=== PATIENT | female | born 1970 | race African-American/Black ===

== ENCOUNTER 2020-08-01 13:16 | Outpatient (REF) | payer MEDICAID, SELFPAY ==
[2020-08-06 03:11] LABS: HPV mRNA E6/E7 rflx Not Detected (Not Detected)
== END 2020-08-01 13:17 | disposition home or self-care (01) ==
LOC: HO.LAB 13:16
PROVIDERS: PCP Family Medicine; Referring Provider Family Medicine; Visit Provider Obstetrics & Gynecology
DX: Z01.419 Encounter for gynecological examination (general) (routine) without abnormal findings (principal)
CPT/HCPCS: 87624; 87625; 88142

== ENCOUNTER 2020-08-19 14:08 | Outpatient (REF) | payer MEDICAID, SELFPAY ==
--- NOTE | 2020-08-19 14:15 | XR_ITS ---
EXAMINATION: XR HAND, RIGHT CLINICAL INFORMATION: Pain in right hand. COMPARISON: 06/12/2019 TECHNIQUE: PA, lateral, and oblique views of the right hand. FINDINGS: Bones have normal alignment throughout the hand and wrist. No fracture or subluxation. No acute findings compared to 06/12/2019. Chronic nonuniform narrowing of joint space, subarticular sclerosis, subarticular cystic change and osteophyte formation of the moderately degenerated first carpometacarpal joint. Mild osteoarthritic change at the thumb interphalangeal joint. No erosion or periostitis. XR/XR hand RT min 3V IMPRESSION: * No acute findings in the right hand or wrist compared to 06/12/2019. * Chronic, moderate osteoarthritis of the first carpometacarpal joint, and mild osteoarthritis of the thumb interphalangeal joint.
== END 2020-08-19 14:09 | disposition home or self-care (01) ==
LOC: HO.XRAY 14:08
PROVIDERS: PCP Family Medicine; Visit Provider Nurse Practitioner Family
DX: M79.641 Pain in right hand (principal)
CPT/HCPCS: 73130

== ENCOUNTER 2020-08-29 10:58 | Outpatient (REF) | payer MEDICAID, SELFPAY ==
--- NOTE | 2020-08-29 11:02 | MM_ITS ---
EXAMINATION: MM SCREENING DIGITAL MAMMOGRAPHY, BILATERAL CLINICAL INFORMATION: Screening. Asymptomatic. The lifetime risk of breast cancer based on the Tyrer-Cuzick Model is 15%. COMPARISON: Mammography: 03/21/2018, 02/06/2017 TECHNIQUE: Digital mammography is performed in craniocaudal and mediolateral oblique views along with computer-aided detection (CAD). FINDINGS: There are scattered areas of fibroglandular density (ACR BI-RADS breast composition Category b). There are no significant masses, abnormal calcifications, or other abnormalities. Parenchymal pattern is similar to prior exam. No developing density. No significant changes. MM/MM screening mammo BI IMPRESSION: No mammographic evidence of malignancy. ASSESSMENT: BI-RADS 1: Negative RECOMMENDATION: Routine annual mammography screening. This patient's information was entered into a reminder system with a target due date for their next mammogram.
== END 2020-08-29 10:59 | disposition home or self-care (01) ==
LOC: HO.MAMMO 10:58
PROVIDERS: Visit Provider Obstetrics & Gynecology
DX: Z01.419 Encounter for gynecological examination (general) (routine) without abnormal findings (principal); Z12.31 Encounter for screening mammogram for malignant neoplasm of breast
CPT/HCPCS: 77067

== ENCOUNTER → 2020-09-21 10:41 | Outpatient (BNVA) | payer MEDICAID, SELFPAY | PROVIDERS: PCP Family Medicine; Visit Provider Internal Medicine Gastroenterology | DX: Z76.89 Persons encountering health services in other specified circumstances (principal) ==

== ENCOUNTER 2020-10-19 08:58 | Outpatient (REF) | payer MEDICAID, SELFPAY ==
--- NOTE | ~2020-10-19 | XR_ITS ---
EXAMINATION: XR HAND, RIGHT CLINICAL INFORMATION: Pain COMPARISON: Previous x-ray August 2020 TECHNIQUE: PA, lateral, and oblique views of the right hand. FINDINGS: The bones are osteopenic. No fracture or dislocation is seen. There is arthritis at the first FCI joint with joint space narrowing and osteophyte formation. There are small osteophytes at the IP joint of the thumb as well. Joint spaces are otherwise normal. Soft tissues are normal. XR/XR hand RT min 3V IMPRESSION: Arthritis of the thumb at the first FCI joint and IP joints. Osteopenia.
== END 2020-10-19 08:59 | disposition home or self-care (01) ==
LOC: HO.HOSX 08:58
PROVIDERS: Visit Provider Orthopaedic Surgery
DX: M18.11 Unilateral primary osteoarthritis of first carpometacarpal joint, right hand (principal); R20.0 Anesthesia of skin; R20.2 Paresthesia of skin
CPT/HCPCS: 20605; 73130; 99202

== ENCOUNTER → 2020-11-30 09:53 | Outpatient (BNVA) | payer MEDICAID, SELFPAY | PROVIDERS: PCP Family Medicine; Visit Provider Internal Medicine Gastroenterology ==

== ENCOUNTER 2021-01-12 09:06 | Outpatient (REF) | payer MEDICAID, SELFPAY ==
--- NOTE | 2021-01-12 09:09 | EMG_ITS ---
Right median and ulnar motor and sensory studies were performed. Right radial sensory study was performed and paraspinal muscles were tested. IMPRESSION: Mild right ulnar neuropathy across the cubital tunnel. MD JORGE L Black/LEV / [id number]
== END 2021-01-12 09:07 | disposition home or self-care (01) ==
LOC: HO.NEURO 09:06
PROVIDERS: Visit Provider Orthopaedic Surgery
DX: R20.0 Anesthesia of skin (principal); R20.2 Paresthesia of skin
CPT/HCPCS: 95886; 95909

== ENCOUNTER 2021-02-26 11:41 | Emergency (ER) | payer MEDICAID, SELFPAY ==
--- NOTE | ~2021-02-26 | XR_ITS ---
EXAMINATION: LEFT FOOT LEFT ANKLE AND RIGHT WRIST X-RAYS CLINICAL INFORMATION: Pain and swelling. Trauma. COMPARISON: None TECHNIQUE: 3 views of the left foot, 3 views of the left ankle and 4 views of the right wrist FINDINGS: Left foot: Bone alignment is normal. No fracture or dislocation is seen. Joint spaces are normal. Soft tissues are normal. Left ankle: Bone alignment is normal. No fracture or dislocation is seen. Ankle mortise is normal. Soft tissues are normal. Right wrist: Bone alignment is normal. No fracture or dislocation is seen. There is arthritis at the first LONGTERM joint. Joint spaces are otherwise normal. Soft tissues are normal. XR/XR wrist RT min 3V IMPRESSION: Normal left foot and ankle x-rays. Arthritis at the first LONGTERM joint. Otherwise normal right wrist.
--- NOTE | ~2021-02-26 | XR_ITS ---
EXAMINATION: LEFT FOOT LEFT ANKLE AND RIGHT WRIST X-RAYS CLINICAL INFORMATION: Pain and swelling. Trauma. COMPARISON: None TECHNIQUE: 3 views of the left foot, 3 views of the left ankle and 4 views of the right wrist FINDINGS: Left foot: Bone alignment is normal. No fracture or dislocation is seen. Joint spaces are normal. Soft tissues are normal. Left ankle: Bone alignment is normal. No fracture or dislocation is seen. Ankle mortise is normal. Soft tissues are normal. Right wrist: Bone alignment is normal. No fracture or dislocation is seen. There is arthritis at the first CARE HOME joint. Joint spaces are otherwise normal. Soft tissues are normal. XR/XR ankle LT min 3V IMPRESSION: Normal left foot and ankle x-rays. Arthritis at the first CARE HOME joint. Otherwise normal right wrist.
--- NOTE | ~2021-02-26 | XR_ITS ---
EXAMINATION: LEFT FOOT LEFT ANKLE AND RIGHT WRIST X-RAYS CLINICAL INFORMATION: Pain and swelling. Trauma. COMPARISON: None TECHNIQUE: 3 views of the left foot, 3 views of the left ankle and 4 views of the right wrist FINDINGS: Left foot: Bone alignment is normal. No fracture or dislocation is seen. Joint spaces are normal. Soft tissues are normal. Left ankle: Bone alignment is normal. No fracture or dislocation is seen. Ankle mortise is normal. Soft tissues are normal. Right wrist: Bone alignment is normal. No fracture or dislocation is seen. There is arthritis at the first SEN[facility] LIVING joint. Joint spaces are otherwise normal. Soft tissues are normal. XR/XR foot LT min 3V IMPRESSION: Normal left foot and ankle x-rays. Arthritis at the first SENIOR LIVING joint. Otherwise normal right wrist.
[2021-02-26 12:06] VITALS: BP 124/76; PULSE 64; RESP 16; TEMP 36.9; O2SAT 96; BMI 32.2
--- NOTE | 2021-02-26 12:46 | ED_ITS ---
HPI - General Adult General Chief complaint: General Medical Stated complaint: lt ft & and rt hand pain - fall Time Seen by Provider: 02/26/21 12:45 History of Present Illness HPI narrative: Patient complains of right hand and wrist pain as well as left ankle and knee pain after trip and fall 2 days ago, this happened at home and she is able to walk on it but it hurts No head injury no neck injury no back injury Related Data Home Medications Medication Instructions Recorded Confirmed amitriptyline 150 mg tablet 150 mg PO BEDTIME 09/21/20 12/31/20 baclofen 10 mg tablet 10 mg PO TID 09/21/20 12/31/20 gabapentin 400 mg capsule 400 mg PO TID 09/21/20 12/31/20 loratadine 10 mg tablet 10 mg PO DAILY 09/21/20 12/31/20 ondansetron HCl 4 mg tablet 4 mg PO Q8H 09/21/20 12/31/20 oxycodone 5 mg tablet 5 mg PO BID PRN 09/21/20 12/31/20 pantoprazole 40 mg tablet,delayed 40 mg PO DAILY 09/21/20 12/31/20 release propranolol 120 mg capsule,24 120 mg PO DAILY 09/21/20 12/31/20 hr,extended release simethicone 80 mg chewable tablet 80 mg PO BID-QID PRN 09/21/20 12/31/20 simvastatin 10 mg tablet 10 mg PO BEDTIME 09/21/20 12/31/20 Previous Rx's Medication Instructions Recorded sucralfate 100 mg/mL oral 10 ml PO DAILY 30 Days #300 ml 09/21/20 suspension docusate sodium 100 mg capsule 100 mg PO DAILY #30 cap 11/17/20 methylcellulose (laxative) 500 mg 500 mg PO BID 30 Days #60 tab 11/30/20 tablet ondansetron HCl 4 mg tablet 4 mg PO Q8H PRN #90 cap 01/05/21 sennosides 8.6 mg tablet 17.2 mg PO BID #120 tab 02/20/21 ibuprofen 600 mg PO Q6H PRN #20 tab 02/26/21 Allergies Allergy/AdvReac Type Severity Reaction Status Date / Time Penicillins [PENICILLINS] Allergy Severe RASH Verified 11/30/20 09:57 penicillin V Allergy Unknown unknown Verified 11/30/20 09:57 Review of Systems Review of Systems: Positive for right wrist left ankle and left knee pain Negatives are no dizziness no weakness no fainting no feeling faint no headache no vision change no neck pain no numbness weakness or tingling no back pain no chest pain no abdominal pain Yes all other systems are reviewed and are negative FOR[facility], LAT[facility] Past Medical History Source: nursing notes reviewed Medical History (Updated 02/26/21 @ 13:10 by GLORIA Muniz) Adrenal nodule Depression Diabetes mellitus Gastric varices GERD (gastroesophageal reflux disease) HTN (hypertension) Hyperlipemia IBS (irritable bowel syndrome) Migraine headache Surgical History (Updated 11/30/20 @ 10:02 by HARPREET Lira) History of esophagogastroduodenoscopy (EGD) Hx of colonoscopy Hx of discectomy Hx of tubal ligation Family History Family History Father Hx of type 1 diabetes mellitus History of epilepsy Mother Family history of high blood pressure Hx of cancer of uterus Social History Social History (Updated 11/30/20 @ 10:04 by HARPREET Lira) Household Members: Children Alcohol intake: never Advance Directives: Yes Advance Directives Information Provided: Yes Advance Directives on File: No Current occupational status: employed 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 Sexual orientation: Straight/Heterosexual Gender identity: female Physical Exam Vital Signs: Vital Signs: Last Vital Signs Temp 98.4 F 02/26/21 12:06 Pulse 64 02/26/21 12:06 Resp 16 02/26/21 12:06 BP 124/76 02/26/21 12:06 Pulse Ox 96 02/26/21 12:06 Body Mass Index 32.2 General appearance no acute distress Head is normocephalic atraumatic Eyes pupils equal round reactive to light and extraocular motions are intact The neck is supple and nontender Respiratory no distress The back is full range of motion Extremities the right wrist has mild dorsal tenderness no snuffbox tenderness no swelling, positive full range of motion without discomfort and the hand has normal appearance distal and is neurovascular intact distal The left knee has an abrasion over the anterior knee, there is full range of motion in the knee no swelling no deformity no effusion no ligamentous laxity The left ankle has lateral malleolus mild swelling, has full range of motion, skin is intact and neurovascular is intact The patient's gait she is walking with a mild limp but ambulates easily Course Course Course Narrative: Well-appearing patient using wrist fully and ambulating easily without crutches is discharged with a work note and will follow with Orthopedics if needed for any ongoing problems Discharge Plan Discharge Clinical Impression: Left ankle sprain, Right wrist sprain, Abrasion of left knee Patient Disposition: Home, Self-Care Additional Instructions: No bone injury seen on x-ray Follow with her doctor or orthopedist if needed if not better in a few days Return any time any concerns Prescriptions: New ibuprofen 600 mg tablet 600 mg PO Q6H PRN (Reason: pain) Qty: 20 RF: 0 No Action docusate sodium [DOK] 100 mg capsule 100 mg PO DAILY Qty: 30 RF: 2 ondansetron HCl 4 mg tablet 4 mg PO Q8H PRN (Reason: for nausea/vomiting) Qty: 90 RF: 0 sennosides [senna] 8.6 mg tablet 17.2 mg PO BID Qty: 120 RF: 2 Citrucel 500 mg tablet 500 mg PO BID 30 Days Qty: 60 RF: 2 pantoprazole 40 mg tablet,delayed release (DR/EC) 40 mg PO DAILY RF: 0 simethicone [Gas Relief (simethicone)] 80 mg tablet,chewable 80 mg PO BID-QID PRNRF: 0 gabapentin 400 mg capsule 400 mg PO TID RF: 0 amitriptyline 150 mg tablet 150 mg PO BEDTIME RF: 0 propranolol 120 mg capsule,extended release 24 hr 120 mg PO DAILY RF: 0 baclofen 10 mg tablet 10 mg PO TID RF: 0 oxycodone 5 mg tablet 5 mg PO BID PRNRF: 0 simvastatin 10 mg tablet 10 mg PO BEDTIME RF: 0 loratadine 10 mg tablet 10 mg PO DAILY RF: 0 ondansetron HCl 4 mg tablet 4 mg PO Q8H RF: 0 sucralfate [Carafate] 100 mg/mL suspension 10 ml PO DAILY 30 Days Qty: 300 RF: 2 Referrals: Seferino Troy MD [Physician] - 2 days (Right wrist and left ankle injuries) Stand Alone Forms: Work/School Release
[2021-02-26] MEDS: Diphth,Pertus(ACell),Tet Adult 0.5 ML SYRINGE IM (13:35)
== END 2021-02-26 13:39 | disposition home or self-care (01) ==
PROVIDERS: Emergency Provider Emergency Medicine; PCP Family Medicine
DX: S63.501A Unspecified sprain of right wrist, initial encounter (principal); S93.402A Sprain of unspecified ligament of left ankle, initial encounter; S80.212A Abrasion, left knee, initial encounter; E11.9 Type 2 diabetes mellitus without complications; I10 Essential (primary) hypertension; W01.0XXA Fall on same level from slipping, tripping and stumbling without subsequent striking against object, initial encounter; Y93.9 Activity, unspecified; Y92.9 Unspecified place or not applicable; Y99.9 Unspecified external cause status; Z79.899 Other long term (current) drug therapy
CPT/HCPCS: 73110; 73610; 73630; 90471; 90715; 99283; 99284

== ENCOUNTER → 2021-03-01 09:59 | Outpatient (BNVA) | payer MEDICAID, SELFPAY | PROVIDERS: PCP Family Medicine; Visit Provider Nurse Practitioner Family ==

== ENCOUNTER 2021-03-06 07:37 | Outpatient (REF) | payer MEDICAID, SELFPAY ==
--- NOTE | ~2021-03-06 | XR_ITS ---
EXAMINATION: XR HAND, RIGHT XR WRIST, RIGHT CLINICAL INFORMATION: Wrist pain. COMPARISON: 02/26/2021 TECHNIQUE: 4 views right wrist. 3 of the views containing right hand. FINDINGS: There is no evidence of acute fracture or dislocation of the right hand or wrist. There is degenerative marginal spurring seen involving the 1st interphalangeal joint. There is degenerative change with narrowing of the joint space with marginal spurring and sclerosis about the 1st carpometacarpal joint. There is narrowing of the triscaphe joint. XR/XR hand wrist RT IMPRESSION: Degenerative change of the right hand and wrist involving the 1st interphalangeal joint and the 1st carpometacarpal joint predominately.
== END 2021-03-06 07:38 | disposition home or self-care (01) ==
LOC: HO.XRAY 07:37
PROVIDERS: PCP Family Medicine; Visit Provider Family Medicine
DX: M25.531 Pain in right wrist (principal); Z91.81 History of falling; M25.431 Effusion, right wrist
CPT/HCPCS: 73110; 73130

== ENCOUNTER 2021-03-24 09:34 | Day surgery (SDC) | payer MEDICAID, SELFPAY ==
--- NOTE | 2021-03-23 10:49 | P.CONAN_ITS ---
Documented by User: Roro Banks 03/23/21 10:50 HPI - Anesthesia Eval Consult details Narrative: 50yo F for Upper Endoscopy PMFSH Active Problems Active Problems: All Active Problems (Updated 02/27/21 @ 00:01 by Mehran Harris) Arthritis of carpometacarpal (CMC) joint of right thumb (Acute) Numbness and tingling in right hand (Acute) IBS (irritable bowel syndrome) (Acute) GERD (gastroesophageal reflux disease) (Acute) Well woman exam (Acute) Past Medical History Medical History Adrenal nodule Depression Diabetes mellitus Gastric varices GERD (gastroesophageal reflux disease) HTN (hypertension) Hyperlipemia IBS (irritable bowel syndrome) Migraine headache Family History Family History Father Hx of type 1 diabetes mellitus History of epilepsy Mother Family history of high blood pressure Hx of cancer of uterus Surgical History Surgical History History of esophagogastroduodenoscopy (EGD) Hx of colonoscopy Hx of discectomy Hx of tubal ligation Social History Social History Household Members: Children Alcohol intake: never Patient Tobacco Use Status: Never used Tobacco Use of substances other than those prescribed or required for medical reasons: No Are you DNR?: No Advance Directives: No Advance Directives Information Provided: Yes Current occupational status: employed 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 Sexual orientation: Straight/Heterosexual Gender identity: female Meds Allergies Allergy/AdvReac Type Severity Reaction Status Date / Time Penicillins [PENICILLINS] Allergy Severe RASH Verified 03/01/21 10:00 penicillin V Allergy Unknown unknown Verified 03/01/21 10:00 Home Medications Medication Instructions Recorded Confirmed Last Taken Type amitriptyline 150 mg tablet 150 mg PO BEDTIME 09/21/20 12/31/20 Unknown History baclofen 10 mg tablet 10 mg PO TID 09/21/20 12/31/20 Unknown History gabapentin 400 mg capsule 400 mg PO TID 09/21/20 12/31/20 Unknown History loratadine 10 mg tablet 10 mg PO DAILY 09/21/20 12/31/20 Unknown History ondansetron HCl 4 mg tablet 4 mg PO Q8H 09/21/20 12/31/20 Unknown History simethicone 80 mg chewable tablet 80 mg PO BID-QID PRN 09/21/20 12/31/20 Unknown History atorvastatin 10 mg tablet 10 mg PO BEDTIME 03/01/21 Unknown History metformin 500 mg tablet 500 mg PO BID 03/01/21 Unknown History propranolol 120 mg capsule,24 120 mg PO DAILY 03/01/21 Unknown History hr,extended release Exam Exam Date and Time: March 23, 2021 104 Assessment and Plan Assessment Anesthesia Assessment: Chart Reviewed Documented by User: Lety Willams 03/24/21 10:45 PMFSH Past Medical History Medical History Adrenal nodule Depression Diabetes mellitus Gastric varices GERD (gastroesophageal reflux disease) HTN (hypertension) Hyperlipemia IBS (irritable bowel syndrome) Migraine headache Family History Family History Father Hx of type 1 diabetes mellitus History of epilepsy Mother Family history of high blood pressure Hx of cancer of uterus Surgical History Surgical History History of esophagogastroduodenoscopy (EGD) Hx of colonoscopy Hx of discectomy Hx of tubal ligation Social History Social History Household Members: Children Alcohol intake: never Patient Tobacco Use Status: Never used Tobacco Use of substances other than those prescribed or required for medical reasons: No Are you DNR?: No Advance Directives: No Advance Directives Information Provided: Yes Current occupational status: employed 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 occupation: [employer]- right handed Sexual orientation: Straight/Heterosexual Gender identity: female Meds Allergies Allergy/AdvReac Type Severity Reaction Status Date / Time Penicillins [PENICILLINS] Allergy Severe RASH Verified 03/01/21 10:00 penicillin V Allergy Unknown unknown Verified 03/01/21 10:00 Home Medications Medication Instructions Recorded Confirmed Last Taken Type amitriptyline 150 mg tablet 150 mg PO BEDTIME 09/21/20 12/31/20 Unknown History baclofen 10 mg tablet 10 mg PO TID 09/21/20 12/31/20 Unknown History gabapentin 400 mg capsule 400 mg PO TID 09/21/20 12/31/20 Unknown History loratadine 10 mg tablet 10 mg PO DAILY 09/21/20 12/31/20 Unknown History ondansetron HCl 4 mg tablet 4 mg PO Q8H 09/21/20 12/31/20 Unknown History simethicone 80 mg chewable tablet 80 mg PO BID-QID PRN 09/21/20 12/31/20 Unknown History atorvastatin 10 mg tablet 10 mg PO BEDTIME 03/01/21 Unknown History metformin 500 mg tablet 500 mg PO BID 03/01/21 Unknown History propranolol 120 mg capsule,24 120 mg PO DAILY 03/01/21 Unknown History hr,extended release Exam Airway Mallampati Class: II TM Dist: >3cm Neck ROM: Full Loose/Missing/Broken Teeth: No Heart: RRR Lungs: CTA Assessment and Plan Assessment Anesthesia Assessment: Anesthesia Plan Discussed and Chart Reviewed Final Anesthetic Review NPO: Yes ASA Class: II Final Preanesthetic Review: Meds/Allgs Chart Reviewed, Consent Obtained/Reviewed and Anes Risks/Benef Reviewed Patient Risk: Low Procedure Risk: Intermediate Anesthetic Plan Anesthetic Plan: MAC: Disposition: Standard PACU
[2021-03-24 10:00] LABS: Glucose, Whole Blood 112 mg/dL (60-115)
[2021-03-24 10:10] VITALS: BP 151/91; PULSE 96; RESP 18; TEMP 36.1; O2SAT 97; BMI 31.2
[2021-03-24] MEDS: Lactated Ringers 1,000 ML 100 ML IVCONT (10:15)
--- NOTE | 2021-03-24 10:20 | MHC.SHP ---
Pre-Procedural Eval Section A Date of Service: 03/24/21 The patient is an INPATIENT: No Changes since office visit: Yes Patient answered all questions; No Cold of Flu in the past 2 weeks, No New Medical Problems and No Changes in Medication The History & Physical has been completed within 30 days and I have reviewed it.: Yes Section B Chief Complaint: Epigastric Pain Allergies: Allergies Allergy/AdvReac Type Severity Reaction Status Date / Time Penicillins [PENICILLINS] Allergy Severe RASH Verified 03/01/21 10:00 penicillin V Allergy Unknown unknown Verified 03/01/21 10:00 Plan I have reviewed the history and physical and performed a pertinent physical examination on my patient. No changes have occurred unless specified.
[2021-03-24 11:32] VITALS: BP 117/70; PULSE 100; RESP 18; TEMP 36.2; O2SAT 99
[2021-03-24 11:47] VITALS: BP 138/86; PULSE 95; RESP 18; O2SAT 96
--- NOTE | 2021-03-24 17:33 | P.OP_ITS ---
Operative Note Operative Note Date of Service: 03/24/21 Narrative: Pre-op diagnosis: GERD, dysphagia, Post-op diagnosis: other (GERD, dysphagia, gastric polyps, gastritis) Procedure: FLEXIBLE TRANSORAL UPPER GASTROINTESTINAL ENDOSCOPY WITH BIOPSIES AND ESOPHAGEAL BALLOON DILATION Consent: Indications for the procedure and potential complications of bleeding, perforation, reaction to medications and missed diagnosis were discussed with the patient and informed consent was obtained. Instrument: Olympus GIF H 190 mid size upper endoscope Monitoring: Vital signs and clinical assessment, continuous EKG monitoring, Pulse oximetry, Carbon Dioxide monitoring and blood pressure monitoring were done throughout the procedure. Procedure: The patient was placed in the left lateral decubitis position and pre-procedure medications were administered and a bite block was placed. The endoscope was inserted into the mouth and advanced under direct vision to the third part of duodenum. A careful inspection was made as the upper endoscope was withdrawn including a retroflexed examination of the proximal stomach; Findings and interventions are described below. Findings: Larynx: Edema of the arytenoid cartilages Esophagus: Tortuous esophagus with increased tertiary contractions without stricture or ring - biopsies were obtained from proximal esophagus to check for EOE. GE junction at 38 cms. No esophagitis or Urias's. Esophageal balloon dilation was performed with a 20 mm (60 F) CRE balloon times 60 seconds Stomach: A few 2-4 mm benign-appearing polyps in the gastric body - biopsied. Mild gastric erythema. Biopsies were obtained. Grade 2 flap valve on retroflexed examination of the cardia. Duodenum: Normal bulb and descending duodenum. Biopsies were obtained from 3rd part of the duodenum to check for celiac sprue Intervention: Biopsies and esophageal balloon dilation as noted above Impression and Post Procedure Diagnosis: Endoscopy Findings: LARYNX: Changes suggestive of LPRD ESOPHAGUS: Tortuous esophagus with increased tertiary contractions without stricture or ring - biopsies were obtained from proximal esophagus to check for EOE. GE junction at 38 cms. No esophagitis or Urias's. Esophageal balloon dilation was performed with a 20 mm (60 F) CRE balloon times 60 seconds STOMACH: Gastritis and gastric polyps DUODENUM: Normal - biopsied to check for celiac sprue Plan: Await pathology results Patient has an appointment on 04/07/21 in the GI Clinic with Inga Donovan NP -. Consider further evaluation with a barium swallow to rule out Achalasia. Above findings were reviewed with the patient and GERD and Gastric polyps handouts were given in the discharge area Surgeon: Loi Barbosa MD Anesthesia: MAC (Dr Willams) Was an Instructional Technology Coach used for this Procedure?: No Instructional Technology Coach: Gabriele Mosley Estimated blood loss (mL): 0 Pathology: other (A- SMALL BOWEL BXS R/O CELIAC B- GASTRIC ANTRUM BXS R/O H. PYLORI C- GASTRIC POLYP D- PROXIMAL ESOPHAGUS BXS R/O EOE) Condition: stable Disposition: PACU
== END 2021-03-24 13:07 | disposition home or self-care (01) ==
PROVIDERS: PCP Family Medicine; Visit Provider Internal Medicine Gastroenterology
PROC: 0DJ08ZZ Inspection of Upper Intestinal Tract, Via Natural or Artificial Opening Endoscopic (ICD-10-PCS; CPT 43235; principal; 2021-03-24 10:50)
DX: K21.9 Gastro-esophageal reflux disease without esophagitis (principal); K29.50 Unspecified chronic gastritis without bleeding; K31.7 Polyp of stomach and duodenum; K22.8 Other specified diseases of esophagus; K58.1 Irritable bowel syndrome with constipation; R13.10 Dysphagia, unspecified; I86.4 Gastric varices; I10 Essential (primary) hypertension; E11.9 Type 2 diabetes mellitus without complications; Z88.0 Allergy status to penicillin; Z79.84 Long term (current) use of oral hypoglycemic drugs; Z79.899 Other long term (current) drug therapy
CPT/HCPCS: 43249; 43239; 82947; 88305; 88342; C1726

== ENCOUNTER → 2021-04-05 09:42 | Outpatient (BNVA) | payer MEDICAID, SELFPAY | PROVIDERS: PCP Family Medicine; Visit Provider Orthopaedic Surgery | DX: M18.11 Unilateral primary osteoarthritis of first carpometacarpal joint, right hand (principal); G56.21 Lesion of ulnar nerve, right upper limb | CPT/HCPCS: 99212 ==

== ENCOUNTER → 2021-04-06 07:59 | Outpatient (BNVA) | payer MEDICAID, SELFPAY | PROVIDERS: PCP Family Medicine; Visit Provider Physician Assistant | DX: S93.402A Sprain of unspecified ligament of left ankle, initial encounter (principal) | CPT/HCPCS: 99202 ==

== ENCOUNTER → 2021-04-07 08:06 | Outpatient (BNVA) | payer MEDICAID, SELFPAY | PROVIDERS: PCP Family Medicine; Visit Provider Nurse Practitioner Family | DX: K21.9 Gastro-esophageal reflux disease without esophagitis (principal); K58.9 Irritable bowel syndrome, unspecified | CPT/HCPCS: 99212 ==

== ENCOUNTER → 2021-05-09 07:58 | Outpatient (BNVA) | payer MEDICAID, SELFPAY | PROVIDERS: PCP Family Medicine; Visit Provider Nurse Practitioner Family ==

== ENCOUNTER 2021-05-18 09:26 | Outpatient (REF) | payer MEDICAID, SELFPAY ==
--- NOTE | ~2021-05-18 | FL_ITS ---
EXAMINATION: FL BARIUM SWALLOW CLINICAL INFORMATION: Gastroesophageal reflux disease COMPARISON: Barium swallow March 2020 TECHNIQUE: Barium swallow examination is performed using fluoroscopic evaluation in addition to multiple fluoroscopic spot views. The patient is imaged both upright and prone and using both thick and thin sulfate along with effervescent granules. Barium tablet was also administered. Fluoroscopy time: 1.2 minutes DAP: 11 Gycm2 Images: 42 FINDINGS: The swallowing mechanism is normal. No aspiration or penetration is seen. There is severe gastroesophageal reflux. Esophageal motility appeared normal with the patient upright. There is abnormal esophageal motility with patient in the prone/DAMON position. There is a tiny sliding-type hiatal hernia. No mass or stricture is seen. FL/FL barium swallow IMPRESSION: Severe gastroesophageal reflux. There is abnormal esophageal motility seen with the patient in the prone/DMAON position.
== END 2021-05-18 09:27 | disposition home or self-care (01) ==
LOC: HO.XRAY 09:26
PROVIDERS: PCP Family Medicine; Visit Provider Nurse Practitioner Family
DX: K21.9 Gastro-esophageal reflux disease without esophagitis (principal)
CPT/HCPCS: 74220

== ENCOUNTER → 2021-06-06 08:01 | Outpatient (BNVA) | payer MEDICAID, SELFPAY | PROVIDERS: PCP Family Medicine; Referring Provider Family Medicine; Visit Provider Nurse Practitioner Family ==

== ENCOUNTER 2021-08-02 08:52 | Outpatient (REF) | payer MEDICAID, SELFPAY ==
[2021-08-02 11:41] LABS: Syphilis Screen Nonreactive (Nonreactive)
[2021-08-02 11:42] LABS: ~Hepatitis C Antibody Nonreactive (Nonreactive)
[2021-08-02 11:50] LABS: HBsAGNum1 0.22 S/CO (0.00-0.99); HIV AB/AG Nonreactive (Nonreactive); HIV Num 1 0.05 S/CO (0.00-0.99); Hepatitis B Surface Antigen Negative (Negative)
[2021-08-02 13:10] LABS: BV Int Neg Control Negative (Negative); BV Int Pos Control Positive (Positive)
[2021-08-02 14:03] LABS: CT PCR NOT DETECTED (Not Detect.); NG PCR NOT DETECTED (Not Detect.)
== END 2021-08-02 08:53 | disposition home or self-care (01) ==
LOC: HO.LAB 08:52
PROVIDERS: PCP Family Medicine; Visit Provider Obstetrics & Gynecology
DX: Z01.411 Encounter for gynecological examination (general) (routine) with abnormal findings (principal); Z11.4 Encounter for screening for human immunodeficiency virus [HIV]; B96.89 Other specified bacterial agents as the cause of diseases classified elsewhere; N76.0 Acute vaginitis; R32 Unspecified urinary incontinence
CPT/HCPCS: 36415; 86780; 86803; 87340; 87389; 87480; 87491; 87510; 87591; 87660

== ENCOUNTER → 2021-08-09 08:43 | Outpatient (BNVA) | payer MEDICAID, SELFPAY | PROVIDERS: Referring Provider Family Medicine; Visit Provider Nurse Practitioner Family | DX: K58.1 Irritable bowel syndrome with constipation (principal); K21.9 Gastro-esophageal reflux disease without esophagitis | CPT/HCPCS: 99212 ==

== ENCOUNTER 2021-08-15 15:46 | Outpatient (REF) | payer MEDICAID, SELFPAY | END 2021-08-15 15:47 | disposition home or self-care (01) | LOC: HO.LNP 15:46 | PROVIDERS: Visit Provider Nurse Practitioner Family | DX: K21.9 Gastro-esophageal reflux disease without esophagitis (principal) | CPT/HCPCS: 87338 ==

== ENCOUNTER 2021-09-05 14:53 | Outpatient (REF) | payer MEDICAID, SELFPAY ==
--- NOTE | ~2021-09-05 | MM_ITS ---
EXAMINATION: MM SCREENING DIGITAL BREAST TOMOSYNTHESIS, BILATERAL CLINICAL INFORMATION: Screening. Asymptomatic. The lifetime risk of breast cancer based on the Tyrer-Cuzick Model is 11%. COMPARISON: Mammography: 08/29/2020, 03/21/2018, 02/06/2017 TECHNIQUE: Digital breast tomosynthesis is performed in both the craniocaudal and mediolateral oblique views along with computer-aided detection (CAD). Synthesized 2D images are generated from the tomosynthesis. Additional bilateral MLO views are provided. FINDINGS: There are scattered areas of fibroglandular density (ACR BI-RADS breast composition Category b). There are no significant masses, abnormal calcifications, or other abnormalities. MM/MM tomosynthesis screening BI IMPRESSION: No mammographic evidence of malignancy. ASSESSMENT: BI-RADS 1: Negative RECOMMENDATION: Routine annual mammography screening. This patient's information was entered into a reminder system with a target due date for their next mammogram.
== END 2021-09-05 14:54 | disposition home or self-care (01) ==
LOC: HO.MAMMO 14:53
PROVIDERS: PCP Family Medicine; Visit Provider Family Medicine
DX: Z12.31 Encounter for screening mammogram for malignant neoplasm of breast (principal)
CPT/HCPCS: 77063; 77067

== ENCOUNTER → 2021-10-02 12:56 | Outpatient (BNVA) | payer MEDICAID, SELFPAY | PROVIDERS: PCP Family Medicine | DX: N20.0 Calculus of kidney (principal); R32 Unspecified urinary incontinence | CPT/HCPCS: 51798; 99202 ==

== ENCOUNTER 2021-10-10 09:19 | Outpatient (REF) | payer MEDICAID, SELFPAY ==
[2021-10-10 12:07] LABS: Hematocrit 39.2 % (37.0-47.0); Hemoglobin 12.1 g/dl (12.0-16.0); Mean Corpuscular HGB Conc 30.9 g/dl (31.0-35.0); Mean Corpuscular Hemoglobin 27.3 pg (27.0-33.0); Mean Corpuscular Volume 88.3 fL (80.0-98.0); Mean Platelet Volume 8.6 fL (9.4-12.3); Platelet Count 317 X10*3/uL (160-400); Red Blood Count 4.44 X10*6/uL (4.20-5.50); Red Cell Distribution Width 13.2 % (11.0-16.0); White Blood Count 7.1 X10*3/uL (4.8-10.8)
[2021-10-10 12:28] LABS: Alanine Aminotransferase 31 U/L (0-31); Albumin Level 4.2 g/dL (3.5-5.0); Alkaline Phosphatase 130 U/L (39-117); Anion Gap 10 (12-20); Aspartate Amino Transferase 25 U/L (5-31); Bilirubin Total 0.2 mg/dL (0.0-1.0); Blood Urea Nitrogen 16 mg/dL (9-16); Calcium 9.6 mg/dL (8.4-10.2); Carbon Dioxide 29 mmol/L (22-29); Chloride 107 mmol/L (96-108); Estimated Glomerular Filt Rate > 60; Glucose Random 102 mg/dL (60-115); Potassium 4.6 mmol/L (3.3-5.1); Sodium 141 mmol/L (135-145); Total Protein 7.1 g/dL (6.5-8.0)
== END 2021-10-10 09:20 | disposition home or self-care (01) ==
LOC: HO.LAB 09:19
PROVIDERS: PCP Family Medicine; Referring Provider Family Medicine; Visit Provider Nurse Practitioner Family
DX: K58.1 Irritable bowel syndrome with constipation (principal); K21.9 Gastro-esophageal reflux disease without esophagitis; K59.04 Chronic idiopathic constipation
CPT/HCPCS: 36415; 80053; 85027; 99212

== ENCOUNTER 2021-11-08 16:08 | Outpatient (REF) | payer MEDICAID, SELFPAY ==
--- NOTE | ~2021-11-08 | US_ITS ---
EXAMINATION: US RETROPERITONEAL LIMITED (RENAL ONLY) CLINICAL INFORMATION: Right flank pain x6 days, rule out stones. COMPARISON: CT abdomen and pelvis with contrast 05/18/2020. US retroperitoneal limited (renal only) 08/07/2016 and 04/03/2016. TECHNIQUE: Real-time imaging of the kidneys. FINDINGS: RIGHT KIDNEY: 10.4 x 3.9 x 6.2 cm (SAG x AP x TRV). The kidney is normal in size, contour, and echogenicity. Renal cortical thickness is normal. No focal parenchymal lesions or hydronephrosis. Within the upper pole there is a 5 mm echogenic focus but without twinkle artifact. This may represent an angiomyolipoma versus calculus or vessel interface. Within the midpole there is a 4 mm echogenic focus with twinkle artifact likely representing a calculus or vascular interface. LEFT KIDNEY: 10.1 x 5.2 x 5.5 cm (SAG x AP x TRV). The kidney is normal in size, contour, and echogenicity. Renal cortical thickness is normal. No focal parenchymal lesions or hydronephrosis. Within the midpole region there are 2 echogenic foci one measuring 8 mm in length and the other 7 mm in length, both of which do not demonstrate twinkle artifact. These may possibly represent angiomyolipomas or possible nonobstructing calculi. US/US renal BI IMPRESSION: No evidence of obstructive uropathy. Bilateral echogenic foci, some without twinkle artifact, which may represent nonobstructing calculi, angiomyolipomas, or vessel interface.
== END 2021-11-08 16:09 | disposition home or self-care (01) ==
LOC: HO.US 16:08
PROVIDERS: Visit Provider Family Medicine
DX: R10.9 Unspecified abdominal pain (principal)
CPT/HCPCS: 76775

== ENCOUNTER 2021-11-14 09:17 | Outpatient (REF) | payer MEDICAID, SELFPAY ==
[2021-11-14 11:01] LABS: Hematocrit 39.5 % (37.0-47.0); Hemoglobin 12.3 g/dl (12.0-16.0); Mean Corpuscular HGB Conc 31.1 g/dl (31.0-35.0); Mean Corpuscular Hemoglobin 27.3 pg (27.0-33.0); Mean Corpuscular Volume 87.6 fL (80.0-98.0); Mean Platelet Volume 8.5 fL (9.4-12.3); Platelet Count 329 X10*3/uL (160-400); Red Blood Count 4.51 X10*6/uL (4.20-5.50); Red Cell Distribution Width 13.8 % (11.0-16.0); White Blood Count 7.7 X10*3/uL (4.8-10.8)
== END 2021-11-14 09:18 | disposition home or self-care (01) ==
LOC: HO.LAB 09:17
PROVIDERS: PCP Family Medicine; Referring Provider Family Medicine; Visit Provider Nurse Practitioner Family
DX: Z01.818 Encounter for other preprocedural examination (principal); K58.1 Irritable bowel syndrome with constipation; K21.9 Gastro-esophageal reflux disease without esophagitis; K59.04 Chronic idiopathic constipation; K64.9 Unspecified hemorrhoids
CPT/HCPCS: 36415; 85027; 99212

== ENCOUNTER → 2021-11-21 09:05 | Outpatient (BNVA) | payer MEDICAID, SELFPAY | PROVIDERS: PCP Family Medicine | DX: N20.0 Calculus of kidney (principal) | CPT/HCPCS: 99212 ==

== ENCOUNTER → 2022-01-15 08:36 | Outpatient (BNVA) | payer MEDICAID, SELFPAY | PROVIDERS: PCP Family Medicine; Referring Provider Family Medicine; Visit Provider Nurse Practitioner Family | DX: K21.9 Gastro-esophageal reflux disease without esophagitis (principal); K58.1 Irritable bowel syndrome with constipation | CPT/HCPCS: 99212 ==

== ENCOUNTER 2022-03-09 08:27 | Emergency (ER) | payer MEDICAID, SELFPAY ==
--- NOTE | ~2022-03-09 | XR_ITS ---
EXAMINATION: XR CHEST CLINICAL INFORMATION: Chest pressure/discomfort. COMPARISON: None TECHNIQUE: 2 views of the chest were obtained. FINDINGS: No significant abnormality is noted involving the heart, lungs, mediastinum, or soft tissues. Lower cervical/upper thoracic anterior fixation plate and screws. No obvious evidence of hardware fracture. Status post cholecystectomy. XR/XR chest 2V IMPRESSION: Essentially unremarkable examination.
[2022-03-09 08:33] VITALS: BP 147/88; PULSE 66; RESP 20; TEMP 36.1; O2SAT 99; BMI 33.7
--- NOTE | 2022-03-09 08:36 | ECG_ITS ---
Test Reason : chest pain Blood Pressure : / mmHG Vent. Rate : 062 BPM Atrial Rate : 062 BPM P-R Int : 160 ms QRS Dur : 086 ms QT Int : 432 ms P-R-T Axes : 053 010 001 degrees QTc Int : 438 ms Normal sinus rhythm Normal ECG When compared with ECG of 02-DEC-2017 11:11, No significant change was found Referred By: Generic ED Physician Electronically Signed By:RY ARANDA
[2022-03-09 09:00] LABS: MANUAL DIFF FLAG NO
[2022-03-09 09:04] LABS: Basophils Percent Auto 0.4 % (0-2); Eosinophils Absolute Auto 0.3 X10*3/uL (0.0-0.4); Eosinophils Percent Auto 3.1 % (0-4); Hematocrit 36.9 % (37.0-47.0); Hemoglobin 11.7 g/dl (12.0-16.0); Imm Gran Abs Auto 0.03 X10*3/uL (0.00-0.03); Imm Gran Pct Auto 0.3 % (0.0-0.4); Lymphocytes Absolute Auto 3.4 X10*3/uL (1.2-4.9); Lymphocytes Percent Auto 38.1 % (20-40); Mean Corpuscular HGB Conc 31.7 g/dl (31.0-35.0); Mean Corpuscular Hemoglobin 27.3 pg (27.0-33.0); Mean Corpuscular Volume 86.2 fL (80.0-98.0); Mean Platelet Volume 8.4 fL (9.4-12.3); Monocytes Absolute Auto 0.8 X10*3/uL (0.1-1.2); Monocytes Percent Auto 9.2 % (2-11); Neutrophils Absolute Auto 4.4 x10*3/uL (2.0-8.3); Neutrophils Percent Auto 48.9 % (45-73); Platelet Count 308 X10*3/uL (160-400); Red Blood Count 4.28 X10*6/uL (4.20-5.50); Red Cell Distribution Width 13.6 % (11.0-16.0); White Blood Count 8.9 X10*3/uL (4.8-10.8)
[2022-03-09 09:17] LABS: Anion Gap 12 (12-20); Blood Urea Nitrogen 14 mg/dL (9-16); Calcium 8.9 mg/dL (8.4-10.2); Carbon Dioxide 27 mmol/L (22-29); Chloride 107 mmol/L (96-108); Creatinine Clr Calc Pharmacy 59.5; Estimated Glomerular Filt Rate > 60; Glucose Random 173 mg/dL (60-115); Potassium 4.8 mmol/L (3.3-5.1); Sodium 141 mmol/L (135-145)
[2022-03-09 09:23] LABS: Troponin-I High Sensitivity < 3.5 ng/L (<3.5-17.0)
[2022-03-09 09:42] LABS: Influenza A PCR NEGATIVE (Negative); Influenza B PCR NEGATIVE (Negative); Resp Syncy Virus RNA Qual PCR NEGATIVE (Negative); SARS COV2 PCR INHOUSE NEGATIVE (Negative)
[2022-03-09 10:00] VITALS: BP 126/68; PULSE 65; RESP 18; TEMP 36.7; O2SAT 98
--- NOTE | 2022-03-09 10:16 | ED.GENADULT ---
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 Patient states that over the last week, she has had this persistent cough and feeling generally unwell. Patient denies any current dizziness, lightheadedness, abdominal pain, nausea, vomiting, fever, chills, blurry vision, double vision, loss of vision, chest pain, difficulty breathing, shortness of breath, back pain, night sweats, pain with urination, increased urinary frequency, increased urinary urgency, blood in her urine or stool, syncope or a near syncopal episode, recent trauma or falls, bowel incontinence, bladder incontinence, bowel retention, bladder retention, or any other complaints at this time. Onset (ago): week(s) (1) Severity: mild Severity scale (1-10): 3 Relieving factors: none Exacerbating factors: none Associated symptoms: cough Treatments prior to arrival: none Related Data Home Medications Medication Instructions Recorded Confirmed amitriptyline 150 mg tablet 150 mg PO BEDTIME 09/21/20 12/31/20 baclofen 10 mg tablet 10 mg PO TID 09/21/20 12/31/20 gabapentin 400 mg capsule 400 mg PO TID 09/21/20 12/31/20 simethicone 80 mg chewable tablet 80 mg PO BID-QID PRN 09/21/20 12/31/20 (Gas Relief (simethicone)) atorvastatin 10 mg tablet 10 mg PO BEDTIME 03/01/21 metformin 500 mg tablet 500 mg PO BID 03/01/21 propranolol 120 mg capsule,24 120 mg PO DAILY 03/01/21 hr,extended release metformin 500 mg tablet,extended 500 mg PO QPM 08/09/21 release 24 hr baclofen 20 mg tablet 20 mg PO TID PRN muscle spasm 10/02/21 clobetasol 0.05 % topical ointment g topical BID 10/02/21 diclofenac sodium 50 mg 50 mg PO BID PRN pain 10/02/21 tablet,delayed release diphenhydramine HCl 2 % topical topical TID PRN 10/02/21 gel (Benadryl) ergocalciferol (vitamin D2) 1,250 1,250 mcg PO QWEEK 10/02/21 mcg (50,000 unit) capsule (Vitamin D2) fluconazole 150 mg tablet 150 mg PO ONCE 10/02/21 terconazole 0.4 % vaginal cream g vaginal 10/02/21 acetaminophen 650 mg 650 mg PO Q8H PRN fever 11/21/21 tablet,extended release (Mapap Arthritis Pain) loratadine 10 mg tablet 10 mg PO DAILY 11/21/21 pyridoxine (vitamin B6) 50 mg 50 mg PO DAILY 11/21/21 tablet Previous Rx's Medication Instructions Recorded docusate sodium 100 mg capsule 100 mg PO DAILY #30 caps 07/19/21 pyridoxine (vitamin B6) 50 mg 50 mg PO DAILY 90 days #90 caps 10/02/21 capsule cetirizine 10 mg tablet 10 mg PO DAILY #30 tabs 10/10/21 omeprazole 40 mg capsule,delayed 40 mg PO BID #180 caps 01/15/22 release sennosides 8.6 mg tablet (senna) 17.2 mg PO BEDTIME #180 tabs 01/15/22 sucralfate 100 mg/mL oral 10 ml PO DAILY 30 days #300 mL 01/15/22 suspension (Carafate) ondansetron HCl 4 mg tablet 4 mg PO Q8H PRN for 02/20/22 nausea/vomiting 30 days #90 tabs albuterol sulfate 90 mcg/actuation 2 inh inhalation QID PRN shortness 03/09/22 aerosol inhaler of breath or wheezing #6.7 grams doxycycline hyclate 100 mg tablet 100 mg PO BID 7 days #14 tabs 03/09/22 prednisone 20 mg tablet 20 mg PO DAILY 12 days #26 tabs 03/09/22 Allergies Allergy/AdvReac Type Severity Reaction Status Date / Time Penicillins [PENICILLINS] Allergy Severe RASH Verified 03/09/22 08:35 penicillin V Allergy Unknown unknown Verified 03/09/22 08:35 Review of Systems Constitutional: Constitutional: Reports no additional constitutional complaints, Denies chills, Denies fever(s) and Denies night sweats Eyes: Eyes: Reports no additional eye complaints, Denies blurry vision, Denies change in vision, Denies diplopia, Denies eye discharge, Denies loss of vision and Denies eye pain ENT: Denies dizziness Cardiovascular: Cardiovascular: Reports no additional cardiovascular complaints, Denies chest pain, Denies lightheadedness, Denies Loss of Consciousness and Denies dyspnea Respiratory: Respiratory: Reports no additional respiratory complaints, Reports cough and Denies dyspnea Gastrointestinal: Gastrointestinal: Reports no additional gastrointestinal complaints, Denies abdominal pain, Denies melena, Denies hematochezia, Denies change in bowel habits and Denies change in stool character Genitourinary: Genitourinary: Denies hematuria, Denies urinary frequency, Denies dysuria, Denies urinary incontinence, Denies urinary hesitancy and Denies urinary urgency Musculoskeletal: Musculoskeletal: Reports no additional musculoskeletal complaints, Denies numbness and Denies tingling Neurologic: Denies dizziness, Denies loss of vision, Denies numbness and Denies tingling Psychiatric: Psychiatric: Reports no additional psychiatric complaints Endocrine: Endocrine: Reports no additional endocrine complaints Hematologic/Lymphatic: Hematologic/Lymphatic: Reports no additional hematologic/lymphatic complaints Allergic/Immunologic: Allergic/Immunologic: Reports no additional allergic/immunologic complaints [facility] Past Medical History Attestation statement: The following information was validated with the patient. Source: old records reviewed Medical History Adrenal nodule Depression Diabetes mellitus Gastric varices GERD (gastroesophageal reflux disease) HTN (hypertension) Hyperlipemia IBS (irritable bowel syndrome) Migraine headache Renal calculi Surgical History History of esophagogastroduodenoscopy (EGD) History of surgery Hx of colonoscopy Hx of discectomy Hx of tubal ligation Family History Family History Father Hx of type 1 diabetes mellitus History of epilepsy Mother Family history of high blood pressure Hx of cancer of uterus Social History Social History Household Members: Children Alcohol intake: never Patient Tobacco Use Status: Never used Tobacco Advance Directives: Yes Advance Directives Information Provided: Yes Advance Directives on File: No Current occupational status: employed Current occupation: [employer]- right handed Sexual orientation: Straight/Heterosexual Gender identity: Female Physical Exam ED Vital Signs: Vital Signs - 24 hr 03/09/22 08:33 03/09/22 10:00 Temperature 97 F 98.1 F Pulse Rate 66 65 Respiratory Rate 20 18 Blood Pressure 147/88 H 126/68 Pulse Oximetry 99 98 Oxygen Delivery Method Room Air Room Air BMI result Body Mass Index 33.7 Const General: cooperative, no acute distress, alert and awake Nutritional Appearance: well nourished Orientation/consciousness: patient oriented x3 Limitations: no limitations HENMT Head: Yes normal to inspection and Yes atraumatic Ears: hearing grossly normal bilaterally and external ears normal General nose exam: Normal external nose present, no nasal discharge noted and no epistaxis Face and sinus: Yes normal facial exam, No abrasion and No laceration Mouth: Normal oral and palatal mucosa present, no drooling and no muffled voice Eyes General: appearance normal, both eyes and all related structures Periorbital: periorbital findings normal Eyelids: Yes eyelids normal Conjunctivae: conjunctivae normal Pupils: Equal, round and reactive pupils present EOM: EOMs intact bilaterally Neck Neck: Yes normal visual inspection, Yes full ROM and Yes no lymphadenopathy Chest Chest palpation & inspection: normal inspection of the chest Resp Effort & Inspection: normal respiratory effort and able to speak in complete sentences Auscultation: clear to auscultation bilaterally Cardio Rate: regular rate Rhythm: regular rhythm GI Inspection: Yes normal to inspection Neuro General: patient oriented x3 and moves all extremities Cranial nerves: Yes Equal, round and reactive pupils present Cognition (Neuro): normal cognition Motor exam (neuro): 5/5 motor strength present throughout Sensory Exam: Normal double simultaneous stimulation for sensation Coordination: [id number] test normal Extrem General: Yes normal to inspection, Yes full ROM and Yes capillary refill normal Psych Appearance: grossly normal Mental Status: mental status grossly normal Affect: normal affect Attitude: cooperative Thought process: Normal thought process present Thought content: Normal thought content present Insight: Good insight present (Psych) Medical Decision Making MDM Narrative Medical decision making narrative: Patient is a 51 year old female presenting to the emergency department today with a cough. Patient's physical exam was unremarkable. Patient's blood work was unremarkable. Patient's EKG was unremarkable. Patient's chest x-ray showed no acute process. I explained my physical exam findings as well as all test results to the patient. I answered all questions asked by the patient. I stressed the importance of the patient taking her medication as prescribed. I stressed the importance of the patient following up with her primary care provider. I stressed the importance of the patient returning to the emergency department immediately if her symptoms were to worsen or if she were to develop any dizziness, shortness of breath, difficulty breathing, chest pain, blurry vision, loss of vision, nausea, vomiting, abdominal pain, fever, chills, back pain, or any other complaints. Patient verbalized agreement and understanding with this treatment plan and discharge. Differential Diagnosis Differential Diagnosis: viral illness, URI Medical Records Medical records reviewed: Yes I reviewed the patient's medical records. Lab Data Lab results reviewed: Yes I reviewed the patient's lab results. Result diagrams: 03/09/22 08:49 03/09/22 08:49 Labs: Lab Results 03/09/22 03/09/22 03/09/22 Range/Units 08:48 08:49 08:49 WBC 8.9 (4.8-10.8) X10*3/uL RBC 4.28 (4.20-5.50) X10*6/uL Hgb 11.7 L (12.0-16.0) g/dl Hct 36.9 L (37.0-47.0) % MCV 86.2 (80.0-98.0) fL MCH 27.3 (27.0-33.0) pg MCHC 31.7 (31.0-35.0) g/dl RDW 13.6 (11.0-16.0) % Plt Count 308 (160-400) X10*3/uL MPV 8.4 L (9.4-12.3) fL Immature Gran % (Auto) 0.3 (0.0-0.4) % Neut % (Auto) 48.9 (45-73) % Lymph % (Auto) 38.1 (20-40) % Spalding % (Auto) 9.2 (2-11) % Eos % (Auto) 3.1 (0-4) % Baso % (Auto) 0.4 (0-2) % Lymph # (Auto) 3.4 (1.2-4.9) X10*3/uL [place] # (Auto) 0.8 (0.1-1.2) X10*3/uL Eos # (Auto) 0.3 (0.0-0.4) X10*3/uL Baso # (Auto) 0.0 (0.0-0.2) X10*3/uL Abs Immat Gran (auto) 0.03 (0.00-0.03) X10*3/uL Absolute Neuts (auto) 4.4 (2.0-8.3) x10*3/uL Absolute Nucleated RBC 0.000 (0.0-0.012) X10*3/uL Nucleated RBC % (auto) 0.0 (0.0-0.2) /100WBC Sodium 141 (135-145) mmol/L Potassium 4.8 (3.3-5.1) mmol/L Chloride 107 (96-108) mmol/L Carbon Dioxide 27 (22-29) mmol/L Anion Gap 12 (12-20) BUN 14 (9-16) mg/dL Creatinine 0.97 (0.5-1.4) mg/dL Estim Creat Clear Calc 59.5 Estimated GFR > 60 Random Glucose 173 H (60-115) mg/dL Calcium 8.9 D (8.4-10.2) mg/dL Troponin I High Sens (<3.5-17.0) ng/L Influenza Type A (PCR) NEGATIVE (Negative) Influenza Type B (PCR) NEGATIVE (Negative) RSV RNA Qual (PCR) NEGATIVE (Negative) SARS-CoV-2 RNA (RT-PCR) NEGATIVE (Negative) 03/09/22 Range/Units 08:49 WBC (4.8-10.8) X10*3/uL RBC (4.20-5.50) X10*6/uL Hgb (12.0-16.0) g/dl Hct (37.0-47.0) % MCV (80.0-98.0) fL MCH (27.0-33.0) pg MCHC (31.0-35.0) g/dl RDW (11.0-16.0) % Plt Count (160-400) X10*3/uL MPV (9.4-12.3) fL Immature Gran % (Auto) (0.0-0.4) % Neut % (Auto) (45-73) % Lymph % (Auto) (20-40) % Spalding % (Auto) (2-11) % Eos % (Auto) (0-4) % Baso % (Auto) (0-2) % Lymph # (Auto) (1.2-4.9) X10*3/uL Spalding # (Auto) (0.1-1.2) X10*3/uL Eos # (Auto) (0.0-0.4) X10*3/uL Baso # (Auto) (0.0-0.2) X10*3/uL Abs Immat Gran (auto) (0.00-0.03) X10*3/uL Absolute Neuts (auto) (2.0-8.3) x10*3/uL Absolute Nucleated RBC (0.0-0.012) X10*3/uL Nucleated RBC % (auto) (0.0-0.2) /100WBC Sodium (135-145) mmol/L Potassium (3.3-5.1) mmol/L Chloride (96-108) mmol/L Carbon Dioxide (22-29) mmol/L Anion Gap (12-20) BUN (9-16) mg/dL Creatinine (0.5-1.4) mg/dL Estim Creat Clear Calc Estimated GFR Random Glucose (60-115) mg/dL Calcium (8.4-10.2) mg/dL Troponin I High Sens < 3.5 (<3.5-17.0) ng/L Influenza Type A (PCR) (Negative) Influenza Type B (PCR) (Negative) RSV RNA Qual (PCR) (Negative) SARS-CoV-2 RNA (RT-PCR) (Negative) Imaging Data Chest x-ray: Attestation: I personally reviewed and interpreted this imaging study as follows: My impression: No acute process. Radiologist's impression: EXAMINATION: XR CHEST CLINICAL INFORMATION: Chest pressure/discomfort. COMPARISON: None TECHNIQUE: 2 views of the chest were obtained. FINDINGS: No significant abnormality is noted involving the heart, lungs, mediastinum, or soft tissues. Lower cervical/upper thoracic anterior fixation plate and screws. No obvious evidence of hardware fracture. Status post cholecystectomy. XR/XR chest 2V IMPRESSION: Essentially unremarkable examination. Dictated By: Felix Montana Signed By: Electronically signed by Felix Montana 03/09/22 8539 ECG Data Attestation: I personally reviewed and interpreted this ECG as follows: Prior ECG tracings: available for review Interpretation: Vent. Rate: 062 BPM ? ? Atrial Rate: 062 BPM P-R Int: 160 ms? QRS Dur: 086 ms QT Int: 432 ms ? ? ? P-R-T Axes: 053 010 001 degrees QTc Int: 438 ms ? Normal sinus rhythm Normal ECG When compared with ECG of 02-DEC-2017 11:11, No significant change was found DD/ 0840 Discharge Plan Discharge Clinical Impression: Upper respiratory infection Patient Disposition: Home, Self-Care Instructions: Upper Respiratory Infection (ED) Additional Instructions: Follow up with your primary care provider. Return to the emergency department immediately if your symptoms worsen or if you develop any dizziness, shortness of breath, difficulty breathing, chest pain, blurry vision, loss of vision, nausea, vomiting, abdominal pain, fever, chills, back pain, or any other complaints. Prescriptions: New albuterol sulfate 90 mcg/actuation HFA aerosol inhaler 2 inh inhalation QID PRN (Reason: shortness of breath or wheezing) Qty: 6.7 0RF prednisone 20 mg tablet 20 mg PO DAILY 12 Days Qty: 26 0RF Rx Instructions: Take 3 tablets for 5 days THEN; Take 2 tablets for 4 days THEN; Take 1 tablet for 3 days doxycycline hyclate 100 mg tablet 100 mg PO BID 7 Days Qty: 14 0RF No Action docusate sodium 100 mg capsule 100 mg PO DAILY Qty: 30 2RF ondansetron HCl 4 mg tablet 4 mg PO Q8H PRN (Reason: for nausea/vomiting) 30 Days Qty: 90 0RF simethicone [Gas Relief (simethicone)] 80 mg tablet,chewable 80 mg PO BID-QID PRN gabapentin 400 mg capsule 400 mg PO TID amitriptyline 150 mg tablet 150 mg PO BEDTIME baclofen 10 mg tablet 10 mg PO TID propranolol 120 mg capsule,extended release 24 hr 120 mg PO DAILY atorvastatin 10 mg tablet 10 mg PO BEDTIME metformin 500 mg tablet 500 mg PO BID metformin 500 mg tablet extended release 24 hr 500 mg PO QPM cetirizine 10 mg tablet 10 mg PO DAILY Qty: 30 2RF baclofen 20 mg tablet 20 mg PO TID PRN (Reason: muscle spasm) fluconazole 150 mg tablet 150 mg PO ONCE terconazole 0.4 % cream vaginal ergocalciferol (vitamin D2) [Vitamin D2] 1,250 mcg (50,000 unit) capsule 1,250 mcg PO QWEEK clobetasol 0.05 % ointment topical BID diclofenac sodium 50 mg tablet,delayed release (DR/EC) 50 mg PO BID PRN (Reason: pain) Benadryl 2 % gel topical TID PRN pyridoxine (vitamin B6) 50 mg capsule 50 mg PO DAILY 90 Days Qty: 90 3RF loratadine 10 mg tablet 10 mg PO DAILY acetaminophen [Mapap Arthritis Pain] 650 mg tablet extended release 650 mg PO Q8H PRN (Reason: fever) pyridoxine (vitamin B6) 50 mg tablet 50 mg PO DAILY omeprazole 40 mg capsule,delayed release(DR/EC) 40 mg PO BID Qty: 180 2RF sucralfate [Carafate] 100 mg/mL suspension 10 ml PO DAILY 30 Days Qty: 300 2RF Rx Instructions: take one dose @ hs sennosides [senna] 8.6 mg tablet 17.2 mg PO BEDTIME Qty: 180 2RF Referrals: Farhana Horn DO [Primary Care Provider] - (Follow up with your primary care provider.) Stand Alone Forms: Work/School Release Interventions: ED Discharge Assessment Last Done: 03/09/22 10:51 Discharge Date/Time: 03/09/22 10:56 Print Language: Irish
== END 2022-03-09 10:56 | disposition home or self-care (01) ==
PROVIDERS: Emergency Provider Emergency Medicine Emergency Medical Services; PCP Family Medicine
DX: J06.9 Acute upper respiratory infection, unspecified (principal); R07.89 Other chest pain; R42 Dizziness and giddiness; R05.9 Cough, unspecified; Z20.822 Contact with and (suspected) exposure to COVID-19; Z79.899 Other long term (current) drug therapy
CPT/HCPCS: 0241U; 36415; 71046; 80048; 84484; 85025; 93005; 99284

== ENCOUNTER 2022-05-01 13:00 | Outpatient (REF) | payer MEDICAID, SELFPAY ==
--- NOTE | ~2022-05-01 | US_ITS ---
EXAMINATION: US RETROPERITONEAL LIMITED (RENAL ONLY) CLINICAL INFORMATION: Calculus of kidney. COMPARISON: US retroperitoneal limited (renal only) 11/08/2021 and 08/07/2016. CT abdomen and pelvis with contrast 05/18/2020. XR abdomen KUB 02/29/2016 and 02/22/2016. TECHNIQUE: Real-time imaging of the kidneys. FINDINGS: RIGHT KIDNEY: 9.7 x 4.0 x 5.3 cm (SAG x AP x TRV). The kidney is normal in size, contour, and echogenicity. Renal cortical thickness is normal. 4 mm nonobstructing mid pole calculus. No hydronephrosis of the right kidney. LEFT KIDNEY: 10.7 x 6.8 x 5.1 cm (SAG x AP x TRV). The kidney is normal in size, contour, and echogenicity. Renal cortical thickness is normal. There is mild to moderate hydronephrosis of the left kidney. This is felt to be due to an approximately 7 mm stone within the distal left ureter. US/US renal BI IMPRESSION: Mild to moderate left-sided hydronephrosis felt to be secondary to a 7 mm calculus within the distal left ureter. Further evaluation can be obtained with cross-sectional imaging as clinically indicated. Findings to be called to the ordering clinician by a Sarah Ann Radiology Physician Geophysical Data Technician.
== END 2022-05-01 13:01 | disposition home or self-care (01) ==
LOC: HO.US 13:00
DX: N20.0 Calculus of kidney (principal)
CPT/HCPCS: 76775

== ENCOUNTER 2022-05-28 15:59 | Day surgery (SDC) | payer MEDICAID, SELFPAY ==
[2022-05-28] VITALS (7 sets, daily range): BP systolic 116–135; BP diastolic 74–85; PULSE 69–80; RESP 16–17; TEMP 36.4–36.8; O2SAT 97–99; BMI 32.2
--- NOTE | ~2022-05-28 | FL_ITS ---
EXAMINATION: XR FLUOROSCOPY WITH IMAGES CLINICAL INFORMATION: Left hydronephrosis COMPARISON: Renal ultrasound 05/01/2022 TECHNIQUE: Fluoroscopy performed by Dr. Red Cunha. Fluoroscopy time: 14 seconds. Cumulative Dose: 4.51 mGy. Images: 2. FINDINGS: The lower left ureter appears normal in caliber with smooth contours. The final image demonstrates distal end left ureteral stent in position. FL/FL guidance in OR IMPRESSION: Fluoroscopy for urologic procedure.
--- NOTE | 2022-05-28 16:44 | MHC.SHP ---
Pre-Procedural Eval Section A Date of Service: 05/28/22 The patient is an INPATIENT: No Changes since office visit: No Cold of Flu in the past 2 weeks, No New Medical Problems, No Changes in Medication and No Patient answered all questions The History & Physical has been completed within 30 days and I have reviewed it.: Yes Section B Chief Complaint: kidney stone Allergies: Allergies Allergy/AdvReac Type Severity Reaction Status Date / Time Penicillins [PENICILLINS] Allergy Severe RASH Verified 05/24/22 13:22 penicillin V Allergy Unknown unknown Verified 05/24/22 13:22 Review of Systems Sugical H&P ROS: Negative: Constitution, Cardiovascular, Respiratory, Neurological, Psychiatric, Hem-Onc, Allergic/Immunologic, Gastrointestinal, Genitourinary, Musculoskeletal, Integumentary, Endocrine and Eyes/Ears/Nose/Throat Exam Surgical H&P Exam: Normal: HEENT, Normal: Heart, Normal: Lungs, Normal: Extremities, Normal: Abdomen, Normal: Skin and Normal: Neurological Plan Diagnosis/Plan: Unchanged ( distal left ureteric stone, ureteroscopy with laser lithotripsy) I have reviewed the history and physical and performed a pertinent physical examination on my patient. No changes have occurred unless specified.
--- NOTE | 2022-05-28 16:45 | HO.ANESPROP2 ---
ON LICENSE OF [facility] Active Problems Active Problems: All Active Problems (Updated 03/10/22 @ 00:01 by Mehran Harris) Renal calculi (Acute) Urine incontinence (Acute) Bacterial vaginosis (Acute) Left ankle sprain (Acute) Cubital tunnel syndrome on right (Acute) Arthritis of carpometacarpal (CMC) joint of right thumb (Acute) Numbness and tingling in right hand (Acute) IBS (irritable bowel syndrome) (Acute) GERD (gastroesophageal reflux disease) (Acute) Well woman exam (Acute) CARLOS ON CPAP Past Medical History Medical History Adrenal nodule Depression Diabetes mellitus Gastric varices GERD (gastroesophageal reflux disease) HTN (hypertension) Hyperlipemia IBS (irritable bowel syndrome) Migraine headache Renal calculi Family History Family History Father Hx of type 1 diabetes mellitus History of epilepsy Mother Family history of high blood pressure Hx of cancer of uterus Surgical History Surgical History History of esophagogastroduodenoscopy (EGD) History of surgery Hx of colonoscopy Hx of discectomy Hx of tubal ligation History of Problems with Anesthesia: No Social History Social History Household Members: Children Alcohol intake: never Patient Tobacco Use Status: Never used Tobacco Advance Directives: No Advance Directives Information Provided: Yes Current occupational status: employed 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 Sexual orientation: Straight/Heterosexual Gender identity: Female Meds Allergies Allergy/AdvReac Type Severity Reaction Status Date / Time Penicillins [PENICILLINS] Allergy Severe RASH Verified 05/24/22 13:22 penicillin V Allergy Unknown unknown Verified 05/24/22 13:22 Active Medications: Current Medications Acetaminophen (Acetaminophen 325 Mg Tablet) 650 mg PO ONCE ONE Stop: 05/28/22 16:44 Levofloxacin (Levofloxacin 500 Mg Tablet) 500 mg PO ONCE ONE Stop: 05/28/22 16:44 Home Medications Medication Instructions Recorded Confirmed Last Taken Type amitriptyline 150 mg tablet 150 mg PO BEDTIME 09/21/20 12/31/20 Unknown History baclofen 10 mg tablet 10 mg PO TID 09/21/20 12/31/20 Unknown History gabapentin 400 mg capsule 400 mg PO TID 09/21/20 12/31/20 Unknown History simethicone 80 mg chewable tablet 80 mg PO BID-QID PRN 09/21/20 12/31/20 Unknown History (Gas Relief (simethicone)) atorvastatin 10 mg tablet 10 mg PO BEDTIME 03/01/21 Unknown History metformin 500 mg tablet 500 mg PO BID 03/01/21 Unknown History propranolol 120 mg capsule,24 120 mg PO DAILY 03/01/21 Unknown History hr,extended release metformin 500 mg tablet,extended 500 mg PO QPM 08/09/21 Unknown History release 24 hr baclofen 20 mg tablet 20 mg PO TID PRN muscle spasm 10/02/21 Unknown History clobetasol 0.05 % topical ointment g topical BID 10/02/21 Unknown History diclofenac sodium 50 mg 50 mg PO BID PRN pain 10/02/21 Unknown History tablet,delayed release diphenhydramine HCl 2 % topical topical TID PRN 10/02/21 Unknown History gel (Benadryl) ergocalciferol (vitamin D2) 1,250 1,250 mcg PO QWEEK 10/02/21 Unknown History mcg (50,000 unit) capsule (Vitamin D2) fluconazole 150 mg tablet 150 mg PO ONCE 10/02/21 Unknown History terconazole 0.4 % vaginal cream g vaginal 10/02/21 Unknown History acetaminophen 650 mg 650 mg PO Q8H PRN fever 11/21/21 Unknown History tablet,extended release (Mapap Arthritis Pain) loratadine 10 mg tablet 10 mg PO DAILY 11/21/21 Unknown History pyridoxine (vitamin B6) 50 mg 50 mg PO DAILY 11/21/21 Unknown History tablet Exam Exam Date and Time: May 28, 2022 1645 Airway Mallampati Class: II TM Dist: >3cm Neck ROM: Full Loose/Missing/Broken Teeth: No Heart: RRR Lungs: CTA Assessment and Plan Assessment Anesthesia Assessment: Anesthesia Plan Discussed and Chart Reviewed Final Anesthetic Review History of Problems with Anesthesia: No NPO: Yes ASA Class: III Final Preanesthetic Review: Meds/Allgs Chart Reviewed, Consent Obtained/Reviewed and Anes Risks/Benef Reviewed Patient Risk: Intermediate Procedure Risk: Low Anesthetic Plan Anesthetic Plan: GA Disposition: Standard PACU
--- NOTE | 2022-05-28 17:01 | MHC.SHP ---
Pre-Procedural Eval Section A Date of Service: 05/28/22 The patient is an INPATIENT: No Changes since office visit: No Cold of Flu in the past 2 weeks, No New Medical Problems, No Changes in Medication and No Patient answered all questions The History & Physical has been completed within 30 days and I have reviewed it.: Yes Section B Chief Complaint: kidney stone Details of Present Illness: distal left ureteric stone Allergies: Allergies Allergy/AdvReac Type Severity Reaction Status Date / Time Penicillins [PENICILLINS] Allergy Severe RASH Verified 05/24/22 13:22 penicillin V Allergy Unknown unknown Verified 05/24/22 13:22 Review of Systems Sugical H&P ROS: Negative: Constitution, Cardiovascular, Respiratory, Neurological, Psychiatric, Hem-Onc, Allergic/Immunologic, Gastrointestinal, Genitourinary, Musculoskeletal, Integumentary, Endocrine and Eyes/Ears/Nose/Throat Exam Surgical H&P Exam: Normal: HEENT, Normal: Heart, Normal: Lungs, Normal: Extremities, Normal: Abdomen, Normal: Skin and Normal: Neurological Plan Diagnosis/Plan: Unchanged ( cystoscopy, left retrograde, left ureteroscopy with laser lithotripsy stent placement) I have reviewed the history and physical and performed a pertinent physical examination on my patient. No changes have occurred unless specified.
[2022-05-28] MEDS: levoFLOXacin 500 MG TABLET PO (17:20)
--- NOTE | 2022-05-28 17:50 | P.OP_ITS ---
Operative Note Operative Note Date of Service: 05/28/22 Narrative: PreOperative Diagnosis: distal ureteric stone left side Post Operative Diagnosis: distal ureteric inflammation Procedure: - cystoscopy, left retrograde - left dilatation of ureteric orifice under fluoroscopy - left ureteroscopy - left stent placement Surgeon: Dr Red Cunha Anesthesia: General Indications for procedure: question of distal left stone on ultrasound with proximal hydroureteronephrosis 7 mm unlikely to pass Procedure: After informed consent was verified patient was brought to the operating placed in supine position. Anesthesia was administered per protocol. Patient was placed in modified dorsal lithotomy position and prepped and draped in a sterile fashion. Safety pause time-out and side of surgery confirmed. Antibiotics confirmed. A 22 Turkmen cystoscope was inserted per urethra. Bladder was normal in its entirety. Both ureteric orifices were in normal position. The left ureteric orifice was cannulated and a retrograde examination was performed. no filling defects seen. Mild proximal ureteral nephrosis . A Sensor guidewire was placed up to the level of the renal pelvis under fluoroscopy. The rigid cystoscope was removed. A [place] dilator was placed over the Sensor guidewire and used to dilate the ureteric orifice under fluoroscopy. The dilator was removed. The semi rigid ureteral scope was placed alongside the Sensor guidewire. no stone encountered. Inflammation seen in distal portion of ureter consistent with prior stone passage. A 6 Turkmen by Twenty-two cm double-J stent was placed into the renal pelvis and bladder under a combination of fluoroscopy and direct visualization. The bladder was emptied. The patient tolerated the procedure well and was extubated in the operating room, and transferred in stable condition to the recovery area. Pathology: none Drains: stent is above
[2022-05-28] MEDS: Phenazopyridine HCL 100 MG TABLET PO (18:20)
[2022-05-28] MEDS: Acetaminophen 325 MG TABLET 650 MG PO (18:21)
[2022-05-28 21:02] LABS: Glucose, Whole Blood 89 mg/dL (60-115)
== END 2022-05-28 18:45 | disposition home or self-care (01) ==
PROVIDERS: PCP Family Medicine; Visit Provider Urology
PROC: (CPT 52351; principal; 2022-05-28 15:10)
DX: N20.0 Calculus of kidney (principal); Z87.442 Personal history of urinary calculi; I10 Essential (primary) hypertension; E11.9 Type 2 diabetes mellitus without complications; K58.9 Irritable bowel syndrome, unspecified; Z88.0 Allergy status to penicillin
CPT/HCPCS: 52351; 52332; 82947; C1758; C1769; C2617; J1956; J2250; J2405; J3010; Q9965

== ENCOUNTER 2022-06-04 10:42 | Emergency (ER) | payer MEDICAID, SELFPAY | END 2022-06-04 16:12 | disposition left against medical advice (07) | PROVIDERS: Emergency Provider Emergency Medicine; PCP Family Medicine | DX: M79.605 Pain in left leg (principal) ==

== ENCOUNTER → 2022-06-06 12:45 | Outpatient (BNVA) | payer MEDICAID, SELFPAY | PROVIDERS: PCP Family Medicine; Visit Provider Urology | DX: Z48.816 Encounter for surgical aftercare following surgery on the genitourinary system (principal); N20.0 Calculus of kidney | CPT/HCPCS: 52310; 99212 ==

== ENCOUNTER → 2022-07-26 08:55 | Outpatient (BNVA) | payer MEDICAID, SELFPAY | PROVIDERS: PCP Family Medicine; Visit Provider Nurse Practitioner Family | DX: K58.1 Irritable bowel syndrome with constipation (principal); K21.9 Gastro-esophageal reflux disease without esophagitis; K59.04 Chronic idiopathic constipation | CPT/HCPCS: 99212 ==

== ENCOUNTER 2022-08-14 10:06 | Outpatient (REF) | payer MEDICAID, SELFPAY ==
--- NOTE | ~2022-08-14 | US_ITS ---
EXAMINATION: US RETROPERITONEAL LIMITED (RENAL ONLY) CLINICAL INFORMATION: Calculus of kidney. COMPARISON: Renal ultrasound 05/01/2022 and 11/08/2021. CT abdomen and pelvis 05/18/2020. TECHNIQUE: Real-time imaging of the kidneys. FINDINGS: RIGHT KIDNEY: 10.3 x 5.4 x 3.8 cm (SAG x AP x TRV). The kidney is normal in size, contour, and echogenicity. Renal cortical thickness is normal. No focal parenchymal lesions or hydronephrosis. There is an echogenic stone measuring 0.3 x 0.4 x 0.5 cm. LEFT KIDNEY: 10.5 x 6.4 x 4.2 cm (SAG x AP x TRV). The kidney is normal in size, contour, and echogenicity. Renal cortical thickness is normal. No calculi or focal parenchymal lesions. No hydronephrosis. US/US renal BI IMPRESSION: Small nonobstructive echogenic stone midpole right kidney.
== END 2022-08-14 10:07 | disposition home or self-care (01) ==
LOC: HO.US 10:06
DX: N20.0 Calculus of kidney (principal)
CPT/HCPCS: 76775

== ENCOUNTER 2022-09-07 09:55 | Outpatient (REF) | payer MEDICAID, SELFPAY ==
--- NOTE | ~2022-09-07 | MM_ITS ---
EXAMINATION: MM SCREENING DIGITAL BREAST TOMOSYNTHESIS, BILATERAL CLINICAL INFORMATION: Screening. Asymptomatic. The lifetime risk of breast cancer based on the Tyrer-Cuzick Model is 6%. COMPARISON: Mammography: 09/05/2021, 08/29/2020, 03/21/2018 TECHNIQUE: Digital breast tomosynthesis is performed in both the craniocaudal and mediolateral oblique views along with computer-aided detection (CAD). Synthesized 2D images are generated from the tomosynthesis. FINDINGS: There are scattered areas of fibroglandular density (ACR BI-RADS breast composition Category b). There are no significant masses, abnormal calcifications, or other abnormalities. Parenchymal pattern is similar to prior studies. There is no developing density or architectural abnormality. The axilla and skin contours are unremarkable. No significant changes. MM/MM tomosynthesis screening BI IMPRESSION: No mammographic evidence of malignancy. ASSESSMENT: BI-RADS 1: Negative RECOMMENDATION: Routine annual mammography screening. This patient's information was entered into a reminder system with a target due date for their next mammogram.
== END 2022-09-07 09:56 | disposition home or self-care (01) ==
LOC: HO.MAMMO 09:55
PROVIDERS: PCP Family Medicine; Visit Provider Family Medicine
DX: Z12.31 Encounter for screening mammogram for malignant neoplasm of breast (principal)
CPT/HCPCS: 77063; 77067

== ENCOUNTER → 2022-09-26 13:14 | Outpatient (BNVA) | payer MEDICAID, SELFPAY | PROVIDERS: PCP Family Medicine; Referring Provider Family Medicine; Visit Provider Internal Medicine | DX: R07.89 Other chest pain (principal) | CPT/HCPCS: 93005; 99202 ==

== ENCOUNTER → 2023-01-23 09:39 | Outpatient (BNVA) | payer MEDICAID, SELFPAY | PROVIDERS: PCP Family Medicine; Visit Provider Nurse Practitioner Family | DX: K21.9 Gastro-esophageal reflux disease without esophagitis (principal); K58.1 Irritable bowel syndrome with constipation; K59.04 Chronic idiopathic constipation | CPT/HCPCS: 99212 ==

== ENCOUNTER 2023-02-05 12:53 | Outpatient (REF) | payer MEDICAID, SELFPAY ==
--- NOTE | ~2023-02-05 | US_ITS ---
EXAMINATION: US RETROPERITONEAL LIMITED (RENAL ONLY) CLINICAL INFORMATION: Calculus of kidney. COMPARISON: Renal ultrasound 08/14/2022 and 05/01/2022. CT abdomen and pelvis 05/18/2020. TECHNIQUE: Real-time imaging of the kidneys. FINDINGS: RIGHT KIDNEY: 10.3 x 4.8 x 6.1 cm (SAG x AP x TRV). The kidney is normal in size, contour, and echogenicity. Renal cortical thickness is normal. No focal parenchymal lesions or hydronephrosis. There is a midpole 0.4 cm calculus identified. LEFT KIDNEY: 10.3 x 6.6 x 5.5 cm (SAG x AP x TRV). The kidney is normal in size, contour, and echogenicity. Renal cortical thickness is normal. No calculi or focal parenchymal lesions. No hydronephrosis. US/US renal BI IMPRESSION: Nonobstructing right midpole 0.4 cm renal calculus. No left-sided renal calculi. No hydronephrosis.
== END 2023-02-05 12:54 | disposition home or self-care (01) ==
LOC: HO.US 12:53
PROVIDERS: PCP Family Medicine; Visit Provider Urology
DX: N20.0 Calculus of kidney (principal)
CPT/HCPCS: 76775

== ENCOUNTER → 2023-02-26 14:38 | Outpatient (BNVA) | payer MEDICAID, SELFPAY | PROVIDERS: PCP Family Medicine; Visit Provider Urology | DX: N20.0 Calculus of kidney (principal) | CPT/HCPCS: 51798; 99212 ==

== ENCOUNTER 2023-04-26 09:45 | Outpatient (AMB) | payer MEDICAID, SELFPAY ==
[2023-04-26 09:56] VITALS: BMI 32.7
--- NOTE | 2023-04-26 09:56 | A.OFFVIS_ITS ---
Intake Vital Signs 04/26/23 09:56 Height 5 ft Weight 167 lb 8.821 oz BMI 32.7 Blood Pressure Location Lt brachial Position Sitting Intake Visit Reasons: 3 month follow up Intake Note: Tri presents in office as a est.patient for a 3month f/u for Chronic idiopathic constipation PT CC: pt reports having CIC, bloating , abdominal pain pt denies any other GI Issues Dictating Machine Mechanic Required: Yes Dictating Machine Mechanic Language: Telugu Accompanied by: Self / Same As Patient Allergies Penicillins [PENICILLINS] Allergy (Severe, Verified 04/26/23 09:57) RASH HPI 3 month follow up HPI Details LAST VISIT GERD (gastroesophageal reflux disease) Continue pantoprazole half an hour before breakfast. I will restart patient on sucralfate again. Patient can take that at bedtime. Discussed with patient avoiding dietary triggers and late night snacking. Staying upright her med I will 3 hours after meals discussed with patient. IBS (irritable bowel syndrome) Continue low FODMAP diet. List of food recommended as well as list of food to avoid given to patient. Chronic idiopathic constipation Patient reports the Senokot no longer is helping her. I will start her on Linzess 145 mcg to start with. Patient will call me in 2 weeks to see if that is going to be helpful. We may need to increase that dose. Patient was encouraged to drink plenty fluids and increase activity to promote better bowel motility. I will see her in 3 months, sooner on as needed basis. Patient is agreeable to this plan and verbalizes understanding of instructions. She was given the opportunity to ask questions and all questions answered. ? Thank you for allowing me to participate in her care Plan Medications New linaclotide (Linzess) 145 mcg PO DAILY 30 caps 2RF sucralfate 1 g PO BEDTIME 30 tabs 4RF R19.7 TODAY'S VISIT: Patient reports she started taking Linzess in the morning and had loose stools afterwards. Patient started taking it at night time. She continues to have loose stools throughout the day. Occasional postprandial abdominal bloating. Patient reports that pantoprazole works for her in the morning and since she started taking sucralfate it with time she no longer has acid reflux or dyspepsia. Patient denies dysphagia or odynophagia. Reports occasional blood after bowel movement when wiping. No melena, hematochezia, unintentional weight loss or ribbon like stools PFSH Medical History Adrenal nodule Depression Diabetes mellitus Gastric varices GERD (gastroesophageal reflux disease) HTN (hypertension) Hyperlipemia IBS (irritable bowel syndrome) Migraine headache Renal calculi Surgical History History of esophagogastroduodenoscopy (EGD) History of surgery Hx of colonoscopy Hx of discectomy Hx of tubal ligation Family History Father Hx of type 1 diabetes mellitus History of epilepsy Mother Family history of high blood pressure Hx of cancer of uterus Social History Household Members: Children Alcohol intake: never Patient Tobacco Use Status: Never used Tobacco Advance Directives: No Advance Directives Information Provided: Yes Patient : No Current occupational status: employed 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 Sexual orientation: Straight/Heterosexual Gender identity: Female Female Reproductive History Menstrual Age of Menarche: 10 Review of Systems Const Denies weight gain and Denies weight loss ENT Reports no additional complaints, Denies dysphagia and Denies odynophagia Card Reports no additional complaints Resp Reports no additional complaints GI Denies abdominal pain, Denies belching, Denies melena, Denies bloating, Denies change in bowel habits, Reports constipation, Denies dysphagia, Denies excessive flatus, Denies dyspepsia, Denies heartburn, Denies diarrhea, Reports loose stools, Reports nausea, Denies odynophagia and Denies vomiting Reports no additional complaints Musc Reports no additional complaints Neuro Reports no additional complaints Psych Reports no additional complaints Endo Reports no additional complaints Physical Exam Vital Signs: BMI result Body Mass Index 32.7 Const General: healthy appearing, no acute distress and well developed Nutritional Appearance: obese Orientation/consciousness: patient oriented x3 HEENT Head: Yes normal to inspection, Yes normocephalic and Yes atraumatic Face and sinus: Yes normal facial exam Mouth: Normal oral and palatal mucosa present Throat: Yes posterior oropharynx normal, Yes tonsils normal and Yes uvula midline Eyes General: appearance normal, both eyes and all related structures Neck Neck: Yes normal visual inspection, Yes full ROM and Yes trachea midline Thyroid: Thyroid normal Resp Effort & Inspection: normal respiratory effort, able to speak in complete se ntences, no tracheal deviation and symmetric chest movement Auscultation: clear to auscultation bilaterally Cardio Rate: regular rate Heart sounds: S1 normal heart sound present and S2 normal heart sound present GI Inspection: Yes normal to inspection and No distended Palpation (GI): Soft to palpation, not firm, nontender and No hepatosplenomegaly present Auscultation: normal bowel sounds General: Yes no CVA tenderness Back/Spine/Pelvis Back: no CVA tenderness Skin General skin exam: elasticity normal, turgor normal and dry skin Neuro General: patient oriented x3 Psych Appearance: grossly normal Mental Status: mental status grossly normal Speech and movement: Normal speech and movement present Assessment & Plan Assessment & Plan (1) GERD (gastroesophageal reflux disease): Code(s): K21.9 - Gastro-esophageal reflux disease without esophagitis Qualifiers: Esophagitis presence: without esophagitis Qualified Code(s): K21.9 - Gastro-esophageal reflux disease without esophagitis Plan: Continue pantoprazole in the morning half an hour before breakfast and sucralfate at bedtime. Patient was encouraged to avoid dietary triggers and late night snacking. Staying upright for minimum 3 hours after meals discussed with patient. (2) IBS (irritable bowel syndrome): Code(s): K58.9 - Irritable bowel syndrome without diarrhea Qualifiers: Irritable bowel syndrome type: with constipation Qualified Code(s): K58.1 - Irritable bowel syndrome with constipation Plan: Continue Linzess. Patient can take Citrucel to help her bulk her stools. Continue avoiding dietary triggers. Low FODMAP diet discussed with patient (3) Chronic idiopathic constipation: Code(s): K59.04 - Chronic idiopathic constipation Plan: Continue Linzess. Patient was encouraged to increase fluid intake and activity to promote better bowel motility. I will see her in 6 months, sooner on as needed basis. Patient is agreeable to this plan and verbalizes understanding of instructions. She was given the opportunity to ask questions and all questions answered. Thank you for allowing me to participate in her care Medications: New methylcellulose (laxative) (Citrucel) take it with full glass of water 500 mg PO DAILY 90 tabs 2RF K59.00 - Constipation, unspecified simethicone 125 mg PO BID-QID PRN 120 caps 3RF abdominal distention hydrocortisone 2.5% (Proctosol HC) 1 appl [place] BID-QID PRN 30 grams 2RF hemorrhoids K64.9 - Unspecified hemorrhoids Refilled ondansetron HCl 4 mg PO Q8H PRN 20 tabs 1RF for nausea/vomiting Coding Level of Care Code Est Pt Level 3 (20477) Diagnoses Gastroesophageal reflux disease without esophagitis K21.9 Esophagitis presence: without esophagitis Irritable bowel syndrome with constipation K58.1 Irritable bowel syndrome type: with constipation Chronic idiopathic constipation K59.04 Time Spent (min) 30 Comment 20 minutes spent with patient and additional 10 minutes spent reviewing her records
== END 2023-04-26 10:16 | disposition home or self-care (01) ==
PROVIDERS: PCP Family Medicine; Visit Provider Nurse Practitioner Family
DX: K21.9 Gastro-esophageal reflux disease without esophagitis (principal); K58.1 Irritable bowel syndrome with constipation; K59.04 Chronic idiopathic constipation
CPT/HCPCS: 99213

== ENCOUNTER → 2023-04-26 09:45 | Outpatient (BNVA) | payer OTHER, SELFPAY | PROVIDERS: PCP Family Medicine; Visit Provider Nurse Practitioner Family | DX: K59.04 Chronic idiopathic constipation (principal); K21.9 Gastro-esophageal reflux disease without esophagitis; K58.1 Irritable bowel syndrome with constipation | CPT/HCPCS: 99212 ==

== ENCOUNTER 2023-05-17 22:54 | Emergency (ER) | payer OTHER, SELFPAY ==
--- NOTE | ~2023-05-17 | XR_ITS ---
EXAMINATION: XR ANKLE, RIGHT CLINICAL INFORMATION: Question sprain ankle status post fall. COMPARISON: None available. TECHNIQUE: AP, lateral, and mortise views of the right ankle. FINDINGS: Soft tissue swelling is present at the ankle and dorsal aspect of the hindfoot and midfoot. Ankle mortise is symmetric. Additionally, a subtle avulsion fracture is suspected at the lateral margin of the anterior process of the calcaneus. No additional fractures are identified. Bone mineralization is normal. XR/XR ankle RT min 3V IMPRESSION: 1. Subtle avulsion fractures of the dorsal margin of the talus and the lateral margin of the anterior process of the calcaneus, most consistent with a midtarsal sprain pattern of avulsion injuries. No additional fractures are identified. 2. Soft tissue swelling at the ankle.
[2023-05-17 23:00] VITALS: BP 144/85; PULSE 79; RESP 18; TEMP 37.2; O2SAT 98; BMI 32.2
--- NOTE | 2023-05-18 02:45 | ED_ITS ---
HPI - Fall General Chief Complaint: Fall Stated Complaint: Fall Time Seen by Provider: 05/18/23 02:44 Source: patient Mode of arrival: ambulatory Limitations: no limitations History of Present Illness HPI Narrative: Patient fell at home around 2230 missed a step and fell backwards came for right ankle pain and swelling no loss of consciousness no head injury patient had x- ray done which showed avulsion fracture talus Related Data Home Medications Medication Instructions Recorded Confirmed amitriptyline 150 mg tablet 150 mg PO BEDTIME 09/21/20 02/26/23 gabapentin 400 mg capsule 400 mg PO TID 09/21/20 02/26/23 atorvastatin 10 mg tablet 10 mg PO BEDTIME 03/01/21 02/26/23 propranolol 120 mg capsule,24 120 mg PO DAILY 03/01/21 02/26/23 hr,extended release metformin 500 mg tablet,extended 500 mg PO QPM 08/09/21 02/26/23 release 24 hr baclofen 20 mg tablet 20 mg PO TID PRN muscle spasm 10/02/21 02/26/23 clobetasol 0.05 % topical ointment g topical BID 10/02/21 02/26/23 diclofenac sodium 50 mg 50 mg PO BID PRN pain 10/02/21 02/26/23 tablet,delayed release diphenhydramine HCl 2 % topical topical TID PRN 10/02/21 02/26/23 gel (Benadryl) ergocalciferol (vitamin D2) 1,250 1,250 mcg PO QWEEK 10/02/21 02/26/23 mcg (50,000 unit) capsule (Vitamin D2) acetaminophen 650 mg 650 mg PO Q8H PRN fever 11/21/21 02/26/23 tablet,extended release (Mapap Arthritis Pain) loratadine 10 mg tablet 10 mg PO DAILY 11/21/21 02/26/23 pantoprazole 40 mg tablet,delayed 40 mg PO DAILY 07/26/22 02/26/23 release sertraline 50 mg tablet 50 mg PO DAILY 08/07/22 02/26/23 Previous Rx's Medication Instructions Recorded cetirizine 10 mg tablet 10 mg PO DAILY #30 tabs 10/10/21 albuterol sulfate 90 mcg/actuation 2 inh inhalation QID PRN shortness 03/09/22 aerosol inhaler of breath or wheezing #6.7 grams sucralfate 1 gram tablet 1 g PO BEDTIME #30 tabs 01/23/23 pyridoxine (vitamin B6) 50 mg 50 mg PO DAILY 90 days #90 tabs 02/26/23 tablet hydrocortisone 2.5 % topical cream 1 appl [place] BID-QID PRN hemorrhoids 04/26/23 with perineal applicator #30 grams (Proctosol HC) methylcellulose (laxative) 500 mg 500 mg PO DAILY #90 tabs 04/26/23 tablet (Citrucel) ondansetron HCl 4 mg tablet 4 mg PO Q8H PRN for 04/26/23 nausea/vomiting #20 tabs simethicone 125 mg capsule 125 mg PO BID-QID PRN abdominal 04/26/23 distention #120 caps linaclotide 145 mcg capsule 145 mcg PO DAILY #30 caps 04/30/23 (Linzess) oxycodone-acetaminophen 5 mg-325 1 tab PO Q6H PRN pain #20 tabs 05/18/23 mg tablet (Percocet) Allergies Allergy/AdvReac Type Severity Reaction Status Date / Time Penicillins [PENICILLINS] Allergy Severe RASH Verified 04/26/23 09:57 Review of Systems 2 Review of Systems: Yes all other systems are reviewed and are negative PMFSH Past Medical History Medical History Adrenal nodule Depression Diabetes mellitus Gastric varices GERD (gastroesophageal reflux disease) HTN (hypertension) Hyperlipemia IBS (irritable bowel syndrome) Migraine headache Renal calculi Surgical History History of esophagogastroduodenoscopy (EGD) History of surgery Hx of colonoscopy Hx of discectomy Hx of tubal ligation Family History Family History Father Hx of type 1 diabetes mellitus History of epilepsy Mother Family history of high blood pressure Hx of cancer of uterus Social History Social History Household Members: Children Alcohol intake: never Patient Tobacco Use Status: Never used Tobacco Advance Directives: No Advance Directives Information Provided: Yes Patient : No Current occupational status: employed 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 Diffuse tenderness and swelling neurovascular intact Medications Administered Discontinued Medications Generic Name Dose Route Start Last Admin Trade Name Freq PRN Reason Stop Dose Admin Morphine Sulfate 15 mg 05/18/23 03:38 05/18/23 03:57 Morphine Sulfate Immed Release 15 Mg Tablet PO 05/18/23 03:39 15 mg ONCE ONE Administration Medical Decision Making Medical Decision Making [facility] Narrative: Patient with severe right ankle sprain with avulsion fracture walking boot was applied and crutches were given advised to follow up with Ortho Radiology Impression Discussion of test interpretation with radiology: I have reviewed the radiologist's reading. Discharge Plan Discharge Clinical Impression: Right ankle sprain, Avulsion fracture of ankle Patient Disposition: Home, Self-Care Instructions: Ankle Fracture (ED), Ankle Sprain (ED) Additional Instructions: Walk With the walker and use crutches for partial weight-bearing Pain medication as prescribed Follow with PCP/Orthopedics if not better Prescriptions: New oxycodone-acetaminophen [Percocet] 5-325 mg tablet 1 tab PO Q6H PRN (Reason: pain) Qty: 20 0RF Rx Instructions: Partial Fill upon patient request. No Action Linzess 145 mcg capsule 145 mcg PO DAILY Qty: 30 2RF albuterol sulfate 90 mcg/actuation HFA aerosol inhaler 2 inh inhalation QID PRN (Reason: shortness of breath or wheezing) Qty: 6.7 0RF gabapentin 400 mg capsule 400 mg PO TID amitriptyline 150 mg tablet 150 mg PO BEDTIME propranolol 120 mg capsule,extended release 24 hr 120 mg PO DAILY atorvastatin 10 mg tablet 10 mg PO BEDTIME metformin 500 mg tablet extended release 24 hr 500 mg PO QPM cetirizine 10 mg tablet 10 mg PO DAILY Qty: 30 2RF baclofen 20 mg tablet 20 mg PO TID PRN (Reason: muscle spasm) ergocalciferol (vitamin D2) [Vitamin D2] 1,250 mcg (50,000 unit) capsule 1,250 mcg PO QWEEK clobetasol 0.05 % ointment topical BID diclofenac sodium 50 mg tablet,delayed release (DR/EC) 50 mg PO BID PRN (Reason: pain) Benadryl 2 % gel topical TID PRN sucralfate 1 gram tablet 1 g PO BEDTIME Qty: 30 4RF sertraline 50 mg tablet 50 mg PO DAILY loratadine 10 mg tablet 10 mg PO DAILY acetaminophen [Mapap Arthritis Pain] 650 mg tablet extended release 650 mg PO Q8H PRN (Reason: fever) pantoprazole 40 mg tablet,delayed release (DR/EC) 40 mg PO DAILY pyridoxine (vitamin B6) 50 mg tablet 50 mg PO DAILY 90 Days Qty: 90 3RF ondansetron HCl 4 mg tablet 4 mg PO Q8H PRN (Reason: for nausea/vomiting) Qty: 20 1RF Citrucel 500 mg tablet 500 mg PO DAILY Qty: 90 2RF Rx Instructions: take it with full glass of water simethicone 125 mg capsule 125 mg PO BID-QID PRN (Reason: abdominal distention) Qty: 120 3RF hydrocortisone [Proctosol HC] 2.5 % cream with perineal applicator 1 appl [place] BID-QID PRN (Reason: hemorrhoids) Qty: 30 2RF Referrals: Seferino Troy MD [Physician] - 1 week Interventions: ED Discharge Assessment Last Done: 05/18/23 04:19 Discharge Date/Time: 05/18/23 04:20
[2023-05-18 03:24] VITALS: BP 139/73; PULSE 86; RESP 16; TEMP 37.1; O2SAT 97
[2023-05-18] MEDS: Morphine Sulfate Immed Release 15 MG TABLET PO (03:57)
--- NOTE | 2023-05-18 03:57 | MHC.EDTECH ---
This tech applied a walking boot to right foot,and taught patient how to use crutches. Patient tolerated very well. RN aware
== END 2023-05-18 04:20 | disposition home or self-care (01) ==
PROVIDERS: Emergency Provider Internal Medicine; PCP Family Medicine
DX: S92.151A Displaced avulsion fracture (chip fracture) of right talus, initial encounter for closed fracture (principal); S93.401A Sprain of unspecified ligament of right ankle, initial encounter; W10.8XXA Fall (on) (from) other stairs and steps, initial encounter; I10 Essential (primary) hypertension; E78.5 Hyperlipidemia, unspecified; Z79.84 Long term (current) use of oral hypoglycemic drugs; Z79.899 Other long term (current) drug therapy; Y93.9 Activity, unspecified; Y92.9 Unspecified place or not applicable; Y99.9 Unspecified external cause status
CPT/HCPCS: 73610; 99283; 99285

== ENCOUNTER 2023-05-21 13:25 | Outpatient (REF) | payer OTHER, SELFPAY ==
--- NOTE | ~2023-05-21 | XR_ITS ---
STUDY: Right shoulder, right elbow, right wrist and right hip INDICATION: Pain after fall 5 days ago right-sided pain and swelling right shoulder, right elbow, right wrist and right hip COMPARISON: 02/26/2021 right wrist. TECHNIQUE: 4 view right shoulder, 4 view right elbow, 5 view right wrist, 2 view right hip FINDINGS: Right shoulder: No fracture or dislocation. Acromioclavicular and glenohumeral joints are maintained. Visualized right ribs and lung are unremarkable. Partial visualization of lower cervical surgical hardware. Right elbow: No fracture or dislocation. Alignment and articulations are maintained. Calcification identified adjacent to the lateral condyle. Soft tissues are unremarkable. Right breast: Progressive first metacarpocarpal sclerosis, spurring, joint space narrowing and hypertrophic bony changes. Mild radiocarpal narrowing. No acute bony pathology recognized. Right hip: No fracture or dislocation. No significant hip joint narrowing. Alignment and articulations are maintained. XR/XR wrist RT min 3V IMPRESSION: No acute posttraumatic bony pathology right shoulder, right elbow, right wrist and right hip. Question right elbow lateral epicondylitis. Progressive osteoarthritis right wrist.
--- NOTE | ~2023-05-21 | XR_ITS ---
STUDY: Right shoulder, right elbow, right wrist and right hip INDICATION: Pain after fall 5 days ago right-sided pain and swelling right shoulder, right elbow, right wrist and right hip COMPARISON: 02/26/2021 right wrist. TECHNIQUE: 4 view right shoulder, 4 view right elbow, 5 view right wrist, 2 view right hip FINDINGS: Right shoulder: No fracture or dislocation. Acromioclavicular and glenohumeral joints are maintained. Visualized right ribs and lung are unremarkable. Partial visualization of lower cervical surgical hardware. Right elbow: No fracture or dislocation. Alignment and articulations are maintained. Calcification identified adjacent to the lateral condyle. Soft tissues are unremarkable. Right breast: Progressive first metacarpocarpal sclerosis, spurring, joint space narrowing and hypertrophic bony changes. Mild radiocarpal narrowing. No acute bony pathology recognized. Right hip: No fracture or dislocation. No significant hip joint narrowing. Alignment and articulations are maintained. XR/XR shoulder RT min 2V IMPRESSION: No acute posttraumatic bony pathology right shoulder, right elbow, right wrist and right hip. Question right elbow lateral epicondylitis. Progressive osteoarthritis right wrist.
--- NOTE | ~2023-05-21 | XR_ITS ---
STUDY: Right shoulder, right elbow, right wrist and right hip INDICATION: Pain after fall 5 days ago right-sided pain and swelling right shoulder, right elbow, right wrist and right hip COMPARISON: 02/26/2021 right wrist. TECHNIQUE: 4 view right shoulder, 4 view right elbow, 5 view right wrist, 2 view right hip FINDINGS: Right shoulder: No fracture or dislocation. Acromioclavicular and glenohumeral joints are maintained. Visualized right ribs and lung are unremarkable. Partial visualization of lower cervical surgical hardware. Right elbow: No fracture or dislocation. Alignment and articulations are maintained. Calcification identified adjacent to the lateral condyle. Soft tissues are unremarkable. Right breast: Progressive first metacarpocarpal sclerosis, spurring, joint space narrowing and hypertrophic bony changes. Mild radiocarpal narrowing. No acute bony pathology recognized. Right hip: No fracture or dislocation. No significant hip joint narrowing. Alignment and articulations are maintained. XR/XR elbow RT min 3V IMPRESSION: No acute posttraumatic bony pathology right shoulder, right elbow, right wrist and right hip. Question right elbow lateral epicondylitis. Progressive osteoarthritis right wrist.
--- NOTE | ~2023-05-21 | XR_ITS ---
STUDY: Right shoulder, right elbow, right wrist and right hip INDICATION: Pain after fall 5 days ago right-sided pain and swelling right shoulder, right elbow, right wrist and right hip COMPARISON: 02/26/2021 right wrist. TECHNIQUE: 4 view right shoulder, 4 view right elbow, 5 view right wrist, 2 view right hip FINDINGS: Right shoulder: No fracture or dislocation. Acromioclavicular and glenohumeral joints are maintained. Visualized right ribs and lung are unremarkable. Partial visualization of lower cervical surgical hardware. Right elbow: No fracture or dislocation. Alignment and articulations are maintained. Calcification identified adjacent to the lateral condyle. Soft tissues are unremarkable. Right breast: Progressive first metacarpocarpal sclerosis, spurring, joint space narrowing and hypertrophic bony changes. Mild radiocarpal narrowing. No acute bony pathology recognized. Right hip: No fracture or dislocation. No significant hip joint narrowing. Alignment and articulations are maintained. XR/XR hip RT min 2V IMPRESSION: No acute posttraumatic bony pathology right shoulder, right elbow, right wrist and right hip. Question right elbow lateral epicondylitis. Progressive osteoarthritis right wrist.
== END 2023-05-21 13:26 | disposition home or self-care (01) ==
LOC: HO.HHCX 13:25
PROVIDERS: Visit Provider Family Medicine
DX: M79.601 Pain in right arm (principal); M25.511 Pain in right shoulder; M25.551 Pain in right hip; M25.521 Pain in right elbow; M25.531 Pain in right wrist; Z91.81 History of falling
CPT/HCPCS: 73030; 73080; 73110; 73502

== ENCOUNTER 2023-05-23 10:39 | Outpatient (AMB) | payer OTHER, MEDICAID, SELFPAY ==
[2023-05-23 10:42] VITALS: BMI 32.2
--- NOTE | 2023-05-23 10:42 | A.OFFVIS_ITS ---
Intake Vital Signs 05/23/23 10:42 Height 5 ft Weight 165 lb BMI 32.2 Intake Visit Reasons: FC-Rt Avulsion Ankle fx Intake Note: Tri a 52 year old female who presents today for an ER follow up of right ankle avulsion fx, DOI 05/17/23. Patient reports she missed a step and fell backwards causing right ankle pain and swelling. She presented to [facility] ED same day where xrays were taken and was placed in a boot. Currently pain is 7 out of 10 with pain medication that was prescribed by PCP. Her pain is located on the top of foot that radiates into her lateral side of ankle as well as numbness and tingling. Allergies Penicillins [PENICILLINS] Allergy (Severe, Verified 05/23/23 10:47) RASH HPI FC-Rt Avulsion Ankle fx HPI Details 52-year-old female who presents to the [facility] today for an ER follow-up of right ankle injury s/p missing a step and falling backwards. She was seen at ED the same day where x-rays were performed and she was placed in a boot which provided her relief. She states she has pain, numbness and tingling on the top of her foot which radiates into the lateral aspect of her ankle. She rates the pain as 7 on the scale of 0-10 with the pain medication prescribed by her PCP. [facility] Medical History Adrenal nodule Depression Diabetes mellitus Gastric varices GERD (gastroesophageal reflux disease) HTN (hypertension) Hyperlipemia IBS (irritable bowel syndrome) Migraine headache Renal calculi Surgical History History of surgery History of esophagogastroduodenoscopy (EGD) Hx of colonoscopy Hx of tubal ligation Hx of discectomy Family History Father Hx of type 1 diabetes mellitus History of epilepsy Mother Family history of high blood pressure Hx of cancer of uterus Social History Household Members: Children Alcohol intake: never Patient Tobacco Use Status: Never used Tobacco Current occupational status: employed 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 No pain along the syndesmosis or anterior tibia. No laxity, NVI. Results Reviewed Results Reviewed: xrays of the right foot obtained on 05/17/23 in the ED show an avulsion along the lateral edge of the talus. ankle mortise intact. Assessment & Plan Assessment & Plan (1) Avulsion fracture of talus: Code(s): S92.153A - Displaced avulsion fracture (chip fracture) of unspecified talus, initial encounter for closed fracture Qualifiers: Encounter type: initial encounter Fracture type: closed Fracture alignment: nondisplaced Laterality: right Qualified Code(s): S92.154A - Nondisplaced avulsion fracture (chip fracture) of right talus, initial encounter for closed fracture Plan She is going to work with physical therapy for ROM, gentle strengthening and proprioceptive training. She was given lace up ankle brace to transition into with physical therapy and I did stress the importance of icing and taking anti- inflammatories to help with the pain and swelling. She will see me back in 6 weeks for a follow-up, sooner if needed. Orders: Orders PT Evaluation and Treatment Today S92.153A - Displaced avulsion fracture (chip fracture) of unspecified talus, initial encounter for closed fracture Patient Instructions: Scribed for Daniel Pisano PA-C, by Elias Marlow medical service representative, on 05/23/2023 at 10:15 AM EST. IDaniel PA-C, have personally reviewed and agree with the information entered by the scribe. Coding Level of Care Code New Pt Level 3 (68854) Diagnoses Closed nondisplaced avulsion fracture of right talus, initial encounter S92.154A Encounter type: initial encounter Fracture type: closed Fracture alignment: nondisplaced Laterality: right
== END 2023-05-23 11:37 | disposition home or self-care (01) ==
PROVIDERS: PCP Family Medicine; Visit Provider Physician Assistant
DX: S92.154A Nondisplaced avulsion fracture (chip fracture) of right talus, initial encounter for closed fracture (principal)
CPT/HCPCS: 99203

== ENCOUNTER → 2023-05-23 10:39 | Outpatient (BNVA) | payer OTHER, SELFPAY | PROVIDERS: PCP Family Medicine; Visit Provider Physician Assistant ==

== ENCOUNTER 2023-07-03 09:16 | Outpatient (AMB) | payer OTHER, SELFPAY ==
--- NOTE | 2023-07-03 09:38 | A.OFFVIS_ITS ---
Intake Vital Signs 07/03/23 09:39 Height 5 ft Weight 165 lb BMI 32.2 Intake Visit Reasons: ov- Rt Avulsion Ankle fx Intake Note: Tri a 52 year old female who presents today for an ER follow up of right ankle avulsion fx, DOI 05/17/23. Patient reports discomfort at the lateral aspect of ankle. She has been attending PT. Ballet Professor Name: Michael ID#[id number] Allergies Penicillins [PENICILLINS] Allergy (Severe, Verified 07/03/23 09:38) RASH HPI ov- Rt Avulsion Ankle fx HPI Details 52-year-old female who returns to the [facility] today with an sheriff for a follow-up of right ankle fracture, 05/17/23. She continues to have pain in the lateral aspect of her ankle but reports she has improvement since her last visit. She is working on physical therapy with benefits. [facility] Medical History Adrenal nodule Depression Diabetes mellitus Gastric varices GERD (gastroesophageal reflux disease) HTN (hypertension) Hyperlipemia IBS (irritable bowel syndrome) Migraine headache Renal calculi Surgical History History of surgery History of esophagogastroduodenoscopy (EGD) Hx of colonoscopy Hx of tubal ligation Hx of discectomy Family History Father Hx of type 1 diabetes mellitus History of epilepsy Mother Family history of high blood pressure Hx of cancer of uterus Social History Household Members: Children Alcohol intake: never Patient Tobacco Use Status: Never used Tobacco Current occupational status: employed 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 No pain along the syndesmosis or anterior tibia. No laxity, NVI. Assessment & Plan Assessment & Plan (1) Avulsion fracture of talus: Code(s): S92.153A - Displaced avulsion fracture (chip fracture) of unspecified talus, initial encounter for closed fracture Qualifiers: Encounter type: initial encounter Fracture alignment: nondisplaced Fracture type: closed Laterality: right Qualified Code(s): S92.154A - Nondisplaced avulsion fracture (chip fracture) of right talus, initial encounter for closed fracture Plan She will continue working with physical therapy increasing activities as tolerated. She will ween out from her lace up ASO brace as symptoms improve and she will see me back as needed. Patient Instructions: Scribed for Daniel Pisano PA-C, by Elias Marlow medical library assistant, on 07/03/2023 at 9:45 AM EST. Daniel Fernández PA-C, have personally reviewed and agree with the information entered by the scribe. Coding Level of Care Code Est Pt Level 3 (42195) Diagnoses Closed nondisplaced avulsion fracture of right talus, initial encounter S92.154A Encounter type: initial encounter Fracture alignment: nondisplaced Fracture type: closed Laterality: right
[2023-07-03 09:39] VITALS: BMI 32.2
== END 2023-07-03 10:54 | disposition home or self-care (01) ==
PROVIDERS: PCP Family Medicine; Visit Provider Physician Assistant
DX: S92.154A Nondisplaced avulsion fracture (chip fracture) of right talus, initial encounter for closed fracture (principal)
CPT/HCPCS: 99213

== ENCOUNTER → 2023-07-03 09:16 | Outpatient (BNVA) | payer OTHER, SELFPAY | PROVIDERS: PCP Family Medicine; Visit Provider Physician Assistant | DX: S92.154A Nondisplaced avulsion fracture (chip fracture) of right talus, initial encounter for closed fracture (principal) | CPT/HCPCS: 99212 ==

== ENCOUNTER 2023-07-12 11:00 | Outpatient (RCR) | payer OTHER, SELFPAY ==
[2023-06-12 10:09] VITALS: BP 121/68; PULSE 64
--- NOTE | 2023-06-12 11:13 | MHC.PT.EP ---
[facility] [place] Office [place] [facility] [place] Office [address] [phone] F: [phone] F: [phone] F: [phone] F: [phone] Physical Therapy Plan of Care Date of Evaluation: 06/12/23 Date of Surgery: NA Diagnosis: Avulsion fracture of talus Assessment: Tri is a 52 year old female who is referred to PT for avulsion fracture of talus . She sustained the fracture in her R talus about 3.5 weeks back when she missed a step and fell backwards. Her ankle was immobilized in an aircast she has been WBAT. She presented today to PT with her lace brace and per ortho notes and pt she would transitioned to lace brace in PT. On PT examination she presented with TTP around ankle joint line, 3-5/10 constant pain in R ankle, decreased R ankle ROM, decreased R LE strength, altered posture, balance and gait. She lives with her daughter and is independent with all ADLS however has pain with them. 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 She would benefit from skilled PT to address the aforementioned impairments and improve tolerance to functional activities. Frequency and Duration: The patient will be seen 2/ week for 6 weeks Short Term Goals: 1. Pt will be able to ambulate with lace up brace with a pain no more than 2/10 in 2 weeks. 2. Pt will have all ankle ROM WNL and pain free which will help negotiate stairs without pain in 4 weeks. Fci Goals: 1. Pt will have an increase in muscle strength by 1 grade which will enable her to walk without brace and pain in 5 weeks. 2. Pt will be independent with HEP for symptom management and maintenance following d/c in 6 weeks. Treatment Plan: Modalities to reduce pain, spasms and effusion. Manual therapy to restore motion and function. Therapeutic exercise to improve strength and flexibility. Neuromuscular re-education for posture and balance. Therapeutic activities to return to functional activities of daily living. Electronically signed by: Ella Ortiz PT DPT Please sign and return to therapist. Thank you for your referral.
--- NOTE | 2023-07-29 10:11 | MHC.PT.DC ---
[facility] [place] Office [place] Office [place] Office [address] Jonas Hammond [address] [phone] F: [phone] F: [phone] F: [phone] F: [phone] Physical Therapy Discharge Report Diagnosis: Avulsion fracture of talus Date of Surgery: NA Date of Evaluation: 06/12/23 Date of Discharge: 07/29/23 Treatments to Date: 9 Cancellations to Date: 0 No Shows to Date: 1 Discharge Status: Discharge Summary: Tri completed 9 PT visits and was doing well. She was about to be d/c in 2 visits. However just prior to her d/c she fell down the stairs and sprained her ankle. She was immobilized in a walking boot. Due to change of medical status and presence of new diagnosis she was is being d/c from PT for talus fracture. Tri was in agreement with the plan. Electronically signed by: Ella Ortiz PT DPT Please sign and return to therapist. Thank you for your referral.
== END 2023-07-29 10:11 | disposition home or self-care (01) ==
LOC: HO.PT 11:00
PROVIDERS: PCP Family Medicine; Visit Provider Physician Assistant
DX: S92.151D Displaced avulsion fracture (chip fracture) of right talus, subsequent encounter for fracture with routine healing (principal)
CPT/HCPCS: 97110; 97112; 97161; 97530

== ENCOUNTER 2023-07-12 14:54 | Emergency (ER) | payer OTHER, SELFPAY ==
--- NOTE | ~2023-07-12 | XR_ITS ---
EXAMINATION: XR ANKLE, LEFT CLINICAL INFORMATION: Fall, swelling and tenderness lateral malleolus. COMPARISON: Radiograph left ankle 02/26/2021. TECHNIQUE: AP, lateral, and mortise views of the left ankle. FINDINGS: Subtle cortical irregularity along the dorsal surface of the talus on the lateral view with mild overlying soft tissue swelling. No displaced fracture or subluxation. Soft tissue swelling adjacent to the lateral malleolus on the frontal view. No unexpected radiopaque foreign bodies. XR/XR ankle LT min 3V IMPRESSION: Subtle cortical irregularity along the dorsal surface of the talus on the lateral view with overlying soft tissue swelling. A subtle avulsion fracture is not excluded. Correlate for point tenderness.
[2023-07-12 16:04] VITALS: BP 136/61; PULSE 101; RESP 18; TEMP 36.8; O2SAT 98; BMI 33.2
--- NOTE | 2023-07-12 16:05 | ED_ITS ---
HPI - General Adult General Chief complaint: Extremity Injury, Lower Stated complaint: L Foot Injury 07/12/23 Time Seen by Provider: 07/12/23 17:04 History of Present Illness HPI narrative: Patient is a 52 old female who presents emergency department for evaluation of traumatic left foot/ ankle pain after mechanical trip and fall down 2 stairs earlier today resulting in an inversion injury to the foot. Denies any head strike or loss of consciousness, no use of anticoagulants. She arrived with a walking boot in place which she had from a prior injury to the right foot. Reports despite use of this and crutches she continues to have pain to the ankle. denies numbness tingling or cold sensation to the foot. Related Data Home Medications Medication Instructions Recorded Confirmed amitriptyline 150 mg tablet 150 mg PO BEDTIME 09/21/20 02/26/23 gabapentin 400 mg capsule 400 mg PO TID 09/21/20 02/26/23 atorvastatin 10 mg tablet 10 mg PO BEDTIME 03/01/21 02/26/23 propranolol 120 mg capsule,24 120 mg PO DAILY 03/01/21 02/26/23 hr,extended release metformin 500 mg tablet,extended 500 mg PO QPM 08/09/21 02/26/23 release 24 hr baclofen 20 mg tablet 20 mg PO TID PRN muscle spasm 10/02/21 02/26/23 clobetasol 0.05 % topical ointment g topical BID 10/02/21 02/26/23 diclofenac sodium 50 mg 50 mg PO BID PRN pain 10/02/21 02/26/23 tablet,delayed release diphenhydramine HCl 2 % topical topical TID PRN 10/02/21 02/26/23 gel (Benadryl) ergocalciferol (vitamin D2) 1,250 1,250 mcg PO QWEEK 10/02/21 02/26/23 mcg (50,000 unit) capsule (Vitamin D2) acetaminophen 650 mg 650 mg PO Q8H PRN fever 11/21/21 02/26/23 tablet,extended release (Mapap Arthritis Pain) loratadine 10 mg tablet 10 mg PO DAILY 11/21/21 02/26/23 pantoprazole 40 mg tablet,delayed 40 mg PO DAILY 07/26/22 02/26/23 release Previous Rx's Medication Instructions Recorded cetirizine 10 mg tablet 10 mg PO DAILY #30 tabs 10/10/21 albuterol sulfate 90 mcg/actuation 2 inh inhalation QID PRN shortness 03/09/22 aerosol inhaler of breath or wheezing #6.7 grams pyridoxine (vitamin B6) 50 mg 50 mg PO DAILY 90 days #90 tabs 02/26/23 tablet hydrocortisone 2.5 % topical cream 1 appl W[place] BID-QID PRN hemorrhoids 04/26/23 with perineal applicator #30 grams (Proctosol HC) ondansetron HCl 4 mg tablet 4 mg PO Q8H PRN for 04/26/23 nausea/vomiting #20 tabs simethicone 125 mg capsule 125 mg PO BID-QID PRN abdominal 04/26/23 distention #120 caps linaclotide 145 mcg capsule 145 mcg PO DAILY #30 caps 04/30/23 (Linzess) sucralfate 1 gram tablet 1 g PO BEDTIME #30 tabs 06/28/23 Allergies Allergy/AdvReac Type Severity Reaction Status Date / Time Penicillins [PENICILLINS] Allergy Severe RASH Verified 07/12/23 16:09 Review of Systems Review of Systems: Yes all other systems are reviewed and are negative PMFSH Past Medical History Attestation statement: The following information was validated with the patient. Source: old records reviewed Medical History Renal calculi Gastric varices Migraine headache Depression GERD (gastroesophageal reflux disease) Diabetes mellitus Adrenal nodule IBS (irritable bowel syndrome) HTN (hypertension) Hyperlipemia Surgical History History of surgery History of esophagogastroduodenoscopy (EGD) Hx of colonoscopy Hx of tubal ligation Hx of discectomy Family History Family History Father Hx of type 1 diabetes mellitus History of epilepsy Mother Family history of high blood pressure Hx of cancer of uterus Social History Social History Household Members: Children Alcohol intake: never Patient Tobacco Use Status: Never used Tobacco Advance Directives: No Advance Directives Information Provided: No Current occupational status: employed 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 No acute distress.?Normal affect. Neck: Normal inspection.? Neck supple.?? CVS: Heart sounds normal. Normal heart rate and rhythm.? Pulses normal.?? Respiratory: No respiratory distress.? Lung sounds clear to auscultation bilaterally?? Skin: Skin warm and dry.? Normal skin color.??? Extremities: No lower extremity edema.? No calf ttp? 2+ DP/ PT pulse bilaterally. Localized swelling and ecchymosis to the lateral malleolus and dorsal anterior ankle. Neuro: Moves all extremities spontaneously. Sensation intact bilaterally. Ambulates with Antalgic gait. Course Course Course Narrative: This is a rapid medical exam: Additional HPI, ROS, PE not included below will be deferred to primary provider. Patient is a 52-year-old Wolof speaking female presenting to the emergency department with complaint of left foot pain after a fall down two stairs earlier today. Denies head strike, is not anticoagulated. Patient arrived in walking boot on left foot which she states was from a prior injury to right foot. Swelling and tenderness to lateral malleolus, 2+ DP and PT pulses. States she is only able to move great toe. Did not take any OTC medications prior to arrival. Plan: x-ray Medical Decision Making Medical Decision Making MDM Narrative: patient is a 52 old female who presents emergency department for evaluation of traumatic left ankle pain as per HPI. At the time my examination she appears overall well, she is wearing a walking boot which she had at home due to a prior injury. Pain is alleviated with use of the boot. Localized swelling to the lateral malleolus with ecchymosis and tenderness upon palpation. Extremities neurovascularly intact distally. XR imaging revealivng subtle cortical irregularity along the talus concerning for possible subtle avulsion fracture, she does have point tenderness in this location. I reviewed this finding with patient. Advised to remain in walking boot, and provided with contact information for Orthopedics to arrange for outpatient follow-up. Discussed worrisome signs and symptoms that would warrant re-evaluation emergency department. All questions answered. Stable for discharge. Differential Diagnosis Differential Diagnoses: The differential diagnosis associated with the presentation includes ( fracture, dislocation, sprain) Independent Interpretation I performed an independent interpretation of an: Plain X-Ray ( I personally interpreted XR imaging and agree with radiologist impression) Radiology Impression Discussion of test interpretation with radiology: I have reviewed the radiologist's reading. Radiologist Impression: XR/XR ankle LT min 3V IMPRESSION: Subtle cortical irregularity along the dorsal surface of the talus on the lateral view with overlying soft tissue swelling. A subtle avulsion fracture is not excluded. Correlate for point tenderness. External Record Review External record reviewed: Outpatient record Prescription Management I considered prescription management with: Pain Medication Discharge Plan Discharge Clinical Impression: Ankle sprain Qualifiers: Encounter type: initial encounter Laterality: left Patient Disposition: Home, Self-Care Instructions: Ankle Sprain (ED) Additional Instructions: as discussed, there is a slight irregularity on your x-ray which might indicate a subtle fracture, avulsion fracture. Please continue wearing the walking boot and using crutches as you have been. Contact orthopedic office on Saturday to arrange for further follow-up. You may return back to the emergency department with any new or worsening symptoms or concerns. You can take ibuprofen 200 mg, 3 tablets (600mg) every 6-8 hours as needed for pain, in addition to Tylenol 500 mg, 2 tablets (1,000mg) every 4-6 hours as needed for pain, but not to exceed 3 doses daily (3,000mg).? I have sent a prescription for oxycodone to your pharmacy, this is a narcotic medication and may be addictive. You should not drive, drink alcohol, or work while taking this medication. Do not take this medication in addition to your gabapentin as the 2 medications combined can cause serious side effects. Prescriptions: No Action Linzess 145 mcg capsule 145 mcg PO DAILY Qty: 30 2RF sucralfate 1 gram tablet 1 g PO BEDTIME Qty: 30 4RF albuterol sulfate 90 mcg/actuation HFA aerosol inhaler 2 inh inhalation QID PRN (Reason: shortness of breath or wheezing) Qty: 6.7 0RF gabapentin 400 mg capsule 400 mg PO TID amitriptyline 150 mg tablet 150 mg PO BEDTIME propranolol 120 mg capsule,extended release 24 hr 120 mg PO DAILY atorvastatin 10 mg tablet 10 mg PO BEDTIME metformin 500 mg tablet extended release 24 hr 500 mg PO QPM cetirizine 10 mg tablet 10 mg PO DAILY Qty: 30 2RF baclofen 20 mg tablet 20 mg PO TID PRN (Reason: muscle spasm) ergocalciferol (vitamin D2) [Vitamin D2] 1,250 mcg (50,000 unit) capsule 1,250 mcg PO QWEEK clobetasol 0.05 % ointment topical BID diclofenac sodium 50 mg tablet,delayed release (DR/EC) 50 mg PO BID PRN (Reason: pain) Benadryl 2 % gel topical TID PRN loratadine 10 mg tablet 10 mg PO DAILY acetaminophen [Mapap Arthritis Pain] 650 mg tablet extended release 650 mg PO Q8H PRN (Reason: fever) pantoprazole 40 mg tablet,delayed release (DR/EC) 40 mg PO DAILY pyridoxine (vitamin B6) 50 mg tablet 50 mg PO DAILY 90 Days Qty: 90 3RF ondansetron HCl 4 mg tablet 4 mg PO Q8H PRN (Reason: for nausea/vomiting) Qty: 20 1RF simethicone 125 mg capsule 125 mg PO BID-QID PRN (Reason: abdominal distention) Qty: 120 3RF hydrocortisone [Proctosol HC] 2.5 % cream with perineal applicator 1 appl WV BID-QID PRN (Reason: hemorrhoids) Qty: 30 2RF Referrals: Ceci Galvin PA-C [Physician [employer]] - Farhana Horn DO [Primary Care Provider] -
== END 2023-07-12 19:36 | disposition home or self-care (01) ==
PROVIDERS: Emergency Provider Emergency Medicine; PCP Family Medicine
DX: S93.402A Sprain of unspecified ligament of left ankle, initial encounter (principal); M25.572 Pain in left ankle and joints of left foot; W10.9XXA Fall (on) (from) unspecified stairs and steps, initial encounter; Y93.9 Activity, unspecified; Y92.9 Unspecified place or not applicable; Y99.9 Unspecified external cause status; Z79.899 Other long term (current) drug therapy
CPT/HCPCS: 73610; 99282; 99283

== ENCOUNTER 2023-07-19 12:34 | Outpatient (AMB) | payer OTHER, SELFPAY ==
--- NOTE | 2023-07-19 12:57 | A.OFFVIS_ITS ---
Intake Intake Visit Reasons: OV- Left ankle sprain Intake Note: Tri a 52 year old female who presents today for an ER follow up of left ankle, DOI 07/12/23. Patient reports that she fell down the stairs, presented to [facility] ED the same day where xrays were taken and placed in a walking boot. Currently states her pain has increased and is radiating into her villar area. Allergies Penicillins [PENICILLINS] Allergy (Severe, Verified 07/19/23 12:59) RASH HPI OV- Left ankle sprain HPI Details 52-year-old female who returns to the [facility] today for an ER follow-up of left ankle injury s/p fall down the stairs, 07/12/23. She was seen at ED the same day where x-rays were performed and she was placed in a walking boot. She currently states she has worsened pain in her ankle which radiates into her villar area. [facility] Medical History Renal calculi Gastric varices Migraine headache Depression GERD (gastroesophageal reflux disease) Diabetes mellitus Adrenal nodule IBS (irritable bowel syndrome) HTN (hypertension) Hyperlipemia Surgical History History of surgery History of esophagogastroduodenoscopy (EGD) Hx of colonoscopy Hx of tubal ligation Hx of discectomy Family History Father Hx of type 1 diabetes mellitus History of epilepsy Mother Family history of high blood pressure Hx of cancer of uterus Social History Household Members: Children Alcohol intake: never Patient Tobacco Use Status: Never used Tobacco Current occupational status: employed 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 No discomfort along the posterior aspect of the ankle, no deformity along the Achilles tendon, negative Leon?s. No pain along the syndesmosis or anterior tibia. No laxity, NVI. Office Procedures Fracture Care Fracture Billing Code: Fracture Billing Code Results Reviewed Results Reviewed: xrays of the left ankle obtained in the ED show a subtle avulsion of the talus Assessment & Plan Assessment & Plan (1) Avulsion fracture of talus: Code(s): S92.153A - Displaced avulsion fracture (chip fracture) of unspecified talus, initial encounter for closed fracture Qualifiers: Encounter type: initial encounter Fracture type: closed Fracture alignment: nondisplaced Laterality: right Qualified Code(s): S92.154A - Nondisplaced avulsion fracture (chip fracture) of right talus, initial encounter for closed fracture Plan We discussed the extent of her injury. I explained recovery timeframe for avulsion fx/ankle sprain. She should wear her boot for 2-3 weeks while ambulating, wbat. She cane remove for icing and elevating along with hygiene. She will proceed with PT and NSAIDs. I did explain her symptoms may wax and wane depending on her activity level .If symptoms persist, the patient will contact me , otherwise, PRN. Orders: Orders PT Evaluation and Treatment 07/19/23 S93.402A - Sprain of unspecified ligament of left ankle, initial encounter Medications: New tramadol 50 mg PO BEDTIME 7 tabs 0RF 7 days ibuprofen 800 mg PO Q8H PRN 90 tabs 3RF pain 30 days acetaminophen 650 mg (2 x 325 mg) PO Q4-6H PRN 240 tabs 0RF fever or pain 30 days Patient Instructions: Scribed for Daniel Pisano PA-C, by Elias Marlow medical technologist generalist, on 07/19/2023 at 12:45 PM EST. Daniel Fernández PA-C, have personally reviewed and agree with the information entered by the scribe. Coding Level of Care Code Est Pt Level 3 (97922) Diagnoses Closed nondisplaced avulsion fracture of right talus, initial encounter S92.154A Encounter type: initial encounter Fracture type: closed Fracture alignment: nondisplaced Laterality: right CPT Codes Fracture Care - Fracture Billing Code: Fracture Billing Code ([id number])
== END 2023-07-19 13:22 | disposition home or self-care (01) ==
PROVIDERS: PCP Family Medicine; Visit Provider Physician Assistant
DX: S92.154A Nondisplaced avulsion fracture (chip fracture) of right talus, initial encounter for closed fracture (principal); W10.9XXA Fall (on) (from) unspecified stairs and steps, initial encounter
CPT/HCPCS: 99213

== ENCOUNTER → 2023-07-19 12:34 | Outpatient (BNVA) | payer OTHER, SELFPAY | PROVIDERS: PCP Family Medicine; Visit Provider Physician Assistant | DX: S92.154A Nondisplaced avulsion fracture (chip fracture) of right talus, initial encounter for closed fracture (principal) | CPT/HCPCS: 99212 ==

== ENCOUNTER 2023-07-26 12:16 | Outpatient (REF) | payer OTHER, SELFPAY ==
[2023-07-26 13:30] LABS: MANUAL DIFF FLAG NO
[2023-07-26 13:35] LABS: Basophils Percent Auto 0.6 % (0-2); Eosinophils Absolute Auto 0.2 X10*3/uL (0.0-0.4); Eosinophils Percent Auto 2.1 % (0-4); Hematocrit 37.8 % (37.0-47.0); Hemoglobin 11.9 g/dl (12.0-16.0); Imm Gran Abs Auto 0.02 X10*3/uL (0.00-0.03); Imm Gran Pct Auto 0.3 % (0.0-0.4); Lymphocytes Absolute Auto 3.1 X10*3/uL (1.2-4.9); Lymphocytes Percent Auto 44.5 % (20-40); Mean Corpuscular HGB Conc 31.5 g/dl (31.0-35.0); Mean Corpuscular Hemoglobin 26.9 pg (27.0-33.0); Mean Corpuscular Volume 85.5 fL (80.0-98.0); Mean Platelet Volume 8.8 fL (9.4-12.3); Monocytes Absolute Auto 0.6 X10*3/uL (0.1-1.2); Monocytes Percent Auto 7.8 % (2-11); Neutrophils Absolute Auto 3.2 x10*3/uL (2.0-8.3); Neutrophils Percent Auto 44.7 % (45-73); Platelet Count 322 X10*3/uL (160-400); Red Blood Count 4.42 X10*6/uL (4.20-5.50); Red Cell Distribution Width 13.6 % (11.0-16.0); White Blood Count 7.1 X10*3/uL (4.8-10.8)
[2023-07-26 13:50] LABS: Alanine Aminotransferase 38 U/L (0-31); Alkaline Phosphatase 123 U/L (39-117); Anion Gap 10 (12-20); Aspartate Amino Transferase 31 U/L (5-31); Bilirubin Direct < 0.2 mg/dL (0.0-0.5); Bilirubin Total 0.2 mg/dL (0.0-1.0); Blood Urea Nitrogen 12 mg/dL (9-16); Calcium 9.2 mg/dL (8.4-10.2); Carbon Dioxide 28 mmol/L (22-29); Chloride 108 mmol/L (96-108); Cholesterol 150 mg/dL (<200); Estimated Glomerular Filt Rate > 60; Glucose Random 182 mg/dL (60-115); HDL Cholesterol 39 mg/dL (>40); LDL Cholesterol Calculated 85 mg/dL (<100); Potassium 4.3 mmol/L (3.3-5.1); Sodium 142 mmol/L (135-145); Total Protein 7.2 g/dL (6.5-8.0); Triglycerides 132 mg/dL (<150)
[2023-07-26 13:52] LABS: Estimated Average Glucose 171 mg/dL; Hemoglobin A1c % 7.6 % (<6.0)
[2023-07-26 14:05] LABS: Free T4 (Free Thyroxine) 1.03 ng/dL (0.71-1.85); Thyroid Stimulating Hormone 1.77 uIU/mL (0.32-4.0); Vitamin D 25-OH Total 39.4 ng/mL (>30)
[2023-07-26 14:21] LABS: Creatinine Urine 182.16 mg/dL; Microalbum/Creatinine Ratio Ur 7.6 ug/mg cr (<30)
== END 2023-07-26 12:17 | disposition home or self-care (01) ==
LOC: HO.HHCL 12:16
PROVIDERS: Visit Provider Family Medicine
DX: E11.9 Type 2 diabetes mellitus without complications (principal)
CPT/HCPCS: 36415; 80048; 80061; 80076; 82043; 82306; 82570; 83036; 84439; 84443; 85025

== ENCOUNTER 2023-07-31 14:04 | Outpatient (REF) | payer OTHER, SELFPAY ==
--- NOTE | ~2023-07-31 | MM_ITS ---
EXAMINATION: BONE DENSITOMETRY CLINICAL INDICATION: Osteoporosis. COMPARISON: This is the patient's baseline examination. TECHNIQUE: Using a Compressus DXA System (software version: 13.1) manufactured by Recommend, dual-energy x-ray absorptiometry was performed of the lumbar spine and left hip. The images are of good technical quality. Summary results are attached. FINDINGS: AP SPINE L1-L4: BMD 1.165 g/cm2, Z-score 0.3, T-score -0.1, normal. LEFT FEMUR, NECK: BMD 0.801 g/cm2, Z-score -0.9, T-score -1.7, osteopenia. LEFT FEMUR, TOTAL: BMD 0.945 g/cm2, Z-score -0.1, T-score -0.5, normal. IDENTIFIED RISK FACTORS: Recurrent falls. Menopause. HISTORY OF FRACTURE: Other (feet). MEDICATIONS: Multiple multivitamin. Vitamin D. MM/XR DEXA axial skeleton IMPRESSION: 1. DIAGNOSIS: Osteopenia based on the lowest T-score value of -1.7 in the femoral neck applying World Health Organization criteria. 2. 10-YEAR FRACTURE RISK PREDICTION, FRAX: Major osteoporotic fracture (clinical spine, forearm, hip or shoulder) 3.6%. Hip fracture 0.3%. 3. Treatment Recommendations: NOF guidelines recommend consideration for treatment in postmenopausal women and men age 50 and older presenting with the following: -A hip or vertebral (clinical or morphometric) fracture. -T-score less than or equal to -2.5 at the femoral neck or spine after appropriate evaluation to exclude secondary causes. -Low bone mass at the hip or spine and a 10-year fracture probability by FRAX of greater than or equal to 3% for hip fracture or greater than or equal to 20% for major osteoporotic fracture based on the [place] adapted WHO algorithm. 4. Other Recommendations: All treatment decisions require clinical judgment and consideration of individual patient factors, including patient preferences, comorbidities, previous drug use, risk factors not captured in the FRAX model (e.g. frailty, falls, vitamin D deficiency, increased bone turnover, interval significant decline in bone density) and possible under or overestimation of fracture risk by FRAX. Additional medical evaluation for secondary cause of low bone mineral density may be appropriate. FUTURE SCAN RECOMMENDATION: People with diagnosed cases of osteoporosis or at high risk for fracture should have regular bone mineral density tests. For patients eligible for Medicare, routine testing is allowed once every 2 years. The testing frequency can be increased to one year for patients who have rapidly progressing disease, those who are receiving or discontinuing medical therapy to restore bone mass, or have additional risk factors.
== END 2023-07-31 14:05 | disposition home or self-care (01) ==
LOC: HO.MAMMO 14:04
PROVIDERS: PCP Family Medicine; Visit Provider Family Medicine
DX: Z13.820 Encounter for screening for osteoporosis (principal); T07.XXXA Unspecified multiple injuries, initial encounter; Z78.0 Asymptomatic menopausal state
CPT/HCPCS: 77080

== ENCOUNTER 2023-08-14 09:48 | Outpatient (AMB) | payer OTHER, SELFPAY ==
--- NOTE | 2023-08-14 09:58 | A.OFFVIS_ITS ---
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 No complaints. Last Pap/HPV was negative in 07/29 Last Mammogram was BI-RADS 1 in 08/30 Last Colonoscopy was in 01/25, the recommendation was to repeat in 5 years [facility] Medical History Renal calculi Gastric varices Migraine headache Depression GERD (gastroesophageal reflux disease) Diabetes mellitus Adrenal nodule IBS (irritable bowel syndrome) HTN (hypertension) Hyperlipemia Surgical History History of surgery History of esophagogastroduodenoscopy (EGD) Hx of colonoscopy Hx of tubal ligation Hx of discectomy Family History Father Hx of type 1 diabetes mellitus History of epilepsy Mother Family history of high blood pressure Hx of cancer of uterus Social History Household Members Other:: daughter Housing: House Alcohol intake: never Patient Tobacco Use Status: Never used Tobacco Current occupational status: employed 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 Sexual orientation: Straight/Heterosexual Gender identity: Female Female Reproductive History Menstrual Age of Menarche: 10 control method: permanent sterilization Total pregnancies: 3 Full term: 3 Number of Living Children: 3 Date of last pap smear: 08/02/20 Date of Mammogram: 09/07/22 Review of Systems Const All systems reviewed & are unremarkable except as noted in HPI and below Card Reports as per HPI Resp Reports as per HPI GI Reports as per HPI and Reports no additional complaints Reports as per HPI Physical Exam Vital Signs: BMI result Body Mass Index 30.9 Const General: cooperative, healthy appearing and comfortable Chest Chest palpation & inspection: normal inspection of the chest and normal palpation of entire chest wall Breast/axilla inspection: normal inspection of the breasts and normal inspection of the axillae Breast/axilla palpation: normal palpation of the breasts, normal palpation of the axillae and no axillary lymphadenopathy Resp Effort & Inspection: normal respiratory effort Auscultation: clear to auscultation bilaterally Percussion: percussion normal Cardio Palpation: normal PMI Rate: regular rate Rhythm: regular rhythm Heart sounds: no murmurs and no rubs Peripheral pulses: Peripheral pulses 2+ throughout GI Inspection: Yes normal to inspection Palpation (GI): Soft to palpation, nontender, no guarding, not rigid and No hepatosplenomegaly present Percussion: Yes normal to percussion Auscultation: normal bowel sounds Rectal Exam - Female: deferred General: Yes bladder normal to palpation External Female Exam: No lesion Speculum Exam - Vagina: normal appearance of the vagina, normal palpation, normal vaginal discharge and not erythematous Speculum Exam - Cervix: normal appearance of the cervix and normal palpation Bimanual exam- vagina & uterus: normal bimanual exam, normal palpation, uterine size normal, bladder normal to palpation, consistency normal and normal palpation Bimanual Exam- Adnexa, other: normal adnexae, no masses and no tenderness Assessment & Plan Assessment & Plan (1) Well woman exam: Code(s): Z01.419 - Encounter for gynecological examination (general) (routine) without abnormal findings Plan: Co testing not indicated this year. Counseled the patient about the recommended dietary allowance of 1200 mg of Calcium & 600 IU of vitamin D. Mammogram ordered. The patient was instructed to perform monthly self-breast exams and schedule annual exam in a year. All questions answered and the patient verbalized understanding. Orders: Orders MM screening mammo BI Today Z12.31 - Encounter for screening mammogram for malignant neoplasm of breast Coding Level of Care Code Est Pt Prev Care 40-64y(94577) Diagnoses Well woman exam Z01.419
[2023-08-14 10:01] VITALS: BP 114/66; BMI 30.9
== END 2023-08-14 10:26 | disposition home or self-care (01) ==
PROVIDERS: Visit Provider Obstetrics & Gynecology
DX: Z01.419 Encounter for gynecological examination (general) (routine) without abnormal findings (principal)
CPT/HCPCS: 99396

== ENCOUNTER → 2023-08-14 09:48 | Outpatient (BNVA) | payer OTHER, SELFPAY | PROVIDERS: Visit Provider Obstetrics & Gynecology ==

== ENCOUNTER 2023-09-04 18:12 | Outpatient (REF) | payer OTHER, SELFPAY ==
--- NOTE | ~2023-09-04 | MR_ITS ---
EXAMINATION: MR ANKLE WITHOUT CONTRAST, LEFT CLINICAL INFORMATION: Left ankle pain, swelling, numbness. Fall one month ago. Fracture with persistent swelling and severe pain. COMPARISON: Left ankle radiographs dated 07/12/2023. TECHNIQUE: MRI of the ankle was performed using routine sequences on a high-field scanner. FINDINGS: BONE AND ARTICULAR CARTILAGE: Along the dorsal aspect of the talar head there is focal cortical irregularity and marrow edema in the region of the previously seen subtle cortical avulsion fracture. A small adjacent fracture fragment is not well identified, however, evaluation of bone detail is limited on MR examination. There is a nondisplaced fracture along the dorsal/lateral aspect of the anterior calcaneal process which measures up to 1.9 cm in ML dimension. This contacts the calcaneocuboid articular surface without significant cortical step off. Prominent associated marrow edema. Additional marrow edema throughout the cuboid with a somewhat linear focus of low T1 signal laterally, consistent with osseous contusion/trabecular microfracture. More mild marrow edema within the lateral cuneiform and lateral aspect of the talus, consistent with osseous contusions. Subtle marrow edema along the plantar aspect of the calcaneal body, consistent with osseous contusions. Intact articular cartilage. No talar osteochondral lesion. No concerning lytic or blastic osseous lesion. ACHILLES TENDON: Intact. OTHER TENDONS: Intact. LIGAMENTS: Thickening and heterogeneity of the anterior and posterior talofibular ligaments, consistent with grade 2 sprain/partial tears. Mild adjacent soft tissue edema. JOINT FLUID AND SOFT TISSUES: Small tibiotalar and subtalar joint effusions. Mild lateral subcutaneous edema. PLANTAR FASCIA: Intact. SINUS TARSI AND TARSAL TUNNEL: Patent. MR/MR ankle LT wo con IMPRESSION: 1. Nondisplaced fracture along the dorsal/lateral aspect of the anterior calcaneal process which contacts the calcaneocuboid articular surface without significant cortical step off. Prominent associated marrow edema. 2. Additional osseous contusions throughout the cuboid, lateral cuneiform, and lateral aspect of the talus. More subtle osseous contusions along the plantar aspect of the calcaneal body. 3. Probable grade 2 sprain/partial tears of the anterior and posterior talofibular ligaments with mild adjacent soft tissue edema. 4. Small tibiotalar and subtalar joint effusions. Mild lateral subcutaneous edema.
== END 2023-09-04 18:13 | disposition home or self-care (01) ==
LOC: HO.MRI 18:12
PROVIDERS: PCP Family Medicine; Visit Provider Family Medicine
DX: S82.892A Other fracture of left lower leg, initial encounter for closed fracture (principal)
CPT/HCPCS: 73721

== ENCOUNTER 2023-09-10 09:54 | Outpatient (REF) | payer OTHER, SELFPAY ==
--- NOTE | ~2023-09-10 | MM_ITS ---
EXAMINATION: MM SCREENING DIGITAL BREAST TOMOSYNTHESIS, BILATERAL CLINICAL INFORMATION: Screening. Asymptomatic. COMPARISON: Mammography: 09/07/2022, 09/05/2021, 08/29/2020, 03/21/2018 TECHNIQUE: Digital breast tomosynthesis is performed in both the craniocaudal and mediolateral oblique views along with computer-aided detection (CAD). Synthesized 2D images are generated from the tomosynthesis. FINDINGS: There are scattered areas of fibroglandular density (ACR BI-RADS breast composition Category b). There are no suspicious masses, suspicious grouped calcifications, or areas of architectural distortion in either breast. The parenchymal pattern is stable from prior exams. No axillary or skin abnormalities. Lymph node in the far lateral posterior left breast. MM/MM tomosynthesis screening BI IMPRESSION: No mammographic evidence of malignancy. ASSESSMENT: BI-RADS BI-RADS 2 - Benign Findings RECOMMENDATION: Routine annual mammography screening. 1 year F/U This examination should not preclude the clinical evaluation of a suspicious palpable abnormality. This patient's information was entered into a reminder system with a target due date for their next mammogram.
== END 2023-09-10 09:55 | disposition home or self-care (01) ==
LOC: HO.MAMMO 09:54
PROVIDERS: Absent Provider Obstetrics & Gynecology; PCP Family Medicine; Visit Provider Family Medicine
DX: Z12.31 Encounter for screening mammogram for malignant neoplasm of breast (principal)
CPT/HCPCS: 77063; 77067

== ENCOUNTER → 2023-09-10 10:15 | Outpatient (BNV) | payer OTHER, SELFPAY | PROVIDERS: Absent Provider Obstetrics & Gynecology; PCP Family Medicine; Visit Provider Radiology Diagnostic Radiology | DX: Z12.31 Encounter for screening mammogram for malignant neoplasm of breast (principal) | CPT/HCPCS: 77063; 77067 ==

== ENCOUNTER 2023-10-29 10:03 | Outpatient (AMB) | payer MEDICAID, SELFPAY ==
[2023-10-29 10:06] VITALS: PULSE 70; BMI 30.3
--- NOTE | 2023-10-29 10:06 | A.OFFVIS_ITS ---
Intake Vital Signs 10/29/23 10:06 Height 5 ft Weight 155 lb BMI 30.3 Blood Pressure Location Rt brachial Position Sitting Pulse 70 Pulse Source Monitor Intake Visit Reasons: 6 month fu Intake Note: Patient states shes having stomach pain with a lot of diarrhea almost every day. 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 Patient was encouraged to avoid dietary triggers and late night snacking. Staying upright for minimum 3 hours after meals discussed with patient. IBS (irritable bowel syndrome) Continue Linzess. Patient can take Citrucel to help her bulk her stools. Continue avoiding dietary triggers. Low FODMAP diet discussed with patient Chronic idiopathic constipation Continue Linzess. Patient was encouraged to increase fluid intake and activity to promote better bowel motility. I will see her in 6 months, sooner on as needed basis. Patient is agreeable to this plan and verbalizes understanding of instructions. She was given the opportunity to ask questions and all questions answered. ? Thank you for allowing me to participate in her care Plan Medications New methylcellulose (laxative) (Citrucel) take it with full glass of water 500 mg PO DAILY 90 tabs 2RF K59.00 simethicone 125 mg PO BID-QID PRN 120 caps 3RF abdom inal distention hydrocortisone 2.5% (Proctosol HC) 1 appl ND BID-QID PRN 30 grams 2RF hemor rhoids K64.9 Refilled ondansetron HCl 4 mg PO Q8H PRN 20 tabs 1RF for nausea/v omiting TODAY'S VISIT Patient is here today for follow-up and to discuss going for colonoscopy and possible upper endoscopy. Patient reports in the past couple weeks she has been having postprandial loose stools. Patient stopped taking Linzess as she felt that this was contributing to excess bowel movements. Patient denies any melena, hematochezia, unintentional weight loss or ribbon like stools. Patient reports occasional dyspepsia without dysphagia or odynophagia. Reports that pantoprazole has been helpful. Patient reports feeling gassy and occasional postprandial abdominal bloating. Patient denies any issues with anesthesia in the past. No history of sleep apnea. Not on any anticoagulation medication. FORMERLY [facility] Medical History Renal calculi Gastric varices Migraine headache Depression GERD (gastroesophageal reflux disease) Diabetes mellitus Adrenal nodule IBS (irritable bowel syndrome) HTN (hypertension) Hyperlipemia Surgical History History of surgery History of esophagogastroduodenoscopy (EGD) Hx of colonoscopy Hx of tubal ligation Hx of discectomy Family History Father Hx of type 1 diabetes mellitus History of epilepsy Mother Family history of high blood pressure Hx of cancer of uterus Social History (Updated 08/14/23 @ 10:05 by Jenny Mayer CMA) Household Members Other:: daughter Housing: House Alcohol intake: never Patient Tobacco Use Status: Never used Tobacco Current occupational status: employed Current occupation: [employer]- right handed Sexual orientation: Straight/Heterosexual Gender identity: Female Female Reproductive History Menstrual Age of Menarche: 10 Review of Systems Const Denies weight gain and Denies weight loss ENT Reports no additional complaints, Denies dysphagia and Denies odynophagia Card Reports no additional complaints Resp Reports no additional complaints GI Denies abdominal pain, Denies belching, Denies melena, Reports bloating, Denies change in bowel habits, Denies dysphagia, Denies excessive flatus, Denies dyspepsia, Denies heartburn, Denies diarrhea, Reports loose stools, Denies nausea, Denies odynophagia and Denies vomiting Reports no additional complaints Musc Reports no additional complaints Neuro Reports no additional complaints Psych Reports no additional complaints Endo Reports no additional complaints Physical Exam Vital Signs: Last Vital Signs Pulse 70 10/29/23 10:06 BMI result Body Mass Index 30.3 Const General: healthy appearing, no acute distress and well developed Nutritional Appearance: obese Orientation/consciousness: patient oriented x3 Resp Effort & Inspection: normal respiratory effort, able to speak in complete sentences, no tracheal deviation and symmetric chest movement Auscultation: clear to auscultation bilaterally Cardio Rate: regular rate GI Inspection: Yes normal to inspection, No distended and Yes obesity Palpation (GI): Soft to palpation, not firm, nontender and No hepatosplenomegaly present Auscultation: normal bowel sounds General: Yes no CVA tenderness Back/Spine/Pelvis Back: no CVA tenderness Skin General skin exam: elasticity normal, turgor normal and dry skin Neuro General: patient oriented x3 Psych Appearance: grossly normal Mental Status: mental status grossly normal Assessment & Plan Assessment & Plan (1) GERD (gastroesophageal reflux disease): Code(s): K21.9 - Gastro-esophageal reflux disease without esophagitis Qualifiers: Esophagitis presence: without esophagitis Qualified Code(s): K21.9 - Gastro-esophageal reflux disease without esophagitis (2) IBS (irritable bowel syndrome): Code(s): K58.9 - Irritable bowel syndrome without diarrhea Qualifiers: Irritable bowel syndrome type: with constipation Qualified Code(s): K58.1 - Irritable bowel syndrome with constipation (3) Chronic idiopathic constipation: Code(s): K59.04 - Chronic idiopathic constipation (4) Screen for colon cancer: Code(s): Z12.11 - Encounter for screening for malignant neoplasm of colon Plan Patient will continue taking pantoprazole every morning. Discussed with patient avoiding dietary triggers and late night snacking. Patient reports postprandial abdominal bloating and occasional loose stools. I will have her try low FODMAP diet. List of food recommended as well as list of food to avoid given to patient. Patient will be sent for upper endoscopy when going for colonoscopy to rule out gastritis, esophagitis, Schatzki ring, Urias's, H pylori. What to expect before during and after the procedure discussed with patient. The importance of clear liquid diet and good bowel prep stressed with patient. Patient can hold off on taking Linzess for now. She can try taking Dulcolax tablets instead if helpful. Patient was encouraged to increase fluid intake and activity to promote better bowel motility. I will see patient after the procedure, sooner on as needed basis. Patient is agreeable to this plan and verbalizes understanding of instructions. She was given opportunity to ask questions and all questions answered. Thank you for allowing me participate in her care Medications: New pantoprazole 40 mg PO DAILY 30 tabs 3RF bisacodyl (Dulcolax (bisacodyl)) take 4 tabs at noon the day before your colonoscopy 20 mg (4 x 5 mg) PO ONCE 1 day 4 tabs 0RF Z12.11 - Encounter for screening for malignant neoplasm of colon polyethylene glycol 3350 (Miralax) As directed by gastroenterology department at [facility] 238 grams PO ONCE 238 grams 0RF Z12.11 - Encounter for screening for malignant neoplasm of colon Refilled sucralfate 1 g PO BEDTIME 30 tabs 4RF R19.7 - Diarrhea, unspecified Discontinued sennosides (Natural Senna Laxative) Discontinued Reason: Duplicate 17.2 mg (2 x 8.6 mg) PO BEDTIME 60 tabs 3RF constipation K59.00 - Constipation, unspecified Coding Level of Care Code Est Pt Level 4 (14502) Diagnoses Gastroesophageal reflux disease without esophagitis K21.9 Esophagitis presence: without esophagitis Irritable bowel syndrome with constipation K58.1 Irritable bowel syndrome type: with constipation Chronic idiopathic constipation K59.04 Screen for colon cancer Z12.11 Time Spent (min) 35 Comment 25 minutes spent with patient and additional 10 minutes spent reviewing her records
== END 2023-10-29 11:16 | disposition home or self-care (01) ==
PROVIDERS: PCP Family Medicine; Visit Provider Nurse Practitioner Family
DX: K21.9 Gastro-esophageal reflux disease without esophagitis (principal); K58.1 Irritable bowel syndrome with constipation; K59.04 Chronic idiopathic constipation; Z12.11 Encounter for screening for malignant neoplasm of colon
CPT/HCPCS: 99214

== ENCOUNTER → 2023-10-29 10:03 | Outpatient (BNVA) | payer MEDICAID, SELFPAY | PROVIDERS: PCP Family Medicine; Visit Provider Nurse Practitioner Family | DX: Z12.11 Encounter for screening for malignant neoplasm of colon (principal); K21.9 Gastro-esophageal reflux disease without esophagitis; K58.1 Irritable bowel syndrome with constipation; K59.04 Chronic idiopathic constipation | CPT/HCPCS: 99212 ==

== ENCOUNTER 2023-12-09 13:58 | Outpatient (REF) | payer OTHER, SELFPAY ==
--- NOTE | ~2023-12-09 | XR_ITS ---
EXAMINATION: XR ANKLE, LEFT CLINICAL INFORMATION: Closed fracture of the left ankle with healing. COMPARISON: MR left ankle 09/04/2023, radiographs left ankle 07/12/2023 and 05/17/2023. TECHNIQUE: AP, lateral, and mortise views of the left ankle. FINDINGS: Healing fracture is noted on the dorsum of the talus with some mild cortical irregularity. The previously demonstrated calcaneal anterior process fracture cannot be appreciated on these plain film radiographs. There is some mild bilateral soft tissue swelling. No acute fractures or dislocations. XR/XR ankle LT min 3V IMPRESSION: 1. Healing fracture on the dorsum of the talus. 2. The previously demonstrated calcaneal anterior process fracture cannot be appreciated on these plain film radiographs.
== END 2023-12-09 13:59 | disposition home or self-care (01) ==
LOC: HO.HHCX 13:58
PROVIDERS: Visit Provider Family Medicine
DX: S82.892D Other fracture of left lower leg, subsequent encounter for closed fracture with routine healing (principal); X58.XXXD Exposure to other specified factors, subsequent encounter
CPT/HCPCS: 73610

== ENCOUNTER 2023-12-20 13:22 | Outpatient (REF) | payer OTHER, SELFPAY ==
[2023-12-20 16:31] LABS: Blood Urea Nitrogen 15 mg/dL (9-16); Estimated Glomerular Filt Rate > 60
== END 2023-12-20 13:23 | disposition home or self-care (01) ==
LOC: HO.HHCL 13:22
PROVIDERS: Visit Provider Family Medicine
DX: E27.8 Other specified disorders of adrenal gland (principal)
CPT/HCPCS: 36415; 82565; 84520

== ENCOUNTER 2023-12-26 08:13 | Outpatient (REF) | payer OTHER, SELFPAY ==
--- NOTE | ~2023-12-26 | CT_ITS ---
EXAMINATION: CT ABDOMEN AND PELVIS WITHOUT AND WITH CONTRAST CLINICAL INFORMATION: Follow up adrenal nodule. COMPARISON: CT abdomen and pelvis 05/18/2020: There is a left adrenal nodule measuring 7 mm on axial image 23/3. TECHNIQUE: Multidetector volumetric imaging was performed of the abdomen and pelvis before and after the IV administration of 85 mL of Omnipaque 350 intravenous contrast. 2 sets of post contrast scans were performed, one 60-75 seconds after contrast and the other after a 10 minute delay. Sagittal and coronal reformatted images were obtained on the technologist's workstation. This CT examination was performed using dose optimization techniques as appropriate, variously including the following: *Automated exposure control *Adjustment of mA and/or kV according to patient size (this includes techniques or standardized protocols for targeted exams where dose is matched to indication/reason for exam; i.e. extremities or head) *Use of iterative reconstruction technique DLP: 776.00 mGy-cm FINDINGS: LUNG BASES: The visualized lung bases are unremarkable. LIVER, GALLBLADDER, AND BILIARY TREE: The liver is normal in size, shape, and attenuation. No focal hepatic lesion or biliary ductal dilatation is present. Status post cholecystectomy. PANCREAS: Unremarkable. SPLEEN: Unremarkable. ADRENAL GLANDS: There is a 1.4 cm left adrenal nodule that measures around 0 Hounsfield units consistent with a benign adenoma. By my measurements, this appears the same size compared to prior (3:32 compare prior 4:182). Despite findings consistent with a benign adenoma on the noncontrast imaging, contrast was administered. Immediate postcontrast attenuation was 83 Hounsfield units with 10 minute delayed Hounsfield units of 37 HU. Absolute as well as relative washout are both 55.4%. Absolute washout less than 60% is indeterminate. However, the low pre-contrast attenuation is suggestive of an adenoma. Relative washout of 40% or higher is consistent with an adenoma. The right adrenal gland appears normal. KIDNEYS AND URETERS: The kidneys are normal in size, shape, and attenuation aside from an area of cortical scarring at the upper pole of the right kidney laterally. There is a 3 mm nonobstructing calculus seen in the mid right kidney. No hydronephrosis, hydroureter, or additional calculi seen. No perinephric stranding. BLADDER: Unremarkable. GASTROINTESTINAL TRACT: Visualized bowel unremarkable. ABDOMINAL WALL: No significant hernia is appreciated. LYMPH NODES: Normal. VASCULAR: Unremarkable. PELVIS: Unremarkable. OSSEOUS STRUCTURES: Degenerative changes are present at L5-S1. CT/CT abdomen pelvis wo/w IV con IMPRESSION: 1. The left adrenal nodule is unchanged in size and has imaging characteristics consistent with a benign adenoma. 2. Incidental note made of cholecystectomy, right renal scarring and nonobstructing 3 mm right renal calculus. Fleischner guidelines were followed.
[2023-12-26] MEDS: iohexoL 350 MG/ML 100 ML INFUS..BTL IV (10:51)
== END 2023-12-26 08:14 | disposition home or self-care (01) ==
LOC: HO.CT 08:13
PROVIDERS: PCP Family Medicine; Visit Provider Family Medicine
DX: E27.8 Other specified disorders of adrenal gland (principal)
CPT/HCPCS: 74178; Q9967

== ENCOUNTER 2023-12-26 16:08 | Outpatient (REF) | payer OTHER, SELFPAY ==
[2023-12-26 17:32] LABS: Leukocytes Stool Qualitative NEGATIVE (NEGATIVE)
== END 2023-12-26 16:09 | disposition home or self-care (01) ==
LOC: HO.HHCLNP 16:08
PROVIDERS: Visit Provider Family Medicine
DX: R19.7 Diarrhea, unspecified (principal)
CPT/HCPCS: 87507; 89055

== ENCOUNTER 2024-01-06 17:12 | Outpatient (REF) | payer OTHER, SELFPAY ==
[2024-01-07 09:54] LABS: Adenovirus F 40/41 Not Detected (Not Detect.); Astrovirus Not Detected (Not Detect.); Campylobacter Not Detected (Not Detect.); Cryptosporidium Not Detected (Not Detect.); Cyclospora cayetanensis Not Detected (Not Detect.); E. coli EAEC Not Detected (Not Detect.); E. coli EPEC Not Detected (Not Detect.); E. coli ETEC Not Detected (Not Detect.); E. coli STEC Not Detected (Not Detect.); Entamoeba histolytica Not Detected (Not Detect.); Giardia lamblia Not Detected (Not Detect.); Norovirus GI/GII Not Detected (Not Detect.); Plesiomonas shigelloides Not Detected (Not Detect.); Rotavirus A Not Detected (Not Detect.); Salmonella Not Detected (Not Detect.); Sapovirus Not Detected (Not Detect.); Shigella sp./EIEC Not Detected (Not Detect.); Vibrio Not Detected (Not Detect.); Vibrio Cholerae Not Detected (Not Detect.); Yersinia enterocolitica Not Detected (Not Detect.)
== END 2024-01-06 17:13 | disposition home or self-care (01) ==
LOC: HO.HHCLNP 17:12
PROVIDERS: Visit Provider Family Medicine
DX: R19.7 Diarrhea, unspecified (principal)
CPT/HCPCS: 87507

== ENCOUNTER 2024-02-12 07:48 | Outpatient (REF) | payer OTHER, SELFPAY ==
--- NOTE | ~2024-02-12 | US_ITS ---
EXAMINATION: US RETROPERITONEAL LIMITED (RENAL ONLY) CLINICAL INFORMATION: Calculus of kidney. COMPARISON: CT abdomen and pelvis 12/26/2023. Renal ultrasound 02/05/2023 and 08/14/2022. TECHNIQUE: Real-time imaging of the kidneys. FINDINGS: RIGHT KIDNEY: 10.5 x 4.2 x 5.6 cm (SAG x AP x TRV). The kidney is normal in size, contour, and echogenicity. Renal cortical thickness is normal. No renal calculi or hydronephrosis. 5 mm nonobstructing calculus in the mid to upper right kidney similar to recent CT scan. LEFT KIDNEY: 9.7 x 5.6 x 4.6 cm (SAG x AP x TRV). The kidney is normal in size, contour, and echogenicity. Renal cortical thickness is normal. No calculi or focal parenchymal lesions. No hydronephrosis. US/US renal BI IMPRESSION: 5 mm nonobstructing calculus in the mid to upper right kidney. No hydronephrosis.
== END 2024-02-12 07:49 | disposition home or self-care (01) ==
LOC: HO.US 07:48
PROVIDERS: PCP Family Medicine; Visit Provider Urology
DX: N20.0 Calculus of kidney (principal)
CPT/HCPCS: 76775

== ENCOUNTER 2024-02-21 11:09 | Outpatient (AMB) | payer OTHER, SELFPAY ==
--- NOTE | 2024-02-21 12:02 | MHC.OFFVIS ---
Intake Visit Reasons: 1Y US (set) Intake Note: Patient is Present for Follow Up Ultrasound Urology Medication: Vitamin B6 Antibiotic Allergies: Penicillin Blood Thinners:none Patient reports that she has been in pain and discomfort for the past 2 weeks Allergies Penicillins [PENICILLINS] Allergy (Severe, Verified 04/01/24 09:06) RASH HPI Comments Details: Tri is a pleasant [place]araguan-speaking female. She is is a patient of Dr Horn. She is seen for the following urologic conditions - nephrolithiasis Minimal issues with urination Discussed ultrasound which shows minimal stones Continue B6 reduced 50 mg Ultrasound with minimal evidence of stones Nephrolithiasis Longstanding Has had prior intervention with ESWL Intervention - 05/31 left ureteroscopy Imaging - 04/30 ultrasound left hydroureteronephrosis with distal left stone - 07/31 ultrasound 3 mm right - 03/01 renal ultrasound 3 mm right stone - 03/02 renal ultrasound question small stone right but not definitive Concurrent diagnosis includes IBS Therapeutic plan - prior recommendation for times prior to main meal as oxalate binder - imaging follow-up 6 months [facility] Medical History (Updated 04/09/24 @ 20:16 by Ayesha Donovan, [facility]) Diverticulosis Renal calculi Gastric varices Migraine headache Depression GERD (gastroesophageal reflux disease) Diabetes mellitus Adrenal nodule IBS (irritable bowel syndrome) HTN (hypertension) Hyperlipemia Surgical History History of surgery History of esophagogastroduodenoscopy (EGD) Hx of colonoscopy Hx of tubal ligation Hx of discectomy Family History Father Hx of type 1 diabetes mellitus History of epilepsy Mother Family history of high blood pressure Hx of cancer of uterus Social History Household Members Other:: daughter Housing: House Alcohol intake: never Patient Tobacco Use Status: Never used Tobacco Current occupational status: employed Current occupation: [employer]- right handed Sexual orientation: Straight/Heterosexual Gender identity: Female Female Reproductive History Menstrual Age of Menarche: 10 Review of Systems Const Denies chills and Denies fever(s) Card Reports no additional complaints and Denies syncope Resp Denies cough GI Denies abdominal pain and Denies heartburn Reports as per HPI and Denies change in libido Neuro Denies syncope Psych Denies change in libido Endo Denies change in libido Physical Exam Const General: cooperative, healthy appearing, comfortable and no acute distress Orientation/consciousness: patient oriented x3 HEENT Face and sinus: Yes normal facial exam Mouth: moist mucous membranes Neck Neck: Yes normal visual inspection, Yes full ROM and Yes trachea midline Chest Chest palpation & inspection: normal inspection of the chest Resp Effort & Inspection: normal respiratory effort, able to speak in complete sentences and no respiratory distress GI Inspection: Yes normal to inspection Back/Spine/Pelvis Cervical Spine: normal cervical lordosis Thoracic/Lumbar Spine: thoracic and lumbar spine normal to inspection Skin General skin exam: no rashes or lesions noted Neuro General: patient oriented x3, gait normal, tone normal and moves all extremities Extrem General: Yes normal to inspection and Yes capillary refill normal Assessment & Plan Assessment & Plan (1) Renal calculi: Code(s): N20.0 - Calculus of kidney Category: Medical (2) Urine incontinence: Code(s): R32 - Unspecified urinary incontinence Category: Medical Plan 12 month follow-up renal ultrasound Orders: Orders US renal BI 12 Months N20.0 - Calculus of kidney Patient Instructions: Imaging studies, laboratory and physical exam results were discussed and reviewed in detail. No major barriers to patient understanding were identified. An opportunity to ask questions regarding the treatment plan was provided. All questions were answered. The patient expressed understanding and agreement with the above treatment plan. The patient is aware they should contact our office by phone for worsening of their current condition or the appearance of new urologic symptoms. Compliance is encouraged with any medications and followup testing that is ordered. It is a privilege to participate in the urologic care of your patient. If you have any questions or concerns regarding treatment for the above conditions, or other urologic issues, please do not hesitate to contact me. The office telephone contact is [phone]. This note is constructed using voice recognition software. While every effort has been made to ensure accuracy clip loading machine feeder errors may have been included. Yours sincerely, Dr Red Cunha MD, [facility] - Urology Providers of Expert, Compassionate Care for the Genitourinary System Coding Level of Care Code Est Pt Level 3 (42019) Diagnoses Renal calculi N20.0 Urine incontinence R32
== END 2024-02-21 12:19 | disposition home or self-care (01) ==
PROVIDERS: PCP Family Medicine; Visit Provider Urology
DX: N20.0 Calculus of kidney (principal); R32 Unspecified urinary incontinence
CPT/HCPCS: 99213

== ENCOUNTER → 2024-02-21 11:09 | Outpatient (BNVA) | payer MEDICAID, SELFPAY | PROVIDERS: PCP Family Medicine; Visit Provider Urology | DX: N20.0 Calculus of kidney (principal); R32 Unspecified urinary incontinence | CPT/HCPCS: 99212 ==

== ENCOUNTER 2024-03-23 09:13 | Day surgery (SDC) | payer OTHER, SELFPAY ==
--- NOTE | 2024-03-20 09:21 | HO.ANESPROP2 ---
HPI - Anesthesia Eval Consult details Narrative: 53yo F for Upper Endoscopy and Colonoscopy Anesthesia Pre-Procedure Meds Is the patient on any of the following meds?: GLP1/DPP4 PMFSH Active Problems Active Problems: All Active Problems Avulsion fracture of talus (Acute) Atypical chest pain (Acute) Renal calculi (Acute) Urine incontinence (Acute) Bacterial vaginosis (Acute) Left ankle sprain (Acute) Cubital tunnel syndrome on right (Acute) Arthritis of carpometacarpal (CMC) joint of right thumb (Acute) Numbness and tingling in right hand (Acute) IBS (irritable bowel syndrome) (Acute) GERD (gastroesophageal reflux disease) (Acute) Well woman exam (Acute) Past Medical History Medical History Renal calculi Gastric varices Migraine headache Depression GERD (gastroesophageal reflux disease) Diabetes mellitus Adrenal nodule IBS (irritable bowel syndrome) HTN (hypertension) Hyperlipemia Family History Family History Father Hx of type 1 diabetes mellitus History of epilepsy Mother Family history of high blood pressure Hx of cancer of uterus Surgical History Surgical History History of surgery History of esophagogastroduodenoscopy (EGD) Hx of colonoscopy Hx of tubal ligation Hx of discectomy History of Problems with Anesthesia: No Social History Social History Household Members Other:: daughter Housing: House Alcohol intake: never Patient Tobacco Use Status: Never used Tobacco Current occupational status: employed Current occupation: [employer]- right handed Sexual orientation: Straight/Heterosexual Gender identity: Female Meds Allergies Allergy/AdvReac Type Severity Reaction Status Date / Time Penicillins [PENICILLINS] Allergy Severe RASH Verified 02/21/24 12:03 Home Medications ?Medication ?Instructions ?Recorded ?Confirmed ?Last Taken ?Type amitriptyline 150 mg tablet 150 mg PO BEDTIME 09/21/20 02/26/23 Unknown History gabapentin 400 mg capsule 400 mg PO TID 09/21/20 02/26/23 Unknown History atorvastatin 10 mg tablet 10 mg PO BEDTIME 03/01/21 02/26/23 Unknown History propranolol 120 mg capsule,24 120 mg PO DAILY 03/01/21 02/26/23 Unknown History hr,extended release metformin 500 mg tablet,extended 500 mg PO QPM 08/09/21 02/26/23 Unknown History release 24 hr ergocalciferol (vitamin D2) 1,250 1,250 mcg PO QWEEK 10/02/21 02/26/23 Unknown History mcg (50,000 unit) capsule (Vitamin D2) loratadine 10 mg tablet 10 mg PO DAILY 11/21/21 02/26/23 Unknown History dulaglutide 0.75 mg/0.5 mL mg subcut 10/29/23 03/16/24 History subcutaneous pen injector (Trulicity) metformin 500 mg tablet 500 mg PO DAILY 02/21/24 Unknown History Assessment and Plan Assessment Anesthesia Assessment: Chart Reviewed Final Anesthetic Review History of Problems with Anesthesia: No
[2024-03-23 09:16] VITALS: BMI 30.3
[2024-03-23 09:52] VITALS: BP 121/74; PULSE 73; RESP 20; TEMP 36.9; O2SAT 96
[2024-03-23 09:59] LABS: Glucose, Whole Blood 109 mg/dL (60-115)
[2024-03-23] MEDS: Lactated Ringers 1,000 ML 100 ML IVCONT (10:10)
--- NOTE | 2024-03-23 10:15 | MHC.SHP ---
Pre-Procedural Eval Section A - 24 Hr Update-Section A only Date of Service: 03/23/24 The patient is an INPATIENT: No The patient has been examined within 24 hours of the surgical procedure. The History & Physical has been completed within 30 days and I have reviewed it.: No Section B - Complete if H&P > 30 days Chief Complaint: screening, FH of colon cancer, diarrhea Relevant Family History (Specify if Yes): Yes Relevant Social History: None Present Medications: see Short Stay Collaborative assessment Medical History: Significant History (Renal calculi Gastric varices Migraine headache Depression GERD (gastroesophageal reflux disease) Diabetes mellitus Adrenal nodule IBS (irritable bowel syndrome) HTN (hypertension) Hyperlipemia) History of Previous Operations: Relevant previous surgery/procedure and date(s) (History of esophagogastroduodenoscopy (EGD) Hx of colonoscopy Hx of discectomy Hx of tubal ligation) Allergies: Allergies Allergy/AdvReac Type Severity Reaction Status Date / Time Penicillins [PENICILLINS] Allergy Severe RASH Verified 02/21/24 12:03 Review of Systems Sugical H&P ROS: Negative: Constitution, Cardiovascular and Respiratory and Yes, Specify: Gastrointestinal (post prandial diarrhea) Exam Surgical H&P Exam: Normal: Heart, Normal: Lungs, Normal: Extremities and Normal: Abdomen Plan Diagnosis/Plan: Unchanged I have reviewed the history and physical and performed a pertinent physical examination on my patient. No changes have occurred unless specified. Time Spent With Patient Time: Total time managing care of this patient today ____ minutes.
--- NOTE | 2024-03-23 10:46 | HO.ANESPROP2 ---
[facility] Active Problems Active Problems: All Active Problems Avulsion fracture of talus (Acute) Atypical chest pain (Acute) Renal calculi (Acute) Urine incontinence (Acute) Bacterial vaginosis (Acute) Left ankle sprain (Acute) Cubital tunnel syndrome on right (Acute) Arthritis of carpometacarpal (CMC) joint of right thumb (Acute) Numbness and tingling in right hand (Acute) IBS (irritable bowel syndrome) (Acute) GERD (gastroesophageal reflux disease) (Acute) Well woman exam (Acute) Past Medical History Medical History Renal calculi Gastric varices Migraine headache Depression GERD (gastroesophageal reflux disease) Diabetes mellitus Adrenal nodule IBS (irritable bowel syndrome) HTN (hypertension) Hyperlipemia Functional capacity: independent ambulation Family History Family History Father Hx of type 1 diabetes mellitus History of epilepsy Mother Family history of high blood pressure Hx of cancer of uterus Family history of problems with anesthesia: No Surgical History Surgical History History of surgery History of esophagogastroduodenoscopy (EGD) Hx of colonoscopy Hx of tubal ligation Hx of discectomy History of Problems with Anesthesia: No Social History Social History Household Members Other:: daughter Housing: House Alcohol intake: never Patient Tobacco Use Status: Never used Tobacco Are you DNR?: No Advance Directives: No Advance Directives Information Provided: Yes Current occupational status: employed 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 Sexual orientation: Straight/Heterosexual Gender identity: Female Meds Allergies Allergy/AdvReac Type Severity Reaction Status Date / Time Penicillins [PENICILLINS] Allergy Severe RASH Verified 02/21/24 12:03 Active Medications: Current Medications Albuterol Sulfate (Albuterol Sulfate (0.083%) 2.5 Mg/3 Ml Vial.Neb) 2.5 mg INHALE ONCE PRN PRN Reason: Shortness of Breath/Wheezing Lactated Ringer's (Lr) 1,000 mls @ 100 mls/hr IVCONT .Q10H MIRYAM Last Admin: 03/23/24 10:10 Dose: 100 mls/hr Home Medications ?Medication ?Instructions ?Recorded ?Confirmed ?Last Taken ?Type amitriptyline 150 mg tablet 150 mg PO BEDTIME 09/21/20 02/26/23 Unknown History gabapentin 400 mg capsule 400 mg PO TID 09/21/20 02/26/23 Unknown History atorvastatin 10 mg tablet 10 mg PO BEDTIME 03/01/21 02/26/23 Unknown History propranolol 120 mg capsule,24 120 mg PO DAILY 03/01/21 02/26/23 Unknown History hr,extended release metformin 500 mg tablet,extended 500 mg PO QPM 08/09/21 02/26/23 Unknown History release 24 hr ergocalciferol (vitamin D2) 1,250 1,250 mcg PO QWEEK 10/02/21 02/26/23 Unknown History mcg (50,000 unit) capsule (Vitamin D2) loratadine 10 mg tablet 10 mg PO DAILY 11/21/21 02/26/23 Unknown History dulaglutide 0.75 mg/0.5 mL mg subcut 10/29/23 03/16/24 History subcutaneous pen injector (Trulicity) metformin 500 mg tablet 500 mg PO DAILY 02/21/24 Unknown History Exam Height,Weight and Vital Signs: Height 5 ft Weight 70.307 kg Last Vital Signs Temp 98.4 F 03/23/24 09:52 Pulse 73 03/23/24 09:52 Resp 20 03/23/24 09:52 BP 121/74 03/23/24 09:52 Pulse Ox 96 03/23/24 09:52 O2 Del Method Room Air 03/23/24 09:52 Pertinent Lab Results Pertinent Lab Results: Laboratory Tests 03/23/24 09:57 POC Glucose 109 Airway Mallampati Class: II TM Dist: >3cm Neck ROM: Full Heart: RRR Assessment and Plan Assessment Anesthesia Assessment: Anesthesia Plan Discussed Final Anesthetic Review Family History of Problems with Anesthesia: No History of Problems with Anesthesia: No ASA Class: II Final Preanesthetic Review: Meds/Allgs Chart Reviewed, Consent Obtained/Reviewed and Anes Risks/Benef Reviewed Patient Risk: Low Procedure Risk: Low Anesthetic Plan Anesthetic Plan: MAC: Disposition: Standard PACU
--- NOTE | 2024-03-23 11:14 | HO.ANESPROP2 ---
[facility] Active Problems Active Problems: All Active Problems Avulsion fracture of talus (Acute) Atypical chest pain (Acute) Renal calculi (Acute) Urine incontinence (Acute) Bacterial vaginosis (Acute) Left ankle sprain (Acute) Cubital tunnel syndrome on right (Acute) Arthritis of carpometacarpal (CMC) joint of right thumb (Acute) Numbness and tingling in right hand (Acute) IBS (irritable bowel syndrome) (Acute) GERD (gastroesophageal reflux disease) (Acute) Well woman exam (Acute) Past Medical History Medical History Renal calculi Gastric varices Migraine headache Depression GERD (gastroesophageal reflux disease) Diabetes mellitus Adrenal nodule IBS (irritable bowel syndrome) HTN (hypertension) Hyperlipemia Functional capacity: independent ambulation Family History Family History Father Hx of type 1 diabetes mellitus History of epilepsy Mother Family history of high blood pressure Hx of cancer of uterus Family history of problems with anesthesia: No Surgical History Surgical History History of surgery History of esophagogastroduodenoscopy (EGD) Hx of colonoscopy Hx of tubal ligation Hx of discectomy History of Problems with Anesthesia: No Social History Social History Household Members Other:: daughter Housing: House Alcohol intake: never Patient Tobacco Use Status: Never used Tobacco Are you DNR?: No Advance Directives: No Advance Directives Information Provided: Yes Current occupational status: employed 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 Sexual orientation: Straight/Heterosexual Gender identity: Female Meds Allergies Allergy/AdvReac Type Severity Reaction Status Date / Time Penicillins [PENICILLINS] Allergy Severe RASH Verified 02/21/24 12:03 Active Medications: Current Medications Albuterol Sulfate (Albuterol Sulfate (0.083%) 2.5 Mg/3 Ml Vial.Neb) 2.5 mg INHALE ONCE PRN PRN Reason: Shortness of Breath/Wheezing Lactated Ringer's (Lr) 1,000 mls @ 100 mls/hr IVCONT .Q10H MIRYAM Last Admin: 03/23/24 10:10 Dose: 100 mls/hr Home Medications ?Medication ?Instructions ?Recorded ?Confirmed ?Last Taken ?Type amitriptyline 150 mg tablet 150 mg PO BEDTIME 09/21/20 02/26/23 Unknown History gabapentin 400 mg capsule 400 mg PO TID 09/21/20 02/26/23 Unknown History atorvastatin 10 mg tablet 10 mg PO BEDTIME 03/01/21 02/26/23 Unknown History propranolol 120 mg capsule,24 120 mg PO DAILY 03/01/21 02/26/23 Unknown History hr,extended release metformin 500 mg tablet,extended 500 mg PO QPM 08/09/21 02/26/23 Unknown History release 24 hr ergocalciferol (vitamin D2) 1,250 1,250 mcg PO QWEEK 10/02/21 02/26/23 Unknown History mcg (50,000 unit) capsule (Vitamin D2) loratadine 10 mg tablet 10 mg PO DAILY 11/21/21 02/26/23 Unknown History dulaglutide 0.75 mg/0.5 mL mg subcut 10/29/23 03/16/24 History subcutaneous pen injector (Trulicity) metformin 500 mg tablet 500 mg PO DAILY 02/21/24 Unknown History Exam Height,Weight and Vital Signs: Height 5 ft Weight 70.307 kg Last Vital Signs Temp 98.4 F 03/23/24 09:52 Pulse 73 03/23/24 09:52 Resp 20 03/23/24 09:52 BP 121/74 03/23/24 09:52 Pulse Ox 96 03/23/24 09:52 O2 Del Method Room Air 03/23/24 09:52 Pertinent Lab Results Pertinent Lab Results: Laboratory Tests 03/23/24 09:57 POC Glucose 109 Airway Mallampati Class: II TM Dist: >3cm Neck ROM: Full Heart: RRR Lungs: CTA Assessment and Plan Assessment Anesthesia Assessment: Anesthesia Plan Discussed Final Anesthetic Review Family History of Problems with Anesthesia: No History of Problems with Anesthesia: No NPO: Yes ASA Class: III Final Preanesthetic Review: Meds/Allgs Chart Reviewed, Consent Obtained/Reviewed and Anes Risks/Benef Reviewed Patient Risk: Intermediate Procedure Risk: Low Anesthetic Plan Anesthetic Plan: MAC: Disposition: Standard PACU
--- NOTE | 2024-03-23 11:48 | HO.OPN-COLON ---
Colonoscopy Operative Note Operative Note Date of Service: 03/23/24 Narrative: FLEXIBLE TRANSORAL UPPER GASTROINTESTINAL ENDOSCOPY WITH BIOPSIES AND COLONOSCOPY TILL CECUM WITH BIOPSIES Pre-op diagnosis: Colon cancer screening, FH of colon versus endometrial cancer, postprandial bloating and diarrhea Post-op diagnosis: GERD, Gastritis, Gastric polyp, Diverticulosis, hemorrhoids Endoscopist:? Loi Barbosa MD Anesthesia:?MAC UPPER ENDOSCOPY Consent: Indications for the procedure and potential complications of bleeding, perforation, reaction to medications and missed diagnosis were discussed with the patient and informed consent was obtained. Instrument: Olympus GIF H 190 mid size upper endoscope Monitoring: Vital signs and clinical assessment, continuous EKG monitoring, Pulse oximetry, Carbon Dioxide monitoring and blood pressure monitoring were done throughout the procedure. Procedure: The patient was placed in the left lateral decubitis position and pre-procedure medications were administered and a bite block was placed. The endoscope was inserted into the mouth and advanced under direct vision to the third part of duodenum. A careful inspection was made as the upper endoscope was withdrawn including a retroflexed examination of the proximal stomach; Findings and interventions are described below. Findings: Larynx: Normal Esophagus: GE junction at 38 cms. No esophagitis or Urias's. Stomach: A few 4-5 mm benign appearing polyps in the gastric body - biopsied. Moderate diffuse gastric erythema - biopsies were obtained from the body and antrum. Grade 2 flap valve and possible para-esophageal hernia on retroflexed examination of the cardia. Duodenum: Normal bulb and descending duodenum Biopsies were obtained from descending duodenum to check for celiac sprue Intervention: Biopsies as noted above COLONOSCOPY PROCEDURE NOTE Instrument: Olympus PCF H 190 L variable stiffness pediatric colonoscope Monitoring: Vital signs and clinical assessment, intermittent blood pressure monitoring, continuous EKG monitoring, Pulse oximetry and Carbon Dioxide monitoring were done throughout the procedure. Please see anesthesia flowsheet. Colon withdrawl time was 21 minutes. Procedure: The patient was placed in the left lateral decubitis position and pre-procedure medications were administered. After a digital rectal examination of the ano-rectum, the video colonoscope was inserted into the rectum and advanced through the colon to the cecum. The colonoscope was slowly withdrawn in a retrograde panoramic fashion and the colon mucosa was carefully examined including a retroflexed view of the rectum. Findings and interventions are described below. Procedure Difficulty: LLQ pressure was applied to intubate the cecum Findings: Terminal Ileum: Not evaluated Cecum: Normal Ascending Colon: Moderate diverticulosis throughout the entire colon Transverse Colon: Moderate diverticulosis throughout the entire colon Descending Colon: Moderate diverticulosis throughout the entire colon Sigmoid Colon: Severe diverticulosis with luminal narrowing Rectum: Normal Ano-rectum: Small internal hemorrhoids Colon preparation: Good after copious irrigation. Sigmoid colon was not well visualized due to excessive spasm [place] Bowel Preparation Scale Right colon; 2 Transverse colon: 2 Left colon; 2 (0 = Unprepared colon segment with mucosa not seen due to solid stool that cannot be cleared. 1 = Portion of mucosa of the colon segment seen, but other areas of the colon segment not well seen due to staining, residual stool and/or opaque liquid. 2 = Minor amount of residual staining, small fragments of stool and/or opaque liquid, but mucosa of colon segment seen well. 3 = Entire mucosa of colon segment seen well with no residual staining, small fragments of stool or opaque liquid) Impression and Post Procedure Diagnosis: Endoscopy Findings: STOMACH: A few 4-5 mm benign appearing polyps in the gastric body - biopsied. Moderate diffuse gastric erythema - biopsies were obtained from the body and antrum. DUODENUM: Normal - biopsied to check for celiac sprue Colonoscopy Findings: No polyps were detected Random biopsies were obtained from right and left colon to check for microscopic colitis Moderate diverticulosis seen in the entire colon Small hemorrhoids on retroflexed exam. Plan: Pt has a FU appointment on 04/01/24 with Inga Donovan NP Repeat Colonoscopy in 5 years if colon biopsies are normal (due to ? FH of colon cancer in her Mom) and since sigmoid colon was not well visualized. Above findings were reviewed with the patient and relevant handouts were given and the discharge area.
[2024-03-23 12:27] VITALS: BP 121/79; PULSE 72; RESP 16; TEMP 36.3; O2SAT 98
[2024-03-23 12:32] VITALS: BP 129/80; PULSE 71; RESP 16; O2SAT 99
[2024-03-23 12:37] VITALS: BP 113/66; PULSE 74; RESP 16; O2SAT 99
[2024-03-23 12:42] VITALS: BP 136/81; PULSE 67; RESP 18; TEMP 36.8; O2SAT 96
--- NOTE | 2024-03-23 13:21 | HO.POSTANES ---
Post Anesthesia Evaluation Post Anesthesia Evaluation Date of Service: 03/23/24 Vital Signs: Vital Signs Temp Pulse Resp BP Pulse Ox O2 Del Method 03/23/24 12:42 98.2 F 67 18 136/81 96 Room Air 03/23/24 12:37 74 16 113/66 99 Room Air 03/23/24 12:32 71 16 129/80 99 Room Air 03/23/24 12:27 97.3 F 72 16 121/79 98 Room Air 03/23/24 09:52 98.4 F 73 20 121/74 96 Room Air Anesthesia: Monitored Mental Status: Awake Pain Control: Satisfactory Nausea/Vomiting: None Hydration: Adequate Anesthesia-Related Issues: No Anes. Related Issues
== END 2024-03-23 13:44 | disposition home or self-care (01) ==
PROVIDERS: PCP Family Medicine; Visit Provider Internal Medicine Gastroenterology
PROC: (CPT 43239; principal; 2024-03-23 10:50)
DX: K31.7 Polyp of stomach and duodenum (principal); K29.60 Other gastritis without bleeding; K21.9 Gastro-esophageal reflux disease without esophagitis; Z12.11 Encounter for screening for malignant neoplasm of colon; K63.89 Other specified diseases of intestine; K57.30 Diverticulosis of large intestine without perforation or abscess without bleeding; K64.8 Other hemorrhoids; Z80.0 Family history of malignant neoplasm of digestive organs; E11.9 Type 2 diabetes mellitus without complications; I10 Essential (primary) hypertension; E78.5 Hyperlipidemia, unspecified; Z79.02 Long term (current) use of antithrombotics/antiplatelets; Z79.899 Other long term (current) drug therapy; Z79.84 Long term (current) use of oral hypoglycemic drugs
CPT/HCPCS: 43239; 45380; 82947; 88305; 88313; 88342; J2704

== ENCOUNTER → 2024-03-23 09:13 | Outpatient (BNV) | payer OTHER, SELFPAY | PROVIDERS: PCP Family Medicine; Visit Provider Internal Medicine Gastroenterology | DX: Z12.11 Encounter for screening for malignant neoplasm of colon (principal); Z80.0 Family history of malignant neoplasm of digestive organs; R19.7 Diarrhea, unspecified; K63.89 Other specified diseases of intestine; K21.9 Gastro-esophageal reflux disease without esophagitis; K29.70 Gastritis, unspecified, without bleeding; K31.7 Polyp of stomach and duodenum | CPT/HCPCS: 43239; 45380 ==

== ENCOUNTER 2024-04-01 08:58 | Outpatient (AMB) | payer OTHER, SELFPAY ==
--- NOTE | 2024-04-01 09:05 | A.OFFVIS_ITS ---
Vital Signs 04/01/24 09:07 Height 5 ft Weight 155 lb 10.342 oz BMI 30.4 BP 114/84 Blood Pressure Location Rt brachial Position Sitting Pulse 66 Pulse Source Pulse Oximeter Pulse Oximetry (%) 97 Oxygen Delivery Method Room Air Intake Visit Reasons: s/p double Intake Note: Tri presents in office today for a scheduled post op FUV. CC; Pt denies any new sx or concerns since the procedure. Pt states that they are still dealing with chronic sx including the GERD sx and mild abdominal pain/discomfort. [employer] Developer Required: Yes [employer] Developer Services: [employer] Developer Offered & Declined Allergies Penicillins [PENICILLINS] Allergy (Severe, Verified 04/01/24 09:06) RASH HPI HPI s/p double: Details: LAST VISIT GERD (gastroesophageal reflux disease) IBS (irritable bowel syndrome) Chronic idiopathic constipation Screen for colon cancer Plan Patient will continue taking pantoprazole every morning. Discussed with patient avoiding dietary triggers and late night snacking. Patient reports postprandial abdominal bloating and occasional loose stools. I will have her try low FODMAP diet. List of food recommended as well as list of food to avoid given to patient. Patient will be sent for upper endoscopy when going for colonoscopy to rule out gastritis, esophagitis, Schatzki ring, Urias's, H pylori. What to expect before during and after the procedure discussed with patient. The importance of clear liquid diet and good bowel prep stressed with patient. Patient can hold off on taking Linzess for now. She can try taking Dulcolax tablets instead if helpful. Patient was encouraged to increase fluid intake and activity to promote better bowel motility. I will see patient after the procedure, sooner on as needed basis. Patient is agreeable to this plan and verbalizes understanding of instructions. She was given opportunity to ask questions and all questions answered. ? Thank you for allowing me participate in her care Medications New pantoprazole 40 mg PO DAILY 30 tabs 3RF bisacodyl (Dulcolax (bisacodyl)) take 4 tabs at noon the day before your colonoscopy 20 mg (4 x 5 mg) PO ONCE 1 day 4 tabs 0RF Z12.11 polyethylene glycol 3350 (Miralax) As directed by gastroenterology department at [facility] 238 grams PO ONCE 238 grams 0RF Z12.11 Refilled sucralfate 1 g PO BEDTIME 30 tabs 4RF R19.7 Discontinued sennosides (Natural Senna Laxative) Discontinued Reason: Duplicate 17.2 mg (2 x 8.6 mg) PO BEDTIME 60 tabs 3RF constipation K59.00 UPPER ENDOSCOPY AND COLONOSCOPY Endoscopy Findings: Larynx: Normal Esophagus: GE junction at 38 cms. No esophagitis or Urias's. Stomach: A few 4-5 mm benign appearing polyps in the gastric body - biopsied. Moderate diffuse gastric erythema - biopsies were obtained from the body and antrum. Grade 2 flap valve and possible para-esophageal hernia on retroflexed examination of the cardia. Duodenum: Normal bulb and descending duodenum Biopsies were obtained from descending duodenum to check for celiac sprue Colonoscopy Findings: Terminal Ileum: Not evaluated Cecum: Normal Ascending Colon: Moderate diverticulosis throughout the entire colon Transverse Colon: Moderate diverticulosis throughout the entire colon Descending Colon: Moderate diverticulosis throughout the entire colon Sigmoid Colon: Severe diverticulosis with luminal narrowing Rectum: Normal Ano-rectum: Small internal hemorrhoids Colon preparation: Good after copious irrigation. Sigmoid colon was not well visualized due to excessive spasm [place] Bowel Preparation Scale Right colon; 2 Transverse colon: 2 Left colon; 2 (0 = Unprepared colon segment with mucosa not seen due to solid stool that cannot be cleared. 1 = Portion of mucosa of the colon segment seen, but other areas of the colon segment not well seen due to staining, residual stool and/or opaque liquid. 2 = Minor amount of residual staining, small fragments of stool and/or opaque liquid, but mucosa of colon segment seen well. 3 = Entire mucosa of colon segment seen well with no residual staining, small fragments of stool or opaque liquid) Impression and Post Procedure Diagnosis: Endoscopy Findings: STOMACH: A few 4-5 mm benign appearing polyps in the gastric body - biopsied. Moderate diffuse gastric erythema - biopsies were obtained from the body and antrum. DUODENUM: Normal - biopsied to check for celiac sprue Colonoscopy Findings: No polyps were detected Random biopsies were obtained from right and left colon to check for microscopic colitis Moderate diverticulosis seen in the entire colon Small hemorrhoids on retroflexed exam. Plan: Repeat Colonoscopy in 5 years if colon biopsies are normal (due to ? FH of colon cancer in her Mom) and since sigmoid colon was not well visualized. PATHOLOGY RESULTS Diagnosis A. Small bowel, biopsy: Duodenal mucosa within normal limits. B. Stomach, antrum, biopsy: Antral-type mucosa with moderate chronic, focally active, inflammation and intestinal metaplasia; negative for dysplasia; no Helicobacter organisms seen. C. Stomach, polyp, biopsy: Hyperplastic mucosal polyp with background mild chronic inactive inflammation; no Helicobacter organisms seen. D. Stomach, body, biopsy: Oxyntic mucosa with mild chronic inactive inflammation; no Helicobacter organisms seen. E. Colon, right, biopsy: Mild melanosis coli; otherwise colonic mucosa within normal limits; negative for microscopic colitis. F. Colon, left, biopsy: Colonic mucosa within normal limits; negative for microscopic colitis. TODAY'S VISIT Patient is here today for follow-up and to discuss upper endoscopy and colonoscopy results. Patient denies any ill effects from the prep, anesthesia or procedure itself. Patient reports that she has been feeling fairly well, however she continues to have epigastric pain postprandially and postprandial abdominal bloating. Patient reports that Linzess was causing her issues and she was not able to take it. Diarrhea several times a day after taking Linzess. Upper endoscopy and colonoscopy results discussed with patient. Biopsy results discussed. Severe diverticulosis seen in the entire colon with narrowing at sigmoid colon. Patient reports that she is taking pantoprazole every morning and does not feel like the symptoms are getting better. Patient did not change her diet. Patient denies melena, hematochezia. Denies dyspepsia, dysphagia or odynophagia. [facility] Medical History (Updated 04/09/24 @ 20:16 by Ayesha Donovan [facility]-) Diverticulosis Renal calculi Gastric varices Migraine headache Depression GERD (gastroesophageal reflux disease) Diabetes mellitus Adrenal nodule IBS (irritable bowel syndrome) HTN (hypertension) Hyperlipemia Surgical History History of surgery History of esophagogastroduodenoscopy (EGD) Hx of colonoscopy Hx of tubal ligation Hx of discectomy Family History Father Hx of type 1 diabetes mellitus History of epilepsy Mother Family history of high blood pressure Hx of cancer of uterus Social History Household Members Other:: daughter Housing: House Alcohol intake: never Patient Tobacco Use Status: Never used Tobacco Current occupational status: employed Current occupation: [employer]- right handed Sexual orientation: Straight/Heterosexual Gender identity: Female Female Reproductive History Menstrual Age of Menarche: 10 Review of Systems Const Denies weight gain and Denies weight loss ENT Reports no additional complaints, Denies dysphagia and Denies odynophagia Card Reports no additional complaints Resp Reports no additional complaints GI Denies abdominal pain, Denies belching, Denies melena, Reports bloating, Denies change in bowel habits, Reports constipation, Denies dysphagia, Denies excessive flatus, Denies dyspepsia, Reports heartburn, Denies diarrhea, Reports loose stools, Denies nausea, Denies odynophagia and Denies vomiting Reports no additional complaints Musc Reports no additional complaints Neuro Reports no additional complaints Psych Reports no additional complaints Endo Reports no additional complaints Physical Exam Vital Signs: Last Vital Signs Pulse 66 04/01/24 09:07 BP 114/84 04/01/24 09:07 Pulse Ox 97 04/01/24 09:07 Oxygen Delivery Method Room Air 04/01/24 09:07 BMI result Body Mass Index 30.4 Const General: healthy appearing and no acute distress Nutritional Appearance: obese Orientation/consciousness: patient oriented x3 Resp Effort & Inspection: normal respiratory effort, able to speak in complete sentences, no tracheal deviation and symmetric chest movement Auscultation: clear to auscultation bilaterally Cardio Rate: regular rate GI Inspection: Yes normal to inspection, No distended and Yes obesity Palpation (GI): Soft to palpation, not firm, nontender and No hepatosplenomegaly present Auscultation: normal bowel sounds General: Yes no CVA tenderness Back/Spine/Pelvis Back: no CVA tenderness Skin General skin exam: elasticity normal, turgor normal and dry skin Neuro General: patient oriented x3 Psych Appearance: grossly normal Mental Status: mental status grossly normal Assessment & Plan Assessment & Plan (1) GERD (gastroesophageal reflux disease): Code(s): K21.9 - Gastro-esophageal reflux disease without esophagitis Category: Medical Qualifiers: Esophagitis presence: without esophagitis Qualified Code(s): K21.9 - Gastro-esophageal reflux disease without esophagitis (2) IBS (irritable bowel syndrome): Code(s): K58.9 - Irritable bowel syndrome without diarrhea Category: Medical Qualifiers: Irritable bowel syndrome type: with constipation Qualified Code(s): K58.1 - Irritable bowel syndrome with constipation (3) Chronic idiopathic constipation: Code(s): K59.04 - Chronic idiopathic constipation (4) Screen for colon cancer: Code(s): Z12.11 - Encounter for screening for malignant neoplasm of colon (5) Diverticulosis: Code(s): K57.90 - Diverticulosis of intestine, part unspecified, without perforation or abscess without bleeding Category: Medical (6) Status post colonoscopy: Code(s): Z98.890 - Other specified postprocedural states Plan Will change PPI to Nexium. Patient will start taking probiotics and fiber supplements. Patient can continue taking Dulcolax. No polyps found. Colonoscopy in 5 years due to family history of CRC. Patient will continue avoiding dietary triggers and late night snacking. Staying upright for minimum 3 hours after meals discussed with patient. Increase fluid intake and activity to promote better bowel motility. Follow-up in the office in 3 months, sooner on as needed basis. She is agreeable to this plan and verbalizes understanding of instructions. She was given the opportunity to ask questions and all questions answered. Thank you for allowing me to participate in her care Medications: New Saccharomyces boulardii (Probiotic (S.boulardii)) 250 mg PO QAM 90 caps 2RF esomeprazole magnesium (Nexium) 40 mg PO DAILY 90 caps 3RF K21.9 - Gastro- esophageal reflux disease without esophagitis calcium polycarbophil (Fiber-Lax) 625 mg PO BID 180 tabs 2RF bisacodyl (Dulcolax (bisacodyl)) 10 mg (2 x 5 mg) PO BEDTIME 180 tabs 4RF Discontinued pantoprazole Discontinued Reason: Doctor's Order 40 mg PO DAILY 30 tabs 3RF On Hold linaclotide (Linzess) Hold Comment: Dose Change 145 mcg PO DAILY 30 caps 2RF Coding Level of Care Code Est Pt Level 3 (09630) Diagnoses Gastroesophageal reflux disease without esophagitis K21.9 Esophagitis presence: without esophagitis Irritable bowel syndrome with constipation K58.1 Irritable bowel syndrome type: with constipation Chronic idiopathic constipation K59.04 Screen for colon cancer Z12.11 Diverticulosis K57.90 Status post colonoscopy Z98.890 Time Spent (min) 30 Comment 20 minutes spent with patient and additional 10 minutes spent reviewing her records
[2024-04-01 09:07] VITALS: BP 114/84; PULSE 66; O2SAT 97; BMI 30.4
== END 2024-04-01 09:48 | disposition home or self-care (01) ==
PROVIDERS: PCP Family Medicine; Visit Provider Nurse Practitioner Family
DX: K21.9 Gastro-esophageal reflux disease without esophagitis (principal); K58.1 Irritable bowel syndrome with constipation; K59.04 Chronic idiopathic constipation; Z12.11 Encounter for screening for malignant neoplasm of colon; K57.90 Diverticulosis of intestine, part unspecified, without perforation or abscess without bleeding; Z98.890 Other specified postprocedural states
CPT/HCPCS: 99213

== ENCOUNTER → 2024-04-01 08:58 | Outpatient (BNVA) | payer OTHER, SELFPAY | PROVIDERS: PCP Family Medicine; Visit Provider Nurse Practitioner Family | DX: Z12.11 Encounter for screening for malignant neoplasm of colon (principal); K21.9 Gastro-esophageal reflux disease without esophagitis; K58.1 Irritable bowel syndrome with constipation; K59.04 Chronic idiopathic constipation; K57.90 Diverticulosis of intestine, part unspecified, without perforation or abscess without bleeding; Z98.890 Other specified postprocedural states | CPT/HCPCS: 99212 ==

== ENCOUNTER 2024-07-08 10:07 | Outpatient (AMB) | payer MEDICAID, SELFPAY ==
[2024-07-08 10:24] VITALS: BP 126/72; PULSE 68; O2SAT 95; BMI 31.2
--- NOTE | 2024-07-08 10:24 | A.OFFVIS_ITS ---
Vital Signs 07/08/24 10:24 Height 5 ft Weight 159 lb 9.835 oz BMI 31.2 BP 126/72 Blood Pressure Location Rt brachial Position Sitting Pulse 68 Pulse Source Pulse Oximeter Pulse Oximetry (%) 95 Oxygen Delivery Method Room Air Intake Visit Reasons: 3 month follow up Intake Note: PRESCRIPTIONS LAST GENERATED esomeprazole magnesium 40 mg capsule,delayed release?(Nexium)?40 mg PO DAILY 90 caps 3RF Venus,Ayesha D 04/01/24 09:32 (Transmitted) calcium polycarbophil 625 mg tablet?(Fiber-Lax)?625 mg PO BID 180 tabs 2RF Venus,Ayesha D 04/01/24 09:32 (Transmitted) bisacodyl 5 mg tablet,delayed release?(Dulcolax (bisacodyl))?10 mg (2 x 5 mg) PO BEDTIME 180 tabs 4RF Venus,Ayesha D 04/01/24 09:32 (Transmitted) Saccharomyces boulardii 250 mg capsule?(Probiotic (S.boulardii))?250 mg PO QAM 90 caps 2RF Venus,Ayesha D 04/01/24 09:32 (Transmitted) Relevant Flags or Indicators ? Requires Cafeteria Or Lunchroom Checker? Indu Bartlett presents in office today for a scheduled 3 mos FUV CC; No recent labs, diagnostics placed. ? Relevant GI Sx as reported per pt? Nausea ? Reflux ? Fecal abnormalities o?? Discolored - Occasional melena/hematochezia. o?? Diarrhea ? Abdominal Pain - epigastric. ? Hx of any recent surgeries? None Cafeteria Or Lunchroom Checker Required: No Allergies Penicillins [PENICILLINS] Allergy (Severe, Verified 07/08/24 10:24) RASH HPI HPI 3 month follow up: Details: LAST VISIT: GERD (gastroesophageal reflux disease) IBS (irritable bowel syndrome) Chronic idiopathic constipation Screen for colon cancer Diverticulosis Status post colonoscopy Plan Will change PPI to Nexium. Patient will start taking probiotics and fiber supplements. Patient can continue taking Dulcolax. No polyps found. Colonoscopy in 5 years due to family history of CRC. Patient will continue avoiding dietary triggers and late night snacking. Staying upright for minimum 3 hours after meals discussed with patient. Increase fluid intake and activity to promote better bowel motility. Follow-up in the office in 3 months, sooner on as needed basis. She is agreeable to this plan and verbalizes understanding of instruc tions. She was given the opportunity to ask questions and all questions answered. ? Thank you for allowing me to participate in her care Medications New Saccharomyces boulardii (Probiotic (S.boulardii)) 250 mg PO QAM 90 caps 2RF esomeprazole magnesium (Nexium) 40 mg PO DAILY 90 caps 3RF K21.9 calcium polycarbophil (Fiber-Lax) 625 mg PO BID 180 tabs 2RF bisacodyl (Dulcolax (bisacodyl)) 10 mg (2 x 5 mg) PO BEDTIME 180 tabs 4RF Discontinued pantoprazole Discontinued Reason: Doctor's Order 40 mg PO DAILY 30 tabs 3RF On Hold linaclotide (Linzess) Hold Comment: Dose Change 145 mcg PO DAILY 30 caps 2RF TODAY'S VISIT Patient is here today for follow-up. Patient reports that she continues to have acid reflux occasional dyspepsia. Patient denies dysphagia although occasionally she feels like she has to try to swallow few times before the food goes down. Patient denies any nausea or vomiting. Denies melena, hematochezia, unintentional weight loss or ribbon like stools. Patient is taking Nexium morning, trying to avoid dietary triggers or eating late at night. Patient reports also postprandial abdominal bloating. Reports occasional postprandial abdominal pain in the epigastric area and sometimes in the middle of her abdomen. Reports that she is moving her bowels better now, however she continues to have occasional constipation. Patient is taking sucralfate at bedtime. Denies waking up nauseous. [facility] Medical History (Reviewed 07/08/24 @ 10:24 by Rene Puga [facility]) Diverticulosis Renal calculi Gastric varices Migraine headache Depression GERD (gastroesophageal reflux disease) Diabetes mellitus Adrenal nodule IBS (irritable bowel syndrome) HTN (hypertension) Hyperlipemia Surgical History History of surgery History of esophagogastroduodenoscopy (EGD) Hx of colonoscopy Hx of tubal ligation Hx of discectomy Family History Father Hx of type 1 diabetes mellitus History of epilepsy Mother Family history of high blood pressure Hx of cancer of uterus Social History Household Members Other:: daughter Housing: House Alcohol intake: never Patient Tobacco Use Status: Never used Tobacco Current occupational status: employed Current occupation: [employer]- right handed Sexual orientation: Straight/Heterosexual Gender identity: Female Female Reproductive History Menstrual Age of Menarche: 10 Review of Systems Const Denies weight gain and Denies weight loss ENT Reports no additional complaints, Denies dysphagia and Denies odynophagia Card Reports no additional complaints Resp Reports no additional complaints GI Reports abdominal pain (Epigastric), Denies belching, Denies melena, Reports bloating, Denies change in bowel habits, Reports constipation, Denies dysphagia, Denies excessive flatus, Denies dyspepsia, Reports heartburn, Denies diarrhea, Denies loose stools, Denies nausea, Denies odynophagia and Denies vomiting Reports no additional complaints Musc Reports no additional complaints Neuro Reports no additional complaints Psych Reports no additional complaints Endo Reports no additional complaints Physical Exam Vital Signs: Last Vital Signs Pulse 68 07/08/24 10:24 BP 126/72 07/08/24 10:24 Pulse Ox 95 07/08/24 10:24 Oxygen Delivery Method Room Air 07/08/24 10:24 BMI result Body Mass Index 31.2 Const General: healthy appearing and no acute distress Nutritional Appearance: obese Orientation/consciousness: patient oriented x3 Resp Effort & Inspection: normal respiratory effort, able to speak in complete sent ences, no tracheal deviation and symmetric chest movement Auscultation: clear to auscultation bilaterally Cardio Rate: regular rate GI Inspection: Yes normal to inspection, No distended and Yes obesity Palpation (GI): Soft to palpation, not firm, nontender and No hepatosplenomegaly present Auscultation: normal bowel sounds General: Yes no CVA tenderness Back/Spine/Pelvis Back: no CVA tenderness Skin General skin exam: elasticity normal, turgor normal and dry skin Neuro General: patient oriented x3 Psych Appearance: grossly normal Mental Status: mental status grossly normal Assessment & Plan Assessment & Plan (1) GERD (gastroesophageal reflux disease): Code(s): K21.9 - Gastro-esophageal reflux disease without esophagitis Category: Medical Qualifiers: Esophagitis presence: without esophagitis Qualified Code(s): K21.9 - Gastro-esophageal reflux disease without esophagitis (2) IBS (irritable bowel syndrome): Code(s): K58.9 - Irritable bowel syndrome, unspecified Category: Medical Qualifiers: Irritable bowel syndrome type: with constipation Qualified Code(s): K58.1 - Irritable bowel syndrome with constipation (3) Diverticulosis: Code(s): K57.90 - Diverticulosis of intestine, part unspecified, without perforation or abscess without bleeding Category: Medical (4) Chronic idiopathic constipation: Code(s): K59.04 - Chronic idiopathic constipation Plan Continue Nexium in the morning and sucralfate at bedtime. Avoid dietary triggers and late night snacking. Patient is scheduled for upper GI series with barium swallow July 10, will review when resulted. Continue Dulcolax daily. Increase fluid intake and activity to promote better bowel motility. Patient will return in 3-4 months, sooner on as needed basis. She is agreeable to this plan and verbalizes understanding of instructions she was given the opportunity to ask questions and all questions answered. Thank you for allowing me to participate in her care Medications: Discontinued linaclotide Discontinued Reason: Doctor's Order 145 mcg PO DAILY 30 caps 2RF Coding Level of Care Code Est Pt Level 4 (64538) Diagnoses Gastroesophageal reflux disease without esophagitis K21.9 Esophagitis presence: without esophagitis Irritable bowel syndrome with constipation K58.1 Irritable bowel syndrome type: with constipation Diverticulosis K57.90 Chronic idiopathic constipation K59.04 Time Spent (min) 35 Comment 25 minutes spent with patient and additional 10 minutes spent reviewing her records
== END 2024-07-08 11:10 | disposition home or self-care (01) ==
LOC: HO.HGI 10:07
PROVIDERS: PCP Family Medicine; Visit Provider Nurse Practitioner Family
DX: K21.9 Gastro-esophageal reflux disease without esophagitis (principal); K58.1 Irritable bowel syndrome with constipation; K57.90 Diverticulosis of intestine, part unspecified, without perforation or abscess without bleeding; K59.04 Chronic idiopathic constipation
CPT/HCPCS: 99214

== ENCOUNTER → 2024-07-08 10:07 | Outpatient (BNVA) | payer MEDICAID, SELFPAY | PROVIDERS: PCP Family Medicine; Visit Provider Nurse Practitioner Family | DX: K21.9 Gastro-esophageal reflux disease without esophagitis (principal); K58.1 Irritable bowel syndrome with constipation; K57.90 Diverticulosis of intestine, part unspecified, without perforation or abscess without bleeding; K59.04 Chronic idiopathic constipation | CPT/HCPCS: 99212 ==

== ENCOUNTER 2024-07-10 09:11 | Outpatient (REF) | payer MEDICAID, SELFPAY ==
--- NOTE | ~2024-07-10 | FL_ITS ---
EXAMINATION: XR FLUOROSCOPY UPPER GI WITH AIR CLINICAL INFORMATION: Dysphagia COMPARISON: None TECHNIQUE: Fluoroscopic air contrast upper GI examination was performed utilizing standard techniques with thin and thick barium and effervescent granules. Numerous spot images were obtained. FINDINGS: Lateral cine images of the oropharynx and hypopharynx demonstrate normal swallow mechanism with normal epiglottic inversion and soft palate elevation. No tracheal penetration, glottic or subglottic aspiration identified. No nasopharyngeal reflux present. Hypopharyngeal structures appear normal without evidence of mass or diverticulum. There is mild cricopharyngeal achalasia present. Anterior cervical disc fusion is present at C6-C7. Surgical clips are present in the right upper quadrant. Dual and single contrast images of the esophagus demonstrate normal caliber, contour, and mucosal pattern. No masses or ulcerations are seen. There is mild to moderate narrowing of the GE junction that may represent achalasia. Esophageal peristalsis is mildly disorganized. No evidence of hiatus hernia identified. No significant gastroesophageal reflux was seen during the course of the examination and on reflux views. Dual contrast and single contrast images of the stomach demonstrated a normal contour. There are multiple small foci of contrast pooling in the body and fundus the stomach that may present small mucosal erosions. No masses are present. Contrast freely passed into the gastric antrum and duodenal bulb without delay. Single and air-contrast images of the duodenal bulb demonstrate no abnormality. The duodenal sweep has a normal appearance, course, and mucosal fold appearance. There is a tiny diverticulum noted in the proximal third portion of the duodenum. The imaged proximal jejunum has a normal fold pattern and caliber. FLUOROSCOPY TIME: 3 minutes 57 seconds Number of Spot Images: 7 Number of Cine: 14 DOSE AREA PRODUCT: [id number] uGy-m2 (microgray-meter squared) FL/FL upper GI w air w Ba Swallow IMPRESSION: 1. Mild cricopharyngeal achalasia. 2. Mildly disorganized esophageal peristalsis. 3. Mild to moderate narrowing of the GE junction that likely represents achalasia. A benign stricture cannot be ruled out. Recommend correlation with EGD. 4. Multiple small foci of contrast pooling in the body and fundus the stomach that may present small mucosal erosions. Recommend correlation of EGD. 5. Tiny diverticulum noted in the proximal third portion the duodenum. 6. Status post ACDF at C6-C7. 7. Status post cholecystectomy. This procedure was performed by Matt Woody PA-C, and supervised by Dr. Godoy Electronically signed by: Joel Godoy MD 07/14/2024 04:14 PM [facility]
== END 2024-07-10 09:12 | disposition home or self-care (01) ==
LOC: HO.XRAY 09:11
PROVIDERS: PCP Family Medicine; Visit Provider Nurse Practitioner Family
DX: R13.10 Dysphagia, unspecified (principal)
CPT/HCPCS: 74240; 74246

== ENCOUNTER → 2024-07-10 09:16 | Outpatient (BNV) | payer MEDICAID, SELFPAY | PROVIDERS: PCP Family Medicine; Visit Provider Physician Assistant Surgical | DX: R13.10 Dysphagia, unspecified (principal) | CPT/HCPCS: 74246 ==

== ENCOUNTER 2024-09-04 08:27 | Day surgery (SDC) | payer MEDICAID, SELFPAY ==
--- NOTE | 2024-09-03 12:02 | P.CONAN_ITS ---
Documented by User: Roro Banks NP 09/03/24 12:02 HPI - Anesthesia Eval Consult details Narrative: 53yo F for Upper Endoscopy Anesthesia Pre-Procedure Meds Is the patient on any of the following meds?: GLP1/DPP4 PMFSH Active Problems Active Problems: All Active Problems Diverticulosis (Acute) Avulsion fracture of talus (Acute) Atypical chest pain (Acute) Renal calculi (Acute) Urine incontinence (Acute) Bacterial vaginosis (Acute) Left ankle sprain (Acute) Cubital tunnel syndrome on right (Acute) Arthritis of carpometacarpal (CMC) joint of right thumb (Acute) Numbness and tingling in right hand (Acute) IBS (irritable bowel syndrome) (Acute) GERD (gastroesophageal reflux disease) (Acute) Well woman exam (Acute) Past Medical History Medical History Diverticulosis Renal calculi Gastric varices Migraine headache Depression GERD (gastroesophageal reflux disease) Diabetes mellitus Adrenal nodule IBS (irritable bowel syndrome) HTN (hypertension) Hyperlipemia Family History Family History Father Hx of type 1 diabetes mellitus History of epilepsy Mother Family history of high blood pressure Hx of cancer of uterus Family history of problems with anesthesia: No Surgical History Surgical History History of surgery History of esophagogastroduodenoscopy (EGD) Hx of colonoscopy Hx of tubal ligation Hx of discectomy History of Problems with Anesthesia: No Social History Social History Household Members Other:: daughter Housing: House Alcohol intake: never Patient Tobacco Use Status: Never used Tobacco Current occupational status: employed 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 Sexual orientation: Straight/Heterosexual Gender identity: Female Meds Allergies Allergy/AdvReac Type Severity Reaction Status Date / Time Penicillins [PENICILLINS] Allergy Severe RASH Verified 09/04/24 09:49 Home Medications ?Medication ?Instructions ?Recorded ?Confirmed ?Last Taken ?Type amitriptyline 150 mg tablet 150 mg PO BEDTIME 09/21/20 02/26/23 Unknown History gabapentin 400 mg capsule 400 mg PO TID 09/21/20 02/26/23 Unknown History propranolol 120 mg capsule,24 120 mg PO DAILY 03/01/21 02/26/23 Unknown History hr,extended release ergocalciferol (vitamin D2) 1,250 1,250 mcg PO QWEEK 10/02/21 02/26/23 Unknown History mcg (50,000 unit) capsule (Vitamin D2) loratadine 10 mg tablet 10 mg PO DAILY 11/21/21 02/26/23 Unknown History atorvastatin 20 mg tablet 20 mg PO DAILY 04/01/24 Unknown History cholecalciferol (vitamin D3) 50 50 mcg PO DAILY 04/01/24 Unknown History mcg (2,000 unit) capsule (Vitamin D3) pyridoxine (vitamin B6) 100 mg 100 mg PO DAILY 04/01/24 Unknown History tablet magnesium oxide 400 mg (241.3 mg 400 mg PO DAILY 07/08/24 Unknown History magnesium) tablet Assessment and Plan Assessment Anesthesia Assessment: Chart Reviewed Final Anesthetic Review Family History of Problems with Anesthesia: No History of Problems with Anesthesia: No Documented by User: Geo Ortiz MD 09/04/24 10:02 [facility] Past Medical History Medical History Diverticulosis Renal calculi Gastric varices Migraine headache Depression GERD (gastroesophageal reflux disease) Diabetes mellitus Adrenal nodule IBS (irritable bowel syndrome) HTN (hypertension) Hyperlipemia Family History Family History Father Hx of type 1 diabetes mellitus History of epilepsy Mother Family history of high blood pressure Hx of cancer of uterus Surgical History Surgical History History of surgery History of esophagogastroduodenoscopy (EGD) Hx of colonoscopy Hx of tubal ligation Hx of discectomy Social History Social History Household Members Other:: daughter Housing: House Alcohol intake: never Patient Tobacco Use Status: Never used Tobacco Current occupational status: employed 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 Sexual orientation: Straight/Heterosexual Gender identity: Female Meds Allergies Allergy/AdvReac Type Severity Reaction Status Date / Time Penicillins [PENICILLINS] Allergy Severe RASH Verified 09/04/24 09:49 Home Medications ?Medication ?Instructions ?Recorded ?Confirmed ?Last Taken ?Type amitriptyline 150 mg tablet 150 mg PO BEDTIME 09/21/20 02/26/23 Unknown History gabapentin 400 mg capsule 400 mg PO TID 09/21/20 02/26/23 Unknown History propranolol 120 mg capsule,24 120 mg PO DAILY 03/01/21 02/26/23 Unknown History hr,extended release ergocalciferol (vitamin D2) 1,250 1,250 mcg PO QWEEK 10/02/21 02/26/23 Unknown History mcg (50,000 unit) capsule (Vitamin D2) loratadine 10 mg tablet 10 mg PO DAILY 11/21/21 02/26/23 Unknown History atorvastatin 20 mg tablet 20 mg PO DAILY 04/01/24 Unknown History cholecalciferol (vitamin D3) 50 50 mcg PO DAILY 04/01/24 Unknown History mcg (2,000 unit) capsule (Vitamin D3) pyridoxine (vitamin B6) 100 mg 100 mg PO DAILY 04/01/24 Unknown History tablet magnesium oxide 400 mg (241.3 mg 400 mg PO DAILY 07/08/24 Unknown History magnesium) tablet Exam Airway Mallampati Class: II TM Dist: >3cm Neck ROM: Full Loose/Missing/Broken Teeth: No Heart: ok Lungs: ok Assessment and Plan Assessment Anesthesia Assessment: Anesthesia Plan Discussed Final Anesthetic Review NPO: Yes ASA Class: II Final Preanesthetic Review: No Changes in Pt Med Stat, Meds/Allgs Chart Reviewed, Consent Obtained/Reviewed and Anes Risks/Benef Reviewed Patient Risk: Intermediate Procedure Risk: Intermediate Anesthetic Plan Anesthetic Plan: Agree w/ Assess. and Plan and TIVA Disposition: Standard PACU
--- NOTE | 2024-09-04 09:39 | MHC.SHP ---
Pre-Procedural Eval Section A - 24 Hr Update-Section A only Date of Service: 09/04/24 Section B - Complete if H&P > 30 days Chief Complaint: Dysphagia, abnormal barium swallow Details of Present Illness: Diverticulosis Renal calculi Gastric varices Migraine headache Depression GERD (gastroesophageal reflux disease) Diabetes mellitus Adrenal nodule IBS (irritable bowel syndrome) HTN (hypertension) Hyperlipemia Surgical History History of surgery History of esophagogastroduodenoscopy (EGD) Hx of colonoscopy Hx of tubal ligation Hx of discectomy Present Medications: see Short Stay Collaborative assessment Allergies: Allergies Allergy/AdvReac Type Severity Reaction Status Date / Time Penicillins [PENICILLINS] Allergy Severe RASH Verified 07/08/24 10:24 Review of Systems Review of Systems Comment: Ten point ROS negative Exam Exam Comment: Gen appear: No acute distress HEENT: no icterus Chest: No overt resp distress Abd: soft, nontender, nondistended Psych: Stable affect, answering questions appropriately Neuro: A/Ox3 noted to move all extremities spontaneously Ext: no peripheral edema Plan Diagnosis/Plan: Unchanged I have reviewed the history and physical and performed a pertinent physical examination on my patient. No changes have occurred unless specified. Time Spent With Patient Time: Total time managing care of this patient today ____ minutes.
[2024-09-04 09:58] VITALS: BP 125/75; PULSE 63; RESP 16; TEMP 36.3; O2SAT 95; BMI 31.0
[2024-09-04] MEDS: Lactated Ringers 1,000 ML 100 ML IVCONT (10:13)
[2024-09-04 10:18] LABS: Glucose, Whole Blood 107 mg/dL (60-115)
--- NOTE | 2024-09-04 11:08 | P.OP_ITS ---
Operative Note Operative Note Date of Service: 09/04/24 Narrative: Procedure: Esophagogastroduodenoscopy Endoscopist: Nani Bonner MD Indication: Dysphagia, abnormal barium swallow Anesthesia Provider: Geo Ortiz MD Anesthesia Type: MAC ?? EGD Procedure:?? The procedure, indications, preparation and potential complications were reviewed with the patient with the help of a clerk, who indicated understanding and gave written informed consent to proceed. A physical exam was performed. The endoscope was introduced through the mouth, and advanced to the second part of duodenum. The mucosa was carefully examined on slow withdrawal of the endoscope. The patient tolerated the procedure well. There were no immediate complications.? ? EGD Findings:? * Esophagus:? Normal mucosa noted in the entire esophagus. The Z line was at 39 cm displaced by a small hiatal hernia with the diaphragmatic hiatus at 41 cm. Middle and lower esophagus forceps biopsies were obtained to rule out eosinophilic esophagitis. * Stomach:? erythema and erosions noted in the antrum. Retroflexion was performed in the cardia that showed Hill grade 2 hiatal hernia. Random cold forceps gastric biopsies were taken to rule out H Pylori infection. * Duodenum:? Normal mucosa was noted in the whole of the examined duodenum. Additional intervention: A soft tipped Savary wire was introduced through the biopsy channel and advanced to the antrum. A savary baljit bougie was advanced over the guidewire and the esophagus was dilated to 17 mm. On relook there was a superficial tear and heme at the level of cricopharyngeus confirming successful dilation. ? EGD Impressions:? * Cricopharyngeal narrowing (dilation) * Normal esophagus (biopsy) * Gastritis (biopsy) * Normal duodenum ?? Recommendations:?? * Follow biopsy results. Our office will call or send a letter with results within 7-10 days. * Continue PPI therapy. * If H pylori +, patient will be prescribed eradication therapy followed by test of cure. * Avoid NSAIDs. * If the swallowing improves with dilation today, can return for EGD p.r.n. for recurrence of symptoms Above has been reviewed with the patient.
[2024-09-04 11:13] VITALS: BP 94/66; PULSE 72; RESP 20; TEMP 36.2; O2SAT 98
[2024-09-04 11:25] VITALS: BP 110/70; PULSE 70; RESP 20; O2SAT 98
[2024-09-04 11:40] VITALS: BP 125/81; PULSE 64; RESP 16; TEMP 36.2; O2SAT 100
--- NOTE | 2024-09-04 12:30 | PC.NURSE ---
anesthesiologist physician present during discharge instructions.
== END 2024-09-04 12:15 | disposition home or self-care (01) ==
PROVIDERS: PCP Family Medicine; Visit Provider Internal Medicine
PROC: 0DJ08ZZ Inspection of Upper Intestinal Tract, Via Natural or Artificial Opening Endoscopic (ICD-10-PCS; CPT 43235; principal; 2024-09-04 10:30)
DX: K29.60 Other gastritis without bleeding (principal); K44.9 Diaphragmatic hernia without obstruction or gangrene; R13.10 Dysphagia, unspecified; K21.9 Gastro-esophageal reflux disease without esophagitis; E11.9 Type 2 diabetes mellitus without complications; I10 Essential (primary) hypertension; E78.5 Hyperlipidemia, unspecified; K58.1 Irritable bowel syndrome with constipation; K59.04 Chronic idiopathic constipation; Z98.51 Tubal ligation status; Z79.899 Other long term (current) drug therapy; Z79.02 Long term (current) use of antithrombotics/antiplatelets
CPT/HCPCS: 43248; 43239; 82947; 88305; 88342; C1769; J2003; J2704

== ENCOUNTER → 2024-09-04 08:27 | Outpatient (BNV) | payer MEDICAID, SELFPAY | PROVIDERS: PCP Family Medicine; Visit Provider Internal Medicine | DX: R13.10 Dysphagia, unspecified (principal); R93.3 Abnormal findings on diagnostic imaging of other parts of digestive tract; K29.70 Gastritis, unspecified, without bleeding | CPT/HCPCS: 43239; 43248 ==

== ENCOUNTER 2024-09-23 10:12 | Outpatient (REF) | payer MEDICAID, SELFPAY | END 2024-09-23 10:13 | disposition home or self-care (01) | LOC: HO.MAMMO 10:12 | PROVIDERS: PCP Family Medicine; Visit Provider Family Medicine | DX: Z12.31 Encounter for screening mammogram for malignant neoplasm of breast (principal) | CPT/HCPCS: 77063; 77067 ==

== ENCOUNTER → 2024-09-23 10:30 | Outpatient (BNV) | payer MEDICAID, SELFPAY | PROVIDERS: PCP Family Medicine; Visit Provider Internal Medicine | DX: Z12.31 Encounter for screening mammogram for malignant neoplasm of breast (principal) | CPT/HCPCS: 77063; 77067 ==

== ENCOUNTER 2024-10-21 10:58 | Outpatient (AMB) | payer MEDICAID, SELFPAY ==
--- NOTE | 2024-10-21 11:09 | A.OFFVIS_ITS ---
Vital Signs 10/21/24 11:10 Height 5 ft Weight 160 lb 7.944 oz BMI 31.3 BP 140/84 H Blood Pressure Location Rt brachial Position Sitting Pulse 70 Pulse Source Pulse Oximeter Pulse Oximetry (%) 98 Oxygen Delivery Method Room Air Intake Visit Reasons: 4 mnth follow up Intake Note: ESTABLISHED PATIENT for dysphagia, GERD, constipation mgmt. S/P FUV. Imaging done ([facility]) Chief Complaint; Pt states that presentation of the above sx has remained the same since last visit. No improvements. Pt denies any new concerns. Custodial Supervisor Required: No Custodial Supervisor Services: Custodial Supervisor Offered & Declined Accompanied by: Self / Same As Patient Allergies Penicillins [PENICILLINS] Allergy (Severe, Verified 09/04/24 09:49) RASH HPI HPI 4 mnth follow up: Details: LAST VISIT GERD (gastroesophageal reflux disease) IBS (irritable bowel syndrome) Diverticulosis Chronic idiopathic constipation Plan Continue Nexium in the morning and sucralfate at bedtime. Avoid dietary triggers and late night snacking. Patient is scheduled for upper GI series with barium swallow July 10, will review when resulted. Continue Dulcolax daily. Increase fluid intake and activity to promote better bowel motility. Patient will return in 3-4 months, sooner on as needed basis. She is agreeable to this plan and verbalizes understanding of instructions she was given the opportunity to ask questions and all questions answered. ? Thank you for allowing me to participate in her care Medications Discontinued linaclotide Discontinued Reason: Doctor's Order 145 mcg PO DAILY 30 caps 2RF UPPER ENDOSCOPY EGD Findings:? * Esophagus:? Normal mucosa noted in the entire esophagus. The Z line was at 39 cm displaced by a small hiatal hernia with the diaphragmatic hiatus at 41 cm. Middle and lower esophagus forceps biopsies were obtained to rule out eosinophilic esophagitis. * Stomach:? erythema and erosions noted in the antrum. Retroflexion was performed in the cardia that showed Hill grade 2 hiatal hernia. Random cold forceps gastric biopsies were taken to rule out H Pylori infection. * Duodenum:? Normal mucosa was noted in the whole of the examined duodenum. Additional intervention: A soft tipped Savary wire was introduced through the biopsy channel and advanced to the antrum. A savary baljit bougie was advanced over the guidewire and the esophagus was dilated to 17 mm. On relook there was a superficial tear and heme at the level of cricopharyngeus confirming successful dilation. ? EGD Impressions:? * Cricopharyngeal narrowing (dilation) * Normal esophagus (biopsy) * Gastritis (biopsy) * Normal duodenum ?? Recommendations:?? * Follow biopsy results. Our office will call or send a letter with results within 7-10 days. * Continue PPI therapy. * If H pylori +, patient will be prescribed eradication therapy followed by test of cure. * Avoid NSAIDs. * If the swallowing improves with dilation today, can return for EGD p.r.n. for recurrence of symptoms PATHOLOGY Addendum Addendum #1 Immunostain for H. pylori on A is negative. Control stains appropriately. Electronically Signed By: Deb Prater 09/11/24 0822 Diagnosis A. Stomach, random, biopsy: Gastric antral and body mucosa with minimal chronic inactive gastritis; negative for intestinal metaplasia and dysplasia. B. Esophagus, lower, biopsy: Squamous mucosa with no specific change; no columnar mucosa present. C. Esophagus, middle, biopsy: Squamous mucosa with no specific change; no columnar mucosa present. Comment: (A): Immunostain for H. pylori pending; addendum to follow. TODAY'S VISIT Patient is here today for follow-up and to discuss upper endoscopy and upper GI series results. Patient was found to have significant reflux on upper GI study back in July, cricopharyngeal achalasia, disorganized motility, reflux and moderate narrowing to GE junction. Patient had upper endoscopy done and dilation was performed. No esophagitis or Barretts found. Biopsy negative for H pylori. Mild chronic inflammation seen in his stomach confirming chronic mild gastritis. Patient reports that she has been taking Nexium every morning and her symptoms are suppressed for the most part. Occasionally depending on what she eats she might have acid reflux and epigastric pain and abdominal bloating. Patient reports that swallowing is significantly better. Patient was without sucralfate for over 2 months. Patient denies any melena, hematochezia. Reports that she is moving her bowels better with Dulcolax. Patient admits to occasional postprandial loose stools, however patient reports that depending on what she eats. 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 [facility] Medical History Diverticulosis Renal calculi Gastric varices Migraine headache Depression GERD (gastroesophageal reflux disease) Diabetes mellitus Adrenal nodule IBS (irritable bowel syndrome) HTN (hypertension) Hyperlipemia Surgical History History of surgery History of esophagogastroduodenoscopy (EGD) Hx of colonoscopy Hx of tubal ligation Hx of discectomy Family History Father Hx of type 1 diabetes mellitus History of epilepsy Mother Family history of high blood pressure Hx of cancer of uterus Social History Household Members Other:: daughter Housing: House Alcohol intake: never Patient Tobacco Use Status: Never used Tobacco Current occupational status: employed 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 Sexual orientation: Straight/Heterosexual Gender identity: Female Female Reproductive History Menstrual Age of Menarche: 10 Review of Systems Const Denies weight gain and Denies weight loss ENT Reports no additional complaints, Denies dysphagia and Denies odynophagia Card Reports no additional complaints Resp Reports no additional complaints GI Reports abdominal pain (Epigastric), Denies belching, Denies melena, Reports bloating, Denies change in bowel habits, Reports constipation, Denies dysphagia, Denies excessive flatus, Denies dyspepsia, Reports heartburn, Denies diarrhea, Denies loose stools, Denies nausea, Denies odynophagia and Denies vomiting Reports no additional complaints Musc Reports no additional complaints Neuro Reports no additional complaints Psych Reports no additional complaints Endo Reports no additional complaints Physical Exam Vital Signs: Last Vital Signs Pulse 70 10/21/24 11:10 BP 140/84 H 10/21/24 11:10 Pulse Ox 98 10/21/24 11:10 Oxygen Delivery Method Room Air 10/21/24 11:10 BMI result Body Mass Index 31.3 Const General: healthy appearing and no acute distress Nutritional Appearance: obese Orientation/consciousness: patient oriented x3 Resp Effort & Inspection: normal respiratory effort, able to speak in complete sentences, no tracheal deviation and symmetric chest movement Auscultation: clear to auscultation bilaterally Cardio Rate: regular rate GI Inspection: Yes normal to inspection, No distended and Yes obesity Palpation (GI): Soft to palpation, not firm, nontender and No hepatosplenomegaly present Auscultation: normal bowel sounds General: Yes no CVA tenderness Back/Spine/Pelvis Back: no CVA tenderness Skin General skin exam: elasticity normal, turgor normal and dry skin Neuro General: patient oriented x3 Psych Appearance: grossly normal Mental Status: mental status grossly normal Results Reviewed Results Reviewed: UPPER GI SERIES IMPRESSION: 1. Mild cricopharyngeal achalasia. 2. Mildly disorganized esophageal peristalsis. 3. Mild to moderate narrowing of the GE junction that likely represents achalasia. A benign stricture cannot be ruled out. Recommend correlation with EGD. 4. Multiple small foci of contrast pooling in the body and fundus the stomach that may present small mucosal erosions. Recommend correlation of EGD. 5. Tiny diverticulum noted in the proximal third portion the duodenum. 6. Status post ACDF at C6-C7. 7. Status post cholecystectomy. Assessment & Plan Assessment & Plan (1) GERD (gastroesophageal reflux disease): Code(s): K21.9 - Gastro-esophageal reflux disease without esophagitis Category: Medical Qualifiers: Esophagitis presence: without esophagitis Qualified Code(s): K21.9 - Gastro-esophageal reflux disease without esophagitis (2) IBS (irritable bowel syndrome): Code(s): K58.9 - Irritable bowel syndrome, unspecified Category: Medical Qualifiers: Irritable bowel syndrome type: with constipation Qualified Code(s): K58.1 - Irritable bowel syndrome with constipation (3) Diverticulosis: Code(s): K57.90 - Diverticulosis of intestine, part unspecified, without perforation or abscess without bleeding Category: Medical (4) Chronic idiopathic constipation: Code(s): K59.04 - Chronic idiopathic constipation (5) Dysphagia: Code(s): R13.10 - Dysphagia, unspecified Qualifiers: Dysphagia type: esophageal phase Qualified Code(s): R13.19 - Other dysphagia Plan Patient reports to be feeling significantly better after upper endoscopy and dilation. Acid reflux less frequent. Patient admits that she is trying to avoid dietary triggers. Patient reports that she was unable to refill her sucralfate and she has not been taking that for couple months. Patient will continue current therapy with Nexium and we will send script for sucralfate. Patient was encouraged to stop eating late at night. Staying upright for minimum 3 hours after meals discussed with patient. Continue current bowel regimen. Increase fluid intake and activity to promote better bowel motility. Patient will continue low FODMAP diet. I will see her in 6 months. She will call our office if she will have any GI concerning symptoms. She is agreeable to this plan and verbalizes understanding of instructions. She was given the opportunity to ask questions and all questions answered. Thank you for allowing me to participate in her care Medications: New sucralfate 1 g PO BEDTIME 90 tabs 3RF K21.9 - Gastro-esophageal reflux disease without esophagitis, K29.81 - Duodenitis with bleeding Refilled esomeprazole magnesium (Nexium) 40 mg PO DAILY 90 caps 3RF K21.9 - Gastro- esophageal reflux disease without esophagitis Coding Level of Care Code Est Pt Level 4 (04287) Complex EM visit Add On G2211 Diagnoses Gastroesophageal reflux disease without esophagitis K21.9 Esophagitis presence: without esophagitis Irritable bowel syndrome with constipation K58.1 Irritable bowel syndrome type: with constipation Diverticulosis K57.90 Chronic idiopathic constipation K59.04 Esophageal dysphagia R13.19 Dysphagia type: esophageal phase Time Spent (min) 35 Comment 25 minutes spent with patient and additional 10 minutes spent reviewing her records
[2024-10-21 11:10] VITALS: BP 140/84; PULSE 70; O2SAT 98; BMI 31.3
--- OUTSIDE RECORDS SUMMARY | 2024-10-21 12:48 | XMS_ITS | Encounter Summary ---
Author Organization [employer] Address [address] [place] [address] Care Team Providers Care Narcotics Detective Name Role Phone KoryFarhana Primary Care Provider + [phone] Encounter Details Date Type Department Care Team (Late st Contact Info) Description 12/20/2023 Orders Only [facility] [address] [place] [address] ProviderPantera MD Social History Tobacco Use Types Packs/Day Years Used Date Smoking Tobacco: Never Passive Smoke Exposure: Never Smokeless Tobacco: Never Alcohol Use Standard Drinks/Week Comments Never 0 (1 standard drink = 0.6 oz pur e alcohol) Depression Answer Date Recorded Patient Health Questionnaire-9 Score 4 12/09/2023 Patient Health Questionnaire-9 Score 4 12/09/2023 Last PHQ-9: Questionnaire Data Not on file 0 12/09/2023 Housing Stability Answer Date Recorded What is your housing situation today? I have magalie miguel 06/25/[address] you li ve. Do you have problems with any of the following? None of the above 06/25/2023 Food Insecurity Answer Date Recorded Within the past 12 months, y ou worried that your food would run out before you got money to buy more: Never True 06/25/2023 Within the past 12 months,th e food you bought just didn't last and you didn't have enough money to get more: Never True Transportation Answer Date Recorded In the past 12 months, has l ack of transportation kept you from medical appts, meetings, work or from getting things needed for daily living? No 06/25/2023 Utilities Answer Date Recorded In the past 12 months, has t he [employer], gas, oil or water [employer] threatened to shut off services in your home? No 06/25/2023 Depression Answer Date Recorded Patient Health Questionnaire-2 Score 2 12/09/2023 Comments Unknown Sex and Gender Information Value Date Recorded Sex Assigned at Female 07/09/2022 10:14 AM EDT Legal Sex Female 10:14 AM EDT Gender Identity Female 07/09/2022 10:14 AM EDT Sexual Orientation Straight 07/09/2022 10 :14 AM EDT documented as of this encounter Plan of Treatment Upcoming Encounters Date Type Department Care Team (Late st Contact Info) Description 02/12/2025 10:00 AM EDT Office Visit [facility] [address] [place], [place] [id number] Danette Harris, [place] [address] [place] [address] documented as of this encounter Procedures Procedure Name Priority Date/Time Associated Diagnosis Comments HM COLONOSCOPY Routine 01/27/2019 8:43 AM EDT documented in this encounter Results * Hm Colonoscopy (01/27/2019 8:43 AM EDT) us Historical Provider HEALTH MAINTENANCE Final Result documented in this encounter Visit Diagnoses Not on filedocumented in this encounter Additional Health Concerns Assessment Noted Time PHQ-9 Depression Total Score: 4 12/09/19 24 10:18 AM EDT documented as of this encounter Care Teams Narcotics Detective Relationship Specialty Start Date End Date Farhana Horn DO [address] [place], [place] [id number] PCP - General Family Medicine 09/09/18 documented as of this encounter
--- OUTSIDE RECORDS SUMMARY | 2024-10-21 12:48 | XMS_ITS | Encounter Summary ---
Author Organization [employer] Address [address] [facility] [address]t [place] [address] Care Team Providers Care Apartment Maintenance Worker Name Role Phone Farhana Horn Primary Care Provider [phone] Reason for Visit * Reason Onset Date Comments Recall Letter 10/15/2024 Recall Letter se nt 10/15/24. Encounter Details Date Type Department Care Team ([facility] st Contact Info) Description 10/15/2024 Telephone [facility] MEDICINE [address] [place] [address] Sudha Doss MA Recall Letter (Recall Letter sent 10/15/24.) Social History Tobacco Use Types Packs/Day Years [...] the past 12 months, has t he electric, gas, oil or water company threatened to shut off services in your home? No 06/25/2023 Depression Answer Date Recorded Patient Health Questionnaire-2 Score 2 12/09/2023 Comments Unknown Sex and Gender Information Value Date Recorded Sex Assigned at Female 07/09/2022 10:14 AM EDT Legal Sex Female 10:14 AM EDT Gender Identity Female 07/09/2022 10:14 AM EDT Sexual Orientation Straight 07/09/2022 10 :14 AM EDT documented as of this encounter Miscellaneous Notes * Telephone Encounter - Sudha Doss MA - 10/15/2024 10:45 AM EST Office Visit-DM. L/M to patient vm to call PCP office. Recall sent 10/15/24. documented in this encounter Plan of Treatment Upcoming Encounters Date Type Department Care Team (Late st Contact Info) Description 02/12/2025 10:00 AM EDT Office Visit [facility] OPTOMETRY [address] [place], [place] [id number] Danette Harris, OD [address] [place] [address] documented as of this encounter Visit Diagnoses Not on filedocumented in this encounter Additional Health Concerns Assessment Noted Time PHQ-9 Depression Total Score: 4 12/09/19 24 10:18 AM EDT documented as of this encounter Care Teams Apartment Maintenance Worker Relationship Specialty Start Date End Date Farhana Horn DO [address] [place] [address] PCP - General Family Medicine 09/09/18 documented as of this encounter
--- OUTSIDE RECORDS SUMMARY | 2024-10-21 12:48 | XMS_ITS | Encounter Summary ---
Author Organization [employer] Address [address] [place] [address] [address] [place] [address] Care Team Providers Care Supervisor Steffen House Name Role Phone Farhana Horn DO Primary Care Provider + [phone] Reason for Visit * Reason Comments Med Refill Encounter Details Date Type Department Care Team (Late Contact Info) Description 12/13/2022 Refill [facility] MED & PEDS [address] [place] [address] [facility] [address] [place] [address] Hyperlipidemia, unspecified hyperlipidemia type Social History Tobacco Use Types Packs/Day Years Used Date Smoking Tobacco: Never Assessed Comments Unknown Sex and Gender Information Value Date Recorded Sex Assigned at Female 07/09/2022 10:14 AM EDT Legal Sex Female 10:14 AM EDT Gender Identity Female 07/09/2022 10:14 AM EDT Sexual Orientation Straight 07/09/2022 10 :14 AM EDT documented as of this encounter Plan of Treatment Upcoming Encounters Date Type Department Care Team (Late Contact Info) Description 02/12/2025 10:00 AM EDT Office Visit [facility] OPTOMETRY [address] [place] [address] Steven, Danette, OD [address] [place] [address] documented as of this encounter Visit Diagnoses Diagnosis Hyperlipidemia, unspecified hyperlipidemia type documented in this encounter Care Teams Supervisor Steffen House Relationship Specialty Start Date End Date Farhana Horn DO [address] [place] [id number] PCP - General Family Medicine 09/09/18 documented as of this encounter
--- OUTSIDE RECORDS SUMMARY | 2024-10-21 12:48 | XMS_ITS | Encounter Summary ---
Author Organization [employer] Address [address] [facility] 7t [place] [address] Care Team Providers Care Chief Of Safety And Protection Name Role Phone Farhana Horn DO Primary Care Provider + [phone] Reason for Visit * Reason Comments Med Refill Encounter Details Date Type Department Care Team ([facility] st Contact Info) Description 09/21/2024 Refill [facility] CHC MED & PEDS [address] [place], [place] [phone] Farhana Horn DO [address] [place] [address] Social History Tobacco Use Types Packs/Day Years [...] Description 02/12/2025 10:00 AM EDT Office Visit [facility] OPTOMETRY [address] [place] [address] Steven, Danette, OD [address] [place] [address] documented as of this encounter Visit Diagnoses Not on filedocumented in this encounter Additional Health Concerns Assessment Noted Time PHQ-9 Depression Total Score: 4 12/09/19 24 10:18 AM EDT documented as of this encounter Care Teams Chief Of Safety And Protection Relationship Specialty Start Date End Date Farhana Horn DO [address] [place] [address] PCP - General Family Medicine 09/09/18 documented as of this encounter
--- OUTSIDE RECORDS SUMMARY | 2024-10-21 12:48 | XMS_ITS | Encounter Summary ---
Author Organization [employer] [facility] Address [address] [place] [address] [address] [place] [address] Care Team Providers Care Records Management Specialist Name Role Phone Farhana Horn DO Primary Care Provider Encounter Details Date Type Department Care Team (Latest Contact Info) Description 10/16/2019 Abstract [facility] CONVERSIONS Dental, Provider, DDS Social History Tobacco Use Types Packs/Day Years [...] Description 02/12/2025 10:00 AM EDT Office Visit [facility] OPTOMETRY [address] [place] [address] Steven, Danette, OD [address] [place] [address] documented as of this encounter Visit Diagnoses Not on filedocumented in this encounter Care Teams Records Management Specialist Relationship Specialty Start Date End Date Farhana Horn DO [address] [place] [address] PCP - General Family Medicine 09/09/18 documented as of this encounter
--- OUTSIDE RECORDS SUMMARY | 2024-10-21 12:48 | XMS_ITS | Encounter Summary ---
Author Organization [employer] [facility] Address [address] [place] [address] [address] [address] Care Team Providers Care Information Technology Instructor Name Role Phone Farhana Horn DO Primary Care Provider [phone] Encounter Details Date Type Department Care Team (Late Contact Info) Description 09/12/2022 Orders Only [facility] MEDICINE [address] [place] [address] Farhana Horn DO [address] [place] [address] Social History Tobacco Use Types Packs/Day Years [...] Description 02/12/2025 10:00 AM EDT Office Visit [facility] OPTOMETRY [address] [place] [address] Steven, Danette, OD [address] [place] [address] documented as of this encounter Visit Diagnoses Not on filedocumented in this encounter Care Teams Information Technology Instructor Relationship Specialty Start Date End Date Farhana Horn DO [address] [place] [address] PCP - General Family Medicine 09/09/18 documented as of this encounter
--- OUTSIDE RECORDS SUMMARY | 2024-10-21 12:48 | XMS_ITS | Clinical Summary ---
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 Do not crush, chew, or split. 180 tablet 1 023 Active acetaminophen (Tylenol 8 Hour) 650 MG ER tabletIndications: Pain take 1 Tablet by oral route every 8 hours as needed as needed for PAIN AND/OR FEVER 100 tablet 1 023 Active diclofenac (Voltaren) 50 MG EC tablet take 1 tablet by oral route 2 times every day as needed for Pain 60 tablet 1 023 Active amitriptyline (Elavil) 150 MG tablet TOME TIERA TABLETA VIA ORAL AL ACOSTARSE 023 Active senna (Senokot) 8.6 MG tablet TOME DOS TABLETAS VIA ORAL CADA JADYN AL ACOSTARSE 023 Active sucralfate (Carafate) 1 g tablet TOME TIERA TABLETA VIA ORAL AL ACOSTARSE 023 Active propranolol LA (Inderal LA) 120 MG 24 hr capsule TOME TIERA CAPSULA VIA ORAL CADA JADYN 023 Active GAS RELIEF 125 MG capsule TAKE ONE CAPSULE BY MOUTH 2 TO 4 TIMES A DAY NEEDED FOR ABDOMINAL DISTENTION. 023 Active triamcinolone (Kenalog) 0.1 % ointment Apply topically if needed in the morning and at bedtime for rash. 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 90 tablet 3 024 Active Calcium Carb-Cholecalcifer ol 600-10 MG-MCG tabletIndications: Osteopenia, unspecified location Take 1 tablet by mouth 2 times daily. 60 tablet 11 024 Active cholecalciferol (Vitamin D-3) 50 MCG (2000 UT) capsule Take 1 capsule (50 mcg) by mouth in the morning. 30 capsule 11 024 12/08 Active polycarbophil (FiberCon) 625 MG tablet Take 1 tablet (625 mg) by mouth 2 times daily. 180 tablet 1 024 12/08 Active Saccharomyces boulardii (probiotic) 250 MG capsule Take 1 capsule (250 mg) by mouth in the morning. 90 capsule 1 024 12/08 Active meclizine (Antivert) 25 MG tablet Take 1 tablet (25 mg) by mouth if needed in the morning, at noon, and at bedtime for dizziness. 30 tablet 2 024 Active magnesium oxide (Mag-Ox) 400 MG tablet Take 1 tablet (400 mg) by mouth Once per day. 30 tablet 11 024 04/14 Active baclofen (Lioresal) 20 MG tablet take 1 tablet by oral route 3 times every day as needed for MM SPASM/PAIN 60 tablet 5 024 Active atorvastatin (Lipitor) 20 MG tabletIndications: Hyperlipidemia, unspecified hyperlipidemia type TAKE ONE TABLET BY MOUTH AT BEDTIME 90 tablet 1 024 Active Trulicity 0.75 MG/0.5ML solution auto-injector INJECT ONE PEN (=0.75MG) SUBCUTANEOUSLY ONCE A WEEK DIRECTED 2 mL 3 025 Active gabapentin (Neurontin) 400 MG capsule TAKE ONE CAPSULE BY MOUTH TWICE A DAY AND TAKE TWO CAPSULES AT BEDTIME. 120 capsule 5 025 Active gabapentin (Neurontin) 400 MG capsule take 1 Capsule by oral route BID and 2 at bedtime 120 capsule 5 024 09/22 Discontinued Active Problems Problem Noted Date Diagnosed Date Healthcare maintenance 12/09/2023 Assessment & Plan (12/09/2023 2:24 PM EDT): -s/p flu vaccine JUL 2023 -s/p COVID vaccine JUL 2023 -s/p Tdap FEB 2021 -PCV20 today -s/p Shingrix Nov 2021 -Hep B immune -colonoscopy with diverticulosis January 2019, repeat 5 years per GI -mammo BIRADS 10 SEP 2023 -pap nml/HPV negative JUL 2020 with [employer]IG[employer]IST -DEXA with osteopenia JUL 2023 -STI/HIV screen negative Jun 2022 Closed fracture of left ankle with routine heali ng 12/09/2023 Assessment & Plan (12/09/2023 2:21 PM EDT): With continued swelling and discomfort -L-ankle XR with subtle cortical irregularity along the dorsal surface of the talus Jul 2023 -MRI L-ankle with non-displaced calcaneal process fracture with osseous contusions and probable grade-2 sprain/partial tears AUG 2023 -encouraged tylenol and diclofenac gel prn -cont lidocaine patch prn -encouraged ice therapy -encouraged eval with [facility] -will check status of referral to ortho Obstructive sleep apnea 03/15/2023 Assessment & Plan (12/09/2023 2:18 PM EDT): s/p CPAP titration Aug 2019 -cont CPAP nightly Nephrolithiasis 03/15/2023 Assessment & Plan (12/09/2023 2:18 PM EDT): s/p cystoscopy with stent placement and removal MAY 2022 -renal US with 3mm stone February 2023 -f/u with urology as scheduled, review next visit* Type 2 diabetes mellitus 03/15/2023 Assessment & Plan (12/09/2023 2:16 PM EDT): A1c at-goal -cont dietary changes -cont metformin nightly -cont trulcity weekly -cont regular blood sugar monitoring -cont lipitor nightly -s/p optho eval Apr 2023 at [facility] -foot exam next visit* Allergic rhinitis 03/15/2023 Assessment & Plan (12/09/2023 2:19 PM EDT): controlled -cont clairitin and flonase daily -cont alaway drops prn History of fusion of cervical spine 03/15/2023 Osteoarthritis 01/29/2023 Eczema 01/29/2023 Hyperlipidemia 07/01/2018 Assessment & Plan (12/09/2023 2:17 PM EDT): LDL improved JUL 2023 -cont lipitor nightly Major depression, recurrent, chronic 08/22/2015 Assessment & Plan (12/09/2023 2:16 PM EDT): -she denies any current SI/HI -she has the number for crisis and contracts for safety -she is not interested in med mgmt -review therapist next visit* Degenerative disc disease, cervical 08/22/2015 Adrenal nodule 08/22/2015 Assessment & Plan (12/09/2023 2:20 PM EDT): -keep upcoming CT abd as scheduled -will re-refer to endo prn Chronic migraine 08/22/2015 Assessment & Plan (12/09/2023 2:17 PM EDT): With recent worsening -cont amitriptyline nightly with inderal daily -restart fioricet prn acute JUAREZ -f/u with neurology as scheduled -advised contact [facility] if no improvement Irritable bowel syndrome 08/22/2015 Chronic gastroesophageal reflux disease 08/22/20 15 Assessment & Plan (12/09/2023 2:18 PM EDT): with IBS and chronic constipation, awaiting repeat EGD/colonoscopy -EGD with chronic gastritis and balloon dilation MAR 2021 -BA swallow with severe GERD, nml esophageal motility upright, abnml esophageal motility in prone position, and tiny, sliding hiatal hernia MAY 2021 -cont protonix BID -cont sucralfate nightly -cont senna prn -cont miralax daily prn -f/u with GI as scheduled Essential hypertension 08/22/2015 Assessment & Plan (12/09/2023 2:17 PM EDT): BP controlled -cont current med regimen -Cr/GFR and urine microalbumin nml JUL 2023 -there is nml screening EKG in chart -optho as above Resolved Problems Problem Noted Date Diagnosed Date Resolved Date Viral upper respiratory tract infection 01/29/2023 03/15/2023 Lower urinary tract symptoms 01/29/2023 03/15/2023 Elevated fasting glucose 08/22/201503/2023 Encounters Date Type Department Care Team Description 10/15/2024 Telephone [facility] MEDICINE [address] [place] [address] Sudha Doss [place] Recall Letter (Recall Letter sent 10/15/24.) 09/21/2024 Refill [facility] [address] [place] [address] Farhana Horn DO 09/08/2024 Refill [facility] [address] [place] [address] Farhana Horn DO 09/04/2024 Orders Only GENERIC EXTERNAL DATA DEPARTMENT Provider, Generic External Data from Last 3 Months Immunizations Name Administration Dates Next Due Hep B, Adolescent or Pediatric 11/03/2008,2007,12/30/2007 Influenza Injectable Quadriv alant Preservative Free IIV4 MDCK 07/14/2020 Influenza injectable quadriv alent IIV4 with preservative 07/01/2018,08/05/2017,06/11/2016,2014 Influenza injectable quadriv alent preservative free 07/26/2023,07/03/2022,07/10/2021,2018 Influenza, IIV3, injectable 06/07/2014,1 ,05/31/2010,2008 Influenza, Split (incl. lisy fied surface antigen) 06/24/2013,06/13/2012 Pfizer Covid-19 Vaccine 12+ 07/26/2023 Pneumococcal Conjugate PCV 20 12/09/2023 Td (adult), 5 Lf tetanus tox oid, preservative free, adsorbed 07/12/2016 Tdap 02/26/2021,01/05/2010 Zoster, Recombinant 11/16/2021,09/12/2021 Social History Tobacco Use Types Packs/Day Years Used Date Smoking Tobacco: Never Passive Smoke Exposure: Never Smokeless Tobacco: Never Tobacco Cessation:Counseling Given: Not Answered Alcohol Use Standard Drinks/Week Comments Never 0 [...] Orientation Straight 07/09/2022 10 :14 AM EDT Last Filed Vital Signs Vital Sign Reading Time Taken Comments Blood Pressure 124/82 04/14/2024 11:12 AM EDT Pulse 72 04/14/2024 11:12 AM EDT Temperature 36.4 ??C (97.5 ??F) 04/14/2024 11:12 AM E DT Respiratory Rate 16 04/14/2024 11:12 AM EDT Oxygen Saturation 98% 12/09/2023 10:17 AM EDT Inhaled Oxygen Concentration - - Weight 72.2 kg (159 lb 3.2 oz) 04/14/2024 11:12 AM EDT Height 152.4 cm (5') 04/14/2024 11:12 AM EDT Body Mass Index 31.09 04/14/2024 11:12 AM EDT Plan of Treatment Upcoming Encounters Date Type Department Care Team (Late st Contact Info) Description 02/12/2025 10:00 AM EDT Office Visit [facility] OPTOMETRY [address] [place] [address] Steven, Danette, OD [address] [place] [address] Health Maintenance Due Date Last Done Comments CT Colonography 1968 FIT DNA/Cologuard 1968 FIT 1968 FOBT 1970 Sigmoidoscopy 1968 Diabetes: Foot Exam 1978 Alcohol/Substance Use Screening 1980 Hepatitis B Vaccines (1 of 3 - 19+ 3-dose series) 1987 11/03/2008, 03/09/2008, 12/30/2007 Pap Smear 1989 Colonoscopy 01/28/2024 01/27/2019 Colorectal Cancer Screening 01/28/2024 COVID-19 Vaccine ( season) 2024 07/26/2023, 07/06/2022, 09/12/2021, Additional history exists Influenza Vaccine (#1) 2024 , 07/03/2022, 07/10/2021, Additional history exists SDOH Screening 05/21/2024 05/21/2023 Diabetes: Urine Protein Screening 07/26/2024 07/26/2023, 01/25/2021 Lipid Panel 07/26/2024 07/26/2023, 06/11, 01/25/2021 Diabetes: Hemoglobin A1C 10/15/2024 024, 12/09/2023, 07/26/2023, Additional history exists Depression Screening 12/08/2024 12/09/2023, 12/09/19 Tobacco Screening 04/14/2025 04/14/2024 Eye Exam 04/25/2025 04/25/2023, 04/09, 04/25/2023, Additional history exists Cervical Cancer Screening 08/01/2025 HPV/Cotest 08/01/2025 08/01/2020, 07/11, 03/07/2018 Mammogram 09/23/2025 09/23/2024, 10/2023, 09/07/2022, Additional history exists DTaP/Tdap/Td Vaccines (4 - Td or Tdap) 02/26/2031 02/26/2021, 07/12/2016, 01/05/2010 RSV Patients and Patients Aged 60 years or older (1 - 1-dose 75+ series) 2043 Zoster Vaccines Completed 11/16/2021, 09/12/2021 HIV Screening Completed 07/09/2022, 07/11, 01/25/2021 Hepatitis C Screening Completed 07/09/2022 , 08/02/2021, 01/25/2021 Pneumococcal Vaccine: 50+ Years Completed 12/09/2023 HIB Vaccines Aged Out No longer eligi ble based on patient's age to complete this topic HPV Vaccines Aged Out No longer eligi ble based on patient's age to complete this topic Hepatitis A Vaccines Aged Out No long er eligible based on patient's age to complete this topic IPV Vaccines Aged Out No longer eligi ble based on patient's age to complete this topic Meningococcal Vaccine Aged Out No dhaval orquidea eligible based on patient's age to complete this topic RSV under 20 months Aged Out No longe r eligible based on patient's age to complete this topic Rotavirus Vaccines Aged Out No longer eligible based on patient's age to complete this topic Procedures Procedure Name Priority Date/Time Associated Diagnosis Comments BI MAMMOGRAM SCREENING TOMOSYNTHESIS BILATERAL Routine 09/23/2024 10:30 AM EST HEMATOXYLIN AND EOSIN STAIN Routine 09/04/2024 10:52 AM EST GLUCOSE, WHOLE BLOOD Routine 09/04/2024 10:10 AM EST POCT GLYCATED HEMOGLOBIN, TOTAL Routine 04/14/2024 11:30 AM EDT Type 2 diabetes mellitus without complication, without long-term current use of insulin (CMS/HCC) ALBUMIN, RANDOM URINE W/CREATININE Routine 07/26/2023 12:26 PM EST LIPID PANEL, STANDARD Routine 07/26/2023 12:23 PM EST Type 2 diabetes mellitus without complication, without long-term current use of insulin (CMS/HCC) ZZZ HISTORICAL HEPATITIS C AB W/REFL TO HCV RNA, QN, PCR Routine 07/09/2022 8:24 AM EDT HIV 1/2 ANTIGEN/ANTIBODY, FOURTH GENERATION W/RFL Routine 07/09/2022 8:24 AM EDT ZZZ HISTORICAL HPV E6/E7 RFLX BAKARI 16 18/45 Routine 08/01/2020 3:13 PM EST HM COLONOSCOPY Routine 01/27/2019 8:43 AM EDT from Last 3 Months or Most Recently Relevant to Health Maintenance Results * BI Mammogram Screening Tomosynthesis Bilateral (09/23/2024 10:30 AM EST) Anatomical Region Laterality Modality Breast Bilateral Mammography 09/23/2024 10:3 0 AM EST Narrative 10/04/2024 9:14 AM EST ? [facility] ? [address] ?[place] [address] ? Mammography Report ? Signed ? Patient: Kwan,Tri ?MR#: [id number] ?? 63 ? : 1970 ?Acct:[id number] ? Age/Sex: 53 / F ?ADM Date: 09/23/24 ? Loc: HO.MAMMO ? Attending Dr: Farhana Horn DO ? Ordering Physician: Farhana Horn DO ?Results: 1N ?? egative ? Date of Service: 09/23/24 ?Follow Up: 1 Year From Orig ?? inal Mammogram ? Procedure(s): MM tomosynthesis screening BI ?? Accession Number(s): [id number] ? cc: Farhana Horn DO ? EXAMINATION: ?? MM SCREENING DIGITAL BREAST TOMOSYNTHESIS, BILATERAL ? CLINICAL INFORMATION: ? Screening. Asymptomatic. ? COMPARISON: ?? Mammography: Comparison is made with available priors ? TECHNIQUE: ?? Digital breast mammography with tomosynthesis is performed in both the ?? craniocaudal and mediolateral oblique views along with computer-aided ?? detection (CAD). ? FINDINGS: ?? There are scattered areas of fibroglandular density (ACR BI-RADS breast ?? composition Category b). ? There are no significant masses, abnormal calcifications, or other ?? abnormalities. ? MM/MM tomosynthesis screening BI ?? IMPRESSION: ?? No mammographic evidence of malignancy. ? ASSESSMENT: ? BI-RADS BI-RADS 1 - Negative ? RECOMMENDATION: ?? Routine annual mammography screening. ? 1 year F/U ? This examination should not preclude the clinical evaluation of a ?? suspicious palpable abnormality. ? This patient's information was entered into a reminder system with a ?? target due date for their next mammogram. ? Electronically signed by: ??Francia Vázquez DO ??10/04/2024 09:11 AM EST ? Dictated By: ?Francia Vázquez DO ? Signed By: ?<Electronically signed by Francia Vázquez, DO in OV> ? 10/04/24 0911 ? DD/ 1030 ? TD/TT: 09/23/24 1041 ? Associate Professor Of Anthropology: ? Procedure Note Wai Bose - 10/04/2024 [place] [facility] [address] [place] [address] Mammography Report Signed Patient: Wang Bowens#: [id number] 63 : 1970Acct:[id number] Age/Sex: 53 / FADM Date: 09/23/24 Loc: HO.MAMMO Attending Dr: Farhana Horn DO Ordering Physician: Farhana Hornults: 1N egative Date of Service: 09/23/24Follow Up: 1 Year From Orig inal Mammogram Procedure(s): MM tomosynthesis screening BI Accession Number(s): [id number] cc: Farhana Horn DO EXAMINATION: MM SCREENING DIGITAL BREAST TOMOSYNTHESIS, BILATERAL CLINICAL INFORMATION: Screening. Asymptomatic. COMPARISON: Mammography: Comparison is made with available priors TECHNIQUE: Digital breast mammography with tomosynthesis is performed in both the craniocaudal and mediolateral oblique views along with computer-aided detection (CAD). FINDINGS: There are scattered areas of fibroglandular density (ACR BI-RADS breast composition Category b). There are no significant masses, abnormal calcifications, or other abnormalities. MM/MM tomosynthesis screening BI IMPRESSION: No mammographic evidence of malignancy. ASSESSMENT: BI-RADS BI-RADS 1 - Negative RECOMMENDATION: Routine annual mammography screening. 1 year F/U This examination should not preclude the clinical evaluation of a suspicious palpable abnormality. This patient's information was entered into a reminder system with a target due date for their next mammogram. Electronically signed by: Francia Vázquez DO 10/04/2024 09:11 AM EST Dictated By: Francia Vázquez DO Signed By: <Electronically signed by Francia Vázquez DO in OV> 10/04/24 0911 DD/ 1030 TD/TT: 09/23/24 1041 Associate Professor Of Anthropology: Farhana Horn DO IMG BI PROCEDURES Edited Res ult - Final * Hematoxylin and Eosin Stain (09/04/2024 10:52 AM EST) 09/04/2024 10:5 2 AM EST 09/04/2024 11:33 AM EST [facility] - 09/11/2024 8:22 AM EST ----- ------- Name: Tri Bowens ? Age/Sex: 53/F ? : 1970 Unit#: [id number] ?? Attend Dr: Nani Bonner MD ?Re09/04/24 ?Status: DEP SDC ? Location: HO.SSS ?Disch: ? ----- ------- SPEC : [id number] ? RECD: 09/04/24 ? STATUS: ??SOUT ? REQ NUM: [id number] ? ANITA: 09/04/24-1051 ? SUBM DR: Nani Bonner MD ? ENTERED: ??09/04/24 ?SP TYPE: Surgical ? OTHR DR: Farhana Horn DO ? ORDERED: ??HE Stain/9, Gross Micro L4/3, IHC, H. pylori ?Addendum Addendum ??1 ?Entered: 09/11/24 Immunostain for H. pylori on A is negative. ?? Control stains appropriately. Addendum Signed (signature on file) Deb Prater 09/11/24821 ? ----- ------- ? Diagnosis ?? A. ??Stomach, random, biopsy: ??Gastric antral and body mucosa with minimal chronic ?? inactive gastritis; negative for intestinal metaplasia and dysplasia. ? B. ??Esophagus, lower, biopsy: ??Squamous mucosa with no specific change; no columnar ?? mucosa present. ? C. ??Esophagus, middle, biopsy: ??Squamous mucosa with no specific change; no columnar ?? mucosa present. ? Comment: ?? (A): ??Immunostain for H. pylori pending; addendum to follow. . ?Clinical History Pre-Op Dx: ??Dysphagia Post-Op Dx: Gastritis, hiatal hernia, cricopharyngeal narrowing ?Microscopic Description Microscopic sections reviewed. ? Material Received ?? A. Random gastric biopsies ?? B. Lower esophagus biopsies ?? C. Middle esophagus biopsies ? CONTINUED ON NEXT PAGE ----- ------- Name: Tri Bowens ? Age/Sex: 53/F ? : 1970 Unit#: [id number] ?? Attend Dr: Nani Bonner MD ?Re09/04/24 ?Status: DEP SDC ? Location: HO.SSS ?Disch: ? ----- ------- SPEC : [id number] ? RECD: 09/04/24-1132 ? STATUS: ??SOUT ? REQ NUM: [id number] ? ANITA: 09/04/24-1052 ? SUBM DR: Nani Bonner MD ? ENTERED: ??09/04/24-0 ?SP TYPE: Surgical ? OTHR DR: Farhana Horn DO ? ORDERED: ??HE Stain/9, Gross Micro L4/3, IHC, H. pylori ? Gross Description Received in three parts. Part A: ??Received in formalin labeled ?random gastric biopsies? are 4 wong-pink irregular tissue fragments ranging from 0.15-0.25 cm, submitted in toto in a cassette labeled A. Part B: ??Received in formalin labeled ?lower esophagus biopsies? are 4 pedroza-white irregular and rectangular tissue fragments ranging from 0.15-0.35 cm, submitted in toto in a cassette labeled B. Part C: ??Received in formalin labeled ?middle esophagus biopsies? are 3 pale, pedroza-white irregular and rectangular tissue fragments ranging from minute to 0.25 cm, submitted in toto in a cassette labeled Sam BARTLETT Special studies ordered and performed: Immunostain for H. pylori on A1. Copies To: ?? Farhana Horn DO ?? [facility] ?? [address] [facility] ?? [place] [address] ?? [phone] ?? Nani Bonner MD ?? [facility] ?? [address] ?? [place] ?? [phone] ?? [email or web address] ----- ------- Signed (signature on file) Deb Prater 09/07/24 1557 ? ----- ------- ? END OF REPORT ? us Generic External Data Provider LAB BLOOD ORDERAB LES Final Result [facility] [address] [place], [place] [phone] * Glucose, Whole Blood (09/04/2024 10:10 AM EST) Glucose, Whole Blood 107 60 - 115 mg/dL [facility] Comment:METER #: [id number] 09/04/2024 10:1 0 AM EST 09/04/2024 10:18 AM EST us Generic External Data Provider LAB BLOOD ORDERAB LES Final Result Performing Organization Address [facility] Co de Phone Number [facility] [address] [place] [phone] * (ABNORMAL) POCT HGB A1C (04/14/2024 11:30 AM EDT) Hemoglobin A1C 6.2(A) 4.0 - 6.0 % QC Media Lot # [id number] Lot# Expiration Date Blood 04/14/2024 11:3 0 AM EDT us Farhana Horn DO POINT OF CARE TEST ENTER/PAUL T ORDERABLES Final Result * Albumin, Random Urine W/Creatinine (07/26/2023 12:26 PM EST) Creatinine, Urine 182.16 mg/dL [facility] Microalbumin Urine 14.0 mg/L [facility] Microalbum Creatinine Ratio Ur 7.6 <30 ug/mg cr [facility] Comment:Albumin/Creatinine R atio Reference Ranges: Normal: < 30 ug/mg creatinine Microalbuminuria: 30 - 300 ug/mg creatinineClinical Albuminuria: > 300 ug/mg creatinine 07/26/2023 12:2 6 PM EST 07/26/2023 1:28 PM EST us Farhana Horn DO LAB URINE ORDERABLES Final R esult Performing Organization Address City/[facility]/ZIP Co de Phone Number [facility] [address] [place] [phone] * (ABNORMAL) Lipid Panel, Standard (07/26/2023 12:23 PM EST) Triglycerides 132 <150 mg/dL [facility] Comment:Desirable Triglyceri de: less than 150 mg/dLBorderline High Triglyceride 150-199 mg/dLHigh Triglyceride: 200-499 mg/dLVery High Triglyceride: greater than or equal to 5OO mg/dL Cholesterol 150 <200 mg/dL [facility] Comment:Desirable Cholestero l: less than 200 mg/dLBorderline High Cholesterol: 200-239 mg/dLHigh Cholesterol: greater than 239 mg/dL LDL Cholesterol Calculated 85 <100 mg/dL [facility] Comment:Desirable LDL: less than 100 mg/dLNear Optimal/Above Optimal LDL: 110- 129 mg/dLBorderline High LDL: 130-159 mg/dLHigh LDL: 160-189 mg/dLVery High LDL: greater than or equal to 190 mg/dL HDL Cholesterol 39(L) >40 mg/dL [facility] Comment:Desirable HDL: great er than 40 mg/dL Note: This HDL assay may give artificially low results in patients with liver disease. Blood Venous blood specimen / Unknown 07/26/2023 12:23 PM EST 07/26/2023 1:26 PM EST us Farhana Horn DO LAB BLOOD ORDERABLES Final R esult [facility] [address] [place] [address] [phone] * HEPATITIS C AB W/REFL TO HCV RNA, QN, PCR (07/09/2022 8:24 AM EDT) HEPATITIS C ANTIBODY NON-REACTI VE NON-REACT ITZEL [facility] INDEX 0.04 <1.00 [facility] Comment: ?? HCV antibody was non-reactive. There is no laboratory ?? evidence of HCV infection. ?? In most cases, no further action is required. However, if recent HCV exposure is suspected, a test for HCV RNA (test code 73012) is suggested. ?? For additional information please refer to http://[email or web address]/faq/NUW15q3 (This link is being provided for informational/ educational purposes only.) ?? 07/09/2022 8:24 AM EDT Farhana Horn DO HISTORICAL/NON ORDERABLE LAB S Final Result [facility]VERT[facility]GACY LABS * HIV 1/2 ANTIGEN/ANTIBODY,FOURTH GENERATION W/RFL (07/09/2022 8:24 AM EDT) HIV-1/2 ANTIGEN AND ANTIBODIES, 4TH GENERATION W/ REFLEX NON-REACT ITZEL NON-REACT ITZEL [facility] Comment: HIV-1 antigen and HIV-1/HIV-2 antibodies were not detected. There is no laboratory evidence of HIV infection. ?? PLEASE NOTE: This information has been disclosed to you from records whose confidentiality may be protected by state law. ??If your state requires such protection, then the state law prohibits you from making any further disclosure of the information without the specific written consent of the person to whom it pertains, or as otherwise permitted by law. A general authorization for the release of medical or other information is NOT sufficient for this purpose. ? For additional information please refer to http://[email or web address]/faq/TYT199 (This link is being provided for informational/ educational purposes only.) ? The performance of this assay has not been clinically validated in patients less than 2 years old. ?? 07/09/2022 8:24 AM EDT Farhana Horn DO LAB BLOOD ORDERABLES Final R esult CONVERTED LEGACY LABS * HPV E6/E7 RFLX BAKARI 16 18/45 (08/01/2020 3:13 PM EST) HPV 16 RNA [facility] HPV 18/45 RNA [facility] HPV E6 E7 ADD TNP [facility] HPV mRNA E6/E7 rflx Not Detected Not Detected [facility] Comment: This test was performed using the APTIMA HPV Assay ([employer] This assay detects E6/E7 viral messenger RNA (mRNA) from 14 high-risk HPV types (16,18,31,33,35,39,45,51,52,56,58,59,66,68). The analytical performance characteristics of this assay have been determined by [employer]. The modifications have not been cleared or approved by the FDA. This assay has been validated pursuant to the CLIA regulations and is used for clinical purposes. THIS TEST WAS PERFORMED AT: [facility] [address] [place] [address] [address] [place], [place] ??[phone] EMLI WORKMAN MD 08/01/2020 3:13 PM EST Fabio Morin MD HISTORICAL/NON ORDERABLE LABS Fi nal Result [facility] [address] * Hm Colonoscopy (01/27/2019 8:43 AM EDT) Historical Provider HEALTH MAINTENANCE Final Result from Last 3 Months or Most Recently Relevant to Health Maintenance Insurance [facility] Care Teams Dieing Out Machine Operator Relationship Specialty Start Date End Date Farhana Horn DO [address] [place] [phone] PCP - General Family Medicine 09/09/18
--- OUTSIDE RECORDS SUMMARY | 2024-10-21 12:48 | XMS_ITS | Encounter Summary ---
Author Organization [employer] Address [address] [facility] 7t [place] [address] Care Team Providers Care Design Inserter Name Role Phone Farhana Horn DO Primary Care Provider + [phone] Encounter Details Date Type Department Care Team ([facility] st Contact Info) Description 08/08/2023 Telephone [facility] [address] [place] [address] Farahna Horn DO [address] [place] [address] Social History Tobacco Use Types Packs/Day Years Used Date Smoking Tobacco: Never Passive Smoke Exposure: Never Smokeless Tobacco: Never Alcohol Use Standard Drinks/Week Comments Never 0 (1 standard drink = 0.6 oz pur e alcohol) Depression Answer Date Recorded Patient Health Questionnaire-9 Score 24 05/21/2023 Housing Stability Answer Date Recorded What is [...] Answer Date Recorded Patient Health Questionnaire-2 Score 6 05/21/2023 Comments Unknown Sex and Gender Information Value Date Recorded Sex Assigned at Female 07/09/2022 10:14 AM EDT Legal Sex Female 10:14 AM EDT Gender Identity Female 07/09/2022 10:14 AM EDT Sexual Orientation Straight 07/09/2022 10 :14 AM EDT documented as of this encounter Miscellaneous Notes * Telephone Encounter - [facility] - 08/08/2023 9:58 AM EST Tc from pt called in inquiring about scheduling MR Ankle w/o contrast on 07/26/23 documented in this encounter Plan of Treatment Upcoming Encounters Date Type Department Care Team (Late st Contact Info) Description 02/12/2025 10:00 AM EDT Office Visit [facility] [address] [place], [place] [phone] Steven, Danette, OD [address] [place] [address] documented as of this encounter Visit Diagnoses Not on filedocumented in this encounter Additional Health Concerns Assessment Noted Time PHQ-9 Depression Total Score: 24 023 11:05 AM EDT documented as of this encounter Care Teams Design Inserter Relationship Specialty Start Date End Date Farhana Horn DO [address] [place] [address] PCP - General Family Medicine 09/09/18 documented as of this encounter
== END 2024-10-21 12:01 | disposition home or self-care (01) ==
PROVIDERS: PCP Family Medicine; Visit Provider Nurse Practitioner Family
DX: K21.9 Gastro-esophageal reflux disease without esophagitis (principal); K58.1 Irritable bowel syndrome with constipation; K57.90 Diverticulosis of intestine, part unspecified, without perforation or abscess without bleeding; K59.04 Chronic idiopathic constipation; R13.19 Other dysphagia
CPT/HCPCS: 99214

== ENCOUNTER → 2024-10-21 10:58 | Outpatient (BNVA) | payer MEDICAID, SELFPAY | PROVIDERS: PCP Family Medicine; Visit Provider Nurse Practitioner Family | DX: K21.9 Gastro-esophageal reflux disease without esophagitis (principal); K58.1 Irritable bowel syndrome with constipation; K57.90 Diverticulosis of intestine, part unspecified, without perforation or abscess without bleeding; K59.04 Chronic idiopathic constipation; R13.19 Other dysphagia | CPT/HCPCS: 99212 ==

== ENCOUNTER 2024-10-27 08:46 | Outpatient (AMB) | payer MEDICAID, SELFPAY ==
[2024-10-27 08:52] VITALS: BP 122/86; BMI 31.2
--- NOTE | 2024-10-27 08:52 | A.OFFVIS_ITS ---
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 No complaints. Last Pap/HPV was negative in 07/29 Last Mammogram was BI-RADS 1 in 10/03 Last Colonoscopy was in 04/01 [facility] Medical History Diverticulosis Renal calculi Gastric varices Migraine headache Depression GERD (gastroesophageal reflux disease) Diabetes mellitus Adrenal nodule IBS (irritable bowel syndrome) HTN (hypertension) Hyperlipemia Surgical History History of surgery History of esophagogastroduodenoscopy (EGD) Hx of colonoscopy Hx of tubal ligation Hx of discectomy Family History Father Hx of type 1 diabetes mellitus History of epilepsy Mother Family history of high blood pressure Hx of cancer of uterus Social History Household Members Other:: daughter Housing: House Alcohol intake: never Patient Tobacco Use Status: Never used Tobacco Current occupational status: employed 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 Sexual orientation: Straight/Heterosexual Gender identity: Female Female Reproductive History Menstrual Age of Menarche: 10 control method: permanent sterilization Total pregnancies: 3 Full term: 3 Number of Living Children: 3 Date of last pap smear: 08/02/20 Date of Mammogram: 09/23/24 Review of Systems Const All systems reviewed & are unremarkable except as noted in HPI and below Card Reports as per HPI Resp Reports as per HPI GI Reports as per HPI and Reports no additional complaints Reports as per HPI Physical Exam Vital Signs: Last Vital Signs BP 122/86 10/27/24 08:52 BMI result Body Mass Index 31.2 Const General: cooperative, healthy appearing and comfortable Chest Chest palpation & inspection: normal inspection of the chest and normal palpation of entire chest wall Breast/axilla inspection: normal inspection of the breasts and normal inspection of the axillae Breast/axilla palpation: normal palpation of the breasts, normal palpation of the axillae and no axillary lymphadenopathy Resp Effort & Inspection: normal respiratory effort Auscultation: clear to auscultation bilaterally Percussion: percussion normal Cardio Palpation: normal PMI Rate: regular rate Rhythm: regular rhythm Heart sounds: no murmurs and no rubs Peripheral pulses: Peripheral pulses 2+ throughout GI Inspection: Yes normal to inspection Palpation (GI): Soft to palpation, nontender, no guarding, not rigid and No hepatosplenomegaly present Percussion: Yes normal to percussion Auscultation: normal bowel sounds Rectal Exam - Female: deferred General: Yes bladder normal to palpation External Female Exam: No lesion Speculum Exam - Vagina: normal appearance of the vagina, normal palpation, normal vaginal discharge and not erythematous Speculum Exam - Cervix: normal appearance of the cervix and normal palpation Bimanual exam- vagina & uterus: normal bimanual exam, normal palpation, uterine size normal, bladder normal to palpation, consistency normal and normal palpation Bimanual Exam- Adnexa, other: normal adnexae, no masses and no tenderness Assessment & Plan Assessment & Plan (1) Well woman exam: Code(s): Z01.419 - Encounter for gynecological examination (general) (routine) without abnormal findings Category: Medical Plan: Co testing done. Counseled the patient about the recommended dietary allowance of 1200 mg of Calcium & 600 IU of vitamin D. Instructions given the patient to schedule next screening Mammogram in 10/03. The patient was instructed to perform monthly self-breast exams and schedule annual exam in a year. All questions answered and the patient verbalized understanding. Coding Level of Care Code Est Pt Prev Care 40-64y(72050) Diagnoses Well woman exam Z01.419
== END 2024-10-27 09:51 | disposition home or self-care (01) ==
LOC: HO.HWS 08:46
PROVIDERS: PCP Family Medicine; Visit Provider Obstetrics & Gynecology
DX: Z01.419 Encounter for gynecological examination (general) (routine) without abnormal findings (principal)
CPT/HCPCS: 99396; 99459

== ENCOUNTER 2024-10-27 08:46 | Outpatient (REF) | payer MEDICAID, SELFPAY ==
--- OUTSIDE RECORDS SUMMARY | 2024-10-27 09:42 | XMS_ITS | Encounter Summary ---
Author Organization [employer] Address [address] [place] [address] [address] [place] [address] Care Team Providers Care Stitching Machine Feeder Or Offbearer Name Role Phone Farhana Horn DO Primary Care Provider + [phone] Reason for Visit * Reason Comments Med Refill Encounter Details Date Type Department Care Team (Late st Contact Info) Description 12/13/2022 Refill [facility] [address] [place], [place] [phone] [facility] [address] [place] [address] Hyperlipidemia, unspecified hyperlipidemia type Social History Tobacco Use Types Packs/Day Years Used Date Smoking Tobacco: Never Assessed Comments Unknown Sex and Gender Information Value Date Recorded Sex Assigned at Female 07/09/2022 10:14 AM EDT Legal Sex Female 10:14 AM EDT Gender Identity Female 07/09/2022 10:14 AM EDT Sexual Orientation Straight 07/09/2022 10 :14 AM EDT documented as of this encounter Plan of Treatment Not on file documented as of this encounter Visit Diagnoses Diagnosis Hyperlipidemia, unspecified hyperlipidemia type documented in this encounter Care Teams Stitching Machine Feeder Or Offbearer Relationship Specialty Start Date End Date Farhana Horn DO [address] [place] [address] PCP - General Family Medicine 09/09/18 documented as of this encounter
--- OUTSIDE RECORDS SUMMARY | 2024-10-27 09:42 | XMS_ITS | Clinical Summary ---
Author Organization [employer] Address [address] [place] [address] 7t [place] [address] Care Team Providers Care Lead Security Officer Name Role Phone Farhana Horn Primary Care Provider [phone] Allergies Active Allergy Reactions Criticality Noted Date [...] 2 diabetes mellitus without complication, unspecified whether long filler cigar roller machine insulin use (CMS/HCC) Take 1 tablet by mouth in the evening with meals 90 tablet 1 024 Active Calcium Carb-Cholecalcifer ol 600-10 MG-MCG tabletIndications: Osteopenia, unspecified location Take 1 tablet by mouth 2 times daily. 60 tablet 11 024 Active cholecalciferol (Vitamin D-3) 50 MCG (2000 UT) capsule Take 1 capsule (50 mcg) by mouth in the morning. 30 capsule 024 12/08 Active polycarbophil (FiberCon) 625 MG tablet Take 1 tablet (625 mg) by mouth 2 times daily. 180 tablet 024 12/08 Active Saccharomyces boulardii (probiotic) 250 MG capsule Take 1 capsule (250 mg) by mouth in the morning. 90 capsule 024 12/08 Active magnesium oxide (Mag-Ox) 400 MG tablet [...] AT BEDTIME. 120 capsule 5 025 Active meclizine (Antivert) 25 MG tablet TAKE 1 TABLET BY MOUTH IF NEEDED IN THE MORNING, AT NOON AND AT BEDTIME FOR DIZZINESS 30 tablet 2 025 Active loratadine (Claritin) 10 MG tabletIndications: Seasonal allergic rhinitis, unspecified trigger TAKE ONE TABLET BY MOUTH EVERY DAY IN THE MORNING 90 tablet 3 025 Active butalbital-acetami nophen-caffeine 50-325-40 MG tablet TAKE ONE TABLET BY MOUTH EVERY 4 HOURS NEEDED FOR MIGRAINE. 20 tablet 2 025 Active loratadine (Claritin) 10 MG tabletIndications: Seasonal allergic rhinitis, unspecified trigger Take 1 tablet (10 mg) by mouth in the morning. 90 tablet 3 024 10/23 Discontinued butalbital-acetami nophen-caffeine 50-325-40 MG tablet Take 1 tablet by mouth every 4 (four) hours if needed for migraine. 20 tablet 2 024 10/23 Discontinued meclizine (Antivert) 25 MG tablet Take 1 tablet (25 mg) by mouth if needed in the morning, at noon, and at bedtime for dizziness. 30 tablet 2 024 10/23 Discontinued Active Problems Problem Noted Date Diagnosed Date Healthcare maintenance 12/09/2023 Assessment & Plan (12/09/2023 2:24 PM EDT): -s/p flu vaccine JUL 2023 -s/p COVID vaccine JUL 2023 -s/p Tdap FEB 2021 -PCV20 today -s/p Shingrix Nov 2021 -Hep B immune -colonoscopy with diverticulosis January 2019, repeat 5 years per GI -mammo BIRADS 10 SEP 2023 -pap nml/HPV negative JUL 2020 with [facility] -DEXA with osteopenia JUL 2023 -STI/HIV screen [...] nightly -s/p optho eval Apr 2023 at [facility] -foot exam next visit* Allergic rhinitis [...] -f/u with neurology as scheduled -advised contact [facility] if no improvement Irritable bowel syndrome 08/22/2015 Chronic gastroesophageal reflux disease 08/22/20 Assessment & Plan (12/09/2023 2:18 PM EDT): [...] Encounters Date Type Department Care Team Description 10/23/2024 Refill [facility] [address] [place] [phone] Farhana Horn DO Seasonal allergic rhinitis, unspecified trigger 10/22/2024 2:00 PM EST Office Visit [facility] [address] [place] [address] Danette Harris, OD Diabetes type 2, no ocular involvement (CMS/HCC) (Primary Dx); Vitelliform lesion of macula; Headache, unspecified headache type; Presbyopia 10/22/2024 Travel 10/21/2024 Travel 10/15/2024 Telephone [facility] [address] [place] [address] Sudha Doss [place] Recall Letter (Recall Letter sent 10/15/24.) 09/21/2024 Refill [facility] [address] [place], [place] [phone] Farhana Horn, 09/08/2024 Refill [facility] [address] [place] [address] Farhana Horn, 09/04/2024 Orders Only GENERIC EXTERNAL DATA DEPARTMENT [...] 04/14/2024 11:12 AM EDT Plan of Treatment Health Maintenance Due Date Last Done Comments [...] history exists Depression Screening 12/08/2024 12/09/2023, 12/09/19 24 Cervical Cancer Screening 08/01/2025 HPV/Cotest 08/01/2025 08/01/2020, 07/11, 03/07/2018 Mammogram 09/23/2025 09/23/2024, 10/2023, 09/07/2022, Additional history exists Tobacco Screening 10/22/2025 10/22/2024 Eye Exam 10/22/2026 10/22/2024, 10/10, 10/22/2024, Additional history exists DTaP/Tdap/Td Vaccines (4 - [...] complication, without long-term current use of insulin ([facility]) ALBUMIN, RANDOM URINE W/CREATININE Routine 07/26/2023 12:26 PM EST LIPID PANEL, STANDARD Routine 07/26/2023 12:23 PM EST Type 2 diabetes mellitus without complication, without long-term current use of insulin (CMS/HCC) [facility] HISTORICAL HEPATITIS C AB W/REFL TO HCV RNA, QN, PCR Routine 07/09/2022 8:24 AM EDT HIV 1/2 ANTIGEN/ANTIBODY, FOURTH GENERATION W/RFL Routine 07/09/2022 8:24 AM EDT [facility] HISTORICAL HPV E6/E7 RFLX BAKARI 16 18/45 Routine 08/01/2020 3:13 PM EST HM COLONOSCOPY Routine 01/27/2019 8:43 AM EDT from Last 3 Months or Most Recently Relevant to Health Maintenance Results * BI Mammogram Screening Tomosynthesis Bilateral (09/23/2024 10:30 AM EST) Anatomical Region Laterality Modality Breast Bilateral Mammography 09/23/2024 10:3 0 AM EST Narrative 10/04/2024 9:14 AM EST ? [facility] [place] ? [address] ?[place] [address] ? Mammography Report ? Signed ? Patient: Kwan,Tri ?MR#: [id number] ?? 63 ? : 1970 ?Acct:[id number] ? Age/Sex: 53 / F ?ADM Date: /15/25 ? Loc: HO.MAMMO ? Attending Dr: Farhana Horn DO ? Ordering Physician: Farhana Horn DO ?Results: 1N ?? egative ? Date of Service: /15/25 ?Follow Up: 1 Year From Orig ?? inal Mammogram ? Procedure(s): MM tomosynthesis screening BI ?? Accession Number(s): [id number] ? cc: Farhana Horn DO ? EXAMINATION: [...] DD/ 1030 ? TD/TT: 09/23/24 1041 ? Missile Tracking Technician: ? Procedure Note Wai Bose - 10/04/2024 [place] [facility] [address] [place] [address] Mammography Report Signed Patient: Bekah BowensMR#: [id number] 63 : 1970Acct:[id number] Age/Sex: 53 / FADM Date: 09/23/24 Loc: HO.MAMMO Attending Dr: Farhana Horn DO Ordering Physician: Farhana Hornults: 1N egative Date of Service: 09/23/24Follow Up: 1 Year From Orig ina Mammogram Procedure(s): MM tomosynthesis screening BI Accession Number(s): [id number] cc: Farhana Horn DO EXAMINATION: MM SCREENING [...] 10/04/24 0911 DD/ 1030 TD/TT: 09/23/24 1041 Missile Tracking Technician: us Farhana Horn DO IMG BI PROCEDURES Edited Res ult - Final * Hematoxylin and Eosin Stain (09/04/2024 10:52 AM EST) 09/04/2024 10:5 2 AM EST 09/04/2024 11:33 AM EST [facility] - 09/11/2024 8:22 AM EST ----- ------- Name: Tri Bowens ? Age/Sex: 53/F ? : 1970 Unit#: [id number] ?? Attend Dr: Nani Bonner MD ?Re09/04/24 ?Status: DEP SDC ? Location: HO.SSS ?Disch: ? ----- ------- SPEC : [id number] ? RECD: 09/04/24 ? STATUS: ??SOUT ? REQ NUM: [id number] ? ANITA: 09/04/24-1052 ? SUBM DR: Nani Bonner MD ? ENTERED: ??09/04/24-1150 ?SP TYPE: Surgical ? OTHR DR: Farhana Horn DO ? ORDERED: ??HE Stain/9, Gross Micro L4/3, IHC, H. pylori ?Addendum Addendum ??1 ?Entered: 09/11/24 Immunostain for H. pylori on A is negative. ?? Control stains appropriately. Addendum Signed (signature on file) Deb Moi 09/11/24821 ? ----- ------- ? Diagnosis ?? [...] ? Age/Sex: 53/F ? : 1970 Unit#: [id number] ?? Attend Dr: Nani Bonner MD ?Re09/04/24 ?Status: DEP SDC ? Location: HO.SSS ?Disch: ? ----- ------- SPEC : [id number] ? RECD: 09/04/24 ? STATUS: ??SOUT ? REQ NUM: [id number] ? ANITA: 09/04/24-1052 ? SUBM DR: Nani Bonner MD ? ENTERED: ??09/04/24-1150 ?SP TYPE: Surgical ? OTHR DR: Farhana [...] submitted in toto in a cassette labeled C. CEDS Special studies ordered and performed: Immunostain for H. pylori on A1. Copies To: ?? Farhana Horn DO ?? [facility] ?? [address] ?? [place] [address] ?? [phone] ?? Nani Bonner MD ?? [facility] ?? [address] ?? [place] [address] ?? [phone] ?? [email or web address] ----- ------- Signed (signature on file) Deb Prater 09/07/24 1557 ? ----- ------- ? END OF REPORT ? Generic External Data Provider LAB BLOOD ORDERAB LES Final Result Performing Organization Address [facility] de Phone Number [facility] [address] [place] [phone] * Glucose, Whole Blood (09/04/2024 10:10 AM EST) Glucose, Whole Blood 107 60 - 115 mg/dL [facility] Comment:METER #: [id number] 09/04/2024 10:1 0 AM EST 09/04/2024 10:18 AM EST Generic External Data Provider LAB BLOOD ORDERAB LES Final Result Performing Organization Address [facility] de Phone Number [facility] [address] [place] [phone] * (ABNORMAL) POCT HGB A1C (04/14/2024 11:30 AM EDT) Hemoglobin A1C 6.2(A) 4.0 - 6.0 % QC Media Lot # [id number] Lot# Expiration Date [id number] Blood 04/14/2024 11:3 0 AM EDT Farhana Horn DO POINT OF CARE TEST ENTER/PAUL T ORDERABLES Final Result * Albumin, Random Urine W/Creatinine (07/26/2023 12:26 PM EST) Creatinine, Urine 182.16 mg/dL [facility] Microalbumin Urine 14.0 mg/L [facility] Microalbum Creatinine Ratio Ur 7.6 <30 ug/mg cr [facility] Comment:Albumin/Creatinine R atio Reference Ranges: Normal: < 30 ug/mg creatinine Microalbuminuria: 30 - 300 ug/mg creatinineClinical Albuminuria: > 300 ug/mg creatinine 07/26/2023 12:2 6 PM EST 07/26/2023 1:28 PM EST us Farhana Horn DO LAB URINE ORDERABLES Final R esult [facility] [address] [place] [phone] * (ABNORMAL) Lipid Panel, Standard (07/26/2023 12:23 PM EST) Triglycerides 132 <150 mg/dL [facility] Comment:Desirable Triglyceri de: less than 150 mg/dLBorderline High Triglyceride 150-199 mg/dLHigh Triglyceride: 200-499 mg/dLVery High Triglyceride: greater than or equal to 5OO mg/dL Cholesterol 150 <200 mg/dL [facility] Comment:Desirable Cholestero l: less than 200 mg/dLBorderline High Cholesterol: 200-239 mg/dLHigh Cholesterol: greater than 239 mg/dL LDL Cholesterol Calculated 85 <100 mg/dL [facility] Comment:Desirable LDL: less than 100 mg/dLNear Optimal/Above Optimal LDL: 110- 129 mg/dLBorderline High LDL: 130-159 mg/dLHigh LDL: 160-189 mg/dLVery High LDL: greater than or equal to 190 mg/dL HDL Cholesterol 39(L) >40 mg/dL [facility] Comment:Desirable HDL: great er than 40 mg/dL Note: This HDL assay may give artificially low results in patients with liver disease. Blood Venous blood specimen / Unknown 07/26/2023 12:23 PM EST 07/26/2023 1:26 PM EST Farhana Kory DO LAB BLOOD ORDERABLES Final R esult [facility] [address] [place] [address] [phone] * HEPATITIS C AB W/REFL TO [...] a test for HCV RNA (test code 07539) is suggested. ?? For additional information please refer to http://education.Zenoss/faq/EZE72w5 (This link is being provided for informational/ educational purposes only.) ?? 07/09/2022 8:24 AM EDT Farhana Kory DO HISTORICAL/NON ORDERABLE LAB S Final Result Performing Organization Address [facility] Co de Phone Number CONVERTED LEGACY LABS * HIV 1/2 ANTIGEN/ANTIBODY,FOURTH [...] ? For additional information please refer to http://education.[employer].CartiCure/faq/IIR398 (This link is being provided for informational/ educational purposes only.) ? The performance of this assay has not been clinically validated in patients less than 2 years old. ?? 07/09/2022 8:24 AM EDT Farhana Horn DO LAB BLOOD ORDERABLES Final R esult Performing Organization Address City/[facility]/ZIP Co de Phone Number CONVERTED LEGACY LABS * HPV E6/E7 RFLX BAKARI 16 18/45 (08/01/2020 3:13 PM EST) HPV 16 RNA [facility] HPV 18/45 RNA [facility] HPV E6 E7 ADD [facility] HPV mRNA E6/E7 rflx Not Detected Not Detected [facility] Comment: This test was performed using the APTIMA HPV Assay ([employer] This assay detects E6/E7 viral messenger RNA (mRNA) from 14 high-risk HPV types (16,18,31,33,35,39,45,51,52,56,58,59,66,68). The analytical performance characteristics of this assay have been determined by [employer]. The modifications have not been cleared or approved by the FDA. This assay has been validated pursuant to the CLIA regulations and is used for clinical purposes. THIS TEST WAS PERFORMED AT: [facility] [address] [place] [address],[address] [place], [place] ??[phone] MELI WORKMAN MD 08/01/2020 3:13 PM EST Fabio Morin MD HISTORICAL/NON ORDERABLE LABS Fi nal Result Performing Organization Address [facility]/ZIP Co de Phone Number [facility] [address] * Hm Colonoscopy (01/27/2019 8:43 AM EDT) Historical Provider HEALTH MAINTENANCE Final Result from Last 3 Months or Most Recently Relevant to Health Maintenance [place] [place] [address] C3 Care Teams Lead Security Officer Relationship Specialty Start Date End Date Farhana Horn DO [address] [place] [phone] PCP - General Family Medicine 09/09/18
--- OUTSIDE RECORDS SUMMARY | 2024-10-27 09:42 | XMS_ITS | Encounter Summary ---
Author Organization [employer] Address [address] [facility] [address] [place] [address] Care Team Providers Care Business Planning Analyst Name Role Phone Farhana Horn Primary Care Provider Encounter Details Date Type Department Care Team (Latest Contact Info) Description 10/22/2024 Travel Social History Tobacco Use Types Packs/Day Years [...] documented as of this encounter Care Teams Business Planning Analyst Relationship Specialty Start Date End Date Farhana Horn DO [address] [place] [phone] PCP - General Family Medicine 09/09/18 documented as of this encounter
--- OUTSIDE RECORDS SUMMARY | 2024-10-27 09:42 | XMS_ITS | Encounter Summary ---
Author Organization [employer] Address [address] [place] [address] 7t [place] [address] Care Team Providers Care Paper Tester Name Role Phone Farhana Horn DO Primary Care Provider + [phone] Reason for Visit * Reason Comments Med Refill Encounter Details Date Type Department Care Team ([facility] st Contact Info) Description 10/23/2024 Refill [facility] MED[facility] [address] [place] [address] Farhana Horn DO [address] [place] [address] Seasonal allergic rhinitis, unspecified trigger Social History Tobacco Use Types Packs/Day Years [...] your housing situation today? I have magalie migule 06/25/[address] you li [...] as of this encounter Visit Diagnoses Diagnosis Seasonal allergic rhinitis, unspecified trigger documented in this encounter Additional Health Concerns Assessment Noted Time PHQ-9 Depression Total Score: 4 12/09/19 24 10:18 AM EDT documented as of this encounter Care Teams Paper Tester Relationship Specialty Start Date End Date Farhana Horn DO [address] [place] [id number] PCP - General Family Medicine 09/09/18 documented as of this encounter
--- OUTSIDE RECORDS SUMMARY | 2024-10-27 09:42 | XMS_ITS | Encounter Summary ---
Author Organization [employer] Address [address] [facility] 7t [place] [address] Care Team Providers Care Assembler Ping Pong Table Name Role Phone Farhana Horn Primary Care Provider Encounter Details Date Type Department Care Team (Latest Contact Info) Description 10/21/2024 Travel Social History Tobacco Use Types Packs/Day [...] documented as of this encounter Care Teams Assembler Ping Pong Table Relationship Specialty Start Date End Date Farhana Horn DO [address] [place] [id number] PCP - General Family Medicine 09/09/18 documented as of this encounter
--- OUTSIDE RECORDS SUMMARY | 2024-10-27 09:42 | XMS_ITS | Encounter Summary ---
Author Organization [employer] Address [address] [facility] 7t [place] [address] Care Team Providers Care Net Developer Software Engineer C Name Role Phone Farhana Horn Primary Care Provider [phone] Reason for Visit * Reason Onset Date Comments Recall Letter 10/15/2024 Recall Letter se nt 10/15/24. Encounter Details Date Type Department Care Team ([facility] st Contact Info) Description 10/15/2024 Telephone [facility] MED[facility]INE [address] [place] [address] Sudha Doss [place] Recall Letter (Recall Letter [...] [place] - 10/15/2024 10:45 AM EST Office Visit-DMSalma L/M to patient vm to call PCP office. Recall sent 10/15/24. documented in this encounter Plan of Treatment Not on file documented as of this encounter Visit Diagnoses Not on filedocumented in this encounter Additional Health Concerns Assessment Noted Time PHQ-9 Depression Total Score: 4 12/09/19 24 10:18 AM EDT documented as of this encounter Care Teams Net Developer Software Engineer C Relationship Specialty Start Date End Date Farhana Horn DO [address] [place] [address] PCP - General Family Medicine 09/09/18 documented as of this encounter
--- OUTSIDE RECORDS SUMMARY | 2024-10-27 09:42 | XMS_ITS | Encounter Summary ---
Author Organization [employer] Address [address] [facility] 7t [place] [address] Care Team Providers Care Phlebotomy Services Representative Name Role Phone KoryFarhana Primary Care Provider + [phone] Encounter Details Date Type Department Care Team (Late st Contact Info) Description 12/20/2023 Orders Only [facility] MED[facility]INE [address] [place] [address] ProviderPantera MD Social History Tobacco Use Types [...] the past 12 months, has t he [employer], gas, oil or water company threatened to [...] on file documented as of this encounter Procedures Procedure [...] documented as of this encounter Care Teams Phlebotomy Services Representative Relationship Specialty Start Date End Date Farhana Horn DO [address] [place] [address] PCP - General Family Medicine 09/09/18 documented as of this encounter
--- OUTSIDE RECORDS SUMMARY | 2024-10-27 09:42 | XMS_ITS | Encounter Summary ---
Author Organization [employer] Address [address] [facility] 7t [place] [address] Care Team Providers Care Head Esthetician Name Role Phone Farhana Horn DO Primary Care Provider + [phone] Encounter Details Date Type Department Care Team ([facility] st Contact Info) Description 08/08/2023 Telephone [facility] MEDICINE [address] [place] [address] Farhana Horn DO [address] [place] [address] Social History Tobacco Use Types Packs/Day Years [...] Miscellaneous Notes * Telephone Encounter - Barber Stone - 08/08/2023 9:58 AM EST Tc from [...] documented as of this encounter Care Teams Head Esthetician Relationship Specialty Start Date End Date Farhana Horn DO [address] [place] [address] PCP - General Family Medicine 09/09/18 documented as of this encounter
--- OUTSIDE RECORDS SUMMARY | 2024-10-27 09:42 | XMS_ITS | Encounter Summary ---
Author Organization [employer] Address [address] [facility] 7t [place] [address] Care Team Providers Care Outside Cutter Name Role Phone Farhana Horn Primary Care Provider + [phone] Reason for Visit * Reason Comments Diabetic Eye Exam Encounter Details Date Type Department Care Team ([facility] st Contact Info) Description 10/22/2024 2:00 PM EST Office Visit [facility] [address] [place] [address] Steven, Danette, OD [address] [place] [address] Diabetes type 2, no ocular involvement (CMS/HCC) (Primary Dx); Vitelliform lesion of macula; Headache, unspecified headache type; Presbyopia Social History Tobacco Use Types Packs/Day Years [...] your housing situation today? I have magalie myriam 06/25/[address] you li [...] as of this encounter Plan of Treatment Pending Results Name Type Priority Associated Diagnoses Date /Time OCT, Retina - OU - Both Eyes Ophthalmology Routine Vitelliform lesion of macula 10/22/2024 4:03 PM EST documented as of this encounter Visit Diagnoses Diagnosis Diabetes type 2, no ocular involvement (CMS/[facility])- Primary Vitelliform lesion of macula Headache, unspecified headache type Presbyopia documented in this encounter Additional Health Concerns Assessment Noted Time PHQ-9 Depression Total Score: 4 12/09/19 24 10:18 AM EDT documented as of this encounter Care Teams Outside Cutter Relationship Specialty Start Date End Date Farhana Horn DO [address] [place] [address] PCP - General Family Medicine 09/09/18 documented as of this encounter
--- OUTSIDE RECORDS SUMMARY | 2024-10-27 09:43 | XMS_ITS | Encounter Summary ---
Author Organization [employer] Address [address] [place] [address] 7 [place] [address] Care Team Providers Care Purchasing Expeditor Name Role Phone Farhana Horn DO Primary Care Provider Encounter Details Date Type Department Care Team (Late st Contact Info) Description 09/12/2022 Orders Only [facility] MEDICINE [address] [place] [address] Farhana Horn DO [address] [place] [address] Social History Tobacco Use Types Packs/Day Years [...] on filedocumented in this encounter Care Teams Purchasing Expeditor Relationship Specialty Start Date End Date Farhana Horn DO [address] [place], [place] [id number] PCP - General Family Medicine 09/09/18 documented as of this encounter
--- OUTSIDE RECORDS SUMMARY | 2024-10-27 09:43 | XMS_ITS | Encounter Summary ---
Author Organization [employer] Address [address] [place] [address] 7 [place] [address] Care Team Providers Care Assembler Convertible Top Name Role Phone Farhana Horn DO Primary Care Provider [phone] Encounter Details Date Type Department Care Team (Latest Contact Info) Description 10/16/2019 Abstract [facility] CONVERSIONS Dental, Provider, DDS Social [...] on filedocumented in this encounter Care Teams Assembler Convertible Top Relationship Specialty Start Date End Date Farhana Horn DO [address] [place] [address] PCP - General Family Medicine 09/09/18 documented as of this encounter
[2024-11-02 14:36] LABS: HPV Genotype 16 Negative (Negative); HPV Genotype 18 Negative (Negative); HPV High Risk Positive (Negative)
== END 2024-10-27 08:47 | disposition home or self-care (01) ==
LOC: HO.LNP 08:46
PROVIDERS: PCP Family Medicine; Visit Provider Obstetrics & Gynecology
DX: Z01.419 Encounter for gynecological examination (general) (routine) without abnormal findings (principal)
CPT/HCPCS: 87626; 88175; 99396; 99459

== ENCOUNTER 2024-10-29 10:55 | Emergency (ER) | payer MEDICAID, SELFPAY ==
--- NOTE | ~2024-10-29 | CT_ITS ---
CLINICAL HISTORY: LLQ pain CT abdomen and pelvis with contrast Comparison: CT of the abdomen and pelvis from 12/26/2023 Findings: No consolidation of the imaged lung bases. No change in 3 mm nonobstructing right sided nephrolithiasis. No hydronephrosis. No significant change in 1.2 cm left adrenal nodule. Right adrenal gland is normal. Redemonstration of the moderate volume loss of the pancreas. Liver and spleen appear unchanged. The gallbladder is surgically absent. Right dorsal pericecal lymph node measures 1.1 cm short axis (previously 1.0 cm). No small bowel obstruction. Fluid in the cecum as can be seen with diarrhea type illnesses and mild colitis. Portions of the sigmoid colon are obscured. Mild colitis and/or diverticulitis considered of the descending-sigmoid junction given wall thickening of the mild adjacent fluid (imaged 53 of series 3). Trace fat containing left inguinal hernia. Phleboliths are redemonstrated in the pelvis. The uterus is anteverted. Mild wall thickening of the urinary bladder is nonspecific. No adnexal soft tissue mass. Degenerative changes of the hips, SI joints, and spine. Vacuum disc phenomenon at transitional lumbosacral junction with [id number] bilateral facet arthropathy and mild spinal stenosis by CT. IMPRESSION: 1. Mild colitis including descending colon and sigmoid colon junction. 2. No small bowel obstruction. 3. No significant change in solid organs when compared to 12/26/2023. This document has been electronically signed by: Girish Zamora MD on 10/29/2024 23:53:20
[2024-10-29 11:29] VITALS: BP 120/80; PULSE 74; RESP 16; TEMP 36.4; O2SAT 97; BMI 29.5
--- NOTE | 2024-10-29 11:29 | ED.GENADULT ---
HPI - General Adult General Chief complaint: Abdominal Pain Stated complaint: diarrhea abd pain Time Seen by Provider: 10/29/24 21:50 Source: patient, RN notes reviewed, old records reviewed and translator and interpreter Mode of arrival: ambulatory Limitations: language barrier History of Present Illness ED Provider: Leslie HPI narrative: 54-year-old female presents for evaluation abdominal pain with diarrhea. She reports she was had abdominal pain for the last 2 days. Denies any fevers or chills. She reports that she had a colonoscopy about 1 month ago and was told that she has diverticulosis but no other concerning findings She denies any diff history abdominal surgeries She reports her pain is an 8/10, stabbing in mostly left-sided abdominal pain Related Data Home Medications ?Medication ?Instructions ?Recorded ?Confirmed amitriptyline 150 mg tablet 150 mg PO BEDTIME 09/21/20 02/26/23 gabapentin 400 mg capsule 400 mg PO TID 09/21/20 02/26/23 propranolol 120 mg capsule,24 120 mg PO DAILY 03/01/21 02/26/23 hr,extended release ergocalciferol (vitamin D2) 1,250 1,250 mcg PO QWEEK 10/02/21 02/26/23 mcg (50,000 unit) capsule (Vitamin D2) loratadine 10 mg tablet 10 mg PO DAILY 11/21/21 02/26/23 atorvastatin 20 mg tablet 20 mg PO DAILY 04/01/24 cholecalciferol (vitamin D3) 50 50 mcg PO DAILY 04/01/24 mcg (2,000 unit) capsule (Vitamin D3) pyridoxine (vitamin B6) 100 mg 100 mg PO DAILY 04/01/24 tablet magnesium oxide 400 mg (241.3 mg 400 mg PO DAILY 07/08/24 magnesium) tablet dulaglutide 0.75 mg/0.5 mL mg subcut QWEEK 10/21/24 subcutaneous pen injector (Trulicity) gabapentin 300 mg capsule mg PO 10/21/24 Previous Rx's ?Medication ?Instructions ?Recorded cetirizine 10 mg tablet 10 mg PO DAILY #30 tabs 10/10/21 ondansetron HCl 4 mg tablet 4 mg PO Q8H PRN for 04/26/23 nausea/vomiting #20 tabs Saccharomyces boulardii 250 mg 250 mg PO QAM #90 caps 04/01/24 capsule (Probiotic (S.boulardii)) bisacodyl 5 mg tablet,delayed 10 mg (2 x 5 mg) PO BEDTIME #180 04/01/24 release (Dulcolax (bisacodyl)) tabs calcium polycarbophil 625 mg 625 mg PO BID #180 tabs 04/01/24 tablet (Fiber-Lax) esomeprazole magnesium 40 mg 40 mg PO DAILY #90 caps 10/21/24 capsule,delayed release (Nexium) sucralfate 1 gram tablet 1 g PO BEDTIME #90 tabs 10/21/24 levofloxacin 750 mg tablet 750 mg PO DAILY #7 tabs 10/30/24 metronidazole 500 mg tablet 500 mg PO Q8H #21 tabs 10/30/24 Allergies Allergy/AdvReac Type Severity Reaction Status Date / Time Penicillins [PENICILLINS] Allergy Severe RASH Verified 10/29/24 11:34 Review of Systems Constitutional: Constitutional: Denies body ache(s), Denies chills, Denies fatigue, Denies fever(s) and Denies headache(s) Eyes: Eyes: Denies blurry vision ENT: Denies dysphagia, Denies vertigo and Denies headache(s) Cardiovascular: Cardiovascular: Denies chest pain and Denies dyspnea Respiratory: Respiratory: Denies cough and Denies dyspnea Gastrointestinal: Gastrointestinal: Reports abdominal pain, Denies hematochezia, Denies change in bowel habits, Denies dysphagia, Reports nausea and Denies vomiting Genitourinary: Genitourinary: Denies dysuria Musculoskeletal: Musculoskeletal: Denies back pain Integumentary/Breasts: Skin/Breast: Denies rash Neurologic: Denies vertigo and Denies headache(s) Psychiatric: Psychiatric: Denies anxiety Endocrine: Endocrine: Denies fatigue [facility] Past Medical History Medical History Diverticulosis Renal calculi Gastric varices Migraine headache Depression GERD (gastroesophageal reflux disease) Diabetes mellitus Adrenal nodule IBS (irritable bowel syndrome) HTN (hypertension) Hyperlipemia Surgical History History of surgery History of esophagogastroduodenoscopy (EGD) Hx of colonoscopy Hx of tubal ligation Hx of discectomy Family History Family History Father Hx of type 1 diabetes mellitus History of epilepsy Mother Family history of high blood pressure Hx of cancer of uterus Social History Social History Household Members Other:: daughter Housing: House Alcohol intake: never Patient Tobacco Use Status: Never used Tobacco Current occupational status: employed Current occupation: [employer]- right handed Sexual orientation: Straight/Heterosexual Gender identity: Female Physical Exam ED Vital Signs: Vital Signs - 24 hr 10/29/24 11:29 10/29/24 21:28 10/29/24 23:42 Temperature 97.5 F 98.6 F Pulse Rate 74 82 Respiratory Rate 16 16 16 Blood Pressure 120/80 129/76 Pulse Oximetry 97 98 Oxygen Delivery Method Room Air Room Air 10/30/24 00:54 10/30/24 01:37 Temperature 98.6 F 98.6 F Pulse Rate 82 82 Respiratory Rate 16 16 Blood Pressure 129/76 129/76 Pulse Oximetry Oxygen Delivery Method BMI result Body Mass Index 29.5 Const General: healthy appearing, comfortable, no acute distress, alert and awake Nutritional Appearance: well nourished Orientation/consciousness: patient oriented x3 HENMT Head: Yes normocephalic and Yes atraumatic Eyes Eyelids: Yes eyelids normal Conjunctivae: conjunctivae normal Sclerae: sclerae normal Corneas: corneas normal Pupils: Equal, round and reactive pupils present EOM: EOMs intact bilaterally Neck Neck: Yes full ROM Resp Effort & Inspection: normal respiratory effort, able to speak in complete sentences and not labored GI Inspection: No distended Palpation (GI): Soft to palpation, not firm, Tenderness to palpation present (GI) in the LLQ and in the LUQ, no guarding and not rigid Auscultation: normoactive bowel sounds Skin General skin exam: elasticity normal Neuro General: patient oriented x3 Cranial nerves: Yes Equal, round and reactive pupils present and Yes Bilaterally intact EOM present Cognition (Neuro): normal cognition Extrem Other: Moving all extremities well without any obvious deformities Course Course Course Narrative: This is a rapid medical exam performed by Sam Leal NP: Additional HPI, ROS, PE not included below will be deferred to primary provider. Patient is a 54-year-old female with history of IBS, GERD presenting with complaint of upper abdominal pain, nausea, vomiting and diarrhea x 2 days. Headache, left arm cramping. Noted black stool today, describes as black grains, and states stool has been watery. Sent to ED by clinic. Plan: labs, UA, viral panel Medications Administered Discontinued Medications Generic Name Dose Route Start Last Admin Trade Name Radha PRN Reason Stop Dose Admin Sodium Chloride 1,000 mls @ 999 mls/hr 10/29/24 22:15 10/30/24 01:38 Ns IV 10/29/24 23:15 Infused .Q1H1M MIRYAM Infusion Levofloxacin 750 mg 10/30/24 00:43 10/30/24 00:55 Levofloxacin 750 Mg Tablet PO 10/30/24 00:44 750 mg ONCE ONE Administration Metronidazole 500 mg 10/30/24 00:43 10/30/24 00:55 Metronidazole 500 Mg Tablet PO 10/30/24 00:44 500 mg ONCE ONE Administration Morphine Sulfate 4 mg 10/29/24 22:01 10/29/24 23:42 Morphine Sulfate 4 Mg/Ml Cartridge IVPUSH 10/29/24 22:02 4 mg ONCE ONE Administration Protocol Ondansetron HCl 4 mg 10/29/24 22:01 10/29/24 23:42 Ondansetron Hcl 4 Mg/2 Ml Vial IVPUSH 10/29/24 22:02 4 mg ONCE ONE Administration Medical Decision Making Medical Decision Making MDM Narrative: 54-year-old female presents for evaluation of left-sided abdominal pain with diarrhea. She denies any history abdominal surgeries. She she was tendon in the left abdomen. She would have a history of diverticulosis. He had a CT scan of the abdomen pelvis to evaluate for acute diverticulitis and rule out perforation/abscess. She has no significant leukocytosis but does have a slight left shift. The significant for a carbon dioxide of 21 which may be low due to hyperventilation as the patient is uncomfortable. No significant electrolyte abnormalities. Patient's BUN is just above normal at 19 with a normal creatinine 0.79. The elevated BUN may be related to dehydration from her diarrhea. She has a slight elevation of ALT, alk phos. These are previously documented in 2022. She has no right upper quadrant pain. CT scan shows left-sided colitis, we will treat with ofloxacin and Flagyl given penicillin allergy Differential Diagnosis Differential Diagnoses: The differential diagnosis associated with the presentation includes Colitis Diverticulitis Diverticular perforation Diverticular abscess Admission/Observation Consideration of admission/observation: Escalation of care including admission/observation considered Lab Data MDM Lab Attestation statement: I reviewed the patient's lab results. As above 10/29/24 12:06 10/29/24 12:06 Labs: Lab Results 10/29/24 10/29/24 Range/Units 12:06 23:01 WBC 7.4 (4.8-10.8) X10*3/uL RBC 4.83 (4.20-5.50) X10*6/uL Hgb 13.3 (12.0-16.0) g/dl Hct 40.4 (37.0-47.0) % MCV 83.6 (80.0-98.0) fL MCH 27.5 (27.0-33.0) pg MCHC 32.9 (31.0-35.0) g/dl RDW 13.4 (11.0-16.0) % Plt Count 302 (160-400) X10*3/uL MPV 8.0 L (9.4-12.3) fL Immature Gran % (Auto) 0.1 (0.0-0.4) % Neut % (Auto) 45.2 (45-73) % Lymph % (Auto) 40.7 H (20-40) % Bacon % (Auto) 11.2 H (2-11) % Eos % (Auto) 2.4 (0-4) % Baso % (Auto) 0.4 (0-2) % Lymph # (Auto) 3.0 (1.2-4.9) X10*3/uL Bacon # (Auto) 0.8 (0.1-1.2) X10*3/uL Eos # (Auto) 0.2 (0.0-0.4) X10*3/uL Baso # (Auto) 0.0 (0.0-0.2) X10*3/uL Abs Immat Gran (auto) 0.01 (0.00-0.03) X10*3/uL Absolute Neuts (auto) 3.3 (2.0-8.3) x10*3/uL Absolute Nucleated RBC 0.000 (0.0-0.012) X10*3/uL Nucleated RBC % (auto) 0.0 (0.0-0.2) /100WBC PT 12.6 H (10.9-12.4) SEC INR 1.1 (0.9-1.1) Sodium 140 (135-145) mmol/L Potassium 3.7 (3.3-5.1) mmol/L Chloride 112 H (96-108) mmol/L Carbon Dioxide 21 L (22-29) mmol/L Anion Gap 11 L (12-20) BUN 19 H (9-16) mg/dL Creatinine 0.79 (0.5-1.4) mg/dL Estim Creat Clear Calc 68.7 Estimated GFR > 60 Random Glucose 123 H (60-115) mg/dL Calcium 9.3 (8.4-10.2) mg/dL Magnesium 1.9 (1.6-2.6) mg/dL Total Bilirubin 0.4 (0.0-1.0) mg/dL AST 28 (5-31) U/L ALT 41 H (0-31) U/L Alkaline Phosphatase 140 H (39-117) U/L Total Protein 8.2 H (6.5-8.0) g/dL Albumin 4.2 (3.5-5.0) g/dL Urine Color Dark Yellow Urine Appearance Cloudy Urine pH 5.5 (5.0-9.0) Ur Specific [place] >= 1.030 H (1.005-1.025) Urine Protein 30 (1+) H (Neg-Trace) mg/dL Urine Glucose (UA) Negative (Negative) mg/dL Urine Ketones 15 (Negative) mg/dL Urine Blood Negative (Negative) Urine Nitrite Negative (Negative) Ur Leukocyte Esterase Trace H (Negative) Urine RBC 0-2 (0-2) /HPF Urine WBC 0-5 (0-5) /HPF Ur Squamous Epith Cells 3-5 (0-2) /HPF Urine Bacteria 1+ (None Seen) Hyaline Casts 3-5 (0-2) /LPF Influenza Type A (PCR) NEGATIVE (Negative) Influenza Type B (PCR) NEGATIVE (Negative) RSV RNA Qual (PCR) NEGATIVE (Negative) SARS-CoV-2 RNA (RT-PCR) NEGATIVE (Negative) Radiology Impression Discussion of test interpretation with radiology: I have reviewed the radiologist's reading. Radiologist Impression: IMPRESSION: 1. Mild colitis including descending colon and sigmoid colon junction. 2. No small bowel obstruction. 3. No significant change in solid organs when compared to 12/26/2023. This document has been electronically signed by: Girish Zamora MD on 10/29/2024 23:53:20 Discharge Plan Discharge Clinical Impression: Colitis Patient Disposition: Home, Self-Care Instructions: Colitis (ED) Additional Instructions: Your CT scan showed colitis which is inflammation of your large intestine. This generally causes abdominal pain with nausea and diarrhea. The diarrhea can sometimes be bloody Take both antibiotics as prescribed for the next week It was important that you do not drink alcohol while taking metronidazole [place] active while taking Levaquin as you can get tendinitis or tendon injuries Doctor, return for new or worsening symptoms Prescriptions: New levofloxacin 750 mg tablet 750 mg PO DAILY Qty: 7 0RF metronidazole 500 mg tablet 500 mg PO Q8H Qty: 21 0RF No Action gabapentin 400 mg capsule 400 mg PO TID amitriptyline 150 mg tablet 150 mg PO BEDTIME propranolol 120 mg capsule,extended release 24 hr 120 mg PO DAILY cetirizine 10 mg tablet 10 mg PO DAILY Qty: 30 2RF ergocalciferol (vitamin D2) [Vitamin D2] 1,250 mcg (50,000 unit) capsule 1,250 mcg PO QWEEK loratadine 10 mg tablet 10 mg PO DAILY magnesium oxide 400 mg (241.3 mg magnesium) tablet 400 mg PO DAILY ondansetron HCl 4 mg tablet 4 mg PO Q8H PRN (Reason: for nausea/vomiting) Qty: 20 1RF cholecalciferol (vitamin D3) [Vitamin D3] 50 mcg (2,000 unit) capsule 50 mcg PO DAILY pyridoxine (vitamin B6) 100 mg tablet 100 mg PO DAILY atorvastatin 20 mg tablet 20 mg PO DAILY calcium polycarbophil [Fiber-Lax] 625 mg tablet 625 mg PO BID Qty: 180 2RF Saccharomyces boulardii [Probiotic (S.boulardii)] 250 mg capsule 250 mg PO QAM Qty: 90 2RF bisacodyl [Dulcolax (bisacodyl)] 5 mg tablet,delayed release (DR/EC) 10 mg PO BEDTIME Qty: 180 4RF Trulicity 0.75 mg/0.5 mL pen injector subcut QWEEK gabapentin 300 mg capsule PO esomeprazole magnesium [Nexium] 40 mg capsule,delayed release(DR/EC) 40 mg PO DAILY Qty: 90 3RF sucralfate 1 gram tablet 1 g PO BEDTIME Qty: 90 3RF Interventions: ED Discharge Assessment Last Done: 10/30/24 01:37 Discharge Date/Time: 10/30/24 01:40 Print Language: Paraguayan
--- NOTE | 2024-10-29 11:33 | ECG_ITS ---
Test Reason : LEFT ARM PAIN Blood Pressure : */* mmHG Vent. Rate : 72 BPM Atrial Rate : 72 BPM P-R Int : 158 ms QRS Dur : 88 ms QT Int : 400 ms P-R-T Axes : 51 -3 2 degrees QTcB Int : 438 ms Normal sinus rhythm Nonspecific T wave abnormality Abnormal ECG When compared with ECG of 09-Mar-2022 08:40, No significant change was found Referred By: Maureen Leal Electronically Signed By: RY ARANDA
[2024-10-29 12:10] LABS: MANUAL DIFF FLAG NO
[2024-10-29 12:11] LABS: Basophils Percent Auto 0.4 % (0-2); Eosinophils Absolute Auto 0.2 X10*3/uL (0.0-0.4); Eosinophils Percent Auto 2.4 % (0-4); Hematocrit 40.4 % (37.0-47.0); Hemoglobin 13.3 g/dl (12.0-16.0); Imm Gran Abs Auto 0.01 X10*3/uL (0.00-0.03); Imm Gran Pct Auto 0.1 % (0.0-0.4); Lymphocytes Percent Auto 40.7 % (20-40); Mean Corpuscular HGB Conc 32.9 g/dl (31.0-35.0); Mean Corpuscular Hemoglobin 27.5 pg (27.0-33.0); Mean Corpuscular Volume 83.6 fL (80.0-98.0); Monocytes Absolute Auto 0.8 X10*3/uL (0.1-1.2); Monocytes Percent Auto 11.2 % (2-11); Neutrophils Absolute Auto 3.3 x10*3/uL (2.0-8.3); Neutrophils Percent Auto 45.2 % (45-73); Platelet Count 302 X10*3/uL (160-400); Red Blood Count 4.83 X10*6/uL (4.20-5.50); Red Cell Distribution Width 13.4 % (11.0-16.0); White Blood Count 7.4 X10*3/uL (4.8-10.8)
[2024-10-29 12:17] LABS: INTERNATIONAL NORM RATIO 1.1 (0.9-1.1); Prothrombin Time 12.6 SEC (10.9-12.4)
[2024-10-29 12:28] LABS: Alanine Aminotransferase 41 U/L (0-31); Albumin Level 4.2 g/dL (3.5-5.0); Alkaline Phosphatase 140 U/L (39-117); Anion Gap 11 (12-20); Bilirubin Total 0.4 mg/dL (0.0-1.0); Blood Urea Nitrogen 19 mg/dL (9-16); Calcium 9.3 mg/dL (8.4-10.2); Carbon Dioxide 21 mmol/L (22-29); Chloride 112 mmol/L (96-108); Creatinine Clr Calc Pharmacy 68.7; Estimated Glomerular Filt Rate > 60; Glucose Random 123 mg/dL (60-115); Magnesium 1.9 mg/dL (1.6-2.6); Potassium 3.7 mmol/L (3.3-5.1); Sodium 140 mmol/L (135-145); Total Protein 8.2 g/dL (6.5-8.0)
[2024-10-29 12:40] LABS: Aspartate Amino Transferase 28 U/L (5-31)
[2024-10-29 12:52] LABS: Influenza A PCR NEGATIVE (Negative); Influenza B PCR NEGATIVE (Negative); Resp Syncy Virus RNA Qual PCR NEGATIVE (Negative); SARS COV2 PCR INHOUSE NEGATIVE (Negative)
[2024-10-29 21:28] VITALS: BP 129/76; PULSE 82; RESP 16; TEMP 37; O2SAT 98
--- NOTE | 2024-10-29 22:45 | PC.NURSE ---
pt states she has pain on urination. low back pain pt states she has a little stone.
--- NOTE | 2024-10-29 22:53 | PC.NURSE ---
pt ambulated to bathroom with steady gait. to obtain a ua
[2024-10-29 23:09] LABS: Appearance Urine Cloudy; Color Urine Dark Yellow; Glucose Urine UA Negative (Negative); Leukocyte Esterase Urine Trace (Negative); Nitrite Urine Negative (Negative); PH 5.5 (5.0-9.0); Specific Gravity - Urine >= 1.030 (1.005-1.025); UMIC TRIGGER UACC YES; Urine Blood Negative (Negative); Urine Ketones 15 mg/dL (Negative); Urine Protein 30 (1+) mg/dL (Neg-Trace)
[2024-10-29 23:23] LABS: Bacteria Urine 1+ (None Seen); RBC Urine 0-2 /HPF (0-2); WBC Urine 0-5 /HPF (0-5)
[2024-10-29] MEDS: 0.9 % Sodium Chloride 1,000 ML 999 ML IV (23:38)
[2024-10-29 23:42] VITALS: RESP 16
[2024-10-29] MEDS: Morphine Sulfate 4 MG/ML CARTRIDGE IVPUSH (23:42)
[2024-10-29] MEDS: ondansetron HCL 4 MG/2 ML VIAL IVPUSH (23:42)
[2024-10-30 00:54] VITALS: BP 129/76; PULSE 82; RESP 16; TEMP 37
[2024-10-30] MEDS: levoFLOXacin 750 MG TABLET PO (00:55)
[2024-10-30] MEDS: metroNIDAZOLE 500 MG TABLET PO (00:55)
[2024-10-30 01:37] VITALS: BP 129/76; PULSE 82; RESP 16; TEMP 37
== END 2024-10-30 01:40 | disposition home or self-care (01) ==
PROVIDERS: Registered Nurse Emergency; Emergency Provider Internal Medicine; PCP Family Medicine
DX: K52.9 Noninfective gastroenteritis and colitis, unspecified (principal); R11.0 Nausea; M79.602 Pain in left arm; R94.31 Abnormal electrocardiogram [ECG] [EKG]; R20.0 Anesthesia of skin; Z79.899 Other long term (current) drug therapy; Z03.818 Encounter for observation for suspected exposure to other biological agents ruled out
CPT/HCPCS: 0241U; 74177; 80053; 81001; 83735; 85025; 85610; 93005; 96361; 96374; 96375; 99284; 99285; J2270; J2405

== ENCOUNTER → 2024-10-29 11:33 | Outpatient (BNV) | payer MEDICAID, SELFPAY | PROVIDERS: PCP Family Medicine; Visit Provider Internal Medicine | DX: R94.31 Abnormal electrocardiogram [ECG] [EKG] (principal); M79.602 Pain in left arm | CPT/HCPCS: 93010 ==

== ENCOUNTER → 2024-10-29 22:01 | Outpatient (BNV) | payer MEDICAID, SELFPAY | PROVIDERS: PCP Family Medicine; Visit Provider Radiology Neuroradiology | DX: R10.32 Left lower quadrant pain (principal) | CPT/HCPCS: 74177 ==

== ENCOUNTER 2024-11-02 14:34 | Outpatient (AMB) | payer MEDICAID, SELFPAY ==
--- NOTE | 2024-11-02 14:50 | A.OFFVIS_ITS ---
Vital Signs 11/02/24 14:52 Height 5 ft Weight 158 lb 11.725 oz BMI 31.0 BP 106/58 L Blood Pressure Location Rt brachial Position Sitting Pulse 74 Pulse Source Pulse Oximeter Pulse Oximetry (%) 92 Oxygen Delivery Method Room Air Intake Visit Reasons: follow up ER Intake Note: ESTABLISHED PATIENT for dysphagia, GERD, constipation mgmt. Recently seen at ED for dx; colitis. Chief Complaint; C/O abd pain generalized, nausea w/o vomiting, lack of appetite, has not had a BM since being seen in the ED. Pt is still taking abx w/o difficulty. Denies any additional concerns Multifocal Button Grinder Required: Yes Multifocal Button Grinder Services: Multifocal Button Grinder Present Multifocal Button Grinder Name: Sander [id number] Information Interpreted: clinical only Accompanied by: Self / Same As Patient Allergies Penicillins [PENICILLINS] Allergy (Severe, Verified 11/20/24 08:58) RASH dulaglutide [From Trulicity] Adverse Reaction (Mild, Verified 11/20/24 08:58) Abdominal Pain HPI HPI follow up ER: Details: LAST VISIT: GERD (gastroesophageal reflux disease) IBS (irritable bowel syndrome) Diverticulosis Chronic idiopathic constipation Dysphagia Plan Patient reports to be feeling significantly better after upper endoscopy and dilation. Acid reflux less frequent. Patient admits that she is trying to avoid dietary triggers. Patient reports that she was unable to refill her sucralfate and she has not been taking that for couple months. Patient will continue current therapy with Nexium and we will send script for sucralfate. Patient was encouraged to stop eating late at night. Staying upright for minimum 3 hours after meals discussed with patient. Continue current bowel regimen. Increase fluid intake and activity to promote better bowel motility. Patient will continue low FODMAP diet. I will see her in 6 months. She will call our office if she will have any GI concerning symptoms. She is agreeable to this plan and verbalizes understanding of instructions. She was given the opportunity to ask questions and all questions answered. ? Thank you for allowing me to participate in her care Medications New sucralfate 1 g PO BEDTIME 90 tabs 3RF K21.9, K29.81 Refilled esomeprazole magnesium (Nexium) 40 mg PO DAILY 90 caps 3RF K21.9 20 ED VISIT 10/29/2024 [facility] Narrative: 54-year-old female presents for evaluation of left-sided abdominal pain with diarrhea. She denies any history abdominal surgeries. She she was tendon in th e left abdomen. She would have a history of diverticulosis. He had a CT scan of the abdomen pelvis to evaluate for acute diverticulitis and rule out perforation/abscess. She has no significant leukocytosis but does have a slight left shift. The significant for a carbon dioxide of 21 which may be low due to hyperventilation as the patient is uncomfortable. No significant electrolyte abnormalities. Patient's BUN is just above normal at 19 with a normal creatinine 0.79. The elevated BUN may be related to dehydration from her diarrhea. She has a slight elevation of ALT, alk phos. These are previously documented in 2022. She has no right upper quadrant pain. CT scan shows left- sided colitis, we will treat with ofloxacin and Flagyl given penicillin allergy Differential Diagnosis Differential Diagnoses: The differential diagnosis associated with the presentation includes Colitis Diverticulitis Diverticular perforation Diverticular abscess * TODAY'S VISIT Patient is here today for follow-up ED visit. Currently she continues to be on antibiotics. Patient was diagnosed with colitis OF the descending and sigmoid colon and was placed on antibiotics. Patient currently is taking the antibiotics and is tolerating it well. Patient does report epigastric pain and no appetite due to the pain. Patient reports acid reflux is for the most part controlled. Patient no longer has diarrhea. Reports occasional left lower quadrant pain. Patient reports occasional dyspepsia without dysphagia or odynophagia. Today patient reports that she is somewhat constipated. Denies melena, hematochezia, unintentional weight loss or ribbon like stools. Patient reports that no BM since she left the ER for the last 3 4 days. Feeling nauseous, no vomiting. [facility] Medical History Type 2 diabetes mellitus Diverticulosis Renal calculi Gastric varices Migraine headache Depression GERD (gastroesophageal reflux disease) Diabetes mellitus Adrenal nodule IBS (irritable bowel syndrome) HTN (hypertension) Hyperlipemia Surgical History History of surgery History of esophagogastroduodenoscopy (EGD) Hx of colonoscopy Hx of tubal ligation Hx of discectomy Family History Father Hx of type 1 diabetes mellitus History of epilepsy Mother Family history of high blood pressure Hx of cancer of uterus Social History Household Members Other:: daughter Housing: House Alcohol intake: never Patient Tobacco Use Status: Never used Tobacco Current occupational status: employed Current occupation: [employer]- right handed Sexual orientation: Straight/Heterosexual Gender identity: Female Female Reproductive History Menstrual Age of Menarche: 10 Review of Systems Const Denies weight gain and Denies weight loss ENT Reports no additional complaints, Denies dysphagia and Denies odynophagia Card Reports no additional complaints Resp Reports no additional complaints GI Reports abdominal pain (Epigastric), Denies belching, Denies melena, Reports bloating, Denies change in bowel habits, Reports constipation, Denies dysphagia, Denies excessive flatus, Denies dyspepsia, Reports heartburn, Denies diarrhea, Denies loose stools, Reports nausea, Denies odynophagia and Denies vomiting Reports no additional complaints Musc Reports no additional complaints Neuro Reports no additional complaints Psych Reports no additional complaints Endo Reports no additional complaints Physical Exam Vital Signs: Last Vital Signs Pulse 74 11/02/24 14:52 BP 106/58 L 11/02/24 14:52 Pulse Ox 92 11/02/24 14:52 Oxygen Delivery Method Room Air 11/02/24 14:52 BMI result Body Mass Index 31.0 Const General: healthy appearing and no acute distress Nutritional Appearance: obese Orientation/consciousness: patient oriented x3 Resp Effort & Inspection: normal respiratory effort, able to speak in complete sentences, no tracheal deviation and symmetric chest movement Auscultation: clear to auscultation bilaterally Cardio Rate: regular rate GI Inspection: Yes normal to inspection, No distended and Yes obesity Palpation (GI): Soft to palpation, not firm, nontender and No hepatosplenomegaly present Auscultation: normal bowel sounds General: Yes no CVA tenderness Back/Spine/Pelvis Back: no CVA tenderness Skin General skin exam: elasticity normal, turgor normal and dry skin Neuro General: patient oriented x3 Psych Appearance: grossly normal Mental Status: mental status grossly normal Results Reviewed Results Reviewed: CT SCAN OF ABDOMEN AND PELVIS 10/29/2024 IMPRESSION: 1. Mild colitis including descending colon and sigmoid colon junction. 2. No small bowel obstruction. 3. No significant change in solid organs when compared to 12/26/2023. Assessment & Plan Assessment & Plan (1) GERD (gastroesophageal reflux disease): Code(s): K21.9 - Gastro-esophageal reflux disease without esophagitis Category: Medical Qualifiers: Esophagitis presence: without esophagitis Qualified Code(s): K21.9 - Gastro-esophageal reflux disease without esophagitis (2) IBS (irritable bowel syndrome): Code(s): K58.9 - Irritable bowel syndrome, unspecified Category: Medical Qualifiers: Irritable bowel syndrome type: with constipation Qualified Code(s): K58.1 - Irritable bowel syndrome with constipation (3) Diverticulosis: Code(s): K57.90 - Diverticulosis of intestine, part unspecified, without perforation or abscess without bleeding Category: Medical (4) Chronic idiopathic constipation: Code(s): K59.04 - Chronic idiopathic constipation (5) Dysphagia: Code(s): R13.10 - Dysphagia, unspecified Qualifiers: Dysphagia type: oropharyngeal phase Qualified Code(s): R13.12 - Dysphagia, oropharyngeal phase (6) Dyspepsia: Code(s): R10.13 - Epigastric pain (7) Postprandial epigastric pain: Code(s): R10.13 - Epigastric pain Plan Patient will start taking fiber supplement 1-2 tablets daily and will take Dulcolax. Patient will bring her medications next visit. Referral to endocrinology sent. Continue taking Nexium daily. Avoid dietary triggers only dissected. Staying upright for minimal 3 hours after meals discussed with patient. Patient has follow-up appointment already. She will call our office if she will have any worsening symptoms. She is agreeable to this plan and verbalizes understanding of instructions. She was given the opportunity to ask questions and all questions answered. Thank you for allowing me to participate in her care Orders: Referrals Endocrinology Referral E11.9 - Type 2 diabetes mellitus without complications Medications: New methylcellulose (laxative) (Citrucel) take it with full glass of water 500 mg PO DAILY 90 tabs 2RF K59.00 - Constipation, unspecified Refilled bisacodyl (Dulcolax (bisacodyl)) 10 mg (2 x 5 mg) PO BEDTIME 180 tabs 4RF Coding Level of Care Code Est Pt Level 4 (08156) Complex EM visit Add On G2211 Diagnoses Gastroesophageal reflux disease without esophagitis K21.9 Esophagitis presence: without esophagitis Irritable bowel syndrome with constipation K58.1 Irritable bowel syndrome type: with constipation Diverticulosis K57.90 Chronic idiopathic constipation K59.04 Oropharyngeal dysphagia R13.12 Dysphagia type: oropharyngeal phase Dyspepsia R10.13 Postprandial epigastric pain R10.13 Time Spent (min) 40 Comment 25 minutes spent with patient and additional 15 minutes spent reviewing her records
[2024-11-02 14:52] VITALS: BP 106/58; PULSE 74; O2SAT 92; BMI 31.0
--- OUTSIDE RECORDS SUMMARY | 2024-11-02 16:47 | XMS_ITS | Encounter Summary ---
Author Organization [employer] Address [address] [facility] 7t [place] [address] Care Team Providers Care Order Entry Specialist Name Role Phone Farhana Horn Primary Care [...] Care Team (Late st Contact Info) Description 11/04/2024 10:00 AM EST Office Visit [facility] MEDICINE [address] [place] [address] Farhana Horn DO [address] [place] [address] documented as of this encounter Visit Diagnoses Not on filedocumented in this encounter Additional Health Concerns Assessment Noted Time PHQ-9 Depression Total Score: 4 12/09/19 24 10:18 AM EDT documented as of this encounter Care Teams Order Entry Specialist Relationship Specialty Start Date End Date Farhana Horn DO [address] [place] [address] PCP - General Family Medicine 09/09/18 documented as of this encounter
--- OUTSIDE RECORDS SUMMARY | 2024-11-02 16:47 | XMS_ITS | Encounter Summary ---
Author Organization [employer] Address [address] [facility] [address] [place] [address] Care Team Providers Care Real Estate Agency Principal Name Role Phone Farhana Horn Primary Care Provider + [phone] Reason for Visit * Reason Comments Diabetic Eye Exam Encounter Details Date Type Department Care Team ([facility] st Contact Info) Description 10/22/2024 2:00 PM EST Office Visit [facility] OPTOMETRY [address] [place] [address] Steven, Danette, OD [address] [place] [address] Diabetes type 2, no ocular involvement (CMS/HCC) [...] Description 11/04/2024 10:00 AM EST Office Visit [facility] MEDICINE [address] [place] [address] Farhana Horn DO [address] [place] [address] Pending Results Name Type Priority Associated Diagnoses Date /Time OCT, Retina - OU - Both Eyes Ophthalmology Routine Vitelliform lesion of macula 10/22/2024 4:03 PM EST documented as of this encounter Visit Diagnoses Diagnosis Diabetes type 2, no ocular involvement ([facility])- Primary Vitelliform lesion of macula Headache, unspecified headache type Presbyopia documented in this encounter Additional Health Concerns Assessment Noted Time PHQ-9 Depression Total Score: 4 12/09/19 24 10:18 AM EDT documented as of this encounter Care Teams Real Estate Agency Principal Relationship Specialty Start Date End Date Farhana Horn DO [address] [place] [address] PCP - General Family Medicine 09/09/18 documented as of this encounter
--- OUTSIDE RECORDS SUMMARY | 2024-11-02 16:47 | XMS_ITS | Encounter Summary ---
Author Organization [employer] Address [address] [facility] [address] [place] [address] Care Team Providers Care Polisher And Buffer Name Role Phone Farhana Horn DO Primary Care Provider + [phone] Encounter Details Date Type Department Care Team ([facility] st Contact Info) Description 08/08/2023 Telephone [facility] MEDICINE [address] [place] [address] Farhana Horn DO [address] [place] [address] Social History Tobacco Use Types Packs/Day Years [...] Description 11/04/2024 10:00 AM EST Office Visit [facility] MEDICINE [address] [place] [address] Farhana Horn DO [address] [place] [address] documented as of this encounter Visit Diagnoses Not on filedocumented in this encounter Additional Health Concerns Assessment Noted Time PHQ-9 Depression Total Score: 24 023 11:05 AM EDT documented as of this encounter Care Teams Polisher And Buffer Relationship Specialty Start Date End Date Farhana Horn DO [address] [place] [address] PCP - General Family Medicine 09/09/18 documented as of this encounter
--- OUTSIDE RECORDS SUMMARY | 2024-11-02 16:47 | XMS_ITS | Encounter Summary ---
Author Organization [employer] Address [address] [facility] 7[address] [place] [address] Care Team Providers Care Cook Helper Meat Name Role Phone KoryFarhana Primary Care Provider + [phone] Encounter Details Date Type Department Care Team (Late st Contact Info) Description 12/20/2023 Orders Only [facility] MEDICINE [address] [place] [address] ProviderPantera MD Social History Tobacco Use Types [...] the past 12 months, has t he [employer], gas, oil or water company threatened to [...] Description 11/04/2024 10:00 AM EST Office Visit [facility] MEDICINE [address] [place] [address] Farhana Horn DO [address] [place] [address] documented as of this encounter Procedures Procedure [...] documented as of this encounter Care Teams Cook Helper Meat Relationship Specialty Start Date End Date Farhana Horn DO [address] [place] [address] PCP - General Family Medicine 09/09/18 documented as of this encounter
--- OUTSIDE RECORDS SUMMARY | 2024-11-02 16:47 | XMS_ITS | Encounter Summary ---
Author Organization [employer] Address [address] [place] [address] [address] [place] [address] Care Team Providers Care Undercar Specialist Name Role Phone Farhana Horn DO Primary Care Provider + [phone] Reason for Visit * Reason Comments Med Refill Encounter Details Date Type Department Care Team ([facility] st Contact Info) Description 10/23/2024 Refill [facility] MEDICINE [address] [place] [address] Farhana Horn DO [address] [place] [address] Seasonal allergic rhinitis, unspecified trigger Social History [...] Description 11/04/2024 10:00 AM EST Office Visit [facility] MEDICINE [address] [place] [address] Frahana Horn DO [address] [place] [address] documented as of this encounter Visit Diagnoses Diagnosis Seasonal allergic rhinitis, unspecified trigger documented in this encounter Additional Health Concerns Assessment Noted Time PHQ-9 Depression Total Score: 4 12/09/19 24 10:18 AM EDT documented as of this encounter Care Teams Undercar Specialist Relationship Specialty Start Date End Date Farhana Horn DO [address] [place] [address] PCP - General Family Medicine 09/09/18 documented as of this encounter
--- OUTSIDE RECORDS SUMMARY | 2024-11-02 16:47 | XMS_ITS | Encounter Summary ---
Author Organization [employer] Address [address] [place] [address] [address] [place] [address] Care Team Providers Care Threading Machine Feeder Automatic Name Role Phone LizFarhana key Primary Care Provider [phone] Encounter Details Date Type Department Care Team (Late st Contact Info) Description 10/27/2024 Orders Only GENERIC EXTERNAL DATA DEPARTMENT Provider, Generic External Data Social History Tobacco Use Types Packs/Day Years [...] is your housing situation today? I have maaglie miguel 06/25/[address] you [...] 11/04/2024 10:00 AM EST Office Visit [facility] MEDICINE [address] [place], [place] [phone] Farhana Horn DO [address] [place], [place] [phone] documented as of this encounter Procedures Procedure Name Priority Date/Time Associated Diagnosis Comments HPV DNA, LOW/HIGH RISK Routine 10/27/2024 9:07 AM EST PAP SMEAR Routine 10/27/2024 9:07 AM EST documented in this encounter Results * Pap Smear (10/27/2024 9:07 AM EST) 10/27/2024 9:07 AM EST 10/27/2024 2:15 PM EST [facility] LABS - 11/02/2024 3:56 PM EST ----- ------- Name: Tri Bowens ? Age/Sex: 53/F ? : 1970 Unit#: [id number] ?? Attend Dr: Fabio Morin MD ?Re10/27/24 ?Status: DEP REF ? Location: HO.LNP ?Disch: ? ----- ------- SPEC : [id number] ? RECD: 10/27/24 ? STATUS: ??SOUT ? REQ NUM: [id number] ? ANITA: 10/27/24 ? SUBM DR: Fabio Morin MD ? ENTERED: ??10/27/24 ?SP TYPE: Pap Smr ?OTHR DR: Farhana Horn DO ? ORDERED: ??Pap Smear ? Interpretation ?? Satisfactory for evaluation. ?? Negative for intraepithelial lesion or malignancy. ? HPV High Risk: ??Positive ? HPV Genotyping 16: ??Negative ?? HPV Genotyping 18: ??Negative ?Clinical Information LMP:[place] Previous PAP test:2019 Other surgery: Other history: Copies To: ?? Farhana Horn DO ?? [facility] ?? [address] [facility] ?? [place] [address] ?? [phone] ?? Fabio Morin MD ?? [facility] ?? [address] [facility] [address] ?? [place] [address] ?? [phone] ----- ------- Signed (signature on file) CORI Ortez (ASCP) 11/02/24 1556 ? ----- ------- ? END OF REPORT ? us Generic External Data Provider LAB CYTOLOGY BROOKE GREY Final Result [facility] [address] [facility] [place] [address] [phone] * (ABNORMAL) HPV DNA, Low/High Risk (10/27/2024 9:07 AM EST) [facility] HPV High Risk Positive(A) Negative [facility] HPV Genotype 16 Negative Negative [facility] HPV Genotype 18 Negative Negative [facility] Comment:HPV testing performe d at [facility] (CLIA#[id number]), [address] [place] [address].Testing for HPV was performed using the Milana DESIRAE 6800system. The presence of HPV in the female genital tract isassociated with a number of diseases, including cervicalcarcinoma. The HPV DNA high risk pool tests for HPV 31, 33,35, 39, 45, 51, 52, 56, 58, 59, 66 and 68. The testing forHPV 16 and 18 genotypes has also been performed. A positiveresult indicates detection of nucleic acid sequences fromone or more subtypes, whereas a negative result indicatessuch sequences were not detected. 10/27/2024 9:07 AM EST 2024 6:20 AM EST us Generic External Data Provider LAB BLOOD ORDERAB LES Final Result [facility] [address] [place] [phone] documented in this encounter Visit Diagnoses Not on filedocumented in this encounter Additional Health Concerns Assessment Noted Time PHQ-9 Depression Total Score: 4 12/09/19 24 10:18 AM EDT documented as of this encounter Care Teams Threading Machine Feeder Automatic Relationship Specialty Start Date End Date Farhana Horn DO [address] [place] [address] PCP - General Family Medicine 09/09/18 documented as of this encounter
--- OUTSIDE RECORDS SUMMARY | 2024-11-02 16:47 | XMS_ITS | Encounter Summary ---
Author Organization [employer] Address [address] [facility] [address] [place] [address] Care Team Providers Care Master Technician Name Role Phone Farhana Horn Primary Care [...] Description 11/04/2024 10:00 AM EST Office Visit [facility] MEDICINE [address] [place] [address] Farhana Horn DO [address] [place] [address] documented as of this encounter Visit Diagnoses Not on filedocumented in this encounter Additional Health Concerns Assessment Noted Time PHQ-9 Depression Total Score: 4 12/09/19 24 10:18 AM EDT documented as of this encounter Care Teams Master Technician Relationship Specialty Start Date End Date Farhana Horn DO [address] [place] [address] PCP - General Family Medicine 09/09/18 documented as of this encounter
--- OUTSIDE RECORDS SUMMARY | 2024-11-02 16:47 | XMS_ITS | Clinical Summary ---
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 -DEXA with osteopenia JUL 2023 -STI/HIV screen [...] nightly -s/p optho eval Apr 2023 at [facility] -foot exam next visit* Allergic rhinitis [...] -f/u with neurology as scheduled -advised contact [facility] if no improvement Irritable bowel syndrome [...] Encounters Date Type Department Care Team Description 10/29/2024 Orders Only GENERIC EXTERNAL DATA DEPARTMENT Provider, Generic External Data 10/29/[address] [address] Farhana Horn DO Nurse Triage 10/29/2024 Telephone [facility] MEDICINE [address] [place] [address] Farhana Horn DO Appointment Request 10/27/2024 Orders Only GENERIC EXTERNAL DATA DEPARTMENT Provider, Generic External Data 10/23/2024 Refill [facility] [address] [place] [address] Farhana Horn DO Seasonal allergic rhinitis, unspecified trigger 10/22/2024 2:00 PM EST Office Visit [facility] OPTOMETRY [address] [place] [address] Steven, Danette, OD Diabetes type 2, no ocular involvement (CMS/HCC) (Primary Dx); Vitelliform lesion of macula; Headache, unspecified headache type; Presbyopia 10/22/2024 Travel 10/21/2024 Travel 10/15/2024 Telephone [facility] MEDICINE [address] [place] [address] Sudha Doss [place] Recall Letter (Recall Letter sent 10/15/24.) 09/21/2024 Refill [facility] MED & PEDS [address] [place] [address] Farhana Horn DO 09/08/2024 Refill [facility] MED[facility] [address] [place] [address] Farhana Horn DO 09/04/2024 Orders Only GENERIC [...] 10:00 AM EST Office Visit [facility] MEDICINE [address] [place] [address] Farhana Horn DO [address], [place] [phone] Health Maintenance Due Date Last Done Comments CT Colonography 1968 FIT DNA/Cologuard 1968 FIT 1968 FOBT 1968 Sigmoidoscopy 1968 Diabetes: Foot Exam 1978 Alcohol/Substance Use Screening 1980 Hepatitis B Vaccines (1 of 3 - 19+ 3-dose series) 1987 11/03/2008, 03/09/2008, 12/30/2007 Pap Smear 1989 10/27/2024 Colonoscopy 01/28/2024 01/27/2019 Colorectal Cancer Screening 01/28/2024 COVID-19 Vaccine ( season) 2024 07/26/2023, 07/06/2022, 09/12/2021, Additional history exists Influenza Vaccine (#1) 2024 , 07/03/2022, 07/10/2021, Additional history exists SDOH Screening 05/21/2024 05/21/2023 Diabetes: Hemoglobin A1C 07/15/20242 024, 12/09/2023, 07/26/2023, Additional history exists Diabetes: Urine Protein Screening 07/26/2024 07/26/2023, 01/25/2021 Lipid Panel 07/26/2024 07/26/2023, 06/11, 01/25/2021 Depression Screening 12/08/2024 12/09/2023, 12/09/19 Cervical Cancer Screening 08/01/2025 HPV/Cotest 08/01/2025 10/27/2024, 07/11, 08/01/2020, Additional history exists Mammogram 09/23/2025 09/23/2024, 10/2023, 09/07/2022, Additional history [...] Procedure Name Priority Date/Time Associated Diagnosis Comments CT ABDOMEN PELVIS W CONTRAST Routine 10/29/2024 11:53 PM EST URINALYSIS, COMPLETE, WITH REFLEX TO CULTURE Routine 10/29/2024 11:01 PM EST MAGNESIUM Routine 10/29/2024 12:06 PM EST COMPREHENSIVE METABOLIC PANEL Routine 10/29/2024 12:06 PM EST PROTHROMBIN TIME-INR Routine 10/29/2024 12:06 PM EST CBC WITH AUTO DIFFERENTIAL Routine 10/29/2024 12:06 PM EST SARS COV2/INFLUENZA A/B AND RSV RNA QL NAAT Routine 10/29/2024 12:06 PM EST PAP SMEAR Routine 10/27/2024 9:07 AM EST HPV DNA, LOW/HIGH RISK Routine 9:07 AM EST BI MAMMOGRAM SCREENING TOMOSYNTHESIS BILATERAL Routine 09/23/2024 [...] GENERATION W/RFL Routine 07/09/2022 8:24 AM EDT HM COLONOSCOPY Routine 01/27/2019 8:43 AM EDT from Last 3 Months or Most Recently Relevant to Health Maintenance Results * CT Abdomen Pelvis w/ Contrast (10/29/2024 11:53 PM EST) Anatomical Region Laterality Modality Body, Pelvis, Abdomen Computed T omography 10/29/2024 11:5 3 PM EST Narrative 10/29/2024 11:54 PM EST ? [facility] ?[address] ?[place] [address] ? CT Scan Report ? Signed ? Patient: Kwan,Tri ?MR#: [id number] ?? 63 ? : 1970 ?Acct:[id number] ? Age/Sex: 54 / F ?ADM Date: 10/29/24 ? Loc: HO.ED ? Attending Dr: ? Ordering Physician: Matt Nelson ?? Date of Service: 10/29/24 ?? Procedure(s): CT abdomen pelvis w IV con ?? Accession Number(s): [id number] ? cc: Farhana Horn DO; Matt Nelson ? Report Number: ?? [id number]: Total DLP = ??539.00 mGy-cm ? CLINICAL HISTORY: LLQ pain ? CT abdomen and pelvis with contrast ? Comparison: CT of the abdomen and pelvis from 12/26/2023 ? Findings: ?? No consolidation of the imaged lung bases. ?? No change in 3 mm nonobstructing right sided nephrolithiasis. No ?? hydronephrosis. No significant change in 1.2 cm left adrenal nodule. Right ?? adrenal gland is normal. Redemonstration of the moderate volume loss of ?? the pancreas. Liver and spleen appear unchanged. The gallbladder is ?? surgically absent. ?? Right dorsal pericecal lymph node measures 1.1 cm short axis (previously ?? 1.0 cm). No small bowel obstruction. Fluid in the cecum as can be seen ?? with diarrhea type illnesses and mild colitis. Portions of the sigmoid ?? colon are obscured. Mild colitis and/or diverticulitis considered of the ?? descending-sigmoid junction given wall thickening of the mild adjacent ?? fluid (imaged 53 of series 3). Trace fat containing left inguinal hernia. ?? Phleboliths are redemonstrated in the pelvis. ?? The uterus is anteverted. Mild wall thickening of the urinary bladder is ?? nonspecific. No adnexal soft tissue mass. Degenerative changes of the ?? hips, SI joints, and spine. Vacuum disc phenomenon at transitional ?? lumbosacral junction with guyqlrwu-wj-gygsnx bilateral facet arthropathy ?? and mild spinal stenosis by CT. ? IMPRESSION: ?? 1. Mild colitis including descending colon and sigmoid colon junction. ?? 2. No small bowel obstruction. ?? 3. No significant change in solid organs when compared to 12/26/2023. ? This document has been electronically signed by: Girish Zamora MD on ?? 10/29/2024 23:53:20 ? Dictated By: ?Girish Zamora MD ? Signed By: ?<Electronically signed by Girish Zamora MD in OV> ? 10/29/24 2353 ? DD/ 52 ? TD/TT: 10/29/242352 ? Wood Router Hand: ? Procedure Note Wai Bose - 10/29/[address] [place] [address] [address] Scan Report Signed Patient: Tri BowensMR#: [id number] 63 : 1970Acct:[id number] Age/Sex: 54 / FADM Date: 10/29/24 Loc: HO.ED Attending Dr: Ordering Physician: Matt Nelson Date of Service: 10/29/24 Procedure(s): CT abdomen pelvis w IV con Accession Number(s): [id number] cc: Farhana Horn DO; Matt Nelson Report Number: [id number]: Total DLP = 539.00 mGy-cm CLINICAL HISTORY: LLQ pain CT abdomen and pelvis with contrast Comparison: CT of the abdomen and pelvis from 12/26/2023 Findings: No consolidation of the imaged lung bases. No change in 3 mm nonobstructing right sided nephrolithiasis. No hydronephrosis. No significant change in 1.2 cm left adrenal nodule. Right adrenal gland is normal. Redemonstration of the moderate volume loss of the pancreas. Liver and spleen appear unchanged. The gallbladder is surgically absent. Right dorsal pericecal lymph node measures 1.1 cm short axis (previously 1.0 cm). No small bowel obstruction. Fluid in the cecum as can be seen with diarrhea type illnesses and mild colitis. Portions of the sigmoid colon are obscured. Mild colitis and/or diverticulitis considered of the descending-sigmoid junction given wall thickening of the mild adjacent fluid (imaged 53 of series 3). Trace fat containing left inguinal hernia. Phleboliths are redemonstrated in the pelvis. The uterus is anteverted. Mild wall thickening of the urinary bladder is nonspecific. No adnexal soft tissue mass. Degenerative changes of the hips, SI joints, and spine. Vacuum disc phenomenon at transitional lumbosacral junction with dzblubnw-dh-ljhwjq bilateral facet arthropathy and mild spinal stenosis by CT. IMPRESSION: 1. Mild colitis including descending colon and sigmoid colon junction. 2. No small bowel obstruction. 3. No significant change in solid organs when compared to 12/26/2023. This document has been electronically signed by: Girish Zamora MD on 10/29/2024 23:53:20 Dictated By: Girish Zamora MD Signed By: <Electronically signed by Girish Zamora MD in OV> 10/29/242352 DD/ 52 TD/TT: 10/29/242352 Wood Router Hand: [facility] External Provider IMG CT PROCEDURES Final Result * (ABNORMAL) Urinalysis, Complete, with Reflex to Culture (10/29/2024 11:01 PM EST) Color Urine Dark Yellow [facility] Appearance Urine Cloudy [facility] PH 5.5 5.0 - 9.0 [facility] Glucose Urine UA Negative Negative mg/dL [facility] Urine Blood Negative Negative [facility] Specific [place] - Urine >=1.030(H) 1.005 - 1.025 [facility] Urine Protein 30 (1+)(A) Neg-Trace mg/dL [facility] Urine Ketones 15 Negative mg/dL [facility] Nitrite Urine Negative Negative [facility] Leukocyte Esterase Urine Trace(A) Negative [facility] RBC Urine 0-2 0 - 2 /HPF [facility] Urine WBC 0-5 0 - 5 /HPF [facility] Urine Squamous Epithelial Cell 3-5 0 - 2 /HPF [facility] Urine Bacteria 1+ None Seen [facility] Hyaline Casts, Urine 3-5 0 - 2 /LPF [facility] 10/29/2024 11:0 1 PM EST 10/29/2024 11:12 PM EST Narrative [facility] - 10/29/2024 11:24 PM EST Urine, Clean Catch us Generic External Data Provider LAB URINE ORDERAB LES Final Result [facility] [address] [place] [address] [phone] * SARS-CoV-2 RNA, Influenza A/B, and RSV RNA, Ql NAAT (10/29/2024 12:06 PM EST) Influenza A PCR NEGATIVE Negative [facility] Influenza B PCR NEGATIVE Negative [facility] Resp Syncy Virus RNA Qual PCR NEGATIVE Negative [facility] SARS COV2 PCR NEGATIVE Negative [facility] Comment:All test results mus t be correlated with clinical findings.Negative results do not preclude SARS-CoV2, influenza Avirus, influenza B virus and/or RSV infectionand should not be used as the sole basis for treatment orother patient management decisions. Negative results must becombined with clinical observations, patient history, andepidemiological information.This test has not been evaluated for monitoring treatment ofinfection.This test has been authorized by the FDA under an EmergencyUse Authorization (EUA) for use by authorized laboratories.Testing performed on the [employer] GeneXpert utilizingreal-time RT-PCR.All SARS CoV2 and positive influenza A/B results arereported to [facility]. 10/29/2024 12:0 6 PM EST 10/29/2024 12:09 PM EST us Generic External Data Provider LAB MICROBIOLOGY - GENERAL ORDERABLES Final Result [facility] [address] [place] [address] [phone] * (ABNORMAL) CBC auto differential (10/29/2024 12:06 PM EST) White Blood Count 7.4 4.8 - 10.8 X10*3/uL [facility] Red Blood Count 4.83 4.20 - 5.50 X10*6/uL [facility] Hemoglobin 13.3 12.0 - 16.0 g/dl [facility] Hematocrit 40.4 37.0 - 47.0 % [facility] Mean Corpuscular Volume 83.6 80.0 - 98.0 fL [facility] Mean Corpuscular Hemoglobin 27.5 27.0 - 33.0 pg [facility] Mean Corpuscular HGB Conc 32.9 31.0 - 35.0 g/dl [facility] Red Cell Distribution Width 13.4 11.0 - 16.0 % [facility] Platelet Count 302 160 - 400 X10*3/uL [facility] Mean Platelet Volume 8.0(L) 9.4 - 12.3 fL [facility] Neutrophils Percent Auto 45.2 45 - 73 % [facility] Imm Gran Pct Auto 0.1 0.0 - 0.4 % [facility] Lymphocytes Percent Auto 40.7(H) 20 - 40 % [facility] Monocytes Percent Auto 11.2(H) 2 - 11 % [facility] Eosinophils Percent Auto 2.4 0 - 4 % [facility] Basophils Percent Auto 0.4 0 - 2 % [facility] NRBC Pct Auto 0.0 0.0 - 0.2 /100WBC [facility] Neutrophils Absolute Auto 3.3 2.0 - 8.3 x10*3/uL [facility] Imm Gran Abs Auto 0.01 0.00 - 0.03 X10*3/uL [facility] Lymphocytes Absolute Auto 3.0 1.2 - 4.9 X10*3/uL [facility] Monocytes Absolute Auto 0.8 0.1 - 1.2 X10*3/uL [facility] Eosinophils Absolute Auto 0.2 0.0 - 0.4 X10*3/uL [facility] Basophils Absolute Auto 0.0 0.0 - 0.2 X10*3/uL [facility] NRBC Abs Auto 0.000 0.0 - 0.012 X10*3/uL [facility] 10/29/2024 12:0 6 PM EST 10/29/2024 12:09 PM EST us Generic External Data Provider LAB BLOOD ORDERAB LES Final Result Performing Organization Address [facility] de Phone Number [facility] [address] [place] [phone] * (ABNORMAL) Prothrombin Time-INR (10/29/2024 12:06 PM EST) Prothrombin Time 12.6(H) 10.9 - 12.4 SEC [facility] INTERNATIONAL NORM RATIO 1.1 0.9 - 1.1 [facility] Comment:INTERNATIONAL NORMAL IZED RATIO (INR) REFERENCE RANGES Reference RangeFor patients not on anticoagulant therapy: 0.9 - 1.1INR ranges for oral anticoagulanttherapy:For prevention and treatment of venous thrombosis and pulmonary embolism: 2.0 - 3.0For acute myocardial infarction with aspirin therapy: 2.0 - 3.0For acute myocardial infarction without aspirin therapy: 3.0 - 4.0For patients with mechanical prosthetic heart valves: 2.5 - 3.5 10/29/2024 12:0 6 PM EST 10/29/2024 12:09 PM EST Generic External Data Provider LAB BLOOD ORDERAB LES Final Result Performing Organization Address [facility] Co de Phone Number [facility] [address] [place] [address] [phone] * Magnesium (10/29/2024 12:06 PM EST) Magnesium 1.9 1.6 - 2.6 mg/dL [facility] 10/29/2024 12:0 6 PM EST 10/29/2024 12:09 PM EST us Generic External Data Provider LAB BLOOD ORDERAB LES Final Result Performing Organization Address [facility] Co de Phone Number [facility] [address] [place] [address] [phone] * (ABNORMAL) Comprehensive Metabolic Panel (10/29/2024 12:06 PM EST) Pathologist [facility] Sodium 140 135 - 145 mmol/L [facility] Potassium 3.7 3.3 - 5.1 mmol/L [facility] Chloride 112(H) 96 - 108 mmol/L [facility] Carbon Dioxide 21(L) 22 - 29 mmol/L [facility] Anion Gap 11(L) 12 - 20 [facility] Urea Nitrogen (BUN) 19(H) 9 - 16 mg/dL [facility] Creatinine, Serum 0.79 0.5 - 1.4 mg/dL [facility] Creatinine Clr Calc Pharmacy 68.7 [facility] Comment:Provided height and weight: 152.4 cm,68.6 kg.eGFR (calculated from the MDRD study equation) and eCrCl(calculated from the Cockcroft-Gault equation) are based ondifferent parameters and may not yield comparable results.If eCrCl result is absurd, please check patient'sheight/weight. Estimated Glomerular Filt Rate >60 [facility] Comment:Chronic Kidney Disea se: Estimated GFR < 60 mL/min/1.28n2Xhgzru Kidney Disease: Estimated GFR < 15 mL/min/1.73m2 Glucose 123(H) 60 - 115 mg/dL [facility] Calcium 9.3 8.4 - 10.2 mg/dL [facility] Bilirubin, Total 0.4 0.0 - 1.0 mg/dL [facility] Aspartate Amino Transferase 28 5 - 31 U/L [facility] Alanine Aminotransferase 41(H) 0 - 31 U/L [facility] Total Protein 8.2(H) 6.5 - 8.0 g/dL [facility] Albumin Level 4.2 3.5 - 5.0 g/dL [facility] Alkaline Phosphatase 140(H) 39 - 117 U/L [facility] 10/29/2024 12:0 6 PM EST 10/29/2024 12:09 PM EST us Generic External Data Provider LAB BLOOD ORDERAB LES Final Result [facility] [address] [place] [phone] * (ABNORMAL) HPV DNA, Low/High Risk (10/27/2024 9:07 AM EST) HPV High Risk Positive(A) Negative [facility] HPV Genotype 16 Negative Negative [facility] HPV Genotype 18 Negative Negative [facility] Comment:HPV testing performe d at [facility] (CLIA#[id number]), [address] [place] [address].Testing for HPV was performed using the Milana [...] Provider LAB BLOOD ORDERAB LES Final Result [facility] [address] [place] [address] [phone] * Pap Smear (10/27/2024 9:07 AM EST) 10/27/2024 9:07 AM EST 10/27/2024 2:15 PM EST Narrative [facility] - 11/02/2024 3:56 PM EST ----- ------- Name: Tri Bowens ? Age/Sex: 53/F ? : 1970 Unit#: [id number] ?? Attend Dr: Fabio Morin MD ?Re10/27/24 ?Status: DEP REF ? Location: HO.LNP ?Disch: ? ----- ------- SPEC : [id number] ? RECD: 10/27/24-1414 ? STATUS: ??SOUT ? REQ NUM: [id number] ? ANITA: 10/27/24 ? SUBM DR: Fabio [...] Copies To: ?? Farhana Horn DO ?? [facility] ?? [address] ?? [place] [address] ?? [phone] ?? Fabio Morin MD ?? [facility] Women[facility] Services ?? [address] ?? [place] [address] ?? [phone] ----- ------- Signed (signature on file) [facility] 11/02/24 1556 ? ----- ------- ? END OF REPORT ? us Generic External Data Provider LAB CYTOLOGY NUBIAE QUE Final Result Performing Organization Address [facility]/State/[facility] Co de Phone Number [facility] [address] [place] [address] [phone] * BI Mammogram Screening Tomosynthesis Bilateral (09/23/2024 10:30 AM EST) Anatomical Region Laterality Modality Breast Bilateral Mammography 09/23/2024 10:3 0 AM EST Narrative 10/04/2024 9:14 AM EST ? [facility] ? [address] ?[place] [address] ? Mammography Report ? Signed ? Patient: Kwan,Tri ?MR#: [id number] ?? 63 ? : 1970 ?Acct:[id number] ? Age/Sex: 53 / F ?ADM Date: 01/15/25 ? Loc: HO.MAMMO ? Attending Kailee Horn DO ? Ordering Physician: Farhana Horn DO ?Results: 1N ?? egative ? Date of Service: 09/23/24 ?Follow Up: 1 Year From Orig ?? inal Mammogram ? Procedure(s): MM tomosynthesis screening BI ?? Accession Number(s): [id number] ? cc: Farhana Horn DO ? EXAMINATION: [...] ??Francia Vázquez DO ??10/04/2024 09:11 AM EST ?? RP ? Dictated By: ?Francia Vázquez DO ? Signed By: ?<Electronically signed by Francia Vázquez, DO in OV> ? 10/04/24 0911 ? DD/ 1030 ? TD/TT: 09/23/24 1041 ? Wood Router Hand: ? Procedure Note Donotuseinterpreter, Image - [facility] [address] [place] [address] Mammography Report Signed Patient: Wang Bowens#: [id number] 63 : 1970Acct:[id number] Age/Sex: 53 / FADM Date: 09/23/24 Loc: HO.MAMMO Attending Dr: Farhana Horn DO Ordering Physician: Farhana Hornults: 1N egative Date of Service: 09/23/24Follow Up: 1 Year From Orig ina Mammogram Procedure(s): MM tomosynthesis screening BI Accession Number(s): [id number] cc: Farhana Horn DO EXAMINATION: MM SCREENING [...] 10/04/24 0911 DD/ 1030 TD/TT: 09/23/24 1041 Wood Router Hand: us Farhana Horn DO IMG BI PROCEDURES Edited Res ult - Final * Hematoxylin and Eosin Stain (09/04/2024 10:52 AM EST) 09/04/2024 10:5 2 AM EST 09/04/2024 11:33 AM EST [facility] - 09/11/2024 8:22 AM EST ----- ------- Name: Tri Bowens ? Age/Sex: 53/F ? : 1970 Unit#: [id number] ?? Attend Dr: Nani Bonner MD ?Re09/04/24 ?Status: DEP SDC ? Location: HO.SSS ?Disch: ? ----- ------- SPEC : [id number] ? RECD: 09/04/24-1132 ? STATUS: ??SOUT ? REQ NUM: [id number] ? ANITA: 09/04/24-1052 ? SUBM DR: Nani Bonner MD ? ENTERED: ??09/04/24-0 ?SP TYPE: Surgical ? OTHR : Farhana Horn DO ? ORDERED: ??HE Stain/9, Gross Micro L4/3, IHC, H. pylori ?Addendum Addendum ??1 ?Entered: 09/11/24 Immunostain for H. pylori on A is negative. ?? Control stains appropriately. Addendum Signed (signature on file) Deb [place] 09/11/24821 ? ----- ------- ? Diagnosis ?? [...] ? Age/Sex: 53/F ? : 1970 Unit#: [id number] ?? Attend Dr: Nani Bonner MD ?Re09/04/24 ?Status: DEP SDC ? Location: HO.SSS ?Disch: ? ----- ------- SPEC : [id number] ? RECD: 09/04/24-933 ? STATUS: ??SOUT ? REQ NUM: [id number] ? ANITA: 09/04/24-1052 ? SUBM DR: Nani [...] Copies To: ?? Farhana Horn DO ?? [facility] ?? [address] ?? [place] [address] ?? [phone] ?? Nani Bonner MD ?? [facility] Gastroenterology Services ?? [address] ?? [place] [address] ?? [phone] ?? [email or web address] ----- ------- Signed (signature on file) Deb [place] 09/07/24 1557 ? ----- ------- ? END OF REPORT ? Generic External Data Provider LAB BLOOD ORDERAB LES Final Result Performing Organization Address [facility] de Phone Number [facility] [address] [place] [address] [phone] * Glucose, Whole Blood (09/04/2024 10:10 AM EST) [facility] Glucose, Whole Blood 107 60 - 115 mg/dL [facility] Comment:METER #: [id number] 09/04/2024 10:1 0 AM EST 09/04/2024 10:18 AM EST Generic External Data Provider LAB BLOOD ORDERAB LES Final Result Performing Organization Address [facility] de Phone Number [facility] [address] [place] [address] [phone] * (ABNORMAL) POCT HGB A1C (04/14/2024 11:30 AM EDT) [facility] Hemoglobin A1C 6.2(A) 4.0 - 6.0 % QC Media Lot # [id number] Lot# Expiration Date Blood 04/14/2024 11:3 0 AM EDT Farhana Horn DO POINT OF CARE TEST ENTER/PAUL T ORDERABLES Final Result * Albumin, Random Urine W/Creatinine (07/26/2023 12:26 PM EST) Creatinine, Urine 182.16 mg/dL [facility] Microalbumin Urine 14.0 mg/L [facility] Microalbum Creatinine Ratio Ur 7.6 <30 ug/mg cr [facility] Comment:Albumin/Creatinine R atio Reference Ranges: Normal: < 30 ug/mg creatinine Microalbuminuria: 30 - 300 ug/mg creatinineClinical Albuminuria: > 300 ug/mg creatinine 07/26/2023 12:2 6 PM EST 07/26/2023 1:28 PM EST Farhana Horn DO LAB URINE ORDERABLES Final R esult [facility] [address] [place] [phone] * (ABNORMAL) Lipid Panel, Standard (07/26/2023 12:23 PM EST) Triglycerides 132 <150 mg/dL [facility] Comment:Desirable Triglyceri de: less than 150 mg/dLBorderline High Triglyceride 150-199 mg/dLHigh Triglyceride: 200-499 mg/dLVery High Triglyceride: greater than or equal to 5OO mg/dL Cholesterol 150 <200 mg/dL [facility] Comment:Desirable Cholestero l: less than 200 mg/dLBorderline High Cholesterol: 200-239 mg/dLHigh Cholesterol: greater than 239 mg/dL LDL Cholesterol Calculated 85 <100 mg/dL [facility] Comment:Desirable LDL: less than 100 mg/dLNear Optimal/Above Optimal LDL: 110- 129 mg/dLBorderline High LDL: 130-159 mg/dLHigh LDL: 160-189 mg/dLVery High LDL: greater than or equal to 190 mg/dL HDL Cholesterol 39(L) >40 mg/dL [facility] [facility] Comment:Desirable HDL: great er than 40 mg/dL Note: This HDL assay may give artificially low results in patients with liver disease. Blood Venous blood specimen / Unknown 07/26/2023 12:23 PM EST 07/26/2023 1:26 PM EST Farhana Horn DO LAB BLOOD ORDERABLES Final R esult Performing Organization Address [facility]/ZIP Co de Phone Number [facility] [address] [place] [address] [phone] * HEPATITIS C AB W/REFL TO [...] a test for HCV RNA (test code 24892) is suggested. ?? For additional information please refer to http://education.Lionseek/faq/LKD13b7 (This link is being provided for informational/ educational purposes only.) ?? 07/09/2022 8:24 AM EDT Farhana Horn DO HISTORICAL/NON ORDERABLE LAB S Final Result Performing Organization Address City/[facility] Co de Phone Number CONVERTED LEGACY LABS [...] ? For additional information please refer to http://View the Space.Lionseek/faq/EEZ056 (This link is being provided for informational/ educational purposes only.) ? The performance of this assay has not been clinically validated in patients less than 2 years old. ?? 07/09/2022 8:24 AM EDT Farhana Horn DO LAB BLOOD ORDERABLES Final R esult CONVERTED LEGACY LABS * Hm Colonoscopy (01/27/2019 8:43 AM EDT) Historical Provider HEALTH MAINTENANCE Final Result from Last 3 Months or Most Recently Relevant to Health Maintenance Insurance [facility] C3 Care Teams Insurance Billing Specialist Relationship Specialty Start Date End Date Farhana Horn DO [address] [place] [phone] PCP - General Family Medicine 09/09/18
--- OUTSIDE RECORDS SUMMARY | 2024-11-02 16:48 | XMS_ITS | Encounter Summary ---
Author Organization [employer] Address [address] [place] [address] [address] [place] [address] Care Team Providers Care Test Desk Trouble Locator Name Role Phone Farhana Horn DO Primary Care Provider + [phone] Reason for Visit * Reason Comments Med Refill Encounter Details Date Type Department Care Team (Late Contact Info) Description 12/13/2022 Refill [facility] [address] [place] [address] [facility] [address] [place] [address] Hyperlipidemia, unspecified hyperlipidemia type Social History Tobacco [...] Department Care Team (Late Contact Info) Description 11/04/2024 10:00 AM EST Office Visit [facility] MEDICINE [address] [place] [address] Farhana Horn DO [address] [place] [address] documented as of this encounter Visit Diagnoses Diagnosis Hyperlipidemia, unspecified hyperlipidemia type documented in this encounter Care Teams Test Desk Trouble Locator Relationship Specialty Start Date End Date Farhana Horn DO [address] [place] [address] PCP - General Family Medicine 09/09/18 documented as of this encounter
--- OUTSIDE RECORDS SUMMARY | 2024-11-02 16:48 | XMS_ITS | Encounter Summary ---
Author Organization [employer] Address [address] [facility] 7t [place] [address] Care Team Providers Care Health And Safety Consultant Name Role Phone Farhana Horn Primary Care Provider [phone] Reason for Visit * Reason Onset Date Comments Recall Letter 10/15/2024 Recall Letter se nt 10/15/24. Encounter Details Date Type Department Care Team ([facility] st Contact Info) Description 10/15/2024 Telephone [facility] [address] [place] [address] Sudha Doss [place] Recall Letter (Recall Letter [...] Description 11/04/2024 10:00 AM EST Office Visit [facility] [address] [place] [address] Farhana Horn DO [address] [place] [address] documented as of this encounter Visit Diagnoses Not on filedocumented in this encounter Additional Health Concerns Assessment Noted Time PHQ-9 Depression Total Score: 4 12/09/19 24 10:18 AM EDT documented as of this encounter Care Teams Health And Safety Consultant Relationship Specialty Start Date End Date Farhana Horn DO [address] [place] [address] PCP - General Family Medicine 09/09/18 documented as of this encounter
--- OUTSIDE RECORDS SUMMARY | 2024-11-02 16:48 | XMS_ITS | Encounter Summary ---
Author Organization [employer] Address [address] [place] [address] 7[address] [place] [address] Care Team Providers Care Racebook Writer Name Role Phone Farhana Horn DO Primary Care Provider + [phone] Reason for Visit * Reason Onset Date Comments Nurse Triage 10/29/2024 Encounter Details Date Type Department Care Team ([facility] st Contact Info) Description 10/29/2024 Telephone [facility] [address] [place] [address] Farhana Horn DO [address] [place] [address] Nurse Triage Social History Tobacco Use Types Packs/Day Years [...] encounter Miscellaneous Notes * Telephone Encounter - Allison Marshall RN - 10/30/2024 9:14 AM EST Noted. Patient spoke to PCP's [place] today and was scheduled for an appointment on 11/04/24 for ED f/u visit. Patient to f/u PRN. * Telephone Encounter - Chanel Colindres RN - 10/29/2024 10:17 AM EST Sent to team for [facility] ER status check PRN. * Telephone Encounter - Chanel Colindres RN - 10/29/2024 10:11 AM EST No group manager needed as this quality analyst/technical writer speaks Ugandan. Call returned to Tri Bowens to triage below. Reports having diarrhea and vomiting x 2 days. Per pt also having right arm numbness. Pt also having epigastric abdominal pain. Pt has hx of GERD. Used esomeprazole yesterday. Pt endorses having green bile with vomitng, abdominal distention and black stools. Pt also states has not had any urineoutput in past 8 hours. Pt advised of disposition, agrees to [facility] ER now for exam. Protocol Used: Vomiting (Adult) Protocol-Based Disposition: Go to ED/UCC Now (or to Office with PCP Approval) Positive Triage Question: * Drinking very little and has signs of dehydration (e.g., no urine > 12 hours, very dry mouth, very lightheaded) * All higher-acuity triage questions were negative Care Advice Discussed: * Reassurance and Education * Clear Liquids * Reasons To Call Back - Vomiting lasts for more than 2 days (48 hours) - Diarrhea lasts more than 7 days - You become worse * Telephone Encounter - Skip Nain - 10/29/2024 9:56 AM EST Symptoms: Diarrhea, Vomiting Outcome: Talk to a nurse or provider within 15 minutes Reason: Severe headache The caller accepted this outcome. documented in this encounter Plan of Treatment Upcoming Encounters Date Type Department Care Team (Late st Contact Info) Description 11/04/2024 10:00 AM EST Office Visit [facility] [address] [place] [address] Farhana Horn DO [address] [place] [address] documented as of this encounter Visit Diagnoses Not on filedocumented in this encounter Additional Health Concerns Assessment Noted Time PHQ-9 Depression Total Score: 4 12/09/19 24 10:18 AM EDT documented as of this encounter Care Teams Racebook Writer Relationship Specialty Start Date End Date Farhana Horn DO [address] [place] [address] PCP - General Family Medicine 09/09/18 documented as of this encounter
--- OUTSIDE RECORDS SUMMARY | 2024-11-02 16:48 | XMS_ITS | Encounter Summary ---
Author Organization [employer] Address [address] [place] [address] 7 [place] [address] Care Team Providers Care Apparel Rental Clerk Name Role Phone Farhana Horn DO Primary Care Provider + [phone] Reason for Visit * Reason Onset Date Comments Appointment Request 10/29/2024 Encounter Details Date Type Department Care Team ([facility] st Contact Info) Description 10/29/2024 Telephone [facility] MED[facility] [address] [place] [address] Farhana Horn DO [address] [place] [address] Appointment Request Social History Tobacco Use Types Packs/Day Years [...] Telephone Encounter - Sudha Doss [place] - 10/30/2024 9:38 AM EST Spoke with schedule follow up appointment w/PCP 11/04/24 at 10am. * Telephone Encounter - Skip Gillette - 10/29/2024 9:53 AM EST Tc from pt requesting a follow up appt with PCP. documented in this encounter Plan of Treatment Upcoming Encounters Date Type Department Care Team (Late st Contact Info) Description 11/04/2024 10:00 AM EST Office Visit [facility] [address] [place] [address] Farhana Horn DO [address] [place] [address] documented as of this encounter Visit Diagnoses Not on filedocumented in this encounter Additional Health Concerns Assessment Noted Time PHQ-9 Depression Total Score: 4 12/09/19 24 10:18 AM EDT documented as of this encounter Care Teams Apparel Rental Clerk Relationship Specialty Start Date End Date Farhana Horn DO [address] [place] [address] PCP - General Family Medicine 09/09/18 documented as of this encounter
--- OUTSIDE RECORDS SUMMARY | 2024-11-02 16:48 | XMS_ITS | Encounter Summary ---
Author Organization [email or web address] Address [address] [place] [address] [address] [place] [address] Care Team Providers Care Tire Balancer Name Role Phone LizFarhana eky Primary Care Provider [phone] Encounter Details Date Type Department Care Team (Late st Contact Info) Description 10/29/2024 Orders Only GENERIC EXTERNAL DATA [...] Description 11/04/2024 10:00 AM EST Office Visit [facility] [address] [place], [place] [phone] Farhana Horn, [address] [place], [place] [phone] documented as of this encounter Procedures Procedure Name Priority Date/Time Associated Diagnosis Comments CT ABDOMEN PELVIS W CONTRAST Routine 10/29/2024 11:53 PM EST URINALYSIS, COMPLETE, WITH REFLEX TO CULTURE Routine 10/29/2024 11:01 PM EST SARS COV2/INFLUENZA A/B AND RSV RNA QL NAAT Routine 10/29/2024 12:06 PM EST CBC WITH AUTO DIFFERENTIAL Routine 10/29/2024 12:06 PM EST PROTHROMBIN TIME-INR Routine 10/29/2024 12:06 PM EST MAGNESIUM Routine 10/29/2024 12:06 PM EST COMPREHENSIVE METABOLIC PANEL Routine 10/29/2024 12:06 PM EST documented in this encounter Results * CT Abdomen Pelvis w/ Contrast (10/29/2024 11:53 PM EST) Anatomical Region Laterality Modality Body, Pelvis, Abdomen Computed T omography 10/29/2024 11:5 3 PM EST Narrative 10/29/2024 11:54 PM EST ? [facility] ?[address] ?[place] [address] ? CT Scan Report ? Signed ? Patient: Kwan,Tri ?MR#: [id number] ?? 63 ? : 1970 ?Acct:[id number] ? Age/Sex: 54 / F ?ADM Date: 10/29/24 ? Loc: HO.ED ? Attending Dr: ? Ordering Physician: Matt Nelson ?? Date of Service: 10/29/24 ?? Procedure(s): CT abdomen pelvis w IV con ?? Accession Number(s): [id number] ? cc: Farhana Horn DO; Matt Nelson ? Report Number: ?? [id number]: Total DLP = ??539.00 mGy-cm ? 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 and mild spinal [...] by Girish Zamora MD in OV> ? 10/29/242352 ? DD/ 52 ? TD/TT: 10/29/24 2353 ? Travel Rn Or: ? 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 with bvjqyvab-yl-cpnnok bilateral facet arthropathy and mild spinal stenosis [...] in OV> 10/29/242352 DD/ 52 TD/TT: 10/29/242352 Travel Rn Or: [facility] External Provider IMG CT PROCEDURES Final Result * (ABNORMAL) Urinalysis, Complete, with Reflex to Culture (10/29/2024 11:01 PM EST) Color Urine Dark Yellow [facility] Appearance Urine Cloudy [facility] PH 5.5 5.0 - 9.0 [facility] Glucose Urine UA Negative Negative mg/dL [facility] Urine Blood Negative Negative [facility] Specific [place] - Urine >=1.030(H) 1.005 - 1.025 [facility] Urine Protein 30 (1+)(A) Neg-Trace mg/dL [facility] Urine Ketones 15 Negative mg/dL [facility] Nitrite Urine Negative Negative [facility] Leukocyte Esterase Urine Trace(A) Negative [facility] RBC Urine 0-2 0 - 2 /HPF [facility] Urine WBC 0-5 0 - 5 /HPF [facility] Urine Squamous Epithelial Cell 3-5 0 - 2 /HPF [facility] Urine Bacteria 1+ None Seen [facility] Hyaline Casts, Urine 3-5 0 - 2 /LPF [facility] 10/29/2024 11:0 1 PM EST 10/29/2024 11:12 PM EST Narrative [facility] - 10/29/2024 11:24 PM EST Urine, Clean Catch Generic External Data Provider LAB URINE ORDERAB LES Final Result Performing Organization Address [facility] Co de Phone Number [facility] [address] [place] [phone] * SARS-CoV-2 RNA, Influenza A/B, and RSV RNA, Ql NAAT (10/29/2024 12:06 PM EST) Influenza A PCR NEGATIVE Negative [facility] Influenza B PCR NEGATIVE Negative [facility] Resp Syncy Virus RNA Qual PCR NEGATIVE Negative [facility] SARS COV2 PCR NEGATIVE Negative [facility] Comment:All test results mus t be [...] use by authorized laboratories.Testing performed on the [employer] GeneXpert utilizingreal-time RT-PCR.All SARS CoV2 and positive influenza A/B results arereported to [facility]. 10/29/2024 12:0 6 PM EST 10/29/2024 12:09 PM EST Generic External Data Provider LAB MICROBIOLOGY - GENERAL ORDERABLES Final Result Performing Organization Address [facility]/ZIP Co de Phone Number [facility] [address] [place] [phone] * Magnesium (10/29/2024 12:06 PM EST) Magnesium 1.9 1.6 - 2.6 mg/dL [facility] 10/29/2024 12:0 6 PM EST 10/29/2024 12:09 PM EST us Generic External Data Provider LAB BLOOD ORDERAB LES Final Result [facility] [address] [place] [address] [phone] * (ABNORMAL) Comprehensive Metabolic Panel (10/29/2024 12:06 PM EST) Sodium 140 135 - 145 mmol/L [facility] Potassium 3.7 3.3 - 5.1 mmol/L [facility] Chloride 112(H) 96 - 108 mmol/L [facility] Carbon Dioxide 21(L) 22 - 29 mmol/L [facility] Anion Gap 11(L) 12 - 20 [facility] Urea Nitrogen (BUN) 19(H) 9 - 16 mg/dL [facility] Creatinine, Serum 0.79 0.5 - 1.4 mg/dL [facility] Creatinine Clr Calc Pharmacy 68.7 [facility] Comment:Provided height and weight: 152.4 cm,68.6 kg.eGFR (calculated from the MDRD study equation) and eCrCl(calculated from the Cockcroft-Gault equation) are based ondifferent parameters and may not yield comparable results.If eCrCl result is absurd, please check patient'sheight/weight. Estimated Glomerular Filt Rate >60 [facility] Comment:Chronic Kidney Disea se: Estimated GFR < 60 mL/min/1.35j9Tbhrlf Kidney Disease: Estimated GFR < 15 mL/min/1.73m2 Glucose 123(H) 60 - 115 mg/dL [facility] Calcium 9.3 8.4 - 10.2 mg/dL [facility] Bilirubin, Total 0.4 0.0 - 1.0 mg/dL [facility] Aspartate Amino Transferase 28 5 - 31 U/L [facility] Alanine Aminotransferase 41(H) 0 - 31 U/L [facility] Total Protein 8.2(H) 6.5 - 8.0 g/dL [facility] Albumin Level 4.2 3.5 - 5.0 g/dL [facility] Alkaline Phosphatase 140(H) 39 - 117 U/L [facility] 10/29/2024 12:0 6 PM EST 10/29/2024 12:09 PM EST Generic External Data Provider LAB BLOOD ORDERAB LES Final Result Performing Organization Address [facility] Co de Phone Number [facility] [address] [place] [phone] * (ABNORMAL) Prothrombin Time-INR (10/29/2024 12:06 PM EST) Prothrombin Time 12.6(H) 10.9 - 12.4 SEC [facility] INTERNATIONAL NORM RATIO 1.1 0.9 - 1.1 [facility] Comment:INTERNATIONAL NORMAL IZED RATIO (INR) [...] ORDERAB LES Final Result Performing Organization Address [facility] Co de Phone Number [facility] [address] [place] [phone] * (ABNORMAL) CBC auto differential (10/29/2024 12:06 PM EST) White Blood Count 7.4 4.8 - 10.8 X10*3/uL [facility] Red Blood Count 4.83 4.20 - 5.50 X10*6/uL [facility] Hemoglobin 13.3 12.0 - 16.0 g/dl [facility] Hematocrit 40.4 37.0 - 47.0 % [facility] Mean Corpuscular Volume 83.6 80.0 - 98.0 fL [facility] Mean Corpuscular Hemoglobin 27.5 27.0 - 33.0 pg [facility] Mean Corpuscular HGB Conc 32.9 31.0 - 35.0 g/dl [facility] Red Cell Distribution Width 13.4 11.0 - 16.0 % [facility] Platelet Count 302 160 - 400 X10*3/uL [facility] Mean Platelet Volume 8.0(L) 9.4 - 12.3 fL [facility] Neutrophils Percent Auto 45.2 45 - 73 % [facility] Imm Gran Pct Auto 0.1 0.0 - 0.4 % [facility] Lymphocytes Percent Auto 40.7(H) 20 - 40 % [facility] Monocytes Percent Auto 11.2(H) 2 - 11 % [facility] Eosinophils Percent Auto 2.4 0 - 4 % [facility] Basophils Percent Auto 0.4 0 - 2 % [facility] NRBC Pct Auto 0.0 0.0 - 0.2 /100WBC [facility] Neutrophils Absolute Auto 3.3 2.0 - 8.3 x10*3/uL [facility] Imm Gran Abs Auto 0.01 0.00 - 0.03 X10*3/uL [facility] Lymphocytes Absolute Auto 3.0 1.2 - 4.9 X10*3/uL [facility] Monocytes Absolute Auto 0.8 0.1 - 1.2 X10*3/uL [facility] Eosinophils Absolute Auto 0.2 0.0 - 0.4 X10*3/uL [facility] Basophils Absolute Auto 0.0 0.0 - 0.2 X10*3/uL [facility] NRBC Abs Auto 0.000 0.0 - 0.012 X10*3/uL [facility] 10/29/2024 12:0 6 PM EST 10/29/2024 12:09 PM EST us Generic External Data Provider LAB BLOOD ORDERAB LES Final Result [facility] [address] [place] [phone] [phone] documented in this encounter Visit Diagnoses Not on filedocumented in this encounter Additional Health Concerns Assessment Noted Time PHQ-9 Depression Total Score: 4 12/09/19 24 10:18 AM EDT documented as of this encounter Care Teams Tire Balancer Relationship Specialty Start Date End Date Farhana Horn DO [address] [place] [phone] PCP - General Family Medicine 09/09/18 documented as of this encounter
--- OUTSIDE RECORDS SUMMARY | 2024-11-02 16:48 | XMS_ITS | Encounter Summary ---
Author Organization [facility] Address [address] [place] [address] [address] [place] [address] Care Team Providers Care Automation Operator Name Role Phone Farhana Horn DO Primary Care Provider Encounter Details Date Type Department Care Team (Latest Contact Info) Description 10/16/2019 Abstract [facility] CONVERSIONS Dental, Provider, DDS Social History Tobacco [...] 11/04/2024 10:00 AM EST Office Visit [facility] MEDICINE [address] [place] [address] Farhana Horn DO [address] [place] [address] documented as of this encounter Visit Diagnoses Not on filedocumented in this encounter Care Teams Automation Operator Relationship Specialty Start Date End Date Farhana Horn DO [address] [place] [address] PCP - General Family Medicine 09/09/18 documented as of this encounter
--- OUTSIDE RECORDS SUMMARY | 2024-11-02 16:48 | XMS_ITS | Encounter Summary ---
Author Organization [facility] Address [address] [place] [address] [address], [place] [address] Care Team Providers Care Ham Rolling Machine Operator Name Role Phone Farhana Horn DO Primary Care Provider [phone] Encounter Details Date Type Department Care Team (Late st Contact Info) Description 09/12/2022 Orders Only [facility] [address] [place] [phone] Farhana Horn DO [address] [place] [address] Social History Tobacco Use Types Packs/Day Years [...] Description 11/04/2024 10:00 AM EST Office Visit [facility] [address] [place] [phone] Farhana Horn DO [address] [place] [address] documented as of this encounter Visit Diagnoses Not on filedocumented in this encounter Care Teams Ham Rolling Machine Operator Relationship Specialty Start Date End Date Farhana Horn DO [address] [place] [phone] PCP - General Family Medicine 09/09/18 documented as of this encounter
== END 2024-11-02 15:28 | disposition home or self-care (01) ==
PROVIDERS: PCP Family Medicine; Visit Provider Nurse Practitioner Family
DX: K21.9 Gastro-esophageal reflux disease without esophagitis (principal); K58.1 Irritable bowel syndrome with constipation; K57.90 Diverticulosis of intestine, part unspecified, without perforation or abscess without bleeding; K59.04 Chronic idiopathic constipation; R13.12 Dysphagia, oropharyngeal phase; R10.13 Epigastric pain
CPT/HCPCS: 99214

== ENCOUNTER → 2024-11-02 14:34 | Outpatient (BNVA) | payer MEDICAID, SELFPAY | PROVIDERS: PCP Family Medicine; Visit Provider Nurse Practitioner Family | DX: K21.9 Gastro-esophageal reflux disease without esophagitis (principal); K58.1 Irritable bowel syndrome with constipation; K57.90 Diverticulosis of intestine, part unspecified, without perforation or abscess without bleeding; K59.04 Chronic idiopathic constipation; R13.12 Dysphagia, oropharyngeal phase; R10.13 Epigastric pain | CPT/HCPCS: 99212 ==

== ENCOUNTER 2024-11-04 11:10 | Emergency (ER) | payer MEDICAID, SELFPAY ==
--- NOTE | ~2024-11-04 | CT_ITS ---
EXAMINATION: CT ANGIOGRAM CHEST CLINICAL INFORMATION: Hemoptysis. COMPARISON: None available. TECHNIQUE: Multiple axial images were obtained through the chest after the administration of 50 mL of Omnipaque 350 intravenous contrast. Extensive vascular post-processing including two-dimensional and three-dimensional reformatted images were created and reviewed on an independent workstation. SmartPrep technique. This CT examination was performed using dose optimization techniques as appropriate, variously including the following: *Automated exposure control *Adjustment of mA and/or kV according to patient size (this includes techniques or standardized protocols for targeted exams where dose is matched to indication/reason for exam; i.e. extremities or head) *Use of iterative reconstruction technique DLP: 278 mGy centimeter. FINDINGS: No intraluminal filling defects within the main pulmonary artery or its main branches. No gross aneurysm or dissection, thoracic aorta. Calcified plaque in the aortic arch wall near the ligamentous arteriosus region. Pulmonary patchy groundglass involving mostly the left lower lung lobe. There is a 6 mm noncalcified pulmonary nodule in the posterior left lower lung lobe. No bronchiectasis. No honeycombing. Respiratory airways patent. No pleural effusion. No pneumothorax. No pericardial effusion. No gross lymphadenopathy, mediastinum or perihilar. Multilevel spondylosis without acute fracture or gross listhesis. Pectus carinatum. CT/CT angio chest PE protocol IMPRESSION: Concerning acute airspace disease, left lung. 6 mm noncalcified pulmonary nodule, left lower lung lobe. Differential considerations include inflammatory versus infectious versus neoplasm. Fleischner guidelines were followed. Electronically signed by: Yariel Brooks MD 11/04/2024 01:34 PM SUMAN
--- NOTE | ~2024-11-04 | CT_ITS ---
EXAMINATION: CT ABDOMEN AND PELVIS WITH CONTRAST CLINICAL INFORMATION: Abdominal pain. COMPARISON: October 29, 2024 suggesting mild colitis, left hemicolon. TECHNIQUE: Multidetector volumetric images were obtained from the superior aspect of the liver through the pubic symphysis following administration 85 mL of Omnipaque 350 intravenous contrast. Sagittal and coronal reformatted images were obtained on the technologist's workstation. Oral contrast: No This CT examination was performed using dose optimization techniques as appropriate, variously including the following: *Automated exposure control *Adjustment of mA and/or kV according to patient size (this includes techniques or standardized protocols for targeted exams where dose is matched to indication/reason for exam; i.e. extremities or head) *Use of iterative reconstruction technique DLP: 462 mGy centimeter. FINDINGS: LUNG BASES: Pulmonary patchy groundglass. LIVER, GALLBLADDER, AND BILIARY TREE: Liver measures 16 cm. No focal lesion. Portal veins, hepatic veins and intrahepatic portions of the IVC are patent. Status post cholecystectomy. Common bile duct measures 7 mm. There is a focal 1 mm low density probably fatty density in the distal common bile duct.. PANCREAS: No focal lesion. No peripancreatic fluid collections. No main pancreatic ductal dilatation. Reduced volume of the pancreatic parenchyma. SPLEEN: 7 cm. No focal lesion. ADRENAL GLANDS: There is a 1.1 cm nodule in the left adrenal gland. No nodular lesions in the right adrenal gland. KIDNEYS AND URETERS: No gross renal mass. No hydronephrosis. Cortical defect in the posterior midportion of the left kidney. Subcentimeter hypodensities in the corticomedullary junction of the left kidney. Questionable 1 mm calcification in the anterior midportion right kidney. BLADDER: Fluid-filled. GASTROINTESTINAL TRACT: Numerous diverticula in the left hemicolon. Abundant stool gas and fluid in nondilated large intestine. Appendix is normal. No intestinal obstruction pattern. No pneumatosis intestinalis. No peripheral enhancing fluid collection. ABDOMINAL WALL: There is distal abdominal rectus muscles. There is a questionable vascular clips in the deep portion of the umbilicus. LYMPH NODES: Nonspecific prominent, mesenteric lymph nodes. VASCULAR: No aneurysm or dissection, abdominal aorta. PELVIC VISCERA: No gross masses in the uterus or the right adnexa. OSSEOUS STRUCTURES: Multilevel thoracolumbar spondylosis. Osteopenia versus osteoporosis. No acute fracture or dislocation in either hip. Bony pelvis is intact. CT/CT abdomen pelvis w IV con IMPRESSION: Diverticular disease, left hemicolon. Questionable cholesterol choledocholithiasis with mild prominent common bile duct. Probable nonobstructing calculi, right kidney. Fleischner guidelines were followed. Electronically signed by: Yariel Brooks MD 11/04/2024 01:28 PM EST
[2024-11-04 11:19] VITALS: BP 138/84; BP 95/64; PULSE 68; PULSE 71; RESP 18; O2SAT 93; BMI 30.9
--- NOTE | 2024-11-04 11:37 | PC.NURSE ---
Pt comes to ED via EMS for c/o ongoing abd pain 06/18 with new onset cough. Pt was being seen at her PCP this AM after being d/c'd [facility] last week with new Dx Colitis. she was transported here for further eval. Pt reports she was d/c'd with Abx in which she has taken however her abd pain as not subsided. She now reports a new dry cough with noted bloody spit up. A&Ox3, VSS, SSO Dr. Denton to bedside for eval. Awaiting orders.
--- NOTE | 2024-11-04 12:01 | ED.ABDPAIN ---
HPI - Abdominal Pain General Chief Complaint: Abdominal Pain Stated Complaint: COUGH,UPPER ABD PAIN,RECENT D/C,FROM URGENT CARE Time Seen by Provider: 11/04/24 11:24 Source: patient Mode of arrival: EMS Limitations: no limitations History of Present Illness HPI narrative: this is a 54 years old the patient was referred to us from the urgent care because of abdominal pain. She was not hospitalized recently of colitis she was discharged on antibiotic. She continued to have abdominal pain she reports also cough congestion she said that she coughed up blood as well MD elicited complaint: abdominal pain Pertinent past history: other (colitis) Onset (ago): day(s) (3) Pain Consistency: constant Location: none Quality: cramping Radiation: none Exacerbating factors: nothing Related Data Home Medications ?Medication ?Instructions ?Recorded ?Confirmed amitriptyline 150 mg tablet 150 mg PO BEDTIME 09/21/20 02/26/23 propranolol 120 mg capsule,24 120 mg PO DAILY 03/01/21 02/26/23 hr,extended release ergocalciferol (vitamin D2) 1,250 1,250 mcg PO QWEEK 10/02/21 02/26/23 mcg (50,000 unit) capsule (Vitamin D2) loratadine 10 mg tablet 10 mg PO DAILY 11/21/21 02/26/23 atorvastatin 20 mg tablet 20 mg PO DAILY 04/01/24 cholecalciferol (vitamin D3) 50 50 mcg PO DAILY 04/01/24 mcg (2,000 unit) capsule (Vitamin D3) magnesium oxide 400 mg (241.3 mg 400 mg PO DAILY 07/08/24 magnesium) tablet dulaglutide 0.75 mg/0.5 mL mg subcut QWEEK 10/21/24 subcutaneous pen injector (Trulicity) gabapentin 300 mg capsule mg PO 10/21/24 pyridoxine (vitamin B6) 50 mg 50 mg PO DAILY 11/02/24 tablet Previous Rx's ?Medication ?Instructions ?Recorded cetirizine 10 mg tablet 10 mg PO DAILY #30 tabs 10/10/21 ondansetron HCl 4 mg tablet 4 mg PO Q8H PRN for 04/26/23 nausea/vomiting #20 tabs Saccharomyces boulardii 250 mg 250 mg PO QAM #90 caps 04/01/24 capsule (Probiotic (S.boulardii)) calcium polycarbophil 625 mg 625 mg PO BID #180 tabs 04/01/24 tablet (Fiber-Lax) esomeprazole magnesium 40 mg 40 mg PO DAILY #90 caps 10/21/24 capsule,delayed release (Nexium) sucralfate 1 gram tablet 1 g PO BEDTIME #90 tabs 10/21/24 levofloxacin 750 mg tablet 750 mg PO DAILY #7 tabs 10/30/24 metronidazole 500 mg tablet 500 mg PO Q8H #21 tabs 10/30/24 bisacodyl 5 mg tablet,delayed 10 mg (2 x 5 mg) PO BEDTIME #180 11/02/24 release (Dulcolax (bisacodyl)) tabs methylcellulose (laxative) 500 mg 500 mg PO DAILY #90 tabs 11/02/24 tablet (Citrucel) codeine 10 mg-guaifenesin 100 mg/5 5 ml PO Q6H PRN cough 7 days #120 11/04/24 mL oral liquid (Guaifenesin AC) mL doxycycline monohydrate 100 mg 100 mg PO BID #14 caps 11/04/24 capsule (Monodox) Allergies Allergy/AdvReac Type Severity Reaction Status Date / Time Penicillins [PENICILLINS] Allergy Severe RASH Verified 11/04/24 11:27 Review of Systems Constitutional: Reports no additional constitutional complaints Cardiovascular: Reports no additional cardiovascular complaints Reports system reviewed and no additional complaints, except as documented [facility] Past Medical History [facility] Narrative: colitis Medical History Diverticulosis Renal calculi Gastric varices Migraine headache Depression GERD (gastroesophageal reflux disease) Diabetes mellitus Adrenal nodule IBS (irritable bowel syndrome) HTN (hypertension) Hyperlipemia Surgical History History of surgery History of esophagogastroduodenoscopy (EGD) Hx of colonoscopy Hx of tubal ligation Hx of discectomy Family History Family History Father Hx of type 1 diabetes mellitus History of epilepsy Mother Family history of high blood pressure Hx of cancer of uterus Social History Social History Household Members Other:: daughter Housing: House Alcohol intake: never Patient Tobacco Use Status: Never used Tobacco Smoked in Last 30 Days: No Use of substances other than those prescribed or required for medical reasons: No Advance Directives: No Advance Directives Information Provided: Yes Do you have a plan to hurt others: No Plan Patient : No Current occupational status: employed Current occupation: [employer]- right handed Sexual orientation: Straight/Heterosexual Gender identity: Female Physical Exam ED Vital Signs: Vital Signs - 24 hr 11/04/24 11:19 11/04/24 12:15 Pulse Rate 71 Respiratory Rate 18 18 Blood Pressure 95/64 Pulse Oximetry 93 Oxygen Delivery Method Room Air BMI result Body Mass Index 30.9 no acute distress Const General: cooperative Orientation/consciousness: patient oriented x3 Limitations: no limitations HENMT Head: Yes normal to inspection Ears: hearing grossly normal bilaterally General nose exam: Normal external nose present Face and sinus: Yes normal facial exam Throat: Yes posterior oropharynx normal Neck Neck: Yes normal visual inspection and Yes full ROM Chest Chest palpation & inspection: normal inspection of the chest Resp Effort & Inspection: normal respiratory effort Auscultation: clear to auscultation bilaterally Cardio Jugular venous distension: no JVD Rate: regular rate Rhythm: regular rhythm GI Inspection: Yes normal to inspection Palpation (GI): Soft to palpation and Tenderness to palpation present (GI) ( tenderness in the lower abdomen) General: Yes no CVA tenderness Back/Spine/Pelvis Back: no CVA tenderness Neuro General: patient oriented x3 Course Reevaluation(s) Reevaluation #1: patient remain stable workup has been completed she is positive for the flu but also she has a concerning acute airspace disease in the left lung so I think it is reasonable to discharge her on Augmentin, she asking me for cough medicine as well, patient is very comfortable with the plan of care daughter as well Time: 16:08 Medical Decision Making Medical Decision Making MDM Narrative: patient was sent here by the primary care physician because of persistent abdominal pain cough congestion and an episode of hemoptysis it is reasonable to obtain blood work and anand Differential Diagnosis Differential Diagnoses: The differential diagnosis associated with the presentation includes colitis diverticulitis /pneumonia Admission/Observation Consideration of admission/observation: Escalation of care including admission/observation considered Lab Data MDM Lab Attestation statement: I reviewed the patient's lab results. 11/04/24 12:05 11/04/24 12:05 Labs: Lab Results 11/04/24 11/04/24 Range/Units 12:05 14:59 WBC 5.0 (4.8-10.8) X10*3/uL RBC 4.56 (4.20-5.50) X10*6/uL Hgb 12.7 (12.0-16.0) g/dl Hct 37.6 (37.0-47.0) % MCV 82.5 (80.0-98.0) fL MCH 27.9 (27.0-33.0) pg MCHC 33.8 (31.0-35.0) g/dl RDW 13.7 (11.0-16.0) % Plt Count 225 D (160-400) X10*3/uL MPV 8.4 L (9.4-12.3) fL Immature Gran % (Auto) 0.2 (0.0-0.4) % Neut % (Auto) 39.9 L (45-73) % Lymph % (Auto) 49.9 H (20-40) % Hayes % (Auto) 9.8 (2-11) % Eos % (Auto) 0.0 (0-4) % Baso % (Auto) 0.2 (0-2) % Lymph # (Auto) 2.5 (1.2-4.9) X10*3/uL Hayes # (Auto) 0.5 (0.1-1.2) X10*3/uL Eos # (Auto) 0.0 (0.0-0.4) X10*3/uL Baso # (Auto) 0.0 (0.0-0.2) X10*3/uL Abs Immat Gran (auto) 0.01 (0.00-0.03) X10*3/uL Absolute Neuts (auto) 2.0 (2.0-8.3) x10*3/uL Absolute Nucleated RBC 0.000 (0.0-0.012) X10*3/uL Nucleated RBC % (auto) 0.0 (0.0-0.2) /100WBC Sodium 141 (135-145) mmol/L Potassium 3.6 (3.3-5.1) mmol/L Chloride 107 (96-108) mmol/L Carbon Dioxide 28 (22-29) mmol/L Anion Gap 10 L (12-20) BUN 14 (9-16) mg/dL Creatinine 0.89 (0.5-1.4) mg/dL Estim Creat Clear Calc 64.9 Estimated GFR > 60 Random Glucose 96 (60-115) mg/dL Calcium 8.7 D (8.4-10.2) mg/dL Total Bilirubin 0.1 (0.0-1.0) mg/dL AST 76 H (5-31) U/L ALT 85 H (0-31) U/L Alkaline Phosphatase 100 (39-117) U/L Troponin I High Sens 2.8 (<3.5-17.0) ng/L Total Protein 7.1 (6.5-8.0) g/dL Albumin 3.7 (3.5-5.0) g/dL Lipase 35 (8-78) U/L Influenza Type A (PCR) POSITIVE A (Negative) Influenza Type B (PCR) NEGATIVE (Negative) RSV RNA Qual (PCR) NEGATIVE (Negative) SARS-CoV-2 RNA (RT-PCR) NEGATIVE (Negative) Independent Interpretation I performed an independent interpretation of an: CT Scan Radiology Impression Discussion of test interpretation with radiology: I have reviewed the radiologist's reading. Radiologist Impression: Calcified plaque in the aortic arch wall near the ligamentous arteriosus region. Pulmonary patchy groundglass involving mostly the left lower lung lobe. There is a 6 mm noncalcified pulmonary nodule in the posterior left lower lung lobe. No bronchiectasis. No honeycombing. Respiratory airways patent. No pleural effusion. No pneumothorax. No pericardial effusion. No gross lymphadenopathy, mediastinum or perihilar. Multilevel spondylosis without acute fracture or gross listhesis. Pectus carinatum. CT/CT angio chest PE protocol IMPRESSION: Concerning acute airspace disease, left lung. 6 mm noncalcified pulmonary nodule, left lower lung lobe. Differential considerations include inflammatory versus infectious versus neoplasm. Fleischner guidelines were followed. Electronically signed by: Yariel Brooks MD 11/04/2024 01:34 PM EST Dictated By: Yariel Buchanan MD Signed By: <Electronically signed by Yariel Garcia MD in OV> 11/04/24 1334 DD/ 1316 Independent Historian daughter External Record Review External record reviewed: Inpatient record Prescription Management I considered prescription management with: Antibiotic Medications Administered Discontinued Medications Generic Name Dose Route Start Last Admin Trade Name Freq PRN Reason Stop Dose Admin Sodium Chloride 1,000 mls @ 999 mls/hr 11/04/24 11:45 11/04/24 15:40 Ns IVCONT 11/04/24 12:45 Infused .Q1H1M MIRYAM Infusion Sodium Chloride 1,000 mls @ 999 mls/hr 11/04/24 11:45 11/04/24 16:01 Ns IVCONT 11/04/24 12:45 Infused .Q1H1M MIRYAM Infusion Iohexol 100 ml 11/04/24 13:03 11/04/24 13:03 Iohexol 350 Mg/Ml 100 Ml Infus..Btl IV 11/04/24 13:04 85 ml ONCE ONE Administration Morphine Sulfate 4 mg 11/04/24 11:44 11/04/24 12:15 Morphine Sulfate 4 Mg/Ml Cartridge IVPUSH 11/04/24 11:45 4 mg ONCE ONE Administration Protocol Ondansetron HCl 4 mg 11/04/24 11:44 11/04/24 12:15 Ondansetron Hcl 4 Mg/2 Ml Vial IVPUSH 11/04/24 11:45 4 mg ONCE ONE Administration Discharge Plan Discharge Clinical Impression: Influenza Pneumonia Qualifiers: Pneumonia type: due to unspecified organism Laterality: left Lung location: lower lobe of lung Qualified Code(s): J18.9 - Pneumonia, unspecified organism Patient Disposition: Home, Self-Care Instructions: Influenza (DC), Community Acquired Pneumonia (DC) Additional Instructions: you tested positive for influenza, on the CT scan of the chest there is a possible beginning of pneumonia in the left lung, we sent a prescription for doxycycline antibiotic to your pharmacy and a cough medicine as well, please discontinue the metronidazole and the levofloxacin Prescriptions: New codeine-guaifenesin [Guaifenesin AC] 10-100 mg/5 mL liquid 5 ml PO Q6H PRN (Reason: cough) 7 Days Qty: 120 0RF doxycycline monohydrate [Monodox] 100 mg capsule 100 mg PO BID Qty: 14 0RF No Action levofloxacin 750 mg tablet 750 mg PO DAILY Qty: 7 0RF metronidazole 500 mg tablet 500 mg PO Q8H Qty: 21 0RF amitriptyline 150 mg tablet 150 mg PO BEDTIME propranolol 120 mg capsule,extended release 24 hr 120 mg PO DAILY cetirizine 10 mg tablet 10 mg PO DAILY Qty: 30 2RF ergocalciferol (vitamin D2) [Vitamin D2] 1,250 mcg (50,000 unit) capsule 1,250 mcg PO QWEEK loratadine 10 mg tablet 10 mg PO DAILY magnesium oxide 400 mg (241.3 mg magnesium) tablet 400 mg PO DAILY pyridoxine (vitamin B6) 50 mg tablet 50 mg PO DAILY Citrucel 500 mg tablet 500 mg PO DAILY Qty: 90 2RF Rx Instructions: take it with full glass of water bisacodyl [Dulcolax (bisacodyl)] 5 mg tablet,delayed release (DR/EC) 10 mg PO BEDTIME Qty: 180 4RF ondansetron HCl 4 mg tablet 4 mg PO Q8H PRN (Reason: for nausea/vomiting) Qty: 20 1RF cholecalciferol (vitamin D3) [Vitamin D3] 50 mcg (2,000 unit) capsule 50 mcg PO DAILY atorvastatin 20 mg tablet 20 mg PO DAILY calcium polycarbophil [Fiber-Lax] 625 mg tablet 625 mg PO BID Qty: 180 2RF Saccharomyces boulardii [Probiotic (S.boulardii)] 250 mg capsule 250 mg PO QAM Qty: 90 2RF Trulicity 0.75 mg/0.5 mL pen injector subcut QWEEK gabapentin 300 mg capsule PO esomeprazole magnesium [Nexium] 40 mg capsule,delayed release(DR/EC) 40 mg PO DAILY Qty: 90 3RF sucralfate 1 gram tablet 1 g PO BEDTIME Qty: 90 3RF Referrals: Farhana Horn DO [Primary Care Provider] - 3 days Print Language: Panamanian
[2024-11-04 12:08] LABS: MANUAL DIFF FLAG NO
[2024-11-04 12:11] LABS: Basophils Percent Auto 0.2 % (0-2); Hematocrit 37.6 % (37.0-47.0); Hemoglobin 12.7 g/dl (12.0-16.0); Imm Gran Abs Auto 0.01 X10*3/uL (0.00-0.03); Imm Gran Pct Auto 0.2 % (0.0-0.4); Lymphocytes Absolute Auto 2.5 X10*3/uL (1.2-4.9); Lymphocytes Percent Auto 49.9 % (20-40); Mean Corpuscular HGB Conc 33.8 g/dl (31.0-35.0); Mean Corpuscular Hemoglobin 27.9 pg (27.0-33.0); Mean Corpuscular Volume 82.5 fL (80.0-98.0); Mean Platelet Volume 8.4 fL (9.4-12.3); Monocytes Absolute Auto 0.5 X10*3/uL (0.1-1.2); Monocytes Percent Auto 9.8 % (2-11); Neutrophils Percent Auto 39.9 % (45-73); Platelet Count 225 X10*3/uL (160-400); Red Blood Count 4.56 X10*6/uL (4.20-5.50); Red Cell Distribution Width 13.7 % (11.0-16.0)
[2024-11-04 12:15] VITALS: RESP 18
[2024-11-04] MEDS: Morphine Sulfate 4 MG/ML CARTRIDGE IVPUSH (12:15)
[2024-11-04] MEDS: ondansetron HCL 4 MG/2 ML VIAL IVPUSH (12:15)
[2024-11-04] MEDS: 0.9 % Sodium Chloride 1,000 ML 999 ML IVCONT ×2 (12:16)
[2024-11-04 12:35] LABS: Albumin Level 3.7 g/dL (3.5-5.0); Alkaline Phosphatase 100 U/L (39-117); Anion Gap 10 (12-20); Aspartate Amino Transferase 76 U/L (5-31); Bilirubin Total 0.1 mg/dL (0.0-1.0); Blood Urea Nitrogen 14 mg/dL (9-16); Calcium 8.7 mg/dL (8.4-10.2); Carbon Dioxide 28 mmol/L (22-29); Chloride 107 mmol/L (96-108); Creatinine Clr Calc Pharmacy 64.9; Estimated Glomerular Filt Rate > 60; Glucose Random 96 mg/dL (60-115); Lipase 35 U/L (8-78); Potassium 3.6 mmol/L (3.3-5.1); Sodium 141 mmol/L (135-145); Total Protein 7.1 g/dL (6.5-8.0)
[2024-11-04 12:36] LABS: Alanine Aminotransferase 85 U/L (0-31)
[2024-11-04 12:56] LABS: Troponin-I High Sensitivity 2.8 ng/L (<3.5-17.0)
[2024-11-04] MEDS: iohexoL 350 MG/ML 100 ML INFUS..BTL IV (13:03)
--- OUTSIDE RECORDS SUMMARY | 2024-11-04 14:46 | XMS_ITS | Encounter Summary ---
Author Organization [employer] Address [address] [facility] [address] [place] [address] Care Team Providers Care Felled Seam Operator Name Role Phone KoryFarhana Primary Care Provider + [phone] Encounter Details Date Type Department Care Team (Late st Contact Info) Description 12/20/2023 Orders Only [facility] [address] [place] [address] ProviderPantera MD Social History Tobacco Use Types [...] the past 12 months, has t he [employer], gas, oil or water company threatened to [...] documented as of this encounter Care Teams Felled Seam Operator Relationship Specialty Start Date End Date Farhana Horn DO [address] [place] [address] PCP - General Family Medicine 09/09/18 documented as of this encounter
--- OUTSIDE RECORDS SUMMARY | 2024-11-04 14:47 | XMS_ITS | Encounter Summary ---
Author Organization [employer] Address [address] [place] [address] [address] [place] [address] Care Team Providers Care Stock Chaser Name Role Phone Farhana Horn DO Primary Care Provider + [phone] Reason for Visit * Reason Comments Med Refill Encounter Details Date Type Department Care Team (Late st Contact Info) Description 12/13/2022 Refill [facility] [address] [place], [place] [phone] [facility] [address] [place] [address] Hyperlipidemia, unspecified hyperlipidemia type Social History Tobacco [...] type documented in this encounter Care Teams Stock Chaser Relationship Specialty Start Date End Date Farhana Horn DO [address] [place] [address] PCP - General Family Medicine 09/09/18 documented as of this encounter
--- OUTSIDE RECORDS SUMMARY | 2024-11-04 14:47 | XMS_ITS | Encounter Summary ---
Author Organization [employer] Address [address] [place] [address] [address] [place] [address] Care Team Providers Care Territory Development Manager Name Role Phone LizFarhana key Primary Care Provider [phone] Encounter Details Date Type Department Care Team [...] AM EST 10/27/2024 2:15 PM EST Narrative [facility] - 11/02/2024 3:56 PM EST ----- ------- Name: Tri Bowens ? Age/Sex: 53/F ? : 1970 Unit#: [id number] ?? Attend Dr: Fabio Morin MD ?Re10/27/24 ?Status: DEP REF ? Location: HO.LNP ?Disch: ? ----- ------- SPEC : [id number] ? RECD: 10/27/24 ? STATUS: ??SOUT ? REQ NUM: [id number] ? ANITA: 10/27/24 ? SUBM DR: Fabio Morin MD ? ENTERED: ??10/27/24 ?SP TYPE: Pap Smr ?OTHR DR: Farhana Horn DO ? ORDERED: ??Pap Smear ? Interpretation ?? Satisfactory for evaluation. ?? Negative for intraepithelial lesion or malignancy. ? HPV High Risk: ??Positive ? HPV Genotyping 16: ??Negative ?? HPV Genotyping 18: ??Negative ?Clinical Information LMP:[place] Previous PAP test:2020 Other surgery: Other history: Copies To: ?? Farhana Horn DO ?? [facility] ?? [address] ?? [place] [address] ?? [phone] ?? Fabio Morin MD ?? [facility] ?? [address] ?? [place] [address] ?? [phone] ----- ------- Signed (signature on file) CORI Ortez (ASCP) 11/02/24 1556 ? ----- ------- ? END OF REPORT ? us Generic External Data Provider LAB CYTOLOGY BROOKE GREY Final Result [facility] [address] [place] [phone] * (ABNORMAL) HPV DNA, Low/High Risk (10/27/2024 9:07 AM EST) HPV High Risk Positive(A) Negative [facility] HPV Genotype 16 Negative Negative [facility] HPV Genotype 18 Negative Negative [facility] Comment:HPV testing performe d at [facility] (CLIA#[id number]), [address] [place] [address].Testing for HPV was performed using the [employer]system. The presence of HPV in the female [...] Provider LAB BLOOD ORDERAB LES Final Result [facility] [address] [place] [address] [phone] documented in this encounter Visit Diagnoses Not on filedocumented in this encounter Additional Health Concerns Assessment Noted Time PHQ-9 Depression Total Score: 4 12/09/19 24 10:18 AM EDT documented as of this encounter Care Teams Territory Development Manager Relationship Specialty Start Date End Date Farhana Horn DO [address] [place] [phone] PCP - General Family Medicine 09/09/18 documented as of this encounter
--- OUTSIDE RECORDS SUMMARY | 2024-11-04 14:47 | XMS_ITS | Encounter Summary ---
Author Organization [employer] Address [address] [facility] [address]t [place] [address] Care Team Providers Care Extension Service Specialist Name Role Phone Farhana Horn Primary [...] documented as of this encounter Care Teams Extension Service Specialist Relationship Specialty Start Date End Date Farhana Horn DO [address] [place] [phone] PCP - General Family Medicine 09/09/18 documented as of this encounter
--- OUTSIDE RECORDS SUMMARY | 2024-11-04 14:47 | XMS_ITS | Encounter Summary ---
Author Organization [employer] Address [address] [place] [address] 7[address] [place] [address] Care Team Providers Care Traffic Sign Erection Supervisor Name Role Phone Farhana Horn DO Primary Care Provider + [phone] Reason for Visit * Reason Onset Date Comments Nurse Triage 10/29/2024 Encounter Details Date Type Department Care Team ([facility] st Contact Info) Description 10/29/[address] [facility] [address] [place] [address] Farhana Horn DO [address] [place] [address] Nurse Triage Social History Tobacco Use Types [...] 10:17 AM EST Sent to team for [facility] status check PRN. * Telephone Encounter - Chanel Colindres RN - 10/29/2024 10:11 AM EST No radar signal processing engineer needed as this bid writer speaks Egyptian. Call returned to Tri Bowens to triage [...] hours. Pt advised of disposition, agrees to [facility] now for exam. Protocol Used: Vomiting [...] become worse * Telephone Encounter - Skip Wilsonyes - 10/29/2024 9:56 AM EST Symptoms: Diarrhea, [...] documented as of this encounter Care Teams Traffic Sign Erection Supervisor Relationship Specialty Start Date End Date Farhana Horn DO [address] [place] [address] PCP - General Family Medicine 09/09/18 documented as of this encounter
--- OUTSIDE RECORDS SUMMARY | 2024-11-04 14:47 | XMS_ITS | Clinical Summary ---
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 -DEXA with osteopenia JUL 2023 -STI/HIV screen [...] nightly -s/p optho eval Apr 2023 at [facility] -foot exam next visit* Allergic rhinitis [...] -f/u with neurology as scheduled -advised contact [facility] if no improvement Irritable bowel syndrome [...] Encounters Date Type Department Care Team Description 11/04/2024 10:00 AM EST Office Visit [facility] [address] [place] [phone] Farhana Horn DO Generalized abdominal pain (Primary Dx); Cough with hemoptysis; Generalized weakness; Type 2 diabetes mellitus without complication, without long-term current use of insulin ([facility]) 11/04/2024 Orders Only [facility] External Provider, [facility] 11/04/2024 Travel 10/29/2024 Orders Only GENERIC EXTERNAL DATA DEPARTMENT Provider, Generic External Data 10/29/2024 Telephone [facility] [address] [place] [address] Farhana Horn DO Nurse Triage 10/29/[address] [address] Farhana Horn DO Appointment Request 10/27/2024 Orders Only GENERIC EXTERNAL DATA DEPARTMENT Provider, Generic External Data 10/23/2024 Refill [facility] [address] [place] [address] Farhana Horn DO Seasonal allergic rhinitis, unspecified trigger 10/22/2024 2:00 PM EST Office Visit [facility] [address] [place] [address] Steven, Danette, OD Diabetes type 2, no ocular involvement ([facility]) (Primary Dx); Vitelliform lesion of macula; Headache, unspecified headache type; Presbyopia 10/22/2024 Travel 10/21/2024 Travel 10/15/2024 Telephone [facility] [address] [place] [address] Sudha Doss [place] Recall Letter (Recall Letter sent 10/15/24.) 09/21/2024 Refill [facility] [address] [place] [address] Farhana Horn DO 09/08/2024 Refill [facility] [address] [place] [address] Farhana Horn DO 09/04/2024 Orders Only GENERIC [...] housing situation today? I have magalie miguel 11/04/[address] you li ve. Do you have problems with any of the following? None of the above 11/04/2024 Food Insecurity Answer Date Recorded Within the past 12 months, y ou worried that your food would run out before you got money to buy more: Never True 11/04/2024 Within the past 12 months,th e food you bought just didn't last and you didn't have enough money to get more: Never True Transportation Answer Date Recorded In the past 12 months, has l ack of transportation kept you from medical appts, meetings, work or from getting things needed for daily living? No 11/04/2024 Utilities Answer Date Recorded In the past 12 months, has t he electric, gas, oil or water company threatened to shut off services in your home? No 11/04/2024 Depression Answer Date Recorded Patient Health Questionnaire-2 Score 2 12/09/2023 Internet Access Answer Date Recorded Internet Access Q1 Yes 11/04/2024 Internet Access Q2 Not on file 11/04/2024 Comments Unknown Sex and Gender Information Value Date Recorded Sex Assigned at Female 07/09/2022 10:14 AM EDT Legal Sex Female 10:14 AM EDT Gender Identity Female 07/09/2022 10:14 AM EDT Sexual Orientation Straight 07/09/2022 10 :14 AM EDT Last Filed Vital Signs Vital Sign Reading Time Taken Comments Blood Pressure 119/77 11/04/2024 10:08 AM EST Pulse 72 04/14/2024 11:12 AM EDT Temperature 36.1 ??C (96.9 ??F) 11/04/2024 10:[address] Respiratory Rate 21 11/04/2024 10:08 AM EST Oxygen Saturation 98% 12/09/2023 10:17 AM EDT Inhaled Oxygen Concentration - - Weight 71.7 kg (158 lb 2 oz) 11/04/2024 10:08 AM EST Height 152.4 cm (5') 11/04/2024 10:08 AM EST Body Mass Index 30.88 11/04/2024 10:08 AM EST Plan of Treatment Health Maintenance Due Date Last Done Comments CT Colonography 1968 FIT DNA/Cologuard 1968 FIT 1968 FOBT 1968 Sigmoidoscopy 1968 Diabetes: Foot Exam 1978 Hepatitis B Vaccines (1 of 3 - 19+ 3-dose series) 1987 11/03/2008, 03/09/2008, 12/30/2007 Colonoscopy 01/28/2024 01/27/2019 Colorectal Cancer Screening 01/28/2024 COVID-19 Vaccine ( season) 2024 07/26/2023, 07/06/2022, 09/12/2021, Additional history exists Influenza Vaccine (#1) 2024 , 07/03/2022, 07/10/2021, Additional history exists Diabetes: Urine Protein Screening 07/26/2024 07/26/2023, 01/25/2021 Lipid Panel 07/26/2024 07/26/2023, 06/11, 01/25/2021 Depression Screening 12/08/2024 12/09/2023, 12/09/19 Diabetes: Hemoglobin A1C 05/04/2025 025, 04/14/2024, 12/09/2023, Additional history exists Mammogram 09/23/2025 09/23/2024, 10/2023, 09/07/2022, Additional history exists Alcohol/Substance Use Screening 11/04/2025 11/04/2024 SDOH Screening 11/04/2025 11/04/2024 Tobacco Screening 11/04/2025 11/04/2024 Eye Exam 10/22/2026 10/22/2024, 10/10, 10/22/2024, Additional history exists Pap Smear 10/27/2027 10/27/2024 Cervical Cancer Screening 10/27/2029 HPV/Cotest 10/27/2029 10/27/2024, 07/11, 08/01/2020, Additional history exists DTaP/Tdap/Td Vaccines (4 - [...] Procedure Name Priority Date/Time Associated Diagnosis Comments CTA CHEST PE PROTOCAL Routine 11/04/2024 1:[address] ABDOMEN PELVIS W CONTRAST Routine 11/04/2024 11:43 AM EST POCT GLUCOSE Routine 11/04/2024 10:14 AM EST Type 2 diabetes mellitus without complication, without long-term current use of insulin ([facility]/HCC) POCT GLYCATED HEMOGLOBIN, TOTAL Routine 11/04/2024 10:14 AM EST Type 2 diabetes mellitus without complication, without long-term current use of insulin (CMS/HCC) CT ABDOMEN PELVIS W CONTRAST Routine 10/29/2024 [...] WHOLE BLOOD Routine 09/04/2024 10:10 AM EST ALBUMIN, RANDOM URINE W/CREATININE Routine 07/26/2023 12:26 [...] Recently Relevant to Health Maintenance Results * CTA Chest PE Protocal (11/04/2024 1:16 PM EST) Anatomical Region Laterality Modality Body, Chest Computed Tomogra phy 11/04/2024 1:16 PM EST Narrative 11/04/2024 1:38 PM EST ? [facility] ?[address] ?[place] [address] ? CT Scan Report ? Signed ? Patient: Kwan,Tri ?MR#: [id number] ?? 63 ? : 1970 ?Acct:[id number] ? Age/Sex: 54 / F ?ADM Date: 11/04/24 ? Loc: HO.ED ? Attending Dr: ? Ordering Physician: Brenden Denton MD ?? Date of Service: 02/26/25 ?? Procedure(s): CT angio chest PE protocol ?? Accession Number(s): [id number] ? cc: Brenden Denton MD; Farhana Horn DO ? Report Number: ?? [id number]: Total DLP = ??278.00 mGy-cm ?? EXAMINATION: ?? CT ANGIOGRAM CHEST ? CLINICAL INFORMATION: ?? Hemoptysis. ? COMPARISON: ?? None available. ? TECHNIQUE: ?? Multiple axial images were obtained through the chest after the ?? administration of 50 mL of Omnipaque 350 intravenous contrast. ?? Extensive vascular post-processing including two-dimensional and ?? three-dimensional reformatted images were created and reviewed on an ?? independent workstation. ?? SmartPrep technique. ? This CT examination was performed using dose optimization techniques as ?? appropriate, variously including the following: ?? *Automated exposure control ?? *Adjustment of mA and/or kV according to patient size (this includes ?? techniques or standardized protocols for targeted exams where dose is ?? matched to indication/reason for exam; i.e. extremities or head) ?? *Use of iterative reconstruction technique ?? DLP: 278 mGy centimeter. ? FINDINGS: ?? No intraluminal filling defects within the main pulmonary artery or its ?? main branches. ?? No gross aneurysm or dissection, thoracic aorta. Calcified plaque in ?? the aortic arch wall near the ligamentous arteriosus region. ?? Pulmonary patchy groundglass involving mostly the left lower lung lobe. ?? There is a 6 mm noncalcified pulmonary nodule in the posterior left ?? lower lung lobe. ?? No bronchiectasis. ?? No honeycombing. ?? Respiratory airways patent. ?? No pleural effusion. No pneumothorax. ?? No pericardial effusion. ?? No gross lymphadenopathy, mediastinum or perihilar. ?? Multilevel spondylosis without acute fracture or gross listhesis. ?? Pectus carinatum. ? CT/CT angio chest PE protocol ?? IMPRESSION: ?? Concerning acute airspace disease, left lung. ?? 6 mm noncalcified pulmonary nodule, left lower lung lobe. Differential ?? considerations include inflammatory versus infectious versus neoplasm. ? Fleischner guidelines were followed. ? Electronically signed by: ??Yariel Brooks MD ??11/04/2024 01:34 PM ?? EST RP ? Dictated By: ?Yariel Buchanan MD ? Signed By: ?<Electronically signed by Yariel Garcia MD in OV> ? 11/04/24 1334 ? DD/ 1316 ? TD/TT: 11/04/24 1316 ? [employer] Supervisor: ? Procedure Note Donotuseinterpreter, Image - 11/04/[address] [address] [address] Scan Report Signed Patient: Wang Bowens#: [id number] 63 : 1970Acct:[id number] Age/Sex: 54 / FADM Date: 11/04/24 Loc: HO.ED Attending Dr: Ordering Physician: Brenden Denton MD Date of Service: 11/04/24 Procedure(s): CT angio chest PE protocol Accession Number(s): [id number] cc: Brenden Denton MD; Farhana Horn DO Report Number: [id number]: Total DLP = 278.00 mGy-cm EXAMINATION: CT ANGIOGRAM CHEST CLINICAL INFORMATION: Hemoptysis. COMPARISON: None available. TECHNIQUE: Multiple axial images were obtained through the chest after the administration of 50 mL of Omnipaque 350 intravenous contrast. Extensive vascular post-processing including two-dimensional and three-dimensional reformatted images were created and reviewed on an independent workstation. SmartPrep technique. This CT examination was performed using dose optimization techniques as appropriate, variously including the following: *Automated exposure control *Adjustment of mA and/or kV according to patient size (this includes techniques or standardized protocols for targeted exams where dose is matched to indication/reason for exam; i.e. extremities or head) *Use of iterative reconstruction technique DLP: 278 mGy centimeter. FINDINGS: No intraluminal filling defects within the main pulmonary artery or its main branches. No gross aneurysm or dissection, thoracic aorta. Calcified plaque in the aortic arch wall near the ligamentous arteriosus region. Pulmonary patchy groundglass involving mostly the left lower lung lobe. There is a 6 mm noncalcified pulmonary nodule in the posterior left lower lung lobe. No bronchiectasis. No honeycombing. Respiratory airways patent. No pleural effusion. No pneumothorax. No pericardial effusion. No gross lymphadenopathy, mediastinum or perihilar. Multilevel spondylosis without acute fracture or gross listhesis. Pectus carinatum. CT/CT angio chest PE protocol IMPRESSION: Concerning acute airspace disease, left lung. 6 mm noncalcified pulmonary nodule, left lower lung lobe. Differential considerations include inflammatory versus infectious versus neoplasm. Fleischner guidelines were followed. Electronically signed by: Yariel Brooks MD 11/04/2024 01:34 PM EST RP Dictated By: Yariel Buchanan MD Signed By: <Electronically signed by Yariel Garcia MDin OV> 11/04/24 1334 DD/ 1316 TD/TT: 11/04/24 1316 [employer] Supervisor: us [facility] External Provider IMG CT PROCEDURES Final Result * CT Abdomen Pelvis w/ Contrast (11/04/2024 11:43 AM EST) Only the most recent of2 resultswithin the time period is included. Anatomical Region Laterality Modality Body, Pelvis, Abdomen Computed T omography 11/04/2024 11:4 3 AM EST Narrative 11/04/2024 1:32 PM EST ? [facility] ?[address] ?[place] [address] ? CT Scan Report ? Signed ? Patient: Kwan,Tri ?MR#: [id number] ?? 63 ? : 1970 ?Acct:[id number] ? Age/Sex: 54 / F ?ADM Date: 11/04/24 ? Loc: HO.ED ? Attending Dr: ? Ordering Physician: Brenden Denton MD ?? Date of Service: 11/04/24 ?? Procedure(s): CT abdomen pelvis w IV con ?? Accession Number(s): [id number] ? cc: Brenden Denton MD; Farhana Horn DO ? Report Number: ?? [id number]: Total DLP = ??462.00 mGy-cm ?? EXAMINATION: ?? CT ABDOMEN AND PELVIS WITH CONTRAST ? CLINICAL INFORMATION: ?? Abdominal pain. ? COMPARISON: ?? October 29, 2024 suggesting mild colitis, left hemicolon. ? TECHNIQUE: ?? Multidetector volumetric images were obtained from the superior aspect ?? of the liver through the pubic symphysis following administration 85 mL ?? of Omnipaque 350 intravenous contrast. Sagittal and coronal reformatted ?? images were obtained on the technologist's workstation. ? Oral contrast: No ? This CT examination was performed using dose optimization techniques as ?? appropriate, variously including the following: ?? *Automated exposure control ?? *Adjustment of mA and/or kV according to patient size (this includes ?? techniques or standardized protocols for targeted exams where dose is ?? matched to indication/reason for exam; i.e. extremities or head) ?? *Use of iterative reconstruction technique ?? DLP: 462 mGy centimeter. ? FINDINGS: ?? LUNG BASES: Pulmonary patchy groundglass. ? LIVER, GALLBLADDER, AND BILIARY TREE: ?? Liver measures 16 cm. No focal lesion. Portal veins, hepatic veins and ?? intrahepatic portions of the IVC are patent. ?? Status post cholecystectomy. ?? Common bile duct measures 7 mm. There is a focal 1 mm low density ?? probably fatty density in the distal common bile duct.. ? PANCREAS: No focal lesion. No peripancreatic fluid collections. No main ?? pancreatic ductal dilatation. Reduced volume of the pancreatic ?? parenchyma. ? SPLEEN: 7 cm. No focal lesion. ? ADRENAL GLANDS: There is a 1.1 cm nodule in the left adrenal gland. No ?? nodular lesions in the right adrenal gland. ? KIDNEYS AND URETERS: No gross renal mass. No hydronephrosis. Cortical ?? defect in the posterior midportion of the left kidney. Subcentimeter ?? hypodensities in the corticomedullary junction of the left kidney. ?? Questionable 1 mm calcification in the anterior midportion right ?? kidney. ? BLADDER: Fluid-filled. ? GASTROINTESTINAL TRACT: ?? Numerous diverticula in the left hemicolon. ?? Abundant stool gas and fluid in nondilated large intestine. ?? Appendix is normal. ?? No intestinal obstruction pattern. ?? No pneumatosis intestinalis. ?? No peripheral enhancing fluid collection. ? ABDOMINAL WALL: There is distal abdominal rectus muscles. There is a ?? questionable vascular clips in the deep portion of the umbilicus. ? LYMPH NODES: ?? Nonspecific prominent, mesenteric lymph nodes. ? VASCULAR: No aneurysm or dissection, abdominal aorta. ? PELVIC VISCERA: No gross masses in the uterus or the right adnexa. ? OSSEOUS STRUCTURES: Multilevel thoracolumbar spondylosis. Osteopenia ?? versus osteoporosis. No acute fracture or dislocation in either hip. ?? Bony pelvis is intact. ? CT/CT abdomen pelvis w IV con ?? IMPRESSION: ?? Diverticular disease, left hemicolon. ?Questionable cholesterol choledocholithiasis with mild prominent ?? common bile duct. ?? Probable nonobstructing calculi, right kidney. ? Fleischner guidelines were followed. ? Electronically signed by: ??Yariel Brooks MD ??11/04/2024 01:28 PM ?? EST ? Dictated By: ?Yariel Buchanan MD ? Signed By: ?<Electronically signed by Yariel Garcia MD in OV> ? 11/04/24 1328 ? DD/ 1143 ? TD/TT: 11/04/24 1316 ? [employer] Supervisor: ? Procedure Note Juice, Image - 11/04/[address] [place] [address] [address] Scan Report Signed Patient: Wang Bowens#: [id number] 63 : 1970Acct:[id number] Age/Sex: 54 / FADM Date: 11/04/24 Loc: HO.ED Attending Dr: Ordering Physician: Brenden Denton MD Date of Service: 11/04/24 Procedure(s): CT abdomen pelvis w IV con Accession Number(s): [id number] cc: Brenden Denton MD; Farhana Horn DO Report Number: [id number]: Total DLP = 462.00 mGy-cm EXAMINATION: CT ABDOMEN AND PELVIS WITH CONTRAST CLINICAL INFORMATION: Abdominal pain. COMPARISON: October 29, 2024 suggesting mild colitis, left hemicolon. TECHNIQUE: Multidetector volumetric images were obtained from the superior aspect of the liver through the pubic symphysis following administration 85 mL of Omnipaque 350 intravenous contrast. Sagittal and coronal reformatted images were obtained on the technologist's workstation. Oral contrast: No This CT examination was performed using dose optimization techniques as appropriate, variously including the following: *Automated exposure control *Adjustment of mA and/or kV according to patient size (this includes techniques or standardized protocols for targeted exams where dose is matched to indication/reason for exam; i.e. extremities or head) *Use of iterative reconstruction technique DLP: 462 mGy centimeter. FINDINGS: LUNG BASES: Pulmonary patchy groundglass. LIVER, GALLBLADDER, AND BILIARY TREE: Liver measures 16 cm. No focal lesion. Portal veins, hepatic veins and intrahepatic portions of the IVC are patent. Status post cholecystectomy. Common bile duct measures 7 mm. There is a focal 1 mm low density probably fatty density in the distal common bile duct.. PANCREAS: No focal lesion. No peripancreatic fluid collections. No main pancreatic ductal dilatation. Reduced volume of the pancreatic parenchyma. SPLEEN: 7 cm. No focal lesion. ADRENAL GLANDS: There is a 1.1 cm nodule in the left adrenal gland. No nodular lesions in the right adrenal gland. KIDNEYS AND URETERS: No gross renal mass. No hydronephrosis. Cortical defect in the posterior midportion of the left kidney. Subcentimeter hypodensities in the corticomedullary junction of the left kidney. Questionable 1 mm calcification in the anterior midportion right kidney. BLADDER: Fluid-filled. GASTROINTESTINAL TRACT: Numerous diverticula in the left hemicolon. Abundant stool gas and fluid in nondilated large intestine. Appendix is normal. No intestinal obstruction pattern. No pneumatosis intestinalis. No peripheral enhancing fluid collection. ABDOMINAL WALL: There is distal abdominal rectus muscles. There is a questionable vascular clips in the deep portion of the umbilicus. LYMPH NODES: Nonspecific prominent, mesenteric lymph nodes. VASCULAR: No aneurysm or dissection, abdominal aorta. PELVIC VISCERA: No gross masses in the uterus or the right adnexa. OSSEOUS STRUCTURES: Multilevel thoracolumbar spondylosis. Osteopenia versus osteoporosis. No acute fracture or dislocation in either hip. Bony pelvis is intact. CT/CT abdomen pelvis w IV con IMPRESSION: Diverticular disease, left hemicolon. Questionable cholesterol choledocholithiasis with mild prominent common bile duct. Probable nonobstructing calculi, right kidney. Fleischner guidelines were followed. Electronically signed by: Yariel Brooks MD 11/04/2024 01:28 PM EST RP Dictated By: Yariel Buchanan MD Signed By: <Electronically signed by Yariel Garcia MDin OV> 11/04/24 1328 DD/ 1143 TD/TT: 11/04/24 1316 [employer] Supervisor: [facility] External Provider IMG CT PROCEDURES Final Result * (ABNORMAL) POCT HGB A1C (11/04/2024 10:14 AM EST) Hemoglobin A1C 6.5(A) 4.0 - 6.0 % QC Media Lot # [id number] Lot# Expiration Date Blood 11/04/2024 10:1 4 AM EST Result [facility] Farhana Horn DO POINT OF CARE TEST ENTER/PAUL T ORDERABLES Final Result * POCT Glucose (11/04/2024 10:14 AM EST) Glucose Blood, POC 141 60 - 200 mg/dL QC Media Lot # [id number] Lot# Expiration Date Blood Capillary blood specimen / Unknown 11/04/2024 10:14 AM EST Result [facility] Farhana Horn DO POINT OF CARE TEST ENTER/PAUL T ORDERABLES Final Result * (ABNORMAL) Urinalysis, Complete, with Reflex to Culture (10/29/2024 11:01 PM EST) Color Urine Dark Yellow [facility] Appearance Urine Cloudy [facility] PH 5.5 5.0 - 9.0 [facility] Glucose Urine UA Negative Negative mg/dL [facility] Urine Blood Negative Negative [facility] Specific [place] - Urine >=1.030(H) 1.005 - 1.025 [facility] Urine Protein 30 (1+)(A) Neg-Trace mg/dL [facility] Urine Ketones 15 Negative mg/dL [facility] Nitrite Urine Negative Negative [facility] Leukocyte Esterase Urine Trace(A) Negative [facility] RBC Urine 0-2 0 - 2 /HPF [facility] Urine WBC 0-5 0 - 5 /HPF [facility] Urine Squamous Epithelial Cell 3-5 0 - 2 /HPF [facility] Urine Bacteria 1+ None Seen [facility] Hyaline Casts, Urine 3-5 0 - 2 /LPF [facility] 10/29/2024 11:0 1 PM EST 10/29/2024 11:12 PM EST Narrative [facility] - 10/29/2024 11:24 PM EST Urine, Clean Catch us [employer] External Data Provider LAB URINE ORDERAB LES Final Result [facility] [address] [place] [address] [phone] * SARS-CoV-2 RNA, Influenza A/B, and RSV RNA, Ql NAAT (10/29/2024 12:06 PM EST) Influenza A PCR NEGATIVE Negative [facility] Influenza B PCR NEGATIVE Negative [facility] Resp Syncy Virus RNA Qual PCR NEGATIVE Negative [facility] SARS COV2 PCR NEGATIVE Negative [facility] Comment:All test results mus [...] use by authorized laboratories.Testing performed on the [employer] GeneXpert utilizingreal-time RT-PCR.All SARS CoV2 and positive influenza A/B results arereported to [facility]. 10/29/2024 12:0 6 PM EST 10/29/2024 12:09 PM EST us Generic External Data Provider LAB MICROBIOLOGY - GENERAL ORDERABLES Final Result [facility] [address] [place] [address] [phone] * (ABNORMAL) CBC auto differential (10/29/2024 12:06 PM EST) White Blood Count 7.4 4.8 - 10.8 X10*3/uL [facility] Red Blood Count 4.83 4.20 - 5.50 X10*6/uL [facility] Hemoglobin 13.3 12.0 - 16.0 g/dl [facility] Hematocrit 40.4 37.0 - 47.0 % [facility] Mean Corpuscular Volume 83.6 80.0 - 98.0 fL [facility] Mean Corpuscular Hemoglobin 27.5 27.0 - 33.0 pg [facility] Mean Corpuscular HGB Conc 32.9 31.0 - 35.0 g/dl [facility] Red Cell Distribution Width 13.4 11.0 - 16.0 % [facility] Platelet Count 302 160 - 400 X10*3/uL [facility] Mean Platelet Volume 8.0(L) 9.4 - 12.3 fL [facility] Neutrophils Percent Auto 45.2 45 - 73 % [facility] Imm Gran Pct Auto 0.1 0.0 - 0.4 % [facility] Lymphocytes Percent Auto 40.7(H) 20 - 40 % [facility] Monocytes Percent Auto 11.2(H) 2 - 11 % [facility] Eosinophils Percent Auto 2.4 0 - 4 % [facility] Basophils Percent Auto 0.4 0 - 2 % [facility] NRBC Pct Auto 0.0 0.0 - 0.2 /100WBC [facility] Neutrophils Absolute Auto 3.3 2.0 - 8.3 x10*3/uL [facility] Imm Gran Abs Auto 0.01 0.00 - 0.03 X10*3/uL [facility] Lymphocytes Absolute Auto 3.0 1.2 - 4.9 X10*3/uL [facility] Monocytes Absolute Auto 0.8 0.1 - 1.2 X10*3/uL [facility] Eosinophils Absolute Auto 0.2 0.0 - 0.4 X10*3/uL [facility] Basophils Absolute Auto 0.0 0.0 - 0.2 X10*3/uL [facility] NRBC Abs Auto 0.000 0.0 - 0.012 X10*3/uL [facility] 10/29/2024 12:0 6 PM EST 10/29/2024 12:09 PM EST [employer] External Data Provider LAB BLOOD ORDERAB LES Final Result Performing Organization Address [facility] Co de Phone Number [facility] [address] [place] [address] [phone] * (ABNORMAL) Prothrombin Time-INR (10/29/2024 12:06 PM EST) Prothrombin Time 12.6(H) 10.9 - 12.4 SEC [facility] INTERNATIONAL NORM RATIO 1.1 0.9 - 1.1 [facility] Comment:INTERNATIONAL NORMAL IZED RATIO (INR) REFERENCE [...] 6 PM EST 10/29/2024 12:09 PM EST [employer] External Data Provider LAB BLOOD ORDERAB LES Final Result Performing Organization Address [facility] Co de Phone Number [facility] [address] [place] [phone] * Magnesium (10/29/2024 12:06 PM EST) Magnesium 1.9 1.6 - 2.6 mg/dL [facility] 10/29/2024 12:0 6 PM EST 10/29/2024 12:09 PM EST us Generic External Data Provider LAB BLOOD ORDERAB LES Final Result [facility] [address] [place] [address] [phone] * (ABNORMAL) Comprehensive Metabolic Panel (10/29/2024 12:06 PM EST) Sodium 140 135 - 145 mmol/L [facility] Potassium 3.7 3.3 - 5.1 mmol/L [facility] Chloride 112(H) 96 - 108 mmol/L [facility] Carbon Dioxide 21(L) 22 - 29 mmol/L [facility] Anion Gap 11(L) 12 - 20 [facility] Urea Nitrogen (BUN) 19(H) 9 - 16 mg/dL [facility] Creatinine, Serum 0.79 0.5 - 1.4 mg/dL [facility] Creatinine Clr Calc Pharmacy 68.7 [facility] Comment:Provided height and weight: 152.4 cm,68.6 kg.eGFR (calculated from the MDRD study equation) and eCrCl(calculated from the Cockcroft-Gault equation) are based ondifferent parameters and may not yield comparable results.If eCrCl result is absurd, please check patient'sheight/weight. Estimated Glomerular Filt Rate >60 [facility] Comment:Chronic Kidney Disea se: Estimated GFR < 60 mL/min/1.13b3Cuqmnf Kidney Disease: Estimated GFR < 15 mL/min/1.73m2 Glucose 123(H) 60 - 115 mg/dL [facility] Calcium 9.3 8.4 - 10.2 mg/dL [facility] Bilirubin, Total 0.4 0.0 - 1.0 mg/dL [facility] Aspartate Amino Transferase 28 5 - 31 U/L [facility] Alanine Aminotransferase 41(H) 0 - 31 U/L [facility] Total Protein 8.2(H) 6.5 - 8.0 g/dL [facility] Albumin Level 4.2 3.5 - 5.0 g/dL [facility] Alkaline Phosphatase 140(H) 39 - 117 U/L [facility] 10/29/2024 12:0 6 PM EST 10/29/2024 12:09 PM EST us Generic External Data Provider LAB BLOOD ORDERAB LES Final Result [facility] [address] [place] [address] [phone] * (ABNORMAL) HPV DNA, Low/High Risk (10/27/2024 9:07 AM EST) Pathologist [facility] HPV High Risk Positive(A) Negative [facility] HPV Genotype 16 Negative Negative [facility] HPV Genotype 18 Negative Negative [facility] Comment:HPV testing performe d at [facility] (CLIA#[id number]), [address] [place] [address].Testing for HPV was performed using the Milana [...] Provider LAB BLOOD ORDERAB LES Final Result [facility] [address] [place] [address] [phone] * Pap Smear (10/27/2024 9:07 AM EST) 10/27/2024 9:07 AM EST 10/27/2024 2:15 PM EST Narrative [facility] - 11/02/2024 3:56 PM EST ----- ------- Name: Tri Bowens ? Age/Sex: 53/F ? : 1970 Unit#: [id number] ?? Attend Dr: Fabio Morin MD ?Re10/27/24 ?Status: DEP REF ? Location: HO.LNP ?Disch: ? ----- ------- SPEC : [id number] ? RECD: 10/27/24-441 ? STATUS: ??SOUT ? REQ NUM: [id number] ? ANITA: 10/27/24-906 ? SUBM DR: Fabio Morin MD ? ENTERED: ??10/27/24-1420 ?SP TYPE: Pap Smr ?OTHR DR: Farhana Horn DO ? ORDERED: ??Pap Smear ? Interpretation ?? Satisfactory for evaluation. ?? Negative for intraepithelial lesion or malignancy. ? HPV High Risk: ??Positive ? HPV Genotyping 16: ??Negative ?? HPV Genotyping 18: ??Negative ?Clinical Information LMP:[place]NOWN Previous PAP test:2019 Other surgery: Other history: Copies To: ?? Farhana Horn DO ?? [facility] ?? [address] [facility] ?? [place] [address] ?? [phone] ?? Fabio Morin MD ?? [facility] Women's Services ?? [address] [place] [address] [address] ?? [place] [address] ?? [phone] ----- ------- Signed (signature on file) CORI Ortez ([facility]) 11/02/24 9195 ? ----- ------- ? END OF REPORT ? us Generic External Data Provider LAB CYTOLOGY NUBIAE QUE Final Result [facility] [address] [place] [address] [phone] * BI Mammogram Screening Tomosynthesis Bilateral (09/23/2024 10:30 AM EST) Anatomical Region Laterality Modality Breast Bilateral Mammography 09/23/2024 10:3 0 AM EST Narrative 10/04/2024 9:14 AM EST ? [facility] ? [address] ?[place] [address] ? Mammography Report ? Signed ? Patient: Tri Bowens ?MR#: [id number] ?? 63 ? : 1970 ?Acct:[id number] ? Age/Sex: 53 / F ?ADM Date: 01/15/25 ? Loc: HO.MAMMO ? Attending Dr: Farhana Horn DO ? Ordering Physician: Farhana Horn DO ?Results: 1N ?? egative ? Date of Service: 09/23/24 ?Follow Up: 1 Year From Orig ?? inal Mammogram ? Procedure(s): MM tomosynthesis screening BI ?? Accession Number(s): [id number] ? cc: Farhana Horn DO ? EXAMINATION: [...] DD/ 1030 ? TD/TT: 09/23/24 1041 ? Endless Track Vehicle Supervisor: ? Procedure Note Juice, Image - 10/04/2024 [facility] [address] [place] [address] [place] [address] Mammography Report Signed Patient: Wang Bowens#: [id number] 63 : 1970Acct:[id number] Age/Sex: 53 / FADM Date: 09/23/24 Loc: HO.MAMMO Attending Dr: Farhana Horn DO Ordering Physician: Farhana Hornults: 1N egative Date of Service: 09/23/24Follow Up: 1 Year From Orig inal Mammogram Procedure(s): MM tomosynthesis screening BI Accession Number(s): [id number] cc: Farhana Horn DO EXAMINATION: MM SCREENING [...] 10/04/24 0911 DD/ 1030 TD/TT: 09/23/24 1041 [employer] Track Vehicle Supervisor: Farhana Horn DO IMG BI PROCEDURES Edited Res ult - Final * Hematoxylin and Eosin Stain (09/04/2024 10:52 AM EST) 09/04/2024 10:5 2 AM EST 09/04/2024 11:33 AM EST Narrative [facility] - 09/11/2024 8:22 AM EST ----- ------- Name: Tri Bowens ? Age/Sex: 53/F ? : 1970 Unit#: [id number] ?? Attend Dr: Nani Bonner MD ?Re09/04/24 ?Status: DEP SDC ? Location: HO.SSS ?Disch: ? ----- ------- SPEC : [id number] ? RECD: 09/04/24-117 ? STATUS: ??SOUT ? REQ NUM: [id number] ? ANITA: 09/04/24-1052 ? SUBM DR: Nani Bonner MD ? ENTERED: ??09/04/24-1150 ?SP TYPE: Surgical ? OTHR : Farhana [...] ? Age/Sex: 53/F ? : 1970 Unit#: [id number] ?? Attend Dr: Nani Bonner MD ?Re09/04/24 ?Status: DEP SDC ? Location: HO.SSS ?Disch: ? ----- ------- SPEC : [id number] ? RECD: 09/04/24-828 ? STATUS: ??SOUT ? REQ NUM: [id number] ? ANITA: 09/04/24-1052 ? SUBM DR: Nani Bonner MD ? ENTERED: ??09/04/24-1150 ?SP TYPE: Surgical ? OTHR : Farhana [...] Copies To: ?? Farhana Horn DO ?? [facility] ?? [address] [facility] ?? [place] [address] ?? [phone] ?? Nani Bonner MD ?? [facility] Gastroenterology Services ?? [address] ?? [place] [address] ?? [phone] ?? [email or web address] ----- ------- Signed (signature on file) Deb Moi 09/07/24 1557 ? ----- ------- ? END OF REPORT ? Generic External Data Provider LAB BLOOD ORDERAB LES Final Result Performing Organization Address [facility] de Phone Number [facility] [address] [place] [address] [phone] * Glucose, Whole Blood (09/04/2024 10:10 AM EST) Pathologist [facility] Glucose, Whole Blood 107 60 - 115 mg/dL [facility] Comment:METER #: [id number] 09/04/2024 10:1 0 AM EST 09/04/2024 10:18 AM EST Generic External Data Provider LAB BLOOD ORDERAB LES Final Result Performing Organization Address [facility] de Phone Number [facility] [address] [place] [address] [phone] * Albumin, Random Urine W/Creatinine (07/26/2023 12:26 PM EST) Creatinine, Urine 182.16 mg/dL [facility] Microalbumin Urine 14.0 mg/L [facility] Microalbum Creatinine Ratio Ur 7.6 <30 ug/mg cr [facility] Comment:Albumin/Creatinine R atio Reference Ranges: Normal: < 30 ug/mg creatinine Microalbuminuria: 30 - 300 ug/mg creatinineClinical Albuminuria: > 300 ug/mg creatinine 07/26/2023 12:2 6 PM EST 07/26/2023 1:28 PM EST Farhana Horn DO LAB URINE ORDERABLES Final R esult Performing Organization Address [facility] Co de Phone Number [facility] [address] [place] [address] [phone] * (ABNORMAL) Lipid Panel, Standard (07/26/2023 12:23 PM EST) Triglycerides 132 <150 mg/dL [facility] Comment:Desirable Triglyceri de: less than 150 mg/dLBorderline High Triglyceride 150-199 mg/dLHigh Triglyceride: 200-499 mg/dLVery High Triglyceride: greater than or equal to 5OO mg/dL Cholesterol 150 <200 mg/dL [facility] Comment:Desirable Cholestero l: less than 200 mg/dLBorderline High Cholesterol: 200-239 mg/dLHigh Cholesterol: greater than 239 mg/dL LDL Cholesterol Calculated 85 <100 mg/dL [facility] Comment:Desirable LDL: less than 100 mg/dLNear Optimal/Above Optimal LDL: 110- 129 mg/dLBorderline High LDL: 130-159 mg/dLHigh LDL: 160-189 mg/dLVery High LDL: greater than or equal to 190 mg/dL HDL Cholesterol 39(L) >40 mg/dL [facility] Comment:Desirable HDL: great er than 40 mg/dL Note: This HDL assay may give artificially low results in patients with liver disease. Blood Venous blood specimen / Unknown 07/26/2023 12:23 PM EST 07/26/2023 1:26 PM EST Farhana Horn DO LAB BLOOD ORDERABLES Final R esult Performing Organization Address City/[facility]/ZIP Co de Phone Number [facility] [address] [place] [phone] [phone] * HEPATITIS C AB W/REFL TO [...] a test for HCV RNA (test code 95515) is suggested. ?? For additional information please refer to http://[employer]/faq/NMC02c4 (This link is being provided for informational/ [...] ? For additional information please refer to http://[employer]/faq/XUU262 (This link is being provided for informational/ educational purposes only.) ? The performance of this assay has not been clinically validated in patients less than 2 years old. ?? 07/09/2022 8:24 AM EDT Farhana Horn DO LAB BLOOD ORDERABLES Final R esult [facility] * Hm Colonoscopy (01/27/2019 8:43 AM EDT) Historical Provider MD HEALTH MAINTENANCE Final Result from Last 3 Months or Most Recently Relevant to Health Maintenance Insurance [employer] Care Teams Well Point Pumping Supervisor Relationship Specialty Start Date End Date Farhana Horn DO [address] [place] [address] PCP - General Family Medicine 09/09/18
--- OUTSIDE RECORDS SUMMARY | 2024-11-04 14:47 | XMS_ITS | Encounter Summary ---
Author Organization [employer] Address [address] [place] [address] 7 [place] [address] Care Team Providers Care Elementary Reading Tutor Name Role Phone Farhana Horn DO Primary Care Provider [phone] Encounter Details Date Type Department Care Team (Latest Contact Info) Description 10/16/2019 Abstract [facility] CONVERSIONS Dental, Provider, DDS Social History [...] on filedocumented in this encounter Care Teams Elementary Reading Tutor Relationship Specialty Start Date End Date Farhana Horn DO [address] [place] [address] PCP - General Family Medicine 09/09/18 documented as of this encounter
--- OUTSIDE RECORDS SUMMARY | 2024-11-04 14:47 | XMS_ITS | Encounter Summary ---
Author Organization [employer] Address [address] [place] [address] 7t [place] [address] Care Team Providers Care Cyber Threat Analyst Name Role Phone Farhana Horn DO Primary Care Provider + [phone] Encounter Details Date Type Department Care Team ([facility] st Contact Info) Description 11/04/2024 10:00 AM EST Office Visit [facility] [address] [place] [address] Farhana Horn DO [address] [place] [address] Generalized abdominal pain (Primary Dx); Cough with hemoptysis; Generalized weakness; Type 2 diabetes mellitus without complication, without long-term current use of insulin ([facility]) Social History Tobacco Use Types Packs/Day Years [...] AM EDT documented as of this encounter Last Filed Vital Signs Vital Sign Reading Time Taken Comments Blood Pressure 119/77 11/04/2024 10:08 AM EST Pulse - - Temperature 36.1 ??C (96.9 ??F) 11/04/2024 10:[address] Respiratory Rate 21 11/04/2024 10:08 AM EST Oxygen Saturation - - Inhaled Oxygen Concentration - - Weight 71.7 kg (158 lb 2 oz) 11/04/2024 10:08 AM EST Height 152.4 cm (5') 11/04/2024 10:08 AM EST Body Mass Index 30.88 11/04/2024 10:08 AM EST documented in this encounter Plan of Treatment Not on file documented as of this encounter Procedures Procedure Name Priority Date/Time Associated Diagnosis Comments POCT GLYCATED HEMOGLOBIN, TOTAL Routine 11/04/2024 10:14 AM EST Type 2 diabetes mellitus without complication, without long-term current use of insulin ([facility]) POCT GLUCOSE Routine 11/04/2024 10:14 AM EST Type 2 diabetes mellitus without complication, without long-term current use of insulin ([facility]) documented in this encounter Results * POCT Glucose (11/04/2024 10:14 AM EST) Glucose Blood, POC 141 60 - 200 mg/dL QC Media Lot # [id number] Lot# Expiration Date [id number] Blood Capillary blood specimen / Unknown 11/04/2024 10:14 AM EST Farhana Horn DO POINT OF CARE TEST ENTER/PAUL T ORDERABLES Final Result * (ABNORMAL) POCT HGB A1C (11/04/2024 10:14 AM EST) Hemoglobin A1C 6.5(A) 4.0 - 6.0 % QC Media Lot # [id number] Lot# Expiration Date Blood 11/04/2024 10:1 4 AM EST Result [facility] Farhana Horn DO POINT OF CARE TEST ENTER/PAUL T ORDERABLES Final Result documented in this encounter Visit Diagnoses Diagnosis Generalized abdominal pain- Primary Abdominal pain, generalized Cough with hemoptysis Generalized weakness Type 2 diabetes mellitus without complication, without long-term current use of insulin ([facility]) documented in this encounter Additional Health Concerns Assessment Noted Time PHQ-9 Depression Total Score: 4 12/09/19 24 10:18 AM EDT documented as of this encounter Care Teams Cyber Threat Analyst Relationship Specialty Start Date End Date Farhana Horn DO [address] [place] [address] PCP - General Family Medicine 09/09/18 documented as of this encounter
--- OUTSIDE RECORDS SUMMARY | 2024-11-04 14:47 | XMS_ITS | Encounter Summary ---
Author Organization [employer] Address [address] [facility] 7t [place] [address] Care Team Providers Care Housing Project Manager Name Role Phone Farhana Horn Primary Care [...] documented as of this encounter Care Teams Housing Project Manager Relationship Specialty Start Date End Date Farhana Horn DO [address] [place] [address] PCP - General Family Medicine 09/09/18 documented as of this encounter
--- OUTSIDE RECORDS SUMMARY | 2024-11-04 14:47 | XMS_ITS | Encounter Summary ---
Author Organization [employer] Address [address] [facility] 7t [place] [address] Care Team Providers Care Can Washer Name Role Phone LizFarhana key Primary Care Provider + [phone] Encounter Details Date Type Department Care Team (Late st Contact Info) Description 11/04/2024 Orders Only [facility] External Provider, [facility] Social History Tobacco Use Types Packs/Day Years [...] W CONTRAST Routine 11/04/2024 11:43 AM EST documented in this encounter Results * CTA Chest PE Protocal (11/04/2024 1:16 PM EST) Anatomical Region Laterality Modality Body, Chest Computed Tomogra phy 11/04/2024 1:16 PM EST Narrative 11/04/2024 1:38 PM EST ? [facility] ?[address] ?[place] [address] ? CT Scan Report ? Signed ? Patient: Tri Bowens ?MR#: [id number] ?? 63 ? : 1970 ?Acct:[id number] ? Age/Sex: 54 / F ?ADM Date: 11/04/24 ? Loc: HO.ED ? Attending Dr: ? Ordering Physician: Brenden Denton MD ?? Date of Service: 11/04/24 ?? Procedure(s): CT angio chest PE protocol ?? Accession Number(s): [id number] ? cc: Brenden Denton MD; Farhana Horn DO ? Report Number: ?? [id number]: Total DLP = ??278.00 mGy-cm ?? EXAMINATION: [...] in OV> ? 11/04/24 1334 ? DD/ ? TD/TT: 11/04/241315 ? Tank Wagon Operator: ? Procedure Note Juice, Image - 11/04/[address] [address] [address] Scan Report Signed Patient: Tri BowensMR#: [id number] 63 : 1970Acct:[id number] Age/Sex: 54 / FADM Date: 11/04/24 Loc: .ED Attending Dr: Ordering Physician: Brenden Denton MD Date of Service: 11/04/24 Procedure(s): CT angio chest PE protocol Accession Number(s): [id number] cc: Brenden Denton MD; Farhana Horn DO Report Number: [id number]: Total DLP = 278.00 mGy-cm EXAMINATION: CT [...] 11/04/24 1334 DD/ 1316 TD/TT: 11/04/24 1316 Tank Wagon Operator: us [facility] External Provider IMG CT PROCEDURES Final Result * CT Abdomen Pelvis w/ Contrast (11/04/2024 11:43 AM EST) Anatomical Region Laterality Modality Body, Pelvis, Abdomen Computed T omography 11/04/2024 11:4 3 AM EST Narrative 11/04/2024 1:32 PM EST ? [facility] ?[address] ?[place] [address] ? CT Scan Report ? Signed ? Patient: Kwan,Tri ?MR#: [id number] ?? 63 ? : 1970 ?Acct:[id number] ? Age/Sex: 54 / F ?ADM Date: 11/04/24 ? Loc: HO.ED ? Attending Dr: ? Ordering Physician: Brenden Denton MD ?? Date of Service: 11/04/24 ?? Procedure(s): CT abdomen pelvis w IV con ?? Accession Number(s): [id number] ? cc: Brenden Denton MD; Farhana Horn DO ? Report Number: ?? [id number]: Total DLP = ??462.00 mGy-cm ?? EXAMINATION: [...] Brooks MD ??11/04/2024 01:28 PM ?? EST RP ? Dictated By: ?Yariel Buchanan MD ? Signed By: ?<Electronically signed by Yariel Garcia MD in OV> ? 11/04/24 1328 ? DD/ 1143 ? TD/TT: 11/04/24 1316 ? Tank Wagon Operator: ? Procedure Note Juice, Image - 11/04/[address] [place] [address] [address] Scan Report Signed Patient: Wang Bowens#: [id number] 63 : 1970Acct:[id number] Age/Sex: 54 / FADM Date: 11/04/24 Loc: HO.ED Attending Dr: Ordering Physician: Brenden Denton MD Date of Service: 11/04/24 Procedure(s): CT abdomen pelvis w IV con Accession Number(s): [id number] cc: Brenden Denton MD; Farhana Horn DO Report Number: [id number]: Total DLP = 462.00 mGy-cm EXAMINATION: CT [...] by: Yariel Brooks MD 11/04/2024 01:28 PM [facility] Dictated By: Yariel Buchanan MD Signed By: <Electronically signed by Yariel Garcia MDin OV> 11/04/24 1328 DD/ 1143 TD/TT: 11/04/24 1316 Tank Wagon Operator: [facility] External Provider IMG CT PROCEDURES Final Result documented in this encounter Visit Diagnoses Not on filedocumented in this encounter Additional Health Concerns Assessment Noted Time PHQ-9 Depression Total Score: 4 12/09/19 24 10:18 AM EDT documented as of this encounter Care Teams Can Washer Relationship Specialty Start Date End Date Farhana Horn DO [address] [place] [address] PCP - General Family Medicine 09/09/18 documented as of this encounter
--- OUTSIDE RECORDS SUMMARY | 2024-11-04 14:47 | XMS_ITS | Encounter Summary ---
Author Organization [employer] Address [address] [place] [address] [address] [place] [address] Care Team Providers Care Technical Applications Specialist Name Role Phone Farhana Horn DO Primary Care Provider Encounter Details Date Type Department Care Team (Late st Contact Info) Description 09/12/2022 Orders Only [facility] [address] [place] [address] Farhana Horn DO [address] [place] [address] Social History Tobacco Use Types Packs/Day Years [...] on filedocumented in this encounter Care Teams Technical Applications Specialist Relationship Specialty Start Date End Date Farhana Horn DO [address] [place], [place] [phone] PCP - General Family Medicine 09/09/18 documented as of this encounter
--- OUTSIDE RECORDS SUMMARY | 2024-11-04 14:47 | XMS_ITS | Encounter Summary ---
Author Organization [employer] Address [address] [place] [address] [address]t [place] [address] Care Team Providers Care Electronic Service Technician Name Role Phone Farhana Horn Primary Care Provider [phone] Encounter Details Date Type Department Care Team (Latest Contact Info) Description 11/04/2024 Travel Social History Tobacco Use Types Packs/Day [...] documented as of this encounter Care Teams Electronic Service Technician Relationship Specialty Start Date End Date Farhana Horn DO [address] [place] [address] PCP - General Family Medicine 09/09/18 documented as of this encounter
--- OUTSIDE RECORDS SUMMARY | 2024-11-04 14:47 | XMS_ITS | Encounter Summary ---
Author Organization [employer] Address [address] [facility] 7t [place] [address] Care Team Providers Care Music Composer Name Role Phone Farhana Horn DO Primary Care Provider + [phone] Encounter Details Date Type Department Care Team ([facility] st Contact Info) Description 08/08/2023 Telephone [facility] [address] [place] [address] Farhana Horn DO [address] [place] [address] Social History Tobacco Use Types Packs/Day Years [...] documented as of this encounter Care Teams Music Composer Relationship Specialty Start Date End Date Farhana Horn DO [address] [place] [address] PCP - General Family Medicine 09/09/18 documented as of this encounter
--- OUTSIDE RECORDS SUMMARY | 2024-11-04 14:47 | XMS_ITS | Encounter Summary ---
Author Organization [employer] Address [address] [facility] 7t [place] [address] Care Team Providers Care Process Operator Name Role Phone Farhana Horn Primary Care Provider [phone] Reason for Visit * Reason Onset Date Comments Recall Letter 10/15/2024 Recall Letter se nt 10/15/24. Encounter Details Date Type Department Care Team ([facility] st Contact Info) Description 10/15/2024 Telephone [facility] MED[facility] [address] [place] [address] Sudha Doss [place] Recall Letter (Recall Letter [...] documented as of this encounter Care Teams Process Operator Relationship Specialty Start Date End Date Farhana Horn DO [address] [place] [address] PCP - General Family Medicine 09/09/18 documented as of this encounter
--- OUTSIDE RECORDS SUMMARY | 2024-11-04 14:47 | XMS_ITS | Encounter Summary ---
Author Organization [employer] Address [address] [place] [address] 7[address] [place] [address] Care Team Providers Care Club Attendant Name Role Phone LizFarhana key Primary Care Provider [phone] Encounter Details Date Type Department Care Team [...] EST Narrative 10/29/2024 11:54 PM EST ? [facility] ?[address] ?[place] [address] ? CT Scan Report ? Signed ? Patient: Kwan,Tri ?MR#: [id number] ?? 63 ? : 1970 ?Acct:[id number] ? Age/Sex: 54 / F ?ADM Date: 02/20/25 ? Loc: HO.ED ? Attending Dr: ? Ordering Physician: Matt Nelson ?? Date of Service: 10/29/24 ?? Procedure(s): CT abdomen pelvis w IV con ?? Accession Number(s): [id number] ? cc: Farhana Horn DO; Matt Nelson ? Report Number: ?? [id number]: Total DLP = ??539.00 mGy-cm ? CLINICAL [...] phenomenon at transitional ?? lumbosacral junction with ubdnxwxa-br-ijksqk bilateral facet arthropathy ?? and mild spinal [...] MD in OV> ? 10/29/242352 ? DD/ ? TD/TT: 10/29/243 ? Caregiver Services Home: ? 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 with vpdiipbq-db-imeelw bilateral facet arthropathy and mild spinal stenosis [...] in OV> 10/29/242352 DD/ 52 TD/TT: 10/29/242352 Caregiver Services Home: [facility] External Provider IMG CT PROCEDURES Final Result * (ABNORMAL) Urinalysis, Complete, with Reflex to Culture (10/29/2024 11:01 PM EST) Color Urine Dark Yellow [facility] Appearance Urine Cloudy [facility] PH 5.5 5.0 - 9.0 [facility] Glucose Urine UA Negative Negative mg/dL [facility] Urine Blood Negative Negative [facility] Specific [place] - Urine >=1.030(H) 1.005 - 1.025 [facility] Urine Protein 30 (1+)(A) Neg-Trace mg/dL [facility] Urine Ketones 15 Negative mg/dL [facility] Nitrite Urine Negative Negative [facility] Leukocyte Esterase Urine Trace(A) Negative [facility] RBC Urine 0-2 0 - 2 /HPF [facility] Urine WBC 0-5 0 - 5 /HPF [facility] Urine Squamous Epithelial Cell 3-5 0 - 2 /HPF [facility] Urine Bacteria 1+ None Seen [facility] Hyaline Casts, Urine 3-5 0 - 2 /LPF [facility] 10/29/2024 11:0 1 PM EST 10/29/2024 11:12 PM EST Narrative [facility] - 10/29/2024 11:24 PM EST Urine, Clean Catch Generic External Data Provider LAB URINE ORDERAB LES Final Result [facility] [address] [place] [phone] * SARS-CoV-2 RNA, Influenza A/B, and RSV RNA, Ql NAAT (10/29/2024 12:06 PM EST) Pathologist [facility] [place] Influenza A PCR NEGATIVE Negative [facility] Influenza B PCR NEGATIVE Negative [facility] Resp Syncy Virus RNA Qual PCR NEGATIVE Negative [facility] SARS COV2 PCR NEGATIVE Negative [facility] Comment:All test results mus [...] use by authorized laboratories.Testing performed on the [employer] GeneXpert utilizingreal-time RT-PCR.All SARS CoV2 and positive influenza A/B results arereported to [facility]. 10/29/2024 12:0 6 PM EST 10/29/2024 12:09 PM EST Generic External Data Provider LAB MICROBIOLOGY - GENERAL ORDERABLES Final Result Performing Organization Address [facility]/ZIP Co de Phone Number [facility] [address] [place] [phone] * Magnesium (10/29/2024 12:06 PM EST) Pathologist [facility] [place] Magnesium 1.9 1.6 - 2.6 mg/dL [facility] 10/29/2024 12:0 6 PM EST 10/29/2024 12:09 PM EST Generic External Data Provider LAB BLOOD ORDERAB LES Final Result Performing Organization Address [facility] Co de Phone Number [facility] [address] [place] [phone] * (ABNORMAL) Comprehensive Metabolic Panel (10/29/2024 12:06 PM EST) Sodium 140 135 - 145 mmol/L [facility] Potassium 3.7 3.3 - 5.1 mmol/L [facility] Chloride 112(H) 96 - 108 mmol/L [facility] Carbon Dioxide 21(L) 22 - 29 mmol/L [facility] Anion Gap 11(L) 12 - 20 [facility] Urea Nitrogen (BUN) 19(H) 9 - 16 mg/dL [facility] Creatinine, Serum 0.79 0.5 - 1.4 mg/dL [facility] Creatinine Clr Calc Pharmacy 68.7 [facility] Comment:Provided height and weight: 152.4 cm,68.6 kg.eGFR (calculated from the MDRD study equation) and eCrCl(calculated from the Cockcroft-Gault equation) are based ondifferent parameters and may not yield comparable results.If eCrCl result is absurd, please check patient'sheight/weight. Estimated Glomerular Filt Rate >60 [facility] Comment:Chronic Kidney Disea se: Estimated GFR < 60 mL/min/1.63w1Laeiep Kidney Disease: Estimated GFR < 15 mL/min/1.73m2 Glucose 123(H) 60 - 115 mg/dL [facility] Calcium 9.3 8.4 - 10.2 mg/dL [facility] Bilirubin, Total 0.4 0.0 - 1.0 mg/dL [facility] Aspartate Amino Transferase 28 5 - 31 U/L [facility] Alanine Aminotransferase 41(H) 0 - 31 U/L [facility] Total Protein 8.2(H) 6.5 - 8.0 g/dL [facility] Albumin Level 4.2 3.5 - 5.0 g/dL [facility] Alkaline Phosphatase 140(H) 39 - 117 U/L [facility] 10/29/2024 12:0 6 PM EST 10/29/2024 12:09 PM EST us Generic External Data Provider LAB BLOOD ORDERAB LES Final Result [facility] [address] [place] [address] [phone] * (ABNORMAL) Prothrombin Time-INR (10/29/2024 12:06 PM EST) Pathologist [facility] [place] Prothrombin Time 12.6(H) 10.9 - 12.4 SEC [facility] INTERNATIONAL NORM RATIO 1.1 0.9 - 1.1 [facility] Comment:INTERNATIONAL NORMAL IZED RATIO (INR) [...] ORDERAB LES Final Result Performing Organization Address [facility] Co de Phone Number [facility] [address] [place] [phone] * (ABNORMAL) CBC auto differential (10/29/2024 12:06 PM EST) Pathologist [facility] [place] White Blood Count 7.4 4.8 - 10.8 X10*3/uL [facility] Red Blood Count 4.83 4.20 - 5.50 X10*6/uL [facility] Hemoglobin 13.3 12.0 - 16.0 g/dl [facility] Hematocrit 40.4 37.0 - 47.0 % [facility] Mean Corpuscular Volume 83.6 80.0 - 98.0 fL [facility] Mean Corpuscular Hemoglobin 27.5 27.0 - 33.0 pg [facility] Mean Corpuscular HGB Conc 32.9 31.0 - 35.0 g/dl [facility] Red Cell Distribution Width 13.4 11.0 - 16.0 % [facility] Platelet Count 302 160 - 400 X10*3/uL [facility] Mean Platelet Volume 8.0(L) 9.4 - 12.3 fL [facility] Neutrophils Percent Auto 45.2 45 - 73 % [facility] Imm Gran Pct Auto 0.1 0.0 - 0.4 % [facility] Lymphocytes Percent Auto 40.7(H) 20 - 40 % [facility] Monocytes Percent Auto 11.2(H) 2 - 11 % [facility] Eosinophils Percent Auto 2.4 0 - 4 % [facility] Basophils Percent Auto 0.4 0 - 2 % [facility] NRBC Pct Auto 0.0 0.0 - 0.2 /100WBC [facility] Neutrophils Absolute Auto 3.3 2.0 - 8.3 x10*3/uL [facility] Imm Gran Abs Auto 0.01 0.00 - 0.03 X10*3/uL [facility] Lymphocytes Absolute Auto 3.0 1.2 - 4.9 X10*3/uL [facility] Monocytes Absolute Auto 0.8 0.1 - 1.2 X10*3/uL [facility] Eosinophils Absolute Auto 0.2 0.0 - 0.4 X10*3/uL [facility] Basophils Absolute Auto 0.0 0.0 - 0.2 X10*3/uL [facility] NRBC Abs Auto 0.000 0.0 - 0.012 X10*3/uL [facility] 10/29/2024 12:0 6 PM EST 10/29/2024 12:09 PM EST us Generic External Data Provider LAB BLOOD ORDERAB LES Final Result [facility] [address] [place] [phone] documented in this encounter Visit Diagnoses Not on filedocumented in this encounter Additional Health Concerns Assessment Noted Time PHQ-9 Depression Total Score: 4 12/09/19 24 10:18 AM EDT documented as of this encounter Care Teams Club Attendant Relationship Specialty Start Date End Date Farhana Horn DO [address] [place] [phone] PCP - General Family Medicine 09/09/18 documented as of this encounter
--- OUTSIDE RECORDS SUMMARY | 2024-11-04 14:47 | XMS_ITS | Encounter Summary ---
Author Organization [employer] Address [address] [place] [address] 7t [place] [address] Care Team Providers Care Tobacco Flavorer Name Role Phone Farhana Horn DO Primary Care Provider + [phone] Reason for Visit * Reason Comments Med Refill Encounter Details Date Type Department Care Team ([facility] st Contact Info) Description 10/23/2024 Refill [facility] [address] [place] [address] Farhana Horn DO [address] [place] [address] Seasonal allergic rhinitis, unspecified trigger Social History [...] documented as of this encounter Care Teams Tobacco Flavorer Relationship Specialty Start Date End Date Farhana Horn DO [address] [place] [phone] PCP - General Family Medicine 09/09/18 documented as of this encounter
--- OUTSIDE RECORDS SUMMARY | 2024-11-04 14:47 | XMS_ITS | Encounter Summary ---
Author Organization [employer] Address [address] [facility] [address] [place] [address] Care Team Providers Care Numerical Control Machine Tool Operator Name Role Phone LizFarhana key Primary Care Provider + [phone] Reason for Visit * Reason Comments Diabetic Eye Exam Encounter Details Date Type Department Care Team ([facility] st Contact Info) Description 10/22/2024 2:00 PM EST Office Visit [facility] [address] [place] [address] Steven, Danette, OD [address] [place] [address] Diabetes type 2, no ocular involvement (CMS/HCC) [...] Diagnosis Diabetes type 2, no ocular involvement (CMS/[facility])- Primary Vitelliform lesion of macula Headache, unspecified headache type Presbyopia documented in this encounter Additional Health Concerns Assessment Noted Time PHQ-9 Depression Total Score: 4 12/09/19 24 10:18 AM EDT documented as of this encounter Care Teams Numerical Control Machine Tool Operator Relationship Specialty Start Date End Date Farhana Horn DO [address] [place] [address] PCP - General Family Medicine 09/09/18 documented as of this encounter
--- OUTSIDE RECORDS SUMMARY | 2024-11-04 14:47 | XMS_ITS | Encounter Summary ---
Author Organization [employer] Address [address] [place] [address] 7 [place] [address] Care Team Providers Care Assessment Director Name Role Phone Farhana Horn DO Primary Care Provider + [phone] Reason for Visit * Reason Onset Date Comments Appointment Request 10/29/2024 Encounter Details Date Type Department Care Team ([facility] st Contact Info) Description 10/29/2024 Telephone [facility] MEDICINE [address] [place] [address] Farhana Horn DO [address] [place] [address] Appointment Request Social History Tobacco Use Types [...] documented as of this encounter Care Teams Assessment Director Relationship Specialty Start Date End Date Farhana Horn DO [address] [place] [address] PCP - General Family Medicine 09/09/18 documented as of this encounter
[2024-11-04 15:48] LABS: Influenza A PCR POSITIVE (Negative); Influenza B PCR NEGATIVE (Negative); Resp Syncy Virus RNA Qual PCR NEGATIVE (Negative); SARS COV2 PCR INHOUSE NEGATIVE (Negative)
[2024-11-04 16:26] VITALS: BP 145/118; PULSE 62; RESP 18; TEMP 36.9; O2SAT 98
[2024-11-04 16:32] VITALS: BP 145/118; PULSE 62; RESP 18; TEMP 36.9; O2SAT 98
== END 2024-11-04 16:37 | disposition home or self-care (01) ==
PROVIDERS: Emergency Provider Emergency Medicine; PCP Family Medicine
DX: J09.X1 Influenza due to identified novel influenza A virus with pneumonia (principal); R10.30 Lower abdominal pain, unspecified; R05.9 Cough, unspecified; E11.9 Type 2 diabetes mellitus without complications; I10 Essential (primary) hypertension; E78.5 Hyperlipidemia, unspecified; Z79.85 Long-term (current) use of injectable non-insulin antidiabetic drugs; Z79.02 Long term (current) use of antithrombotics/antiplatelets; Z79.899 Other long term (current) drug therapy; Z03.818 Encounter for observation for suspected exposure to other biological agents ruled out
CPT/HCPCS: 0241U; 36415; 71275; 74177; 80053; 83690; 84484; 85025; 96361; 96374; 96375; 99284; J2270; J2405; Q9967

== ENCOUNTER → 2024-11-04 11:43 | Outpatient (BNV) | payer MEDICAID, SELFPAY | PROVIDERS: Emergency Provider Emergency Medicine; PCP Family Medicine; Visit Provider Radiology Diagnostic Radiology | DX: K57.30 Diverticulosis of large intestine without perforation or abscess without bleeding (principal); R91.1 Solitary pulmonary nodule | CPT/HCPCS: 71275; 74177 ==

== ENCOUNTER 2024-11-13 08:46 | Outpatient (AMB) | payer MEDICAID, SELFPAY ==
--- NOTE | 2024-11-13 08:52 | A.OFFVIS_ITS ---
Vital Signs 11/13/24 08:55 Height 5 ft 1 in Weight 158 lb 11.725 oz BMI 30.0 BP 110/68 Blood Pressure Location Rt brachial Position Sitting Pulse 100 Pulse Source Pulse Oximeter Pulse Oximetry (%) 98 Oxygen Delivery Method Room Air Intake Visit Reasons: Type 2 diabetes mellitus without complications Intake Note: NEW Patient presents today to establish treatment for Type 2 Diabetes Mellitus: Last Diabetic eye exam was on: DUE Last Podiatry exam was on: Patient does not see a Epoxy Coatings Installer? Most recent HbA1c: 6.3%, 11/13/2024 Random Glucose- 185 mg/dL, Today Termite Renewal Inspector Required: Yes Termite Renewal Inspector Services: Termite Renewal Inspector Present Termite Renewal Inspector Name: HARPREET Pryor/ESTEFANY AMIN Information Interpreted: non-clinical & clinical Accompanied by: Self / Same As Patient Allergies Penicillins [PENICILLINS] Allergy (Severe, Verified 11/04/24 11:27) RASH trulicity Adverse Reaction (Mild, Uncoded 11/13/24 09:33) Gastrointestinal Upset HPI Comments Details: [age] YO female who is seen in consultation for T2DM at the request of GI provider. Initially diagnosed with T2DM 2021 Was initially started on treatment with: metformin: no issues med wasn't refilled Trulicity 0.75 weekly stopped had gi issues Current regimen: None Checks sugars;Doesn't check Reports low sugars: no Most recent A1C 6.3, down from prior 7.6 % on 07/26/23. Family history of T2DM in mother and father Has eyes checked yearly, last eye exam 11/03, one eye small change not related to retinopathy. Denies neuropathy, on gabapentin for back related issues, last foot exam today in the office, Does not see podiatry. No nephropathy, not on julio inhibitor 10/03 eGFR>60 microalbumin 14.0 2022 ua +prot 30 10/03 in ER [Has] HLD, on [statin]. Last LDL [] as measured on []. [Denies] CAD. She is followed by GI for GERD, esophageal dysmotility, IBS, chronic idiopathic diarrhea Diet: She reports she does not have much appetite. She is in the midst of a GI workup, Does not eat an excessive amount of sweets and has small portion Weight: Weight down 6 lb over the last few years Has not had diabetes education or nutrition visit. [facility] Medical History (Updated 11/13/24 @ 09:30 by Hillary Esteban NP) Type 2 diabetes mellitus Diverticulosis Renal calculi Gastric varices Migraine headache Depression GERD (gastroesophageal reflux disease) Diabetes mellitus Adrenal nodule IBS (irritable bowel syndrome) HTN (hypertension) Hyperlipemia Surgical History History of surgery History of esophagogastroduodenoscopy (EGD) Hx of colonoscopy Hx of tubal ligation Hx of discectomy Family History Father Hx of type 1 diabetes mellitus History of epilepsy Mother Family history of high blood pressure Hx of cancer of uterus Social History Household Members Other:: daughter Housing: House Alcohol intake: never Patient Tobacco Use Status: Never used Tobacco Current occupational status: employed 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 Absence of acromegalic features. Neck exam reveals nl size thyroid about 15 gms. No thyroid nodules palpable. No carotid bruits present. Lungs CTA. Heart S1 S2, Reg R/R. No M/R/ G. Skin exam reveals absence of vitiligo or acanthosis nigricans. Abdominal exam reveals Soft NT/ND with NA BS. No organomegaly present. Const Other: Absence of Cushingoid features. Absence of acromegalic features. Neck exam reveals nl size thyroid about 15 gms. No thyroid nodules palpable. Heart S1 S2, Reg R/R. No M/R G. Skin exam reveals absence of vitiligo, mild acanthosis nigricans. Visual exam of foot performed. No ulcerations or open lesions. No inter digit maceration or fissuring. No onychomycosis, no callouses. Sensation intact to monofilament exam. Vibratory sensation is normal with 128 Hz tuning fork. Good cap refill pulses positive Neck Other: . Extrem Other: Visual exam of foot performed. No ulcerations or open lesions. No onchomycosis, no callouses.Pulses 2 + distally Sensation intact to monofilament exam. Vibratory sensation sensed is intact with 128 Hz tuning fork Results Reviewed Results Reviewed: Laboratory Last Values Glucose (Clinic) 165 mg/dL (60-115) H 11/13/24 09:04 Assessment & Plan Assessment & Plan (1) Type 2 diabetes mellitus: Code(s): E11.9 - Type 2 diabetes mellitus without complications Category: Medical Plan: 54-year-old with a history of type 2 diabetes with current A1c of 6.3%. She has lost about 6 lb over the past few years and reports that she does not really have much of an appetite and eats since small portion. At this point would hold off on any medications for diabetes and recommend that she see the heavy duty press operator not only to discuss a diabetes diet but dietary measures that may help with the chronic idiopathic diarrhea, GERD and irritable bowel syndrome. I reviewed the signs and symptoms of high sugar and gave her a handout in [place]ian. He will see her back in 3 months' time to recheck the A1c. She was asked to contact our office if she develops signs and symptoms of high sugar. The patient had an opportunity to ask questions regarding treatment plan. The patient expressed understanding and agreement with the above treatment plan. The patient is aware they should contact our office by phone for worsening glucose readings or for any low blood sugars which may warrant a change in diabetes medication. Compliance is encouraged with medications and any followup testing/consults which may have been ordered. Orders: Orders AMB Hemoglobin A1c Today E11.9 - Type 2 diabetes mellitus without complications, K58.1 - Irritable bowel syndrome with constipation Thyroid Stimulating Hormone Today E11.9 - Type 2 diabetes mellitus without complications Microalbumin, Random (w Creat) Today E11.9 - Type 2 diabetes mellitus without complications Creatinine Urine Today E11.9 - Type 2 diabetes mellitus without complications Basic Metabolic Panel Fasting Today E11.9 - Type 2 diabetes mellitus without complications Referrals Medical Nutrition Therapy Referral E11.9 - Type 2 diabetes mellitus without complications, K58.1 - Irritable bowel syndrome with constipation Patient Instructions: The patient was counseled to achieve a target A1C of 7% (154 avg). Fasting blood sugars should be 90-130 in the morning and less than 180 two hours after meals. Reviewed the relationship between poor diabetic control and the development of complications. Coding Level of Care Code New Pt Level 4 (29713) Complex EM visit Add On G2211 Diagnoses Type 2 diabetes mellitus E11.9 Time Spent (min) 45 Comment Time spent reviewing labs/provider notes, face to face, chart doc
[2024-11-13 08:55] VITALS: BP 110/68; PULSE 100; O2SAT 98
[2024-11-13 09:13] LABS: Glucose, Whole Blood 165 mg/dL (60-115)
--- OUTSIDE RECORDS SUMMARY | 2024-11-13 09:19 | XMS_ITS | Encounter Summary ---
Author Organization [employer] Address [address] [facility] [address] [place] [address] Care Team Providers Care Research Environmental Engineer Name Role Phone Farhana Horn Primary Care Provider [phone] Encounter Details Date Type Department Care Team [...] Care Team (Late st Contact Info) Description 01/29/2025 10:15 AM EDT Office Visit [facility] [address] [place] [address] Farhana Horn DO [address] [place] [address] documented as of this encounter Visit Diagnoses Not on filedocumented in this encounter Additional Health Concerns Assessment Noted Time PHQ-9 Depression Total Score: 4 12/09/19 24 10:18 AM EDT documented as of this encounter Care Teams Research Environmental Engineer Relationship Specialty Start Date End Date Farhana Horn DO [address] [place] [id number] PCP - General Family Medicine 09/09/18 documented as of this encounter
--- OUTSIDE RECORDS SUMMARY | 2024-11-13 09:19 | XMS_ITS | Encounter Summary ---
Author Organization [employer] Address [address] [facility] 7t [place] [address] Care Team Providers Care Relationship Advisor Name Role Phone KoryFarhana Primary Care Provider + [phone] Encounter Details Date Type Department Care Team (Late st Contact Info) Description 12/20/2023 Orders Only [facility] [address] [place] [address] ProviderPantera MD Social History Tobacco Use Types [...] the past 12 months, has t he [employer] gas, oil or water company threatened to [...] Description 01/29/2025 10:15 AM EDT Office Visit [facility] [address] [place] [address] Farhana Horn DO [address] [place] [address] documented as of this encounter Procedures Procedure [...] documented as of this encounter Care Teams Relationship Advisor Relationship Specialty Start Date End Date Farhana Horn DO [address] [place] [address] PCP - General Family Medicine 09/09/18 documented as of this encounter
--- OUTSIDE RECORDS SUMMARY | 2024-11-13 09:19 | XMS_ITS | Encounter Summary ---
Author Organization [employer] Address [address] [facility] [address] [place] [address] Care Team Providers Care Director Center Name Role Phone LizFarhana key Primary Care Provider + [phone] Reason for Visit * Reason Comments Diabetic Eye Exam Encounter Details Date Type Department Care Team ([facility] st Contact Info) Description 10/22/2024 2:00 PM EST Office Visit [facility] [address] [place] [address] Steven, Danette, OD [address] [place] [address] Diabetes type 2, no ocular involvement (CMS/HCC) [...] Description 01/29/2025 10:15 AM EDT Office Visit [facility] [address] [place] [address] Farhana Horn DO [address] [place] [address] Pending Results Name Type Priority Associated Diagnoses Date /Time OCT, Retina - OU - Both Eyes Ophthalmology Routine Vitelliform lesion of macula 10/22/2024 4:03 PM EST documented as of this encounter Visit Diagnoses Diagnosis Diabetes type 2, no ocular involvement ([facility])- Primary Vitelliform lesion of macula Headache, unspecified headache type Presbyopia documented in this encounter Additional Health Concerns Assessment Noted Time PHQ-9 Depression Total Score: 4 12/09/19 24 10:18 AM EDT documented as of this encounter Care Teams Director Center Relationship Specialty Start Date End Date Farhana Horn DO [address] [place] [id number] PCP - General Family Medicine 09/09/18 documented as of this encounter
--- OUTSIDE RECORDS SUMMARY | 2024-11-13 09:19 | XMS_ITS | Encounter Summary ---
Author Organization [employer] Address [address] [facility] [address] [place] [address] Care Team Providers Care Rigging Up Man Name Role Phone Farhana Horn DO Primary Care Provider + [phone] Encounter Details Date Type Department Care Team ([facility] st Contact Info) Description 08/08/2023 Telephone [facility] [address] [place] [address] Farhana Horn DO [address] [place] [address] Social History Tobacco Use Types Packs/Day Years [...] Description 01/29/2025 10:15 AM EDT Office Visit [facility] [address] [place] [address] Farhana Horn DO [address] [place] [address] documented as of this encounter Visit Diagnoses Not on filedocumented in this encounter Additional Health Concerns Assessment Noted Time PHQ-9 Depression Total Score: 24 023 11:05 AM EDT documented as of this encounter Care Teams Rigging Up Man Relationship Specialty Start Date End Date Farhana Horn DO [address] [place] [address] PCP - General Family Medicine 09/09/18 documented as of this encounter
--- OUTSIDE RECORDS SUMMARY | 2024-11-13 09:19 | XMS_ITS | Encounter Summary ---
Author Organization [employer] Address [address] [place] [address] 7t [place] [address] Care Team Providers Care Director Emergency Services Name Role Phone LizFarhana key Primary Care Provider [phone] Encounter Details Date Type Department Care Team [...] Description 01/29/2025 10:15 AM EDT Office Visit [facility] MEDICINE [address] [place], [place] [phone] Farhana Horn DO [address] [place], [place] [phone] documented as of this encounter Procedures Procedure Name Priority Date/Time Associated Diagnosis Comments HPV DNA, LOW/HIGH RISK Routine 10/27/2024 9:07 AM EST PAP SMEAR Routine 10/27/2024 9:07 AM EST documented in this encounter Results * Pap Smear (10/27/2024 9:07 AM EST) 10/27/2024 9:07 AM EST 10/27/2024 2:15 PM EST [facility] - 11/02/2024 3:56 PM EST ----- ------- Name: Tri Bowens ? Age/Sex: 53/F ? : 1970 Unit#: [id number] ?? Attend Dr: Fabio Morin MD ?Re10/27/24 ?Status: DEP REF ? Location: HO.LNP ?Disch: ? ----- ------- SPEC : [id number] ? RECD: 10/27/24 ? STATUS: ??SOUT ? REQ NUM: [id number] ? ANITA: 10/27/24 ? SUBM DR: Fabio [...] Copies To: ?? Farhana Horn DO ?? [facility] ?? [address] [facility] ?? [place] [address] ?? [phone] ?? Fabio Morin MD ?? [facility] ?? [address] ?? [place] [address] ?? [phone] ----- ------- Signed (signature on file) CORI Ortez (ASCP) 11/02/24 1556 ? ----- ------- ? END OF REPORT ? us Generic External Data Provider LAB CYTOLOGY ORDE QUE Final Result [facility] [address] [facility] [place] [address] [phone] * (ABNORMAL) HPV DNA, Low/High Risk (10/27/2024 9:07 AM EST) Pathologist [facility] HPV High Risk Positive(A) Negative [facility] HPV Genotype 16 Negative Negative [facility] HPV Genotype 18 Negative Negative [facility] Comment:HPV testing performe d at [facility] (CLIA#[id number]), [address] [place] [address].Testing for HPV was performed using the [employer] [...] Provider LAB BLOOD ORDERAB LES Final Result [facility] [address] [place] [phone] documented in this encounter Visit Diagnoses Not on filedocumented in this encounter Additional Health Concerns Assessment Noted Time PHQ-9 Depression Total Score: 4 12/09/19 24 10:18 AM EDT documented as of this encounter Care Teams Director Emergency Services Relationship Specialty Start Date End Date Farhana Horn DO [address] [place] [address] PCP - General Family Medicine 09/09/18 documented as of this encounter
--- OUTSIDE RECORDS SUMMARY | 2024-11-13 09:19 | XMS_ITS | Clinical Summary ---
Author Organization [employer] Address [address] [place] [address] 7[address] [place] [address] Care Team Providers Care Visual Merchandising Coordinator Name Role Phone Farhana Horn Primary Care Provider [phone] Allergies Active Allergy Reactions Criticality Noted Date Comments Lisinopril Cough 11/16/2010 Penicillins 09/07/2014 Medications * This document contains information received from the source organization and may not represent a complete record from that organization. pantoprazole (ProtoNix) 40 MG EC tabletIndications: Chronic [...] TIMES A DAY NEEDED FOR ABDOMINAL DISTENTION. 08/18/2 023 Active triamcinolone (Kenalog) 0.1 % ointment [...] 2 diabetes mellitus without complication, unspecified whether longitudinal float operator insulin use (CMS/HCC) Take 1 tablet by [...] FOR MIGRAINE. 20 tablet 2 025 Active bisacodyl (Dulcolax) 5 MG EC tablet Take 10 mg by mouth. 025 Active doxycycline (Monodox) 100 MG capsule TOME TIERA CAPSULA VIA ORAL DOS VECES AL JADYN 025 Active esomeprazole (NexIUM) [address] capsule TOME TIERA CAPSULA VIA ORAL CADA JADYN 025 Active guaiFENesin-codein e (Robitussin-AC) 100-10 MG/5ML syrup TAKE 5ML BY MOUTH CADA 6 HORAS LAMINE SEA NECESARIO FOR COUGH FOR 7 DAYS 025 Active levoFLOXacin (Levaquin) 750 MG tablet TOME TIERA TABLETA VIA ORAL CADA JADYN 025 Active Citrucel 500 MG tablet TAKE 1 TABLET BY MOUTH DAILY; TAKE IT WITH A FULL GLASS OF WATER. 025 Active metroNIDAZOLE (Flagyl) 500 MG tablet TOME TIERA TABLETA VIA ORAL CADA 8 HORAS 025 Active loratadine (Claritin) 10 MG tabletIndications: [...] 2023 -pap nml/HPV negative JUL 2020 with [employer] -DEXA with osteopenia JUL 2023 -STI/HIV screen [...] nightly -s/p optho eval Apr 2023 at [facility] -foot exam next visit* Allergic rhinitis 03/15/2023 [...] -f/u with neurology as scheduled -advised contact [facility] if no improvement Irritable bowel syndrome 08/22/2015 [...] 01/29/2023 03/15/2023 Elevated fasting glucose 08/22/201503/2023 Encounters * This document contains information received from the source organization and may not represent a complete record from that organization. Date Type Department Care Team Description 11/13/2024 Orders Only GENERIC EXTERNAL DATA DEPARTMENT Provider, Generic External Data 11/09/2024 Telephone [facility] MED & PEDS [address] [place] [address] Farhana Horn DO Care Coordination ([facility] initial assessment/ enrollment) 11/05/2024 Patient Outreach [facility] [address] [place] [address] Farhana Horn DO Care Coordination (Outreach) 11/04/2024 10:00 AM EST Office Visit [address] [address] Farhana Horn DO Generalized abdominal pain (Primary Dx); Cough with hemoptysis; Generalized weakness; Type 2 diabetes mellitus without complication, without long-term current use of insulin ([facility]) 11/04/2024 Orders Only [facility] External Provider, [facility] 11/04/2024 Travel 10/29/2024 Orders Only GENERIC EXTERNAL DATA DEPARTMENT Provider, Generic External Data 10/29/[address] [address] Farhana Horn DO Nurse Triage 10/29/[address] [address] Farhana Horn DO Appointment Request 10/27/2024 Orders Only GENERIC EXTERNAL DATA DEPARTMENT Provider, Generic External Data 10/23/2024 Refill [facility] MEDICINE [address] [place] [address] Farhana Horn, Seasonal allergic rhinitis, unspecified trigger 10/22/2024 2:00 PM EST Office Visit [facility] OPTOMETRY [address] [place] [address] Steven, Danette, OD Diabetes type 2, no ocular involvement ([facility]) (Primary Dx); Vitelliform lesion of macula; Headache, unspecified headache type; Presbyopia 10/22/2024 Travel 10/21/2024 Travel 10/15/2024 Telephone [facility] MEDICINE [address] [place] [address] Sudha Doss [place] Recall Letter (Recall Letter sent 10/15/24.) 09/21/2024 Refill [facility] CHC MED & PEDS [address] [place] [address] Farhana Horn DO 09/08/2024 Refill [facility] MEDICINE [address] [place] [address] Farhana Horn DO 09/04/2024 Orders Only GENERIC [...] 11/04/2024 10:08 AM EST Plan of Treatment Upcoming Encounters Date Type Department Care Team (Late st Contact Info) Description 01/29/2025 10:15 AM EDT Office Visit [facility] MEDICINE [address] [place] [address] Farhana Horn DO [address] [place], [place] [phone] Health Maintenance Due Date Last Done Comments [...] 01/25/2021 Lipid Panel 07/26/2024 07/26/2023, 06/11, 01/25/2021 Colposcopy 2024 Depression Screening 12/08/2024 12/09/2023, 12/09/19 Diabetes: Hemoglobin A1C 05/04/2025 025, 04/14/2024, 12/09/2023, Additional history exists Mammogram 09/23/2025 09/23/2024, 10/2023, 09/07/2022, Additional history exists Alcohol/Substance Use Screening 11/04/2025 11/04/2024 SDOH Screening 11/05/2025 11/05/2024 Tobacco Screening 11/10/2025 11/10/2024 Eye Exam 10/22/2026 10/22/2024, 10/10, 10/22/2024, Additional [...] Procedure Name Priority Date/Time Associated Diagnosis Comments GLUCOSE, WHOLE BLOOD Routine 11/13/2024 9:04 AM EST SARS COV2/INFLUENZA A/B AND RSV RNA QL NAAT Routine 11/04/2024 2:59 PM EST CTA CHEST PE PROTOCAL Routine 11/04/2024 1:[address] ABDOMEN PELVIS W CONTRAST Routine 11/04/2024 11:43 AM EST POCT GLUCOSE Routine 11/04/2024 10:14 AM EST Type 2 diabetes mellitus without complication, without long-term current use of insulin (CMS/HCC) POCT GLYCATED HEMOGLOBIN, TOTAL Routine 11/04/2024 10:14 [...] Recently Relevant to Health Maintenance Results * (ABNORMAL) Glucose, Whole Blood (11/13/2024 9:04 AM EST) Glucose, Whole Blood 165(H) 60 - 115 mg/dL [facility] Comment:METER #: [id number] Testing performed in the Endocrinology Department [address] , [address], [facility]. 11/13/2024 9:04 AM EST 11/13/2024 9:12 AM EST us Generic External Data Provider LAB BLOOD ORDERAB LES Final Result [facility] [address] [place] [phone] * (ABNORMAL) SARS-CoV-2 RNA, Influenza A/B, and RSV RNA, Ql NAAT (11/04/2024 2:59 PM EST) Only the most recent of2 resultswithin the time period is included. Influenza A PCR POSITIVE(A) Negative [facility] Influenza B PCR NEGATIVE Negative [facility] Resp Syncy Virus RNA Qual PCR NEGATIVE Negative [facility] SARS COV2 PCR NEGATIVE Negative [facility] Comment:All test results mus t [...] use by authorized laboratories.Testing performed on the [employer] GeneXpert utilizingreal-time RT-PCR.All SARS CoV2 and positive influenza A/B results arereported to [facility]. 11/04/2024 2:59 PM EST 11/04/2024 3:03 PM EST us Generic External Data Provider LAB MICROBIOLOGY - GENERAL ORDERABLES Final Result [facility] [address] [place] [phone] * CTA Chest PE Protocal (11/04/2024 1:16 PM EST) Anatomical Region Laterality Modality Body, Chest Computed Tomogra phy 11/04/2024 1:16 PM EST Narrative 11/04/2024 1:38 PM EST ? [facility] ?[address] [place] [address]. ?[place] [address] ? CT Scan Report ? Signed ? Patient: Kwan,Tri ?MR#: [id number] ?? 63 ? : 1970 ?Acct:[id number] ? Age/Sex: 54 / F ?ADM Date: 02/26/25 ? Loc: HO.ED ? Attending Dr: ? Ordering Physician: Brenden Denton MD ?? Date of Service: 11/04/24 ?? Procedure(s): CT angio chest PE protocol ?? Accession Number(s): [id number] ? cc: Brenden Denton MD; Farhana Horn DO ? Report Number: ?? [id number]: Total DLP = ??278.00 mGy-cm ?? EXAMINATION: [...] DD/ 1316 ? TD/TT: 11/04/24 1316 ? Workers Compensation Examiner: ? Procedure Note Donotjonnainterpreter, Image - 11/04/[address] [address] [address] Scan Report Signed Patient: Wang Bowens#: [id number] 63 : 1970Acct:[id number] Age/Sex: 54 / FADM Date: 11/04/24 Loc: .ED Attending Dr: Ordering Physician: Brenden Denton MD Date of Service: 11/04/24 Procedure(s): CT angio chest PE protocol Accession Number(s): [id number] cc: Brenden Denton MD; Farhana Horn DO Report Number: [id number]: Total DLP = 278.00 mGy-cm EXAMINATION: CT [...] Yariel Brooks MD 11/04/2024 01:34 PM EST Dictated By: Yariel Buchanan MD Signed By: <Electronically signed by Yariel Garcia MDin OV> 11/04/24 1334 DD/ 1316 TD/TT: 11/04/24 1316 Workers Compensation Examiner: [facility] External Provider IMG CT PROCEDURES Final Result * CT Abdomen Pelvis w/ Contrast (11/04/2024 11:43 AM EST) Only the most recent of2 resultswithin the time period is included. Anatomical Region Laterality Modality Body, Pelvis, Abdomen Computed T omography 11/04/2024 11:4 3 AM EST Narrative 11/04/2024 1:32 PM EST ? [facility] ?[address] ?[place] [address] ? CT Scan Report ? Signed ? Patient: Kwan,Tri ?MR#: [id number] ?? 63 ? : 1970 ?Acct:[id number] ? Age/Sex: 54 / F ?ADM Date: 11/04/24 ? Loc: HO.ED ? Attending Dr: ? Ordering Physician: Brenden Denton MD ?? Date of Service: 02/26/25 ?? Procedure(s): CT abdomen pelvis w IV con ?? Accession Number(s): [id number] ? cc: Brenden Denton MD; Farhana Horn DO ? Report Number: ?? [id number]: Total DLP = ??462.00 mGy-cm ?? EXAMINATION: [...] DD/ 1143 ? TD/TT: 11/04/24 1316 ? Workers Compensation Examiner: ? Procedure Note Juice, Image - 11/04/[address] [place] [address] [address] Scan Report Signed Patient: Wang Bowens#: [id number] 63 : 1970Acct:[id number] Age/Sex: 54 / FADM Date: 11/04/24 Loc: HO.ED Attending Dr: Ordering Physician: Brenden Denton MD Date of Service: 11/04/24 Procedure(s): CT abdomen pelvis w IV con Accession Number(s): [id number] cc: Brenden Denton MD; Farhana Horn DO Report Number: [id number]: Total DLP = 462.00 mGy-cm EXAMINATION: CT [...] 11/04/24 1328 DD/ 1143 TD/TT: 11/04/24 1316 Workers Compensation Examiner: [facility] External Provider IMG CT PROCEDURES Final Result * (ABNORMAL) POCT HGB A1C (11/04/2024 10:14 AM EST) Hemoglobin A1C 6.5(A) 4.0 - 6.0 % QC Media Lot # [id number] Lot# Expiration Date Blood 11/04/2024 10:1 4 AM EST [facility] POINT OF CARE TEST ENTER/PAUL T ORDERABLES Final Result * POCT Glucose (11/04/2024 10:14 AM EST) Glucose Blood, POC 141 60 - 200 mg/dL [facility] Lot # [id number] Lot# Expiration Date 327322 Blood Capillary blood specimen / Unknown 11/04/2024 10:14 AM EST Farhana Horn DO POINT OF CARE TEST ENTER/PAUL T ORDERABLES Final Result * (ABNORMAL) Urinalysis, Complete, with Reflex to Culture (10/29/2024 11:01 PM EST) Color Urine Dark Yellow [facility] Appearance Urine Cloudy [facility] PH 5.5 5.0 - 9.0 [facility] Glucose Urine UA Negative Negative mg/dL [facility] Urine Blood Negative Negative [facility] Specific [place] - Urine >=1.030(H) 1.005 - 1.025 [facility] Urine Protein 30 (1+)(A) Neg-Trace mg/dL [facility] Urine Ketones 15 Negative mg/dL [facility] Nitrite Urine Negative Negative [facility] Leukocyte Esterase Urine Trace(A) Negative [facility] RBC Urine 0-2 0 - 2 /HPF [facility] Urine WBC 0-5 0 - 5 /HPF [facility] Urine Squamous Epithelial Cell 3-5 0 - 2 /HPF [facility] Urine Bacteria 1+ None Seen [facility] Hyaline Casts, Urine 3-5 0 - 2 /LPF [facility] 10/29/2024 11:0 1 PM EST 10/29/2024 11:12 PM EST Narrative [facility] - 10/29/2024 11:24 PM EST Urine, Clean Catch us Generic External Data Provider LAB URINE ORDERAB LES Final Result Performing Organization Address City/State/[facility] Co de Phone Number [facility] [address] [place] [phone] * (ABNORMAL) CBC auto differential (10/29/2024 12:06 PM EST) White Blood Count 7.4 4.8 - 10.8 X10*3/uL [facility] Red Blood Count 4.83 4.20 - 5.50 X10*6/uL [facility] Hemoglobin 13.3 12.0 - 16.0 g/dl [facility] Hematocrit 40.4 37.0 - 47.0 % [facility] Mean Corpuscular Volume 83.6 80.0 - 98.0 fL [facility] Mean Corpuscular Hemoglobin 27.5 27.0 - 33.0 pg [facility] Mean Corpuscular HGB Conc 32.9 31.0 - 35.0 g/dl [facility] Red Cell Distribution Width 13.4 11.0 - 16.0 % [facility] Platelet Count 302 160 - 400 X10*3/uL [facility] Mean Platelet Volume 8.0(L) 9.4 - 12.3 fL [facility] Neutrophils Percent Auto 45.2 45 - 73 % [facility] Imm Gran Pct Auto 0.1 0.0 - 0.4 % [facility] Lymphocytes Percent Auto 40.7(H) 20 - 40 % [facility] Monocytes Percent Auto 11.2(H) 2 - 11 % [facility] Eosinophils Percent Auto 2.4 0 - 4 % [facility] Basophils Percent Auto 0.4 0 - 2 % [facility] NRBC Pct Auto 0.0 0.0 - 0.2 /100WBC [facility] Neutrophils Absolute Auto 3.3 2.0 - 8.3 x10*3/uL [facility] Imm Gran Abs Auto 0.01 0.00 - 0.03 X10*3/uL [facility] Lymphocytes Absolute Auto 3.0 1.2 - 4.9 X10*3/uL [facility] Monocytes Absolute Auto 0.8 0.1 - 1.2 X10*3/uL [facility] Eosinophils Absolute Auto 0.2 0.0 - 0.4 X10*3/uL [facility] Basophils Absolute Auto 0.0 0.0 - 0.2 X10*3/uL [facility] NRBC Abs Auto 0.000 0.0 - 0.012 X10*3/uL [facility] 10/29/2024 12:0 6 PM EST 10/29/2024 12:09 PM EST us Generic External Data Provider LAB BLOOD ORDERAB LES Final Result [facility] [address] [place] [address] [phone] * (ABNORMAL) Prothrombin Time-INR (10/29/2024 12:06 PM EST) [facility] Prothrombin Time 12.6(H) 10.9 - 12.4 SEC [facility] INTERNATIONAL NORM RATIO 1.1 0.9 - 1.1 [facility] Comment:INTERNATIONAL NORMAL IZED RATIO (INR) [...] ORDERAB LES Final Result Performing Organization Address [facility] de Phone Number [facility] [address] [place] [phone] * Magnesium (10/29/2024 12:06 PM EST) [facility] Magnesium 1.9 1.6 - 2.6 mg/dL [facility] 10/29/2024 12:0 6 PM EST 10/29/2024 12:09 PM EST Built In External Data Provider LAB BLOOD ORDERAB LES Final Result Performing Organization Address [facility] de Phone Number [facility] [address] [place] [phone] * (ABNORMAL) Comprehensive Metabolic Panel (10/29/2024 12:06 PM EST) [facility] Sodium 140 135 - 145 mmol/L [facility] Potassium 3.7 3.3 - 5.1 mmol/L [facility] Chloride 112(H) 96 - 108 mmol/L [facility] Carbon Dioxide 21(L) 22 - 29 mmol/L [facility] Anion Gap 11(L) 12 - 20 [facility] Urea Nitrogen (BUN) 19(H) 9 - 16 mg/dL [facility] Creatinine, Serum 0.79 0.5 - 1.4 mg/dL [facility] Creatinine Clr Calc Pharmacy 68.7 [facility] Comment:Provided height and weight: 152.4 cm,68.6 kg.eGFR (calculated from the MDRD study equation) and eCrCl(calculated from the Cockcroft-Gault equation) are based ondifferent parameters and may not yield comparable results.If eCrCl result is absurd, please check patient'sheight/weight. Estimated Glomerular Filt Rate >60 [facility] Comment:Chronic Kidney Disea se: Estimated GFR < 60 mL/min/1.95d7Qtpsym Kidney Disease: Estimated GFR < 15 mL/min/1.73m2 Glucose 123(H) 60 - 115 mg/dL [facility] Calcium 9.3 8.4 - 10.2 mg/dL [facility] Bilirubin, Total 0.4 0.0 - 1.0 mg/dL [facility] Aspartate Amino Transferase 28 5 - 31 U/L [facility] Alanine Aminotransferase 41(H) 0 - 31 U/L [facility] Total Protein 8.2(H) 6.5 - 8.0 g/dL [facility] Albumin Level 4.2 3.5 - 5.0 g/dL [facility] Alkaline Phosphatase 140(H) 39 - 117 U/L [facility] 10/29/2024 12:0 6 PM EST 10/29/2024 12:09 PM EST us Generic External Data Provider LAB BLOOD ORDERAB LES Final Result [facility] [address] [place] [phone] [phone] * (ABNORMAL) HPV DNA, Low/High Risk (10/27/2024 9:07 AM EST) HPV High Risk Positive(A) Negative [facility] HPV Genotype 16 Negative Negative [facility] HPV Genotype 18 Negative Negative [facility] Comment:HPV testing performe d at [facility] (CLIA#[id number]), [address] [place] [phone].Testing for HPV was performed using the Milana [...] ORDERAB LES Final Result Performing Organization Address City/State/[facility] Co de Phone Number [facility] [address] [place] [phone] * Pap Smear (10/27/2024 9:07 AM EST) 10/27/2024 9:07 AM EST 10/27/2024 2:15 PM EST Narrative [facility] - 11/02/2024 3:56 PM EST ----- ------- Name: Tri Bowens ? Age/Sex: 53/F ? : 1970 Unit#: [id number] ?? Attend Dr: Fabio Morin MD ?Re10/27/24 ?Status: DEP REF ? Location: HO.LNP ?Disch: ? ----- ------- SPEC : [id number] ? RECD: 10/27/24 ? STATUS: ??SOUT ? REQ NUM: [id number] ? ANITA: 10/27/24 ? SUBM DR: Fabio [...] Copies To: ?? Farhana Horn DO ?? [facility] ?? [address] ?? [place] [address] ?? [phone] ?? Fabio Morin MD ?? [facility] ?? [address] ?? [place] [address] ?? [phone] ----- ------- Signed (signature on file) [facility] 11/02/24 4266 ? ----- ------- ? END OF REPORT ? us Generic External Data Provider LAB CYTOLOGY BROOKE GREY Final Result [facility] [address] [facility] [place] [address] [phone] * BI Mammogram Screening Tomosynthesis Bilateral (09/23/2024 10:30 AM EST) Anatomical Region Laterality Modality Breast Bilateral Mammography 09/23/2024 10:3 0 AM EST Narrative 10/04/2024 9:14 AM EST ? [facility] ? [address] ?[place] [address] ? Mammography Report ? Signed ? Patient: Kwan,Tri ?MR#: [id number] ?? 63 ? : 1970 ?Acct:[id number] ? Age/Sex: 53 / F ?ADM Date: 09/23/24 ? Loc: HO.MAMMO ? Attending Dr: Farhana Horn DO ? Ordering Physician: Farhana Horn DO ?Results: 1N ?? egative ? Date of Service: 09/23/24 ?Follow Up: 1 Year From Orig ?? inal Mammogram ? Procedure(s): MM tomosynthesis screening BI ?? Accession Number(s): [id number] ? cc: Farhana Horn DO ? EXAMINATION: [...] DD/ 1030 ? TD/TT: 09/23/24 1041 ? Workers Compensation Examiner: ? Procedure Note Dondavida, Image - 10/04/2024 [facility] [address] [place] [address] Mammography Report Signed Patient: Tri BowensMR#: [id number] 63 : 1970Acct:[id number] Age/Sex: 53 / FADM Date: 09/23/24 Loc: HO.MAMMO Attending Dr: Farhana Horn DO Ordering Physician: Farhana Hornults: 1N egative Date of Service: 09/23/24Follow Up: 1 Year From Orig inal Mammogram Procedure(s): MM tomosynthesis screening BI Accession Number(s): [id number] cc: Farhana Horn DO EXAMINATION: MM SCREENING [...] 10/04/24 0911 DD/ 1030 TD/TT: 09/23/24 1041 Workers Compensation Examiner: Farhana Horn DO IMG BI PROCEDURES Edited Res ult - Final * Hematoxylin and Eosin Stain (09/04/2024 10:52 AM EST) 09/04/2024 10:5 2 AM EST 09/04/2024 11:33 AM EST [facility] - 09/11/2024 8:22 AM EST ----- ------- Name: Tri Bowens ? Age/Sex: 53/F ? : 1970 Unit#: [id number] ?? Attend Dr: Nani Bonner MD ?Re09/04/24 ?Status: DEP [facility] ? Location: HO.SSS ?Disch: ? ----- ------- SPEC : [id number] ? RECD: 09/04/24 ? STATUS: ??SOUT ? REQ NUM: [id number] ? ANITA: 09/04/24-105 ? SUBM DR: Nani Bonner MD ? [...] ? Age/Sex: 53/F ? : 1970 Unit#: [id number] ?? Attend Dr: Nani Bonner MD ?Re09/04/24 ?Status: DEP SDC ? Location: HO.SSS ?Disch: ? ----- ------- SPEC : [id number] ? RECD: 09/04/24 ? STATUS: ??SOUT ? REQ NUM: [id number] ? ANITA: 09/04/24-2 ? SUBM DR: Nani Bonner MD ? ENTERED: ??09/04/241150 ?SP TYPE: Surgical ? OTHR DR: Farhana [...] submitted in toto in a cassette labeled CSalma BARTLETT Special studies ordered and performed: Immunostain for H. pylori on A1. Copies To: ?? Farhana Horn DO ?? [facility] ?? [address] ?? [place] [address] ?? [phone] ?? Nani Bonner MD ?? [facility] ?? [address] ?? [place] ?? [phone] ?? [email or web address] ----- ------- Signed (signature on file) Deb Waldron 09/07/24 1557 ? ----- ------- ? END OF REPORT ? us Generic External Data Provider LAB BLOOD ORDERAB LES Final Result [facility] [address] [place] [address] [phone] * Glucose, Whole Blood (09/04/2024 10:10 AM EST) Glucose, Whole Blood 107 60 - 115 mg/dL [facility] Comment:METER #: [id number] 09/04/2024 10:1 0 AM EST 09/04/2024 10:18 AM EST us Generic External Data Provider LAB BLOOD ORDERAB LES Final Result Performing Organization Address City/[facility] Co de Phone Number [facility] [address] [place] [address] [phone] * Albumin, Random Urine W/Creatinine (07/26/2023 12:26 PM EST) Creatinine, Urine 182.16 mg/dL [facility] Microalbumin Urine 14.0 mg/L [facility] Microalbum Creatinine Ratio Ur 7.6 <30 ug/mg cr [facility] Comment:Albumin/Creatinine R atio Reference Ranges: Normal: < 30 ug/mg creatinine Microalbuminuria: 30 - 300 ug/mg creatinineClinical Albuminuria: > 300 ug/mg creatinine 07/26/2023 12:2 6 PM EST 07/26/2023 1:28 PM EST us Farhana Horn DO LAB URINE ORDERABLES Final R esult Performing Organization Address City/[facility] Co de Phone Number [facility] [address] [place] [address] [phone] * (ABNORMAL) Lipid Panel, Standard (07/26/2023 12:23 PM EST) Triglycerides 132 <150 mg/dL [facility] Comment:Desirable Triglyceri de: less than 150 mg/dLBorderline High Triglyceride 150-199 mg/dLHigh Triglyceride: 200-499 mg/dLVery High Triglyceride: greater than or equal to 5OO mg/dL Cholesterol 150 <200 mg/dL [facility] Comment:Desirable Cholestero l: less than 200 mg/dLBorderline High Cholesterol: 200-239 mg/dLHigh Cholesterol: greater than 239 mg/dL LDL Cholesterol Calculated 85 <100 mg/dL [facility] Comment:Desirable LDL: less than 100 mg/dLNear Optimal/Above Optimal LDL: 110- 129 mg/dLBorderline High LDL: 130-159 mg/dLHigh LDL: 160-189 mg/dLVery High LDL: greater than or equal to 190 mg/dL HDL Cholesterol 39(L) >40 mg/dL [facility] Comment:Desirable HDL: great er than 40 mg/dL Note: This HDL assay may give artificially low results in patients with liver disease. Blood Venous blood specimen / Unknown 07/26/2023 12:23 PM EST 07/26/2023 1:26 PM EST Farhana Horn DO LAB BLOOD ORDERABLES Final R esult Performing Organization Address [facility] Co de Phone Number [facility] [address] [place] [phone] * HEPATITIS C AB W/REFL TO [...] a test for HCV RNA (test code 45081) is suggested. ?? For additional information please refer to http://education.marshallindex/faq/ULA16v3 (This link is being provided for informational/ educational purposes only.) ?? 07/09/2022 8:24 AM EDT Farhana Horn DO HISTORICAL/NON ORDERABLE LAB S Final Result Performing Organization Address City/[facility]/ZIP Co de Phone Number [facility] [...] ? For additional information please refer to http://education.marshallindex/faq/IWK218 (This link is being provided for informational/ [...] Most Recently Relevant to Health Maintenance Insurance [facility] C3 * Guarantor: Tri Bowens I Account Type Relation to Patient Date of Phone Billing Address Personal/Family Self [address] Care Teams Visual Merchandising Coordinator Relationship Specialty Start Date End Date Farhana Horn DO [address] [place] [phone] PCP - General Family Medicine 09/09/18
--- OUTSIDE RECORDS SUMMARY | 2024-11-13 09:19 | XMS_ITS | Encounter Summary ---
Author Organization [employer] Address 75 [facility] 7t [place] [address] Care Team Providers Care Benzene Operator Name Role Phone Farhana Horn DO Primary Care Provider + [phone] Reason for Visit * Reason Comments Med Refill Encounter Details Date Type Department Care Team ([facility] st Contact Info) Description 10/23/2024 Refill [facility] MEDICINE [address] [place] [address] Farhana Horn DO [address] [place] [address] Seasonal allergic rhinitis, unspecified trigger Social History [...] Description 01/29/2025 10:15 AM EDT Office Visit [facility] MEDICINE [address] [place] [address] Farhana Horn DO [address] [place] [address] documented as of this encounter Visit Diagnoses Diagnosis Seasonal allergic rhinitis, unspecified trigger documented in this encounter Additional Health Concerns Assessment Noted Time PHQ-9 Depression Total Score: 4 12/09/19 24 10:18 AM EDT documented as of this encounter Care Teams Benzene Operator Relationship Specialty Start Date End Date Farhana Horn DO [address] [place] [phone] PCP - General Family Medicine 09/09/18 documented as of this encounter
--- OUTSIDE RECORDS SUMMARY | 2024-11-13 09:19 | XMS_ITS | Encounter Summary ---
Author Organization [employer] Address 75 [facility] 7t [place] [address] Care Team Providers Care Platinumsmith Name Role Phone Farhana Horn Primary Care [...] Description 01/29/2025 10:15 AM EDT Office Visit [facility] MEDICINE [address] [place] [address] Farhana Horn DO [address] [place] [address] documented as of this encounter Visit Diagnoses Not on filedocumented in this encounter Additional Health Concerns Assessment Noted Time PHQ-9 Depression Total Score: 4 12/09/19 24 10:18 AM EDT documented as of this encounter Care Teams Platinumsmith Relationship Specialty Start Date End Date Farhana Horn DO [address] [place] [phone] PCP - General Family Medicine 09/09/18 documented as of this encounter
--- OUTSIDE RECORDS SUMMARY | 2024-11-13 09:20 | XMS_ITS | Encounter Summary ---
Author Organization [employer] Address 75 [facility] 7t [place] [address] Care Team Providers Care Ordnance Handler Name Role Phone Farhana Horn DO Primary Care Provider + [phone] Reason for Visit * Reason Onset Date Comments Nurse Triage 10/29/2024 Encounter Details Date Type Department Care Team ([facility] st Contact Info) Description 10/29/2024 Telephone [facility] MEDICINE [address] [place] [address] Farhana Horn DO [address] [place] [address] Nurse Triage Social History Tobacco Use Types [...] 10:17 AM EST Sent to team for [facility] status check PRN. * Telephone Encounter - Chanel Colindres RN - 10/29/2024 10:11 AM EST No hadoop developer needed as this financial underwriter speaks Frisian. Call returned to Tri Bowens to triage [...] hours. Pt advised of disposition, agrees to [facility] now for exam. Protocol Used: Vomiting [...] Description 01/29/2025 10:15 AM EDT Office Visit [facility] MEDICINE [address] [place] [address] Farhana Horn DO [address] [place] [address] documented as of this encounter Visit Diagnoses Not on filedocumented in this encounter Additional Health Concerns Assessment Noted Time PHQ-9 Depression Total Score: 4 12/09/19 24 10:18 AM EDT documented as of this encounter Care Teams Ordnance Handler Relationship Specialty Start Date End Date Farhana Horn DO [address] [place] [address] PCP - General Family Medicine 09/09/18 documented as of this encounter
--- OUTSIDE RECORDS SUMMARY | 2024-11-13 09:20 | XMS_ITS | Encounter Summary ---
Author Organization [employer] [facility] Address [address] [place] [address] 7t [place] [address] Care Team Providers Care Skilled Trades Teacher Name Role Phone Farhana Horn DO Primary Care Provider Encounter Details Date Type Department Care Team (Latest Contact Info) Description 10/16/2019 Abstract [facility] Dental, Provider, DDS Social History Tobacco [facility] [address] [place] [address] Farhana Horn DO [address] [place] [address] documented as of this encounter Visit Diagnoses Not on filedocumented in this encounter Care Teams Skilled Trades Teacher Relationship Specialty Start Date End Date Farhana Horn DO [address] [place] [address] PCP - General Family Medicine 09/09/18 documented as of this encounter
--- OUTSIDE RECORDS SUMMARY | 2024-11-13 09:20 | XMS_ITS | Encounter Summary ---
Author Organization [employer] Address [address] [facility] 7t [place] [address] Care Team Providers Care Tire Fabricator Name Role Phone Farhana Horn DO Primary Care Provider + [phone] Reason for Visit * Reason Onset Date Comments Care Coordination 11/09/2024 C3CM initial a ssessment/ enrollment Encounter Details Date Type Department Care Team ([facility] st Contact Info) Description 11/09/2024 Telephone [facility] MED & PEDS [address] [place] [address] Farhana Horn DO [address] [facility] [place] [address] Care Coordination (C3 initial assessment/ enrollment) Social History Tobacco Use Types Packs/Day Years [...] is your housing situation today? I have maglaie miguel 11/04/[address] you [...] encounter Miscellaneous Notes * Telephone Encounter - Yudy Ruiz RN - 11/09/2024 1:02 PM EST Pt is requesting for [facility] referral for depression * Telephone Encounter - Yudy Ruiz RN - 11/09/2024 12:57 PM EST Yudy Ruiz RN placed outbound call to patient for agreed upon time for initial assessment for enrollment into Adult Care Management Program. Patient's name, , and address were verified. Pt is a 54-year-old female with medical history significant for essential hypertension, Type 2 DM and major depression. Pt states she has an upcoming appt with her OBGYN on 12/02/2024, Urology on 01/25/2025 and endocrinology on 11/13/2024. According to pt, she has a form of transportation to her appointments. 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 Pt states she owns on her utilities. Pt reports h/o colitis and eats small portion of food but denies any special diet. CM educated pt on diabetic diet and how it helps control DM. Pt reports non-compliant with blood sugar check. Pt states she stopped the trulicity due to stomach upset and was recommended by her GI to stop medication. CM advised pt to check BG at least TID and go with the BG log to her upcoming appointment so that the catalyst impregnator can review it. Pt however reports compliant with the rest of her medications. Pt states she will like PCP to send Rx to the pharmacy for BP machine so that she can check her BP at home. Pt c/o frequent headaches and takes Fiorecept and Gabapentin for the pain with good effect. Pt states she feels safe in her home and denies drinking, smoking or taking any illegal drugs. Pt reports occasional depression and denies any SI/HI. Pt agreed for CM to refer pt to N. Pt advised on the number for crisis and advisedto call when needed. Pt states her daughter is her HCP. Pt expressed personal goals to be connectedto a therapy for depression. Care management program explained and contact information given. Patient verbalizes understanding, and able to repeat back to policy writer sales. A follow up call will be placed within 10 days, patient agrees with plan. RICH Ruiz RN, provided notification to PCP Dr. Horn of patient's enrollment into C3 Complex Care Program. RICH Ruiz RN, completed care plan and sent to HIM to be scanned into the medical record. PCP notified and awaiting review from provider. documented in this encounter Plan of Treatment Upcoming Encounters Date Type Department Care Team (Late st Contact Info) Description 01/29/2025 10:15 AM EDT Office Visit [facility] MEDICINE [address] [place] [address] Farhana Horn DO 230 [place] [address] documented as of this encounter Visit Diagnoses Not on filedocumented in this encounter Additional Health Concerns Assessment Noted Time PHQ-9 Depression Total Score: 4 12/09/19 24 10:18 AM EDT documented as of this encounter Care Teams Tire Fabricator Relationship Specialty Start Date End Date Farhana Horn DO [address] [place] [address] PCP - General Family Medicine 09/09/18 documented as of this encounter
--- OUTSIDE RECORDS SUMMARY | 2024-11-13 09:20 | XMS_ITS | Encounter Summary ---
Author Organization [employer] Address [address] [place] [address] 7t [place] [address] Care Team Providers Care Topper Press Operator Name Role Phone LizFarhana key Primary Care Provider [phone] Encounter Details Date Type Department Care Team [...] Description 01/29/2025 10:15 AM EDT Office Visit [facility] MEDICINE [address] [place], [place] [phone] Farhana Horn, [address] [place], [place] [phone] documented as of this encounter Procedures Procedure [...] EST Narrative 10/29/2024 11:54 PM EST ? [facility] ?[address] ?[place] [address] ? CT Scan Report ? Signed ? Patient: Kwan,Tri ?MR#: [id number] ?? 63 ? : 1970 ?Acct:[id number] ? Age/Sex: 54 / F ?ADM Date: 10/29/24 ? Loc: HO.ED ? Attending Dr: ? Ordering Physician: Matt Nelson ?? Date of Service: 10/29/24 ?? Procedure(s): CT abdomen pelvis w IV con ?? Accession Number(s): [id number] ? cc: Farhana Horn DO; Matt Nelson ? Report Number: ?? [id number]: Total DLP = ??539.00 mGy-cm ? CLINICAL [...] phenomenon at transitional ?? lumbosacral junction with taqgynve-xx-oigfdg bilateral facet arthropathy ?? and mild spinal [...] DD/ 52 ? TD/TT: 10/29/24 2353 ? Mechanical Lead: ? 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 with hbpwwdfm-wm-sozarm bilateral facet arthropathy and mild spinal stenosis [...] in OV> 10/29/242352 DD/ 52 TD/TT: 10/29/242352 Mechanical Lead: [facility] External Provider IMG CT PROCEDURES Final Result * (ABNORMAL) Urinalysis, Complete, with Reflex to Culture (10/29/2024 11:01 PM EST) Color Urine Dark Yellow [facility] Appearance Urine Cloudy [facility] PH 5.5 5.0 - 9.0 [facility] Glucose Urine UA Negative Negative mg/dL [facility] Urine Blood Negative Negative [facility] Specific [place] - Urine >=1.030(H) 1.005 - 1.025 [facility] Urine Protein 30 (1+)(A) Neg-Trace mg/dL [facility] Urine Ketones 15 Negative mg/dL [facility] Nitrite Urine Negative Negative [facility] Leukocyte Esterase Urine Trace(A) Negative [facility] RBC Urine 0-2 0 - 2 /HPF [facility] Urine WBC 0-5 0 - 5 /HPF [facility] Urine Squamous Epithelial Cell 3-5 0 - 2 /HPF [facility] Urine Bacteria 1+ None Seen [facility] Hyaline Casts, Urine 3-5 0 - 2 /LPF [facility] 10/29/2024 11:0 1 PM EST 10/29/2024 11:12 PM EST Narrative [facility] - 10/29/2024 11:24 PM EST Urine, Clean Catch Generic External Data Provider LAB URINE ORDERAB LES Final Result Performing Organization Address [facility] Co de Phone Number [facility] [address] [place] [phone] * SARS-CoV-2 RNA, Influenza A/B, and RSV RNA, Ql NAAT (10/29/2024 12:06 PM EST) Influenza A PCR NEGATIVE Negative [facility] Influenza B PCR NEGATIVE Negative [facility] Resp Syncy Virus RNA Qual PCR NEGATIVE Negative [facility] SARS COV2 PCR NEGATIVE Negative [facility] Comment:All test results mus t [...] use by authorized laboratories.Testing performed on the Bin1 ATE GeneXpert utilizingreal-time RT-PCR.All SARS CoV2 and positive influenza A/B results arereported to [facility]. 10/29/2024 12:0 6 PM EST 10/29/2024 12:09 PM EST Generic External Data Provider LAB MICROBIOLOGY - GENERAL ORDERABLES Final Result Performing Organization Address [facility]/ZIP Co de Phone Number [facility] [address] [place] [phone] * Magnesium (10/29/2024 12:06 PM EST) Magnesium 1.9 1.6 - 2.6 mg/dL [facility] 10/29/2024 12:0 6 PM EST 10/29/2024 12:09 PM EST us Generic External Data Provider LAB BLOOD ORDERAB LES Final Result [facility] [address] [place] [phone] [phone] * (ABNORMAL) Comprehensive Metabolic Panel (10/29/2024 12:06 PM EST) Sodium 140 135 - 145 mmol/L [facility] Potassium 3.7 3.3 - 5.1 mmol/L [facility] Chloride 112(H) 96 - 108 mmol/L [facility] Carbon Dioxide 21(L) 22 - 29 mmol/L [facility] Anion Gap 11(L) 12 - 20 [facility] Urea Nitrogen (BUN) 19(H) 9 - 16 mg/dL [facility] Creatinine, Serum 0.79 0.5 - 1.4 mg/dL [facility] Creatinine Clr Calc Pharmacy 68.7 [facility] Comment:Provided height and weight: 152.4 cm,68.6 kg.eGFR (calculated from the MDRD study equation) and eCrCl(calculated from the Cockcroft-Gault equation) are based ondifferent parameters and may not yield comparable results.If eCrCl result is absurd, please check patient'sheight/weight. Estimated Glomerular Filt Rate >60 [facility] Comment:Chronic Kidney Disea se: Estimated GFR < 60 mL/min/1.76u2Tgrpkz Kidney Disease: Estimated GFR < 15 mL/min/1.73m2 Glucose 123(H) 60 - 115 mg/dL [facility] Calcium 9.3 8.4 - 10.2 mg/dL [facility] Bilirubin, Total 0.4 0.0 - 1.0 mg/dL [facility] Aspartate Amino Transferase 28 5 - 31 U/L [facility] Alanine Aminotransferase 41(H) 0 - 31 U/L [facility] Total Protein 8.2(H) 6.5 - 8.0 g/dL [facility] Albumin Level 4.2 3.5 - 5.0 g/dL [facility] Alkaline Phosphatase 140(H) 39 - 117 U/L [facility] 10/29/2024 12:0 6 PM EST 10/29/2024 12:09 PM EST Generic External Data Provider LAB BLOOD ORDERAB LES Final Result Performing Organization Address [facility] Co de Phone Number [facility] [address] [place] [phone] * (ABNORMAL) Prothrombin Time-INR (10/29/2024 12:06 PM EST) Prothrombin Time 12.6(H) 10.9 - 12.4 SEC [facility] INTERNATIONAL NORM RATIO 1.1 0.9 - 1.1 [facility] Comment:INTERNATIONAL NORMAL IZED RATIO (INR) REFERENCE [...] ORDERAB LES Final Result Performing Organization Address [facility] Co de Phone Number [facility] [address] [place] [phone] * (ABNORMAL) CBC auto differential (10/29/2024 12:06 PM EST) White Blood Count 7.4 4.8 - 10.8 X10*3/uL [facility] Red Blood Count 4.83 4.20 - 5.50 X10*6/uL [facility] Hemoglobin 13.3 12.0 - 16.0 g/dl [facility] Hematocrit 40.4 37.0 - 47.0 % [facility] Mean Corpuscular Volume 83.6 80.0 - 98.0 fL [facility] Mean Corpuscular Hemoglobin 27.5 27.0 - 33.0 pg [facility] Mean Corpuscular HGB Conc 32.9 31.0 - 35.0 g/dl [facility] Red Cell Distribution Width 13.4 11.0 - 16.0 % [facility] Platelet Count 302 160 - 400 X10*3/uL [facility] Mean Platelet Volume 8.0(L) 9.4 - 12.3 fL [facility] Neutrophils Percent Auto 45.2 45 - 73 % [facility] Imm Gran Pct Auto 0.1 0.0 - 0.4 % [facility] Lymphocytes Percent Auto 40.7(H) 20 - 40 % [facility] Monocytes Percent Auto 11.2(H) 2 - 11 % [facility] Eosinophils Percent Auto 2.4 0 - 4 % [facility] Basophils Percent Auto 0.4 0 - 2 % [facility] NRBC Pct Auto 0.0 0.0 - 0.2 /100WBC [facility] Neutrophils Absolute Auto 3.3 2.0 - 8.3 x10*3/uL [facility] Imm Gran Abs Auto 0.01 0.00 - 0.03 X10*3/uL [facility] Lymphocytes Absolute Auto 3.0 1.2 - 4.9 X10*3/uL [facility] Monocytes Absolute Auto 0.8 0.1 - 1.2 X10*3/uL [facility] Eosinophils Absolute Auto 0.2 0.0 - 0.4 X10*3/uL [facility] Basophils Absolute Auto 0.0 0.0 - 0.2 X10*3/uL [facility] NRBC Abs Auto 0.000 0.0 - 0.012 X10*3/uL [facility] 10/29/2024 12:0 6 PM EST 10/29/2024 12:09 PM EST us Generic External Data Provider LAB BLOOD ORDERAB LES Final Result [facility] [address] [place] [phone] documented in this encounter Visit Diagnoses Not on filedocumented in this encounter Additional Health Concerns Assessment Noted Time PHQ-9 Depression Total Score: 4 12/09/19 24 10:18 AM EDT documented as of this encounter Care Teams Topper Press Operator Relationship Specialty Start Date End Date Farhana Horn DO [address] [place] [address] PCP - General Family Medicine 09/09/18 documented as of this encounter
--- OUTSIDE RECORDS SUMMARY | 2024-11-13 09:20 | XMS_ITS | Encounter Summary ---
Author Organization [employer] Address [address] [facility] 7t [place] [address] Care Team Providers Care Nurse Staff Industrial Name Role Phone Farhana Horn Primary Care Provider [phone] Reason for Visit * Reason Onset Date Comments Recall Letter 10/15/2024 Recall Letter se nt 10/15/24. Encounter Details Date Type Department Care Team ([facility] st Contact Info) Description 10/15/[address] [facility] MEDICINE [address] [place] [address] Sudha Doss [place] Recall Letter (Recall Letter [...] Description 01/29/2025 10:15 AM EDT Office Visit [facility] MEDICINE [address] [place] [address] Farhana Horn DO [address] [place] [address] documented as of this encounter Visit Diagnoses Not on filedocumented in this encounter Additional Health Concerns Assessment Noted Time PHQ-9 Depression Total Score: 4 12/09/19 24 10:18 AM EDT documented as of this encounter Care Teams Nurse Staff Industrial Relationship Specialty Start Date End Date Farhana Horn DO [address] [place] [address] PCP - General Family Medicine 09/09/18 documented as of this encounter
--- OUTSIDE RECORDS SUMMARY | 2024-11-13 09:20 | XMS_ITS | Encounter Summary ---
Author Organization [employer] Address [address] [facility] 7t [place] [address] Care Team Providers Care Fish Skinning Machine Feeder Name Role Phone Farhana Horn DO Primary Care Provider + [phone] Reason for Visit * Reason Comments Care Coordination Outreach Encounter Details Date Type Department Care Team (Latest Contact Info) Description 11/05/2024 Patient Outreach [facility] CHC MED & PEDS [address] [place], [place] [phone] Farhana Horn DO [address] [facility] [place] [address] Care Coordination (Outreach) Social History Tobacco Use Types Packs/Day Years [...] AM EDT documented as of this encounter Progress Notes * Tita Saunders - 11/05/2024 9:11 AM EST CHW Tita Saunders, placed outbound call to patient introducing herself from [facility], in regards to offering services. Patient's name and was confirmed. Patient agrees to participate in program. Appt. for initial assessment scheduled for 11/09/24 @ 10:00AM. CHW reinforced direct contact information or for any additional questions or concerns and extended clinic hours on Mondays and Wednesdays, and Walk-In Urgent Care Located in [facility] of [facility]. Patient provided with after-hours line for [facility], , which offer night time triage service and option to transfer to family development extension specialist provider if needed. Patient verbalizes understanding, and able to repeat back to appeals writer. documented in this encounter Plan of Treatment Upcoming Encounters Date Type Department Care Team (Late st Contact Info) Description 01/29/2025 10:15 AM EDT Office Visit [facility] MEDICINE [address] [place] [address] Farhana Horn, [address] [place] [address] documented as of this encounter Visit Diagnoses Not on filedocumented in this encounter Additional Health Concerns Assessment Noted Time PHQ-9 Depression Total Score: 4 12/09/19 24 10:18 AM EDT documented as of this encounter Care Teams Fish Skinning Machine Feeder Relationship Specialty Start Date End Date Farhana Horn DO [address] [place] [address] PCP - General Family Medicine 09/09/18 documented as of this encounter
--- OUTSIDE RECORDS SUMMARY | 2024-11-13 09:20 | XMS_ITS | Encounter Summary ---
Author Organization [employer] Address [address] [facility] 7t [place] [address] Care Team Providers Care Cable Respooler Name Role Phone Farhana Horn DO Primary Care Provider + [phone] Reason for Visit * Reason Onset Date Comments Appointment Request 10/29/2024 Encounter Details Date Type Department Care Team ([facility] st Contact Info) Description 10/29/2024 Telephone [facility] [address] [place] [address] Farhana Horn DO [address] [place] [address] Appointment Request Social History Tobacco Use Types [...] Description 01/29/2025 10:15 AM EDT Office Visit [facility] [address] [place] [address] Farhana Horn DO [address] [place] [address] documented as of this encounter Visit Diagnoses Not on filedocumented in this encounter Additional Health Concerns Assessment Noted Time PHQ-9 Depression Total Score: 4 12/09/19 24 10:18 AM EDT documented as of this encounter Care Teams Cable Respooler Relationship Specialty Start Date End Date Farhana Horn DO [address] [place] [address] PCP - General Family Medicine 09/09/18 documented as of this encounter
--- OUTSIDE RECORDS SUMMARY | 2024-11-13 09:20 | XMS_ITS | Encounter Summary ---
Author Organization [employer] Address [address] [place] [address] 7t [place] [address] Care Team Providers Care Photographer Apprentice Lithographic Name Role Phone Farhana Horn DO Primary Care Provider + [phone] Encounter Details Date Type Department Care Team ([facility] st Contact Info) Description 11/04/2024 10:00 AM EST Office Visit [facility] [address] [place] [address] Farhana Horn DO [address] [place] [address] Generalized abdominal pain (Primary Dx); Cough with hemoptysis; Generalized weakness; Type 2 diabetes mellitus without complication, without long-term current use of insulin ([facility]) Social History Tobacco Use Types Packs/Day Years [...] Description 01/29/2025 10:15 AM EDT Office Visit [facility] [address] [place] [address] Farhana Horn DO [address] [place] [address] documented as of this encounter Procedures Procedure Name Priority Date/Time Associated Diagnosis Comments POCT GLYCATED HEMOGLOBIN, TOTAL Routine 11/04/2024 10:14 AM EST Type 2 diabetes mellitus without complication, without long-term current use of insulin ([facility]) POCT GLUCOSE Routine 11/04/2024 10:14 AM EST Type 2 diabetes mellitus without complication, without long-term current use of insulin ([facility]) documented in this encounter Results * POCT Glucose (11/04/2024 10:14 AM EST) Glucose Blood, POC 141 60 - 200 mg/dL QC Media Lot # [id number] Lot# Expiration Date [id number] Blood Capillary blood specimen / Unknown 11/04/2024 10:14 AM EST Farhana Horn DO POINT OF CARE TEST ENTER/PAUL T ORDERABLES Final Result * (ABNORMAL) POCT HGB A1C (11/04/2024 10:14 AM EST) Hemoglobin A1C 6.5(A) 4.0 - 6.0 % QC Media Lot # [id number] Lot# Expiration Date ,601 Blood 11/04/2024 10:1 4 AM EST Farhana Horn DO POINT OF CARE TEST ENTER/PAUL T ORDERABLES Final Result documented in this encounter Visit Diagnoses Diagnosis Generalized abdominal pain- Primary Abdominal pain, generalized Cough with hemoptysis Generalized weakness Type 2 diabetes mellitus without complication, without long-term current use of insulin ([facility]) documented in this encounter Additional Health Concerns Assessment Noted Time PHQ-9 Depression Total Score: 4 12/09/19 24 10:18 AM EDT documented as of this encounter Care Teams Photographer Apprentice Lithographic Relationship Specialty Start Date End Date Farhana Horn DO [address] [place] [address] PCP - General Family Medicine 09/09/18 documented as of this encounter
--- OUTSIDE RECORDS SUMMARY | 2024-11-13 09:20 | XMS_ITS | Encounter Summary ---
Author Organization [employer] [facility] Address [address] [place] [address] [address] [address] Care Team Providers Care Crystal Slicer Name Role Phone Farhana Horn DO Primary Care Provider [phone] Encounter Details Date Type Department Care Team (Late st Contact Info) Description 09/12/2022 Orders Only [facility] [address] [place] [address] Farhana Horn DO [address] [place] [address] Social History Tobacco Use Types Packs/Day Years [...] Description 01/29/2025 10:15 AM EDT Office Visit [facility] [address] [place] [address] Farhana Horn DO [address] [place] [address] documented as of this encounter Visit Diagnoses Not on filedocumented in this encounter Care Teams Crystal Slicer Relationship Specialty Start Date End Date Farhana Horn DO [address] [place] [address] PCP - General Family Medicine 09/09/18 documented as of this encounter
--- OUTSIDE RECORDS SUMMARY | 2024-11-13 09:20 | XMS_ITS | Encounter Summary ---
Author Organization [employer] Address [address] [place] [address] 7t [place] [address] Care Team Providers Care Lens Generating Machine Tender Name Role Phone Farhana Horn Primary Care Provider [phone] Encounter Details Date Type Department Care Team [...] Description 01/29/2025 10:15 AM EDT Office Visit [facility] [address] [place] [address] Farhana Horn DO [address] [place] [address] documented as of this encounter Visit Diagnoses Not on filedocumented in this encounter Additional Health Concerns Assessment Noted Time PHQ-9 Depression Total Score: 4 12/09/19 24 10:18 AM EDT documented as of this encounter Care Teams Lens Generating Machine Tender Relationship Specialty Start Date End Date aFrhana Horn DO [address] [place] [address] PCP - General Family Medicine 09/09/18 documented as of this encounter
--- OUTSIDE RECORDS SUMMARY | 2024-11-13 09:20 | XMS_ITS | Encounter Summary ---
Author Organization [employer] Address [address] [place] [address] 7[address] [place] [address] Care Team Providers Care Product Marketing Director Name Role Phone Farhana Horn DO Primary Care Provider + [phone] Reason for Visit * Reason Comments Med Refill Encounter Details Date Type Department Care Team (Late Contact Info) Description 12/13/2022 Refill [facility] [address] [place] [address] [facility] [address] [place] [address] Hyperlipidemia, unspecified hyperlipidemia type Social History Tobacco [...] Department Care Team (Late Contact Info) Description 01/29/2025 10:15 AM EDT Office Visit [facility] [address] [place] [address] Farhana Horn DO [address] [place] [address] documented as of this encounter Visit Diagnoses Diagnosis Hyperlipidemia, unspecified hyperlipidemia type documented in this encounter Care Teams Product Marketing Director Relationship Specialty Start Date End Date Farhana Horn DO [address] [place] [address] PCP - General Family Medicine 09/09/18 documented as of this encounter
--- OUTSIDE RECORDS SUMMARY | 2024-11-13 09:20 | XMS_ITS | Encounter Summary ---
Author Organization [employer] Address [address] [facility] 7t [place] [address] Care Team Providers Care Advertising Display Rotator Name Role Phone LizFarhana key Primary Care Provider + [phone] Encounter Details Date Type Department Care Team (Late st Contact Info) Description 11/04/2024 Orders Only [facility] External Provider, Social History Tobacco Use Types Packs/Day Years [...] Description 01/29/2025 10:15 AM EDT Office Visit [facility] [address] [place], [place] [phone] Farhana Horn DO [address] [place], [place] [phone] documented as of this encounter Procedures Procedure Name Priority Date/Time Associated Diagnosis Comments SARS COV2/INFLUENZA A/B AND RSV RNA QL NAAT Routine 11/04/2024 2:59 PM EST CTA CHEST PE PROTOCAL Routine 11/04/2024 1:[address] ABDOMEN PELVIS W CONTRAST Routine 11/04/2024 11:43 AM EST documented in this encounter Results * (ABNORMAL) SARS-CoV-2 RNA, Influenza A/B, and RSV RNA, Ql NAAT (11/04/2024 2:59 PM EST) Influenza A PCR POSITIVE(A) Negative [facility] Influenza B PCR NEGATIVE Negative [facility] Resp Syncy Virus RNA Qual PCR NEGATIVE Negative [facility] SARS COV2 PCR NEGATIVE Negative [facility] Comment:All test results mus t be [...] use by authorized laboratories.Testing performed on the [employer] GeneXpert utilizingreal-time RT-PCR.All SARS CoV2 and positive influenza A/B results arereported to [facility]. 11/04/2024 2:59 PM EST 11/04/2024 3:03 PM EST us Generic External Data Provider LAB MICROBIOLOGY - GENERAL ORDERABLES Final Result [facility] [address] [place] [address] [phone] * CTA Chest PE Protocal (11/04/2024 1:16 PM EST) Anatomical Region Laterality Modality Body, Chest Computed Tomogra phy 11/04/2024 1:16 PM EST Narrative 11/04/2024 1:38 PM EST ?[address] ?[place] [address] ? CT Scan Report ? Signed ? Patient: Tri Bowens ?MR#: [id number] ?? 63 ? : 1970 ?Acct:[id number] ? Age/Sex: 54 / F ?ADM Date: 11/04/24 ? Loc: HO.ED ? Attending Dr: ? Ordering Physician: Brenden Denton MD ?? Date of Service: 11/04/24 ?? Procedure(s): CT angio chest PE protocol ?? Accession Number(s): [id number] ? cc: Brenden Denton MD; Farhana Horn DO ? Report Number: ?? [id number]: Total DLP = ??278.00 mGy-cm ?? EXAMINATION: [...] DD/ 1316 ? TD/TT: 11/04/24 1316 ? Health Center Associate: ? Procedure Note Wai Bose - 11/04/[address] [address] [address] Scan Report Signed Patient: Tri Bowens#: [id number] 63 : 1970Acct:[id number] Age/Sex: 54 / FADM Date: 11/04/24 Loc: HO.ED Attending Dr: Ordering Physician: Brenden Denton MD Date of Service: 11/04/24 Procedure(s): CT angio chest PE protocol Accession Number(s): [id number] cc: Brenden Denton MD; Farhana Horn DO Report Number: [id number]: Total DLP = 278.00 mGy-cm EXAMINATION: CT [...] by: Yariel Brooks MD 11/04/2024 01:34 PM [facility] Dictated By: Yariel Buchanan MD Signed By: <Electronically signed by Yariel Garcia MDin OV> 11/04/24 1334 DD/ 1316 TD/TT: 11/04/24 1316 Health Center Associate: [facility] External Provider IMG CT PROCEDURES Final Result * CT Abdomen Pelvis w/ Contrast (11/04/2024 11:43 AM EST) Anatomical Region Laterality Modality Body, Pelvis, Abdomen Computed T omography 11/04/2024 11:4 3 AM EST Narrative 11/04/2024 1:32 PM EST ?[address] ?[place] [address] ? CT Scan Report ? Signed ? Patient: Kwan,Tri ?MR#: [id number] ?? 63 ? : 1970 ?Acct:[id number] ? Age/Sex: 54 / F ?ADM Date: 11/04/24 ? Loc: HO.ED ? Attending Dr: ? Ordering Physician: Brenden Denton MD ?? Date of Service: 11/04/24 ?? Procedure(s): CT abdomen pelvis w IV con ?? Accession Number(s): [id number] ? cc: Brenden Denton MD; Farhana Horn DO ? Report Number: ?? [id number]: Total DLP = ??462.00 mGy-cm ?? EXAMINATION: [...] DD/ 1143 ? TD/TT: 11/04/24 1316 ? Health Center Associate: ? Procedure Note Doncitlalyter, Image - 11/04/[address] [place] [address] [address] Scan Report Signed Patient: Wang Bowens#: [id number] 63 : 1970Acct:[id number] Age/Sex: 54 / FADM Date: 11/04/24 Loc: HO.ED Attending Dr: Ordering Physician: Brenden Denton MD Date of Service: 11/04/24 Procedure(s): CT abdomen pelvis w IV con Accession Number(s): [id number] cc: Brenden Denton MD; Farhana Horn DO Report Number: [id number]: Total DLP = 462.00 mGy-cm EXAMINATION: CT [...] by: Yariel Brooks MD 11/04/2024 01:28 PM [facility] Dictated By: Yariel Buchanan MD Signed By: <Electronically signed by Yariel Garcia MDin OV> 11/04/24 1328 DD/ 1143 TD/TT: 11/04/24 1316 Health Center Associate: [facility] External Provider IMG CT PROCEDURES Final Result documented in this encounter Visit Diagnoses Not on filedocumented in this encounter Additional Health Concerns Assessment Noted Time PHQ-9 Depression Total Score: 4 12/09/19 24 10:18 AM EDT documented as of this encounter Care Teams Advertising Display Rotator Relationship Specialty Start Date End Date Farhana Horn DO [address] [place] [address] PCP - General Family Medicine 09/09/18 documented as of this encounter
== END 2024-11-13 09:32 | disposition home or self-care (01) ==
PROVIDERS: PCP Family Medicine; Visit Provider Nurse Practitioner Adult Health
DX: E11.9 Type 2 diabetes mellitus without complications (principal); K58.1 Irritable bowel syndrome with constipation
CPT/HCPCS: 99204

== ENCOUNTER → 2024-11-13 08:46 | Outpatient (BNVA) | payer MEDICAID, SELFPAY | PROVIDERS: PCP Family Medicine; Visit Provider Nurse Practitioner Adult Health | DX: E11.9 Type 2 diabetes mellitus without complications (principal); K58.1 Irritable bowel syndrome with constipation | CPT/HCPCS: 82947; 83036; 99212 ==

== ENCOUNTER 2024-11-20 08:56 | Outpatient (AMB) | payer MEDICAID, SELFPAY ==
--- NOTE | 2024-11-20 08:57 | MHC.OFFVIS ---
Vital Signs 11/20/24 09:17 Height 5 ft 1 in Weight 156 lb 15.506 oz BMI 29.7 BP 132/76 Blood Pressure Location Rt brachial Position Sitting Pulse 68 Pulse Source Pulse Oximeter Pulse Oximetry (%) 97 Oxygen Delivery Method Room Air Intake Visit Reasons: f/u Intake Note: ESTABLISHED PATIENT for dysphagia, GERD, constipation mgmt. Pt attended endo appt 11/13 as referred. Seen in ED 10/29/24 for colitis. Chief Complaint; C/O chronic sx persistent since ED visit within the last 3 weeks. Pt states that they had an adverse reaction to one of their abx and was subsequently taken off of it. Pt has since completed a course of another abx but w/o relief. Pt brought medbox w/ her today per instructions @ [facility]. College Sc[employer] Coordinator Required: Yes College Scouting Coordinator Services: College Scouting Coordinator Present College Scouting Coordinator Name: Liliana Mcrae [id number] Information Interpreted: clinical only Accompanied by: Self / Same As Patient Allergies Penicillins [PENICILLINS] Allergy (Severe, Verified 11/20/24 08:58) RASH dulaglutide [From Trulicity] Adverse Reaction (Mild, Verified 11/20/24 08:58) Abdominal Pain HPI HPI f/u: Details: LAST VISIT: GERD (gastroesophageal reflux disease) IBS (irritable bowel syndrome) Diverticulosis Chronic idiopathic constipation Dysphagia Plan Patient reports to be feeling significantly better after upper endoscopy and dilation. Acid reflux less frequent. Patient admits that she is trying to avoid dietary triggers. Patient reports that she was unable to refill her sucralfate and she has not been taking that for couple months. Patient will continue current therapy with Nexium and we will send script for sucralfate. Patient was encouraged to stop eating late at night. Staying upright for minimum 3 hours after meals discussed with patient. Continue current bowel regimen. Increase fluid intake and activity to promote better bowel motility. Patient will continue low FODMAP diet. I will see her in 6 months. She will call our office if she will have any GI concerning symptoms. She is agreeable to this plan and verbalizes understanding of instructions. She was given the opportunity to ask questions and all questions answered. ? Thank you for allowing me to participate in her care Medications New sucralfate 1 g PO BEDTIME 90 tabs 3RF K21.9, K29.81 Refilled esomeprazole magnesium (Nexium) 40 mg PO DAILY 90 caps 3RF K21.9 TODAY'S VISIT Patient is here today for follow-up. Patient was seen in the ER 2 weeks after seen in the office in October. Patient had diarrhea and was diagnosed with mild colitis, placed on antibiotic which had to be changed to 2 her symptoms. Patient had at bedtime taste in her mouth and was feeling nauseous. Subsequently patient end up in the ER week and a half later with flu. Both visit reviewed as well as lab work. Patient since then has had dry mouth and bad taste in her mouth. Unable to eat anything. Able to drink some chicken broth. Patient reports tried eating rice and beans and unable to tolerate that. Patient brought all of her medications with her and she is taking Linzess daily and reports that her bowel movements are better. Her acid reflux patient feels like it is not controlled, epigastric pain sometimes feeling like she needs to spit up as the reflux and burning is going up all the way to her throat. Patient denies melena, hematochezia, unintentional weight loss or ribbon like stools PFSH Medical History Type 2 diabetes mellitus Diverticulosis Renal calculi Gastric varices Migraine headache Depression GERD (gastroesophageal reflux disease) Diabetes mellitus Adrenal nodule IBS (irritable bowel syndrome) HTN (hypertension) Hyperlipemia Surgical History History of surgery History of esophagogastroduodenoscopy (EGD) Hx of colonoscopy Hx of tubal ligation Hx of discectomy Family History Father Hx of type 1 diabetes mellitus History of epilepsy Mother Family history of high blood pressure Hx of cancer of uterus Social History Household Members Other:: daughter Housing: House Alcohol intake: never Patient Tobacco Use Status: Never used Tobacco Current occupational status: employed 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 Sexual orientation: Straight/Heterosexual Gender identity: Female Female Reproductive History Menstrual Age of Menarche: 10 Review of Systems Const Denies weight gain and Denies weight loss ENT Reports no additional complaints, Denies dysphagia and Denies odynophagia Card Reports no additional complaints Resp Reports no additional complaints GI Reports abdominal pain (Epigastric), Denies belching, Denies melena, Reports bloating, Denies change in bowel habits, Denies constipation, Denies dysphagia, Denies excessive flatus, Denies dyspepsia, Reports heartburn, Denies diarrhea, Denies loose stools, Reports nausea, Denies odynophagia and Denies vomiting Reports no additional complaints Musc Reports no additional complaints Neuro Reports no additional complaints Psych Reports no additional complaints Endo Reports no additional complaints Physical Exam Vital Signs: Last Vital Signs Pulse 68 11/20/24 09:17 BP 132/76 11/20/24 09:17 Pulse Ox 97 11/20/24 09:17 Oxygen Delivery Method Room Air 11/20/24 09:17 BMI result Body Mass Index 29.7 Const General: healthy appearing and no acute distress Nutritional Appearance: obese Orientation/consciousness: patient oriented x3 Resp Effort & Inspection: normal respiratory effort, able to speak in complete sentences, no tracheal deviation and symmetric chest movement Auscultation: clear to auscultation bilaterally Cardio Rate: regular rate GI Inspection: Yes normal to inspection, No distended and Yes obesity Palpation (GI): Soft to palpation, not firm, nontender and No hepatosplenomegaly present Auscultation: normal bowel sounds General: Yes no CVA tenderness Back/Spine/Pelvis Back: no CVA tenderness Skin General skin exam: elasticity normal, turgor normal and dry skin Neuro General: patient oriented x3 Psych Appearance: grossly normal Mental Status: mental status grossly normal Assessment & Plan Assessment & Plan (1) GERD (gastroesophageal reflux disease): Code(s): K21.9 - Gastro-esophageal reflux disease without esophagitis Category: Medical Qualifiers: Esophagitis presence: without esophagitis Qualified Code(s): K21.9 - Gastro-esophageal reflux disease without esophagitis (2) IBS (irritable bowel syndrome): Code(s): K58.9 - Irritable bowel syndrome, unspecified Category: Medical Qualifiers: Irritable bowel syndrome type: with constipation Qualified Code(s): K58.1 - Irritable bowel syndrome with constipation (3) Diverticulosis: Code(s): K57.90 - Diverticulosis of intestine, part unspecified, without perforation or abscess without bleeding Category: Medical (4) Chronic idiopathic constipation: Code(s): K59.04 - Chronic idiopathic constipation (5) Dysphagia: Code(s): R13.10 - Dysphagia, unspecified (6) Dyspepsia: Code(s): R10.13 - Epigastric pain (7) Postprandial epigastric pain: Code(s): R10.13 - Epigastric pain Plan Discussed with patient the importance of avoiding dietary triggers and late night snacking. Staying upright for minimum 3 hours after meals discussed with patient. Patient will tried limb and cane the to help increase Salvation and hopefully clear her salivary glands. Increase fluid intake and activity to promote better bowel motility. Will change Nexium to lansoprazole. Patient is status post cholecystectomy, possible bile reflux. If this will help we will order bile salts agent binder like welchol or cholestyramine. Will send her script for Zofran for nausea. Patient will return in the office in 2 months, sooner on as needed basis. She is agreeable to this plan and verbalizes understanding of instructions. She was given the opportunity to ask questions and all questions answered. Thank you for allowing me to participate in her care Medications: New lansoprazole 30 mg PO DAILY 30 caps 3RF K21.9 - Gastro-esophageal reflux disease without esophagitis ondansetron 4 mg PO Q8H PRN 20 tabs 0RF nausea and vomiting R11.0 - Nausea Discontinued esomeprazole magnesium (Nexium) Discontinued Reason: Doctor's Order 40 mg PO DAILY 90 caps 3RF K21.9 - Gastro-esophageal reflux disease without esophagitis Coding Level of Care Code Est Pt Level 4 (47437) Complex EM visit Add On G2211 Diagnoses Gastroesophageal reflux disease without esophagitis K21.9 Esophagitis presence: without esophagitis Irritable bowel syndrome with constipation K58.1 Irritable bowel syndrome type: with constipation Diverticulosis K57.90 Chronic idiopathic constipation K59.04 Dysphagia R13.10 Dyspepsia R10.13 Postprandial epigastric pain R10.13 Time Spent (min) 40 Comment 25 minutes spent with patient and additional 15 minutes spent reviewing her records
[2024-11-20 09:17] VITALS: BP 132/76; PULSE 68; O2SAT 97; BMI 29.7
--- OUTSIDE RECORDS SUMMARY | 2024-11-20 09:20 | XMS_ITS | Encounter Summary ---
Author Organization [employer] Address [address] [facility] 7t [place] [address] Care Team Providers Care Associate Juvenile Court Judge Name Role Phone Farhana Horn Primary Care Provider + [phone] Reason for Visit * Reason Comments Diabetic Eye Exam Encounter Details Date Type Department Care Team (Late st Contact Info) Description 10/22/2024 2:00 PM EST Office Visit [facility] OPTOMETRY [address] [place] [address] Steven, Danette, OD [address] [place] [address] Diabetes type 2, no ocular involvement (CMS/HCC) (Primary Dx); Headache, unspecified headache type; Vitelliform lesion of macula; Combined forms of age-related cataract of both eyes; Meibomian gland disease, unspecified laterality; Presbyopia Social History Tobacco Use Types Packs/Day [...] as of this encounter Progress Notes * Danette Harris, OD - 10/22/2024 2:00 PM EST Eye Care Progress Note Patient ID: Tri Bowens is a 54 y.o. female. Chief Complaint Diabetic Eye Exam HPI Here for a diabetic eye exam. She has Type II NIDDM. Her last HbA1c was 6.2% on 04/14/2024). Today the patient complains of new frontal headaches for the last 3 months that last about 20 minutes per episode and occur randomly throughout the day. She denies changes in vision. She does notes intermittent longstanding floaters that appear randomly. Last eye exam was 04/25/23. Last edited by Danette Harris, OD on 11/13/2024 11:43 AM. Current Outpatient Medications Medication Sig Dispense Refill bisacodyl (Dulcolax) 5 MG EC tablet Take 10 mg by mouth. Citrucel 500 MG tablet TAKE 1 TABLET BY MOUTH DAILY; TAKE IT WITH A FULL GLASS OF WATER. doxycycline (Monodox) 100 MG capsule TOME TIERA CAPSULA VIA ORAL DOS VECES AL JADYN esomeprazole (NexIUM) [address] capsule TOME TIERA CAPSULA VIA ORAL CADA JADYN guaiFENesin-codeine (Robitussin-AC) 100-10 MG/5ML syrup TAKE 5ML BY MOUTH CADA 6 HORAS LAMINE SEA NECESARIO FOR COUGH FOR 7 DAYS levoFLOXacin (Levaquin) 750 MG tablet TOME TIERA TABLETA VIA ORAL CADA JADYN metroNIDAZOLE (Flagyl) 500 MG tablet TOME TIERA TABLETA VIA ORAL CADA 8 HORAS acetaminophen (Tylenol 8 Hour) 650 MG ER tablet take 1 Tablet by oral route every 8 hours as neededas needed for PAIN AND/OR FEVER 100 tablet 1 amitriptyline (Elavil) 150 MG tablet TOME TIERA TABLETA VIA ORAL AL ACOSTARSE atorvastatin (Lipitor) 20 MG tablet TAKE ONE TABLET BY MOUTH AT BEDTIME 90 tablet 1 baclofen (Lioresal) 20 MG tablet take 1 tablet by oral route 3 times every day as needed for MM SPASM/PAIN 60 tablet 5 qnavyefvog-ftcoikrdagcuv-fvvdoifc 50-325-40 MG tablet TAKE ONE TABLET BY MOUTH EVERY 4 HOURS NEEDED FOR MIGRAINE. 20 tablet 2 Calcium Carb-Cholecalciferol 600-10 MG-MCG tablet Take 1 tablet by mouth 2 times daily. 60 tablet 11 cholecalciferol (Vitamin D-3) 50 MCG (2000 UT) capsule Take 1 capsule (50 mcg) by mouth in the morning. 30 capsule 11 diclofenac (Voltaren) 50 MG EC tablet take 1 tablet by oral route 2 times every day as needed for Pain 60 tablet 1 Diclofenac Sodium 1 % gel apply (2G) by topical route 2 times every day to the affected area(s) as needed for Pain 100 g 1 gabapentin (Neurontin) 400 MG capsule TAKE ONE CAPSULE BY MOUTH TWICE A DAY AND TAKE TWO CAPSULES AT BEDTIME. 120 capsule 5 GAS RELIEF 125 MG capsule TAKE ONE CAPSULE BY MOUTH 2 TO 4 TIMES A DAY NEEDED FOR ABDOMINAL DISTENTION. loratadine (Claritin) 10 MG tablet TAKE ONE TABLET BY MOUTH EVERY DAY IN THE MORNING 90 tablet 3 magnesium oxide (Mag-Ox) 400 MG tablet Take 1 tablet (400 mg) by mouth Once per day. 30 tablet 11 meclizine (Antivert) 25 MG tablet TAKE 1 TABLET BY MOUTH IF NEEDED IN THE MORNING, AT NOON AND AT BEDTIME FOR DIZZINESS 30 tablet 2 metFORMIN (Glucophage) 500 MG tablet Take 1 tablet by mouth in the evening with meals 90 tablet 1 ondansetron (Zofran) 4 MG tablet TOME TIERA TABLETA VIA ORAL CADA 8 HORAS LAMINE SEA NECESARIO PARA LAS NAUSEAS Y LOS VOMITOS 20 tablet 1 pantoprazole (ProtoNix) 40 MG EC tablet Take 1 tablet (40 mg) by mouth in the morning. Do not crush, chew, or split. 180 tablet 1 polycarbophil (FiberCon) 625 MG tablet Take 1 tablet (625 mg) by mouth 2 times daily. 180 tablet 1 propranolol LA (Inderal LA) 120 MG 24 hr capsule TOME TIERA CAPSULA VIA ORAL CADA JADYN pyridoxine (Vitamin B-6) 100 MG tablet TAKE 1 TABLET BY MOUTH EVERY DAY 90 tablet 1 Saccharomyces boulardii (probiotic) 250 MG capsule Take 1 capsule (250 mg) by mouth in the morning.90 capsule 1 senna (Senokot) 8.6 MG tablet TOME DOS TABLETAS VIA ORAL CADA JADYN AL ACOSTARSE sucralfate (Carafate) 1 g tablet TOME TIERA TABLETA VIA ORAL AL ACOSTARSE triamcinolone (Kenalog) 0.1 % ointment Apply topically if needed in the morning and at bedtime for rash. 30 g 0 Trulicity 0.75 MG/0.5ML solution auto-injector INJECT ONE PEN (=0.75MG) SUBCUTANEOUSLY ONCE A WEEK DIRECTED 2 mL 3 No current facility-administered medications for this visit. Past Medical History: Diagnosis Date Adrenal nodule (CMS/HCC) Chronic GERD Diabetes mellitus (CMS/HCC) HLD (hyperlipidemia) Hypertension Major depression Migraine Past Surgical History: Procedure Laterality Date ABDOMINAL ADHESION SURGERY 12/2003 HEMORRHOID SURGERY 2009 SALPINGECTOMY Left 12/2003 Partial TUBAL LIGATION Bilateral 1994 No family history on file. Social History Socioeconomic History Marital status: Spouse name: Not on file Number of children: Not on file Years of education: Not on file Highest education level: Not on file Occupational History Not on file Tobacco Use Smoking status: Never Passive exposure: Never Smokeless tobacco: Never Vaping Use Vaping status: Unknown Substance and Sexual Activity Alcohol use: Never Drug use: Never Sexual activity: Not on file Other Topics Concern Not on file Social History Narrative Not on file Social Drivers of Health Food Insecurity: Low Risk (11/04/2024) Food Insecurity Within the past 12 months, you worried that your food would run out before you got money to buy more:: Never True Within the past 12 months,the food you bought just didn't last and you didn't have enough money to get more: : Never True Transportation Needs: Low Risk (11/04/2024) Transportation In the past 12 months, has lack of transportation kept you from medical appts, meetings, work or from getting things needed for daily living? : No Intimate Partner Violence: Not on file Housing Stability: Low Risk (11/04/2024) Housing Stability What is your housing situation today?: I have housing Think about the place you live. Do you have problems with any of the following? : None of the above Allergies Allergen Reactions Lisinopril Cough Penicillins ROS Positive for: Eyes Negative for: Constitutional, Gastrointestinal, Neurological, Skin, Genitourinary, Musculoskeletal,HENT, Endocrine, Cardiovascular, Respiratory, Psychiatric, Allergic/Imm, Heme/Lymph Last edited by Deepthi Yanez on 10/22/2024 2:06 PM. Base Eye Exam Visual Acuity (Snellen - Linear) Right Left Both Dist cc 20/20 20/20 Near cc 20/25 Correction: Glasses Tonometry (iCare , 2:19 PM) Right Left Pressure 15 14 Pupils Pupils APD Right PERRL None Left PERRL None Visual Vega (Counting fingers) Left Right Full Full Extraocular Movement Right Left Full Full Neuro/Psych Oriented x3: Yes Mood/Affect: Normal Dilation Both eyes: 1% Tropicamide @ 2:19 PM Slit Lamp and Fundus Exam External Exam Right Left External Normal Normal Slit Lamp Exam Right Left Lids/Lashes 1+ MGD 1+ MGD Conjunctiva/Sclera Pinguecula nasal and temporal Pinguecula nasal and temporal Cornea Clear Clear Anterior Chamber Deep and quiet Deep and quiet Iris Flat, no NVI Flat, no NVI Lens 1+NS, trace ACC 1+ NS Fundus Exam Right Left Vitreous Vitreous syneresis Vitreous syneresis Disc [place] and Distinct, no NVD [place] and Distinct, no NVD C/D Ratio Vertical 0.10 0.10 C/D Ratio Horizontal 0.10 0.10 Macula Flat and Intact, no CSME Vitelliform lesion/large drusen superotemporal to fovea, no CME/SRF Vessels Normal Normal Periphery No holes/breaks/tears 360 degrees, no NVE No holes/breaks/tears 360 degrees, no NVE Refraction Wearing Rx Sphere Cylinder [place] Add Right -2.75 -1.75 150 +2.00 Left -1.50 -1.00 030 +2.00 Manifest Refraction Sphere Cylinder [place] Dist VA Add Right -2.75 -1.75 150 20/20 +2.25 Left -1.50 -1.00 030 20/20 +2.25 Near VA Both: 20/20 Final Rx Sphere Cylinder [place] Dist VA Add Right -2.75 -1.75 150 20/20 +2.25 Left -1.50 -1.00 030 20/20 +2.25 Expiration Date: 10/22/2026 Assessment/plan: Diagnoses and all orders for this visit: Diabetes type 2, no ocular involvement ([facility]) There is no diabetic retinopathy or macular edema present today in either eye. The patient was educated on the exam findings. The patient was educated to continue controlling blood glucose levels through diet, exercise and medication. The patient was educated on potential complications of diabetic retinopathy, including blindness, if left untreated. The patient was educated on the importance of an annual diabetic eye exam to monitor for diabetic retinopathy. A summary of today's dilated eye exam results will be communicated to the patient's PCP through the shared patient problem list in [facility].Will monitor in 1 year. Headache, unspecified headache type No pathology present to suggest a cause for the patient's headaches, specifically, there was no optic nerve edema in either eye. The patient was educated to speak with her PCP regarding the headachesfor further evaluation and treatment. Vitelliform lesion of macula The patient has a vitelliform lesion or a large isolated drusen in the left macula. Vitelliform lesions occur in the macula, which is the area inside the eye that is responsible for sharp central vision. Vitelliform lesions are the accumulation of a fatty yellow pigment in the cells of the macula. Some people remain without symptoms throughout their life, however, some people may slowly develop blurred and/or distorted vision that can progress to central vision loss over time. The patient was educated that there is no cure for this condition at this time and that regular eye exams are necessary to monitor her vision and to monitor for progression of the condition. She was given an amsler grid with instructions and educated to call with any changes in vision. Otherwise will monitor in 1 year. - OCT, Retina - OU - Both Eyes 4. Combined forms of age-related cataract of both eyes Not visually significant. No treatment necessary. Patient educated on progressive nature of cataracts. Will monitor at their next exam. 5. Meibomian gland disease, unspecified laterality The patient was educated that there are glands in the eyelids that secrete oil to mix with the tearlayer over the cornea. These glands are called meibomian glands. The patient was educated that meibomian gland dysfunction (MGD) occurs when the glands are not secreting enough oil or when the oil they secrete is of poor quality. Most often, the oil gland openings get plugged up so that less oil comes out of the glands. The oil that does make it out of the glands can be granular (crusty) or otherwise abnormal, and can cause irritation. The patient was educated that this condition can cause blurry vision and ocular discomfort. The patient was educated to begin warm compresses using a washclothand warm water to help the glands better express. The patient was also given a handout of OTC artificial tears to purchase and use 4 times a day in both eyes. Will monitor at their next full eye exam. 6. Presbyopia Glasses prescription updated and given. Will monitor at the patient's next full eye exam. Danette Harris, OD 11/13/2024, 12:10 PM Student Name: Deepthi Yanez I attest that I was physically present with the optometry student. I personally saw and evaluated the patient and performed my own history and examination. I have reviewed, verified, and revised the documented findings as necessary and agree with the content and plan as written. Promotional Representative Source: ___ None _x__ Bilingual Staff ___ Qualified Staff Label Press Operator ___ Telephone Promotional Representative; ID# ___ Promotional Representative brought by patient (family member, friend, SOCIAL STUDIES TEACHER, etc) ___ In person crystallography teacher ___ Ipad Promotional Representative; ID#: Language Spoken During Exam: __Spanish documented in this encounter Plan of Treatment Upcoming Encounters Date Type Department Care Team (Late st Contact Info) Description 01/29/2025 10:15 AM EDT Office Visit [facility] MEDICINE [address] [place] [address] Farhaan Horn DO [address] [place] [address] documented as of this encounter Procedures Procedure Name Priority Date/Time Associated Diagnosis Comments OCT, RETINA - OU - BOTH EYES Routine 10/22/2024 2:00 PM EST Vitelliform lesion of macula documented in this encounter Results * OCT, Retina - OU - Both Eyes (10/22/2024 2:00 PM EST) Danette Summers, OD - 11/13/2024 11:40 AM EST OCT MACULA INTERPRETATION Optical Coherence Tomography Interpretation Report Measurements: OD ??OS Macula Thickness ??278 microns ??269 microns Test findings: OD: normal foveal contour, no cystoid macular edema (CME), no retinal pigment epithelium (RPE) disruption, no subretinal fluid (SRF) OS: normal foveal contour, no cystoid macular edema (CME), isolated vitelliform lesion/large drusen superotemporal to fovea, no subretinal fluid (SRF) Impression and Plan: No treatment necessary at this time. Patient given Amsler Grid. Will monitor in 1 year, sooner with changes in vision. 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
--- OUTSIDE RECORDS SUMMARY | 2024-11-20 09:20 | XMS_ITS | Encounter Summary ---
Author Organization [employer] Address [address] [facility] 7t [place] [address] Care Team Providers Care Forensic Dna Analyst Name Role Phone Farhana Horn DO Primary Care Provider + [phone] Reason for Visit * Reason Comments Care Coordination Outreach Encounter Details Date Type Department Care Team (Latest Contact Info) Description 11/05/2024 Patient Outreach [facility] [address] [place], [place] [phone] Farhana Horn DO [address] [facility] [place] [address] Care Coordination (Outreach) Social History Tobacco Use [...] outbound call to patient introducing herself from [facility], in regards to offering services. Patient's name and was confirmed. Patient agrees to participate in program. Appt. for initial assessment scheduled for 11/09/24 @ 10:00AM. CHW reinforced direct contact information or for any additional questions or concerns and extended clinic hours on Mondays and Wednesdays, and Walk-In Urgent Care Located in [facility] of [facility]. Patient provided with after-hours line for [facility], , which offer night time triage service and option to transfer to certified nurse practitioner provider if needed. Patient verbalizes understanding, and able to repeat back to sports writer. documented in this encounter Plan of Treatment Upcoming Encounters Date Type Department Care Team (Late st Contact Info) Description 01/29/2025 10:15 AM EDT Office Visit [facility] MEDICINE [address] [place] [address] Farhana Horn, [address] [place] [address] documented as of this encounter Visit Diagnoses Not on filedocumented in this encounter Additional Health Concerns Assessment Noted Time PHQ-9 Depression Total Score: 4 12/09/19 24 10:18 AM EDT documented as of this encounter Care Teams Forensic Dna Analyst Relationship Specialty Start Date End Date Farhana Horn DO [address] [place] [address] PCP - General Family Medicine 09/09/18 documented as of this encounter
--- OUTSIDE RECORDS SUMMARY | 2024-11-20 09:20 | XMS_ITS | Encounter Summary ---
Author Organization [employer] Address [address] [facility] 7t [place] [address] Care Team Providers Care Field Supervisor Name Role Phone KoryFarhana Primary Care Provider + [phone] Encounter Details Date Type Department Care Team (Late st Contact Info) Description 12/20/2023 Orders Only [facility] MEDICINE [address] [place] [address] ProviderPantera MD Social History Tobacco Use Types [...] the past 12 months, has t he [employer], gas, oil or water company threatened to [...] Description 01/29/2025 10:15 AM EDT Office Visit [facility] MEDICINE [address] [place] [address] Farhana Horn DO [address] [place] [address] documented as of this encounter Procedures Procedure [...] documented as of this encounter Care Teams Field Supervisor Relationship Specialty Start Date End Date Farhana Horn DO [address] [place] [address] PCP - General Family Medicine 09/09/18 documented as of this encounter
--- OUTSIDE RECORDS SUMMARY | 2024-11-20 09:20 | XMS_ITS | Encounter Summary ---
Author Organization [employer] Address [address] [facility] [address]t [place] [address] Care Team Providers Care Senior Sales Assistant Name Role Phone Farhana Horn DO Primary Care Provider + [phone] Encounter Details Date Type Department Care Team ([facility] st Contact Info) Description 08/08/2023 Telephone [facility] [address] [place] [address] Farhana Horn DO [address] [place] [address] Social History Tobacco Use Types Packs/Day Years [...] 01/29/2025 10:15 AM EDT Office Visit [facility] [address] [place] [address] Farhana Horn DO [address] [place] [address] documented as of this encounter Visit Diagnoses Not on filedocumented in this encounter Additional Health Concerns Assessment Noted Time PHQ-9 Depression Total Score: 24 023 11:05 AM EDT documented as of this encounter Care Teams Senior Sales Assistant Relationship Specialty Start Date End Date Farhana Horn DO [address] [place] [address] PCP - General Family Medicine 09/09/18 documented as of this encounter
--- OUTSIDE RECORDS SUMMARY | 2024-11-20 09:20 | XMS_ITS | Encounter Summary ---
Author Organization [employer] Address [address] [facility] 7t [place] [address] Care Team Providers Care Cellophane Tester Name Role Phone Farhana Horn Primary Care [...] Description 01/29/2025 10:15 AM EDT Office Visit [facility] MEDICINE [address] [place] [address] Farhana Horn DO [address] [place] [address] documented as of this encounter Visit Diagnoses Not on filedocumented in this encounter Additional Health Concerns Assessment Noted Time PHQ-9 Depression Total Score: 4 12/09/19 24 10:18 AM EDT documented as of this encounter Care Teams Cellophane Tester Relationship Specialty Start Date End Date Farhana Horn DO [address] [place] [id number] PCP - General Family Medicine 09/09/18 documented as of this encounter
--- OUTSIDE RECORDS SUMMARY | 2024-11-20 09:20 | XMS_ITS | Encounter Summary ---
Author Organization [employer] Address [address] [place] [address] [address] [place] [address] Care Team Providers Care Piece Dyeing Machine Tender Name Role Phone Farhana Horn DO Primary Care Provider + [phone] Reason for Visit * Reason Onset Date Comments Nurse Triage 10/29/2024 Encounter Details Date Type Department Care Team ([facility] st Contact Info) Description 10/29/2024 Telephone [facility] [address] [place] [address] Farhana Horn DO [address] [place] [address] Nurse Triage Social History Tobacco Use Types [...] 10:17 AM EST Sent to team for [facility] status check PRN. 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 Call returned to Tri Bowens to triage [...] hours. Pt advised of disposition, agrees to [facility] ER now for exam. Protocol [...] Description 01/29/2025 10:15 AM EDT Office Visit [facility] MED[facility] [address] [place] [address] Farhana Horn DO [address] [place] [address] documented as of this encounter Visit Diagnoses Not on filedocumented in this encounter Additional Health Concerns Assessment Noted Time PHQ-9 Depression Total Score: 4 12/09/19 24 10:18 AM EDT documented as of this encounter Care Teams Piece Dyeing Machine Tender Relationship Specialty Start Date End Date Farhana Horn DO [address] [place] [address] PCP - General Family Medicine 09/09/18 documented as of this encounter
--- OUTSIDE RECORDS SUMMARY | 2024-11-20 09:20 | XMS_ITS | Encounter Summary ---
Author Organization [employer] Address [address] [place] [address] [address] [place] [address] Care Team Providers Care Platform Material Handling Supervisor Name Role Phone LizFarhana key Primary Care Provider [phone] Encounter Details Date Type Department Care Team [...] Description 01/29/2025 10:15 AM EDT Office Visit [facility] MEDICINE [address] [place], [place] [phone] Farhana Horn DO [address] [place], [place] [phone] documented as of this encounter Procedures Procedure Name Priority Date/Time Associated Diagnosis Comments HPV DNA, LOW/HIGH RISK Routine 10/27/2024 9:07 AM EST PAP SMEAR Routine 10/27/2024 9:07 AM EST documented in this encounter Results * Pap Smear (10/27/2024 9:07 AM EST) 10/27/2024 9:07 AM EST 10/27/2024 2:15 PM EST [facility] - 11/02/2024 3:56 PM EST ----- ------- Name: Tri Bowens ? Age/Sex: 53/F ? : 1970 Unit#: [id number] ?? Attend Dr: Fabio Morin MD ?Re10/27/24 ?Status: DEP REF ? Location: HO.LNP ?Disch: ? ----- ------- SPEC : [id number] ? RECD: 10/27/24 ? STATUS: ??SOUT ? REQ NUM: [id number] ? ANITA: 10/27/24 ? SUBM DR: Fabio [...] Copies To: ?? Farhana Horn DO ?? [facility] ?? [address] [facility] ?? [place] [address] ?? [phone] ?? Fabio Morin MD ?? [facility] ?? [address] [facility] [address] ?? [place] [address] ?? [phone] ----- ------- Signed (signature on file) CORI Ortez (ASCP) 11/02/24 1556 ? ----- ------- ? END OF REPORT ? us Generic External Data Provider LAB CYTOLOGY ORDE QUE Final Result [facility] [address] [facility] [place] [address] [phone] * (ABNORMAL) HPV DNA, Low/High Risk (10/27/2024 9:07 AM EST) Pathologist [facility] HPV High Risk Positive(A) Negative [facility] HPV Genotype 16 Negative Negative [facility] HPV Genotype 18 Negative Negative [facility] Comment:HPV testing performe d at [facility] (CLIA#[id number]), [address] [place] [address].Testing for HPV was performed using the Milana [...] Provider LAB BLOOD ORDERAB LES Final Result [facility] [address] [place] [phone] documented in this encounter Visit Diagnoses Not on filedocumented in this encounter Additional Health Concerns Assessment Noted Time PHQ-9 Depression Total Score: 4 12/09/19 24 10:18 AM EDT documented as of this encounter Care Teams Platform Material Handling Supervisor Relationship Specialty Start Date End Date Farhana Horn DO [address] [place] [address] PCP - General Family Medicine 09/09/18 documented as of this encounter
--- OUTSIDE RECORDS SUMMARY | 2024-11-20 09:20 | XMS_ITS | Encounter Summary ---
Author Organization [employer] Address [address] [place] [address] 7t [place] [address] Care Team Providers Care Flight Service Specialist Name Role Phone LizFarhana key Primary Care Provider [phone] Encounter Details Date Type Department Care Team [...] 10:15 AM EDT Office Visit [facility] MED[facility]INE [address] [place], [place] [phone] Farhana Horn, [address] [place], [place] [phone] documented as of this encounter Procedures Procedure [...] EST Narrative 10/29/2024 11:54 PM EST ? [facility] [facility] ?[address] ?[place] [address] ? CT Scan Report ? Signed ? Patient: Kwan,Tri ?MR#: [id number] ?? 63 ? : 1970 ?Acct:[id number] ? Age/Sex: 54 / F ?ADM Date: 10/29/24 ? Loc: HO.ED ? Attending Dr: ? Ordering Physician: Matt Nelson ?? Date of Service: 10/29/24 ?? Procedure(s): CT abdomen pelvis w IV con ?? Accession Number(s): [id number] ? cc: Farhana Horn DO; Matt Nelson ? Report Number: ?? [id number]: Total DLP = ??539.00 mGy-cm ? 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 and mild spinal [...] DD/ 52 ? TD/TT: 10/29/24 2353 ? Media Promoter: ? 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030(H) 1.005 - 1.025 [facility] Urine Protein 30 (1+)(A) Neg-Trace mg/dL [facility] Urine Ketones 15 Negative mg/dL [facility] Nitrite Urine Negative Negative [facility] Leukocyte Esterase Urine Trace(A) Negative [facility] RBC Urine 0-2 0 - 2 /HPF [facility] Urine WBC 0-5 0 - 5 /HPF [facility] Urine Squamous Epithelial Cell 3-5 0 - 2 /HPF [facility] Urine Bacteria 1+ None Seen [facility] Hyaline Casts, Urine 3-5 0 - 2 /LPF [facility] 10/29/2024 11:0 1 PM EST 10/29/2024 11:12 PM EST Narrative [facility] - 10/29/2024 11:24 PM EST Urine, Clean Catch Generic External Data Provider LAB URINE ORDERAB LES Final Result Performing Organization Address [facility] Co de Phone Number [facility] [address] [place] [phone] SARS-CoV-2 RNA, Influenza A/B, and RSV RNA, Ql NAAT (10/29/2024 12:06 PM EST) Influenza A PCR NEGATIVE Negative [facility] Influenza B PCR NEGATIVE Negative [facility] Resp Syncy Virus RNA Qual PCR NEGATIVE Negative [facility] SARS COV2 PCR NEGATIVE Negative [facility] Comment:All test results mus t [...] use by authorized laboratories.Testing performed on the [employer] GeneXpert utilizingreal-time RT-PCR.All SARS CoV2 and positive influenza A/B results arereported to [facility]. 10/29/2024 12:0 6 PM EST 10/29/2024 12:09 PM EST Generic External Data Provider LAB MICROBIOLOGY - GENERAL ORDERABLES Final Result Performing Organization Address [facility]/ZIP Co de Phone Number [facility] [address] [place] [phone] * Magnesium (10/29/2024 12:06 PM EST) Magnesium 1.9 1.6 - 2.6 mg/dL [facility] 10/29/2024 12:0 6 PM EST 10/29/2024 12:09 PM EST us Generic External Data Provider LAB BLOOD ORDERAB LES Final Result [facility] [address] [place] [phone] * (ABNORMAL) Comprehensive Metabolic Panel (10/29/2024 12:06 PM EST) Sodium 140 135 - 145 mmol/L [facility] Potassium 3.7 3.3 - 5.1 mmol/L [facility] Chloride 112(H) 96 - 108 mmol/L [facility] Carbon Dioxide 21(L) 22 - 29 mmol/L [facility] Anion Gap 11(L) 12 - 20 [facility] Urea Nitrogen (BUN) 19(H) 9 - 16 mg/dL [facility] Creatinine, Serum 0.79 0.5 - 1.4 mg/dL [facility] Creatinine Clr Calc Pharmacy 68.7 [facility] Comment:Provided height and weight: 152.4 cm,68.6 kg.eGFR (calculated from the MDRD study equation) and eCrCl(calculated from the Cockcroft-Gault equation) are based ondifferent parameters and may not yield comparable results.If eCrCl result is absurd, please check patient'sheight/weight. Estimated Glomerular Filt Rate >60 [facility] Comment:Chronic Kidney Disea se: Estimated GFR < 60 mL/min/1.10m5Aexmka Kidney Disease: Estimated GFR < 15 mL/min/1.73m2 Glucose 123(H) 60 - 115 mg/dL [facility] Calcium 9.3 8.4 - 10.2 mg/dL [facility] Bilirubin, Total 0.4 0.0 - 1.0 mg/dL [facility] Aspartate Amino Transferase 28 5 - 31 U/L [facility] Alanine Aminotransferase 41(H) 0 - 31 U/L [facility] Total Protein 8.2(H) 6.5 - 8.0 g/dL [facility] Albumin Level 4.2 3.5 - 5.0 g/dL [facility] Alkaline Phosphatase 140(H) 39 - 117 U/L [facility] 10/29/2024 12:0 6 PM EST 10/29/2024 12:09 PM EST Generic External Data Provider LAB BLOOD ORDERAB LES Final Result Performing Organization Address [facility] Co de Phone Number [facility] [address] [place] [phone] * (ABNORMAL) Prothrombin Time-INR (10/29/2024 12:06 PM EST) Prothrombin Time 12.6(H) 10.9 - 12.4 SEC [facility] INTERNATIONAL NORM RATIO 1.1 0.9 - 1.1 [facility] Comment:INTERNATIONAL NORMAL IZED RATIO [...] ORDERAB LES Final Result Performing Organization Address [facility] Co de Phone Number [facility] [address] [place] [phone] * (ABNORMAL) CBC auto differential (10/29/2024 12:06 PM EST) White Blood Count 7.4 4.8 - 10.8 X10*3/uL [facility] Red Blood Count 4.83 4.20 - 5.50 X10*6/uL [facility] Hemoglobin 13.3 12.0 - 16.0 g/dl [facility] Hematocrit 40.4 37.0 - 47.0 % [facility] Mean Corpuscular Volume 83.6 80.0 - 98.0 fL [facility] Mean Corpuscular Hemoglobin 27.5 27.0 - 33.0 pg [facility] Mean Corpuscular HGB Conc 32.9 31.0 - 35.0 g/dl [facility] Red Cell Distribution Width 13.4 11.0 - 16.0 % [facility] Platelet Count 302 160 - 400 X10*3/uL [facility] Mean Platelet Volume 8.0(L) 9.4 - 12.3 fL [facility] Neutrophils Percent Auto 45.2 45 - 73 % [facility] Imm Gran Pct Auto 0.1 0.0 - 0.4 % [facility] Lymphocytes Percent Auto 40.7(H) 20 - 40 % [facility] Monocytes Percent Auto 11.2(H) 2 - 11 % [facility] Eosinophils Percent Auto 2.4 0 - 4 % [facility] Basophils Percent Auto 0.4 0 - 2 % [facility] NRBC Pct Auto 0.0 0.0 - 0.2 /100WBC [facility] Neutrophils Absolute Auto 3.3 2.0 - 8.3 x10*3/uL [facility] Imm Gran Abs Auto 0.01 0.00 - 0.03 X10*3/uL [facility] Lymphocytes Absolute Auto 3.0 1.2 - 4.9 X10*3/uL [facility] Monocytes Absolute Auto 0.8 0.1 - 1.2 X10*3/uL [facility] Eosinophils Absolute Auto 0.2 0.0 - 0.4 X10*3/uL [facility] Basophils Absolute Auto 0.0 0.0 - 0.2 X10*3/uL [facility] NRBC Abs Auto 0.000 0.0 - 0.012 X10*3/uL [facility] 10/29/2024 12:0 6 PM EST 10/29/2024 12:09 PM EST us Generic External Data Provider LAB BLOOD ORDERAB LES Final Result [facility] [address] [place] [phone] documented in this encounter Visit Diagnoses Not on filedocumented in this encounter Additional Health Concerns Assessment Noted Time PHQ-9 Depression Total Score: 4 12/09/19 24 10:18 AM EDT documented as of this encounter Care Teams Flight Service Specialist Relationship Specialty Start Date End Date Farhana Horn DO [address] [place] [phone] PCP - General Family Medicine 09/09/18 documented as of this encounter
--- OUTSIDE RECORDS SUMMARY | 2024-11-20 09:20 | XMS_ITS | Encounter Summary ---
Author Organization [employer] Address [address] [place] [address] [address] [place] [address] Care Team Providers Care Field Cane Scale Clerk Name Role Phone Farhana Horn DO Primary Care Provider + [phone] Reason for Visit * Reason Comments Med Refill Encounter Details Date Type Department Care Team ([facility] st Contact Info) Description 10/23/2024 Refill [facility] MEDICINE [address] [place] [address] Farhana Horn DO [address] [place] [address] Seasonal allergic rhinitis, unspecified trigger Social History [...] Description 01/29/2025 10:15 AM EDT Office Visit [facility] MEDICINE [address] [place] [address] Farhana Honr DO [address] [place] [address] documented as of this encounter Visit Diagnoses Diagnosis Seasonal allergic rhinitis, unspecified trigger documented in this encounter Additional Health Concerns Assessment Noted Time PHQ-9 Depression Total Score: 4 12/09/19 24 10:18 AM EDT documented as of this encounter Care Teams Field Cane Scale Clerk Relationship Specialty Start Date End Date Farhana Horn DO [address] [place] [phone] PCP - General Family Medicine 09/09/18 documented as of this encounter
--- OUTSIDE RECORDS SUMMARY | 2024-11-20 09:20 | XMS_ITS | Encounter Summary ---
Author Organization [employer] Address [address] [facility] 7t [place] [address] Care Team Providers Care Junior Marketing Associate Name Role Phone Farhana Horn Primary Care [...] 01/29/2025 10:15 AM EDT Office Visit [facility] MEDICINE [address] [place] [address] Farhana Horn DO [address] [place] [address] documented as of this encounter Visit Diagnoses Not on filedocumented in this encounter Additional Health Concerns Assessment Noted Time PHQ-9 Depression Total Score: 4 12/09/19 24 10:18 AM EDT documented as of this encounter Care Teams Junior Marketing Associate Relationship Specialty Start Date End Date Farhana Horn DO [address] [place] [phone] PCP - General Family Medicine 09/09/18 documented as of this encounter
--- OUTSIDE RECORDS SUMMARY | 2024-11-20 09:20 | XMS_ITS | Encounter Summary ---
Author Organization [employer] Address [address] [place] [address] 7[address] [place] [address] Care Team Providers Care Wire Weaving Loom Setter Name Role Phone Farhana Horn DO Primary Care Provider + [phone] Reason for Visit * Reason Onset Date Comments Care Coordination 11/09/2024 C3CM initial a ssessment/ enrollment Encounter Details Date Type Department Care Team ([facility] st Contact Info) Description 11/09/2024 Telephone [facility] P[facility] [address] [place] [address] Farhana Horn DO [address] [facility] [place] [address] Care Coordination (C3 initial assessment/ enrollment) Social [...] 1:02 PM EST Pt is requesting for [facility] referral for depression * Telephone Encounter - [...] month 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 Pt states she owns on her utilities. [...] to her upcoming appointment so that the insulation inspector can review it. Pt however reports compliant [...] understanding, and able to repeat back to creative services writer. A follow up call will be placed [...] Description 01/29/2025 10:15 AM EDT Office Visit [facility] MEDICINE [address] [place] [address] Farhana Horn DO [address] [place] [address] documented as of this encounter Visit Diagnoses Not on filedocumented in this encounter Additional Health Concerns Assessment Noted Time PHQ-9 Depression Total Score: 4 12/09/19 24 10:18 AM EDT documented as of this encounter Care Teams Wire Weaving Loom Setter Relationship Specialty Start Date End Date Farhana Horn DO [address] [place] [phone] PCP - General Family Medicine 09/09/18 documented as of this encounter
--- OUTSIDE RECORDS SUMMARY | 2024-11-20 09:20 | XMS_ITS | Clinical Summary ---
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 JUL 2023 -STI/HIV screen [...] nightly -s/p optho eval Apr 2023 at [facility] -foot exam next visit* Allergic rhinitis [...] -f/u with neurology as scheduled -advised contact [facility] if no improvement Irritable bowel syndrome [...] DEPARTMENT Provider, Generic External Data 11/09/2024 Telephone [facility] [address] [place] [address] Farhana Horn DO Care Coordination ([facility] initial assessment/ enrollment) 11/05/2024 Patient Outreach [facility] [address] [place] [address] Farhana Horn DO Care Coordination (Outreach) 11/04/2024 10:00 AM EST Office Visit [address] [address] Farhana Horn DO Generalized abdominal pain (Primary Dx); Cough with hemoptysis; Generalized weakness; Type 2 diabetes mellitus without complication, without long-term current use of insulin ([facility]) 11/04/2024 Orders Only [facility] External Provider, [facility] 11/04/2024 Travel 10/29/2024 Orders Only GENERIC EXTERNAL DATA DEPARTMENT Provider, Generic External Data 10/29/[address] [address] Farhana Horn DO Nurse Triage 10/29/[address] [address] Farhana Horn DO Appointment Request 10/27/2024 Orders Only GENERIC EXTERNAL DATA DEPARTMENT Provider, Generic External Data 10/23/2024 Refill [facility] MEDICINE [address] [place] [address] Farhana Horn DO Seasonal allergic rhinitis, unspecified trigger 10/22/2024 2:00 PM EST Office Visit [facility] OPTOMETRY [address] [place] [address] Steven, Danette, OD Diabetes type 2, no ocular involvement (CMS/[facility]) (Primary Dx); Headache, unspecified headache type; Vitelliform lesion of macula; Combined forms of age-related cataract of both eyes; Meibomian gland disease, unspecified laterality; Presbyopia 10/22/2024 Travel 10/21/2024 Travel 10/15/2024 Telephone [facility] MEDICINE [address] [place] [address] Suhda Doss [place] Recall Letter (Recall Letter sent 10/15/24.) 09/21/2024 Refill [facility] [address] [place] [address] Farhana Horn DO 09/08/2024 Refill [facility] MEDICINE [address] [place] [address] Farhana Horn DO 09/04/2024 Orders Only GENERIC [...] Description 01/29/2025 10:15 AM EDT Office Visit [facility] MED[facility]INE [address] [place], [place] [phone] Farhana Horn DO [address] [place] [address] Health Maintenance Due Date Last Done Comments [...] DNA, LOW/HIGH RISK Routine 9:07 AM EST OCT, RETINA - OU - BOTH EYES Routine 10/22/2024 2:00 PM EST Vitelliform lesion of macula BI MAMMOGRAM SCREENING TOMOSYNTHESIS BILATERAL Routine 09/23/2024 [...] Whole Blood 165(H) 60 - 115 mg/dL [facility] Comment:METER #: [id number] Testing performed in the Endocrinology Department [address] , [address], [place]. 11/13/2024 9:04 AM EST 11/13/2024 9:12 AM EST us Generic External Data Provider LAB BLOOD ORDERAB LES Final Result [facility] [address] [place] [phone] * (ABNORMAL) SARS-CoV-2 RNA, Influenza A/B, and RSV RNA, Ql NAAT (11/04/2024 2:59 PM EST) Only the most recent of2 resultswithin the time period is included. Influenza A PCR POSITIVE(A) Negative [facility] Influenza B PCR NEGATIVE Negative [facility] Resp Syncy Virus RNA Qual PCR NEGATIVE Negative [facility] SARS COV2 PCR NEGATIVE Negative [facility] Comment:All test results mus [...] use by authorized laboratories.Testing performed on the [employer] GeneXpert utilizingreal-time RT-PCR.All SARS CoV2 and positive influenza A/B results arereported to [facility]. 11/04/2024 2:59 PM EST 11/04/2024 3:03 PM EST us Generic External Data Provider LAB MICROBIOLOGY - GENERAL ORDERABLES Final Result Performing Organization Address City/State/[facility] Co de Phone Number [facility] [address] [place] [phone] * CTA Chest PE Protocal (11/04/2024 1:16 PM EST) Anatomical Region Laterality Modality Body, Chest Computed Tomogra phy 11/04/2024 1:16 PM EST Narrative 11/04/2024 1:38 PM EST ? [facility] ?[address] ?[place] [address] ? CT Scan Report ? Signed ? Patient: Kwan,Tri ?MR#: [id number] ?? 63 ? : 1970 ?Acct:[id number] ? Age/Sex: 54 / F ?ADM Date: 02/26/25 ? Loc: HO.ED ? Attending Dr: ? Ordering Physician: Brenden Denton MD ?? Date of Service: 11/04/24 ?? Procedure(s): CT angio chest PE protocol ?? Accession Number(s): [id number] ? cc: Brenden Denton MD; Farhana Horn DO ? Report Number: ?? [id number]: Total DLP = ??278.00 mGy-cm ?? EXAMINATION: [...] DD/ 1316 ? TD/TT: 11/04/24 1316 ? Methods Study Analyst: ? Procedure Note Donotjonnainterpreter, Image - 11/04/[address] [place] [address] [address] Scan Report Signed Patient: Wang Bowens#: [id number] 63 : 1970Acct:[id number] Age/Sex: 54 / FADM Date: 11/04/24 Loc: HO.ED Attending Dr: Ordering Physician: Brenden Denton MD Date of Service: 11/04/24 Procedure(s): CT angio chest PE protocol Accession Number(s): [id number] cc: Brenden Denton MD; Farhana Horn DO Report Number: [id number]: Total DLP = 278.00 mGy-cm EXAMINATION: CT [...] 11/04/24 1334 DD/ 1316 TD/TT: 11/04/24 1316 Methods Study Analyst: [facility] External Provider IMG CT PROCEDURES Final Result * CT Abdomen Pelvis w/ Contrast (11/04/2024 11:43 AM EST) Only the most recent of2 resultswithin the time period is included. Anatomical Region Laterality Modality Body, Pelvis, Abdomen Computed T omography 11/04/2024 11:4 3 AM EST Narrative 11/04/2024 1:32 PM EST ? [facility] ?[address] ?[place] [address] ? CT Scan Report ? Signed ? Patient: Kwan,Tri ?MR#: [id number] ?? 63 ? : 1970 ?Acct:[id number] ? Age/Sex: 54 / F ?ADM Date: 02/26/25 ? Loc: HO.ED ? Attending Dr: ? Ordering Physician: Brenden Denton MD ?? Date of Service: 11/04/24 ?? Procedure(s): CT abdomen pelvis w IV con ?? Accession Number(s): [id number] ? cc: Brenden Denton MD; Farhana Horn DO ? Report Number: ?? [id number]: Total DLP = ??462.00 mGy-cm ?? EXAMINATION: [...] DD/ 1143 ? TD/TT: 11/04/24 1316 ? Methods Study Analyst: ? Procedure Note Juice, Image - 11/04/[address] [address] [address] Scan Report Signed Patient: Wnag Bowens#: [id number] 63 : 1970Acct:[id number] Age/Sex: 54 / FADM Date: 11/04/24 Loc: HO.ED Attending Dr: Ordering Physician: Brenden Denton MD Date of Service: 11/04/24 Procedure(s): CT abdomen pelvis w IV con Accession Number(s): [id number] cc: Brenden Denton MD; Farhana Horn DO Report Number: [id number]: Total DLP = 462.00 mGy-cm EXAMINATION: CT [...] 11/04/24 1328 DD/ 1143 TD/TT: 11/04/24 1316 Methods Study Analyst: [facility] External Provider IMG CT PROCEDURES Final Result * (ABNORMAL) POCT HGB A1C (11/04/2024 10:14 AM EST) Hemoglobin A1C 6.5(A) 4.0 - 6.0 % QC Media Lot # [id number] Lot# Expiration Date Blood 11/04/2024 10:1 4 AM EST Farhana [...] 11:01 PM EST) Color Urine Dark Yellow [facility] Appearance Urine Cloudy [facility] PH 5.5 5.0 - 9.0 [facility] Glucose Urine UA Negative Negative mg/dL [facility] Urine Blood Negative Negative [facility] Specific [place] - Urine >=1.030(H) 1.005 - 1.025 [facility] Urine Protein 30 (1+)(A) Neg-Trace mg/dL [facility] Urine Ketones 15 Negative mg/dL [facility] Nitrite Urine Negative Negative [facility] Leukocyte Esterase Urine Trace(A) Negative [facility] RBC Urine 0-2 0 - 2 /HPF [facility] Urine WBC 0-5 0 - 5 /HPF [facility] Urine Squamous Epithelial Cell 3-5 0 - 2 /HPF [facility] Urine Bacteria 1+ None Seen [facility] Hyaline Casts, Urine 3-5 0 - 2 /LPF [facility] 10/29/2024 11:0 1 PM EST 10/29/2024 11:12 PM EST Narrative [facility] - 10/29/2024 11:24 PM EST Urine, Clean Catch us Generic External Data Provider LAB URINE ORDERAB LES Final Result Performing Organization Address City/State/[facility] Co de Phone Number [facility] [address] [place] [phone] * (ABNORMAL) CBC auto differential (10/29/2024 12:06 PM EST) White Blood Count 7.4 4.8 - 10.8 X10*3/uL [facility] Red Blood Count 4.83 4.20 - 5.50 X10*6/uL [facility] Hemoglobin 13.3 12.0 - 16.0 g/dl [facility] Hematocrit 40.4 37.0 - 47.0 % [facility] Mean Corpuscular Volume 83.6 80.0 - 98.0 fL [facility] Mean Corpuscular Hemoglobin 27.5 27.0 - 33.0 pg [facility] Mean Corpuscular HGB Conc 32.9 31.0 - 35.0 g/dl [facility] Red Cell Distribution Width 13.4 11.0 - 16.0 % [facility] Platelet Count 302 160 - 400 X10*3/uL [facility] Mean Platelet Volume 8.0(L) 9.4 - 12.3 fL [facility] Neutrophils Percent Auto 45.2 45 - 73 % [facility] Imm Gran Pct Auto 0.1 0.0 - 0.4 % [facility] Lymphocytes Percent Auto 40.7(H) 20 - 40 % [facility] Monocytes Percent Auto 11.2(H) 2 - 11 % [facility] Eosinophils Percent Auto 2.4 0 - 4 % [facility] Basophils Percent Auto 0.4 0 - 2 % [facility] NRBC Pct Auto 0.0 0.0 - 0.2 /100WBC [facility] Neutrophils Absolute Auto 3.3 2.0 - 8.3 x10*3/uL [facility] Imm Gran Abs Auto 0.01 0.00 - 0.03 X10*3/uL [facility] Lymphocytes Absolute Auto 3.0 1.2 - 4.9 X10*3/uL [facility] Monocytes Absolute Auto 0.8 0.1 - 1.2 X10*3/uL [facility] Eosinophils Absolute Auto 0.2 0.0 - 0.4 X10*3/uL [facility] Basophils Absolute Auto 0.0 0.0 - 0.2 X10*3/uL [facility] NRBC Abs Auto 0.000 0.0 - 0.012 X10*3/uL [facility] 10/29/2024 12:0 6 PM EST 10/29/2024 12:09 PM EST us Generic External Data Provider LAB BLOOD ORDERAB LES Final Result Performing Organization Address [facility] Co de Phone Number [facility] [address] [place] [address] [phone] * (ABNORMAL) Prothrombin Time-INR (10/29/2024 12:06 PM EST) Prothrombin Time 12.6(H) 10.9 - 12.4 SEC [facility] INTERNATIONAL NORM RATIO 1.1 0.9 - 1.1 [facility] Comment:INTERNATIONAL NORMAL IZED RATIO (INR) [...] Final Result Performing Organization Address [facility] Co de Phone Number [facility] [address] [place] [phone] * Magnesium (10/29/2024 12:06 PM EST) Pathologist [facility] Magnesium 1.9 1.6 - 2.6 mg/dL [facility] 10/29/2024 12:0 6 PM EST 10/29/2024 12:09 PM EST us Generic External Data Provider LAB BLOOD ORDERAB LES Final Result Performing Organization Address [facility] Co de Phone Number [facility] [address] [place] [address] [phone] * (ABNORMAL) Comprehensive Metabolic Panel (10/29/2024 12:06 PM EST) Sodium 140 135 - 145 mmol/L [facility] Potassium 3.7 3.3 - 5.1 mmol/L [facility] Chloride 112(H) 96 - 108 mmol/L [facility] Carbon Dioxide 21(L) 22 - 29 mmol/L [facility] Anion Gap 11(L) 12 - 20 [facility] Urea Nitrogen (BUN) 19(H) 9 - 16 mg/dL [facility] Creatinine, Serum 0.79 0.5 - 1.4 mg/dL [facility] Creatinine Clr Calc Pharmacy 68.7 [facility] Comment:Provided height and weight: 152.4 cm,68.6 kg.eGFR (calculated from the MDRD study equation) and eCrCl(calculated from the Cockcroft-Gault equation) are based ondifferent parameters and may not yield comparable results.If eCrCl result is absurd, please check patient'sheight/weight. Estimated Glomerular Filt Rate >60 [facility] Comment:Chronic Kidney Disea se: Estimated GFR < 60 mL/min/1.69w1Fwaraj Kidney Disease: Estimated GFR < 15 mL/min/1.73m2 Glucose 123(H) 60 - 115 mg/dL [facility] Calcium 9.3 8.4 - 10.2 mg/dL [facility] Bilirubin, Total 0.4 0.0 - 1.0 mg/dL [facility] Aspartate Amino Transferase 28 5 - 31 U/L [facility] Alanine Aminotransferase 41(H) 0 - 31 U/L [facility] Total Protein 8.2(H) 6.5 - 8.0 g/dL [facility] Albumin Level 4.2 3.5 - 5.0 g/dL [facility] Alkaline Phosphatase 140(H) 39 - 117 U/L [facility] 10/29/2024 12:0 6 PM EST 10/29/2024 12:09 PM EST us Generic External Data Provider LAB BLOOD ORDERAB LES Final Result [facility] [address] [place] [address] [phone] * (ABNORMAL) HPV DNA, Low/High Risk (10/27/2024 9:07 AM EST) HPV High Risk Positive(A) Negative [facility] HPV Genotype 16 Negative Negative [facility] HPV Genotype 18 Negative Negative [facility] Comment:HPV testing performe d at [facility] (CLIA#[id number]), [address] [place] [phone].Testing for HPV was performed using the Existence Before [employer]ence DESIRAE 6800system. The presence of HPV in [...] ORDERAB LES Final Result Performing Organization Address City/State/[facility] Co de Phone Number [facility] [address] [place] [phone] * Pap Smear (10/27/2024 9:07 AM EST) 10/27/2024 9:07 AM EST 10/27/2024 2:15 PM EST Narrative [facility] - 11/02/2024 3:56 PM EST ----- ------- Name: Tri Bowens ? Age/Sex: 53/F ? : 1970 Unit#: [id number] ?? Attend Dr: Fabio Morin MD ?Re10/27/24 ?Status: DEP REF ? Location: HO.LNP ?Disch: ? ----- ------- SPEC : [id number] ? RECD: 10/27/24 ? STATUS: ??SOUT ? REQ NUM: [id number] ? ANITA: 10/27/24 ? SUBM DR: Fabio [...] Copies To: ?? Farhana Horn DO ?? [facility] ?? [address] [facility] ?? [place] [address] ?? [phone] ?? Fabio Morin MD ?? [facility] Women's Services ?? [address] ?? [place] [address] ?? [phone] ----- ------- Signed (signature on file) CORI Ortez (ASCP) 11/02/24 3260 ? ----- ------- ? END OF REPORT ? us Generic External Data Provider LAB CYTOLOGY NUBIAE QUE Final Result [facility] [address] [place] [address] [phone] * OCT, Retina - OU - Both [...] 1 year, sooner with changes in vision. us Danette Harris OD OPHTH TOMOGRAPHY Final Result * BI Mammogram Screening Tomosynthesis Bilateral (09/23/2024 10:30 AM EST) Anatomical Region Laterality Modality Breast Bilateral Mammography 09/23/2024 10:3 0 AM EST Narrative 10/04/2024 9:14 AM EST ? [facility] ? [address] ?[place] [address] ? Mammography Report ? Signed ? Patient: Tri Bowens ?MR#: [id number] ?? 63 ? : 1970 ?Acct:[id number] ? Age/Sex: 53 / F ?ADM Date: 01/15/25 ? Loc: HO.MAMMO ? Attending Dr: Farhana Horn DO ? Ordering Physician: Farhana Horn DO ?Results: 1N ?? egative ? Date of Service: 09/23/24 ?Follow Up: 1 Year From Orig ?? inal Mammogram ? Procedure(s): MM tomosynthesis screening BI ?? Accession Number(s): [id number] ? cc: Farhana Horn DO ? EXAMINATION: [...] DD/ 1030 ? TD/TT: 09/23/24 1041 ? Methods Study Analyst: ? Procedure Note Juice, Image - 10/04/[address] [facility] [address] [place] [address] Mammography Report Signed Patient: Wang Bowens#: [id number] 63 : 1970Acct:[id number] Age/Sex: 53 / FADM Date: 09/23/24 Loc: HO.MAMMO Attending Dr: Farhana Horn DO Ordering Physician: Farhana Hornults: 1N egative Date of Service: 09/23/24Follow Up: 1 Year From Orig inal Mammogram Procedure(s): MM tomosynthesis screening BI Accession Number(s): [id number] cc: Farhana Horn DO EXAMINATION: MM SCREENING [...] Vázquez DO Signed By: <Electronically signed by Francai Vázquez DO in OV> 10/04/24 0911 DD/ 1030 TD/TT: 09/23/24 1041 Methods Study Analyst: Farhana Horn DO IMG BI PROCEDURES Edited Res ult - Final * Hematoxylin and Eosin Stain (09/04/2024 10:52 AM EST) 09/04/2024 10:5 2 AM EST 09/04/2024 11:33 AM EST Narrative [facility] - 09/11/2024 8:22 AM EST ----- ------- Name: Tri Bowens ? Age/Sex: 53/F ? : 1970 Unit#: [id number] ?? Attend Dr: Nani Bonner MD ?Re09/04/24 ?Status: DEP SDC ? Location: HO.SSS ?Disch: ? ----- ------- SPEC : [id number] ? RECD: 09/04/24-113 ? STATUS: ??SOUT ? REQ NUM: [id number] ? ANITA: 09/04/24-1052 ? SUBM DR: Nani [...] ? Age/Sex: 53/F ? : 1970 Unit#: [id number] ?? Attend Dr: Nani Bonner MD ?Re09/04/24 ?Status: DEP SDC ? Location: HO.SSS ?Disch: ? ----- ------- SPEC : [id number] ? RECD: 09/04/24-651 ? STATUS: ??SOUT ? REQ NUM: [id number] ? ANITA: 09/04/24-105 ? SUBM DR: Nani Bonner MD ? ENTERED: ??[id number] ?SP TYPE: Surgical ? OTHR : Farhana [...] Copies To: ?? Farhana Horn DO ?? [facility] ?? [address] ?? [place] [address] ?? [phone] ?? Nani Bonner MD ?? [facility] Gastro[facility]ology Services ?? [address] ?? [place] [address] ?? [phone] ?? [email or web address] ----- ------- Signed (signature on file) Deb Moi 09/07/24 1557 ? ----- ------- ? END OF REPORT ? us Generic External Data Provider LAB BLOOD ORDERAB LES Final Result Performing Organization Address [facility] de Phone Number [facility] [address] [place] [phone] * Glucose, Whole Blood (09/04/2024 10:10 AM EST) Glucose, Whole Blood 107 60 - 115 mg/dL [facility] Comment:METER #: [id number] 09/04/2024 10:1 0 AM EST 09/04/2024 10:18 AM EST Generic External Data Provider LAB BLOOD ORDERAB LES Final Result Performing Organization Address [facility] de Phone Number [facility] [address] [place] [address] [phone] * Albumin, Random Urine W/Creatinine (07/26/2023 12:26 PM EST) Creatinine, Urine 182.16 mg/dL [facility] Microalbumin Urine 14.0 mg/L [facility] Microalbum Creatinine Ratio Ur 7.6 <30 ug/mg cr [facility] Comment:Albumin/Creatinine R atio Reference Ranges: Normal: < 30 ug/mg creatinine Microalbuminuria: 30 - 300 ug/mg creatinineClinical Albuminuria: > 300 ug/mg creatinine 07/26/2023 12:2 6 PM EST 07/26/2023 1:28 PM EST Farhana Horn DO LAB URINE ORDERABLES Final R esult Performing Organization Address [facility] Co de Phone Number [facility] [address] [place] [phone] * (ABNORMAL) Lipid Panel, Standard (07/26/2023 12:23 PM EST) Triglycerides 132 <150 mg/dL [facility] Comment:Desirable Triglyceri de: less than 150 mg/dLBorderline High Triglyceride 150-199 mg/dLHigh Triglyceride: 200-499 mg/dLVery High Triglyceride: greater than or equal to 5OO mg/dL Cholesterol 150 <200 mg/dL [facility] Comment:Desirable Cholestero l: less than 200 mg/dLBorderline High Cholesterol: 200-239 mg/dLHigh Cholesterol: greater than 239 mg/dL LDL Cholesterol Calculated 85 <100 mg/dL [facility] Comment:Desirable LDL: less than 100 mg/dLNear Optimal/Above Optimal LDL: 110- 129 mg/dLBorderline High LDL: 130-159 mg/dLHigh LDL: 160-189 mg/dLVery High LDL: greater than or equal to 190 mg/dL HDL Cholesterol 39(L) >40 mg/dL [facility] Comment:Desirable HDL: great er than 40 mg/dL Note: This HDL assay may give artificially low results in patients with liver disease. Blood Venous blood specimen / Unknown 07/26/2023 12:23 PM EST 07/26/2023 1:26 PM EST Farhana Horn DO LAB BLOOD ORDERABLES Final R esult Performing Organization Address [facility]/ZIP Co de Phone Number [facility] [address] [place] [phone] * HEPATITIS C AB W/REFL TO [...] a test for HCV RNA (test code 61098) is suggested. ?? For additional information please refer to http://Scrip-t.KnoCo/faq/GUG29h5 (This link is being provided for informational/ [...] ? For additional information please refer to http://Scrip-t.KnoCo/faq/JCL817 (This link is being provided for informational/ educational purposes only.) ? The performance of this assay has not been clinically validated in patients less than 2 years old. ?? 07/09/2022 8:24 AM EDT us Farhana Horn DO LAB BLOOD ORDERABLES Final R esult [facility] * Hm Colonoscopy (01/27/2019 8:43 AM EDT) Historical Provider MD HEALTH MAINTENANCE Final Result from Last 3 Months or Most Recently Relevant to Health Maintenance Insurance [employer] Care Teams Paper Colorer Relationship Specialty Start Date End Date Frahana Horn DO [address] [place] [address] PCP - General Family Medicine 09/09/18
--- OUTSIDE RECORDS SUMMARY | 2024-11-20 09:20 | XMS_ITS | Encounter Summary ---
Author Organization [employer] Address [address] [place] [address] [address] [place] [address] Care Team Providers Care Supervisor Cab Name Role Phone Farhana Horn DO Primary Care Provider + [phone] Reason for Visit * Reason Onset Date Comments Appointment Request 10/29/2024 Encounter Details Date Type Department Care Team ([facility] Contact Info) Description 10/29/2024 Telephone [facility] MEDICINE [address] [place] [address] Farhana Horn DO [address] [place] [address] Appointment Request Social History Tobacco Use Types [...] Description 01/29/2025 10:15 AM EDT Office Visit [facility] MED[facility] [address] [place] [address] Farhana Horn DO [address] [place] [address] documented as of this encounter Visit Diagnoses Not on filedocumented in this encounter Additional Health Concerns Assessment Noted Time PHQ-9 Depression Total Score: 4 12/09/19 24 10:18 AM EDT documented as of this encounter Care Teams Supervisor Cab Relationship Specialty Start Date End Date Farhana Horn DO [address] [place] [address] PCP - General Family Medicine 09/09/18 documented as of this encounter
--- OUTSIDE RECORDS SUMMARY | 2024-11-20 09:21 | XMS_ITS | Encounter Summary ---
Author Organization [employer] [facility] Address [address] [place] [address] [address] [place] [address] Care Team Providers Care Aircraft Parts Assembler Name Role Phone Farhana Horn DO Primary Care Provider Encounter Details Date Type Department Care Team (Latest Contact Info) Description 10/16/2019 Abstract [facility] CONVERSION[facility] Dental, Provider, DDS Social History [...] Description 01/29/2025 10:15 AM EDT Office Visit [facility] MEDIC[facility] [address] [place] [address] Farhana Horn DO [address] [place] [address] documented as of this encounter Visit Diagnoses Not on filedocumented in this encounter Care Teams Aircraft Parts Assembler Relationship Specialty Start Date End Date Farhana Horn DO [address] [place] [address] PCP - General Family Medicine 09/09/18 documented as of this encounter
--- OUTSIDE RECORDS SUMMARY | 2024-11-20 09:21 | XMS_ITS | Encounter Summary ---
Author Organization [employer] Address [address] [place] [address] 7t [place] [address] Care Team Providers Care Supervisor Sewer Maintenance Name Role Phone Farhana Horn DO Primary Care Provider + [phone] Encounter Details Date Type Department Care Team ([facility] st Contact Info) Description 11/04/2024 10:00 AM EST Office Visit [facility] [address] [place] [address] Farhana Horn DO [address] [place] [address] Generalized abdominal pain (Primary Dx); Cough with hemoptysis; Generalized weakness; Type 2 diabetes mellitus without complication, without long-term current use of insulin ([facility]) Social History Tobacco Use Types Packs/Day Years [...] Description 01/29/2025 10:15 AM EDT Office Visit [facility] MED[facility]INE [address] [place] [address] Farhana Horn DO [address] [place] [address] documented as of this encounter Procedures Procedure Name Priority Date/Time Associated Diagnosis Comments POCT GLYCATED HEMOGLOBIN, TOTAL Routine 11/04/2024 10:14 AM EST Type 2 diabetes mellitus without complication, without long-term current use of insulin ([facility]) POCT GLUCOSE Routine 11/04/2024 10:14 AM EST Type 2 diabetes mellitus without complication, without long-term current use of insulin ([facility]) documented in this encounter Results * POCT Glucose (11/04/2024 10:14 AM EST) Glucose Blood, POC 141 60 - 200 mg/dL QC Media Lot # [id number] Lot# Expiration Date [id number] Blood Capillary blood specimen / Unknown 11/04/2024 10:14 AM EST Farhana Horn DO POINT OF CARE TEST ENTER/PAUL T ORDERABLES Final Result * (ABNORMAL) POCT HGB A1C (11/04/2024 10:14 AM EST) Hemoglobin A1C 6.5(A) 4.0 - 6.0 % QC Media Lot # [id number] Lot# Expiration Date ,423 Blood 11/04/2024 10:1 4 AM EST Farhana Horn DO POINT OF CARE TEST ENTER/PAUL T ORDERABLES Final Result documented in this encounter Visit Diagnoses Diagnosis Generalized abdominal pain- Primary Abdominal pain, generalized Cough with hemoptysis Generalized weakness Type 2 diabetes mellitus without complication, without long-term current use of insulin ([facility]) documented in this encounter Additional Health Concerns Assessment Noted Time PHQ-9 Depression Total Score: 4 12/09/19 24 10:18 AM EDT documented as of this encounter Care Teams Supervisor Sewer Maintenance Relationship Specialty Start Date End Date Farhana Horn DO [address] [place] [address] PCP - General Family Medicine 09/09/18 documented as of this encounter
--- OUTSIDE RECORDS SUMMARY | 2024-11-20 09:21 | XMS_ITS | Encounter Summary ---
Author Organization [employer] Address [address] [place] [address] 7[address] [place] [address] Care Team Providers Care Enrichment Teacher Name Role Phone Farhana Horn DO Primary Care Provider + [phone] Reason for Visit * Reason Comments Med Refill Encounter Details Date Type Department Care Team (Late Contact Info) Description 12/13/2022 Refill [facility] MED & PEDS [address] [place] [address] [facility] [address] [place] [address] Hyperlipidemia, unspecified hyperlipidemia type Social History Tobacco [...] Description 01/29/2025 10:15 AM EDT Office Visit [facility] MEDICINE [address] [place] [address] Farhana Horn DO [address] [place] [address] documented as of this encounter Visit Diagnoses Diagnosis Hyperlipidemia, unspecified hyperlipidemia type documented in this encounter Care Teams Enrichment Teacher Relationship Specialty Start Date End Date Farhana Horn DO [address] [place] [address] PCP - General Family Medicine 09/09/18 documented as of this encounter
--- OUTSIDE RECORDS SUMMARY | 2024-11-20 09:21 | XMS_ITS | Encounter Summary ---
Author Organization [employer] Address [address] [facility] 7t [place] [address] Care Team Providers Care Display Fabricator Name Role Phone LizFarhana eky Primary Care Provider + [phone] Encounter Details Date Type Department Care Team (Late st Contact Info) Description 11/04/2024 Orders Only [facility] External Provider, [facility] Social History Tobacco Use Types Packs/Day [...] Description 01/29/2025 10:15 AM EDT Office Visit [facility] MEDICINE [address] [place], [place] [phone] Farhana Horn DO [address] [place], [place] [phone] documented as of this encounter Procedures Procedure [...] PM EST) Influenza A PCR POSITIVE(A) Negative [facility] Influenza B PCR NEGATIVE Negative [facility] Resp Syncy Virus RNA Qual PCR NEGATIVE Negative [facility] SARS COV2 PCR NEGATIVE Negative [facility] Comment:All test results mus t [...] use by authorized laboratories.Testing performed on the [employer] GeneXpert utilizingreal-time RT-PCR.All SARS CoV2 and positive influenza A/B results arereported to [facility]. 11/04/2024 2:59 PM EST 11/04/2024 3:03 PM EST us Generic External Data Provider LAB MICROBIOLOGY - GENERAL ORDERABLES Final Result [facility] [address] [place] [address] [phone] * CTA Chest PE Protocal (11/04/2024 1:16 PM EST) Anatomical Region Laterality Modality Body, Chest Computed Tomogra phy 11/04/2024 1:16 PM EST Narrative 11/04/2024 1:38 PM EST ? [facility] ?[address] ?[place] [address] ? CT Scan Report ? Signed ? Patient: Tri Bowens ?MR#: [id number] ?? 63 ? : 1970 ?Acct:[id number] ? Age/Sex: 54 / F ?ADM Date: 11/04/24 ? Loc: HO.ED ? Attending Dr: ? Ordering Physician: Brenden Denton MD ?? Date of Service: 11/04/24 ?? Procedure(s): CT angio chest PE protocol ?? Accession Number(s): [id number] ? cc: Brenden Denton MD; Farhana Horn DO ? Report Number: ?? [id number]: Total DLP = ??278.00 mGy-cm ?? EXAMINATION: [...] DD/ 1316 ? TD/TT: 11/04/24 1316 ? Environmental Health And Safety Manager: ? Procedure Note Wai Bose - 11/04/[address] [address] [address] Scan Report Signed Patient: Tri Bowens#: [id number] 63 : 1970Acct:[id number] Age/Sex: 54 / FADM Date: 11/04/24 Loc: HO.ED Attending Dr: Ordering Physician: Brenden Denton MD Date of Service: 11/04/24 Procedure(s): CT angio chest PE protocol Accession Number(s): [id number] cc: Brenden Denton MD; Farhana Horn DO Report Number: [id number]: Total DLP = 278.00 mGy-cm EXAMINATION: CT [...] by: Yariel Brooks MD 11/04/2024 01:34 PM [facility] Dictated By: Yariel Buchanan MD Signed By: <Electronically signed by Yariel Garcia MDin OV> 11/04/24 1334 DD/ 1316 TD/TT: 11/04/24 1316 Environmental Health And Safety Manager: [facility] External Provider IMG CT PROCEDURES Final Result * CT Abdomen Pelvis w/ Contrast (11/04/2024 11:43 AM EST) Anatomical Region Laterality Modality Body, Pelvis, Abdomen Computed T omography 11/04/2024 11:4 3 AM EST Narrative 11/04/2024 1:32 PM EST ? [facility] ?[address] ?[place] [address] ? CT Scan Report ? Signed ? Patient: Kwan,Tri ?MR#: [id number] ?? 63 ? : 1970 ?Acct:[id number] ? Age/Sex: 54 / F ?ADM Date: 11/04/24 ? Loc: HO.ED ? Attending Dr: ? Ordering Physician: Brenden Denton MD ?? Date of Service: 11/04/24 ?? Procedure(s): CT abdomen pelvis w IV con ?? Accession Number(s): [id number] ? cc: Brenden Denton MD; Farhana Horn DO ? Report Number: ?? [id number]: Total DLP = ??462.00 mGy-cm ?? EXAMINATION: [...] DD/ 1143 ? TD/TT: 11/04/24 1316 ? Environmental Health And Safety Manager: ? Procedure Note Doncitlalyter, Image - 11/04/[address] [place] [address] [address] Scan Report Signed Patient: Wang Bowens#: [id number] 63 : 1970Acct:[id number] Age/Sex: 54 / FADM Date: 11/04/24 Loc: HO.ED Attending Dr: Ordering Physician: Brenden Denton MD Date of Service: 11/04/24 Procedure(s): CT abdomen pelvis w IV con Accession Number(s): [id number] cc: Brenden Denton MD; Farhana Horn DO Report Number: [id number]: Total DLP = 462.00 mGy-cm EXAMINATION: CT [...] by: Yariel Brooks MD 11/04/2024 01:28 PM [facility] Dictated By: Yariel Buchanan MD Signed By: <Electronically signed by Yariel Garcia MDin OV> 11/04/24 1328 DD/ 1143 TD/TT: 11/04/24 1316 Environmental Health And Safety Manager: [facility] External Provider IMG CT PROCEDURES Final Result documented in this encounter Visit Diagnoses Not on filedocumented in this encounter Additional Health Concerns Assessment Noted Time PHQ-9 Depression Total Score: 4 12/09/19 24 10:18 AM EDT documented as of this encounter Care Teams Display Fabricator Relationship Specialty Start Date End Date Farhana Horn DO [address] [place] [address] PCP - General Family Medicine 09/09/18 documented as of this encounter
--- OUTSIDE RECORDS SUMMARY | 2024-11-20 09:21 | XMS_ITS | Encounter Summary ---
Author Organization [employer] [facility] Address [address] [place] [address] [address] [address] Care Team Providers Care Contract Clerk Name Role Phone Farhana Horn DO Primary Care Provider [phone] Encounter Details Date Type Department Care Team (Late st Contact Info) Description 09/12/2022 Orders Only [facility] MEDICINE [address] [place] [address] Farhana Horn DO [address] [place] [address] Social History Tobacco Use Types Packs/Day Years [...] Description 01/29/2025 10:15 AM EDT Office Visit [facility] [address] [place] [address] Farhana Horn DO [address] [place] [address] documented as of this encounter Visit Diagnoses Not on filedocumented in this encounter Care Teams Contract Clerk Relationship Specialty Start Date End Date Farhana Horn DO [address] [place] [address] PCP - General Family Medicine 09/09/18 documented as of this encounter
--- OUTSIDE RECORDS SUMMARY | 2024-11-20 09:21 | XMS_ITS | Encounter Summary ---
Author Organization [employer] Address [address] [place] [address] 7t [place] [address] Care Team Providers Care Resident Care Assistant Name Role Phone Farhana Horn Primary Care Provider [phone] Encounter Details Date Type Department Care Team [...] Description 01/29/2025 10:15 AM EDT Office Visit [facility] MEDICINE [address] [place] [address] Farhana Horn DO [address] [place] [address] documented as of this encounter Visit Diagnoses Not on filedocumented in this encounter Additional Health Concerns Assessment Noted Time PHQ-9 Depression Total Score: 4 12/09/19 24 10:18 AM EDT documented as of this encounter Care Teams Resident Care Assistant Relationship Specialty Start Date End Date Farhana Horn DO [address] [place] [address] PCP - General Family Medicine 09/09/18 documented as of this encounter
--- OUTSIDE RECORDS SUMMARY | 2024-11-20 09:21 | XMS_ITS | Encounter Summary ---
Author Organization [employer] Address [address] [place] [address] 7t [place] [address] Care Team Providers Care Dry Kiln Operator Helper Name Role Phone LizFarhana key Primary Care Provider [phone] Encounter Details Date Type Department Care Team (Late st Contact Info) Description 11/13/2024 Orders Only GENERIC EXTERNAL DATA [...] 10:15 AM EDT Office Visit [facility] MED[facility]INE [address] [place] [address] Farhana Horn DO [address] [place] [address] documented as of this encounter Procedures Procedure Name Priority Date/Time Associated Diagnosis Comments GLUCOSE, WHOLE BLOOD Routine 11/13/2024 9:04 AM EST documented in this encounter Results * (ABNORMAL) Glucose, Whole Blood (11/13/2024 9:04 AM EST) Glucose, Whole Blood 165(H) 60 - 115 mg/dL [facility] Comment:METER #: [id number] Testing performed in the Endocrinology Department [address], [address], [facility]. 11/13/2024 9:04 AM EST 11/13/2024 9:12 AM EST us Generic External Data Provider LAB BLOOD ORDERAB LES Final Result [facility] [address] [place] [address] [phone] documented in this encounter Visit Diagnoses Not on filedocumented in this encounter Additional Health Concerns Assessment Noted Time PHQ-9 Depression Total Score: 4 12/09/19 24 10:18 AM EDT documented as of this encounter Care Teams Dry Kiln Operator Helper Relationship Specialty Start Date End Date Farhana Horn DO [address] [place] [address] PCP - General Family Medicine 09/09/18 documented as of this encounter
== END 2024-11-20 09:45 | disposition home or self-care (01) ==
LOC: HO.HGI 08:57
PROVIDERS: PCP Family Medicine; Visit Provider Nurse Practitioner Family
DX: K21.9 Gastro-esophageal reflux disease without esophagitis (principal); K58.1 Irritable bowel syndrome with constipation; K57.90 Diverticulosis of intestine, part unspecified, without perforation or abscess without bleeding; K59.04 Chronic idiopathic constipation; R13.10 Dysphagia, unspecified; R10.13 Epigastric pain
CPT/HCPCS: 99214

== ENCOUNTER → 2024-11-20 08:56 | Outpatient (BNVA) | payer MEDICAID, SELFPAY | PROVIDERS: PCP Family Medicine; Visit Provider Nurse Practitioner Family | DX: K21.9 Gastro-esophageal reflux disease without esophagitis (principal); K58.1 Irritable bowel syndrome with constipation; K57.90 Diverticulosis of intestine, part unspecified, without perforation or abscess without bleeding; K59.04 Chronic idiopathic constipation; R13.10 Dysphagia, unspecified; R10.13 Epigastric pain | CPT/HCPCS: 99212 ==

== ENCOUNTER 2024-11-25 09:59 | Outpatient (AMB) | payer MEDICAID, SELFPAY ==
--- NOTE | 2024-11-25 10:45 | A.OFFVIS_ITS ---
VS Expanded 11/25/24 13:20 Height 5 ft 1 in Weight 157 lb 2.1 oz BMI 29.7 Intake Visit Reasons: Type 2 diabetes mellitus without complications Allergies Penicillins [PENICILLINS] Allergy (Severe, Verified 11/20/24 08:58) RASH dulaglutide [From Trulicity] Adverse Reaction (Mild, Verified 11/20/24 08:58) Abdominal Pain Nutrition Presentation Details: Pt presents for MNT for t2dm, not currently on meds Typical meal intake B: coffee with crackers or sandwich (ham/egg L 3 pm: rice/chicken or spaghetti D 5 pm cheerios/milk food frequency fruits: 0-1/d ve-2 x/wk starches > 15/d dairy : 1-2/d fish 0-1/wk physical activity :ADL etoh/smoking --- BS Monitoring Most Recent Diabetes Results: Creatinine 0.89 mg/dL (0.5-1.4) 11/04/24 Blood Urea Nitrogen 14 mg/dL (9-16) 11/04/24 Sodium 141 mmol/L (135-145) 11/04/24 Potassium 3.6 mmol/L (3.3-5.1) 11/04/24 Chloride 107 mmol/L (96-108) 11/04/24 Carbon Dioxide 28 mmol/L (22-29) 11/04/24 Calcium 8.7 mg/dL (8.4-10.2) 11/04/24 AST 76 U/L (5-31) H 11/04/24 ALT 85 U/L (0-31) H 11/04/24 Total Protein 7.1 g/dL (6.5-8.0) 11/04/24 Albumin 3.7 g/dL (3.5-5.0) 11/04/24 CXH-Hhvlryn-Fb.Jeor Equation Height: 5 ft 1 in Weight: 157 lb Resting Metabolic Rate: 1243.28 Calculated Activity Level: Sedentary Calories Needed to Maintain Weight: 1491.94 Diagnosis Nutrition problem #1: food nutri know defi As related to (etiology) #1: diagnosis As evidenced by (sign/symptom) #1: knowledge deficit of diet [facility] Medical History Type 2 diabetes mellitus Diverticulosis Renal calculi Gastric varices Migraine headache Depression GERD (gastroesophageal reflux disease) Diabetes mellitus Adrenal nodule IBS (irritable bowel syndrome) HTN (hypertension) Hyperlipemia Surgical History History of surgery History of esophagogastroduodenoscopy (EGD) Hx of colonoscopy Hx of tubal ligation Hx of discectomy Family History Father Hx of type 1 diabetes mellitus History of epilepsy Mother Family history of high blood pressure Hx of cancer of uterus Social History Household Members Other:: daughter Housing: House Alcohol intake: never Patient Tobacco Use Status: Never used Tobacco Current occupational status: employed Current occupation: [employer]- right handed Sexual orientation: Straight/Heterosexual Gender identity: Female Female Reproductive History Menstrual Age of Menarche: 10 Assessment & Plan Assessment & Plan (1) Type 2 diabetes mellitus: Code(s): E11.9 - Type 2 diabetes mellitus without complications Category: Medical Plan: Wt: 71Kg (12/01 ) Est kcal needs as per MSJ: 1500 (40% carb, 30% protein/fat) Est fluid needs as per 25-30 ml/d: 2100 Est prot per day as per 1 g/kg bw: 70 Recommend fiber intake : 8-10 g per day and gradually increase to 25-28 g per day for women and 35-38 g for men or as tolerated Recommend sodium intake per day : g less than 2000 mg Educated patient on: ( R = reviewed V = verbalizes understanding N/R = needs review N/A = not applicable * Food sources of carbohydrate, adequate serving sizes and its role in various health conditions: R * Differences between complex carbohydrates a simple carbohydrates, role of fiber in diet: R V N/R * Lean protein sources of foods: R V NR * Differences between types of fats and role in diet (mono on saturated fat fatty acids, saturated fatty acids, trans fats): R * Food sources of sodium in salt and healthy modifications for heart health in kidney health: R V R/V * Vitamins and minerals: R V N/R * Healthy plate method concept: R V N/R * Physical activity: Benefits a precaution: R V N/R * Hypoglycemia protocol (rule of 15): R V N/R * Dietary prevention of Hyperglycemia: R * Hydration : R Patient Instructions: Continue having 3 meals /day watching total carb intake : 45 -60 g at meal time Try soups with eggs or chcken or tuna with potatoes or sweet potatoes Try diluting juices with water to reduce amount of sugar Coding Level of Care Code Nutr Indiv Intake (36461) Diagnoses Type 2 diabetes mellitus E11.9 Time Spent (min) 30
--- OUTSIDE RECORDS SUMMARY | 2024-11-25 11:27 | XMS_ITS | Encounter Summary ---
Author Organization [employer] Address [address] [place] [address] 7t [place] [address] Care Team Providers Care Tour Bus Driver Name Role Phone Farhana Horn DO Primary Care Provider + [phone] Reason for Visit * Reason Onset Date Comments Nurse Triage 10/29/2024 Encounter Details Date Type Department Care Team ([facility] st Contact Info) Description 10/29/2024 Telephone [facility] MEDICINE [address] [place] [address] Farhana Horn DO [address] [place] [address] Nurse Triage Social History Tobacco Use Types [...] 10:17 AM EST Sent to team for [facility] status check PRN. * Telephone Encounter - Chanel Colindres RN - 10/29/2024 10:11 AM EST No fire sprinkler apparatus inspector needed as this mortgage underwriter speaks Slovak. Call returned to Tri Bowens to triage [...] hours. Pt advised of disposition, agrees to [facility] now for exam. Protocol Used: Vomiting [...] Office Visit [facility] MEDICINE [address] [place] [address] Farhana Horn DO [address] [place] [address] documented as of this encounter Visit Diagnoses Not on filedocumented in this encounter Additional Health Concerns Assessment Noted Time PHQ-9 Depression Total Score: 4 12/09/19 24 10:18 AM EDT documented as of this encounter Care Teams Tour Bus Driver Relationship Specialty Start Date End Date Farhana Horn DO [address] [place] [address] PCP - General Family Medicine 09/09/18 documented as of this encounter
--- OUTSIDE RECORDS SUMMARY | 2024-11-25 11:27 | XMS_ITS | Encounter Summary ---
Author Organization [employer] Address [address] [facility] 7t [place] [address] Care Team Providers Care Solid Waste Technician Name Role Phone LizFarhana key Primary Care Provider + [phone] Encounter Details Date Type Department Care Team (Late st Contact Info) Description 11/04/2024 Orders Only [facility] External Provider, [facility] Social History Tobacco Use Types Packs/Day Years [...] 10:15 AM EDT Office Visit [facility] MEDICINE [address] [place], [place] [phone] Farhana Horn DO [address] [place], [place] [phone] documented as of this encounter Procedures Procedure [...] PM EST) Influenza A PCR POSITIVE(A) Negative [facility] Influenza B PCR NEGATIVE Negative [facility] Resp Syncy Virus RNA Qual PCR NEGATIVE Negative [facility] SARS COV2 PCR NEGATIVE Negative [facility] Comment:All test results mus t [...] use by authorized laboratories.Testing performed on the [employer] GeneXpert utilizingreal-time RT-PCR.All SARS CoV2 and positive influenza A/B results arereported to [facility]. 11/04/2024 2:59 PM EST 11/04/2024 3:03 PM EST us Generic External Data Provider LAB MICROBIOLOGY - GENERAL ORDERABLES Final Result [facility] [address] [place] [address] [phone] * CTA Chest PE Protocal (11/04/2024 1:16 PM EST) Anatomical Region Laterality Modality Body, Chest Computed Tomogra phy 11/04/2024 1:16 PM EST Narrative 11/04/2024 1:38 PM EST ? [facility] ?[address] ?[place] [address] ? CT Scan Report ? Signed ? Patient: Tri Bowens ?MR#: [id number] ?? 63 ? : 1970 ?Acct:[id number] ? Age/Sex: 54 / F ?ADM Date: 11/04/24 ? Loc: HO.ED ? Attending Dr: ? Ordering Physician: Brenden Denton MD ?? Date of Service: 11/04/24 ?? Procedure(s): CT angio chest PE protocol ?? Accession Number(s): [id number] ? cc: Brenden Denton MD; Farhana Horn DO ? Report Number: ?? [id number]: Total DLP = ??278.00 mGy-cm ?? EXAMINATION: [...] DD/ 1316 ? TD/TT: 11/04/24 1316 ? Consulting Marine Engineer: ? Procedure Note Wai Bose - 11/04/[address] [address] [address] Scan Report Signed Patient: Tri Bowens#: [id number] 63 : 1970Acct:[id number] Age/Sex: 54 / FADM Date: 11/04/24 Loc: HO.ED Attending Dr: Ordering Physician: Brenden Denton MD Date of Service: 11/04/24 Procedure(s): CT angio chest PE protocol Accession Number(s): [id number] cc: Brenden Denton MD; Farhana Horn DO Report Number: [id number]: Total DLP = 278.00 mGy-cm EXAMINATION: CT [...] by: Yariel Brooks MD 11/04/2024 01:34 PM [facility] Dictated By: Yariel Buchanan MD Signed By: <Electronically signed by Yariel Garcia MDin OV> 11/04/24 1334 DD/ 1316 TD/TT: 11/04/24 1316 Consulting Marine Engineer: [facility] External Provider IMG CT PROCEDURES Final Result * CT Abdomen Pelvis w/ Contrast (11/04/2024 11:43 AM EST) Anatomical Region Laterality Modality Body, Pelvis, Abdomen Computed T omography 11/04/2024 11:4 3 AM EST Narrative 11/04/2024 1:32 PM EST ? [facility] ?[address] ?[place] [address] ? CT Scan Report ? Signed ? Patient: Kwan,Tri ?MR#: [id number] ?? 63 ? : 1970 ?Acct:[id number] ? Age/Sex: 54 / F ?ADM Date: 11/04/24 ? Loc: HO.ED ? Attending Dr: ? Ordering Physician: Brenden Denton MD ?? Date of Service: 11/04/24 ?? Procedure(s): CT abdomen pelvis w IV con ?? Accession Number(s): [id number] ? cc: Brenden Denton MD; Farhana Horn DO ? Report Number: ?? [id number]: Total DLP = ??462.00 mGy-cm ?? EXAMINATION: [...] DD/ 1143 ? TD/TT: 11/04/24 1316 ? Consulting Marine Engineer: ? Procedure Note Doncitlalyter, Image - 11/04/[address] [place] [address] [address] Scan Report Signed Patient: Wang Bowens#: [id number] 63 : 1970Acct:[id number] Age/Sex: 54 / FADM Date: 11/04/24 Loc: HO.ED Attending Dr: Ordering Physician: Brenden Denton MD Date of Service: 11/04/24 Procedure(s): CT abdomen pelvis w IV con Accession Number(s): [id number] cc: Brenden Denton MD; Farhana Horn DO Report Number: [id number]: Total DLP = 462.00 mGy-cm EXAMINATION: CT [...] by: Yariel Brooks MD 11/04/2024 01:28 PM [facility] Dictated By: Yariel Buchanan MD Signed By: <Electronically signed by Yariel Garcia MDin OV> 11/04/24 1328 DD/ 1143 TD/TT: 11/04/24 1316 Consulting Marine Engineer: [facility] External Provider IMG CT PROCEDURES Final Result documented in this encounter Visit Diagnoses Not on filedocumented in this encounter Additional Health Concerns Assessment Noted Time PHQ-9 Depression Total Score: 4 12/09/19 24 10:18 AM EDT documented as of this encounter Care Teams Solid Waste Technician Relationship Specialty Start Date End Date Farhana Horn DO [address] [place] [address] PCP - General Family Medicine 09/09/18 documented as of this encounter
--- OUTSIDE RECORDS SUMMARY | 2024-11-25 11:27 | XMS_ITS | Encounter Summary ---
Author Organization [employer] Address [address] [facility] 7t [place] [address] Care Team Providers Care Dry Box Operator Name Role Phone Farhana Horn DO Primary Care Provider + [phone] Reason for Visit * Reason Comments Care Coordination Outreach Encounter Details Date Type Department Care Team (Latest Contact Info) Description 11/05/2024 Patient Outreach [facility] MED & PEDS [address] [place], [place] [phone] Farhana Horn DO [address] [facility] [place] [address] Care Coordination (Outreach) Social History Tobacco Use [...] outbound call to patient introducing herself from [facility], in regards to offering services. Patient's name and was confirmed. Patient agrees to participate in program. Appt. for initial assessment scheduled for 11/09/24 @ 10:00AM. CHW reinforced direct contact information or for any additional questions or concerns and extended clinic hours on Mondays and Wednesdays, and Walk-In Urgent Care Located in [facility] of [facility]. Patient provided with after-hours line for [facility], , which offer night time triage service and option to transfer to cotton bag clipper provider if needed. Patient verbalizes understanding, and able to repeat back to job specification writer. documented in this encounter Plan of Treatment Upcoming Encounters Date Type Department Care Team (Late st Contact Info) Description 01/29/2025 10:15 AM EDT Office Visit [facility] MEDICINE [address] [place] [address] Farhana Horn, [address] [place] [address] documented as of this encounter Visit Diagnoses Not on filedocumented in this encounter Additional Health Concerns Assessment Noted Time PHQ-9 Depression Total Score: 4 12/09/19 24 10:18 AM EDT documented as of this encounter Care Teams Dry Box Operator Relationship Specialty Start Date End Date Farhana Horn DO [address] [place] [address] PCP - General Family Medicine 09/09/18 documented as of this encounter
--- OUTSIDE RECORDS SUMMARY | 2024-11-25 11:27 | XMS_ITS | Encounter Summary ---
Author Organization [employer] Address [address] [place] [address] 7t [place] [address] Care Team Providers Care Commodity Merchant Name Role Phone LizFarhana key Primary Care Provider [phone] Encounter Details Date Type Department Care Team [...] 10:15 AM EDT Office Visit [facility] MEDICINE [address] [place], [place] [phone] Farhana Horn, [address] [place], [place] [phone] documented as of this encounter Procedures Procedure [...] EST Narrative 10/29/2024 11:54 PM EST ? [facility] ?[address] ?[place] [address] ? CT Scan Report ? Signed ? Patient: Kwan,Tri ?MR#: [id number] ?? 63 ? : 1970 ?Acct:[id number] ? Age/Sex: 54 / F ?ADM Date: 10/29/24 ? Loc: HO.ED ? Attending Dr: ? Ordering Physician: Matt Nelson ?? Date of Service: 10/29/24 ?? Procedure(s): CT abdomen pelvis w IV con ?? Accession Number(s): [id number] ? cc: Farhana Horn DO; Matt Nelson ? Report Number: ?? [id number]: Total DLP = ??539.00 mGy-cm ? CLINICAL [...] phenomenon at transitional ?? lumbosacral junction with yxtjppko-st-rkwkjg bilateral facet arthropathy ?? and mild spinal [...] DD/ 52 ? TD/TT: 10/29/24 2353 ? Farm Management Adviser: ? 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 htuqhlej-bh-zsuahe bilateral facet arthropathy and mild spinal stenosis [...] in OV> 10/29/242352 DD/ 52 TD/TT: 10/29/242352 Farm Management Adviser: [facility] External Provider IMG CT PROCEDURES Final Result * (ABNORMAL) Urinalysis, Complete, with Reflex to Culture (10/29/2024 11:01 PM EST) Color Urine Dark Yellow [facility] Appearance Urine Cloudy [facility] PH 5.5 5.0 - 9.0 [facility] Glucose Urine UA Negative Negative mg/dL [facility] Urine Blood Negative Negative [facility] Specific [place] - Urine >=1.030(H) 1.005 - 1.025 [facility] Urine Protein 30 (1+)(A) Neg-Trace mg/dL [facility] Urine Ketones 15 Negative mg/dL [facility] Nitrite Urine Negative Negative [facility] Leukocyte Esterase Urine Trace(A) Negative [facility] RBC Urine 0-2 0 - 2 /HPF [facility] Urine WBC 0-5 0 - 5 /HPF [facility] Urine Squamous Epithelial Cell 3-5 0 - 2 /HPF [facility] Urine Bacteria 1+ None Seen [facility] Hyaline Casts, Urine 3-5 0 - 2 /LPF [facility] 10/29/2024 11:0 1 PM EST 10/29/2024 11:12 PM EST Narrative [facility] - 10/29/2024 11:24 PM EST Urine, Clean Catch Generic External Data Provider LAB URINE ORDERAB LES Final Result Performing Organization Address [facility] Co de Phone Number [facility] [address] [place] [phone] SARS-CoV-2 RNA, Influenza A/B, and RSV RNA, Ql NAAT (10/29/2024 12:06 PM EST) Influenza A PCR NEGATIVE Negative [facility] Influenza B PCR NEGATIVE Negative [facility] Resp Syncy Virus RNA Qual PCR NEGATIVE Negative [facility] SARS COV2 PCR NEGATIVE Negative [facility] Comment:All test results mus t [...] use by authorized laboratories.Testing performed on the [employer] GeneXpert utilizingreal-time RT-PCR.All SARS CoV2 and positive influenza A/B results arereported to [facility]. 10/29/2024 12:0 6 PM EST 10/29/2024 12:09 PM EST Generic External Data Provider LAB MICROBIOLOGY - GENERAL ORDERABLES Final Result Performing Organization Address [facility]/ZIP Co de Phone Number [facility] [address] [place] [phone] * Magnesium (10/29/2024 12:06 PM EST) Magnesium 1.9 1.6 - 2.6 mg/dL [facility] 10/29/2024 12:0 6 PM EST 10/29/2024 12:09 PM EST us Generic External Data Provider LAB BLOOD ORDERAB LES Final Result [facility] [address] [place] [phone] * (ABNORMAL) Comprehensive Metabolic Panel (10/29/2024 [...] Kidney Disea se: Estimated GFR < 60 mL/min/1.55l1Odpokw Kidney Disease: Estimated GFR < 15 mL/min/1.73m2 [...] Final Result Performing Organization Address [facility] Co de Phone Number [facility] [address] [place] [phone] * (ABNORMAL) Prothrombin Time-INR (10/29/2024 12:06 [...] Final Result Performing Organization Address [facility] Co de Phone Number [facility] [address] [place] [phone] * (ABNORMAL) CBC auto differential (10/29/2024 [...] Final Result [facility] [address] [place] [phone] documented in this encounter Visit Diagnoses Not on filedocumented in this encounter Additional Health Concerns Assessment Noted Time PHQ-9 Depression Total Score: 4 12/09/19 24 10:18 AM EDT documented as of this encounter Care Teams Commodity Merchant Relationship Specialty Start Date End Date Farhana Horn DO [address] [place] [address] PCP - General Family Medicine 09/09/18 documented as of this encounter
--- OUTSIDE RECORDS SUMMARY | 2024-11-25 11:27 | XMS_ITS | Encounter Summary ---
Author Organization [employer] Address [address] [facility] 7t [place] [address] Care Team Providers Care Mechanical Applications Engineer Name Role Phone Farhana Horn DO Primary Care Provider + [phone] Reason for Visit * Reason Comments Care Coordination Outreach Encounter Details Date Type Department Care Team (Latest Contact Info) Description 11/23/2024 Patient Outreach [facility] MED [facility]EDS [address] [place], [place] [phone] Farhana Horn DO [address] [facility] [address] Care Coordination (Outreach) Social History Tobacco Use [...] encounter Progress Notes * Tita Saunders - 11/23/2024 10:09 AM EDT CHW Tita Saunders placed outbound call to patient to follow up on SDOH needs. Patient's name, and address confirmed. Patient states is doing well. No further questions or concerns. CHW reinforced direct contact information or CM for any additional questions or concerns and extended clinic hours on Mondays and Wednesdays, and Walk-In Urgent Care Located in [facility]. Patient provided with after-hours line for [facility], , which offer night time triage service and option to transfer to graphic production artist provider if needed. Patient verbalizes understanding, and able to repeat back to speech writer. A follow up call willbe placed within 10 days, patient agrees with plan. documented in this encounter Plan of Treatment Upcoming Encounters Date Type Department Care Team (Late st Contact Info) Description 01/29/2025 10:15 AM EDT Office Visit [facility] MEDICINE [address] [place] [address] Farhana Horn, [address] [place] [address] documented as of this encounter Visit Diagnoses Not on filedocumented in this encounter Additional Health Concerns Assessment Noted Time PHQ-9 Depression Total Score: 4 12/09/19 24 10:18 AM EDT documented as of this encounter Care Teams Mechanical Applications Engineer Relationship Specialty Start Date End Date Farhana Horn DO [address] [place] [address] PCP - General Family Medicine 09/09/18 documented as of this encounter
--- OUTSIDE RECORDS SUMMARY | 2024-11-25 11:27 | XMS_ITS | Encounter Summary ---
Author Organization [employer] Address [address] [place] [address] 7t [place] [address] Care Team Providers Care Trade Show Coordinator Name Role Phone Farhana Horn Primary Care Provider [phone] Encounter Details Date Type Department Care Team [...] 10:15 AM EDT Office Visit [facility] MEDICINE [address] [place] [address] Farhana Horn DO [address] [place] [address] documented as of this encounter Visit Diagnoses Not on filedocumented in this encounter Additional Health Concerns Assessment Noted Time PHQ-9 Depression Total Score: 4 12/09/19 24 10:18 AM EDT documented as of this encounter Care Teams Trade Show Coordinator Relationship Specialty Start Date End Date Farhana Horn DO [address] [place] [address] PCP - General Family Medicine 09/09/18 documented as of this encounter
--- OUTSIDE RECORDS SUMMARY | 2024-11-25 11:27 | XMS_ITS | Encounter Summary ---
Author Organization [employer] Address [address] [facility] 7t [place] [address] Care Team Providers Care Pantograph Watcher Name Role Phone Farhana Horn Primary Care Provider + [phone] Reason for Visit * Reason Comments Diabetic Eye Exam Encounter Details Date Type Department Care Team (Late st Contact Info) Description 10/22/2024 2:00 PM EST Office Visit [facility] OPTOMETRY [address] [place] [address] Steven, Danette, OD [address] [place] [address] Diabetes type 2, no ocular involvement (CMS/HCC) [...] needed for MM SPASM/PAIN 60 tablet 5 oewxuimvwl-oscbnktqybwpg-xqffwlwh 50-325-40 MG tablet TAKE ONE TABLET BY [...] Left Vitreous Vitreous syneresis Vitreous syneresis Disc [place] and Distinct, no NVD [place] and Distinct, no NVD C/D Ratio Vertical 0.10 0.10 C/D Ratio Horizontal 0.10 0.10 Macula Flat and Intact, no CSME Vitelliform lesion/large drusen superotemporal to fovea, no CME/SRF Vessels Normal Normal Periphery No holes/breaks/tears 360 degrees, no NVE No holes/breaks/tears 360 degrees, no NVE Refraction Wearing Rx Sphere Cylinder [place] Add Right -2.75 -1.75 150 +2.00 Left -1.50 -1.00 030 +2.00 Manifest Refraction Sphere Cylinder [place] Dist [place] Add Right -2.75 -1.75 150 20/20 +2.25 Left -1.50 -1.00 030 20/20 +2.25 Near VA Both: 20/20 Final Rx Sphere Cylinder [place] Dist [place] Add Right -2.75 -1.75 150 20/20 +2.25 Left -1.50 -1.00 030 20/20 +2.25 Expiration Date: 10/22/2026 Assessment/plan: Diagnoses and all orders for this visit: Diabetes type 2, no ocular involvement ([facility]) There is no diabetic retinopathy or macular [...] through the shared patient problem list in [facility].Will monitor in 1 year. Headache, unspecified headache [...] with the content and plan as written. Human Resources Department Supervisor Source: ___ None _x__ Bilingual Staff ___ Qualified Staff Field Artillery Basic ___ Telephone Human Resources Department Supervisor; ID# ___ Human Resources Department Supervisor brought by patient (family member, friend, COVERED BUCKLE ASSEMBLER, etc) ___ In person paraprofessional interpreter ___ Ipad Human Resources Department Supervisor; ID#: Language Spoken During Exam: __Spanish documented in this encounter Plan of Treatment Upcoming Encounters Date Type Department Care Team (Late st Contact Info) Description 01/29/2025 10:15 AM EDT Office Visit [facility] MEDICINE [address] [place] [address] Farhana Horn DO [address] [place] [address] documented as of this encounter Procedures Procedure [...] Diagnosis Diabetes type 2, no ocular involvement ([facility])- Primary Headache, unspecified headache type 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
--- OUTSIDE RECORDS SUMMARY | 2024-11-25 11:27 | XMS_ITS | Clinical Summary ---
Author Organization [employer] Address [address] [place] [address] 7[address] [place] [address] Care Team Providers Care Brick Catcher Name Role Phone Farhana Horn Primary Care Provider [phone] Allergies Active Allergy Reactions Criticality Noted Date [...] 2 diabetes mellitus without complication, unspecified whether assisted insulin use (CMS/HCC) Take 1 tablet by mouth in the evening with meals 90 tablet 1 024 Active Calcium Carb-Cholecalcifer ol 600-10 MG-MCG tabletIndications: Osteopenia, unspecified location Take 1 tablet by mouth 2 times daily. 60 tablet 11 024 Active polycarbophil (FiberCon) 625 MG tablet Take 1 tablet (625 mg) by mouth 2 times daily. 180 tablet 1 024 12/08 Active Saccharomyces boulardii (probiotic) 250 MG capsule Take 1 capsule (250 mg) by mouth in the morning. 90 capsule 1 024 12/08 Active magnesium oxide (Mag-Ox) 400 [...] VIA ORAL CADA 8 HORAS 025 Active cholecalciferol (Vitamin D-3) 50 MCG (1999 UT) capsule Take 1 capsule (50 mcg) by mouth Once per day. 30 capsule 11 025 11/24 Active cholecalciferol (Vitamin D-3) 50 MCG (1999 UT) capsule Take 1 capsule (50 mcg) by mouth in the morning. 30 capsule 11 024 11/23 Discontinued( Reorder (will not trigger notification to Pharmacy)) Active Problems Problem Noted Date Diagnosed Date Adjustment disorder with depressed mood 11/25/19 25 Healthcare maintenance 12/09/2023 Assessment & Plan (12/09/2023 2:24 PM EDT): -s/p flu vaccine JUL 2023 -s/p COVID vaccine JUL 2023 -s/p Tdap FEB 2021 -PCV20 today -s/p Shingrix Nov 2021 -Hep B immune -colonoscopy with diverticulosis January 2019, repeat 5 years per GI -mammo BIRADS 10 SEP 2023 -pap nml/HPV negative JUL 2020 with NUT PACKER -DEXA with osteopenia JUL 2023 -STI/HIV screen [...] nightly -s/p optho eval Apr 2023 at [facility] -foot exam next visit* Allergic rhinitis [...] -f/u with neurology as scheduled -advised contact [facility] if no improvement Irritable bowel syndrome [...] organization. Date Type Department Care Team Description 11/23/2024 Patient Outreach [facility] [address] [place] [address] Farhana Horn DO Care Coordination (Outreach) 11/23/2024 Refill [facility] [address] [place] [address] Farhana Horn DO 11/20/2024 Population Health Risk Score Community [facility] (C3) Department [address] [place] [phone] Provider, Population Health Generic 11/13/2024 Orders Only GENERIC EXTERNAL DATA DEPARTMENT Provider, Generic External Data 11/09/2024 Telephone [facility] [address] [place] [address] Farhana Horn DO Care Coordination ([facility] initial assessment/ enrollment) 11/05/2024 Patient Outreach [facility] [address] [place] [address] Farhana Horn DO Care Coordination (Outreach) 11/04/2024 10:00 AM EST Office Visit [facility] [address] [place] [phone] Farhana Horn DO Generalized abdominal pain (Primary Dx); Cough with hemoptysis; Generalized weakness; Type 2 diabetes mellitus without complication, without long-term current use of insulin ([facility]) 11/04/2024 Orders Only [facility] External Provider, [facility] 11/04/2024 Travel 10/29/2024 Orders Only GENERIC EXTERNAL DATA DEPARTMENT Provider, Generic External Data 10/29/2024 Telephone [facility] [address] [place] [address] Farhana Horn DO Nurse Triage 10/29/2024 Telephone [facility] [address] [place] [address] Farhana Horn DO Appointment Request 10/27/2024 Orders Only GENERIC EXTERNAL DATA DEPARTMENT Provider, Generic External Data 10/23/2024 Refill [facility] [address] [place] [address] Farhana Horn DO Seasonal allergic rhinitis, unspecified trigger 10/22/2024 2:00 PM EST Office Visit [facility] OPTOMETRY [address] [place] [address] Steven, Danette, OD Diabetes type 2, no ocular involvement (CMS/HCC) (Primary Dx); Headache, unspecified headache type; Vitelliform lesion of macula; Combined forms of age-related cataract of both eyes; Meibomian gland disease, unspecified laterality; Presbyopia 10/22/2024 Travel 10/21/2024 Travel 10/15/2024 Telephone [facility] [address] [place] [address] Sudha Doss [place] Recall Letter (Recall Letter sent 10/15/24.) 09/21/2024 Refill [facility] [address] [place] [address] Farhana Horn DO 09/08/2024 Refill [facility] [address] [place] [address] Farhana Horn DO 09/04/2024 Orders Only GENERIC [...] Answer Date Recorded Patient Health Questionnaire-9 Score 13 11/25/2024 Patient Health Questionnaire-9 Score 13 11/25/2024 Last PHQ-9: Questionnaire Data Not on file 0 11/25/2024 Housing Stability Answer Date Recorded What is [...] Date Recorded Patient Health Questionnaire-2 Score 6 11/25/2024 Internet Access Answer Date Recorded Internet Access [...] Description 01/29/2025 10:15 AM EDT Office Visit [facility] [address] [place] [address] Farhana Horn DO [address] [place] [address] Health Maintenance Due Date Last Done Comments [...] Panel 07/26/2024 07/26/2023, 06/11, 01/25/2021 Colposcopy 2024 Diabetes: Hemoglobin A1C 05/04/2025 025, 04/14/2024, 12/09/2023, Additional history exists Depression Monitoring (PHQ-9) 05/28/2025 11/25/2024, 11/25/2024 Mammogram 09/23/2025 09/23/2024, 10/2023, 09/07/2022, Additional history exists Alcohol/Substance Use Screening 11/04/2025 11/04/2024 SDOH Screening 11/05/2025 11/05/2024 Tobacco Screening 11/10/2025 11/10/2024 Depression Screening 11/25/2025 11/25/2024, 11/26/19 25 Eye Exam 10/22/2026 10/22/2024, 10/10, 10/22/2024, Additional [...] complication, without long-term current use of insulin ([facility]) POCT GLYCATED HEMOGLOBIN, TOTAL Routine 11/04/2024 10:14 AM EST Type 2 diabetes mellitus without complication, without long-term current use of insulin ([facility]) CT ABDOMEN PELVIS W CONTRAST Routine 10/29/2024 [...] Whole Blood 165(H) 60 - 115 mg/dL [facility] Comment:METER #: [id number] Testing performed in the Endocrinology Department [address] , [address], [employer]. 11/13/2024 9:04 AM EST 11/13/2024 9:12 AM EST Generic External Data Provider LAB BLOOD ORDERAB LES Final Result Performing Organization Address [facility] Co de Phone Number [facility] [address] [place] [phone] * (ABNORMAL) SARS-CoV-2 RNA, Influenza A/B, and RSV RNA, Ql NAAT (11/04/2024 2:59 PM EST) Only the most recent of2 resultswithin the time period is included. Influenza A PCR POSITIVE(A) Negative [facility] Influenza B PCR NEGATIVE Negative [facility] Resp Syncy Virus RNA Qual PCR NEGATIVE Negative [facility] SARS COV2 PCR NEGATIVE Negative [facility] Comment:All test results mus [...] use by authorized laboratories.Testing performed on the g4interactive GeneXpert utilizingreal-time RT-PCR.All SARS CoV2 and positive influenza A/B results arereported to [facility]. 11/04/2024 2:59 PM EST 11/04/2024 3:03 PM EST Generic External Data Provider LAB MICROBIOLOGY - GENERAL ORDERABLES Final Result Performing Organization Address [facility]/ZIP Co de Phone Number [facility] [address] [place] [phone] * CTA Chest PE Protocal (11/04/2024 1:16 PM EST) Anatomical Region Laterality Modality Body, Chest Computed Tomogra phy 11/04/2024 1:16 PM EST Narrative 11/04/2024 1:38 PM EST ? [facility] ?[address] ?[place] [address] ? CT Scan Report ? Signed ? Patient: Kwan,Tri ?MR#: [id number] ?? 63 ? : 1970 ?Acct:[id number] ? Age/Sex: 54 / F ?ADM Date: 11/04/24 ? Loc: HO.ED ? Attending Dr: ? Ordering Physician: Brenden Denton MD ?? Date of Service: 11/04/24 ?? Procedure(s): CT angio chest PE protocol ?? Accession Number(s): [id number] ? cc: Brenden Denton MD; Farhana Horn DO ? Report Number: ?? [id number]: Total DLP = ??278.00 mGy-cm ?? EXAMINATION: [...] in OV> ? 11/04/24 1334 ? DD/ 15 ? TD/TT: 11/04/241315 ? Software Engineer Mobile: ? Procedure Note Wai Bose - 11/04/[address] [place] [address] [address] Scan Report Signed Patient: Tri BowensMR#: [id number] 63 : 1970Acct:[id number] Age/Sex: 54 / FADM Date: 11/04/24 Loc: .ED Attending Dr: Ordering Physician: Brenden Denton MD Date of Service: 11/04/24 Procedure(s): CT angio chest PE protocol Accession Number(s): [id number] cc: Brenden Denton MD; Farhana Horn DO Report Number: [id number]: Total DLP = 278.00 mGy-cm EXAMINATION: CT [...] 11/04/24 1334 DD/ 1316 TD/TT: 11/04/24 1316 Software Engineer Mobile: [facility] External Provider IMG CT PROCEDURES Final Result * CT Abdomen Pelvis w/ Contrast (11/04/2024 11:43 AM EST) Only the most recent of2 resultswithin the time period is included. Anatomical Region Laterality Modality Body, Pelvis, Abdomen Computed T omography 11/04/2024 11:4 3 AM EST Narrative 11/04/2024 1:32 PM EST ? [facility] ?[address] ?[place] [address] ? CT Scan Report ? Signed ? Patient: Kwan,Tri ?MR#: [id number] ?? 63 ? : 1970 ?Acct:[id number] ? Age/Sex: 54 / F ?ADM Date: 02/26/25 ? Loc: HO.ED ? Attending Dr: ? Ordering Physician: Brenden Denton MD ?? Date of Service: 11/04/24 ?? Procedure(s): CT abdomen pelvis w IV con ?? Accession Number(s): [id number] ? cc: Brenden Denton MD; Farhana Horn DO ? Report Number: ?? [id number]: Total DLP = ??462.00 mGy-cm ?? EXAMINATION: [...] DD/ 1143 ? TD/TT: 11/04/24 1316 ? Software Engineer Mobile: ? Procedure Note Juice, Wai - 11/04/[address] [address] [address] Scan Report Signed Patient: Wang Bowens#: [id number] 63 : 1970Acct:[id number] Age/Sex: 54 / FADM Date: 11/04/24 Loc: HO.ED Attending Dr: Ordering Physician: Brenden Denton MD Date of Service: 11/04/24 Procedure(s): CT abdomen pelvis w IV con Accession Number(s): [id number] cc: Brenden Denton MD; Farhana Horn DO Report Number: [id number]: Total DLP = 462.00 mGy-cm EXAMINATION: CT [...] 11/04/24 1328 DD/ 1143 TD/TT: 11/04/24 1316 Software Engineer Mobile: [facility] External Provider IMG CT [...] Media Lot # [id number] Lot# Expiration Date , Blood Capillary blood specimen / Unknown 11/04/2024 10:14 AM EST us Farhana Horn DO POINT OF CARE TEST ENTER/PAUL T ORDERABLES Final Result * (ABNORMAL) Urinalysis, Complete, with Reflex to Culture (10/29/2024 11:01 PM EST) Color Urine Dark Yellow [facility] Appearance Urine Cloudy [facility] PH 5.5 5.0 - 9.0 [facility] Glucose Urine UA Negative Negative mg/dL [facility] Urine Blood Negative Negative [facility] Specific [place] - Urine >=1.030(H) 1.005 - 1.025 [facility] Urine Protein 30 (1+)(A) Neg-Trace mg/dL [facility] Urine Ketones 15 Negative mg/dL [facility] Nitrite Urine Negative Negative [facility] Leukocyte Esterase Urine Trace(A) Negative [facility] RBC Urine 0-2 0 - 2 /HPF [facility] Urine WBC 0-5 0 - 5 /HPF [facility] Urine Squamous Epithelial Cell 3-5 0 - 2 /HPF [facility] Urine Bacteria 1+ None Seen [facility] Hyaline Casts, Urine 3-5 0 - 2 /LPF [facility] 10/29/2024 11:0 1 PM EST 10/29/2024 11:12 PM EST Narrative [facility] - 10/29/2024 11:24 PM EST Urine, Clean Catch us Generic External Data Provider LAB URINE ORDERAB LES Final Result [facility] [address] [place] [phone] * (ABNORMAL) CBC auto differential (10/29/2024 12:06 PM EST) White Blood Count 7.4 4.8 - 10.8 X10*3/uL [facility] Red Blood Count 4.83 4.20 - 5.50 X10*6/uL [facility] Hemoglobin 13.3 12.0 - 16.0 g/dl [facility] Hematocrit 40.4 37.0 - 47.0 % [facility] Mean Corpuscular Volume 83.6 80.0 - 98.0 fL [facility] Mean Corpuscular Hemoglobin 27.5 27.0 - 33.0 pg [facility] Mean Corpuscular HGB Conc 32.9 31.0 - 35.0 g/dl [facility] Red Cell Distribution Width 13.4 11.0 - 16.0 % [facility] Platelet Count 302 160 - 400 X10*3/uL [facility] Mean Platelet Volume 8.0(L) 9.4 - 12.3 fL [facility] Neutrophils Percent Auto 45.2 45 - 73 % [facility] Imm Gran Pct Auto 0.1 0.0 - 0.4 % [facility] Lymphocytes Percent Auto 40.7(H) 20 - 40 % [facility] Monocytes Percent Auto 11.2(H) 2 - 11 % [facility] Eosinophils Percent Auto 2.4 0 - 4 % [facility] Basophils Percent Auto 0.4 0 - 2 % [facility] NRBC Pct Auto 0.0 0.0 - 0.2 /100WBC [facility] Neutrophils Absolute Auto 3.3 2.0 - 8.3 x10*3/uL [facility] Imm Gran Abs Auto 0.01 0.00 - 0.03 X10*3/uL [facility] Lymphocytes Absolute Auto 3.0 1.2 - 4.9 X10*3/uL [facility] Monocytes Absolute Auto 0.8 0.1 - 1.2 X10*3/uL [facility] Eosinophils Absolute Auto 0.2 0.0 - 0.4 X10*3/uL [facility] Basophils Absolute Auto 0.0 0.0 - 0.2 X10*3/uL [facility] NRBC Abs Auto 0.000 0.0 - 0.012 X10*3/uL [facility] 10/29/2024 12:0 6 PM EST 10/29/2024 12:09 PM EST Generic External Data Provider LAB BLOOD ORDERAB LES Final Result Performing Organization Address [facility] Co de Phone Number [facility] [address] [place] [phone] * (ABNORMAL) Prothrombin Time-INR (10/29/2024 12:06 PM EST) Prothrombin Time 12.6(H) 10.9 - 12.4 SEC [facility] INTERNATIONAL NORM RATIO 1.1 0.9 - 1.1 [facility] Comment:INTERNATIONAL NORMAL IZED RATIO (INR) REFERENCE [...] ORDERAB LES Final Result Performing Organization Address [facility] Co de Phone Number [facility] [address] [place] [phone] * Magnesium (10/29/2024 12:06 PM EST) Magnesium 1.9 1.6 - 2.6 mg/dL [facility] 10/29/2024 12:0 6 PM EST 10/29/2024 12:09 PM EST Generic External Data Provider LAB BLOOD ORDERAB LES Final Result Performing Organization Address [facility]/ZIP Co de Phone Number [facility] [address] [place] [phone] * (ABNORMAL) Comprehensive Metabolic Panel (10/29/2024 12:06 PM EST) Sodium 140 135 - 145 mmol/L [facility] Potassium 3.7 3.3 - 5.1 mmol/L [facility] Chloride 112(H) 96 - 108 mmol/L [facility] Carbon Dioxide 21(L) 22 - 29 mmol/L [facility] Anion Gap 11(L) 12 - 20 [facility] Urea Nitrogen (BUN) 19(H) 9 - 16 mg/dL [facility] Creatinine, Serum 0.79 0.5 - 1.4 mg/dL [facility] Creatinine Clr Calc Pharmacy 68.7 [facility] Comment:Provided height and weight: 152.4 cm,68.6 kg.eGFR (calculated from the MDRD study equation) and eCrCl(calculated from the Cockcroft-Gault equation) are based ondifferent parameters and may not yield comparable results.If eCrCl result is absurd, please check patient'sheight/weight. Estimated Glomerular Filt Rate >60 [facility] Comment:Chronic Kidney Disea se: Estimated GFR < 60 mL/min/1.26w4Ykzkon Kidney Disease: Estimated GFR < 15 mL/min/1.73m2 Glucose 123(H) 60 - 115 mg/dL [facility] Calcium 9.3 8.4 - 10.2 mg/dL [facility] Bilirubin, Total 0.4 0.0 - 1.0 mg/dL [facility] Aspartate Amino Transferase 28 5 - 31 U/L [facility] Alanine Aminotransferase 41(H) 0 - 31 U/L [facility] Total Protein 8.2(H) 6.5 - 8.0 g/dL [facility] Albumin Level 4.2 3.5 - 5.0 g/dL [facility] Alkaline Phosphatase 140(H) 39 - 117 U/L [facility] 10/29/2024 12:0 6 PM EST 10/29/2024 12:09 PM EST Generic External Data Provider LAB BLOOD ORDERAB LES Final Result Performing Organization Address [facility] Co de Phone Number [facility] [address] [place] [phone] * (ABNORMAL) HPV DNA, Low/High Risk (10/27/2024 9:07 AM EST) HPV High Risk Positive(A) Negative [facility] HPV Genotype 16 Negative Negative [facility] HPV Genotype 18 Negative Negative [facility] Comment:HPV testing performe d at [facility] (CLIA#[id number]), [address] [place] [address].Testing for HPV was performed using the Milana [...] 9:07 AM EST 2024 6:20 AM EST Generic External Data Provider LAB BLOOD ORDERAB LES Final Result Performing Organization Address [facility]/ZIP Co de Phone Number [facility] [address] [place] [phone] * Pap Smear (10/27/2024 9:07 AM EST) 10/27/2024 9:07 AM EST 10/27/2024 2:15 PM EST Narrative [facility] - 11/02/2024 3:56 PM EST ----- ------- Name: Tri Bowens ? Age/Sex: 53/F ? : 1970 Unit#: [id number] ?? Attend Dr: Fabio Morin MD ?Re10/27/24 ?Status: DEP REF ? Location: HO.LNP ?Disch: ? ----- ------- SPEC : [id number] ? RECD: 10/27/24 ? STATUS: ??SOUT ? REQ NUM: [id number] ? ANITA: 10/27/24 ? SUBM DR: Fabio [...] Copies To: ?? Farhana Horn DO ?? [facility] ?? [address] ?? [place] [address] ?? [phone] ?? Fabio Morin MD ?? [facility] ?? [address] ?? [place] [address] ?? [phone] ----- ------- Signed (signature on file) CORI Ortez (ASCP) 11/02/24 7454 ? ----- ------- ? END OF REPORT ? us Generic External Data Provider LAB CYTOLOGY BROOKE RABLES Final Result [facility] [address] [facility] [place] [address] [phone] * OCT, Retina - OU - [...] EST Narrative 10/04/2024 9:14 AM EST ? [facility] ? [address] ?[place] [address] ? Mammography Report ? Signed ? Patient: Kwan,Tri ?MR#: [id number] ?? 63 ? : 1970 ?Acct:[id number] ? Age/Sex: 53 / F ?ADM Date: 01/15/25 ? Loc: HO.MAMMO ? Attending Kailee Horn DO ? Ordering Physician: Farhana Horn DO ?Results: 1N ?? egative ? Date of Service: 09/23/24 ?Follow Up: 1 Year From Orig ?? inal Mammogram ? Procedure(s): MM tomosynthesis screening BI ?? Accession Number(s): [id number] ? cc: Farhana Horn DO ? EXAMINATION: [...] DD/ 1030 ? TD/TT: 09/23/24 1041 ? Software Engineer Mobile: ? Procedure Note Donotuseinterpreter, Image - 10/04/2024 [facility] [address] [place] [address] Mammography Report Signed Patient: Tri BowensMR#: [id number] 63 : 1970Acct:[id number] Age/Sex: 53 / FADM Date: 09/23/24 Loc: HO.MAMMO Attending Dr: Farhana Horn DO Ordering Physician: Farhana Hornults: 1N egative Date of Service: 09/23/24Follow Up: 1 Year From Orig inal Mammogram Procedure(s): MM tomosynthesis screening BI Accession Number(s): [id number] cc: Farhana Horn DO EXAMINATION: MM SCREENING [...] 10/04/24 0911 DD/ 1030 TD/TT: 09/23/24 1041 Software Engineer Mobile: us Farhana Kory DO IMG BI PROCEDURES Edited Res ult - Final * Hematoxylin and Eosin Stain (09/04/2024 10:52 AM EST) 09/04/2024 10:5 2 AM EST 09/04/2024 11:33 AM EST [facility] - 09/11/2024 8:22 AM EST ----- ------- Name: Tri Bowens ? Age/Sex: 53/F ? : 1970 Unit#: [id number] ?? Attend Dr: Nani Bonner MD ?Re09/04/24 ?Status: DEP SDC ? Location: HO.SSS ?Disch: ? ----- ------- SPEC : [id number] ? RECD: 09/04/24-1132 ? STATUS: ??SOUT ? REQ NUM: [id number] ? ANITA: 09/04/24-1052 ? SUBM DR: Nani [...] ? Age/Sex: 53/F ? : 1970 Unit#: [id number] ?? Attend Dr: Nani Bonner MD ?Re09/04/24 ?Status: DEP SDC ? Location: HO.SSS ?Disch: ? ----- ------- SPEC : [id number] ? RECD: 09/04/24-938 ? STATUS: ??SOUT ? REQ NUM: [id number] ? ANITA: 09/04/24-1052 ? SUBM DR: Nani [...] Copies To: ?? Farhana Horn DO ?? [facility] ?? [address] ?? [place] [address] ?? [phone] ?? Nani Bonner MD ?? [facility] ?? [address] ?? [place] ?? [phone] ?? ----- ------- Signed (signature on file) Deb [place] 09/07/24 1557 ? ----- ------- ? END OF REPORT ? us Generic External Data Provider LAB BLOOD ORDERAB LES Final Result Performing Organization Address [facility] Co de Phone Number [facility] [address] [place] [address] [phone] * Glucose, Whole Blood (09/04/2024 10:10 AM EST) [facility] Glucose, Whole Blood 107 60 - 115 mg/dL [facility] Comment:METER #: [id number] 09/04/2024 10:1 0 AM EST 09/04/2024 10:18 AM EST Generic External Data Provider LAB BLOOD ORDERAB LES Final Result Performing Organization Address [facility] Co de Phone Number [facility] [address], [place] [phone] * Albumin, Random Urine W/Creatinine (07/26/2023 12:26 PM EST) Pathologist [facility] Creatinine, Urine 182.16 mg/dL [facility] Microalbumin Urine 14.0 mg/L [facility] Microalbum Creatinine Ratio Ur 7.6 <30 ug/mg cr [facility] Comment:Albumin/Creatinine R atio Reference Ranges: Normal: < 30 ug/mg creatinine Microalbuminuria: 30 - 300 ug/mg creatinineClinical Albuminuria: > 300 ug/mg creatinine 07/26/2023 12:2 6 PM EST 07/26/2023 1:28 PM EST Farhana Horn DO LAB URINE ORDERABLES Final R esult [facility] [address] [place] [phone] * (ABNORMAL) Lipid Panel, Standard (07/26/2023 12:23 PM EST) Triglycerides 132 <150 mg/dL [facility] Comment:Desirable Triglyceri de: less than 150 mg/dLBorderline High Triglyceride 150-199 mg/dLHigh Triglyceride: 200-499 mg/dLVery High Triglyceride: greater than or equal to 5OO mg/dL Cholesterol 150 <200 mg/dL [facility] Comment:Desirable Cholestero l: less than 200 mg/dLBorderline High Cholesterol: 200-239 mg/dLHigh Cholesterol: greater than 239 mg/dL LDL Cholesterol Calculated 85 <100 mg/dL [facility] Comment:Desirable LDL: less than 100 mg/dLNear [...] EST 07/26/2023 1:26 PM EST us Farhana Hillyesi DO LAB BLOOD ORDERABLES Final R esult [facility] [address] [place] [address] [phone] * HEPATITIS C AB W/REFL TO [...] a test for HCV RNA (test code 65679) is suggested. ?? For additional information please refer to http://[employer] Intelligence/faq/BBU04c1 (This link is being provided for informational/ educational purposes only.) ?? 07/09/2022 8:24 AM EDT Farhana Kochclaudio DO HISTORICAL/NON ORDERABLE LAB S Final Result [...] ? For additional information please refer to http://American Giant.turboBOTZ/faq/OED003 (This link is being provided for informational/ [...] Most Recently Relevant to Health Maintenance Insurance [address] [place], [place] [address] C3 Care Teams Brick Catcher Relationship Specialty Start Date End Date Farhana Horn DO [address] [place] [phone] PCP - General Family Medicine 09/09/18
--- OUTSIDE RECORDS SUMMARY | 2024-11-25 11:27 | XMS_ITS | Encounter Summary ---
Author Organization [employer] Address [address] [place] [address] [address] [place] [address] Care Team Providers Care Evaluation Engineer Name Role Phone Farhana Horn DO Primary Care Provider + [phone] Encounter Details Date Type Department Care Team ([facility] st Contact Info) Description 11/04/2024 10:00 AM EST Office Visit [facility] MEDICINE [address] [place] [address] Farhana Horn DO [address] [place] [address] Generalized abdominal pain (Primary Dx); Cough with hemoptysis; Generalized weakness; Type 2 diabetes mellitus without complication, without long-term current use of insulin ([facility]) Social History Tobacco Use Types [...] Description 01/29/2025 10:15 AM EDT Office Visit [facility] [address] [place] [address] Farhana Horn DO [address] [place] [address] documented as of this encounter Procedures Procedure Name Priority Date/Time Associated Diagnosis Comments POCT GLYCATED HEMOGLOBIN, TOTAL Routine 11/04/2024 10:14 AM EST Type 2 diabetes mellitus without complication, without long-term current use of insulin ([facility]) POCT GLUCOSE Routine 11/04/2024 10:14 AM EST Type 2 diabetes mellitus without complication, without long-term current use of insulin ([facility]) documented in this encounter Results * POCT Glucose (11/04/2024 10:14 AM EST) Glucose Blood, POC 141 60 - 200 mg/dL QC Media Lot # [id number] Lot# Expiration Date [id number] Blood Capillary blood specimen / Unknown 11/04/2024 10:14 AM EST Farhana Horn DO POINT OF CARE TEST ENTER/PAUL T ORDERABLES Final Result * (ABNORMAL) POCT HGB A1C (11/04/2024 10:14 AM EST) Hemoglobin A1C 6.5(A) 4.0 - 6.0 % QC Media Lot # [id number] Lot# Expiration Date ,297 Blood 11/04/2024 10:1 4 AM EST Farhana Horn DO POINT OF CARE TEST ENTER/PAUL T ORDERABLES Final Result documented in this encounter Visit Diagnoses Diagnosis Generalized abdominal pain- Primary Abdominal pain, generalized Cough with hemoptysis Generalized weakness Type 2 diabetes mellitus without complication, without long-term current use of insulin ([facility]) documented in this encounter Additional Health Concerns Assessment Noted Time PHQ-9 Depression Total Score: 4 12/09/19 24 10:18 AM EDT documented as of this encounter Care Teams Evaluation Engineer Relationship Specialty Start Date End Date Farhana Horn DO [address] [place] [address] PCP - General Family Medicine 09/09/18 documented as of this encounter
--- OUTSIDE RECORDS SUMMARY | 2024-11-25 11:27 | XMS_ITS | Encounter Summary ---
Author Organization [employer] Address [address] [place] [address] [address] [place] [address] Care Team Providers Care Hoist Operator Name Role Phone Farhana Horn DO Primary Care Provider + [phone] Reason for Visit * Reason Comments Med Refill Encounter Details Date Type Department Care Team (Late Contact Info) Description 12/13/2022 Refill [facility] MED & PEDS [address] [place] [address] [facility] [address] [place] [address] Hyperlipidemia, unspecified hyperlipidemia type Social History Tobacco [...] Description 01/29/2025 10:15 AM EDT Office Visit [facility]INE [address] [place] [address] Farhana Horn DO [address] [place] [address] documented as of this encounter Visit Diagnoses Diagnosis Hyperlipidemia, unspecified hyperlipidemia type documented in this encounter Care Teams Hoist Operator Relationship Specialty Start Date End Date Farhana Horn DO [address] [place] [address] PCP - General Family Medicine 09/09/18 documented as of this encounter
--- OUTSIDE RECORDS SUMMARY | 2024-11-25 11:27 | XMS_ITS | Encounter Summary ---
Author Organization [employer] Address [address] [facility] 7t [place] [address] Care Team Providers Care Associate Professor Of Theology Name Role Phone Farhana Horn DO Primary Care Provider + [phone] Reason for Visit * Reason Onset Date Comments Med Refill 11/23/2024 Encounter Details Date Type Department Care Team ([facility] st Contact Info) Description 11/23/2024 Refill [facility] CHC MED & PEDS [address] [place] [address] Farhana Horn DO [address] [place] [address] Social History Tobacco Use Types Packs/Day Years [...] Description 01/29/2025 10:15 AM EDT Office Visit [facility] [address] [place] [address] Farhana Horn DO [address] [place] [address] documented as of this encounter Visit Diagnoses Not on filedocumented in this encounter Additional Health Concerns Assessment Noted Time PHQ-9 Depression Total Score: 4 12/09/19 24 10:18 AM EDT documented as of this encounter Care Teams Associate Professor Of Theology Relationship Specialty Start Date End Date Farhana Horn DO [address] [place] [address] PCP - General Family Medicine 09/09/18 documented as of this encounter
--- OUTSIDE RECORDS SUMMARY | 2024-11-25 11:27 | XMS_ITS | Encounter Summary ---
Author Organization [employer] [facility] Address [address] [place] [address] [address] [place] [address] Care Team Providers Care Bullet Casting Operator Name Role Phone Farhana Horn DO Primary Care Provider [phone] Encounter Details Date Type Department Care Team (Latest Contact Info) Description 10/16/2019 Abstract [facility] CONVERSIONS Dental, Provider, DDS Social History [...] Description 01/29/2025 10:15 AM EDT Office Visit [facility] MEDICINE [address] [place] [address] Farhana Horn DO [address] [place] [address] documented as of this encounter Visit Diagnoses Not on filedocumented in this encounter Care Teams Bullet Casting Operator Relationship Specialty Start Date End Date Farhana Horn DO [address] [place] [address] PCP - General Family Medicine 09/09/18 documented as of this encounter
--- OUTSIDE RECORDS SUMMARY | 2024-11-25 11:27 | XMS_ITS | Encounter Summary ---
Author Organization [employer] Address [address] [place] [address] 7t [place] [address] Care Team Providers Care Internal Control Consultant Name Role Phone Farhana Horn DO Primary Care Provider + [phone] Reason for Visit * Reason Onset Date Comments Care Coordination 11/09/2024 C3CM initial a ssessment/ enrollment Encounter Details Date Type Department Care Team ([facility] st Contact Info) Description 11/09/2024 Telephone [facility] CHC MED & PEDS [address] [place] [address] Farhana Horn DO [address] [facility] [place] [address] Care Coordination (C3 initial assessment/ enrollment) Social [...] 1:02 PM EST Pt is requesting for [facility] referral for depression * Telephone Encounter [...] month 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 Pt states she owns on her utilities. [...] to her upcoming appointment so that the curriculum development manager can review it. Pt however reports compliant [...] understanding, and able to repeat back to software writer. A follow up call will be [...] Description 01/29/2025 10:15 AM EDT Office Visit [facility] MEDICINE [address] [place] [address] Farhana Horn DO [address] [place] [address] documented as of this encounter Visit Diagnoses Not on filedocumented in this encounter Additional Health Concerns Assessment Noted Time PHQ-9 Depression Total Score: 4 12/09/19 24 10:18 AM EDT documented as of this encounter Care Teams Internal Control Consultant Relationship Specialty Start Date End Date Farhana Horn DO [address] [place] [address] PCP - General Family Medicine 09/09/18 documented as of this encounter
--- OUTSIDE RECORDS SUMMARY | 2024-11-25 11:27 | XMS_ITS | Encounter Summary ---
Author Organization [employer] Address [address] [place] [address] 7t [place] [address] Care Team Providers Care Gore Maker Name Role Phone Farhana Horn DO Primary Care Provider + [phone] Reason for Visit * Reason Onset Date Comments Appointment Request 10/29/2024 Encounter Details Date Type Department Care Team ([facility] st Contact Info) Description 10/29/2024 Telephone [facility] MEDICINE [address] [place] [address] Farhana Horn DO [address] [place] [address] Appointment Request Social History Tobacco Use Types [...] Description 01/29/2025 10:15 AM EDT Office Visit [facility] MEDICINE [address] [place] [address] Farhana Horn DO [address] [place] [address] documented as of this encounter Visit Diagnoses Not on filedocumented in this encounter Additional Health Concerns Assessment Noted Time PHQ-9 Depression Total Score: 4 12/09/19 24 10:18 AM EDT documented as of this encounter Care Teams Gore Maker Relationship Specialty Start Date End Date Farhana Horn DO [address] [place] [address] PCP - General Family Medicine 09/09/18 documented as of this encounter
--- OUTSIDE RECORDS SUMMARY | 2024-11-25 11:27 | XMS_ITS | Encounter Summary ---
Author Organization [employer] Address [address] [facility] 7t [place] [address] Care Team Providers Care Tape Coater Name Role Phone Farhana Horn DO Primary Care Provider + [phone] Encounter Details Date Type Department Care Team ([facility] st Contact Info) Description 08/08/2023 Telephone [facility] MEDICINE [address] [place] [address] Farhana Horn DO [address] [place] [address] Social History Tobacco Use Types Packs/Day Years [...] Description 01/29/2025 10:15 AM EDT Office Visit [facility] MEDICINE [address] [place] [address] Farhana Horn DO [address] [place] [address] documented as of this encounter Visit Diagnoses Not on filedocumented in this encounter Additional Health Concerns Assessment Noted Time PHQ-9 Depression Total Score: 24 023 11:05 AM EDT documented as of this encounter Care Teams Tape Coater Relationship Specialty Start Date End Date Farhana Horn DO [address] [place] [address] PCP - General Family Medicine 09/09/18 documented as of this encounter
--- OUTSIDE RECORDS SUMMARY | 2024-11-25 11:27 | XMS_ITS | Encounter Summary ---
Author Organization [employer] Address [address] [facility] 7t [place] [address] Care Team Providers Care Cooling System Operator Name Role Phone KoryFarhana Primary Care Provider + [phone] Encounter Details Date Type Department Care Team (Late st Contact Info) Description 12/20/2023 Orders Only [facility] MEDICINE [address] [place] [address] ProviderPantera MD Social History Tobacco Use Types [...] the past 12 months, has t he [employer], gas, oil or water company threatened to [...] Description 01/29/2025 10:15 AM EDT Office Visit [facility] MEDICINE [address] [place] [address] Farhana Horn DO [address] [place] [address] documented as of this encounter Procedures Procedure [...] documented as of this encounter Care Teams Cooling System Operator Relationship Specialty Start Date End Date Farhana Horn DO [address] [place] [address] PCP - General Family Medicine 09/09/18 documented as of this encounter
--- OUTSIDE RECORDS SUMMARY | 2024-11-25 11:27 | XMS_ITS | Encounter Summary ---
Author Organization [employer] Address [address] [place] [address] 7t [place] [address] Care Team Providers Care Home Health Scheduler Name Role Phone LizFarhana key Primary Care Provider [phone] Encounter Details Date Type Department Care Team [...] Description 01/29/2025 10:15 AM EDT Office Visit [facility] MEDICINE [address] [place], [place] [phone] Farhana Horn DO [address] [place], [place] [phone] documented as of this encounter Procedures Procedure Name Priority Date/Time Associated Diagnosis Comments HPV DNA, LOW/HIGH RISK Routine 10/27/2024 9:07 AM EST PAP SMEAR Routine 10/27/2024 9:07 AM EST documented in this encounter Results * Pap Smear (10/27/2024 9:07 AM EST) 10/27/2024 9:07 AM EST 10/27/2024 2:15 PM EST [facility] - 11/02/2024 3:56 PM EST ----- ------- Name: Tri Bowens ? Age/Sex: 53/F ? : 1970 Unit#: [id number] ?? Attend Dr: Fabio Morin MD ?Re10/27/24 ?Status: DEP REF ? Location: HO.LNP ?Disch: ? ----- ------- SPEC : [id number] ? RECD: 10/27/24 ? STATUS: ??SOUT ? REQ NUM: [id number] ? ANITA: 10/27/24 ? SUBM DR: Fabio [...] Copies To: ?? Farhana Horn DO ?? [facility] ?? [address] [facility] ?? [place] [address] ?? [phone] ?? Fabio Morin MD ?? [facility] ?? [address] [facility] [address] ?? [place] [address] ?? [phone] ----- ------- Signed (signature on file) CORI Ortez (ASCP) 11/02/24 1556 ? ----- ------- ? END OF REPORT ? us Generic External Data Provider LAB CYTOLOGY ORDE QUE Final Result [facility] [address] [place] [address] [phone] * (ABNORMAL) HPV DNA, Low/High Risk (10/27/2024 9:07 AM EST) Pathologist [facility] HPV High Risk Positive(A) Negative [facility] HPV Genotype 16 Negative Negative [facility] HPV Genotype 18 Negative Negative [facility] Comment:HPV testing performe d at [facility] (CLIA#[id number]), [address] [place] [address].Testing for HPV was performed using the Milana [...] Provider LAB BLOOD ORDERAB LES Final Result [facility] [address] [place] [phone] documented in this encounter Visit Diagnoses Not on filedocumented in this encounter Additional Health Concerns Assessment Noted Time PHQ-9 Depression Total Score: 4 12/09/19 24 10:18 AM EDT documented as of this encounter Care Teams Home Health Scheduler Relationship Specialty Start Date End Date Farhana Horn DO [address] [place] [address] PCP - General Family Medicine 09/09/18 documented as of this encounter
--- OUTSIDE RECORDS SUMMARY | 2024-11-25 11:28 | XMS_ITS | Encounter Summary ---
Author Organization [employer] [facility] Address [address] [place] [address] [address], [place] [address] Care Team Providers Care Insurance Billing Specialist Name Role Phone Farhana Horn DO Primary Care Provider [phone] Encounter Details Date Type Department Care Team (Late st Contact Info) Description 09/12/2022 Orders Only [facility] MEDICINE [address] [place] [address] Farhana Horn DO [address] [place] [address] Social History Tobacco Use Types Packs/Day Years [...] Description 01/29/2025 10:15 AM EDT Office Visit [facility] MEDICINE [address] [place] [address] Farhana Horn DO [address] [place] [address] documented as of this encounter Visit Diagnoses Not on filedocumented in this encounter Care Teams Insurance Billing Specialist Relationship Specialty Start Date End Date Farhana Horn DO [address] [place] [address] PCP - General Family Medicine 09/09/18 documented as of this encounter
--- OUTSIDE RECORDS SUMMARY | 2024-11-25 11:28 | XMS_ITS | Encounter Summary ---
Author Organization [employer] [facility] Address [address] [facility] 7t [place] [address] Care Team Providers Care Psychologist Personnel Name Role Phone LizFarhana key Primary Care Provider [phone] Encounter Details Date Type Department Care Team ([facility] st Contact Info) Description 11/20/2024 Population Health Risk Score [facility] (C3) Department [address] [phone] Provider, Population Health Generic Social History Tobacco Use Types Packs/Day Years [...] AM EDT Office Visit [facility] MEDICINE [address] [place] [address] Farhana Horn DO [address] [place] [address] documented as of this encounter Visit Diagnoses Not on filedocumented in this encounter Additional Health Concerns Assessment Noted Time PHQ-9 Depression Total Score: 4 12/09/19 24 10:18 AM EDT documented as of this encounter Care Teams Psychologist Personnel Relationship Specialty Start Date End Date Farhana Horn DO [address] [place] [address] PCP - General Family Medicine 09/09/18 documented as of this encounter
--- OUTSIDE RECORDS SUMMARY | 2024-11-25 11:28 | XMS_ITS | Encounter Summary ---
Author Organization [employer] Address [address] [place] [address] 7[address] [place] [address] Care Team Providers Care Hydrometer Tester Name Role Phone LizFarhana key Primary Care Provider [phone] Encounter Details Date Type Department Care Team [...] Description 01/29/2025 10:15 AM EDT Office Visit [facility] MEDICINE [address] [place] [address] Farhana Horn DO [address] [place] [address] documented as of this encounter Procedures Procedure Name Priority Date/Time Associated Diagnosis Comments GLUCOSE, WHOLE BLOOD Routine 11/13/2024 9:04 AM EST documented in this encounter Results * (ABNORMAL) Glucose, Whole Blood (11/13/2024 9:04 AM EST) Glucose, Whole Blood 165(H) 60 - 115 mg/dL [facility] Comment:METER #: [id number] Testing performed in the Endocrinology Department [address], [address], [facility]. 11/13/2024 9:04 AM EST 11/13/2024 9:12 AM EST us Generic External Data Provider LAB BLOOD ORDERAB LES Final Result [facility] [address] [place] [address] [phone] documented in this encounter Visit Diagnoses Not on filedocumented in this encounter Additional Health Concerns Assessment Noted Time PHQ-9 Depression Total Score: 4 12/09/19 24 10:18 AM EDT documented as of this encounter Care Teams Hydrometer Tester Relationship Specialty Start Date End Date Farhana Horn DO [address] [place] [address] PCP - General Family Medicine 09/09/18 documented as of this encounter
[2024-11-25 13:20] VITALS: BMI 29.7
[2024-11-26 13:24] VITALS: BMI 29.7
== END 2024-11-25 16:07 | disposition home or self-care (01) ==
LOC: HO.ENCR 10:00
PROVIDERS: PCP Family Medicine; Visit Provider Dietitian, Registered
DX: E11.9 Type 2 diabetes mellitus without complications (principal)

== ENCOUNTER → 2024-11-25 09:59 | Outpatient (BNVA) | payer MEDICAID, SELFPAY | PROVIDERS: PCP Family Medicine; Visit Provider Dietitian, Registered | DX: E11.9 Type 2 diabetes mellitus without complications (principal) | CPT/HCPCS: 97802 ==

== ENCOUNTER 2024-12-02 09:33 | Outpatient (REF) | payer MEDICAID, SELFPAY | END 2024-12-02 09:34 | disposition home or self-care (01) | LOC: HO.LNP 09:33 | PROVIDERS: PCP Family Medicine; Visit Provider Obstetrics & Gynecology | DX: B97.7 Papillomavirus as the cause of diseases classified elsewhere (principal) | CPT/HCPCS: 57454; 88305 ==

== ENCOUNTER 2024-12-02 09:33 | Outpatient (AMB) | payer MEDICAID, SELFPAY ==
--- NOTE | 2024-12-02 10:04 | MHC.OFFVIS ---
Intake Visit Reasons: Colposcopy Soaking Pit Operator Required: Yes Soaking Pit Operator Language: Tar Worker Services: Soaking Pit Operator Present (in person) Soaking Pit Operator Name: HARPREET Kelsey Information Interpreted: non-clinical & clinical Aurist: Aurist Present (HARPREET Kelsey) Accompanied by: Self / Same As Patient Allergies Penicillins [PENICILLINS] Allergy (Severe, Verified 12/02/24 10:05) RASH dulaglutide [From Trulicity] Adverse Reaction (Mild, Verified 12/02/24 10:05) Abdominal Pain Is last menstrual period known: No Post menopausal: Yes Patient : No HPI Comments Details: Presenting for recent Pap smear which was negative/HPV positive, HPV 16/18 negative last co testing done in 07/29 was negative PFSH Medical History Type 2 diabetes mellitus Diverticulosis Renal calculi Gastric varices Migraine headache Depression GERD (gastroesophageal reflux disease) Diabetes mellitus Adrenal nodule IBS (irritable bowel syndrome) HTN (hypertension) Hyperlipemia Surgical History History of surgery History of esophagogastroduodenoscopy (EGD) Hx of colonoscopy Hx of tubal ligation Hx of discectomy Family History Father Hx of type 1 diabetes mellitus History of epilepsy Mother Family history of high blood pressure Hx of cancer of uterus Social History Household Members Other:: daughter Housing: House Alcohol intake: never Patient Tobacco Use Status: Never used Tobacco Patient : No Current occupational status: employed Current occupation: [employer]- right handed Sexual orientation: Straight/Heterosexual Gender identity: Female Female Reproductive History Menstrual Age of Menarche: 10 Review of Systems Const All systems reviewed & are unremarkable except as noted in HPI and below Physical Exam General: Yes no CVA tenderness External Female Exam: normal external appearance and normal appearance of the urethra Speculum Exam - Vagina: normal appearance of the vagina, normal palpation, no lesions and no masses Speculum Exam - Cervix: normal appearance of the cervix, normal palpation, no lesions, no masses and nontender Bimanual exam- vagina & uterus: normal bimanual exam, normal palpation, uterine size normal, normal palpation, uterine shape normal, No Cervical tenderness present and non-tender Bimanual Exam- Adnexa, other: normal adnexae Back/Spine/Pelvis Back: no CVA tenderness Office Procedures Colposcopy Colposcopy: Pre-Procedure Counseling: Before beginning the procedure, I conducted comprehensive counseling with the patient. We thoroughly discussed the procedure itself, including its details, alternatives, and all associated risks. This included but not limited to the following complications such as bleeding, infection, and injury to the vagina, bladder, and vessels, as well as the potential need for transfusion with all its associated risks. Subsequently, the patient sign the consent. Pap smear result: Negative Pap/HPV positive, HPV 16/18 negative. Procedure: During the procedure, the following steps were performed: A speculum was inserted, and acetic acid was applied. Colposcopy was conducted, allowing visualization of the transformation zone. Acetowhite lesions were identified at the 4+ 11 o'clock position. Cervical biopsies were obtained from the 4+ 11 o'clock position, followed by an endocervical curettage (ECC). Vaginoscopy of the upper vagina revealed no evidence of aceto-white lesions. Hemostasis was achieved using Monsel solution, and the patient tolerated the procedure well. Post-Procedure Instructions: The patient was advised to promptly contact the office or the after hours answering service or go to the emergency room if experiencing a temperature exceeding 100.4?F, abdominal pain, nausea/vomiting, or bleeding. Additionally, the patient was instructed to abstain from vaginal intercourse and bathtub use. The patient confirmed understanding of these instructions. Discharge Instructions: The patient was instructed to schedule a follow-up appointment in 2 weeks for further evaluation and management. Please note that this note was generated using a voice recognition program, and errors may have occurred during space engineer. [id number] of cervix including upper vagina with biopsy and ECC Procedure code (CPT) selection complete Assessment & Plan Assessment & Plan (1) HPV in female: Code(s): B97.7 - Papillomavirus as the cause of diseases classified elsewhere Category: Medical Plan: Discussed with the patient the result of her pap/if HPV positive, its significance, risk of progression, persistence, and regression. the false positive/negative rate of a Pap smear as a screening test in detecting cervical cancer and the indication for a diagnostic test -colposcopy, biopsy, endocervical curettage. The patient verbalized understanding and agreed with the plan, all questions answered. Colpo biopsy ECC done, see procedure note Orders: Orders AMB Colposcopy Today B97.7 - Papillomavirus as the cause of diseases classified elsewhere Coding Level of Care Code Procedure Only Diagnoses HPV in female B97.7 CPT Codes Colposcopy - CPT: 26775-[id number] of cervix including upper vagina with biopsy and ECC ([id number])
--- OUTSIDE RECORDS SUMMARY | 2024-12-02 10:38 | XMS_ITS | Encounter Summary ---
Author Organization [employer] Address [address] [facility] 7t [place] [address] Care Team Providers Care Putaway Driver Name Role Phone LizFarhana key Primary Care Provider + [phone] Encounter Details Date Type Department Care Team (Late st Contact Info) Description 11/04/2024 Orders Only [facility] External Provider, [facility] Social History Tobacco Use Types Packs/Day [...] 01/29/2025 10:15 AM EDT Office Visit [facility] [address] [place], [place] [phone] Farhana Horn DO [address] [place], [place] [phone] documented as of this encounter Procedures Procedure [...] Influenza A PCR POSITIVE(A) Negative [facility] Influenza B PCR NEGATIVE Negative [facility] Resp Syncy Virus RNA Qual PCR NEGATIVE Negative [facility] SARS COV2 PCR NEGATIVE Negative [facility] Comment:All test results mus t be [...] use by authorized laboratories.Testing performed on the [employer] [place] GeneXpert utilizingreal-time RT-PCR.All SARS CoV2 and positive influenza A/B results arereported to [facility]. 11/04/2024 2:59 PM EST 11/04/2024 3:03 PM EST us Generic External Data Provider LAB MICROBIOLOGY - GENERAL ORDERABLES Final Result [facility] [address] [place] [address] [phone] * CTA Chest PE Protocal (11/04/2024 1:16 PM EST) Anatomical Region Laterality Modality Body, Chest Computed Tomogra phy 11/04/2024 1:16 PM EST Narrative 11/04/2024 1:38 PM EST ? [facility] ?[address] ?[place] [address] ? CT Scan Report ? Signed ? Patient: Tri Bowens ?MR#: [id number] ?? 63 ? : 1970 ?Acct:[id number] ? Age/Sex: 54 / F ?ADM Date: 11/04/24 ? Loc: HO.ED ? Attending Dr: ? Ordering Physician: Brenden Denton MD ?? Date of Service: 11/04/24 ?? Procedure(s): CT angio chest PE protocol ?? Accession Number(s): [id number] ? cc: Brenden Denton MD; Farhana Horn DO ? Report Number: ?? [id number]: Total DLP = ??278.00 mGy-cm ?? EXAMINATION: [...] DD/ 1316 ? TD/TT: 11/04/24 1316 ? Steam Heating Installer: ? Procedure Note Wai Bose - 11/04/[address] [address] [address] Scan Report Signed Patient: Tri Bowens#: [id number] 63 : 1970Acct:[id number] Age/Sex: 54 / FADM Date: 11/04/24 Loc: HO.ED Attending Dr: Ordering Physician: Brenden Denton MD Date of Service: 11/04/24 Procedure(s): CT angio chest PE protocol Accession Number(s): [id number] cc: Brenden Denton MD; Farhana Horn DO Report Number: [id number]: Total DLP = 278.00 mGy-cm EXAMINATION: CT [...] by: Yariel Brooks MD 11/04/2024 01:34 PM [facility] Dictated By: Yariel Buchanan MD Signed By: <Electronically signed by Yariel Garcia MDin OV> 11/04/24 1334 DD/ 1316 TD/TT: 11/04/24 1316 Steam Heating Installer: [facility] External Provider IMG CT PROCEDURES Final Result * CT Abdomen Pelvis w/ Contrast (11/04/2024 11:43 AM EST) Anatomical Region Laterality Modality Body, Pelvis, Abdomen Computed T omography 11/04/2024 11:4 3 AM EST Narrative 11/04/2024 1:32 PM EST ? [facility] ?[address] ?[place] [address] ? CT Scan Report ? Signed ? Patient: Kwan,Tri ?MR#: [id number] ?? 63 ? : 1970 ?Acct:[id number] ? Age/Sex: 54 / F ?ADM Date: 11/04/24 ? Loc: HO.ED ? Attending Dr: ? Ordering Physician: Brenden Denton MD ?? Date of Service: 11/04/24 ?? Procedure(s): CT abdomen pelvis w IV con ?? Accession Number(s): [id number] ? cc: Brenden Denton MD; Farhana Horn DO ? Report Number: ?? [id number]: Total DLP = ??462.00 mGy-cm ?? EXAMINATION: [...] DD/ 1143 ? TD/TT: 11/04/24 1316 ? Steam Heating Installer: ? Procedure Note Doncitlalyter, Image - 11/04/[address] [place] [address] [address] Scan Report Signed Patient: Wang Bowens#: [id number] 63 : 1970Acct:[id number] Age/Sex: 54 / FADM Date: 11/04/24 Loc: HO.ED Attending Dr: Ordering Physician: Brenden Denton MD Date of Service: 11/04/24 Procedure(s): CT abdomen pelvis w IV con Accession Number(s): [id number] cc: Brenden Denton MD; Farahna Horn DO Report Number: [id number]: Total DLP = 462.00 mGy-cm EXAMINATION: CT [...] MD 11/04/2024 01:28 PM [facility] Dictated By: Yariel Buchanan MD Signed By: <Electronically signed by Yariel Garcia MDin OV> 11/04/24 1328 DD/ 1143 TD/TT: 11/04/24 1316 Steam Heating Installer: [facility] External Provider IMG CT PROCEDURES Final Result documented in this encounter Visit Diagnoses Not on filedocumented in this encounter Additional Health Concerns Assessment Noted Time PHQ-9 Depression Total Score: 4 12/09/19 24 10:18 AM EDT documented as of this encounter Care Teams Putaway Driver Relationship Specialty Start Date End Date Farhana Horn DO [address] [place] [address] PCP - General Family Medicine 09/09/18 documented as of this encounter"
--- OUTSIDE RECORDS SUMMARY | 2024-12-02 10:38 | XMS_ITS | Encounter Summary ---
Author Organization [employer] Address [address] [facility] 7t [place] [address] Care Team Providers Care Resident Manager Name Role Phone KoryFarhana Primary Care Provider + [phone] Encounter Details Date Type Department Care Team (Late st Contact Info) Description 12/20/2023 Orders Only [facility] [address] [place] [address] ProviderPantera MD Social History Tobacco Use Types [...] the past 12 months, has t he [place] [employer], gas, oil or water company threatened to [...] 10:15 AM EDT Office Visit [facility] [address] [place] [address] Farhana Horn DO [address] [place] [address] documented as of this encounter Procedures Procedure [...] as of this encounter Care Teams Resident Manager Relationship Specialty Start Date End Date Farhana Horn DO [address] [place] [address] PCP - General Family Medicine 09/09/18 documented as of this encounter
--- OUTSIDE RECORDS SUMMARY | 2024-12-02 10:38 | XMS_ITS | Encounter Summary ---
Author Organization [employer] Address [address] [place] [address] 7t [place] [address] Care Team Providers Care Director Of In Service Education Name Role Phone Farhana Horn Primary Care Provider [phone] Encounter Details Date Type Department Care Team [...] Description 01/29/2025 10:15 AM EDT Office Visit [facility] [address] [place] [address] Farhana Horn DO [address] [place] [address] documented as of this encounter Visit Diagnoses Not on filedocumented in this encounter Additional Health Concerns Assessment Noted Time PHQ-9 Depression Total Score: 4 12/09/19 24 10:18 AM EDT documented as of this encounter Care Teams Director Of In Service Education Relationship Specialty Start Date End Date Farhana Horn DO [address] [place] [address] PCP - General Family Medicine 09/09/18 documented as of this encounter
--- OUTSIDE RECORDS SUMMARY | 2024-12-02 10:38 | XMS_ITS | Encounter Summary ---
Author Organization [employer] Address [address] [facility] 7t [place] [address] Care Team Providers Care Combat Systems Officer Name Role Phone Farhana Horn DO Primary Care Provider + [phone] Encounter Details Date Type Department Care Team ([facility] st Contact Info) Description 08/08/2023 Telephone [facility] [address] [place] [address] Farhana Horn DO [address] [place] [address] Social History Tobacco Use Types Packs/Day Years [...] Description 01/29/2025 10:15 AM EDT Office Visit [facility] [address] [place] [address] Farhana Horn DO [address] [place] [address] documented as of this encounter Visit Diagnoses Not on filedocumented in this encounter Additional Health Concerns Assessment Noted Time PHQ-9 Depression Total Score: 24 023 11:05 AM EDT documented as of this encounter Care Teams Combat Systems Officer Relationship Specialty Start Date End Date Farhana Horn DO [address] [place] [address] PCP - General Family Medicine 09/09/18 documented as of this encounter
--- OUTSIDE RECORDS SUMMARY | 2024-12-02 10:38 | XMS_ITS | Encounter Summary ---
Author Organization [employer] Address [address] [place] [address] 7 [place] [address] Care Team Providers Care Platform Stapler Name Role Phone Farhana Horn DO Primary Care Provider + [phone] Reason for Visit * Reason Comments Med Refill Encounter Details Date Type Department Care Team (Late Contact Info) Description 12/13/2022 Refill [facility] [address] [place] [address] [facility] [address] [place] [address] Hyperlipidemia, unspecified hyperlipidemia type Social History Tobacco [...] Office Visit [facility] [address] [place] [address] Farhana Horn DO [address] [place] [address] documented as of this encounter Visit Diagnoses Diagnosis Hyperlipidemia, unspecified hyperlipidemia type documented in this encounter Care Teams Platform Stapler Relationship Specialty Start Date End Date Farhana Horn DO [address] [place] [address] PCP - General Family Medicine 09/09/18 documented as of this encounter
--- OUTSIDE RECORDS SUMMARY | 2024-12-02 10:38 | XMS_ITS | Encounter Summary ---
Author Organization [employer] [facility] Address [address] [place] [address] [address] [place] [address] Care Team Providers Care Bookkeeping Service Sales Agent Name Role Phone Farhana Horn DO Primary Care Provider Encounter Details Date Type Department Care Team (Latest Contact Info) Description 10/16/2019 Abstract [facility] Dental, Provider, DDS Social History [...] Description 01/29/2025 10:15 AM EDT Office Visit [facility] [address] [place] [address] Farhana Horn DO [address] [place] [address] documented as of this encounter Visit Diagnoses Not on filedocumented in this encounter Care Teams Bookkeeping Service Sales Agent Relationship Specialty Start Date End Date Farhana Horn DO [address] [place] [address] PCP - General Family Medicine 09/09/18 documented as of this encounter
--- OUTSIDE RECORDS SUMMARY | 2024-12-02 10:38 | XMS_ITS | Encounter Summary ---
Author Organization [employer] Address [address] [facility] 7t [place] [address] Care Team Providers Care Value Stream Manager Name Role Phone Farhana Horn DO Primary Care Provider + [phone] Reason for Visit * Reason Comments Care Coordination Outreach Encounter Details Date Type Department Care Team (Latest Contact Info) Description 11/05/2024 Patient Outreach [facility] [address] [place], [place] [phone] Farhana Horn DO [address] [facility] [place] [address] Care Coordination (Outreach) Social History Tobacco Use [...] outbound call to patient introducing herself from [facility], in regards to offering services. Patient's name and was confirmed. Patient agrees to participate in program. Appt. for initial assessment scheduled for 11/09/24 @ 10:00AM. CHW reinforced direct contact information or for any additional questions or concerns and extended clinic hours on Mondays and Wednesdays, and Walk-In Urgent Care Located in [facility]. Patient provided with after-hours line for [facility], , which offer night time triage service and option to transfer to erp implementation consultant provider if needed. Patient verbalizes understanding, and able to repeat back to creative services writer. documented in this encounter Plan of Treatment Upcoming Encounters Date Type Department Care Team (Late st Contact Info) Description 01/29/2025 10:15 AM EDT Office Visit [facility] [address] [place] [address] Farhana Horn, [address] [place] [address] documented as of this encounter Visit Diagnoses Not on filedocumented in this encounter Additional Health Concerns Assessment Noted Time PHQ-9 Depression Total Score: 4 12/09/19 24 10:18 AM EDT documented as of this encounter Care Teams Value Stream Manager Relationship Specialty Start Date End Date Farhana Horn DO [address] [place] [address] PCP - General Family Medicine 09/09/18 documented as of this encounter
--- OUTSIDE RECORDS SUMMARY | 2024-12-02 10:38 | XMS_ITS | Encounter Summary ---
Author Organization [employer] Address [address] [facility] 7t [place] [address] Care Team Providers Care Marking Room Supervisor Name Role Phone Farhana Horn DO Primary Care Provider + [phone] Reason for Visit * Reason Onset Date Comments Med Refill 11/23/2024 Encounter Details Date Type Department Care Team ([facility] st Contact Info) Description 11/23/2024 Refill [facility] [address] [place] [address] Farhana Horn DO [address] [place] [address] Social History Tobacco Use Types Packs/Day Years [...] AM EDT Office Visit [facility] [address] [place] [address] Farhana Horn DO [address] [place] [address] documented as of this encounter Visit Diagnoses Not on filedocumented in this encounter Additional Health Concerns Assessment Noted Time PHQ-9 Depression Total Score: 4 12/09/19 24 10:18 AM EDT documented as of this encounter Care Teams Marking Room Supervisor Relationship Specialty Start Date End Date Farhana Horn DO [address] [place] [address] PCP - General Family Medicine 09/09/18 documented as of this encounter
--- OUTSIDE RECORDS SUMMARY | 2024-12-02 10:38 | XMS_ITS | Encounter Summary ---
Author Organization [employer] Address [address] [facility] 7t [place] [address] Care Team Providers Care Tire Mold Engraver Name Role Phone Farhana oHrn Primary Care Provider + [phone] Reason for Visit * Reason Comments Diabetic Eye Exam Encounter Details Date Type Department Care Team (Late st Contact Info) Description 10/22/2024 2:00 PM EST Office Visit [facility] [address] [place] [address] Steven, Danette, OD [address] [place] [address] Diabetes type 2, no ocular involvement (CMS/HCC) [...] needed for MM SPASM/PAIN 60 tablet 5 xbntrbtxoi-uxbadlwbaofzr-clmpzxfu 50-325-40 MG tablet TAKE ONE TABLET BY [...] Left Vitreous Vitreous syneresis Vitreous syneresis Disc [place] and Distinct, no NVD [place] and Distinct, no NVD C/D Ratio Vertical 0.10 0.10 C/D Ratio Horizontal 0.10 0.10 Macula Flat and Intact, no CSME Vitelliform lesion/large drusen superotemporal to fovea, no CME/SRF Vessels Normal Normal Periphery No holes/breaks/tears 360 degrees, no NVE No holes/breaks/tears 360 degrees, no NVE Refraction Wearing Rx Sphere Cylinder [place] Add Right -2.75 -1.75 150 +2.00 Left -1.50 -1.00 030 +2.00 Manifest Refraction Sphere Cylinder [place] Dist [facility] Add Right -2.75 -1.75 150 20/20 +2.25 Left -1.50 -1.00 030 20/20 +2.25 Near VA Both: 20/20 Final Rx Sphere Cylinder [place] Dist VA Add Right -2.75 -1.75 150 20/20 +2.25 Left -1.50 -1.00 030 20/20 +2.25 Expiration Date: 10/22/2026 Assessment/plan: Diagnoses and all orders for this visit: Diabetes type 2, no ocular involvement ([facility]) There is no diabetic retinopathy or macular [...] through the shared patient problem list in [facility].Will monitor in 1 year. Headache, unspecified [...] with the content and plan as written. Administrator Health Care Facility Source: ___ None _x__ Bilingual Staff ___ Qualified Staff Warp Coiler ___ Telephone Administrator Health Care Facility; ID# ___ Administrator Health Care Facility brought by patient (family member, friend, RESEARCH ADVISOR, etc) ___ In person cage manager ___ Ipad Administrator Health Care Facility; ID#: Language Spoken During Exam: __Spanish documented in this encounter Plan of Treatment Upcoming Encounters Date Type Department Care Team (Late st Contact Info) Description 01/29/2025 10:15 AM EDT Office Visit [facility] [address] [place] [address] Farhana Horn DO [address] [place] [address] documented as of this encounter Procedures Procedure [...] Diagnosis Diabetes type 2, no ocular involvement ([facility])- Primary Headache, unspecified headache type 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
--- OUTSIDE RECORDS SUMMARY | 2024-12-02 10:38 | XMS_ITS | Encounter Summary ---
Author Organization [employer] Address [address] [place] [address] [address] [place] [address] Care Team Providers Care Civil Designer Name Role Phone LizFarhana key Primary Care Provider [phone] Encounter Details Date Type Department Care Team [...] AM EDT Office Visit [facility] MEDICINE [address] [place], [place] [phone] Farhana Horn DO [address] [place], [place] [phone] documented as of this encounter Procedures Procedure Name Priority Date/Time Associated Diagnosis Comments HPV DNA, LOW/HIGH RISK Routine 10/27/2024 9:07 AM EST PAP SMEAR Routine 10/27/2024 9:07 AM EST documented in this encounter Results * Pap Smear (10/27/2024 9:07 AM EST) 10/27/2024 9:07 AM EST 10/27/2024 2:15 PM EST [facility] - 11/02/2024 3:56 PM EST ----- ------- Name: Tri Bowens ? Age/Sex: 53/F ? : 1970 Unit#: [id number] ?? Attend Dr: Fabio Morin MD ?Re10/27/24 ?Status: DEP REF ? Location: HO.LNP ?Disch: ? ----- ------- SPEC : [id number] ? RECD: 10/27/24 ? STATUS: ??SOUT ? REQ NUM: [id number] ? ANITA: 10/27/24 ? SUBM DR: Fabio [...] Copies To: ?? Farhana Horn DO ?? [facility] ?? [address] [facility] ?? [place] [address] ?? [phone] ?? Fabio Morin MD ?? [facility] ?? [address] [facility] [address] ?? [place] [address] ?? [phone] ----- ------- Signed (signature on file) CORI Ortez (ASCP) 11/02/24 1556 ? ----- ------- ? END OF REPORT ? us Generic External Data Provider LAB CYTOLOGY ORDE QUE Final Result [facility] [address] [facility] [place] [address] [phone] * (ABNORMAL) HPV DNA, Low/High Risk (10/27/2024 9:07 AM EST) Pathologist [facility] HPV High Risk Positive(A) Negative [facility] HPV Genotype 16 Negative Negative [facility] HPV Genotype 18 Negative Negative [facility] Comment:HPV testing performe d at [facility] (CLIA#[id number]), [address] [place] [address].Testing for HPV was performed using the [employer] [...] Provider LAB BLOOD ORDERAB LES Final Result [facility] [address] [place] [phone] documented in this encounter Visit Diagnoses Not on filedocumented in this encounter Additional Health Concerns Assessment Noted Time PHQ-9 Depression Total Score: 4 12/09/19 24 10:18 AM EDT documented as of this encounter Care Teams Civil Designer Relationship Specialty Start Date End Date Farhana Horn DO [address] [place] [id number] PCP - General Family Medicine 09/09/18 documented as of this encounter
--- OUTSIDE RECORDS SUMMARY | 2024-12-02 10:38 | XMS_ITS | Encounter Summary ---
Author Organization [employer] Address [address] [facility] [address] [place] [address] Care Team Providers Care Budget Engineer Name Role Phone Farhana Horn DO Primary Care Provider + [phone] Reason for Visit * Reason Comments Care Coordination Outreach Encounter Details Date Type Department Care Team (Latest Contact Info) Description 11/23/2024 Patient Outreach [facility] [address] [place], [place] [phone] Farhana Horn DO [address] [facility] [place] [address] Care Coordination (Outreach) Social History Tobacco Use [...] Wednesdays, and Walk-In Urgent Care Located in [facility]. Patient provided with after-hours line for [facility], , which offer night time triage service and option to transfer to rotational moulding operator provider if needed. Patient verbalizes understanding, and able to repeat back to inspector automatic typewriter. A follow up call willbe placed within 10 days, patient agrees with plan. documented in this encounter Plan of Treatment Upcoming Encounters Date Type Department Care Team (Late st Contact Info) Description 01/29/2025 10:15 AM EDT Office Visit [facility] MEDICINE [address] [place] [address] Farhana Horn, [address] [place] [address] documented as of this encounter Visit Diagnoses Not on filedocumented in this encounter Additional Health Concerns Assessment Noted Time PHQ-9 Depression Total Score: 4 12/09/19 24 10:18 AM EDT documented as of this encounter Care Teams Budget Engineer Relationship Specialty Start Date End Date Farhana Horn DO [address] [place] [address] PCP - General Family Medicine 09/09/18 documented as of this encounter
--- OUTSIDE RECORDS SUMMARY | 2024-12-02 10:38 | XMS_ITS | Clinical Summary ---
Author Organization [employer] Address [address] [place] [address] [address] [place] [address] Care Team Providers Care Relief Master Name Role Phone Farhana Horn Primary Care Provider [phone] Allergies Active Allergy Reactions Criticality Noted Date [...] Adjustment disorder with depressed mood 11/25/19 25 Assessment & Plan (11/25/2024 11:32 AM EDT): During IBH Consult Tri presenting with depressed mood, Tearful, crying spells , hopelessness, irritable mood, loss of interests/pleasure , sense of isolation/loneliness , isolating, change in appetite or weight reduce appetite, changes in sleep difficulty falling asleep, psychomotor retardation, fatigue/loss of energy, worthlessness, inappropriate/excessive guilt , difficulty concentrating, indecisiveness; for a period of three weeks, for some symptoms in the context of family issues, financial concern, and illness or family illness. Tri recently had medical complications that are affecting her mental health. Pt is having a difficult time adjusting to new life style leading to feeling depressed and with no motivation to complete everyday tasks. Others stressors identified for presentation of sxs are family responsibility (pt takes care of her mother who is diagnosed with dementia) and financial problems. Pt lives with her daughter and finds comfort in her emotional support pet. Tri explored coping strategies that might be helpful during this transition. She completed the intake process with N at [facility] ([facility] after today's session. clinician will provide additional support to assess sxs and services in place. Pt agreed with the plan. Provided [facility] contact information. Healthcare maintenance 12/09/2023 Assessment & Plan (12/09/2023 2:24 PM EDT): -s/p flu vaccine JUL 2023 -s/p COVID vaccine JUL 2023 -s/p Tdap FEB 2021 -PCV20 today -s/p Shingrix Nov 2021 -Hep B immune -colonoscopy with diverticulosis January 2019, repeat 5 years per GI -mammo BIRADS 10 SEP 2023 -pap nml/HPV negative JUL 2020 with [employer] -DEXA with osteopenia JUL 2023 -STI/HIV [...] nightly -s/p optho eval Apr 2023 at [facility] -foot exam next visit* Allergic rhinitis [...] -f/u with neurology as scheduled -advised contact [facility] if no improvement Irritable bowel syndrome [...] Department Care Team Description 11/23/2024 Patient Outreach [facility] [address] [place] [address] Farhana Horn DO Care Coordination (Outreach) 11/23/2024 Refill [facility] [address] [place] [address] Farhana Horn DO 11/20/2024 Population Health [facility] ([facility]) Department [address] [place] [phone] Provider, Population Health Generic 11/13/2024 Orders Only GENERIC EXTERNAL DATA DEPARTMENT Provider, Generic External Data 11/09/2024 Telephone [facility] [address] [place] [address] Farhana Horn DO Care Coordination ([facility] initial assessment/ enrollment) 11/05/2024 Patient Outreach [facility] [address] [place] [address] Farhana Horn DO Care Coordination (Outreach) 11/04/2024 10:00 AM EST Office Visit [facility] [address] [place] [phone] Farhana Horn DO Generalized abdominal pain (Primary Dx); Cough with hemoptysis; Generalized weakness; Type 2 diabetes mellitus without complication, without long-term current use of insulin (CMS/HCC) 11/04/2024 Orders Only [facility] External Provider, [facility] 11/04/2024 Travel 10/29/2024 Orders Only GENERIC EXTERNAL DATA DEPARTMENT Provider, Generic External Data 10/29/2024 Telephone [facility] [address] [place] [phone] Farhana Horn DO Nurse Triage 10/29/[address] [address] Farhana Horn DO Appointment Request 10/27/2024 Orders Only GENERIC EXTERNAL DATA DEPARTMENT Provider, Generic External Data 10/23/2024 Refill [facility] [address] [place] [address] Farhana Horn DO Seasonal allergic rhinitis, unspecified trigger 10/22/2024 2:00 PM EST Office Visit [facility] OPTOMETRY [address] [place], [place] [phone] Steven, Danette, OD Diabetes type 2, no ocular involvement (CMS/HCC) (Primary Dx); Headache, unspecified headache type; Vitelliform lesion of macula; Combined forms of age-related cataract of both eyes; Meibomian gland disease, unspecified laterality; Presbyopia 10/22/2024 Travel 10/21/2024 Travel 10/15/2024 Telephone [facility] [address] [place] [address] Sudha Doss [place] Recall Letter (Recall Letter sent 10/15/24.) 09/21/2024 Refill [facility] [address] [place] [address] Farhana Horn, 09/08/2024 Refill [facility] [address] [place] [address] Farhana Horn, DO 09/04/2024 Orders Only GENERIC EXTERNAL DATA [...] Office Visit [facility] [address] [place] [address] Farhana Horn DO [address] [place] [address] Health Maintenance Due Date Last Done Comments [...] Whole Blood 165(H) 60 - 115 mg/dL [facility] Comment:METER #: [id number] Testing performed in the Endocrinology Department [address] , [address], [facility]. 11/13/2024 9:04 AM EST 11/13/2024 9:12 AM EST us Generic External Data Provider LAB BLOOD ORDERAB LES Final Result [facility] [address] [place] [phone] * (ABNORMAL) SARS-CoV-2 RNA, Influenza A/B, and RSV RNA, Ql NAAT (11/04/2024 2:59 PM EST) Only the most recent of2 resultswithin the time period is included. Influenza A PCR POSITIVE(A) Negative [facility] Influenza B PCR NEGATIVE Negative [facility] Resp Syncy Virus RNA Qual PCR NEGATIVE Negative [facility] SARS COV2 PCR NEGATIVE Negative [facility] Comment:All test results mus t [...] use by authorized laboratories.Testing performed on the [employer] GeneXpert utilizingreal-time RT-PCR.All SARS CoV2 and positive influenza A/B results arereported to [facility]. 11/04/2024 2:59 PM EST 11/04/2024 3:03 PM EST us Generic External Data Provider LAB MICROBIOLOGY - GENERAL ORDERABLES Final Result Performing Organization Address City/State/[facility] Co de Phone Number [facility] [address] [place] [phone] * CTA Chest PE Protocal (11/04/2024 1:16 PM EST) Anatomical Region Laterality Modality Body, Chest Computed Tomogra phy 11/04/2024 1:16 PM EST Narrative 11/04/2024 1:38 PM EST ? [facility] ?[address] ?[place] [address] ? CT Scan Report ? Signed ? Patient: Kwan,Tri ?MR#: [id number] ?? 63 ? : 1970 ?Acct:[id number] ? Age/Sex: 54 / F ?ADM Date: 11/04/24 ? Loc: HO.ED ? Attending Dr: ? Ordering Physician: Brenden Denton MD ?? Date of Service: 11/04/24 ?? Procedure(s): CT angio chest PE protocol ?? Accession Number(s): [id number] ? cc: Brenden Denton MD; Farhana Horn DO ? Report Number: ?? [id number]: Total DLP = ??278.00 mGy-cm ?? EXAMINATION: [...] DD/ 1316 ? TD/TT: 11/04/24 1316 ? Electronic Engraver: ? Procedure Note Juice, Image - 11/04/[address] [address] Scan Report Signed Patient: Tri BowensMR#: [id number] 63 : 1970Acct:[id number] Age/Sex: 54 / FADM Date: 11/04/24 Loc: HO.ED Attending Dr: Ordering Physician: Brenden Denton MD Date of Service: 11/04/24 Procedure(s): CT angio chest PE protocol Accession Number(s): [id number] cc: Brenden Denton MD; Farhana Horn DO Report Number: [id number]: Total DLP = 278.00 mGy-cm EXAMINATION: CT [...] 11/04/24 1334 DD/ 1316 TD/TT: 11/04/24 1316 Electronic Engraver: us [facility] External Provider IMG CT PROCEDURES Final Result * CT Abdomen Pelvis w/ Contrast (11/04/2024 11:43 AM EST) Only the most recent of2 resultswithin the time period is included. Anatomical Region Laterality Modality Body, Pelvis, Abdomen Computed T omography 11/04/2024 11:4 3 AM EST Narrative 11/04/2024 1:32 PM EST ? [facility] ?[address] ?[place] [address] ? CT Scan Report ? Signed ? Patient: Tri Bowens ?MR#: [id number] ?? 63 ? : 1970 ?Acct:[id number] ? Age/Sex: 54 / F ?ADM Date: 11/04/24 ? Loc: HO.ED ? Attending Dr: ? Ordering Physician: Brenden Denton MD ?? Date of Service: 11/04/24 ?? Procedure(s): CT abdomen pelvis w IV con ?? Accession Number(s): [id number] ? cc: Brenden Denton MD; Farhana Horn DO ? Report Number: ?? [id number]: Total DLP = ??462.00 mGy-cm ?? EXAMINATION: [...] DD/ 1143 ? TD/TT: 11/04/24 1316 ? Electronic Engraver: ? Procedure Note Wai Bose - 11/04/[address] [place] [address] [address] Scan Report Signed Patient: Wang Bowens#: [id number] 63 : 1970Acct:[id number] Age/Sex: 54 / FADM Date: 11/04/24 Loc: HO.ED Attending Dr: Ordering Physician: Brenden Denton MD Date of Service: 11/04/24 Procedure(s): CT abdomen pelvis w IV con Accession Number(s): [id number] cc: Brenden Denton MD; Farhana Horn DO Report Number: [id number]: Total DLP = 462.00 mGy-cm EXAMINATION: CT [...] by: Yariel Brooks MD 11/04/2024 01:[address] [facility] Dictated By: Yariel Buchanan MD Signed By: <Electronically signed by Yariel Garcia MDin OV> 11/04/24 1328 DD/ 1143 TD/TT: 11/04/24 1316 Electronic Engraver: [facility] External Provider IMG CT PROCEDURES Final Result * (ABNORMAL) POCT HGB A1C (11/04/2024 10:14 AM EST) Hemoglobin A1C 6.5(A) 4.0 - 6.0 % QC Media Lot # [id number] Lot# Expiration Date Blood 11/04/2024 10:1 4 AM EST Farhana Kochclaudio DO POINT OF CARE TEST ENTER/PAUL T ORDERABLES Final Result * POCT Glucose (11/04/2024 10:14 AM EST) Glucose Blood, POC 141 60 - 200 mg/dL QC Media Lot # [id number] Lot# Expiration Date 933 Blood Capillary blood specimen / Unknown 11/04/2024 10:14 AM EST Farhana Horn DO POINT OF CARE TEST ENTER/PAUL T ORDERABLES Final Result * (ABNORMAL) Urinalysis, Complete, with Reflex to Culture (10/29/2024 11:01 PM EST) Color Urine Dark Yellow [facility] Appearance Urine Cloudy [facility] PH 5.5 5.0 - 9.0 [facility] Glucose Urine UA Negative Negative mg/dL [facility] Urine Blood Negative Negative [facility] Specific [place] - Urine >=1.030(H) 1.005 - 1.025 [facility] Urine Protein 30 (1+)(A) Neg-Trace mg/dL [facility] Urine Ketones 15 Negative mg/dL [facility] Nitrite Urine Negative Negative [facility] Leukocyte Esterase Urine Trace(A) Negative [facility] RBC Urine 0-2 0 - 2 /HPF [facility] Urine WBC 0-5 0 - 5 /HPF [facility] Urine Squamous Epithelial Cell 3-5 0 - 2 /HPF [facility] Urine Bacteria 1+ None Seen [facility] Hyaline Casts, Urine 3-5 0 - 2 /LPF [facility] 10/29/2024 11:0 1 PM EST 10/29/2024 11:12 PM EST Narrative [facility] - 10/29/2024 11:24 PM EST Urine, Clean Catch us Generic External Data Provider LAB URINE ORDERAB LES Final Result [facility] [address] [place], [place] [phone] * (ABNORMAL) CBC auto differential (10/29/2024 12:06 PM EST) White Blood Count 7.4 4.8 - 10.8 X10*3/uL [facility] Red Blood Count 4.83 4.20 - 5.50 X10*6/uL [facility] Hemoglobin 13.3 12.0 - 16.0 g/dl [facility] Hematocrit 40.4 37.0 - 47.0 % [facility] Mean Corpuscular Volume 83.6 80.0 - 98.0 fL [facility] Mean Corpuscular Hemoglobin 27.5 27.0 - 33.0 pg [facility] Mean Corpuscular HGB Conc 32.9 31.0 - 35.0 g/dl [facility] Red Cell Distribution Width 13.4 11.0 - 16.0 % [facility] Platelet Count 302 160 - 400 X10*3/uL [facility] Mean Platelet Volume 8.0(L) 9.4 - 12.3 fL [facility] Neutrophils Percent Auto 45.2 45 - 73 % [facility] Imm Gran Pct Auto 0.1 0.0 - 0.4 % [facility] Lymphocytes Percent Auto 40.7(H) 20 - 40 % [facility] Monocytes Percent Auto 11.2(H) 2 - 11 % [facility] Eosinophils Percent Auto 2.4 0 - 4 % [facility] Basophils Percent Auto 0.4 0 - 2 % [facility] NRBC Pct Auto 0.0 0.0 - 0.2 /100WBC [facility] Neutrophils Absolute Auto 3.3 2.0 - 8.3 x10*3/uL [facility] Imm Gran Abs Auto 0.01 0.00 - 0.03 X10*3/uL [facility] Lymphocytes Absolute Auto 3.0 1.2 - 4.9 X10*3/uL [facility] Monocytes Absolute Auto 0.8 0.1 - 1.2 X10*3/uL [facility] Eosinophils Absolute Auto 0.2 0.0 - 0.4 X10*3/uL [facility] Basophils Absolute Auto 0.0 0.0 - 0.2 X10*3/uL [facility] NRBC Abs Auto 0.000 0.0 - 0.012 X10*3/uL [facility] 10/29/2024 12:0 6 PM EST 10/29/2024 12:09 PM EST us Generic External Data Provider LAB BLOOD ORDERAB LES Final Result Performing Organization Address City/State/[facility] Co de Phone Number [facility] [address] [place] [phone] * (ABNORMAL) Prothrombin Time-INR (10/29/2024 12:06 PM EST) Prothrombin Time 12.6(H) 10.9 - 12.4 SEC [facility] INTERNATIONAL NORM RATIO 1.1 0.9 - 1.1 [facility] Comment:INTERNATIONAL NORMAL IZED RATIO (INR) [...] ORDERAB LES Final Result Performing Organization Address [facility]/ZIP Co de Phone Number [facility] [address] [place] [phone] * Magnesium (10/29/2024 12:06 PM EST) Pathologist [facility] Magnesium 1.9 1.6 - 2.6 mg/dL [facility] 10/29/2024 12:0 6 PM EST 10/29/2024 12:09 PM EST [employer] External Data Provider LAB BLOOD ORDERAB LES Final Result Performing Organization Address [facility] Co de Phone Number [facility] [address] [place] [phone] * (ABNORMAL) Comprehensive Metabolic Panel (10/29/2024 12:06 PM EST) Sodium 140 135 - 145 mmol/L [facility] Potassium 3.7 3.3 - 5.1 mmol/L [facility] Chloride 112(H) 96 - 108 mmol/L [facility] Carbon Dioxide 21(L) 22 - 29 mmol/L [facility] Anion Gap 11(L) 12 - 20 [facility] Urea Nitrogen (BUN) 19(H) 9 - 16 mg/dL [facility] Creatinine, Serum 0.79 0.5 - 1.4 mg/dL [facility] Creatinine Clr Calc Pharmacy 68.7 [facility] Comment:Provided height and weight: 152.4 cm,68.6 kg.eGFR (calculated from the MDRD study equation) and eCrCl(calculated from the Cockcroft-Gault equation) are based ondifferent parameters and may not yield comparable results.If eCrCl result is absurd, please check patient'sheight/weight. Estimated Glomerular Filt Rate >60 [facility] Comment:Chronic Kidney Disea se: Estimated GFR < 60 mL/min/1.05h0Nzzbng Kidney Disease: Estimated GFR < 15 mL/min/1.73m2 Glucose 123(H) 60 - 115 mg/dL [facility] Calcium 9.3 8.4 - 10.2 mg/dL [facility] Bilirubin, Total 0.4 0.0 - 1.0 mg/dL [facility] Aspartate Amino Transferase 28 5 - 31 U/L [facility] Alanine Aminotransferase 41(H) 0 - 31 U/L [facility] Total Protein 8.2(H) 6.5 - 8.0 g/dL [facility] Albumin Level 4.2 3.5 - 5.0 g/dL [facility] Alkaline Phosphatase 140(H) 39 - 117 U/L [facility] 10/29/2024 12:0 6 PM EST 10/29/2024 12:09 PM EST us Generic External Data Provider LAB BLOOD ORDERAB LES Final Result Performing Organization Address City/State/[facility] Co de Phone Number [facility] [address] [place] [phone] * (ABNORMAL) HPV DNA, Low/High Risk (10/27/2024 9:07 AM EST) HPV High Risk Positive(A) Negative [facility] HPV Genotype 16 Negative Negative [facility] HPV Genotype 18 Negative Negative [facility] Comment:HPV testing performe d at [facility] (CLIA#[id number]), [address] [place] [address].Testing for HPV was performed using the [employer] Opargo0system. The presence of HPV in the female [...] Final Result Performing Organization Address City/State/[facility] Co de Phone Number [facility] [address] [place] [phone] * Pap Smear (10/27/2024 9:07 AM EST) 10/27/2024 9:07 AM EST 10/27/2024 2:15 PM EST Narrative [facility] - 11/02/2024 3:56 PM EST ----- ------- Name: Tri Bowens ? Age/Sex: 53/F ? : 1970 Unit#: [id number] ?? Attend Dr: Fabio Morin MD ?Re10/27/24 ?Status: DEP REF ? Location: HO.LNP ?Disch: ? ----- ------- SPEC : [id number] ? RECD: 10/27/24 ? STATUS: ??SOUT ? REQ NUM: [id number] ? ANITA: 10/27/24 ? SUBM DR: Fabio [...] Copies To: ?? Farhana Horn DO ?? [facility] ?? [address] ?? [place] [address] ?? [phone] ?? Fabio Morin MD ?? [facility] ?? [address] ?? [place] [address] ?? [phone] ----- ------- Signed (signature on file) CORI Ortez ([facility]) 11/02/24 1556 ? ----- ------- ? END OF REPORT ? us Generic External Data Provider LAB CYTOLOGY BROOKE GREY Final Result [facility] [address] [place] [phone] * OCT, Retina - OU - Both Eyes (10/22/2024 2:00 PM EST) Narrative Danette Harris, OD - 11/13/2024 11:40 AM EST OCT [...] treatment necessary at this time. Patient given Celia Grid. Will monitor in 1 year, sooner with changes in vision. us Danette Gilmoreadelfo OD OPHTH TOMOGRAPHY Final Result * BI Mammogram Screening Tomosynthesis Bilateral (09/23/2024 10:30 AM EST) Anatomical Region Laterality Modality Breast Bilateral Mammography 09/23/2024 10:3 0 AM EST Narrative 10/04/2024 9:14 AM EST ? [facility] ? [address] ?[place] [address] ? Mammography Report ? Signed ? Patient: Kwan,Tri ?MR#: [id number] ?? 63 ? : 1970 ?Acct:[id number] ? Age/Sex: 53 / F ?ADM Date: 09/23/24 ? Loc: HO.MAMMO ? Attending Dr: Farhana Horn DO ? Ordering Physician: Farhana Horn DO ?Results: 1N ?? egative ? Date of Service: 09/23/24 ?Follow Up: 1 Year From Orig ?? inal Mammogram ? Procedure(s): MM tomosynthesis screening BI ?? Accession Number(s): [id number] ? cc: Farhana Horn DO ? EXAMINATION: [...] DD/ 1030 ? TD/TT: 09/23/24 1041 ? Electronic Engraver: ? Procedure Note Juice, Image - 10/04/2024 [facility] [address] [place] [address] Mammography Report Signed Patient: Wang Bowens#: [id number] 63 : 1970Acct:[id number] Age/Sex: 53 / FADM Date: 09/23/24 Loc: MARIO Attending Dr: Farhana Horn DO Ordering Physician: Farhana Hornults: 1N egative Date of Service: 09/23/24Follow Up: 1 Year From Orig inal Mammogram Procedure(s): MM tomosynthesis screening BI Accession Number(s): [id number] cc: Farhana Horn DO EXAMINATION: MM SCREENING [...] 10/04/24 0911 DD/ 1030 TD/TT: 09/23/24 1041 Electronic Engraver: Farhana Horn DO IM BI PROCEDURES Edited Res ult - Final * Hematoxylin and Eosin Stain (09/04/2024 10:52 AM EST) 09/04/2024 10:5 2 AM EST 09/04/2024 11:33 AM EST [facility] - 09/11/2024 8:22 AM EST ----- ------- Name: Tri Bowens ? Age/Sex: 53/F ? : 1970 Unit#: [id number] ?? Attend Dr: Nani Bonner MD ?Re09/04/24 ?Status: DEP SDC ? Location: HO.SSS ?Disch: ? ----- ------- SPEC : [id number] ? RECD: 09/04/24-1132 ? STATUS: ??SOUT ? REQ NUM: [id number] ? ANITA: 09/04/24-1052 ? SUBM DR: Nani Bonner MD ? ENTERED: ??09/04/24-1150 ?SP TYPE: Surgical ? OTHR DR: Farhana Horn DO ? ORDERED: ??HE Stain/9, Gross Micro L4/3, IHC, H. pylori ?Addendum Addendum ??1 ?Entered: 09/11/24 Immunostain for H. pylori on A is negative. ?? Control stains appropriately. Addendum Signed (signature on file) Deb Moi 09/11/24 0822 ? ----- ------- ? Diagnosis ?? A. [...] ? Age/Sex: 53/F ? : 1970 Unit#: [id number] ?? Attend Dr: Nani Bonner MD ?Re09/04/24 ?Status: DEP SDC ? Location: HO.SSS ?Disch: ? ----- ------- SPEC : [id number] ? RECD: 09/04/24-3 ? STATUS: ??SOUT ? REQ NUM: [id number] ? ANITA: 09/04/24-1052 ? SUBM DR: Nani [...] in toto in a cassette labeled [facility] Special studies ordered and performed: Immunostain for H. pylori on A1. Copies To: ?? Farhana Horn DO ?? [facility] ?? [address] [facility] ?? [place] [address] ?? [phone] ?? Nani Bonner MD ?? [facility] ?? [address] ?? [place] [address] ?? [phone] ?? [email or web address] ----- ------- Signed (signature on file) Deb Prater 09/07/24 1557 ? ----- ------- ? END OF REPORT ? us Generic External Data Provider LAB BLOOD ORDERAB LES Final Result Performing Organization Address [facility] Co de Phone Number [facility] [address] [place] [phone] * Glucose, Whole Blood (09/04/2024 10:10 AM EST) Glucose, Whole Blood 107 60 - 115 mg/dL [facility] Comment:METER #: [id number] 09/04/2024 10:1 0 AM EST 09/04/2024 10:18 AM EST us Generic External Data Provider LAB BLOOD ORDERAB LES Final Result Performing Organization Address [facility] Phone Number [facility] [address] [place] [phone] * Albumin, Random Urine W/Creatinine (07/26/2023 12:26 PM EST) Creatinine, Urine 182.16 mg/dL [facility] Microalbumin Urine 14.0 mg/L [facility] Microalbum Creatinine Ratio Ur 7.6 <30 ug/mg cr [facility] Comment:Albumin/Creatinine R atio Reference Ranges: Normal: < 30 ug/mg creatinine Microalbuminuria: 30 - 300 ug/mg creatinineClinical Albuminuria: > 300 ug/mg creatinine 07/26/2023 12:2 6 PM EST 07/26/2023 1:28 PM EST us Farhana Horn DO LAB URINE ORDERABLES Final R esult Performing Organization Address [facility] de Phone Number [facility] [address] [place] [phone] * (ABNORMAL) Lipid Panel, Standard (07/26/2023 12:23 PM EST) Triglycerides 132 <150 mg/dL [facility] Comment:Desirable Triglyceri de: less than 150 mg/dLBorderline High Triglyceride 150-199 mg/dLHigh Triglyceride: 200-499 mg/dLVery High Triglyceride: greater than or equal to 5OO mg/dL Cholesterol 150 <200 mg/dL [facility] Comment:Desirable Cholestero l: less than 200 mg/dLBorderline High Cholesterol: 200-239 mg/dLHigh Cholesterol: greater than 239 mg/dL LDL Cholesterol Calculated 85 <100 mg/dL [facility] Comment:Desirable LDL: less than 100 mg/dLNear Optimal/Above Optimal LDL: 110- 129 mg/dLBorderline High LDL: 130-159 mg/dLHigh LDL: 160-189 mg/dLVery High LDL: greater than or equal to 190 mg/dL HDL Cholesterol 39(L) >40 mg/dL [facility] Comment:Desirable HDL: great er than 40 mg/dL Note: This HDL assay may give artificially low results in patients with liver disease. Blood Venous blood specimen / Unknown 07/26/2023 12:23 PM EST 07/26/2023 1:26 PM EST us Farhana Horn DO LAB BLOOD ORDERABLES Final R esult [facility] [address] [place] [phone] * HEPATITIS C AB W/REFL TO [...] a test for HCV RNA (test code 68662) is suggested. ?? For additional information please refer to http://education.Heliospect[employer]/faq/PMU29e9 (This link is being provided for informational/ educational purposes only.) ?? 07/09/2022 8:24 AM EDT Farhana Horn DO HISTORICAL/NON ORDERABLE LAB S Final Result Performing Organization Address [facility] Co de Phone Number [facility] [...] ? For additional information please refer to http://education.Central [employer]/faq/[id number] (This link is being provided for informational/ educational purposes only.) ? The performance of this assay has not been clinically validated in patients less than 2 years old. ?? 07/09/2022 8:24 AM EDT Farhana Horn DO LAB BLOOD ORDERABLES Final R esult Performing Organization Address [facility] Co de Phone Number CONVERTED LEGACY LABS * Hm Colonoscopy (01/27/2019 8:43 AM EDT) Historical Provider HEALTH MAINTENANCE Final Result from Last 3 Months or Most Recently Relevant to Health Maintenance Insurance [facility] C3 * Guarantor: Tri Bowens I Account Type Relation to Patient Date of Phone Billing Address Personal/Family Self [address] Care Teams Relief Master Relationship Specialty Start Date End Date Farhana Horn DO [address] [place] [address] PCP - General Family Medicine 09/09/18
--- OUTSIDE RECORDS SUMMARY | 2024-12-02 10:38 | XMS_ITS | Encounter Summary ---
Author Organization [employer] Address [address] [place] [address] [address] [place] [address] Care Team Providers Care Vp Security Name Role Phone Farhana Horn DO Primary Care Provider + [phone] Reason for Visit * Reason Onset Date Comments Care Coordination 11/09/2024 C3CM initial a ssessment/ enrollment Encounter Details Date Type Department Care Team ([facility] st Contact Info) Description 11/09/2024 Telephone [facility] MED & PEDS [address] [place] [address] Farhana Horn DO [address] [facility] [place] [address] Care Coordination (C3 initial assessment/ enrollment) Social [...] 1:02 PM EST Pt is requesting for [facility] referral for depression * Telephone Encounter - [...] month 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 Pt states she owns on her utilities. [...] to her upcoming appointment so that the front office spec can review it. Pt however reports compliant [...] understanding, and able to repeat back to report writer. A follow up call will be [...] Description 01/29/2025 10:15 AM EDT Office Visit [facility] MEDICINE [address] [place] [address] Farhana Horn DO [address] [place] [address] documented as of this encounter Visit Diagnoses Not on filedocumented in this encounter Additional Health Concerns Assessment Noted Time PHQ-9 Depression Total Score: 4 12/09/19 24 10:18 AM EDT documented as of this encounter Care Teams Vp Security Relationship Specialty Start Date End Date Farhana Horn DO [address] [place] [address] PCP - General Family Medicine 09/09/18 documented as of this encounter
--- OUTSIDE RECORDS SUMMARY | 2024-12-02 10:39 | XMS_ITS | Encounter Summary ---
Author Organization [employer] Address [address] [place] [address] 7t [place] [address] Care Team Providers Care Astronautical Engineer Name Role Phone LizFarhana key Primary Care Provider [phone] Encounter Details Date Type Department Care Team [...] Description 01/29/2025 10:15 AM EDT Office Visit [facility] MED[facility]INE [address] [place] [address] Farhana Horn DO [address] [place] [address] documented as of this encounter Procedures Procedure Name Priority Date/Time Associated Diagnosis Comments GLUCOSE, WHOLE BLOOD Routine 11/13/2024 9:04 AM EST documented in this encounter Results * (ABNORMAL) Glucose, Whole Blood (11/13/2024 9:04 AM EST) Glucose, Whole Blood 165(H) 60 - 115 mg/dL [facility] Comment:METER #: [id number] Testing performed in the Endocrinology Department [address], [address], [facility]. 11/13/2024 9:04 AM EST 11/13/2024 9:12 AM EST us Generic External Data Provider LAB BLOOD ORDERAB LES Final Result [facility] [address] [place] [address] [phone] documented in this encounter Visit Diagnoses Not on filedocumented in this encounter Additional Health Concerns Assessment Noted Time PHQ-9 Depression Total Score: 4 12/09/19 24 10:18 AM EDT documented as of this encounter Care Teams Astronautical Engineer Relationship Specialty Start Date End Date Farhana Horn DO [address] [place] [address] PCP - General Family Medicine 09/09/18 documented as of this encounter
--- OUTSIDE RECORDS SUMMARY | 2024-12-02 10:39 | XMS_ITS | Encounter Summary ---
Author Organization [facility] [facility] Address [address] [place] [address] [place], [place] [address] Care Team Providers Care Lens Blank Gauger Name Role Phone Farhana Horn DO Primary Care Provider [phone] Encounter Details Date Type Department Care Team (Late st Contact Info) Description 09/12/2022 Orders Only [facility] MEDICINE [address] [place] [address] Farhana Horn DO [address] [place] [address] Social History Tobacco Use Types Packs/Day Years [...] Visit [facility] MEDICINE [address] [place] [address] Farhana Horn DO [address] [place] [address] documented as of this encounter Visit Diagnoses Not on filedocumented in this encounter Care Teams Lens Blank Gauger Relationship Specialty Start Date End Date Farhana Horn DO [address] [place] [address] PCP - General Family Medicine 09/09/18 documented as of this encounter
--- OUTSIDE RECORDS SUMMARY | 2024-12-02 10:39 | XMS_ITS | Encounter Summary ---
Author Organization [employer] Address [address] [place] [address] 7t [place] [address] Care Team Providers Care Air Route Traffic Controller Name Role Phone Farhana Horn DO Primary Care Provider + [phone] Encounter Details Date Type Department Care Team ([facility] st Contact Info) Description 11/04/2024 10:00 AM EST Office Visit [facility] MEDICINE [address] [place] [address] Farhana Horn DO [address] [place] [address] Generalized abdominal pain (Primary Dx); Cough with hemoptysis; Generalized weakness; Type 2 diabetes mellitus without complication, without long-term current use of insulin ([facility]) Social History Tobacco Use Types Packs/Day Years [...] Description 01/29/2025 10:15 AM EDT Office Visit [facility] MED[facility]INE [address] [place] [address] Farhana Horn DO [address] [place] [address] documented as of this encounter Procedures Procedure Name Priority Date/Time Associated Diagnosis Comments POCT GLYCATED HEMOGLOBIN, TOTAL Routine 11/04/2024 10:14 AM EST Type 2 diabetes mellitus without complication, without long-term current use of insulin ([facility]) POCT GLUCOSE Routine 11/04/2024 10:14 AM EST Type 2 diabetes mellitus without complication, without long-term current use of insulin ([facility]) documented in this encounter Results * POCT Glucose (11/04/2024 10:14 AM EST) Glucose Blood, POC 141 60 - 200 mg/dL QC Media Lot # [id number] Lot# Expiration Date [id number] Blood Capillary blood specimen / Unknown 11/04/2024 10:14 AM EST Farhana Horn DO POINT OF CARE TEST ENTER/PAUL T ORDERABLES Final Result * (ABNORMAL) POCT HGB A1C (11/04/2024 10:14 AM EST) Hemoglobin A1C 6.5(A) 4.0 - 6.0 % QC Media Lot # [id number] Lot# Expiration Date ,989 Blood 11/04/2024 10:1 4 AM EST Farhana Horn DO POINT OF CARE TEST ENTER/PAUL T ORDERABLES Final Result documented in this encounter Visit Diagnoses Diagnosis Generalized abdominal pain- Primary Abdominal pain, generalized Cough with hemoptysis Generalized weakness Type 2 diabetes mellitus without complication, without long-term current use of insulin ([facility]) documented in this encounter Additional Health Concerns Assessment Noted Time PHQ-9 Depression Total Score: 4 12/09/19 24 10:18 AM EDT documented as of this encounter Care Teams Air Route Traffic Controller Relationship Specialty Start Date End Date Farhana Horn DO [address] [place] [address] PCP - General Family Medicine 09/09/18 documented as of this encounter
--- OUTSIDE RECORDS SUMMARY | 2024-12-02 10:39 | XMS_ITS | Encounter Summary ---
Author Organization [facility] Address [address] [facility] 7t [place] [address] Care Team Providers Care Assistant Office Manager Name Role Phone LizFarhana key Primary Care Provider [phone] Encounter Details Date Type Department Care Team ([facility] st Contact Info) Description 11/20/2024 Population Health Risk Score [facility] (C3) Department [address] [id number] Provider, Population Health Generic Social History Tobacco [...] Description 01/29/2025 10:15 AM EDT Office Visit [facility] MEDICINE [address] [place] [address] Farhana Horn DO [address] [place] [address] documented as of this encounter Visit Diagnoses Not on filedocumented in this encounter Additional Health Concerns Assessment Noted Time PHQ-9 Depression Total Score: 4 12/09/19 24 10:18 AM EDT documented as of this encounter Care Teams Assistant Office Manager Relationship Specialty Start Date End Date Farhana Horn DO [address] [place] [address] PCP - General Family Medicine 09/09/18 documented as of this encounter
== END 2024-12-02 10:28 | disposition home or self-care (01) ==
LOC: HO.HWS 09:33
PROVIDERS: PCP Family Medicine; Visit Provider Obstetrics & Gynecology
DX: R87.810 Cervical high risk human papillomavirus (HPV) DNA test positive (principal)
CPT/HCPCS: 57454

== ENCOUNTER 2025-01-05 11:40 | Outpatient (AMB) | payer MEDICAID, SELFPAY ==
--- NOTE | 2025-01-05 12:22 | MHC.OFFVIS ---
Intake Visit Reasons: Colpo results Mental Health Practitioner Required: Yes Mental Health Practitioner Language: Public Safety Director Services: Mental Health Practitioner Present (in person) Mental Health Practitioner Name: Jenny HARPREET Mayer Information Interpreted: non-clinical & clinical Lance Crewmember/Mlrs Sergeant: Lance Crewmember/Mlrs Sergeant Present (HARPREET Kelsey) Accompanied by: Self / Same As Patient Allergies Penicillins [PENICILLINS] Allergy (Severe, Verified 01/05/25 12:23) RASH dulaglutide [From Trulicity] Adverse Reaction (Mild, Verified 01/05/25 12:23) Abdominal Pain HPI Comments Details: Presenting post colpo for follow-up. The patient is doing well with no complaints. The pathology showed the following: A. Endocervix, curettage: Minute fragment of stroma with ectatic vessels and no epithelium; insufficient for endocervical evaluation. B. Cervix, 4:00, biopsy: Squamous mucosa with inflammation and reactive changes; negative for dysplasia; no endocervical glandular component present. C. Cervix, 11:00, biopsy: Squamous mucosa with inflammation and reactive changes; negative for dysplasia; no endocervical glandular component present. Comment: The patient's previous negative Pap test ([id number]) concurs with the current biopsy [facility] Medical History Type 2 diabetes mellitus Diverticulosis Renal calculi Gastric varices Migraine headache Depression GERD (gastroesophageal reflux disease) Diabetes mellitus Adrenal nodule IBS (irritable bowel syndrome) HTN (hypertension) Hyperlipemia Surgical History History of surgery History of esophagogastroduodenoscopy (EGD) Hx of colonoscopy Hx of tubal ligation Hx of discectomy Family History Father Hx of type 1 diabetes mellitus History of epilepsy Mother Family history of high blood pressure Hx of cancer of uterus Social History Household Members Other:: daughter Housing: House Alcohol intake: never Patient Tobacco Use Status: Never used Tobacco Current occupational status: employed 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 Sexual orientation: Straight/Heterosexual Gender identity: Female Female Reproductive History Menstrual Age of Menarche: 10 Review of Systems Const All systems reviewed & are unremarkable except as noted in HPI and below Reports as per HPI and Reports no additional complaints GI Reports no additional complaints Reports no additional complaints Assessment & Plan Assessment & Plan (1) HPV in female: Code(s): B97.7 - Papillomavirus as the cause of diseases classified elsewhere Category: Medical Plan: Discussed with the patient the pathology results of the colposcopy biopsies & endocervical curettage. Discussed with the patient the sensitivity specificity, positive and negative predictive value in detecting cervical cancer in addition discussed the regression, persistence and progression rates. Recommended co-testing in 12 months, if cytology and or HPV are abnormal will proceed was colposcopy biopsy and endocervical curettage. Instructions given to the patient to schedule a co test appointment in 1 year. All questions answered the patient verbalized understanding. Coding Level of Care Code Est Pt Level 3 (94429) Diagnoses HPV in female B97.7
--- OUTSIDE RECORDS SUMMARY | 2025-01-05 13:50 | XMS_ITS | Encounter Summary ---
Author Organization [employer] Address [address] [place] [address] [address] [place] [address] Care Team Providers Care Supervisor Accounting Clerks Name Role Phone Farhana Horn DO Primary Care Provider + [phone] Reason for Visit * Reason Comments Med Refill Encounter Details Date Type Department Care Team (Late Contact Info) Description 12/13/2022 Refill [facility] MED & PEDS [address] [place] [address] [facility] [address] [place] [address] Hyperlipidemia, unspecified hyperlipidemia type Social History Tobacco [...] Description 01/29/2025 10:15 AM EDT Office Visit [facility] [address] [place] [address] Farhana Horn DO [address] [place] [address] documented as of this encounter Visit Diagnoses Diagnosis Hyperlipidemia, unspecified hyperlipidemia type documented in this encounter Care Teams Supervisor Accounting Clerks Relationship Specialty Start Date End Date Farhana Horn DO [address] [place] [address] PCP - General Family Medicine 09/09/18 documented as of this encounter
--- OUTSIDE RECORDS SUMMARY | 2025-01-05 13:50 | XMS_ITS | Encounter Summary ---
Author Organization [employer] Address [address] [facility] 7t [place] [address] Care Team Providers Care Pump Installation And Servicer Name Role Phone LizFarhana key Primary Care Provider + [phone] Encounter Details Date Type Department Care Team (Late st Contact Info) Description 12/07/2024 Orders Only [facility] MED & PEDS [address] [place] [address] Carmelita Kruse Social History Tobacco Use Types Packs/Day Years [...] Description 01/29/2025 10:15 AM EDT Office Visit [facility] MEDICINE [address] [place] [address] Farhana Horn DO [address] [place] [address] documented as of this encounter Procedures Procedure Name Priority Date/Time Associated Diagnosis Comments COLPOSCOPY Routine 12/02/2024 12:00 AM EDT documented in this encounter Results * Colposcopy (12/02/2024 12:00 AM EDT) us Historical Provider MD IN CLINIC/BEDSIDE ORDERAB LES Final Result [facility] [address] [place] [address] [phone] documented in this encounter Visit Diagnoses Not on filedocumented in this encounter Additional Health Concerns Assessment Noted Time PHQ-9 Depression Total Score: 13 025 10:22 AM EDT documented as of this encounter Care Teams Pump Installation And Servicer Relationship Specialty Start Date End Date Farhana Horn DO [address] [place] [address] PCP - General Family Medicine 09/09/18 documented as of this encounter
--- OUTSIDE RECORDS SUMMARY | 2025-01-05 13:50 | XMS_ITS | Encounter Summary ---
Author Organization [employer] Address [address] [place] [address] 7t [place] [address] Care Team Providers Care Grader Tender Name Role Phone Farhana Horn DO Primary Care Provider + [phone] Reason for Visit * Reason Comments Care Coordination C3/CM F/U Encounter Details Date Type Department Care Team (Latest Contact Info) Description 01/01/2025 Patient Outreach [facility] MEDICINE [address] [place] [address] Farhana Horn DO [address] [place] [address] Care Coordination (C3/CM F/U) Social History Tobacco Use Types Packs/Day Years [...] encounter Progress Notes * Tita Saunders - 01/01/2025 2:26 PM EDT CHW Tita Saunders placed outbound call to patient to follow up on SDOH needs. Patient's name, and address confirmed. Patient states is doing well. No further questions or concerns. CHW reinforced direct contact information or CM for any additional questions or concerns and extended clinic hours on Mondays and Wednesdays, and Walk-In Urgent Care Located in [facility]. Patient provided with after-hours line for [facility], , which offer night time triage service and option to transfer to car inspection and repair manager provider if needed. Patient verbalizes understanding, and able to repeat back to news writer. A follow up call willbe placed within 10 days, patient agrees with plan. documented in this encounter Plan of Treatment Upcoming Encounters Date Type Department Care Team (Late st Contact Info) Description 01/29/2025 10:15 AM EDT Office Visit [facility] MEDICINE [address] [place] [address] Farhana Horn, [address] [place] [address] documented as of this encounter Visit Diagnoses Not on filedocumented in this encounter Additional Health Concerns Assessment Noted Time PHQ-9 Depression Total Score: 13 11/25/2 025 10:22 AM EDT documented as of this encounter Care Teams Grader Tender Relationship Specialty Start Date End Date Farhana Horn DO [address] [place] [address] PCP - General Family Medicine 09/09/18 documented as of this encounter
--- OUTSIDE RECORDS SUMMARY | 2025-01-05 13:50 | XMS_ITS | Encounter Summary ---
Author Organization [facility] [facility] Address [address] [place] [address] [address] [place] [address] Care Team Providers Care Collector Of Port Name Role Phone Farhana Horn DO Primary Care Provider [phone] Encounter Details Date Type Department Care Team (Latest Contact Info) Description 10/16/2019 Abstract [facility] CONVERSIONS Dental, Provider, DDS Social History [...] 10:15 AM EDT Office Visit [facility] MEDICINE [address] [place] [address] Farhana Horn DO [address] [place] [address] documented as of this encounter Visit Diagnoses Not on filedocumented in this encounter Care Teams Collector Of Port Relationship Specialty Start Date End Date Farhana Horn DO [address] [place] [address] PCP - General Family Medicine 09/09/18 documented as of this encounter
--- OUTSIDE RECORDS SUMMARY | 2025-01-05 13:50 | XMS_ITS | Encounter Summary ---
Author Organization [employer] Address [address] [facility] 7t [place] [address] Care Team Providers Care Singer Songwriter Name Role Phone Farhana Horn DO Primary Care Provider + [phone] Encounter Details Date Type Department Care Team ([facility] st Contact Info) Description 08/08/2023 Telephone [facility] MEDICINE [address] [place] [address] Farhana Horn DO [address] [place] [address] Social History Tobacco Use Types Packs/Day Years [...] [facility] [address] [place] [address] Farhana Horn DO [address] [place] [address] documented as of this encounter Visit Diagnoses Not on filedocumented in this encounter Additional Health Concerns Assessment Noted Time PHQ-9 Depression Total Score: 24 023 11:05 AM EDT documented as of this encounter Care Teams Singer Songwriter Relationship Specialty Start Date End Date Farhana Horn DO [address] [place] [address] PCP - General Family Medicine 09/09/18 documented as of this encounter
--- OUTSIDE RECORDS SUMMARY | 2025-01-05 13:50 | XMS_ITS | Encounter Summary ---
Author Organization [employer] Address [address] [facility] 7t [place] [address] Care Team Providers Care Chef De Froid Name Role Phone KoryFarhana Primary Care Provider + [phone] Encounter Details Date Type Department Care Team (Late st Contact Info) Description 12/20/2023 Orders Only [facility] MEDICINE [address] [place] [address] ProviderPantera MD Social History Tobacco Use Types [...] the past 12 months, has t he [employer], gas, oil or water company threatened to [...] Description 01/29/2025 10:15 AM EDT Office Visit [facility] MEDICINE [address] [place] [address] Farhana Horn DO [address] [place] [address] documented as of this encounter Procedures Procedure [...] documented as of this encounter Care Teams Chef De Froid Relationship Specialty Start Date End Date Farhana Horn DO [address] [place] [address] PCP - General Family Medicine 09/09/18 documented as of this encounter
--- OUTSIDE RECORDS SUMMARY | 2025-01-05 13:50 | XMS_ITS | Encounter Summary ---
Author Organization [employer] [facility] Address [address] [place] [address] [address], [place] [address] Care Team Providers Care Senior Software Systems Engineer Name Role Phone Farhana Horn DO Primary Care Provider [phone] Encounter Details Date Type Department Care Team (Late st Contact Info) Description 09/12/2022 Orders Only [facility] MEDICINE [address] [place] [address] Farhana Horn DO [address] [place] [address] Social History Tobacco Use Types Packs/Day Years [...] 10:15 AM EDT Office Visit [facility] MEDICINE [address] [place] [address] Farhana Horn DO [address] [place] [address] documented as of this encounter Visit Diagnoses Not on filedocumented in this encounter Care Teams Senior Software Systems Engineer Relationship Specialty Start Date End Date Farhana Horn DO [address] [place] [address] PCP - General Family Medicine 09/09/18 documented as of this encounter
--- OUTSIDE RECORDS SUMMARY | 2025-01-05 13:50 | XMS_ITS | Clinical Summary ---
Author Organization [employer] Address [address] [place] [address] [address] [place] [address] Care Team Providers Care Keller Machine Operator Name Role Phone Farhana Horn Primary Care Provider [phone] Allergies Active Allergy Reactions Criticality Noted Date [...] 2 diabetes mellitus without complication, unspecified whether long-term insulin use (CMS/HCC) Take 1 tablet by mouth in the evening with meals 90 tablet 1 024 Active Calcium Carb-Cholecalcifer ol 600-10 MG-MCG tabletIndications: Osteopenia, unspecified location Take 1 tablet by mouth 2 times daily. 60 tablet 11 024 Active magnesium oxide (Mag-Ox) 400 MG tablet Take 1 tablet (400 mg) by mouth Once per day. 30 tablet 11 024 04/14 Active baclofen (Lioresal) 20 MG tablet take 1 tablet by oral route 3 times every day as needed for MM SPASM/PAIN 60 tablet 5 024 Active Trulicity 0.75 MG/0.5ML solution auto-injector [...] 025 Active cholecalciferol (Vitamin D-3) 50 MCG (2000 UT) capsule Take 1 capsule (50 mcg) by mouth Once per day. 30 capsule 11 025 11/24 Active atorvastatin (Lipitor) 20 MG tabletIndications: Hyperlipidemia, unspecified hyperlipidemia type TAKE ONE TABLET BY MOUTH DAILY AT BEDTIME 90 tablet 1 Active polycarbophil (FiberCon) 625 MG tablet Take 1 tablet (625 mg) by mouth 2 times daily. 180 tablet 1 024 12/08 Saccharomyces boulardii (probiotic) 250 MG capsule Take 1 capsule (250 mg) by mouth in the morning. 90 capsule 1 024 12/08 atorvastatin (Lipitor) 20 MG tabletIndications: Hyperlipidemia, unspecified hyperlipidemia type TAKE ONE TABLET BY MOUTH AT BEDTIME 90 tablet 1 024 12/29 Discontinued Active Problems Problem Noted Date Diagnosed [...] completed the intake process with N at [facility] after today's session. 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 Date Type Department Care Team Description 01/01/2025 Patient Outreach [facility]IC[facility] [address] [place] [address] Farhana Horn DO Care Coordination (C3/CM F/U) 12/25/2024 Refill [facility] [address] [place] [address] Farhana Horn DO Hyperlipidemia, unspecified hyperlipidemia type 12/17/2024 Patient Outreach [facility] [address] [place] [address] Farhana Horn DO Care Coordination (C3/CM F/U) 12/07/2024 Orders Only [facility] [address] [place] [address] Carmelita Kruse 12/04/2024 Patient Outreach [facility] [address] [place] [address] Farhana Horn DO Care Coordination (C3/CM follow up) 12/02/2024 11:15 AM EDT Office Visit [facility] OPTOMET[facility] [address] [place] [address] Steven, Danette, OD Presbyopia (Primary Dx) 12/02/2024 Orders Only GENERIC EXTERNAL DATA DEPARTMENT Provider, Generic External Data 12/02/2024 Travel 11/23/2024 Patient Outreach [facility] [address] [place] [address] Farhana Horn DO Care Coordination (Outreach) 11/23/[address] [facility] [address] [place] [address] Farhana Horn DO 11/20/2024 Population Health Risk Score [facility] ([facility]) Department [address] [place] [phone] Provider, Population Health Generic 11/13/2024 Orders Only GENERIC EXTERNAL DATA DEPARTMENT Provider, Generic External Data 11/09/[address] [facility] [address] [place] [address] Farhana Horn DO Care Coordination (C3 initial assessment/ enrollment) 11/05/2024 Patient Outreach [facility] [address] [place] [address] Farhana Horn DO Care Coordination (Outreach) 11/04/2024 10:00 AM EST Office Visit [facility] [address] [place] [address] Farhana Horn DO Generalized abdominal pain (Primary Dx); Cough with hemoptysis; Generalized weakness; Type 2 diabetes mellitus without complication, without long-term current use of insulin ([facility]) 11/04/2024 Orders Only [facility] External Provider, [facility] 11/04/2024 Travel 10/29/2024 Orders Only GENERIC EXTERNAL DATA DEPARTMENT Provider, Generic External Data 10/29/2024 Telephone [facility] [address] [place] [address] Farhana Horn DO Nurse Triage 10/29/2024 Telephone [facility] [address] [place] [address] Farhana Horn DO Appointment Request 10/27/2024 Orders Only GENERIC EXTERNAL DATA DEPARTMENT Provider, Generic External Data 10/23/2024 Refill [facility] [address] [place] [address] Farhana Horn DO Seasonal allergic rhinitis, unspecified trigger 10/22/2024 2:00 PM EST Office Visit [facility] OPT[facility] [address] [place] [address] Steven, Danette, OD Diabetes type 2, no ocular involvement ([facility]) (Primary Dx); Headache, unspecified headache type; Vitelliform lesion of macula; Combined forms of age-related cataract of both eyes; Meibomian gland disease, unspecified laterality; Presbyopia 10/22/2024 Travel 10/21/2024 Travel 10/15/2024 Telephone [facility] [address] [place] [address] Sudha Doss [place] Recall Letter (Recall Letter sent 10/15/24.) from Last 3 Months Immunizations Name Administration [...] Description 01/29/2025 10:15 AM EDT Office Visit [facility] [address] [place], [place] [phone] Farhana Horn DO [address] [place] [address] Health Maintenance Due Date Last Done Comments [...] 07/26/2024 07/26/2023, 06/11, 01/25/2021 Diabetes: Hemoglobin A1C 05/04/2025 025, 04/14/2024, 12/09/2023, Additional history exists Mammogram 09/23/2025 09/23/2024, 10/2023, 09/07/2022, Additional history exists Alcohol/Substance Use Screening 11/04/2025 11/04/2024 SDOH Screening 11/05/2025 11/05/2024 Tobacco Screening 11/10/2025 11/10/2024 Depression Screening 11/25/2025 11/25/2024, 11/26/19 Cervical Cancer Screening 12/02/2025 HPV/Cotest 12/02/2025 10/27/2024, 07/11, 08/01/2020, Additional history exists Pap Smear 12/02/2025 10/27/2024 Eye Exam 10/22/2026 10/22/2024, 10/10, 10/22/2024, Additional history exists DTaP/Tdap/Td Vaccines (4 - Td or Tdap) 02/26/2031 02/26/2021, 07/12/2016, 01/05/2010 RSV Patients and Patients Aged 60 years or older (1 - 1-dose 75+ series) 2043 Zoster Vaccines Completed 11/16/2021, 09/12/2021 HIV Screening Completed 07/09/2022, 07/11, 01/25/2021 Hepatitis C Screening Completed 07/09/2022 , 08/02/2021, 01/25/2021 Pneumococcal Vaccine: 50+ Years Completed 12/09/2023 Colposcopy Completed 12/02/2024 HIB Vaccines Aged Out No longer eligi [...] Procedure Name Priority Date/Time Associated Diagnosis Comments HEMATOXYLIN AND EOSIN STAIN Routine 12/02/2024 10:33 AM EDT COLPOSCOPY Routine 12/02/2024 12:00 AM EDT GLUCOSE, WHOLE BLOOD Routine 11/13/2024 9:04 AM EST SARS COV2/INFLUENZA A/B AND RSV RNA QL NAAT Routine 11/04/2024 2:59 PM EST CTA CHEST PE PROTOCAL Routine 11/04/2024 1:[address] ABDOMEN PELVIS W CONTRAST Routine 11/04/2024 11:43 AM EST POCT GLUCOSE Routine 11/04/2024 10:14 AM EST Type 2 diabetes mellitus without complication, without long-term current use of insulin ([facility]) POCT GLYCATED HEMOGLOBIN, TOTAL Routine 11/04/2024 10:14 AM EST Type 2 diabetes mellitus without complication, without long-term current use of insulin ([facility]) CT ABDOMEN PELVIS W CONTRAST Routine 10/29/2024 [...] TOMOSYNTHESIS BILATERAL Routine 09/23/2024 10:30 AM EST ALBUMIN, RANDOM URINE W/CREATININE Routine [...] Recently Relevant to Health Maintenance Results * Hematoxylin and Eosin Stain (12/02/2024 10:33 AM EDT) 12/02/2024 10:3 3 AM EDT 12/02/2024 3:10 PM EDT [facility] - 12/03/2024 4:42 PM EDT ----- ------- Name: Tri Bowens ? Age/Sex: 54/F ? : 1970 Unit#: [id number] ?? Attend Dr: Fabio Morin MD ?Re12/02/24 ?Status: DEP REF ? Location: HO.LNP ?Disch: ? ----- ------- SPEC : [id number] ? RECD: 12/02/24-1510 ? STATUS: ??SOUT ? REQ NUM: [id number] ? ANITA: 12/02/24-1033 ? SUBM DR: Fabio Morin MD ? ENTERED: ??12/02/24-1520 ?SP TYPE: Surgical ? OTHR DR: Farhana Horn DO ? ORDERED: ??HE Stain/8, Gross Micro L4/3 ? Diagnosis ?? A. ??Endocervix, curettage: ??Minute fragment of stroma with ectatic vessels and no ?? epithelium; insufficient for endocervical evaluation. ? B. ??Cervix, 4:00, biopsy: ??Squamous mucosa with inflammation and reactive changes; ?? negative for dysplasia; no endocervical glandular component present. ? C. ??Cervix, 11:00, biopsy: ??Squamous mucosa with inflammation and reactive changes; ?? negative for dysplasia; no endocervical glandular component present. ? Comment: ??The patient's previous negative Pap test ([id number]) concurs with the current ?? biopsy. ?Clinical History HPV+ ?Microscopic Description Microscopic sections reviewed. ? Material Received ?? A. ECC ?? B. Cx bx 4 ?? C. Cx bx 11 ? Gross Description Received in three parts. Part A: ??Received in formalin labeled ?ECC? is a 0.6 x 0.4 x 0.25 cm aggregate of cloudy pedroza-white mucus, submitted in toto in a cassette labeled A. Part B: ??Received in formalin labeled ?cx bx 4? is a 0.3 cm thin and delicate pedroza-white rectangular fragment of mucosa, submitted in toto in a cassette labeled B. Part C: ??Received in formalin labeled ?cx bx 11? is a 0.3 cm rubbery, wong-pink wedge-shaped fragment of mucosa, submitted in toto in a cassette labeled C. CEDS ? CONTINUED ON NEXT PAGE ----- ------- Name: Tri Bowens ? Age/Sex: 54/F ? : 1970 Unit#: [id number] ?? Attend Dr: Fabio Morin MD ?Re12/02/24 ?Status: DEP REF ? Location: HO.LNP ?Disch: ? ----- ------- SPEC : [id number] ? RECD: 12/02/24-1510 ? STATUS: ??SOUT ? REQ NUM: [id number] ? ANITA: 12/02/24-1033 ? SUBM DR: Fabio Morin MD ? ENTERED: ??12/02/24-1520 ?SP TYPE: Surgical ? OTHR DR: Farhana Horn DO ? ORDERED: ??HE Stain/8, Gross Micro L4/3 ? Copies To: ?? Farhana Horn DO ?? [facility] ?? [address] ?? [place] [address] ?? [phone] ?? Fabio Morin MD ?? [facility] ?? [address] ?? [place] [address] ?? [phone] ----- ------- Signed (signature on file) Deb Chester 12/03/241641 ? ----- ------- ? END OF REPORT ? us Generic External Data Provider LAB BLOOD ORDERAB LES Final Result Performing Organization Address [facility] Co de Phone Number [facility] [address] [place] [address] [phone] * Colposcopy (12/02/2024 12:00 AM EDT) us Historical Provider IN CLINIC/BEDSIDE ORDERAB LES Final Result Performing Organization Address [facility] de Phone Number [facility] [address] [place] [address] [phone] * (ABNORMAL) Glucose, Whole Blood (11/13/2024 9:04 AM EST) Glucose, Whole Blood 165(H) 60 - 115 mg/dL [facility] Comment:METER #: [id number] Testing performed in the Endocrinology Department [address] , [address], [place]. 11/13/2024 9:04 AM EST 11/13/2024 9:12 AM EST Generic External Data Provider LAB BLOOD ORDERAB LES Final Result Performing Organization Address [facility]/ZIP Co de Phone Number [facility] [address] [place] [phone] * (ABNORMAL) SARS-CoV-2 RNA, Influenza A/B, and RSV RNA, Ql NAAT (11/04/2024 2:59 PM EST) Only the most recent of2 resultswithin the time period is included. Pathologist [facility] Influenza A PCR POSITIVE(A) Negative [facility] Influenza B PCR NEGATIVE Negative [facility] Resp Syncy Virus RNA Qual PCR NEGATIVE Negative [facility] SARS COV2 PCR NEGATIVE Negative [facility] Comment:All test results mus t [...] use by authorized laboratories.Testing performed on the [employer] GeneXpert utilizingreal-time RT-PCR.All SARS CoV2 and positive influenza A/B results arereported to [facility]. 11/04/2024 2:59 PM EST 11/04/2024 3:03 PM EST us Generic External Data Provider LAB MICROBIOLOGY - GENERAL ORDERABLES Final Result Performing Organization Address City/[facility]/ZIP Co de Phone Number [facility] [address] [place], [place] [address], [place] [address] [phone] * CTA Chest PE Protocal (11/04/2024 1:16 PM EST) Anatomical Region Laterality Modality Body, Chest Computed Tomogra phy 11/04/2024 1:16 PM EST Narrative 11/04/2024 1:38 PM EST ? [facility] ?[address] ?[place] [address] ? CT Scan Report ? Signed ? Patient: Kwan,Tri ?MR#: [id number] ?? 63 ? : 1970 ?Acct:[id number] ? Age/Sex: 54 / F ?ADM Date: 11/04/24 ? Loc: HO.ED ? Attending Dr: ? Ordering Physician: Brenden Denton MD ?? Date of Service: 11/04/24 ?? Procedure(s): CT angio chest PE protocol ?? Accession Number(s): [id number] ? cc: Brenden Denton MD; Farhana Horn DO ? Report Number: ?? [id number]: Total DLP = ??278.00 mGy-cm ?? EXAMINATION: [...] ??Yariel Brooks MD ??11/04/2024 01:34 PM ?? [facility] ? Dictated By: ?Yariel Buchanan MD ? Signed By: ?<Electronically signed by Yariel Garcia MD in OV> ? 11/04/24 1334 ? DD/ 15 ? TD/TT: 11/04/241315 ? Tile Molder Hand: ? Procedure Note Juice, Wai - 11/04/[address] [place] [address] [address] Scan Report Signed Patient: Tri BowensMR#: [id number] 63 : 1970Acct:[id number] Age/Sex: 54 / FADM Date: 11/04/24 Loc: HO.ED Attending Dr: Ordering Physician: Brenden Denton MD Date of Service: 11/04/24 Procedure(s): CT angio chest PE protocol Accession Number(s): [id number] cc: Brenden Denton MD; Farhana Horn DO Report Number: [id number]: Total DLP = 278.00 mGy-cm EXAMINATION: CT [...] 11/04/24 1334 DD/ 1316 TD/TT: 11/04/24 1316 Tile Molder Hand: [facility] External Provider IMG CT PROCEDURES Final Result * CT Abdomen Pelvis w/ Contrast (11/04/2024 11:43 AM EST) Only the most recent of2 resultswithin the time period is included. Anatomical Region Laterality Modality Body, Pelvis, Abdomen Computed T omography 11/04/2024 11:4 3 AM EST Narrative 11/04/2024 1:32 PM EST ? [facility] ?[address] ?[place] [address] ? CT Scan Report ? Signed ? Patient: Kwan,Tri ?MR#: [id number] ?? 63 ? : 1970 ?Acct:[id number] ? Age/Sex: 54 / F ?ADM Date: 11/04/24 ? Loc: HO.ED ? Attending Dr: ? Ordering Physician: Brenden Denton MD ?? Date of Service: 11/04/24 ?? Procedure(s): CT abdomen pelvis w IV con ?? Accession Number(s): [id number] ? cc: Brenden Denton MD; Farhana Horn DO ? Report Number: ?? [id number]: Total DLP = ??462.00 mGy-cm ?? EXAMINATION: [...] DD/ 1143 ? TD/TT: 11/04/24 1316 ? Tile Molder Hand: ? Procedure Note Donotuseinterpreter, Image - 11/04/[address] [address] [address] Scan Report Signed Patient: Wang Bowens#: [id number] 63 : 1970Acct:[id number] Age/Sex: 54 / FADM Date: 11/04/24 Loc: HO.ED Attending Dr: Ordering Physician: Brenden Denton MD Date of Service: 11/04/24 Procedure(s): CT abdomen pelvis w IV con Accession Number(s): [id number] cc: Brenden Denton MD; Farhana Horn DO Report Number: [id number]: Total DLP = 462.00 mGy-cm EXAMINATION: CT [...] Yariel Brooks MD 11/04/2024 01:28 PM EST Dictated By: Yariel Buchanan MD Signed By: <Electronically signed by Yariel Garcia MDin OV> 11/04/24 1328 DD/ 1143 TD/TT: 11/04/24 1316 Tile Molder Hand: [facility] External Provider IMG CT PROCEDURES Final Result * (ABNORMAL) POCT HGB A1C (11/04/2024 10:14 AM EST) Hemoglobin A1C 6.5(A) 4.0 - 6.0 % QC Media Lot # [id number] Lot# Expiration Date [id number] Blood 11/04/2024 10:1 4 AM EST Farhana Horn DO POINT OF CARE TEST ENTER/PAUL T ORDERABLES Final Result * POCT Glucose (11/04/2024 10:14 AM EST) Glucose Blood, POC 141 60 - 200 mg/dL QC Media Lot # [id number] Lot# Expiration Date 029 Blood Capillary blood specimen / Unknown 11/04/2024 10:14 AM EST Farhana Horn DO POINT OF CARE TEST ENTER/PAUL T ORDERABLES Final Result * (ABNORMAL) Urinalysis, Complete, with Reflex to Culture (10/29/2024 11:01 PM EST) Color Urine Dark Yellow [facility] Appearance Urine Cloudy [facility] PH 5.5 5.0 - 9.0 [facility] Glucose Urine UA Negative Negative mg/dL [facility] Urine Blood Negative Negative [facility] Specific [place] - Urine >=1.030(H) 1.005 - 1.025 [facility] Urine Protein 30 (1+)(A) Neg-Trace mg/dL [facility] Urine Ketones 15 Negative mg/dL [facility] Nitrite Urine Negative Negative [facility] Leukocyte Esterase Urine Trace(A) Negative [facility] RBC Urine 0-2 0 - 2 /HPF [facility] Urine WBC 0-5 0 - 5 /HPF [facility] Urine Squamous Epithelial Cell 3-5 0 - 2 /HPF [facility] Urine Bacteria 1+ None Seen [facility] Hyaline Casts, Urine 3-5 0 - 2 /LPF [facility] 10/29/2024 11:0 1 PM EST 10/29/2024 11:12 PM EST Narrative [facility] - 10/29/2024 11:24 PM EST Urine, Clean Catch us Generic External Data Provider LAB URINE ORDERAB LES Final Result [facility] [address] [place] [address] [phone] * (ABNORMAL) CBC auto differential (10/29/2024 12:06 PM EST) White Blood Count 7.4 4.8 - 10.8 X10*3/uL [facility] Red Blood Count 4.83 4.20 - 5.50 X10*6/uL [facility] Hemoglobin 13.3 12.0 - 16.0 g/dl [facility] Hematocrit 40.4 37.0 - 47.0 % [facility] Mean Corpuscular Volume 83.6 80.0 - 98.0 fL [facility] Mean Corpuscular Hemoglobin 27.5 27.0 - 33.0 pg [facility] Mean Corpuscular HGB Conc 32.9 31.0 - 35.0 g/dl [facility] Red Cell Distribution Width 13.4 11.0 - 16.0 % [facility] Platelet Count 302 160 - 400 X10*3/uL [facility] Mean Platelet Volume 8.0(L) 9.4 - 12.3 fL [facility] Neutrophils Percent Auto 45.2 45 - 73 % [facility] Imm Gran Pct Auto 0.1 0.0 - 0.4 % [facility] Lymphocytes Percent Auto 40.7(H) 20 - 40 % [facility] Monocytes Percent Auto 11.2(H) 2 - 11 % [facility] Eosinophils Percent Auto 2.4 0 - 4 % [facility] Basophils Percent Auto 0.4 0 - 2 % [facility] NRBC Pct Auto 0.0 0.0 - 0.2 /100WBC [facility] Neutrophils Absolute Auto 3.3 2.0 - 8.3 x10*3/uL [facility] Imm Gran Abs Auto 0.01 0.00 - 0.03 X10*3/uL [facility] Lymphocytes Absolute Auto 3.0 1.2 - 4.9 X10*3/uL [facility] Monocytes Absolute Auto 0.8 0.1 - 1.2 X10*3/uL [facility] Eosinophils Absolute Auto 0.2 0.0 - 0.4 X10*3/uL [facility] Basophils Absolute Auto 0.0 0.0 - 0.2 X10*3/uL [facility] NRBC Abs Auto 0.000 0.0 - 0.012 X10*3/uL [facility] 10/29/2024 12:0 6 PM EST 10/29/2024 12:09 PM EST Generic External Data Provider LAB BLOOD ORDERAB LES Final Result Performing Organization Address City/[facility]/ZIP Co de Phone Number [facility] [address] [place] [address] [phone] * (ABNORMAL) Prothrombin Time-INR (10/29/2024 12:06 PM EST) Prothrombin Time 12.6(H) 10.9 - 12.4 SEC [facility] INTERNATIONAL NORM RATIO 1.1 0.9 - 1.1 [facility] Comment:INTERNATIONAL NORMAL IZED RATIO (INR) [...] ORDERAB LES Final Result Performing Organization Address [facility]/ZIP Co de Phone Number [facility] [address] [place] [address] [phone] * Magnesium (10/29/2024 12:06 PM EST) Magnesium 1.9 1.6 - 2.6 mg/dL [facility] 10/29/2024 12:0 6 PM EST 10/29/2024 12:09 PM EST us Generic External Data Provider LAB BLOOD ORDERAB LES Final Result [facility] [address] [place] [address] [phone] * (ABNORMAL) Comprehensive Metabolic Panel (10/29/2024 12:06 PM EST) Sodium 140 135 - 145 mmol/L [facility] Potassium 3.7 3.3 - 5.1 mmol/L [facility] Chloride 112(H) 96 - 108 mmol/L [facility] Carbon Dioxide 21(L) 22 - 29 mmol/L [facility] Anion Gap 11(L) 12 - 20 [facility] Urea Nitrogen (BUN) 19(H) 9 - 16 mg/dL [facility] Creatinine, Serum 0.79 0.5 - 1.4 mg/dL [facility] Creatinine Clr Calc Pharmacy 68.7 [facility] Comment:Provided height and weight: 152.4 cm,68.6 kg.eGFR (calculated from the MDRD study equation) and eCrCl(calculated from the Cockcroft-Gault equation) are based ondifferent parameters and may not yield comparable results.If eCrCl result is absurd, please check patient'sheight/weight. Estimated Glomerular Filt Rate >60 [facility] Comment:Chronic Kidney Disea se: Estimated GFR < 60 mL/min/1.21s4Guudva Kidney Disease: Estimated GFR < 15 mL/min/1.73m2 Glucose 123(H) 60 - 115 mg/dL [facility] Calcium 9.3 8.4 - 10.2 mg/dL [facility] Bilirubin, Total 0.4 0.0 - 1.0 mg/dL [facility] Aspartate Amino Transferase 28 5 - 31 U/L [facility] Alanine Aminotransferase 41(H) 0 - 31 U/L [facility] Total Protein 8.2(H) 6.5 - 8.0 g/dL [facility] Albumin Level 4.2 3.5 - 5.0 g/dL [facility] Alkaline Phosphatase 140(H) 39 - 117 U/L [facility] 10/29/2024 12:0 6 PM EST 10/29/2024 12:09 PM EST Generic External Data Provider LAB BLOOD ORDERAB LES Final Result Performing Organization Address [facility] Co de Phone Number [facility] [address] [place] [phone] * (ABNORMAL) HPV DNA, Low/High Risk (10/27/2024 9:07 AM EST) HPV High Risk Positive(A) Negative [facility] HPV Genotype 16 Negative Negative [facility] HPV Genotype 18 Negative Negative [facility] Comment:HPV testing performe d at [facility] (CLIA#[id number]), [address] [place] [address].Testing for HPV was performed using the Milana [...] ORDERAB LES Final Result Performing Organization Address [facility] Co de Phone Number [facility] [address] [place] [phone] * Pap Smear (10/27/2024 9:07 AM EST) 10/27/2024 9:07 AM EST 10/27/2024 2:15 PM EST Narrative [facility] - 11/02/2024 3:56 PM EST ----- ------- Name: Tri Bowens ? Age/Sex: 53/F ? : 1970 Unit#: [id number] ?? Attend Dr: Fabio Morin MD ?Re10/27/24 ?Status: DEP REF ? Location: HO.LNP ?Disch: ? ----- ------- SPEC : [id number] ? RECD: 10/27/24-442 ? STATUS: ??SOUT ? REQ NUM: [id number] ? ANITA: 10/27/24-906 ? SUBM DR: Fabio [...] [facility] ?? [address] ?? [place] [address] ?? [phone] ?? Fabio Morin MD ?? [facility] ?? [address] ?? [place] [address] ?? [phone] ----- ------- Signed (signature on file) CORI Ortez ([facility]) 11/02/24 3406 ? ----- ------- ? END OF REPORT ? us Generic External Data Provider LAB CYTOLOGY BROOKE GREY Final Result [facility] [address] [place] [phone] * OCT, Retina - OU - [...] EST Narrative 10/04/2024 9:14 AM EST ? [facility] [place] ? [address] ?[place] [address] ? Mammography Report ? Signed ? Patient: Kwan,Tri ?MR#: [id number] ?? 63 ? : 1970 ?Acct:[id number] ? Age/Sex: 53 / F ?ADM Date: 01/15/25 ? Loc: HO.MAMMO ? Attending Dr: Farhana Horn DO ? Ordering Physician: Farhana Horn DO ?Results: 1N ?? egative ? Date of Service: 09/23/24 ?Follow Up: 1 Year From Orig ?? inal Mammogram ? Procedure(s): MM tomosynthesis screening BI ?? Accession Number(s): [id number] ? cc: Farhana Horn DO ? EXAMINATION: [...] DD/ 1030 ? TD/TT: 09/23/24 1041 ? Tile Molder Hand: ? Procedure Note Donotjonnainterpreter, Image - 10/04/2024 [facility] [address] [place] [address] Mammography Report Signed Patient: Tri BowensMR#: [id number] 63 : 1970Acct:[id number] Age/Sex: 53 / FADM Date: 09/23/24 Loc: HO.MAMMO Attending Dr: Farhana Horn DO Ordering Physician: Farhana Hornults: 1N egative Date of Service: 09/23/24Follow Up: 1 Year From Orig inal Mammogram Procedure(s): MM tomosynthesis screening BI Accession Number(s): [id number] cc: Farhana Horn DO EXAMINATION: MM SCREENING [...] Francia Vázquez DO 10/04/2024 09:11 AM EST RP Dictated By: Francia Vázquez DO Signed By: <Electronically signed by Francia Vázquez DO in OV> 10/04/24 0911 DD/ 1030 TD/TT: 09/23/24 1041 Tile Molder Hand: Farhana Horn DO IMG BI PROCEDURES Edited Res ult - Final * Albumin, Random Urine W/Creatinine (07/26/2023 12:26 PM EST) Creatinine, Urine 182.16 mg/dL [facility] Microalbumin Urine 14.0 mg/L [facility] Microalbum Creatinine Ratio Ur 7.6 <30 ug/mg cr [facility] Comment:Albumin/Creatinine R atio Reference Ranges: Normal: < 30 ug/mg creatinine Microalbuminuria: 30 - 300 ug/mg creatinineClinical Albuminuria: > 300 ug/mg creatinine 07/26/2023 12:2 6 PM EST 07/26/2023 1:28 PM EST us Farhana Horn DO LAB URINE ORDERABLES Final R esult Performing Organization Address City/State/[facility] Co de Phone Number [facility] [address] [place] [address] [phone] * (ABNORMAL) Lipid Panel, Standard (07/26/2023 12:23 PM EST) Triglycerides 132 <150 mg/dL [facility] Comment:Desirable Triglyceri de: less than 150 mg/dLBorderline High Triglyceride 150-199 mg/dLHigh Triglyceride: 200-499 mg/dLVery High Triglyceride: greater than or equal to 5OO mg/dL Cholesterol 150 <200 mg/dL [facility] Comment:Desirable Cholestero l: less than 200 mg/dLBorderline High Cholesterol: 200-239 mg/dLHigh Cholesterol: greater than 239 mg/dL LDL Cholesterol Calculated 85 <100 mg/dL [facility] Comment:Desirable LDL: less than 100 mg/dLNear Optimal/Above Optimal LDL: 110- 129 mg/dLBorderline High LDL: 130-159 mg/dLHigh LDL: 160-189 mg/dLVery High LDL: greater than or equal to 190 mg/dL HDL Cholesterol 39(L) >40 mg/dL [facility] Comment:Desirable HDL: great er than 40 mg/dL Note: This HDL assay may give artificially low results in patients with liver disease. Blood Venous blood specimen / Unknown 07/26/2023 12:23 PM EST 07/26/2023 1:26 PM EST us Farhana Horn DO LAB BLOOD ORDERABLES Final R esult Performing Organization Address City/[facility]/ZIP Co de Phone Number [facility] [address] [place] [phone] * HEPATITIS C AB W/REFL TO [...] a test for HCV RNA (test code 32067) is suggested. ?? For additional information please refer to http://education.[employer]/faq/WVB52s8 (This link is being provided for informational/ [...] ? For additional information please refer to http://education.[employer]/faq/WLQ113 (This link is being provided for informational/ [...] Health Maintenance Insurance [facility] C3 Care Teams Keller Machine Operator Relationship Specialty Start Date End Date Farhana Horn DO [address] [place] [phone] PCP - General Family Medicine 09/09/18
== END 2025-01-05 12:42 | disposition home or self-care (01) ==
LOC: HO.HWS 11:40
PROVIDERS: PCP Family Medicine; Visit Provider Obstetrics & Gynecology
DX: R87.810 Cervical high risk human papillomavirus (HPV) DNA test positive (principal)
CPT/HCPCS: 99213

== ENCOUNTER → 2025-01-05 11:40 | Outpatient (BNVA) | payer MEDICAID, SELFPAY | PROVIDERS: PCP Family Medicine; Visit Provider Obstetrics & Gynecology | DX: B97.7 Papillomavirus as the cause of diseases classified elsewhere (principal) | CPT/HCPCS: 99212 ==

== ENCOUNTER 2025-01-25 10:10 | Outpatient (REF) | payer MEDICAID, SELFPAY ==
--- NOTE | ~2025-01-25 | US_ITS ---
CLINICAL HISTORY: N20.0 - Calculus of kidney US Renal Comparison: 02/12/2024. Findings: Right kidney normal size and echotexture, 10.3 cm length. Tiny stable benign cyst. Left kidney normal size and echotexture, 9.9 cm length. No hydronephrosis of either kidney. Normal color Doppler IMPRESSION: Tiny stable benign right-sided cyst. No further follow-up for this. This document has been electronically signed by: Cash Wilkerson MD on 01/25/2025 13:12:43
--- OUTSIDE RECORDS SUMMARY | 2025-01-25 10:45 | XMS_ITS | Encounter Summary ---
Author Organization [employer] Address [address] [place] [address] [address] [place] [address] Care Team Providers Care Animal Care Assistant Name Role Phone Farhana Horn DO Primary Care Provider + [phone] Reason for Visit * Reason Comments Med Refill Encounter Details Date Type Department Care Team (Late st Contact Info) Description 12/13/2022 Refill [facility] [address] [place], [place] [phone] [facility] [address] [place] [address] Hyperlipidemia, unspecified hyperlipidemia type Social History Tobacco [...] Office Visit [facility] [address] [place] [address] Farhana Horn DO [address] [place] [address] documented as of this encounter Visit Diagnoses Diagnosis Hyperlipidemia, unspecified hyperlipidemia type documented in this encounter Care Teams Animal Care Assistant Relationship Specialty Start Date End Date Farhana Horn DO [address] [place] [phone] PCP - General Family Medicine 09/09/18 documented as of this encounter
--- OUTSIDE RECORDS SUMMARY | 2025-01-25 10:45 | XMS_ITS | Encounter Summary ---
Author Organization [employer] Address [address] [place] [address] [address] [place] [address] Care Team Providers Care Edge Baster Name Role Phone Farhana Horn Primary Care Provider + [phone] Encounter Details Date Type Department Care Team ([facility] st Contact Info) Description 12/07/2024 Orders Only [facility] MED & PEDS [address] [place] [address] Carmelita Kruse Social History Tobacco Use Types [...] the past 12 months, has t he [employer], gas, oil or water company threatened to [...] 10:15 AM EDT Office Visit [facility] MEDICINE [address] [place] [address] Farhana Horn DO [address] [place] [address] documented as of this encounter Procedures Procedure Name Priority Date/Time Associated Diagnosis Comments COLPOSCOPY Routine 12/02/2024 12:00 AM EDT documented in this encounter Results * Colposcopy (12/02/2024 12:00 AM EDT) us Historical Provider MD IN CLINIC/BEDSIDE ORDERAB LES Final Result [facility] [address] [place] [phone] documented in this encounter Visit Diagnoses Not on filedocumented in this encounter Additional Health Concerns Assessment Noted Time PHQ-9 Depression Total Score: 13 11/25/ 025 10:22 AM EDT documented as of this encounter Care Teams Edge Baster Relationship Specialty Start Date End Date Farhana Horn DO [address] [place] [address] PCP - General Family Medicine 09/09/18 documented as of this encounter
--- OUTSIDE RECORDS SUMMARY | 2025-01-25 10:45 | XMS_ITS | Encounter Summary ---
Author Organization [employer] Address [address] [place] [address] [address] [place] [address] Care Team Providers Care Basketball Assembler Name Role Phone Farhana Horn DO Primary Care Provider + [phone] Reason for Visit * Reason Onset Date Comments Med Refill 01/22/2025 Encounter Details Date Type Department Care Team ([facility] st Contact Info) Description 01/22/2025 Refill [facility] [address] [place] [address] Farhana Horn DO [address] [place] [address] Social History Tobacco Use Types Packs/Day Years [...] Telephone Encounter - Allison Marshall RN - 01/22/2025 9:02 AM EDT RN received request from [facility] for PA request for freestyle lite meter and test strips. RN called [facility] pharmacy [phone] to inquire on which brand insurance would like in place of freestyle. RN was informed it is not informing the pharmacist once they scanned it. Pharmacy unable to provide any further information. RN called [facility] pharmacy who reports Freestyle brand should be used. RN was informed pharmacy uses a coupon for coverage. TC placed to patient [phone] to inquire if patient is willing to p/u glucometer and test strips at [facility] pharmacy as they are not covered at [facility] pharmacy. Patient is agreeable to RX being sent to [facility] pharmacy instead. RN called [facility] pharmacy to inform them that RX's for this patient will be sent to [facility] for the glucometer and test strips. [facility] pharmacy informed, the patient would like a call once meter and test strips are available for p/u. [facility] pharmacy verbalized understanding. documented in this encounter Plan of Treatment Upcoming Encounters Date Type Department Care Team ([facility] st Contact Info) Description 01/29/2025 10:15 AM EDT Office Visit [facility] [address] [place] [address] Farhana Horn DO [address] [place] [address] documented as of this encounter Visit Diagnoses Not on filedocumented in this encounter Additional Health Concerns Assessment Noted Time PHQ-9 Depression Total Score: 13 11/25/2 025 10:22 AM EDT documented as of this encounter Care Teams Basketball Assembler Relationship Specialty Start Date End Date Farhana Horn DO [address] [place] [address] PCP - General Family Medicine 09/09/18 documented as of this encounter
--- OUTSIDE RECORDS SUMMARY | 2025-01-25 10:45 | XMS_ITS | Clinical Summary ---
Author Organization [employer] Address [address] [place] [address] 7[address] [place] [address] Care Team Providers Care Cold Reduction Roller Name Role Phone Farhana Horn DO Primary Care Provider [phone] Allergies Active Allergy Reactions Criticality Noted Date [...] 2 diabetes mellitus without complication, unspecified whether intermediate frame tender insulin use (CMS/HCC) Take 1 tablet by [...] Active metroNIDAZOLE (Flagyl) 500 MG tablet TOME TEIRA TABLETA VIA ORAL CADA 8 HORAS 025 Active cholecalciferol (Vitamin D-3) 50 MCG (2000 UT) capsule Take 1 capsule (50 mcg) by mouth Once per day. 30 capsule 11 025 11/24 Active atorvastatin (Lipitor) 20 MG tabletIndications: Hyperlipidemia, unspecified hyperlipidemia type TAKE ONE TABLET BY MOUTH DAILY AT BEDTIME 90 tablet 1 025 Active Lancets misc Use to test blood sugar 2 times daily 100 each 025 Active Alcohol Swabs 70 % pads Use to test blood sugar 2 times daily 100 each 025 Active Blood Pressure kit 1 each 1 (one) time per week. 1 kit 025 Active Blood Glucose Monitoring Suppl (FreeStyle Atlantic Lite) w/Device kit Use to test blood sugar 2 times daily 1 kit 025 Active FREESTYLE LITE test strip Use to test blood sugar 2 times daily 100 each 11 025 01/22 Active atorvastatin (Lipitor) 20 MG tabletIndications: Hyperlipidemia, unspecified hyperlipidemia type TAKE ONE TABLET BY MOUTH AT BEDTIME 90 tablet 1 024 12/29 Discontinued FREESTYLE LITE test strip Use to test blood sugar 2 times daily 100 each 11 025 01/22 Discontinued( Reorder (will not trigger notification to Pharmacy)) Blood Glucose Monitoring Suppl (FreeStyle Atlantic Lite) w/Device kit Use to test blood sugar 2 times daily 1 kit 025 01/22 Discontinued( Reorder (will not trigger notification to [...] completed the intake process with [facility] at [facility] after today's session. clinician will provide additional support to assess sxs and services in place. Pt agreed with the plan. Provided HC contact information. Healthcare maintenance 12/09/2023 Assessment & Plan (12/09/2023 2:24 PM EDT): -s/p flu vaccine JUL 2023 -s/p COVID vaccine JUL 2023 -s/p Tdap FEB 2021 -PCV20 today -s/p Shingrix Nov 2021 -Hep B immune -colonoscopy with diverticulosis January 2019, repeat 5 years per GI -mammo BIRADS 10 SEP 2023 -pap nml/HPV negative JUL 2020 with [employer] -DEXA with osteopenia JUL 2023 -STI/HIV screen [...] nightly -s/p optho eval Apr 2023 at [facility] -foot exam next visit* Allergic rhinitis 03/15/2023 [...] -f/u with neurology as scheduled -advised contact [facility] if no improvement Irritable bowel syndrome 08/22/2015 [...] organization. Date Type Department Care Team Description 01/22/[address] [address] Farhana Horn DO 01/21/2025 Patient Outreach [address] [address] Farhana Horn DO Pre-visit Planning (SDOH screening completed on 11/05/2024) 01/18/2025 Orders Only [address] [address] Farhana Horn DO 01/14/2025 Patient Outreach [facility] [address] [place] [address] Farhana Horn DO Abdominal Pain; Care Coordination (C3/CM F/U) 01/14/2025 Telephone [facility] [address] [place] [address] Farhana Horn DO Care Coordination (C3CM f/u call- request for BP machine and BG machine) 01/01/2025 Patient Outreach [address] [address] Farhana Horn DO Care Coordination (C3/CM F/U) 12/25/2024 Refill [facility] [address] [place] [address] Farhana Horn DO Hyperlipidemia, unspecified hyperlipidemia type 12/17/2024 Patient Outreach [address] [address] Farhana Horn DO Care Coordination (C3/CM F/U) 12/07/2024 Orders Only [facility] [address] [place] [address] Carmelita Kruse 12/04/2024 Patient Outreach [address] [address] Farhana Horn DO Care Coordination (C3/CM follow up) 12/02/2024 11:15 AM EDT Office Visit [facility] OPTOMETRY [address] [place] [address] Steven, Danette, OD Presbyopia (Primary Dx) 12/02/2024 Orders Only GENERIC EXTERNAL DATA DEPARTMENT Provider, Generic External Data 12/02/2024 Travel 11/23/2024 Patient Outreach [facility] [address] [place] [address] Farhana Horn DO Care Coordination (Outreach) 11/23/2024 Refill [facility] [address] [place] [address] Farhana Horn DO 11/20/2024 Population Health Risk Score [facility] ([facility] Department [address] [place] [phone] Provider, Population Health Generic 11/13/2024 Orders Only GENERIC EXTERNAL DATA DEPARTMENT Provider, Generic External Data 11/09/2024 Telephone [facility] [address] [place] [address] Farhana Horn DO Care Coordination ([facility] initial assessment/ enrollment) 11/05/2024 Patient Outreach [facility] [address] [place] [address] Farhana Horn DO Care Coordination (Outreach) 11/04/2024 10:00 AM EST Office Visit [facility] MEDICINE [address] [place] [address] Farhana Horn DO Generalized abdominal pain (Primary Dx); Cough with hemoptysis; Generalized weakness; Type 2 diabetes mellitus without complication, without long-term current use of insulin ([facility]) 11/04/2024 Orders Only [facility] External Provider, [facility] 11/04/2024 Travel 10/29/2024 Orders Only GENERIC EXTERNAL DATA DEPARTMENT Provider, Generic External Data 10/29/2024 Telephone [facility] MEDICINE [address] [place] [address] Farhana Horn DO Nurse Triage 10/29/[address] [phone] Farhana Horn DO Appointment Request from Last 3 Months Immunizations Immunization Administration Dates Next Due Hep B, Adolescent [...] AM EDT Office Visit [facility]ICINE [address] [place] [address] Farhana Horn DO [address] [place] [address] Health Maintenance Due Date Last Done Comments [...] patient's age to complete this topic Meningococcal B Vaccine Aged Out No l onger eligible based on patient's age to complete [...] QL NAAT Routine 10/29/2024 12:06 PM EST HPV DNA, LOW/HIGH RISK Routine 9:07 AM EST PAP SMEAR Routine 10/27/2024 9:07 AM EST BI MAMMOGRAM SCREENING TOMOSYNTHESIS [...] 3 AM EDT 12/02/2024 3:10 PM EDT [facility] - 12/03/2024 4:42 PM EDT ----- ------- Name: Tri Bowens ? Age/Sex: 54/F ? : 1970 Unit#: [id number] ?? Attend Dr: Fabio Morin MD ?Re12/02/24 ?Status: DEP REF ? Location: HO.LNP ?Disch: ? ----- ------- SPEC : [id number] ? RECD: 12/02/24-1510 ? STATUS: ??SOUT ? REQ NUM: [id number] ? ANITA: 12/02/24-1033 ? SUBM DR: Fabio Morin MD ? ENTERED: ??12/02/24-1520 ?SP TYPE: Surgical ? OTHR : Farhana Horn DO ? ORDERED: ??HE Stain/8, [...] Comment: ??The patient's previous negative Pap test ([id number]) concurs with the current ?? biopsy. ?Clinical [...] in toto in a cassette labeled C. TRI ? CONTINUED ON NEXT PAGE ----- ------- Name: Tri Bowens ? Age/Sex: 54/F ? : 1970 Unit#: [id number] ?? Attend Dr: Fabio Morin MD ?Re12/02/24 ?Status: DEP REF ? Location: HO.LNP ?Disch: ? ----- ------- SPEC : [id number] ? RECD: 12/02/24-1510 ? STATUS: ??SOUT ? REQ NUM: [id number] ? ANITA: 12/02/24-1033 ? SUBM DR: Fabio Morni MD ? ENTERED: ??12/02/24-1520 ?SP TYPE: Surgical ? OTHR : Farhana Horn DO ? ORDERED: ??HE Stain/8, Gross Micro L4/3 ? Copies To: ?? Farhana Horn DO ?? [facility] ?? [address] ?? [place] [address] ?? [phone] ?? Fabio Morin MD ?? [facility] Women's Services ?? [address] ?? [place] [address] ?? [phone] ----- ------- Signed (signature on file) Deb Prater 12/03/242 ? ----- ------- ? END OF REPORT ? us Generic External Data Provider LAB BLOOD ORDERAB LES Final Result Performing Organization Address City/State/[facility] Co de Phone Number [facility] [address] [place] [address] [phone] * Colposcopy (12/02/2024 12:00 AM EDT) us Historical Provider MD IN CLINIC/BEDSIDE ORDERAB LES Final Result Performing Organization Address [facility] Co de Phone Number [facility] [address] [place] [address] [phone] * (ABNORMAL) Glucose, Whole Blood (11/13/2024 9:04 AM EST) Pathologist [facility] Glucose, Whole Blood 165(H) 60 - 115 mg/dL [facility] Comment:METER #: [id number] Testing performed in the Endocrinology Department [address] , [address], [facility]. 11/13/2024 9:04 AM EST 11/13/2024 9:12 AM EST us Generic External Data Provider LAB BLOOD ORDERAB LES Final Result Performing Organization Address [facility] de Phone Number [facility] [address] [place] [address] [phone] * (ABNORMAL) SARS-CoV-2 RNA, Influenza A/B, and RSV RNA, Ql NAAT (11/04/2024 2:59 PM EST) Only the most recent of2 resultswithin the time period is included. [facility] Influenza A PCR POSITIVE(A) Negative [facility] Influenza B PCR NEGATIVE Negative [facility] Resp Syncy Virus RNA Qual PCR NEGATIVE Negative [facility] SARS COV2 PCR NEGATIVE Negative [facility] Comment:All test results mus t [...] use by authorized laboratories.Testing performed on the [place] GeneXpert utilizingreal-time RT-PCR.All SARS CoV2 and positive influenza A/B results arereported to [facility]. 11/04/2024 2:59 PM EST 11/04/2024 3:03 PM EST us Generic External Data Provider LAB MICROBIOLOGY - GENERAL ORDERABLES Final Result [facility] [address] [place] [address] [phone] * CTA Chest PE Protocal (11/04/2024 1:16 PM EST) Anatomical Region Laterality Modality Body, Chest Computed Tomogra phy 11/04/2024 1:16 PM EST Narrative 11/04/2024 1:38 PM EST ? [facility] ?[address] ?[place] [address] ? CT Scan Report ? Signed ? Patient: Tri Bowens ?MR#: [id number] ?? 63 ? : 1970 ?Acct:[id number] ? Age/Sex: 54 / F ?ADM Date: 11/04/24 ? Loc: HO.ED ? Attending Dr: ? Ordering Physician: Brenden Denton MD ?? Date of Service: 11/04/24 ?? Procedure(s): CT angio chest PE protocol ?? Accession Number(s): [id number] ? cc: Brenden Denton MD; Farhana Horn DO ? Report Number: ?? [id number]: Total DLP = ??278.00 mGy-cm ?? EXAMINATION: [...] Brooks MD ??11/04/2024 01:34 PM ?? EST ? Dictated By: ?Yariel Buchanan MD ? Signed By: ?<Electronically signed by Yariel Garcia MD in OV> ? 11/04/24 1334 ? DD/ 1316 ? TD/TT: 11/04/24 1316 ? Barrel Polisher: ? Procedure Note Wai Bose - 11/04/[address] [address] Scan Report Signed Patient: Tri Bowens#: [id number] 63 : 1970Acct:[id number] Age/Sex: 54 / FADM Date: 11/04/24 Loc: HO.ED Attending Dr: Ordering Physician: Brenden Denton MD Date of Service: 11/04/24 Procedure(s): CT angio chest PE protocol Accession Number(s): [id number] cc: Brenden Denton MD; Farhana Horn DO Report Number: [id number]: Total DLP = 278.00 mGy-cm EXAMINATION: CT [...] by: Yariel Brooks MD 11/04/2024 01:34 PM [facility] Dictated By: Yariel Buchanan MD Signed By: <Electronically signed by Ajit Willard OV> 11/04/24 1334 DD/ 1316 TD/TT: 11/04/24 1316 Barrel Polisher: [facility] External Provider IMG CT PROCEDURES Final Result * CT Abdomen Pelvis w/ Contrast (11/04/2024 11:43 AM EST) Only the most recent of2 resultswithin the time period is included. Anatomical Region Laterality Modality Body, Pelvis, Abdomen Computed T omography 11/04/2024 11:4 3 AM EST Narrative 11/04/2024 1:32 PM EST ? [facility] ?[address] ?[place] [address] ? CT Scan Report ? Signed ? Patient: Kwan,Tri ?MR#: [id number] ?? 63 ? : 1970 ?Acct:[id number] ? Age/Sex: 54 / F ?ADM Date: 11/04/24 ? Loc: HO.ED ? Attending Dr: ? Ordering Physician: Brenden Denton MD ?? Date of Service: 11/04/24 ?? Procedure(s): CT abdomen pelvis w IV con ?? Accession Number(s): [id number] ? cc: Brenden Denton MD; Farhana Horn DO ? Report Number: ?? [id number]: Total DLP = ??462.00 mGy-cm ?? EXAMINATION: [...] DD/ 1143 ? TD/TT: 11/04/24 1316 ? Barrel Polisher: ? Procedure Note Juice, Wai - 11/04/[address] [place] [address] [address] Scan Report Signed Patient: Wang Bowens#: [id number] 63 : 1970Acct:[id number] Age/Sex: 54 / FADM Date: 11/04/24 Loc: HO.ED Attending Dr: Ordering Physician: Brenden Denton MD Date of Service: 11/04/24 Procedure(s): CT abdomen pelvis w IV con Accession Number(s): [id number] cc: Brenden Denton MD; Farhana Horn DO Report Number: [id number]: Total DLP = 462.00 mGy-cm EXAMINATION: CT [...] 11/04/24 1328 DD/ 1143 TD/TT: 11/04/24 1316 Barrel Polisher: [facility] External Provider IMG CT PROCEDURES Final Result * (ABNORMAL) POCT HGB A1C (11/04/2024 10:14 AM EST) Hemoglobin A1C 6.5(A) 4.0 - 6.0 % QC Media Lot # [id number] Lot# Expiration Date Blood 11/04/2024 10:1 4 AM EST Farhana Horn DO POINT OF CARE TEST ENTER/PAUL T ORDERABLES Final Result * POCT Glucose (11/04/2024 10:14 AM EST) Pathologist [facility] Glucose Blood, POC 141 60 - 200 mg/dL QC Media Lot # [id number] Lot# Expiration Date Blood Capillary blood specimen / Unknown 11/04/2024 10:14 AM EST Farhana Horn DO POINT OF CARE TEST ENTER/PAUL T ORDERABLES Final Result * (ABNORMAL) Urinalysis, Complete, with Reflex to Culture (10/29/2024 11:01 PM EST) Color Urine Dark Yellow [facility] Appearance Urine Cloudy [facility] PH 5.5 5.0 - 9.0 [facility] Glucose Urine UA Negative Negative mg/dL [facility] Urine Blood Negative Negative [facility] Specific [place] - Urine >=1.030(H) 1.005 - 1.025 [facility] Urine Protein 30 (1+)(A) Neg-Trace mg/dL [facility] Urine Ketones 15 Negative mg/dL [facility] Nitrite Urine Negative Negative [facility] Leukocyte Esterase Urine Trace(A) Negative [facility] RBC Urine 0-2 0 - 2 /HPF [facility] Urine WBC 0-5 0 - 5 /HPF [facility] Urine Squamous Epithelial Cell 3-5 0 - 2 /HPF [facility] Urine Bacteria 1+ None Seen [facility] Hyaline Casts, Urine 3-5 0 - 2 /LPF [facility] 10/29/2024 11:0 1 PM EST 10/29/2024 11:12 PM EST Narrative [facility] - 10/29/2024 11:24 PM EST Urine, Clean Catch us Generic External Data Provider LAB URINE ORDERAB LES Final Result [facility] [address], [place] [phone] * (ABNORMAL) CBC auto differential (10/29/2024 12:06 PM EST) White Blood Count 7.4 4.8 - 10.8 X10*3/uL [facility] Red Blood Count 4.83 4.20 - 5.50 X10*6/uL [facility] Hemoglobin 13.3 12.0 - 16.0 g/dl [facility] Hematocrit 40.4 37.0 - 47.0 % [facility] Mean Corpuscular Volume 83.6 80.0 - 98.0 fL [facility] Mean Corpuscular Hemoglobin 27.5 27.0 - 33.0 pg [facility] Mean Corpuscular HGB Conc 32.9 31.0 - 35.0 g/dl [facility] Red Cell Distribution Width 13.4 11.0 - 16.0 % [facility] Platelet Count 302 160 - 400 X10*3/uL [facility] Mean Platelet Volume 8.0(L) 9.4 - 12.3 fL [facility] Neutrophils Percent Auto 45.2 45 - 73 % [facility] Imm Gran Pct Auto 0.1 0.0 - 0.4 % [facility] Lymphocytes Percent Auto 40.7(H) 20 - 40 % [facility] Monocytes Percent Auto 11.2(H) 2 - 11 % [facility] Eosinophils Percent Auto 2.4 0 - 4 % [facility] Basophils Percent Auto 0.4 0 - 2 % [facility] NRBC Pct Auto 0.0 0.0 - 0.2 /100WBC [facility] Neutrophils Absolute Auto 3.3 2.0 - 8.3 x10*3/uL [facility] Imm Gran Abs Auto 0.01 0.00 - 0.03 X10*3/uL [facility] Lymphocytes Absolute Auto 3.0 1.2 - 4.9 X10*3/uL [facility] Monocytes Absolute Auto 0.8 0.1 - 1.2 X10*3/uL [facility] Eosinophils Absolute Auto 0.2 0.0 - 0.4 X10*3/uL [facility] Basophils Absolute Auto 0.0 0.0 - 0.2 X10*3/uL [facility] NRBC Abs Auto 0.000 0.0 - 0.012 X10*3/uL [facility] 10/29/2024 12:0 6 PM EST 10/29/2024 12:09 PM EST us Generic External Data Provider LAB BLOOD ORDERAB LES Final Result Performing Organization Address City/State/[facility] Co de Phone Number [facility] [address] [place] [phone] * (ABNORMAL) Prothrombin Time-INR (10/29/2024 12:06 PM EST) Prothrombin Time 12.6(H) 10.9 - 12.4 SEC [facility] INTERNATIONAL NORM RATIO 1.1 0.9 - 1.1 [facility] Comment:INTERNATIONAL NORMAL IZED RATIO (INR) [...] ORDERAB LES Final Result Performing Organization Address [facility] Co de Phone Number [facility] [address] [place] [phone] * Magnesium (10/29/2024 12:06 PM EST) Magnesium 1.9 1.6 - 2.6 mg/dL [facility] 10/29/2024 12:0 6 PM EST 10/29/2024 12:09 PM EST [employer] External Data Provider LAB BLOOD ORDERAB LES Final Result Performing Organization Address [facility] de Phone Number [facility] [address] [place] [phone] * (ABNORMAL) Comprehensive Metabolic Panel (10/29/2024 12:06 PM EST) Sodium 140 135 - 145 mmol/L [facility] Potassium 3.7 3.3 - 5.1 mmol/L [facility] Chloride 112(H) 96 - 108 mmol/L [facility] Carbon Dioxide 21(L) 22 - 29 mmol/L [facility] Anion Gap 11(L) 12 - 20 [facility] Urea Nitrogen (BUN) 19(H) 9 - 16 mg/dL [facility] Creatinine, Serum 0.79 0.5 - 1.4 mg/dL [facility] Creatinine Clr Calc Pharmacy 68.7 [facility] Comment:Provided height and weight: 152.4 cm,68.6 kg.eGFR (calculated from the MDRD study equation) and eCrCl(calculated from the Cockcroft-Gault equation) are based ondifferent parameters and may not yield comparable results.If eCrCl result is absurd, please check patient'sheight/weight. Estimated Glomerular Filt Rate >60 [facility] Comment:Chronic Kidney Disea se: Estimated GFR < 60 mL/min/1.95n1Myyxvh Kidney Disease: Estimated GFR < 15 mL/min/1.73m2 Glucose 123(H) 60 - 115 mg/dL [facility] Calcium 9.3 8.4 - 10.2 mg/dL [facility] Bilirubin, Total 0.4 0.0 - 1.0 mg/dL [facility] Aspartate Amino Transferase 28 5 - 31 U/L [facility] Alanine Aminotransferase 41(H) 0 - 31 U/L [facility] Total Protein 8.2(H) 6.5 - 8.0 g/dL [facility] Albumin Level 4.2 3.5 - 5.0 g/dL [facility] Alkaline Phosphatase 140(H) 39 - 117 U/L [facility] 10/29/2024 12:0 6 PM EST 10/29/2024 12:09 PM EST us Generic External Data Provider LAB BLOOD ORDERAB LES Final Result [facility] [address] [place] [phone] * (ABNORMAL) HPV DNA, Low/High Risk (10/27/2024 9:07 AM EST) HPV High Risk Positive(A) Negative [facility] HPV Genotype 16 Negative Negative [facility] HPV Genotype 18 Negative Negative [facility] Comment:HPV testing performe d at [facility] (CLIA#[id number]), [address] [place] [address].Testing for HPV was performed using the Milana [...] BLOOD ORDERAB LES Final Result [facility] [address] [place] [phone] * Pap Smear (10/27/2024 9:07 AM EST) 10/27/2024 9:07 AM EST 10/27/2024 2:15 PM EST Narrative [facility] - 11/02/2024 3:56 PM EST ----- ------- Name: Tri Bowens ? Age/Sex: 53/F ? : 1970 Unit#: [id number] ?? Attend Dr: Fabio Morin MD ?Re10/27/24 ?Status: DEP REF ? Location: HO.LNP ?Disch: ? ----- ------- SPEC : [id number] ? RECD: 10/27/24 ? STATUS: ??SOUT ? REQ NUM: [id number] ? ANITA: 10/27/24 ? SUBM DR: Fabio [...] Copies To: ?? Farhana Horn DO ?? [facility] ?? [address] ?? [place] [address] ?? [phone] ?? Fabio Morin MD ?? [facility] Women's Services ?? [address] ?? [place] [address] ?? [phone] ----- ------- Signed (signature on file) CORI Ortez ([facility]) 11/02/24 1556 ? ----- ------- ? END OF REPORT ? us Generic External Data Provider LAB CYTOLOGY BROOKE GREY Final Result [facility] [address] [place] [address] [phone] * BI Mammogram Screening Tomosynthesis Bilateral (09/23/2024 10:30 AM EST) Anatomical Region Laterality Modality Breast Bilateral Mammography 09/23/2024 10:3 0 AM EST Narrative 10/04/2024 9:14 AM EST ? [facility] [place] ? [address] ?[place] [address] ? Mammography Report ? Signed ? Patient: Kwan,Tri ?MR#: [id number] ?? 63 ? : 1970 ?Acct:[id number] ? Age/Sex: 53 / F ?ADM Date: 01/15/25 ? Loc: HO.MAMMO ? Attending Dr: Farhana Horn DO ? Ordering Physician: Farhana Horn DO ?Results: 1N ?? egative ? Date of Service: 09/23/24 ?Follow Up: 1 Year From Orig ?? inal Mammogram ? Procedure(s): MM tomosynthesis screening BI ?? Accession Number(s): [id number] ? cc: Farhana Horn DO ? EXAMINATION: [...] DD/ 1030 ? TD/TT: 09/23/24 1041 ? Barrel Polisher: ? Procedure Note Donaaroninterpreter, Image - [facility] [address] [place] [address] Mammography Report Signed Patient: Tri BowensMR#: [id number] 63 : 1970Acct:[id number] Age/Sex: 53 / FADM Date: 09/23/24 Loc: HO.MAMMO Attending Dr: Farhana Horn DO Ordering Physician: Farhana Hornults: 1N egative Date of Service: 09/23/24Follow Up: 1 Year From Orig inal Mammogram Procedure(s): MM tomosynthesis screening BI Accession Number(s): [id number] cc: Farhana Horn DO EXAMINATION: MM SCREENING [...] 10/04/24 0911 DD/ 1030 TD/TT: 09/23/24 1041 Barrel Polisher: us Farhana Horn DO IMG BI PROCEDURES Edited Res ult - Final * Albumin, Random Urine W/Creatinine (07/26/2023 12:26 PM EST) Creatinine, Urine 182.16 mg/dL [facility] Microalbumin Urine 14.0 mg/L [facility] Microalbum Creatinine Ratio Ur 7.6 <30 ug/mg cr [facility] Comment:Albumin/Creatinine R atio Reference Ranges: Normal: < 30 ug/mg creatinine Microalbuminuria: 30 - 300 ug/mg creatinineClinical Albuminuria: > 300 ug/mg creatinine 07/26/2023 12:2 6 PM EST 07/26/2023 1:28 PM EST us Farhana Horn DO LAB URINE ORDERABLES Final R esult [facility] [address] [place] [phone] * (ABNORMAL) Lipid Panel, Standard (07/26/2023 12:23 PM EST) Triglycerides 132 <150 mg/dL [facility] Comment:Desirable Triglyceri de: less than 150 mg/dLBorderline High Triglyceride 150-199 mg/dLHigh Triglyceride: 200-499 mg/dLVery High Triglyceride: greater than or equal to 5OO mg/dL Cholesterol 150 <200 mg/dL [facility] Comment:Desirable Cholestero l: less than 200 mg/dLBorderline High Cholesterol: 200-239 mg/dLHigh Cholesterol: greater than 239 mg/dL LDL Cholesterol Calculated 85 <100 mg/dL [facility] Comment:Desirable LDL: less than 100 mg/dLNear Optimal/Above Optimal LDL: 110- 129 mg/dLBorderline High LDL: 130-159 mg/dLHigh LDL: 160-189 mg/dLVery High LDL: greater than or equal to 190 mg/dL HDL Cholesterol 39(L) >40 mg/dL [facility] [facility] Comment:Desirable HDL: great er than 40 mg/dL Note: This HDL assay may give artificially low results in patients with liver disease. Blood Venous blood specimen / Unknown 07/26/2023 12:23 PM EST 07/26/2023 1:26 PM EST Farhana Horn DO LAB BLOOD ORDERABLES Final R esult Performing Organization Address City/[facility]/ZIP Co de Phone Number [facility] [address] [place] [phone] * HEPATITIS C AB W/REFL TO [...] a test for HCV RNA (test code 39940) is suggested. ?? For additional information please refer to http://education.ActiveO/faq/EBQ37l9 (This link is being provided for informational/ educational purposes only.) ?? 07/09/2022 8:24 AM EDT Farhana Horn DO HISTORICAL/NON ORDERABLE LAB S Final Result Performing Organization Address City/[facility]/ZIP Co de Phone Number CONVERTED LEGACY LABS [...] ? For additional information please refer to http://[employer] (TEN).ActiveO/faq/BAV775 (This link is being provided for informational/ [...] Most Recently Relevant to Health Maintenance Insurance [facility] [address] [place] [id number] [address] [place] [address] Care Teams Cold Reduction Roller Relationship Specialty Start Date End Date Farhana Horn DO [address] [place] [address] PCP - General Family Medicine 09/09/18
--- OUTSIDE RECORDS SUMMARY | 2025-01-25 10:45 | XMS_ITS | Encounter Summary ---
Author Organization [employer] Address [address] [place] [address] 7t [place] [address] Care Team Providers Care In File Operator Name Role Phone Farhana Horn DO Primary Care Provider + [phone] Encounter Details Date Type Department Care Team ([facility] st Contact Info) Description 08/08/2023 Telephone [facility] MEDICINE [address] [place] [address] Farhana Horn DO [address] [place] [address] Social History Tobacco Use Types Packs/Day Years [...] t he electric, gas, oil or water [employer] threatened to shut off services in your [...] Visit [facility] MEDICINE [address] [place] [address] Farhana Horn DO [address] [place] [address] documented as of this encounter Visit Diagnoses Not on filedocumented in this encounter Additional Health Concerns Assessment Noted Time PHQ-9 Depression Total Score: 24 023 11:05 AM EDT documented as of this encounter Care Teams In File Operator Relationship Specialty Start Date End Date Farhana Horn DO [address] [place] [address] PCP - General Family Medicine 09/09/18 documented as of this encounter
--- OUTSIDE RECORDS SUMMARY | 2025-01-25 10:45 | XMS_ITS | Encounter Summary ---
Author Organization [employer] Address [address] [facility] 7t [place] [address] Care Team Providers Care Lighting Adviser Name Role Phone LizFarhana key Primary Care Provider + [phone] Encounter Details Date Type Department Care Team ([facility] st Contact Info) Description 12/20/2023 Orders Only [facility] MEDICINE [address] [place] [address] ProviderPantera MD Social History Tobacco Use Types [...] EDT Office Visit [facility] [address] [place] [address] Farhana Horn DO [address] [place] [address] documented as of this encounter Procedures Procedure [...] documented as of this encounter Care Teams Lighting Adviser Relationship Specialty Start Date End Date Farhana Horn DO [address] [place] [address] PCP - General Family Medicine 09/09/18 documented as of this encounter
--- OUTSIDE RECORDS SUMMARY | 2025-01-25 10:45 | XMS_ITS | Encounter Summary ---
Author Organization [employer] Address [address] [place] [address] 7 [place] [address] Care Team Providers Care Vp Packaging Name Role Phone Farhana Horn DO Primary Care Provider + [phone] Reason for Visit * Reason Comments Pre-visit Planning SDOH screening compl eted on 11/05/2024 Encounter Details Date Type Department Care Team ([facility] st Contact Info) Description 01/21/2025 Patient Outreach [facility] MEDICINE [address] [place], [place] [phone] Farhana Horn DO [address] [place], [place] [phone] Pre-visit Planning (SDOH screening completed on 11/05/2024) Social History Tobacco Use Types Packs/Day Years [...] as of this encounter Progress Notes * Margaret Cochran - 01/21/2025 10:41 AM EDT CC Margaret placed successful outbound call to patient for pre-visit planning. Patient name and confirmed. Patient confirms appt date and time, and has transportation. Biggest concern for appointment at this time is none Patient advised to bring to appointment a photo id and insurance card. Appropriate screenings completed in anticipation of appointment. documented in this encounter Plan of Treatment Upcoming Encounters Date Type Department Care Team (Late st Contact Info) Description 01/29/2025 10:15 AM EDT Office Visit [facility] MEDICINE [address] [place] [address] Farhana Horn DO [address] [place] [address] documented as of this encounter Visit Diagnoses Not on filedocumented in this encounter Additional Health Concerns Assessment Noted Time PHQ-9 Depression Total Score: 13 025 10:22 AM EDT documented as of this encounter Care Teams Vp Packaging Relationship Specialty Start Date End Date Farhana Horn DO [address] [place] [address] PCP - General Family Medicine 09/09/18 documented as of this encounter
--- OUTSIDE RECORDS SUMMARY | 2025-01-25 10:45 | XMS_ITS | Encounter Summary ---
Author Organization [employer] Address [address] [place] [address] 7 [place] [address] Care Team Providers Care Sample Case Porter Name Role Phone Farhana Horn DO Primary Care Provider + [phone] Encounter Details Date Type Department Care Team (Late st Contact Info) Description 09/12/2022 Orders Only [facility] MEDICINE [address] [place] [phone] Farhana Horn DO [address] [place] [address] Social History Tobacco Use Types Packs/Day Years [...] EDT Office Visit [facility]INE [address] [place] [address] Farhana Horn DO [address] [place] [address] documented as of this encounter Visit Diagnoses Not on filedocumented in this encounter Care Teams Sample Case Porter Relationship Specialty Start Date End Date Farhana Horn DO [address] [place] [address] PCP - General Family Medicine 09/09/18 documented as of this encounter
--- OUTSIDE RECORDS SUMMARY | 2025-01-25 10:45 | XMS_ITS | Encounter Summary ---
Author Organization [employer] Address [address] [place] [address] 7t [place] [address] Care Team Providers Care Recording Engineer Name Role Phone Farhana Horn DO Primary Care Provider [phone] Encounter Details Date Type Department Care Team (Latest Contact Info) Description 10/16/2019 Abstract [facility] CONVERSIONS Dental, Provider, DDS Social History [...] Description 01/29/2025 10:15 AM EDT Office Visit [facility] MEDICINE [address] [place] [address] Farhana Horn DO [address] [place] [address] documented as of this encounter Visit Diagnoses Not on filedocumented in this encounter Care Teams Recording Engineer Relationship Specialty Start Date End Date Farhana Horn DO [address] [place] [address] PCP - General Family Medicine 09/09/18 documented as of this encounter
== END 2025-01-25 10:11 | disposition home or self-care (01) ==
LOC: HO.US 10:10
PROVIDERS: PCP Family Medicine; Visit Provider Urology
DX: N20.0 Calculus of kidney (principal)
CPT/HCPCS: 76775

== ENCOUNTER → 2025-01-25 10:11 | Outpatient (BNV) | payer MEDICAID, SELFPAY | PROVIDERS: PCP Family Medicine; Visit Provider Radiology Vascular & Interventional Radiology | DX: N20.0 Calculus of kidney (principal) | CPT/HCPCS: 76775 ==

== ENCOUNTER 2025-01-29 11:19 | Outpatient (REF) | payer MEDICAID, SELFPAY ==
[2025-01-29 13:30] LABS: MANUAL DIFF FLAG NO
[2025-01-29 13:39] LABS: Basophils Percent Auto 0.5 % (0-2); Eosinophils Absolute Auto 0.2 X10*3/uL (0.0-0.4); Eosinophils Percent Auto 2.3 % (0-4); Hematocrit 39.5 % (37.0-47.0); Hemoglobin 12.8 g/dl (12.0-16.0); Imm Gran Abs Auto 0.02 X10*3/uL (0.00-0.03); Imm Gran Pct Auto 0.3 % (0.0-0.4); Lymphocytes Absolute Auto 3.3 X10*3/uL (1.2-4.9); Lymphocytes Percent Auto 45.6 % (20-40); Mean Corpuscular HGB Conc 32.4 g/dl (31.0-35.0); Mean Corpuscular Hemoglobin 27.6 pg (27.0-33.0); Mean Corpuscular Volume 85.3 fL (80.0-98.0); Mean Platelet Volume 8.5 fL (9.4-12.3); Monocytes Absolute Auto 0.7 X10*3/uL (0.1-1.2); Monocytes Percent Auto 8.9 % (2-11); Neutrophils Absolute Auto 3.1 x10*3/uL (2.0-8.3); Neutrophils Percent Auto 42.4 % (45-73); Platelet Count 345 X10*3/uL (160-400); Red Blood Count 4.63 X10*6/uL (4.20-5.50); Red Cell Distribution Width 13.5 % (11.0-16.0); White Blood Count 7.3 X10*3/uL (4.8-10.8)
[2025-01-29 13:40] LABS: Creatinine Urine 174.41 mg/dL; Microalbum/Creatinine Ratio Ur 6.8 ug/mg cr (<30)
[2025-01-29 14:09] LABS: Alanine Aminotransferase 41 U/L (0-31); Albumin Level 4.2 g/dL (3.5-5.0); Alkaline Phosphatase 130 U/L (39-117); Anion Gap 8 (12-20); Aspartate Amino Transferase 29 U/L (5-31); Bilirubin Direct < 0.2 mg/dL (0.0-0.5); Bilirubin Total 0.1 mg/dL (0.0-1.0); Blood Urea Nitrogen 11 mg/dL (9-16); Calcium 9.3 mg/dL (8.4-10.2); Carbon Dioxide 27 mmol/L (22-29); Chloride 111 mmol/L (96-108); Cholesterol 161 mg/dL (<200); Estimated Glomerular Filt Rate > 60; Glucose Random 96 mg/dL (60-115); HDL Cholesterol 38 mg/dL (>40); LDL Cholesterol Calculated 94 mg/dL (<100); Potassium 4.1 mmol/L (3.3-5.1); Sodium 142 mmol/L (135-145); Total Protein 7.3 g/dL (6.5-8.0); Triglycerides 147 mg/dL (<150)
[2025-01-29 14:16] LABS: Estimated Average Glucose 157 mg/dL; Hemoglobin A1c % 7.1 % (<6.0)
[2025-01-29 14:31] LABS: Free T4 (Free Thyroxine) 0.95 ng/dL (0.71-1.85); Vitamin D 25-OH Total 33.1 ng/mL (>30)
[2025-01-29 14:59] LABS: CT PCR NOT DETECTED (Not Detect.); NG PCR NOT DETECTED (Not Detect.)
[2025-02-01 07:43] LABS: Hepatitis A Antibody IgG Nonreactive (Nonreactive); ~Hepatitis A Antibody IgG 0.21 S/CO (0.00-0.99)
[2025-02-01 08:10] LABS: HBS Num1 4.03 mIU/mL (0-7.99); HBsAGNum1 0.26 S/CO (0.00-0.99); HIV AB/AG Nonreactive (Nonreactive); HIV Num 1 0.05 S/CO (0.00-0.99); Hepatitis B Surface Antigen Negative (Negative); ~HepC Num1 0.12 S/CO (0.00-0.79); ~Hepatitis B Surface Antibody NONREACTIVE (Nonreactive); ~Hepatitis C Antibody Nonreactive (Nonreactive)
[2025-02-02 14:03] LABS: RPR Rapid Plasma Reagin NON-REACTIVE (NON-REACTIVE)
== END 2025-01-29 11:20 | disposition home or self-care (01) ==
LOC: HO.HHCL 11:19
PROVIDERS: Visit Provider Family Medicine
DX: Z00.00 Encounter for general adult medical examination without abnormal findings (principal); R19.8 Other specified symptoms and signs involving the digestive system and abdomen; E27.9 Disorder of adrenal gland, unspecified; N20.0 Calculus of kidney; G47.33 Obstructive sleep apnea (adult) (pediatric); J30.9 Allergic rhinitis, unspecified; K21.9 Gastro-esophageal reflux disease without esophagitis; G43.909 Migraine, unspecified, not intractable, without status migrainosus; F33.9 Major depressive disorder, recurrent, unspecified; E78.49 Other hyperlipidemia; I10 Essential (primary) hypertension; E11.9 Type 2 diabetes mellitus without complications
CPT/HCPCS: 80048; 80061; 80076; 82043; 82306; 82570; 83036; 84439; 84443; 85025; 86592; 86706; 86708; 86803; 87340; 87389; 87491; 87591

== ENCOUNTER 2025-02-04 13:23 | Outpatient (REF) | payer MEDICAID, SELFPAY ==
--- OUTSIDE RECORDS SUMMARY | 2025-02-05 13:33 | XMS_ITS | Encounter Summary ---
Author Organization [employer] Address [address] [place] [address] 7[address] [place] [address] Care Team Providers Care Windmill Technician Name Role Phone KoryFarhana Primary Care Provider + [phone] Encounter Details Date Type Department Care Team ([facility] st Contact Info) Description 12/20/2023 Orders Only [facility] MEDICINE [address] [place] [address] ProviderPantera MD Social History Tobacco Use Types [...] the past 12 months, has t he [employer], gas, oil or water [employer] threatened to shut off services in your [...] documented as of this encounter Care Teams Windmill Technician Relationship Specialty Start Date End Date Farhana Horn DO [address] [place] [address] PCP - General Family Medicine 09/09/18 documented as of this encounter"
[2025-02-05 14:50] LABS: Leukocytes Stool Qualitative NEGATIVE (NEGATIVE)
== END 2025-02-04 13:24 | disposition home or self-care (01) ==
LOC: HO.HHCLNP 13:23
PROVIDERS: Visit Provider Family Medicine
DX: Z00.00 Encounter for general adult medical examination without abnormal findings (principal); E11.9 Type 2 diabetes mellitus without complications; I10 Essential (primary) hypertension; E78.49 Other hyperlipidemia; F33.9 Major depressive disorder, recurrent, unspecified; G43.909 Migraine, unspecified, not intractable, without status migrainosus; K21.9 Gastro-esophageal reflux disease without esophagitis; J30.9 Allergic rhinitis, unspecified; G47.33 Obstructive sleep apnea (adult) (pediatric); N20.0 Calculus of kidney; E27.9 Disorder of adrenal gland, unspecified; R19.8 Other specified symptoms and signs involving the digestive system and abdomen
CPT/HCPCS: 36415; 87507; 89055

== ENCOUNTER 2025-02-07 09:12 | Outpatient (REF) | payer MEDICAID, SELFPAY ==
--- NOTE | ~2025-02-07 | MR_ITS ---
EXAMINATION: MR BRAIN WITHOUT IV CONTRAST HISTORY: worsening headaches TECHNIQUE: Sagittal T1, and axial T1, FLAIR, T2, gradient echo, and diffusion weighted MR images of the brain were obtained. COMPARISON: There are no prior studies available for comparison. FINDINGS: There are scattered periventricular and subcortical white matter hyperintensities on the FLAIR and T2-weighted images which are nonspecific. Natarajan/white differentiation is otherwise normal. There is no mass effect or midline shift. The ventricular system is normal in size and configuration. There is cavum septum pellucidum and cavum septum vergae, normal variants. No intra or extra-axial fluid collections are identified. There are no foci of restricted diffusion. Normal vascular flow voids are noted in the basilar and carotid arteries. There is mucosal thickening and a polyp versus mucous retention cyst in the right maxillary sinus. MR/MR head/brain wo con IMPRESSION: 1. Nonspecific white matter hyperintensities. Differential diagnostic considerations include small vessel ischemic disease, migraine, Lyme disease, vasculitis, and demyelinating disease. 2. Mucosal thickening and a polyp versus mucous retention cyst in the right maxillary sinus. Electronically signed by: Moises Jerez MD 02/08/2025 07:44 AM EDT
== END 2025-02-07 09:13 | disposition home or self-care (01) ==
LOC: HO.MRI 09:12
PROVIDERS: PCP Family Medicine; Visit Provider Family Medicine
DX: G43.909 Migraine, unspecified, not intractable, without status migrainosus (principal)
CPT/HCPCS: 70551

== ENCOUNTER → 2025-02-07 09:18 | Outpatient (BNV) | payer MEDICAID, SELFPAY | PROVIDERS: PCP Family Medicine; Visit Provider Radiology Diagnostic Radiology | DX: R90.82 White matter disease, unspecified (principal); J34.89 Other specified disorders of nose and nasal sinuses | CPT/HCPCS: 70551 ==

== ENCOUNTER → 2025-02-14 19:30 | Outpatient (BNV) | payer MEDICAID, SELFPAY | PROVIDERS: PCP Family Medicine; Visit Provider Internal Medicine | DX: G47.33 Obstructive sleep apnea (adult) (pediatric) (principal) | CPT/HCPCS: 95810 ==

== ENCOUNTER → 2025-02-14 19:30 | Outpatient (REF) | payer MEDICAID, SELFPAY | LOC: HO.SL 19:30 | PROVIDERS: PCP Family Medicine; Visit Provider Family Medicine | DX: G47.33 Obstructive sleep apnea (adult) (pediatric) (principal); G47.61 Periodic limb movement disorder | CPT/HCPCS: 95810 ==

== ENCOUNTER 2025-02-17 10:36 | Outpatient (AMB) | payer MEDICAID, SELFPAY ==
--- NOTE | 2025-02-17 10:38 | A.OFFVIS_ITS ---
Vital Signs 02/17/25 10:39 Height 5 ft 1 in Weight 160 lb 14.999 oz BMI 30.4 BP 128/80 Blood Pressure Location Rt brachial Position Sitting Pulse 62 Pulse Source Pulse Oximeter Oxygen Delivery Method Room Air Intake Visit Reasons: T2DM Intake Note: Patient presents today for a follow-up on Type 2 Diabetes Mellitus: Last Diabetic eye exam was on: DUE Last Podiatry exam was on: Patient does not see a Manager Mental Health? Most recent HbA1c: 7.1%, 01/29/2025 Random Glucose- 109 mg/dL, Today Buyer Broker Required: Yes Buyer Broker Language: Pcb Designer Services: Buyer Broker Offered & Declined Accompanied by: Self / Same As Patient Allergies Penicillins [PENICILLINS] Allergy (Severe, Verified 02/17/25 10:39) RASH dulaglutide [From Trulicity] Adverse Reaction (Mild, Verified 02/17/25 10:39) Abdominal Pain HPI Comments Details: [age] YO female who is seen in f/u for T2DM at the request of GI provider. Hemoglobin A1c 01/29/2025 7.1%, 11/13/2024 6.3%. Initially diagnosed with T2DM 2021 Was initially started on treatment with: metformin: no issues med wasn't refilled Trulicity 0.75 weekly stopped had gi issues Current regimen: None Checks sugars: no meter today am 110 no tests later in the day Reports low sugars: no Most recent A1C 6.3, down from prior 7.6 % on 07/26/23. Family history of T2DM in mother and father Has eyes checked yearly, last eye exam 11/03, one eye small change not related to retinopathy. Denies neuropathy, on gabapentin for back related issues, last foot exam today in the office, Does not see podiatry. No nephropathy, not on julio inhibitor 10/03 eGFR>60 microalbumin 14.0 2022 ua +prot 30 10/03 in ER [Has] HLD, on [statin]. Last LDL [] as measured on []. [Denies] CAD. She is followed by GI for GERD, esophageal dysmotility, IBS, chronic idiopathic diarrhea Diet: She reports she does not have much appetite. She is in the midst of a GI workup, Does not eat an excessive amount of sweets and has small portion Weight: weight up 2 pounds Has not had diabetes education. She saw the highway worker 3 months ago who recommended: Gradually increase fiber Continue having 3 meals /day watching total carb intake : 45 -60 g at meal time Try soups with eggs or chcken or tuna with potatoes or sweet potatoes Try diluting juices with water to reduce amount of sugar PFSH Medical History Type 2 diabetes mellitus Diverticulosis Renal calculi Gastric varices Migraine headache Depression GERD (gastroesophageal reflux disease) Diabetes mellitus Adrenal nodule IBS (irritable bowel syndrome) HTN (hypertension) Hyperlipemia Surgical History History of surgery History of esophagogastroduodenoscopy (EGD) Hx of colonoscopy Hx of tubal ligation Hx of discectomy Family History Father Hx of type 1 diabetes mellitus History of epilepsy Mother Family history of high blood pressure Hx of cancer of uterus Social History Household Members Other:: daughter Housing: House Alcohol intake: never Patient Tobacco Use Status: Never used Tobacco Current occupational status: employed 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 Absence of acromegalic features. Neck exam reveals nl size thyroid about 15 gms. No thyroid nodules palpable. Heart S1 S2, Reg R/R. No M/R G. Skin exam reveals absence of vitiligo or acanthosis nigricans. No edema Visual exam of foot performed. No ulcerations or open lesions. No inter digit maceration or fissuring. No onychomycosis, no callouses. Sensation intact to monofilament exam. Vibratory sensation is normal with 128 Hz tuning fork. Pulses positive distally. Results Reviewed Results Reviewed: Laboratory Last Values Glucose (Clinic) 109 mg/dL (60-115) 02/17/25 10:43 Assessment & Plan Assessment & Plan (1) Type 2 diabetes mellitus: Code(s): E11.9 - Type 2 diabetes mellitus without complications Category: Medical Plan: 54-year-old type 2 diabetic with slight increase in A1c from 6.3-7.1%. We will start metformin once daily. She is now testing her sugars and was advised that her targets are less than 130 in the morning less than 182 hours after meals. Can test once daily alternating between these 2 timeframes. Due to her multiple GI comorbidities, would not recommend a trial of Mounjaro or Ozempic as she did not tolerate Trulicity. Recommended adding several minutes of walking in the evening which study has shown is known to reduce the sugars overnight. The patient had an opportunity to ask questions regarding treatment plan. The patient expressed understanding and agreement with the above treatment plan. The patient is aware they should contact our office by phone for worsening glucose readings or for any low blood sugars which may warrant a change in diabetes medication. Compliance is encouraged with medications and any followup testing/consults which may have been ordered. Medications: New metformin 500 mg PO DAILY 30 days 30 tabs 6RF Patient Instructions: Check your feet daily looking for any signs of infection, drainage, redness, ulceration and seek medical attention if this occurs. Break in shoes gradually and do not wear open-toed shoes or walk stocking footed or barefooted. Follow dietary recommendation Coding Level of Care Code New Pt Level 3 (07659) Complex EM visit Add On G2211 Diagnoses Type 2 diabetes mellitus E11.9 Time Spent (min) 20 Comment Time spent reviewing labs/provider notes, face to face, chart doc
[2025-02-17 10:39] VITALS: BP 128/80; PULSE 62; BMI 30.4
[2025-02-17 10:46] LABS: Glucose, Whole Blood 109 mg/dL (60-115)
--- OUTSIDE RECORDS SUMMARY | 2025-02-17 12:04 | XMS_ITS | Encounter Summary ---
Author Organization [employer] Address [address] [place] [address] 7[address] [place] [address] Care Team Providers Care Sales Contract Administrator Name Role Phone Kory Farhana Primary Care Provider + [phone] Encounter Details Date Type Department Care Team ([facility] st Contact Info) Description 12/20/2023 Orders Only [facility] MEDICINE [address] [place] [address] ProviderPantera MD Social History Tobacco Use Types [...] the past 12 months, has t he [employer], gas, oil or water [employer] threatened to shut off services in your [...] documented as of this encounter Care Teams Sales Contract Administrator Relationship Specialty Start Date End Date Farhana Horn DO [address] [place] [address] PCP - General Family Medicine 09/09/18 documented as of this encounter
== END 2025-02-17 11:13 | disposition home or self-care (01) ==
LOC: HO.ENCR 10:37
PROVIDERS: PCP Family Medicine; Visit Provider Nurse Practitioner Adult Health
DX: E11.9 Type 2 diabetes mellitus without complications (principal)
CPT/HCPCS: 99213

== ENCOUNTER → 2025-02-17 10:36 | Outpatient (BNVA) | payer MEDICAID, SELFPAY | PROVIDERS: PCP Family Medicine; Visit Provider Nurse Practitioner Adult Health | DX: E11.9 Type 2 diabetes mellitus without complications (principal) | CPT/HCPCS: 82947; 99212 ==

== ENCOUNTER 2025-03-02 09:53 | Outpatient (AMB) | payer MEDICAID, SELFPAY ==
--- NOTE | 2025-03-02 10:12 | A.OFFVIS_ITS ---
Intake Visit Reasons: 1y/US(set) Intake Note: Patient presents today for a 1y follow-up/US * Imaging comp. 01/25 Urology Medication: Vitamin B6 Blood Thinner: None Chief Electrician Required: Yes Chief Electrician Services: Chief Electrician Present Chief Electrician Name: Genet [id number] Accompanied by: Self / Same As Patient Allergies Penicillins (PENICILLINS) Allergy (Severe, Verified 03/02/25 10:48) RASH dulaglutide (From Trulicity) Adverse Reaction (Mild, Verified 03/02/25 10:48) Abdominal Pain Medication List - Last Reconciled 03/02/25 by Nunu Ga, TRANSFORMER ASSEMBLY SUPERVISOR- amitriptyline 150 mg PO BEDTIME atorvastatin 20 mg PO DAILY [id number] [id number] mg 1 cap PO Q4H PRN calcium polycarbophil (Fiber-Lax) 625 mg PO BID cetirizine 10 mg PO DAILY gabapentin 300 mg PO lansoprazole 30 mg PO DAILY loratadine 10 mg PO DAILY PRN meclizine 25 mg PO DAILY PRN metformin 500 mg PO DAILY 30 days methylcellulose (laxative) (Citrucel) 500 mg PO DAILY ondansetron 4 mg PO Q8H PRN propranolol ER 120 mg PO DAILY pyridoxine (vitamin B6) 50 mg PO DAILY Saccharomyces boulardii (Probiotic (S.boulardii)) 250 mg PO QAM sucralfate 1 g PO BEDTIME HPI Comments Details: Tri is a very pleasant 54-year-old Gibraltarian-speaking female patient of Dr. Horn. She has a past medical history of type 2 diabetes, diverticulosis, nephrolithiasis, migraines, depression, GERD, IBS, hypertension, and hyperlipidemia. She presents to the office today for follow-up of her nephrolithiasis. Recent renal imaging results were reviewed 01/31 bilateral kidneys are normal in size and echotexture. No hydronephrosis or renal calculi noted bilaterally. Tiny stable benign right renal cyst no follow-up imaging is recommended per radiology report. She currently denies any bothersome urinary issues or concerns. She reports compliance with vitamin B6, adequate hydration, and adding 1 oz of lemon juice to water daily. She denies urinary urgency, urinary frequency, incontinence, nocturia, hematuria, dysuria, foul smelling urine, changes to urinary stream, fever, and or chills. She is happy with her current voiding parameters. She does report intermittent infrequent episodes of right-sided flank pain that are self-limiting. All questions were answered. In office urinalysis results reviewed with the patient today. She otherwise offers no other issues or concerns at this time. PREVIOUS OFFICE NOTE: Nephrolithiasis Longstanding Has had prior intervention with [facility] Intervention - 05/31 left ureteroscopy Imaging - 04/30 ultrasound left hydroureteronephrosis with distal left stone - 07/31 ultrasound 3 mm right - 03/01 renal ultrasound 3 mm right stone - 03/02 renal ultrasound question small stone right but not definitive Concurrent diagnosis includes IBS Therapeutic plan - prior recommendation for times prior to main meal as oxalate binder - imaging follow-up 6 months [facility] Medical History Type 2 diabetes mellitus Diverticulosis Renal calculi Gastric varices Migraine headache Depression GERD (gastroesophageal reflux disease) Diabetes mellitus Adrenal nodule IBS (irritable bowel syndrome) HTN (hypertension) Hyperlipemia Surgical History History of surgery History of esophagogastroduodenoscopy (EGD) Hx of colonoscopy Hx of tubal ligation Hx of discectomy Family History Father Hx of type 1 diabetes mellitus History of epilepsy Mother Family history of high blood pressure Hx of cancer of uterus Social History Household Members Other:: daughter Housing: House Alcohol intake: never Patient Tobacco Use Status: Never used Tobacco Current occupational status: employed 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 occupation: [employer]- right handed Sexual orientation: Straight/Heterosexual Gender identity: Female Female Reproductive History Menstrual Age of Menarche: 10 Review of Systems Const All systems reviewed & are unremarkable except as noted in HPI and below Physical Exam Const General: cooperative, healthy appearing, comfortable, no acute distress, well developed, alert and awake Orientation/consciousness: patient oriented x3 Limitations: language barrier HEENT Head: Yes normal to inspection, Yes normocephalic and Yes atraumatic Ears: hearing grossly normal bilaterally Eyes General: appearance normal, both eyes and all related structures Neck Neck: Yes normal visual inspection and Yes trachea midline Chest Chest palpation & inspection: normal inspection of the chest Resp Effort & Inspection: normal respiratory effort and able to speak in complete sentences Cardio Rate: regular rate GI Inspection: Yes normal to inspection General: Yes no CVA tenderness Back/Spine/Pelvis Back: no CVA tenderness Skin General skin exam: no rashes or lesions noted Neuro General: patient oriented x3 Extrem General: Yes normal to inspection Psych Appearance: grossly normal and well kempt Mental Status: mental status grossly normal Speech and movement: Normal speech and movement present and Clear speech present Affect: normal affect Attitude: cooperative Thought process: Normal thought process present Thought content: Normal thought content present Insight: Fair insight present (Psych) Judgement: Fair judgement present (Psych) Results AMB Urinalysis, Automated UA Leukoctes 0 Patsy/uL Last Edit by Thelma Deng on 03/02/25 10:22 UA Nitrite Negative Last Edit by Thelma Deng on 03/02/25 10:22 UA Urobilinogen 17 mg/dL Last Edit by Thelma Deng on 03/02/25 10:22 UA Protein 1 mg/dL Last Edit by Thelma Deng on 03/02/25 10:22 UA pH 6.0 Last Edit by Thelma Deng on 03/02/25 10:22 UA Blood 0 Chaparro/uL Last Edit by Thelma Deng on 03/02/25 10:22 UA Specific [place] 1.020 Last Edit by Thelma Deng on 03/02/25 10:22 UA Ketone Negative Last Edit by Tehlma Deng on 03/02/25 10:22 UA Bilirubin 0 mg/dL Last Edit by Thelma Deng on 03/02/25 10:22 UA Glucose 0 mg/dL Last Edit by Thelma Deng on 03/02/25 10:22 Results Reviewed Results Reviewed: Laboratory Last Values Urine pH (Auto) 6.0 03/02/25 10:04 Specific [place] (Auto) 1.020 03/02/25 10:04 Urine Protein (Auto) 1 mg/dL 03/02/25 10:04 Glucose (UA)(Auto) 0 mg/dL 03/02/25 10:04 Urine Ketones (Auto) Negative 03/02/25 10:04 Urine Blood (Auto) 0 Chaparro/uL 03/02/25 10:04 Urine Nitrite (Auto) Negative 06/24/25 10:04 Urine Bilirubin (Auto) 0 mg/dL 03/02/25 10:04 Urine Urobilinogen (Auto) 17 mg/dL 03/02/25 10:04 Leukocyte Esterase (Auto) 0 Patsy/uL 03/02/25 10:04 Assessment & Plan Assessment & Plan (1) Renal calculi: Code(s): N20.0 - Calculus of kidney Category: Medical Plan In office urinalysis results with the patient today; as noted above. Recent renal imaging results reviewed with the patient today; as noted above. She currently denies any bothersome urinary issues or concerns. She reports be happy with current voiding parameters. Continue vitamin B6 as discussed and prescribed. Continue drinking plenty of water daily and adding 1 oz of lemon juice to water daily. We discussed the importance of management and diabetes for improvement overall health and well-being. Will continue with surveillance monitoring Will obtain renal ultrasound in 1 year Follow-up in 1 year with imaging to be completed prior; or sooner with any issues, concerns, and or questions. Orders: Orders US renal BI 1 Year N20.0 - Calculus of kidney AMB Urinalysis Automated Today Z13.9 - Encounter for screening, unspecified Patient Instructions: The patient had an opportunity to ask questions regarding the treatment plan. All questions were answered. Physical exam, labs, and imaging were discussed and reviewed in detail. As well as risks, benefits, and discussion of treatment choices. No major barriers to understanding were identified. The patient expressed understanding and agreement with the above treatment plan. The patient was made aware they should contact our office by phone for worsening of their current condition, the appearance of new symptoms, or with any questions or concerns. Compliance is encouraged with any medications and follow up testing that is ordered. It is a privilege to be allowed the opportunity to participate in? your urological care.? Again, if you have any questions or concerns If you have any questions or concerns please do not hesitate to contact me. The office is [phone]. This note is constructed using voice recognition software. While every effort has been made to ensure accuracy form stripper errors may have been included. Yours sincerely, PAUL Paris Coding Level of Care Code Est Pt Level 3 (30561) Complex EM visit Add On G2211 Diagnoses Renal calculi N20.0
--- OUTSIDE RECORDS SUMMARY | 2025-03-02 10:51 | XMS_ITS | Encounter Summary ---
Author Organization [employer] Address [address] [place] [address] [address] [place] [address] Care Team Providers Care Lithographic Retoucher Apprentice Name Role Phone KoryFarhana Primary Care Provider + [phone] Encounter Details Date Type Department Care Team ([facility] st Contact Info) Description 12/20/2023 Orders Only [facility] MEDICINE [address] [place] [address] ProviderPantera MD Social History Tobacco Use Types [...] the past 12 months, has t he [employer], gas, oil or water [employer] threatened to shut off services in your [...] documented as of this encounter Care Teams Lithographic Retoucher Apprentice Relationship Specialty Start Date End Date Farhana Horn DO [address] [place] [address] PCP - General Family Medicine 09/09/18 documented as of this encounter
== END 2025-03-02 11:13 | disposition home or self-care (01) ==
LOC: HO.HUSH 09:54
PROVIDERS: PCP Family Medicine; Visit Provider Nurse Practitioner Family
DX: N20.0 Calculus of kidney (principal); Z13.9 Encounter for screening, unspecified
CPT/HCPCS: 99213

== ENCOUNTER → 2025-03-02 09:53 | Outpatient (BNVA) | payer MEDICAID, SELFPAY | PROVIDERS: PCP Family Medicine; Visit Provider Nurse Practitioner Family | DX: N20.0 Calculus of kidney (principal) | CPT/HCPCS: 81003; 99212 ==

== ENCOUNTER 2025-03-18 | Outpatient (REF) | payer MEDICAID, SELFPAY ==
--- OUTSIDE RECORDS SUMMARY | 2025-03-19 12:03 | XMS_ITS | Encounter Summary ---
Author Organization [employer] Address [address] [place] [address] [address] [place] [address] Care Team Providers Care Wood Heel Fitter Machine Name Role Phone Kory Farhana Primary Care Provider + [phone] Encounter Details Date Type Department Care Team ([facility] st Contact Info) Description 12/20/2023 Orders Only [facility] MEDICINE [address] [place] [address] ProviderPantera MD Social History Tobacco Use Types [...] the past 12 months, has t he [employer], gas, oil or water [employer] threatened to shut off services in your [...] documented as of this encounter Care Teams Wood Heel Fitter Machine Relationship Specialty Start Date End Date Farhana Horn DO [address] [place] [address] PCP - General Family Medicine 09/09/18 documented as of this encounter
[2025-03-19 13:12] LABS: E. coli EAEC Not Detected (Not Detect.); E. coli EPEC Not Detected (Not Detect.); E. coli ETEC Not Detected (Not Detect.); E. coli STEC Not Detected (Not Detect.); Shigella sp./EIEC Not Detected (Not Detect.)
== END 2025-03-18 00:01 | disposition home or self-care (01) ==
LOC: HO.HHCLNP
PROVIDERS: Visit Provider Family Medicine
DX: Z00.00 Encounter for general adult medical examination without abnormal findings (principal); I10 Essential (primary) hypertension; E11.9 Type 2 diabetes mellitus without complications; E27.9 Disorder of adrenal gland, unspecified; E78.49 Other hyperlipidemia; F33.9 Major depressive disorder, recurrent, unspecified; G43.909 Migraine, unspecified, not intractable, without status migrainosus; G47.33 Obstructive sleep apnea (adult) (pediatric); K21.9 Gastro-esophageal reflux disease without esophagitis; N20.0 Calculus of kidney; J30.89 Other allergic rhinitis; R19.8 Other specified symptoms and signs involving the digestive system and abdomen
CPT/HCPCS: 87507

== ENCOUNTER 2025-03-22 10:49 | Outpatient (REF) | payer MEDICAID, SELFPAY ==
--- NOTE | ~2025-03-22 | XR_ITS ---
EXAMINATION: XR FOOT 3 OR MORE VIEWS LEFT, XR ANKLE 3 OR MORE VIEWS LEFT HISTORY: left hand/foot and ankle pain sp fall 2d ago COMPARISON: Comparison is made with the prior examination of the left ankle dated 12/09/2023 and the prior examination of the left foot dated 02/26/2021. FINDINGS: Six views of the left foot and ankle are submitted. Osseous mineralization is normal. There is no fracture or dislocation. The joint spaces are preserved. The soft tissues are unremarkable. XR/XR ankle LT min 3V IMPRESSION: Unremarkable examination of the left foot and ankle. Electronically signed by: Moises Jerez MD 03/22/2025 11:43 AM EDT
--- NOTE | ~2025-03-22 | XR_ITS ---
EXAMINATION: XR FOOT 3 OR MORE VIEWS LEFT, XR ANKLE 3 OR MORE VIEWS LEFT HISTORY: left hand/foot and ankle pain sp fall 2d ago COMPARISON: Comparison is made with the prior examination of the left ankle dated 12/09/2023 and the prior examination of the left foot dated 02/26/2021. FINDINGS: Six views of the left foot and ankle are submitted. Osseous mineralization is normal. There is no fracture or dislocation. The joint spaces are preserved. The soft tissues are unremarkable. XR/XR foot LT min 3V IMPRESSION: Unremarkable examination of the left foot and ankle. Electronically signed by: Moises Jerez MD 03/22/2025 11:43 AM EDT
--- NOTE | ~2025-03-22 | XR_ITS ---
EXAMINATION: XR HAND, LEFT CLINICAL INFORMATION: left hand/foot and ankle pain sp fall 2d ago COMPARISON: None available. TECHNIQUE: PA, lateral, and oblique views of the left hand. FINDINGS: No fracture, dislocation, or suspicious bone lesion. Normal alignment. 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 Joint spaces otherwise preserved. No soft tissue abnormality. XR/XR hand LT min 3V IMPRESSION: No acute bony abnormalities of the left hand/wrist. Electronically signed by: Joel Godoy MD 03/22/2025 11:37 AM EDT
--- OUTSIDE RECORDS SUMMARY | 2025-03-22 11:46 | XMS_ITS | Encounter Summary ---
Author Organization [employer] Address [address] [place] [address] [address] [place] [address] Care Team Providers Care Display Designer Outside Name Role Phone Kory Farhana Primary Care Provider + [phone] Encounter Details Date Type Department Care Team ([facility] st Contact Info) Description 12/20/2023 Orders Only [facility] MEDICINE [address] [place] [address] ProviderPantera MD Social History Tobacco Use Types [...] the past 12 months, has t he [employer], gas, oil or water [employer] threatened to shut off services in your [...] as of this encounter Care Teams Display Designer Outside Relationship Specialty Start Date End Date Farhana Horn DO [address] [place] [address] PCP - General Family Medicine 09/09/18 documented as of this encounter
== END 2025-03-22 10:50 | disposition home or self-care (01) ==
LOC: HO.HHCX 10:49
PROVIDERS: Visit Provider Internal Medicine
DX: M79.642 Pain in left hand (principal); M79.672 Pain in left foot; S93.402A Sprain of unspecified ligament of left ankle, initial encounter; W19.XXXA Unspecified fall, initial encounter; Y92.009 Unspecified place in unspecified non-institutional (private) residence as the place of occurrence of the external cause
CPT/HCPCS: 73130; 73610; 73630

== ENCOUNTER → 2025-03-22 10:49 | Outpatient (BNV) | payer MEDICAID, SELFPAY | PROVIDERS: Visit Provider Radiology Diagnostic Radiology | DX: M79.642 Pain in left hand (principal); M25.572 Pain in left ankle and joints of left foot; W19.XXXA Unspecified fall, initial encounter | CPT/HCPCS: 73130; 73610; 73630 ==

== ENCOUNTER 2025-04-21 11:09 | Outpatient (AMB) | payer MEDICAID, SELFPAY ==
--- NOTE | 2025-04-21 11:12 | A.OFFVIS_ITS ---
Vital Signs 04/21/25 11:21 Height 5 ft 1 in Weight 159 lb BMI 30.0 BP 138/74 Blood Pressure Location Rt brachial Position Sitting Pulse 66 Pulse Source Pulse Oximeter Pulse Oximetry (%) 99 Oxygen Delivery Method Room Air Intake Visit Reasons: 6 MO F/U Intake Note: ESTABLISHED PATIENT for dysphagia, GERD, constipation mgmt. Pt attended endo appt 11/13 as referred. Chief Complaint; C.O. nausea + abd pain (generalized). Pt also reports having frequent BMs and diarrhea intermittently. Pt is having difficulty with her migraines lately and is not eating her normal diet as a result. Pt is not sure if this is more directly correlated with her migraines or if it is something else. Hydro Generation Manager Required: Yes Hydro Generation Manager Services: Hydro Generation Manager Offered & Declined Accompanied by: Self / Same As Patient Allergies Penicillins (PENICILLINS) Allergy (Severe, Verified 03/02/25 10:48) RASH dulaglutide (From Trulicity) Adverse Reaction (Mild, Verified 03/02/25 10:48) Abdominal Pain HPI HPI 6 MO F/U: Details: LAST VISIT: GERD (gastroesophageal reflux disease) IBS (irritable bowel syndrome) Diverticulosis Chronic idiopathic constipation Dysphagia Dyspepsia Postprandial epigastric pain Plan Discussed with patient the importance of avoiding dietary triggers and late night snacking. Staying upright for minimum 3 hours after meals discussed with patient. Patient will tried limb and cane the to help increase Salvation and hopefully clear her salivary glands. Increase fluid intake and activity to promote better bowel motility. Will change Nexium to lansoprazole. Patient is status post cholecystectomy, possible bile reflux. If this will help we will order bile salts agent binder like welchol or cholestyramine. Will send her script for Zofran for nausea. Patient will return in the office in 2 months, sooner on as needed basis. She is agreeable to this plan and verbalizes understanding of instructions. She was given the opportunity to ask questions and all questions answered. ? Thank you for allowing me to participate in her care New lansoprazole 30 mg PO DAILY 30 caps 3RF K21.9 ondansetron 4 mg PO Q8H PRN 20 tabs 0RF nausea and vomiting R11.0 Discontinued esomeprazole magnesium (Nexium) Discontinued Reason: Doctor's Order 40 mg PO DAILY 90 caps 3RF K21.9 TODAY'S VISIT Patient is here today for follow-up. Patient reports ports that she has been doing well. However in the car last couple weeks she has been having increase bowel movements and nausea. Patient reports usually having migraine headaches coming along with nausea. States that she had MRI done by her neurologist and is being referred for 2nd opinion to [facility]. She has appointment with them May 12. Patient reports that her migraines are becoming worse. She reports that acid reflux has been controlled for the most part. She is moving her bowels better. Uses fiber, however occasionally she will have postprandial diarrhea. Patient denies melena, hematochezia, unintentional weight loss or ribbon like stools. Patient denies any dyspepsia, dysphagia or odynophagia PFSH Medical History Type 2 diabetes mellitus Diverticulosis Renal calculi Gastric varices Migraine headache Depression GERD (gastroesophageal reflux disease) Diabetes mellitus Adrenal nodule IBS (irritable bowel syndrome) HTN (hypertension) Hyperlipemia Surgical History History of surgery History of esophagogastroduodenoscopy (EGD) Hx of colonoscopy Hx of tubal ligation Hx of discectomy Family History Father Hx of type 1 diabetes mellitus History of epilepsy Mother Family history of high blood pressure Hx of cancer of uterus Social History Household Members Other:: daughter Housing: House Alcohol intake: never Patient Tobacco Use Status: Never used Tobacco Current occupational status: employed Current occupation: [employer]- [employer]- right handed Sexual orientation: Straight/Heterosexual Gender identity: Female Female Reproductive History Menstrual Age of Menarche: 10 Review of Systems Const Denies weight gain and Denies weight loss ENT Reports no additional complaints, Denies dysphagia and Denies odynophagia Card Reports no additional complaints Resp Reports no additional complaints GI Reports abdominal pain (Epigastric), Denies belching, Denies melena, Reports bloating, Denies change in bowel habits, Denies constipation, Denies dysphagia, Denies excessive flatus, Denies dyspepsia, Reports heartburn, Denies diarrhea, Denies loose stools, Reports nausea, Denies odynophagia and Denies vomiting Reports no additional complaints Musc Reports no additional complaints Neuro Reports no additional complaints Psych Reports no additional complaints Endo Reports no additional complaints Physical Exam Vital Signs: Last Vital Signs Pulse 66 04/21/25 11:21 BP 138/74 04/21/25 11:21 Pulse Ox 99 04/21/25 11:21 Oxygen Delivery Method Room Air 04/21/25 11:21 BMI result Body Mass Index 30.0 Const General: healthy appearing and no acute distress Nutritional Appearance: obese Orientation/consciousness: patient oriented x3 Resp Effort & Inspection: normal respiratory effort, able to speak in complete sentences, no tracheal deviation and symmetric chest movement Auscultation: clear to auscultation bilaterally Cardio Rate: regular rate GI Inspection: Yes normal to inspection, No distended and Yes obesity Palpation (GI): Soft to palpation, not firm, nontender and No hepatosplenomegaly present Auscultation: normal bowel sounds General: Yes no CVA tenderness Back/Spine/Pelvis Back: no CVA tenderness Skin General skin exam: elasticity normal, turgor normal and dry skin Neuro General: patient oriented x3 Psych Appearance: grossly normal Mental Status: mental status grossly normal Results Reviewed Results Reviewed: BRAIN MRI IMPRESSION: 1. Nonspecific white matter hyperintensities. Differential diagnostic considerations include small vessel ischemic disease, migraine, Lyme disease, vasculitis, and demyelinating disease. 2. Mucosal thickening and a polyp versus mucous retention cyst in the right maxillary sinus. Assessment & Plan Assessment & Plan (1) GERD (gastroesophageal reflux disease): Code(s): K21.9 - Gastro-esophageal reflux disease without esophagitis Category: Medical Qualifiers: Esophagitis presence: without esophagitis Qualified Code(s): K21.9 - Gastro-esophageal reflux disease without esophagitis (2) IBS (irritable bowel syndrome): Code(s): K58.9 - Irritable bowel syndrome, unspecified Category: Medical Qualifiers: Irritable bowel syndrome type: with constipation Qualified Code(s): K58.1 - Irritable bowel syndrome with constipation (3) Diverticulosis: Code(s): K57.90 - Diverticulosis of intestine, part unspecified, without perforation or abscess without bleeding Category: Medical Plan Patient will continue lansoprazole in the morning and sucralfate at bedtime. Increase fluid intake and activity to promote better bowel motility. Avoid dietary triggers late night snacking. Staying upright for minimal 3 hours discussed with patient. Patient will call neurologist office to see if she can get in sooner. Patient will follow-up with us in 3 months. She was encouraged to call our office if her symptoms will get worse. She is agreeable to this plan and verbalizes understanding of instructions. She was given the opportunity to ask questions and all questions answered. Thank you for allowing me to participate in her care Medications: Refilled lansoprazole 30 mg PO DAILY 90 caps 3RF K21.9 - Gastro-esophageal reflux disease without esophagitis ondansetron 4 mg PO Q8H PRN 20 tabs 0RF nausea and vomiting R11.0 - Nausea sucralfate 1 g PO BEDTIME 90 tabs 3RF K21.9 - Gastro-esophageal reflux disease without esophagitis, K29.81 - Duodenitis with bleeding Coding Level of Care Code Est Pt Level 4 (10572) Diagnoses Gastroesophageal reflux disease without esophagitis K21.9 Esophagitis presence: without esophagitis Irritable bowel syndrome with constipation K58.1 Irritable bowel syndrome type: with constipation Diverticulosis K57.90 Time Spent (min) 40 Comment 25 minute spent with patient and additional 15 minutes spent reviewing her records
[2025-04-21 11:21] VITALS: BP 138/74; PULSE 66; O2SAT 99
--- OUTSIDE RECORDS SUMMARY | 2025-04-21 12:10 | XMS_ITS | Encounter Summary ---
Author Organization [employer] Address [address] [place] [address] [address] [place] [address] Care Team Providers Care Radiophone Operator Name Role Phone KoryFarhana Primary Care Provider + [phone] Encounter Details Date Type Department Care Team ([facility] st Contact Info) Description 12/20/2023 Orders Only [facility] MED[facility]INE [address] [place] [address] ProviderPantera MD Social History Tobacco Use Types [...] the past 12 months, has t he [employer], gas, oil or water [employer] threatened to shut off services in your [...] Care Team (Late st Contact Info) Description 05/31/2025 11:15 AM EDT Office Visit [facility] MED[facility] [address] [place] [address] Yasmin Elkins MD [address] [place] [address] documented as of this encounter Procedures Procedure [...] documented as of this encounter Care Teams Radiophone Operator Relationship Specialty Start Date End Date Farhana Horn DO [address] [place] [id number] PCP - General Family Medicine 09/09/18 documented as of this encounter
--- OUTSIDE RECORDS SUMMARY | 2025-04-21 12:10 | XMS_ITS | Clinical Summary ---
Author Organization [facility] Address [address] [facility] [address] [place] [phone] Phone Care Team Providers Care Campaign Consultant Name Role Phone Farhana Horn Primary Care Provider [phone] Allergies Active Allergy Reactions Criticality Noted Date Comments Penicillins 01/15/2018 Medications senna (SENOKOT) 8.6 mg tablet Active gabapentin (NEURONTIN) 100 MG capsule Active sertraline (ZOLOFT) 100 MG tablet Active docusate (COLACE) 100 mg tablet Active baclofen (LIORESAL) 10 MG tablet Active simvastatin (ZOCOR) 10 MG tablet Active amitriptyline (ELAVIL) 100 MG tablet Active loratadine (CLARITIN) 10 mg tablet Active traMADol (ULTRAM) 50 mg tablet Active omeprazole (PRILOSEC) 20 mg TbEC Active propranolol (INDERAL) 10 MG immediate release tablet Activ e albuterol 90 mcg/actuation inhaler Inhale 2 puffs into the lungs every 6 (six) hours as needed for wheezing. 1 Inhaler 01/15/2018 Active inhaler spacing device (AEROCHAMBER,LORRAINE ATHERITE) Spcr Inhale 2 each into the lungs 4 (four) times a day as needed. 1 each 01/15/2018 Active Social History Tobacco Use Types Packs/Day Years Used Date Smoking Tobacco: Never Smokeless Tobacco: Never Alcohol Use Standard Drinks/Week Comments No 0 (1 standard drink = 0.6 oz pur e alcohol) Education Answer Date Recorded Are you interested in more education? Not on terence e 01/04/2023 Are you concerned about learning? Not on file 01/04/2023 No 01/04/2023 No 01/04/2023 Comments Unknown Sex and Gender Information Value Date Recorded Sex Assigned at Not on file Legal Sex Female 7:59 PM EDT Gender Identity Not on file Sexual Orientation Not on file Last Filed Vital Signs Vital Sign Reading Time Taken Comments Blood Pressure 121/76 01/15/2018 8:02 PM EDT Pulse 77 01/15/2018 9:25 PM EDT Temperature 36.1 C (96.9 F) 01/15/2018 8:02 PM EDT Respiratory Rate 20 01/15/2018 9:33 PM EDT Oxygen Saturation 95% 01/15/2018 9:25 PM EDT Inhaled Oxygen Concentration - - Weight 69.4 kg (153 lb) 01/15/2018 8:02 PM EDT Height - - Body Mass Index - - Plan of Treatment Not on file Medical Devices Not on file [place] [address] [address] [place] [address] NON NSPG PCP [facility] [address] [place] [address] NON [place]SPG PCP [facility] [place] NON NSPG PCP S[facility] NON NSPG PCP [facility] NON NSPG PCP [facility] NON NSPG PCP [facility] NON NSPG PCP S[facility] NON NSPG PCP S[facility] NON NSPG PCP [facility] Care Teams Campaign Consultant Relationship Specialty Start Date End Date Farhana Horn DO [address] [place] [id number] PCP - General Family Medicine 01/15/18 Additional Source Comments The information contained in this document represents components of the legal health record. It is not the complete legal health record.[facility]
== END 2025-04-21 11:55 | disposition home or self-care (01) ==
LOC: HO.HGI 11:10
PROVIDERS: PCP Family Medicine; Visit Provider Nurse Practitioner Family
DX: K21.9 Gastro-esophageal reflux disease without esophagitis (principal); K58.1 Irritable bowel syndrome with constipation; K57.90 Diverticulosis of intestine, part unspecified, without perforation or abscess without bleeding
CPT/HCPCS: 99214

== ENCOUNTER → 2025-04-21 11:09 | Outpatient (BNVA) | payer MEDICAID, SELFPAY | PROVIDERS: PCP Family Medicine; Visit Provider Nurse Practitioner Family | DX: K21.9 Gastro-esophageal reflux disease without esophagitis (principal); K58.1 Irritable bowel syndrome with constipation; K57.90 Diverticulosis of intestine, part unspecified, without perforation or abscess without bleeding; K29.81 Duodenitis with bleeding | CPT/HCPCS: 99212 ==

== ENCOUNTER 2025-04-27 13:14 | Outpatient (REF) | payer MEDICAID, SELFPAY ==
--- OUTSIDE RECORDS SUMMARY | 2025-04-27 14:25 | XMS_ITS | Clinical Summary ---
Author Organization [facility] Address [address] [facility] [address] [place] [phone] Phone Care Team Providers Care Sign Maker Name Role Phone Farhana Horn Primary Care Provider [phone] Allergies Active Allergy Reactions Criticality Noted Date [...] file Medical Devices Not on file [place] [address] NON NSPG PCP [facility] [place] [place] [address] NON NSPG PCP [facility] NON NSPG PCP [facility] NON NSPG PCP [facility] NON NSPG PCP [facility] NON NSPG PCP [facility] [employer] NON NSPG PCP [facility] NON NSPG PCP S[facility] NON NSPG PCP [facility] Care Teams Sign Maker Relationship Specialty Start Date End Date Farhana Horn DO [address] [place] [id number] PCP - General Family Medicine 01/15/18 Additional Source Comments The information contained in this document represents components of the legal health record. It is not the complete legal health record.[facility]
--- OUTSIDE RECORDS SUMMARY | 2025-04-27 14:25 | XMS_ITS | Encounter Summary ---
Author Organization [employer] Address [address] [place] [address] [address] [place] [address] Care Team Providers Care Grease Remover Name Role Phone KoryFarhana Primary Care Provider + [phone] Encounter Details Date Type Department Care Team ([facility] st Contact Info) Description 12/20/2023 Orders Only [facility] MEDICINE [address] [place] [address] ProviderPantera MD Social History Tobacco Use Types [...] the past 12 months, has t he [employer], gas, oil or water [employer] threatened to shut off services in your [...] documented as of this encounter Care Teams Grease Remover Relationship Specialty Start Date End Date Farhana Horn DO [address] [place] [address] PCP - General Family Medicine 09/09/18 documented as of this encounter
[2025-04-27 16:34] LABS: Hematocrit 39.0 % (37.0-47.0); Hemoglobin 12.6 g/dl (12.0-16.0); Mean Corpuscular HGB Conc 32.3 g/dl (31.0-35.0); Mean Corpuscular Hemoglobin 27.4 pg (27.0-33.0); Mean Corpuscular Volume 84.8 fL (80.0-98.0); NRBC Abs Auto 0.000 X10*3/uL (0.0-0.012); NRBC Pct Auto 0.0 /100WBC (0.0-0.2); Platelet Count 329 X10*3/uL (160-400); Red Blood Count 4.60 X10*6/uL (4.20-5.50); White Blood Count 8.1 X10*3/uL (4.8-10.8)
[2025-04-27 16:37] LABS: Hemoglobin A1C 181.5056 umol/L; Total Hemoglobin (HGBA1C) 3400.8847 umol/L
[2025-04-27 16:54] LABS: Alanine Aminotransferase 44 U/L (0-31); Albumin Level 4.3 g/dL (3.5-5.0); Alkaline Phosphatase 130 U/L (39-117); Anion Gap 12 (12-20); Aspartate Amino Transferase 35 U/L (5-31); Blood Urea Nitrogen 13 mg/dL (9-16); Calcium 9.2 mg/dL (8.4-10.2); Carbon Dioxide 26 mmol/L (22-29); Chloride 106 mmol/L (96-108); Cholesterol 137 mg/dL (<200); Estimated Glomerular Filt Rate > 60; HDL Cholesterol 35 mg/dL (>40); Potassium 3.9 mmol/L (3.3-5.1); Sodium 140 mmol/L (135-145); Total Protein 7.3 g/dL (6.5-8.0); Triglycerides 134 mg/dL (<150)
[2025-04-27 17:17] LABS: Free T4 (Free Thyroxine) 1.01 ng/dL (0.71-1.85); Thyroid Stimulating Hormone 1.49 uIU/mL (0.32-4.0)
[2025-04-28 07:18] LABS: Lyme Abs Screen <0.90 index
[2025-04-30 10:54] LABS: Anti Nuclear Antibody Screen NEGATIVE (NEGATIVE)
== END 2025-04-27 13:15 | disposition home or self-care (01) ==
LOC: HO.HHCL 13:14
PROVIDERS: PCP Family Medicine; Visit Provider Family Medicine
DX: Z00.00 Encounter for general adult medical examination without abnormal findings (principal); G47.33 Obstructive sleep apnea (adult) (pediatric); E11.9 Type 2 diabetes mellitus without complications; I10 Essential (primary) hypertension; E78.49 Other hyperlipidemia; F33.9 Major depressive disorder, recurrent, unspecified; G43.909 Migraine, unspecified, not intractable, without status migrainosus; K21.9 Gastro-esophageal reflux disease without esophagitis; N20.0 Calculus of kidney; E27.9 Disorder of adrenal gland, unspecified; R06.09 Other forms of dyspnea; G47.8 Other sleep disorders; G47.61 Periodic limb movement disorder; G47.34 Idiopathic sleep related nonobstructive alveolar hypoventilation; J31.0 Chronic rhinitis; R91.1 Solitary pulmonary nodule; Z71.82 Exercise counseling; Z71.3 Dietary counseling and surveillance
CPT/HCPCS: 36415; 80048; 80061; 80076; 82306; 83036; 84439; 84443; 85027; 85652; 86038; 86140; 86431; 86617; 86618; 99202

== ENCOUNTER 2025-04-27 14:10 | Outpatient (AMB) | payer MEDICAID, SELFPAY ==
[2025-04-27 14:16] VITALS: BP 110/82; PULSE 72; O2SAT 95; BMI 30.2
--- NOTE | 2025-04-27 14:16 | A.OFFVIS_ITS ---
Vital Signs 04/27/25 14:16 Height 5 ft 1 in Weight 159 lb 13.362 oz BMI 30.2 BP 110/82 Blood Pressure Location Lt brachial Position Sitting Pulse 72 Pulse Source Pulse Oximeter Pulse Oximetry (%) 95 Oxygen Delivery Method Room Air Intake Visit Reasons: Hypoxia Accompanied by: Self / Same As Patient Allergies Penicillins (PENICILLINS) Allergy (Severe, Verified 04/27/25 14:20) RASH dulaglutide (From Trulicity) Adverse Reaction (Mild, Verified 04/27/25 14:20) Abdominal Pain HPI Comments Details: The patient is here for pulmonary evaluation. The patient is a 54 year woman with known history obstructive sleep apnea in addition to headaches. She had been having more headaches recently. He has been on CPAP. The CPAP therapy has been affecting beneficial since 2019 when she was initially diagnosed with a sleep study. Appeared that she had a REM related sleep disorder in addition to significant periodic limb movements. He was she was placed on CPAP through [facility]. I do not have access to the current settings on the CPAP machine. We will request an air view access to be able to adjust the machine accordingly. The patient ultimately started having worsening symptoms of headaches and also difficulty tolerating the the CPAP and she was sent for repeat study. The repeat studies she just had couple months ago. I did review. During the hip mg part she had minimal REM sleep and therefore not significant sleep apnea. She was hypoxic during the study. I do believe that based on the fact that she has a REM related sleep disorder the fact that she did not have any significant REM sleep during the 2nd study this made it nondiagnostic. I do believe the patient does benefit from her CPAP. Will just have to adjust the CPAP accordingly. Once I get access to air view we can go ahead and check her response to therapy and adjust the machine. Once she can not tolerate the CPAP we can request an overnight oximetry to make sure that she does not need oxygen with it. The patient also has periodic limb movements. She has already beyond Neurontin. I do believe the higher dose can help mitigate those symptoms. The patient also complains of dyspnea on exertion. Apparently back in October the patient did have a CT scan of the chest which I personally reviewed. She does have a 6 mm ill-defined pulmonary nodule in the left hemithorax that will need follow-up. The patient will also need pulmonary function studies. [facility] Medical History (Updated 04/27/25 @ 21:01 by Randal Stone MD) Pulmonary nodule Chronic rhinitis Dyspnea Nocturnal hypoxia Periodic limb movement sleep disorder Abnormal REM sleep CARLOS (obstructive sleep apnea) Type 2 diabetes mellitus Diverticulosis Renal calculi Gastric varices Migraine headache Depression GERD (gastroesophageal reflux disease) Diabetes mellitus Adrenal nodule IBS (irritable bowel syndrome) HTN (hypertension) Hyperlipemia Surgical History History of surgery History of esophagogastroduodenoscopy (EGD) Hx of colonoscopy Hx of tubal ligation Hx of discectomy Family History Father Hx of type 1 diabetes mellitus History of epilepsy Mother Family history of high blood pressure Hx of cancer of uterus Social History Household Members Other:: daughter Housing: House Alcohol intake: never Patient Tobacco Use Status: Never used Tobacco Current occupational status: employed 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 Sexual orientation: Straight/Heterosexual Gender identity: Female Female Reproductive History Menstrual Age of Menarche: 10 Review of Systems Const Reports headache(s), Denies weight gain and Denies weight loss Eyes Reports no additional complaints ENT Reports no additional complaints, Reports headache(s), Reports sinus pain and Reports sinus pressure Card Reports no additional complaints and Reports dyspnea on exertion Resp Reports dyspnea on exertion GI Reports abdominal pain (Epigastric) Reports no additional complaints Musc Reports no additional complaints Neuro Reports no additional complaints and Reports headache(s) Psych Reports no additional complaints Endo Reports no additional complaints Physical Exam Vital Signs: Last Vital Signs Pulse 72 04/27/25 14:16 BP 110/82 04/27/25 14:16 Pulse Ox 95 04/27/25 14:16 Oxygen Delivery Method Room Air 04/27/25 14:16 BMI result Body Mass Index 30.2 Const General: healthy appearing and no acute distress Nutritional Appearance: obese Orientation/consciousness: patient oriented x3 Chest Chest palpation & inspection: normal inspection of the chest Resp Effort & Inspection: normal respiratory effort, able to speak in complete sentences, no tracheal deviation and symmetric chest movement Auscultation: clear to auscultation bilaterally Cardio Rate: regular rate GI Palpation (GI): Soft to palpation Auscultation: normal bowel sounds General: Yes no CVA tenderness Back/Spine/Pelvis Back: no CVA tenderness Skin General skin exam: elasticity normal, turgor normal and dry skin Neuro General: patient oriented x3 Psych Appearance: grossly normal Mental Status: mental status grossly normal Assessment & Plan Assessment & Plan (1) CARLOS (obstructive sleep apnea): Comment: REM related sleep disorder Code(s): G47.33 - Obstructive sleep apnea (adult) (pediatric) Category: Medical (2) Abnormal REM sleep: Code(s): G47.8 - Other sleep disorders Category: Medical (3) Periodic limb movement sleep disorder: Code(s): G47.61 - Periodic limb movement disorder Category: Medical (4) Nocturnal hypoxia: Code(s): G47.34 - Idiopathic sleep related nonobstructive alveolar hypoventilation Category: Medical (5) Dyspnea: Comment: Interstitial changes at the bases ?aspiration related changes Code(s): R06.00 - Dyspnea, unspecified Category: Medical Qualifiers: Dyspnea type: dyspnea on exertion Qualified Code(s): R06.09 - Other forms of dyspnea (6) Chronic rhinitis: Code(s): J31.0 - Chronic rhinitis Category: Medical (7) Pulmonary nodule: Code(s): R91.1 - Solitary pulmonary nodule Category: Medical Plan continue APAP, need to adjust pressures start fluticasone nasal spray overnight oximetry while on PAP therapy increase gabapentin 400->600mg QHS Repeat CT chest 10/2025 PFTs reflux diet F/U 2-3 months Orders: Orders CT chest wo IV con 09/27/25 R91.1 - Solitary pulmonary nodule PFT pulmonary function test Today R06.09 - Other forms of dyspnea Medications: New fluticasone propionate 50 mcg/actuation 2 sprays intranasal DAILY 15.8 mL 11RF 30 days J31.0 - Chronic rhinitis Changed From gabapentin 300 mg PO To gabapentin 600 mg (2 x 300 mg) PO .QHS 60 caps 5RF 30 days Coding Level of Care Code New Pt Level 5 (73136) Diagnoses CARLOS (obstructive sleep apnea) G47.33 Abnormal REM sleep G47.8 Periodic limb movement sleep disorder G47.61 Nocturnal hypoxia G47.34 Dyspnea on exertion R06.09 Dyspnea type: dyspnea on exertion Chronic rhinitis J31.0 Pulmonary nodule R91.1 Time Spent (min) 60
== END 2025-04-27 14:49 | disposition home or self-care (01) ==
LOC: HO.HPS 14:11
PROVIDERS: PCP Family Medicine; Referring Provider Family Medicine; Visit Provider Hospitalist
DX: G47.33 Obstructive sleep apnea (adult) (pediatric) (principal); G47.8 Other sleep disorders; G47.61 Periodic limb movement disorder; G47.34 Idiopathic sleep related nonobstructive alveolar hypoventilation; R06.09 Other forms of dyspnea; J31.0 Chronic rhinitis; R91.1 Solitary pulmonary nodule
CPT/HCPCS: 99205

== ENCOUNTER 2025-06-15 07:40 | Outpatient (REF) | payer MEDICAID, SELFPAY ==
--- NOTE | 2025-06-15 07:42 | EMG_ITS ---
Chief complaint: Bilateral burning and pain Reason for referral: Bilateral burning and pain Referred by:Farhana Dhaliwal Procedure done: Bilateral upper extremities NCS/EMG Bilateral median and ulnar motor studies were performed bilateral median and ulnar mixed sensory studies were performed, median and lateral antecubital brachial sensory studies were performed radial sensory studies were performed. EMG needle examination was performed. Bilateral ulnar motor nerves studies revealed mild slowing across elbow. Otherwise no significant abnormality was noted. Impression: Mild bilateral ulnar nerve slowing across the cubital tunnel MTDD
--- OUTSIDE RECORDS SUMMARY | 2025-06-15 07:47 | XMS_ITS | Encounter Summary ---
Author Organization [employer] Address [address] [place] [address] [address] [place] [address] Care Team Providers Care Teleprinter Name Role Phone Farhana Horn DO Primary Care Provider + [phone] Encounter Details Date Type Department Care Team ([facility] st Contact Info) Description 08/08/2023 Telephone [facility] MEDICINE [address] [place] [address] Farhana Horn DO [address] [place] [address] Social History Tobacco Use Types Packs/Day Years [...] t he electric, gas, oil or water [employer] threatened to shut off services in your [...] documented as of this encounter Care Teams Teleprinter Relationship Specialty Start Date End Date Farhana Horn DO [address] [place] [address] PCP - General Family Medicine 09/09/18 Tyshawn [employer] Analyst 06/14/25 documented as of this encounter
--- OUTSIDE RECORDS SUMMARY | 2025-06-15 07:47 | XMS_ITS | Clinical Summary ---
Author Organization [employer] Address [address] [place] [address] [address] [place] [address] Care Team Providers Care Full Time Staff Interpreter Name Role Phone LizFarhana key Primary Care Provider + [phone] Allergies Active Allergy Reactions Criticality Noted Date Comments Lisinopril Cough 11/16/2010 Penicillins 09/07/2014 Medications * This document contains information received from the source organization and may not represent a complete record from that organization. amitriptyline (Elavil) 150 MG tablet TOME TIERA TABLETA VIA ORAL AL ACOSTARSE 3 Active senna (Senokot) 8.6 MG tablet TOME DOS TABLETAS VIA ORAL CADA JADYN AL ACOSTARSE 3 Active sucralfate (Carafate) 1 g tablet TOME TIERA TABLETA VIA ORAL AL ACOSTARSE 3 Active propranolol LA (Inderal LA) 120 MG 24 hr capsule TOME TIERA CAPSULA VIA ORAL CADA JADYN 3 Active GAS RELIEF 125 MG capsule TAKE ONE CAPSULE BY MOUTH 2 TO 4 TIMES A DAY NEEDED FOR ABDOMINAL DISTENTION. 3 Active triamcinolone (Kenalog) 0.1 % ointment Apply topically if needed in the morning and at bedtime for rash. 30 g 3 Active Diclofenac Sodium 1 % gelIndications:Keshia n apply (2G) by topical route 2 times every day to the affected area(s) as needed for Pain 100 g 1 3 Active ondansetron (Zofran) 4 MG tablet TOME TIERA TABLETA VIA ORAL CADA 8 HORAS LAMINE SEA NECESARIO PARA LAS NAUSEAS Y LOS VOMITOS 20 tablet 1 11/17/202 3 Active pyridoxine (Vitamin B-6) 100 MG tablet TAKE 1 TABLET BY MOUTH EVERY DAY 90 tablet 1 3 Active Calcium Carb-Cholecalcifer ol 600-10 MG-MCG tabletIndications: Osteopenia, unspecified location Take 1 tablet by mouth 2 times daily. 60 tablet 11 4 Active baclofen (Lioresal) 20 MG tablet take 1 tablet by oral route 3 times every day as needed for MM SPASM/PAIN 60 tablet 5 4 Active gabapentin (Neurontin) 400 MG capsule TAKE ONE CAPSULE BY MOUTH TWICE A DAY AND TAKE TWO CAPSULES AT BEDTIME. 120 capsule 5 5 Active meclizine (Antivert) 25 MG tablet TAKE 1 TABLET BY MOUTH IF NEEDED IN THE MORNING, AT NOON AND AT BEDTIME FOR DIZZINESS 30 tablet 2 5 Active loratadine (Claritin) 10 MG tabletIndications: Seasonal allergic rhinitis, unspecified trigger TAKE ONE TABLET BY MOUTH EVERY DAY IN THE MORNING 90 tablet 3 5 Active bisacodyl (Dulcolax) 5 MG EC tablet Take 10 mg by mouth. 5 Active Citrucel 500 MG tablet TAKE 1 TABLET BY MOUTH DAILY; TAKE IT WITH A FULL GLASS OF WATER. 5 Active cholecalciferol (Vitamin D-3) 50 MCG (2000 UT) capsule Take 1 capsule (50 mcg) by mouth Once per day. 30 capsule 11 5 11/25/19 26 Active atorvastatin (Lipitor) 20 MG tabletIndications: Hyperlipidemia, unspecified hyperlipidemia type TAKE ONE TABLET BY MOUTH DAILY AT BEDTIME 90 tablet 1 5 Active Lancets misc Use to test blood sugar 2 times daily 100 each 5 Active Alcohol Swabs 70 % pads Use to test blood sugar 2 times daily 100 each 11 5 Active Blood Pressure kit 1 each 1 (one) time per week. 1 kit 5 Active Blood Glucose Monitoring Suppl (FreeStyle [place] Lite) w/Device kit Use to test blood sugar 2 times daily 1 kit 5 Active FREESTYLE LITE test strip Use to test blood sugar 2 times daily 100 each 11 5 01/23/20 26 Active gabapentin (Neurontin) 300 MG capsule TOME TIERA CAPSULA VIA ORAL DOS VECES AL JADYN AND TAKE 2 CAPSULES AT BEDTIME DIRECTED 5 Active lansoprazole (Prevacid) [address] capsule TOME TIERA CAPSULA VIA ORAL CADA JADYN 5 Active magnesium oxide (Mag-Ox) 400 MG tablet Take 1 tablet (400 mg) by mouth Once per day. 30 tablet 11 5 01/30/20 26 Active acetaminophen (Tylenol 8 Hour) 650 MG ER tabletIndications: Pain take 1 Tablet by oral route every 8 hours as needed as needed for PAIN AND/OR FEVER 100 tablet 1 5 Active meloxicam (Mobic) 15 MG tablet Take 1 tablet (15 mg) by mouth Once per day. 30 tablet 5 03/22/20 26 Active butalbital-acetami nophen-caffeine 50-325-40 MG tablet Take 1 tablet by mouth every 4 (four) hours if needed for headaches or migraine. 20 tablet 2 5 Active Pain Reliever Plus 250-250-65 MG tablet TAKE ONE TABLET BY MOUTH EVERY 6 HOURS NEEDED FOR HEADACHES FOR UP TO 10 DAYS 30 tablet 5 Active Active Problems Problem Noted Date Diagnosed Date Sprain of left ankle 03/22/2025 Assessment & Plan (03/22/2025 1:07 PM EDT): Status post fall at home, advised to elevate foot and apply ice to affected area at least twice daily. Take meloxicam daily for 1 or 2 weeks + Tylenol breakthrough pain Advised to wear her ankle brace for at least 4 weeks, avoid using flip-flops. Reconsult as needed, may not need PT. Left hand and foot pain 03/22/2025 Assessment & Plan (03/22/2025 1:08 PM EDT): Sister had tendinitis, I immobilize it with left wrist brace which she should use for most ADLs and can loosen up at night to keep using it. Apply ice to affected area take meloxicam and Tylenol as above. Will order x-rays Fall as cause of accidental injury at home as place of occurrence 03/22/2025 Assessment & Plan (03/22/2025 1:09 PM EDT): She did not report foul play or any other associated symptoms Discussed about safety at home, avoid rugs and loose cables Follow-up with PCP Adjustment disorder with depressed mood 11/25/19 Assessment & Plan (11/25/2024 11:32 AM EDT): [...] transition. She completed the intake process with [facility] at [facility] after today's session. clinician will [...] 2023 -pap nml/HPV negative JUL 2020 with DEEP FAT FRY COOK -DEXA with osteopenia JUL 2023 -STI/HIV screen [...] nightly -s/p optho eval Apr 2023 at [facility] -foot exam next visit* Allergic rhinitis [...] -f/u with neurology as scheduled -advised contact [facility] if no improvement Irritable bowel syndrome [...] Encounters Date Type Department Care Team Description 06/14/2025 Telephone [facility] [address] [place] [address] Farhana Horn DO Care Coordination (ICP Care Plan) 05/24/2025 Telephone [facility] [address] [place] [id number] Farhana Horn DO 05/18/[address] [phone] Farhana Horn DO Durable Medical Equipment (DME RX for 24 Hour Pulse Oximetry([facility])) 05/10/[address] [phone] Farhana Horn DO 04/27/2025 11:30 AM EDT Office Visit [address] [address] Farhana Horn DO Type 2 diabetes mellitus without complication, without long-term current use of insulin ([facility]) (Primary Dx); Essential hypertension; Other hyperlipidemia; Major depression, recurrent, chronic ([facility]); Chronic migraine; Chronic gastroesophageal reflux disease; Allergic rhinitis, unspecified seasonality, unspecified trigger; Obstructive sleep apnea; Nephrolithiasis; Adrenal nodule ([facility]); Chronic sinusitis, unspecified location; Abnormal brain MRI; Hypoxia; Paresthesia and pain of both upper extremities; Lung nodule; Healthcare maintenance; Dietary counseling; Exercise counseling 04/27/2025 Travel 04/26/[address] [phone] Farhana Horn DO Chart Prep 04/21/[address] [phone] Farhana Horn DO MRI 04/20/[address] [phone] Farhana Horn DO Nurse Triage 04/08/[address] [address] Farhana Horn DO Imaging letter 04/08/2025 Results Follow-Up [address] [address] Jermaine Pagan MD XR Foot 3+ Views Left 04/07/2025 Orders Only [facility] [address] [place] [phone] Farhana Horn, Hypoxia (Primary Dx) 04/02/2025 Telephone [facility] [address] [place] [phone] Farhana Horn, Results 03/27/2025 Refill [facility] [address] [place] [phone] Farhana Horn, 03/23/[address] [address] Farhana Horn, Results 03/22/2025 10:40 AM EDT Office Visit [facility] [address] [place] [phone] Jermaine Pagan MD Left hand and foot pain (Primary Dx); Fall as cause of accidental injury in home as place of occurrence, initial encounter; Sprain of left hand, initial encounter; Pain 03/22/2025 Travel 03/16/[address] [phone] Farhana Horn DO telephone call from Last 3 Months Immunizations Immunization Administration [...] Access Q2 Not on file 11/04/2024 Comments No Sex and Gender Information Value Date Recorded Sex Assigned at Female 07/09/2022 10:14 AM EDT Legal Sex Female 10:14 AM EDT Gender Identity Female 07/09/2022 10:14 AM EDT Sexual Orientation Straight 07/09/2022 10 :14 AM EDT Last Filed Vital Signs Vital Sign Reading Time Taken Comments Blood Pressure 128/72 04/27/2025 11:17 AM EDT Pulse 60 04/27/2025 11:17 AM EDT Temperature 36.4 C (97.6 F) 04/27/2025 11:17 AM EDT Respiratory Rate 18 04/27/2025 11:17 AM EDT Oxygen Saturation 96% 04/27/2025 11:17 AM EDT Inhaled Oxygen Concentration - - Weight 73.2 kg (161 lb 6 oz) 04/27/2025 11:17 AM EDT Height 152.4 cm (5') 04/27/2025 11:17 AM EDT Body Mass Index 31.52 04/27/2025 11:17 AM EDT Plan of Treatment Health Maintenance Due Date Last Done Comments CT Colonography 1968 FIT DNA/Cologuard 1968 Sigmoidoscopy 1968 Hepatitis B Vaccines (1 of 3 - 19+ 3-dose series) 1987 11/03/2008, 03/09/2008, 12/30/2007 Colonoscopy 01/28/2024 01/27/2019 Colorectal Cancer Screening 02/05/2025 COVID-19 Vaccine ( season) 2025 07/26/2023, 07/06/2022, 09/12/2021, Additional history exists Influenza Vaccine (#1) 2025 , 07/03/2022, 07/10/2021, Additional history exists Depression Monitoring 05/28/2025 11/25/2024, 025 Diabetes: Hemoglobin A1C 07/28/2025 025, 04/27/2025, 01/29/2025, Additional history exists Mammogram 09/23/2025 09/23/2024, 10/2023, 09/07/2022, Additional history exists Alcohol/Substance Use Screening 11/04/2025 11/04/2024 SDOH Screening 11/05/2025 11/05/2024 Cervical Cancer Screening 12/02/2025 HPV/Cotest 12/02/2025 10/27/2024, 07/11, 08/01/2020, Additional history exists Pap Smear 12/02/2025 10/27/2024 Diabetes: Urine Protein Screening 01/29/2026 01/29/2025, 07/26/2023, 01/25/2021 Disability Screening 01/29/2026 01/29/2025 FIT 02/04/2026 02/04/2025 FOBT 02/04/2026 02/04/2025 Diabetes: Foot Exam 03/22/2026 03/22/2025, 03/22/2025, 03/22/2025, Additional history exists Lipid Panel 04/27/2026 04/27/2025, 01/08, 07/26/2023, Additional history exists Tobacco Screening 04/27/2026 04/27/2025 Eye Exam 10/22/2026 10/22/2024, 10/10, 10/22/2024, Additional history exists DTaP/Tdap/Td Vaccines (4 - Td or Tdap) 02/26/2031 02/26/2021, 07/12/2016, 01/05/2010 RSV Patients and Patients Aged 60 years or older (1 - 1-dose 75+ series) 2043 Zoster Vaccines Completed 11/16/2021, 09/12/2021 Pneumococcal Vaccine: 50+ Years Completed 12/09/2023 Colposcopy Discontinued 12/02/2024 HIV Screening Completed 01/29/2025, 06/11, 08/02/2021, Additional history exists Hepatitis C Screening Completed 01/29/2025 , 07/09/2022, 08/02/2021, Additional history exists HIB Vaccines Aged Out No longer eligi [...] Procedure Name Priority Date/Time Associated Diagnosis Comments AMB REFERRAL TO ENT Routine 05/19/2025 Abnormal finding on MRI of brain C-REACTIVE PROTEIN Routine 04/27/2025 1: 18 PM EDT Type 2 diabetes mellitus without complication, without long-term current use of insulin ([facility]) Essential hypertension Other hyperlipidemia Major depression, recurrent, chronic (CMS/HCC) Chronic migraine Chronic gastroesophageal reflux disease Allergic rhinitis, unspecified seasonality, unspecified trigger Obstructive sleep apnea Nephrolithiasis Adrenal nodule (CMS/HCC) Healthcare maintenance Dietary counseling Exercise counseling SED RATE BY MODIFIED WESTERGREN Routine 04/27/2025 1:18 PM EDT Type 2 diabetes mellitus without complication, without long-term current use of insulin ([facility]/HCC) Essential hypertension Other hyperlipidemia Major depression, recurrent, chronic (CMS/HCC) Chronic migraine Chronic gastroesophageal reflux disease Allergic rhinitis, unspecified seasonality, unspecified trigger Obstructive sleep apnea Nephrolithiasis Adrenal nodule (CMS/HCC) Healthcare maintenance Dietary counseling Exercise counseling RHEUMATOID FACTOR Routine 04/27/2025 1:1 8 PM EDT Type 2 diabetes mellitus without complication, without long-term current use of insulin ([facility]) Essential hypertension Other hyperlipidemia Major depression, recurrent, chronic (CMS/HCC) Chronic migraine Chronic gastroesophageal reflux disease Allergic rhinitis, unspecified seasonality, unspecified trigger Obstructive sleep apnea Nephrolithiasis Adrenal nodule ([facility]/HCC) Healthcare maintenance Dietary counseling Exercise counseling LYME DISEASE AB W/REFL TO BLOT (IGG, IGM) Routine 04/27/2025 1:18 PM EDT Type 2 diabetes mellitus without complication, without long-term current use of insulin ([facility]) Essential hypertension Other hyperlipidemia Major depression, recurrent, chronic (CMS/HCC) Chronic migraine Chronic gastroesophageal reflux disease Allergic rhinitis, unspecified seasonality, unspecified trigger Obstructive sleep apnea Nephrolithiasis Adrenal nodule ([facility]/HCC) Healthcare maintenance Dietary counseling Exercise counseling JERMAINE SCREEN, IFA, W/REFL TITER AND PATTERN Routine 04/27/2025 1:18 PM EDT Type 2 diabetes mellitus without complication, without long-term current use of insulin ([facility]/HCC) Essential hypertension Other hyperlipidemia Major depression, recurrent, chronic (CMS/HCC) Chronic migraine Chronic gastroesophageal reflux disease Allergic rhinitis, unspecified seasonality, unspecified trigger Obstructive sleep apnea Nephrolithiasis Adrenal nodule (CMS/HCC) Healthcare maintenance Dietary counseling Exercise counseling BASIC METABOLIC PANEL Routine 04/27/2025 1:18 PM EDT Type 2 diabetes mellitus without complication, without long-term current use of insulin (CMS/HCC) Essential hypertension Other hyperlipidemia Major depression, recurrent, chronic (CMS/HCC) Chronic migraine Chronic gastroesophageal reflux disease Allergic rhinitis, unspecified seasonality, unspecified trigger Obstructive sleep apnea Nephrolithiasis Adrenal nodule (CMS/HCC) Healthcare maintenance Dietary counseling Exercise counseling CBC Routine 04/27/2025 1:18 PM EDT Type 2 diabetes mellitus without complication, without long-term current use of insulin (CMS/HCC) Essential hypertension Other hyperlipidemia Major depression, recurrent, chronic (CMS/HCC) Chronic migraine Chronic gastroesophageal reflux disease Allergic rhinitis, unspecified seasonality, unspecified trigger Obstructive sleep apnea Nephrolithiasis Adrenal nodule (CMS/HCC) Healthcare maintenance Dietary counseling Exercise counseling HEMOGLOBIN A1C Routine 04/27/2025 1:18 PM EDT Type 2 diabetes mellitus without complication, without long-term current use of insulin (CMS/HCC) Essential hypertension Other hyperlipidemia Major depression, recurrent, chronic (CMS/HCC) Chronic migraine Chronic gastroesophageal reflux disease Allergic rhinitis, unspecified seasonality, unspecified trigger Obstructive sleep apnea Nephrolithiasis Adrenal nodule (CMS/HCC) Healthcare maintenance Dietary counseling Exercise counseling HEPATIC FUNCTION PANEL Routine 1:18 PM EDT Type 2 diabetes mellitus without complication, without long-term current use of insulin (CMS/HCC) Essential hypertension Other hyperlipidemia Major depression, recurrent, chronic (CMS/HCC) Chronic migraine Chronic gastroesophageal reflux disease Allergic rhinitis, unspecified seasonality, unspecified trigger Obstructive sleep apnea Nephrolithiasis Adrenal nodule (CMS/HCC) Healthcare maintenance Dietary counseling Exercise counseling VITAMIN D,25-OH,TOTAL,IA Routine 04/27/2025 1:18 PM EDT Type 2 diabetes mellitus without complication, without long-term current use of insulin (CMS/HCC) Essential hypertension Other hyperlipidemia Major depression, recurrent, chronic (CMS/HCC) Chronic migraine Chronic gastroesophageal reflux disease Allergic rhinitis, unspecified seasonality, unspecified trigger Obstructive sleep apnea Nephrolithiasis Adrenal nodule (CMS/HCC) Healthcare maintenance Dietary counseling Exercise counseling TSH Routine 04/27/2025 1:18 PM EDT Type 2 diabetes mellitus without complication, without long-term current use of insulin (CMS/HCC) Essential hypertension Other hyperlipidemia Major depression, recurrent, chronic (CMS/HCC) Chronic migraine Chronic gastroesophageal reflux disease Allergic rhinitis, unspecified seasonality, unspecified trigger Obstructive sleep apnea Nephrolithiasis Adrenal nodule (CMS/HCC) Healthcare maintenance Dietary counseling Exercise counseling LIPID PANEL, STANDARD Routine 04/27/2025 1:18 PM EDT Type 2 diabetes mellitus without complication, without long-term current use of insulin (CMS/HCC) Essential hypertension Other hyperlipidemia Major depression, recurrent, chronic (CMS/HCC) Chronic migraine Chronic gastroesophageal reflux disease Allergic rhinitis, unspecified seasonality, unspecified trigger Obstructive sleep apnea Nephrolithiasis Adrenal nodule (CMS/HCC) Healthcare maintenance Dietary counseling Exercise counseling T4, FREE Routine 04/27/2025 1:18 PM EDT Type 2 diabetes mellitus without complication, without long-term current use of insulin (CMS/HCC) Essential hypertension Other hyperlipidemia Major depression, recurrent, chronic (CMS/HCC) Chronic migraine Chronic gastroesophageal reflux disease Allergic rhinitis, unspecified seasonality, unspecified trigger Obstructive sleep apnea Nephrolithiasis Adrenal nodule (CMS/HCC) Healthcare maintenance Dietary counseling Exercise counseling POCT GLYCATED HEMOGLOBIN, TOTAL Routine 04/27/2025 11:29 AM EDT Type 2 diabetes mellitus without complication, without long-term current use of insulin (CMS/HCC) POCT GLUCOSE Routine 04/27/2025 11:29 AM EDT Type 2 diabetes mellitus without complication, without long-term current use of insulin (CMS/HCC) XR HAND 3+ VIEWS LEFT Routine 03/22/2025 10:15 AM EDT Left hand and foot pain Fall as cause of accidental injury in home as place of occurrence, initial encounter XR ANKLE 3+ VIEWS LEFT Routine 10:12 AM EDT Sprain of left hand, initial encounter XR FOOT 3+ VIEWS LEFT Routine 03/22/2025 10:10 AM EDT Left hand and foot pain Sprain of left hand, initial encounter GASTROINTESTINAL PANEL Routine 5 4:56 PM EDT Type 2 diabetes mellitus without complication, without long-term current use of insulin (CMS/HCC) Essential hypertension Major depression, recurrent, chronic (CMS/HCC) Chronic migraine Healthcare maintenance Other hyperlipidemia Chronic gastroesophageal reflux disease Allergic rhinitis due to other allergic trigger, unspecified seasonality Rectal discharge Adrenal nodule (CMS/HCC) Nephrolithiasis CARLOS (obstructive sleep apnea) FECAL GLOBIN BY IMMUNOCHEMISTRY Routine 02/04/2025 12:00 AM EDT HEPATITIS C AB W/REFL TO HCV RNA, QN, PCR Routine 01/29/2025 11:23 AM EDT Type 2 diabetes mellitus without complication, without long-term current use of insulin (CMS/HCC) Essential hypertension Other hyperlipidemia Major depression, recurrent, chronic (CMS/HCC) Chronic migraine Chronic gastroesophageal reflux disease Allergic rhinitis, unspecified seasonality, unspecified trigger Obstructive sleep apnea Nephrolithiasis Adrenal nodule (CMS/HCC) Rectal discharge Healthcare maintenance HIV 1/2 ANTIGEN/ANTIBODY, FOURTH GENERATION W/RFL Routine 01/29/2025 11:23 AM EDT Type 2 diabetes mellitus without complication, without long-term current use of insulin (CMS/HCC) Essential hypertension Other hyperlipidemia Major depression, recurrent, chronic (CMS/HCC) Chronic migraine Chronic gastroesophageal reflux disease Allergic rhinitis, unspecified seasonality, unspecified trigger Obstructive sleep apnea Nephrolithiasis Adrenal nodule (CMS/HCC) Rectal discharge Healthcare maintenance ALBUMIN, RANDOM URINE W/CREATININE Routine 01/29/2025 11:23 AM EDT Type 2 diabetes mellitus without complication, without long-term current use of insulin (CMS/HCC) Essential hypertension Other hyperlipidemia Major depression, recurrent, chronic (CMS/HCC) Chronic migraine Chronic gastroesophageal reflux disease Allergic rhinitis, unspecified seasonality, unspecified trigger Obstructive sleep apnea Nephrolithiasis Adrenal nodule (CMS/HCC) Rectal discharge Healthcare maintenance COLPOSCOPY Routine 12/02/2024 12:00 AM EDT HPV DNA, LOW/HIGH RISK Routine 9:07 AM EST PAP SMEAR Routine 10/27/2024 9:07 AM EST BI MAMMOGRAM SCREENING TOMOSYNTHESIS BILATERAL Routine 09/23/2024 10:30 AM EST HM COLONOSCOPY Routine 01/27/2019 8:43 AM EDT from Last 3 Months or Most Recently Relevant to Health Maintenance Results * Referral to ENT (05/19/2025) Farhana Horn DO OUTPATIENT REFERRAL ORDERABL ES Final Result * (ABNORMAL) Vitamin D, 25-Hydroxy, Total, Immunoassay (04/27/2025 1:18 PM EDT) Vitamin D 25-OH Total 27.9(L) >30 ng/mL [facility] Comment: Health Based Reference Values*< 20 ng/mL [id number] ng/mL Insufficient> 30 ng/mL Sufficient*Smooth VEGA. N Engl J Med. 2007;357:266-280There is no well-established upper level of normal vitamin Dlevels. Some laboratories use 50 ng/mL as an upper limit ofnormal. However, toxicity is patient-dependent and may occurat any level. Careful correlation with the patient'spresentation is necessary and, if there is concern forvitamin D toxicity, treatment should be consideredirrespective of the serum level.Care must be taken in interpreting Vitamin D results fromdifferent laboratories and methodologies. Published datademonstrated that results from patients undergoinghemodialysis may show a negative bias when tested withvarious automated 25-OH vitamin D assays when compared toLC-MS/MS.When testing samples from patients whose predominant form ofVitamin D is Vitamin D2, such as patients receiving VitaminD2 supplementation, results that are subtherapeutic shouldbe confirmed with another method such as LC-MS/MS. Blood Venous blood specimen / Unknown 04/27/2025 1:18 PM EDT 04/27/2025 4:17 PM EDT Farhana Horn DO LAB BLOOD ORDERABLES Final R esult Performing Organization Address [facility] Co de Phone Number [facility] [address] [place] [address] [phone] * Lyme Disease Ab with Reflex to Blot (IgG, IgM) (04/27/2025 1:18 PM EDT) Lyme Antibody Screen <0.90 index [facility] Comment:Index Interpretation ----- < 0.90 Negative 0.90-1.09 Equivocal > 1.09 PositiveAs recommended by the Food and Drug Administration(FDA), all samples with positive or equivocalresults in a Borrelia burgdorferi antibody screenwill be tested using a blot method. Positive orequivocal screening test results should not beinterpreted as truly positive until verified as suchusing a supplemental assay (e.g., B. burgdorferi blot).The screening test and/or blot for B. burgdorferiantibodies may be falsely negative in early stagesof Lyme disease, including the period when erythemamigrans is apparent.THIS TEST WAS PERFORMED AT:[facility] [place] [id number] WORKMAN MD Lyme Blot [facility] 04/27/2025 1:18 PM EDT 04/27/2025 4:17 PM EDT Farhana Horn DO LAB BLOOD ORDERABLES Final R esult Performing Organization Address [facility] Co de Phone Number [facility] [address] [place] [address] [phone] * (ABNORMAL) Sed Rate by Modified Andersonren (04/27/2025 1:18 PM EDT) Pathologist [facility] Erythrocyte Sedimentation Rate 23(H) 0 - 20 MM/HR [facility] Comment:Patients with polycy themia and many hemoglobin abnormalitiesmay have depressed sed rates whereas patients with anemiamay have elevated sed rates. Blood Venous blood specimen / Unknown 04/27/2025 1:18 PM EDT 04/27/2025 4:17 PM EDT us Farhana Horn DO LAB BLOOD ORDERABLES Final R esult Performing Organization Address City/[facility]/ZIP Co de Phone Number [facility] [facility] [address] [place] [phone] * (ABNORMAL) CBC (04/27/2025 1:18 PM EDT) White Blood Count 8.1 4.8 - 10.8 X10*3/uL [facility] Red Blood Count 4.60 4.20 - 5.50 X10*6/uL [facility] Hemoglobin 12.6 12.0 - 16.0 g/dl [facility] Hematocrit 39.0 37.0 - 47.0 % [facility] Mean Corpuscular Volume 84.8 80.0 - 98.0 fL [facility] Mean Corpuscular Hemoglobin 27.4 27.0 - 33.0 pg [facility] Mean Corpuscular HGB Conc 32.3 31.0 - 35.0 g/dl [facility] Red Cell Distribution Width 13.0 11.0 - 16.0 % [facility] Platelet Count 329 160 - 400 X10*3/uL [facility] Mean Platelet Volume 8.9(L) 9.4 - 12.3 fL [facility] NRBC Pct Auto 0.0 0.0 - 0.2 /100WBC [facility] NRBC Abs Auto 0.000 0.0 - 0.012 X10*3/uL [facility] Blood Venous blood specimen / Unknown 04/27/2025 1:18 PM EDT 04/27/2025 4:17 PM EDT us Farhana Horn DO LAB BLOOD ORDERABLES Final R esult Performing Organization Address City/[facility]/ZIP Co de Phone Number [facility] [address] [place] [address] [phone] * Rheumatoid Factor (04/27/2025 1:18 PM EDT) Pathologist [facility] Rheumatoid Factor <13.0 <15.0 IU/mL [facility] Blood Venous blood specimen / Unknown 04/27/2025 1:18 PM EDT 04/27/2025 4:17 PM EDT Farhana Horn DO LAB BLOOD ORDERABLES Final R esult Performing Organization Address City/[facility]/ZIP Co de Phone Number [facility] [address] [place] [phone] * C-reactive Protein (04/27/2025 1:18 PM EDT) Pathologist [facility] C Reactive Protein 0.26 < or = 0.50 mg/dL [facility] Blood Venous blood specimen / Unknown 04/27/2025 1:18 PM EDT 04/27/2025 4:17 PM EDT Farhana Horn LAB BLOOD ORDERABLES Final R [facility] Performing Organization Address [facility] Co de Phone Number [facility] [address] [place] [phone] * JERMAINE Screen,IFA, with Reflex to Titer and Pattern (04/27/2025 1:18 PM EDT) Pathologist [facility] Anti Nuclear Antibody Screen NEGATIVE NEGATIVE [facility] Comment:JERMAINE IFA is a first l ine screen for detecting thepresence of up to approximately 150 autoantibodies invarious autoimmune diseases. A negative JERMAINE IFA resultsuggests an JERMAINE-associated autoimmune disease is notpresent at this time, but is not definitive. If thereis high clinical suspicion for Sjogren's syndrome,testing for anti-SS-A/Ro antibody should be considered.Anti-Kiki-1 antibody should be considered for clinicallysuspected inflammatory myopathies.AC-0: NegativeInternational Consensus on JERMAINE Patterns(https://doi.org/10.1515/vkqm-1070-2192)For additional information, please refer tohttp://education.[employer]/faq/PDA545(This link is being provided for informational/educational purposes only.)THIS TEST WAS PERFORMED AT:[facility] [place] [phone] WORKMAN MD JERMAINE Titer TNP [facility] JERMAINE Pattern TNP [facility] JERMAINE TITER 2 ([facility] LAB) [facility] J[facility] Pattern 2 TNP [facility] JERMAINE TITER 3 [facility] PATTERN 3 [facility] Blood Venous blood specimen / Unknown 04/27/2025 1:18 PM EDT 04/27/2025 4:17 PM EDT Farhana Horn LAB BLOOD ORDERABLES Final R esult Performing Organization Address City/[facility]/ZIP Co de Phone Number [facility] [address] [place] [phone] * TSH (04/27/2025 1:18 PM EDT) Thyroid Stimulating Hormone 1.49 0.32 - 4.0 uIU/mL [facility] Comment:TSH 3rd Generation ( [employer]) Blood Venous blood specimen / Unknown 04/27/2025 1:18 PM EDT 04/27/2025 4:17 PM EDT [facility] ORDER[facility] Final R esult Performing Organization Address City/[facility]/ZIP Co de Phone Number [facility] [address] [place] [phone] * T4, Free (04/27/2025 1:18 PM EDT) Free T4 (Free Thyroxine) 1.01 0.71 - 1.85 ng/dL [facility] Blood Venous blood specimen / Unknown 04/27/2025 1:18 PM EDT 04/27/2025 4:17 PM EDT Farhana Kory LAB BLOOD ORDERABLES Final R esult Performing Organization Address [facility] de Phone Number [facility] [address] [place] [phone] * (ABNORMAL) Hemoglobin A1c (04/27/2025 1:18 PM EDT) Hemoglobin A1c 7.0(H) <6.0 % [facility] Comment:Hemoglobin A1C Refer ence Range Adults: 4.8 - 6.0 % Non diabetic: < 6.0 % Goal: < 7.0 %Additional Action Suggested: > 8.0 %Note: Hemoglobin A1c results are invalid for patients with abnormal amounts of HbF. Blood transfusions may impact the HbA1c concentration in the patient sample. Estimated Average Glucose 154 mg/dL [facility] Comment:eAG = Estimated ave rage glucose which is %A1C expressed asaverage glucose, using the formula of the [id number] Glucose study (ADAG), Diabetes Care, Vol.31,#8,Apr. 2007 Blood Venous blood specimen / Unknown 04/27/2025 1:18 PM EDT 04/27/2025 4:17 PM EDT Farhana Horn DO LAB BLOOD ORDERABLES Final R esult Performing Organization Address [facility] Co de Phone Number [facility] [address] [place] [phone] * (ABNORMAL) Hepatic Function Panel (04/27/2025 1:18 PM EDT) Bilirubin, Total 0.2 0.0 - 1.0 mg/dL [facility] Bilirubin, Direct <0.2 0.0 - 0.5 mg/dL [facility] Aspartate Amino Transferase 35(H) 5 - 31 U/L [facility] Alanine Aminotransferase 44(H) 0 - 31 U/L [facility] Total Protein 7.3 6.5 - 8.0 g/dL [facility] Albumin Level 4.3 3.5 - 5.0 g/dL [facility] Alkaline Phosphatase 130(H) 39 - 117 U/L [facility] Blood Venous blood specimen / Unknown 04/27/2025 1:18 PM EDT 04/27/2025 4:17 PM EDT us Farhana Horn DO LAB BLOOD ORDERABLES Final R esult [facility] [address] [place] [phone] * (ABNORMAL) Lipid Panel, Standard (04/27/2025 1:18 PM EDT) Triglycerides 134 <150 mg/dL [facility] Comment:Desirable Triglyceri de: less than 150 mg/dLBorderline High Triglyceride 150-199 mg/dLHigh Triglyceride: 200-499 mg/dLVery High Triglyceride: greater than or equal to 5OO mg/dL Cholesterol 137 <200 mg/dL [facility] Comment:Desirable Cholestero l: less than 200 mg/dLBorderline High Cholesterol: 200-239 mg/dLHigh Cholesterol: greater than 239 mg/dL LDL Cholesterol Calculated 76 <100 mg/dL [facility] Comment:Desirable LDL: less than 100 mg/dLNear Optimal/Above Optimal LDL: 110- 129 mg/dLBorderline High LDL: 130-159 mg/dLHigh LDL: 160-189 mg/dLVery High LDL: greater than or equal to 190 mg/dL HDL Cholesterol 35(L) >40 mg/dL [facility] Comment:Desirable HDL: great er than 40 mg/dL Note: This HDL assay may give artificially low results in patients with liver disease. Blood Venous blood specimen / Unknown 04/27/2025 1:18 PM EDT 04/27/2025 4:17 PM EDT Farhana Horn DO LAB BLOOD ORDERABLES Final R esult Performing Organization Address City/State/[facility] Co de Phone Number [facility] [address] [place] [address] [phone] * (ABNORMAL) Basic Metabolic Panel (04/27/2025 1:18 PM EDT) Sodium 140 135 - 145 mmol/L [facility] Potassium 3.9 3.3 - 5.1 mmol/L [facility] Chloride 106 96 - 108 mmol/L [facility] Carbon Dioxide 26 22 - 29 mmol/L [facility] Anion Gap 12 12 - 20 [facility] Urea Nitrogen (BUN) 13 9 - 16 mg/dL [facility] Creatinine, Serum 0.75 0.5 - 1.4 mg/dL [facility] Estimated Glomerular Filt Rate >60 [facility] Comment:Chronic Kidney Disea se: Estimated GFR < 60 mL/min/1.83v0Wseihd Kidney Disease: Estimated GFR < 15 mL/min/1.73m2 Glucose 185(H) 60 - 115 mg/dL [facility] Calcium 9.2 8.4 - 10.2 mg/dL [facility] Blood Venous blood specimen / Unknown 04/27/2025 1:18 PM EDT 04/27/2025 4:17 PM EDT us Farhana Horn DO LAB BLOOD ORDERABLES Final R esult Performing Organization Address [facility]/ZIP Co de Phone Number [facility] [address] [place] [phone] * (ABNORMAL) POCT HGB A1C (04/27/2025 11:29 AM EDT) Hemoglobin A1C 7.0(A) 4.0 - 5.7 % QC Media Lot # [id number] Lot# Expiration Date ,426 Blood 04/27/2025 11:2 9 AM EDT us Farhana Jurcsak DO POINT OF CARE TEST ENTER/PAUL T ORDERABLES Final Result * POCT Glucose (04/27/2025 11:29 AM EDT) Glucose Blood, POC 166 60 - 200 mg/dL [employer] Lot # [id number] Lot# Expiration Date ,914,782 Blood Capillary blood specimen / Unknown 04/27/2025 11:29 AM EDT Farhana Horn DO POINT OF CARE TEST ENTER/PAUL T ORDERABLES Final Result * XR Hand 3+ Views Left (03/22/2025 10:15 AM EDT) Anatomical Region Laterality Modality Upper Extremities, Hand Left Radiogra phic Imaging 03/22/2025 10:1 5 AM EDT Narrative 03/22/2025 11:40 [place] [address] XRay Report Signed Patient: Tir Bowens MR#: [id number] 63 : 1970 Acct:[id number] Age/Sex: 54 / F ADM Date: 03/22/25 Loc: HO.[facility]HCX Attending Dr: Jermaine Pagan MD Ordering Physician: Jermaine Pagan MD Date of Service: 03/22/25 Procedure(s): XR hand LT min 3V Accession Number(s): [id number] cc: Jermaine Pagan MD EXAMINATION: XR HAND, LEFT CLINICAL INFORMATION: left hand/foot and ankle pain sp fall 2d ago COMPARISON: None available. TECHNIQUE: PA, lateral, and oblique views of the left hand. FINDINGS: No fracture, dislocation, or suspicious bone lesion. Normal alignment. 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 Joint spaces otherwise preserved. No soft tissue abnormality. XR/XR hand LT min 3V IMPRESSION: No acute bony abnormalities of the left hand/wrist. Electronically signed by: Joel Godoy MD 03/22/2025 11:37 AM EDT Dictated By: Joel Godoy MD Signed By: <Electronically signed by Joel Godoy MD in OV> 03/22/25 1137 DD/ 1015 TD/TT: 03/22/25 1020 Poker Manager: Procedure Note Juice, Wai - 03/22/[address] [address] XRay Report Signed Patient: Tri BowensMR#: [id number] 63 : 1970Acct:[id number] Age/Sex: 54 / FADM Date: 03/22/25 Loc: HO.HHCX Attending Dr: Jermaine Pagan MD Ordering Physician: Jermaine Pagan MD Date of Service: 03/22/25 Procedure(s): XR hand LT min 3V Accession Number(s): [id number] cc: Jermaine Pagan MD EXAMINATION: XR HAND, LEFT CLINICAL INFORMATION: left hand/foot and ankle pain sp fall 2d ago COMPARISON: None available. TECHNIQUE: PA, lateral, and oblique views of the left hand. FINDINGS: No fracture, dislocation, or suspicious bone lesion. Normal alignment. 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 Joint spaces otherwise preserved. No soft tissue abnormality. XR/XR hand LT min 3V IMPRESSION: No acute bony abnormalities of the left hand/wrist. Electronically signed by: Joel Godoy MD 03/22/2025 11:37 AM EDT Dictated By: Joel Godoy MD Signed By: <Electronically signed by Joel Godoy MD in OV> 03/22/25 1137 DD/ 1015 TD/TT: 03/22/25 1020 Poker Manager: Jermaine Pagan MD IMG XR PROCEDURES Final Result * XR Ankle 3+ Views Left (03/22/2025 10:12 AM EDT) Anatomical Region Laterality Modality Lower Extremities, Ankle Left Radiogr aphic Imaging 03/22/2025 10:1 2 AM EDT Narrative 03/22/2025 11:46 AM EDT [address] [address] XRay Report Signed Patient: Tri Bowens MR#: [id number] 63 : 1970 Acct:[id number] Age/Sex: 54 / F ADM Date: 03/22/25 [facility]: Jermaine Pagan MD Ordering Physician: Jermaine Pagan MD Date of Service: 03/22/25 Procedure(s): XR ankle LT min 3V Accession Number(s): [id number] cc: Jermaine Pagan MD EXAMINATION: XR FOOT 3 OR MORE VIEWS LEFT, XR ANKLE 3 OR MORE VIEWS LEFT HISTORY: left hand/foot and ankle pain sp fall 2d ago COMPARISON: Comparison is made with the prior examination of the left ankle dated 12/09/2023 and the prior examination of the left foot dated 02/26/2021. FINDINGS: Six views of the left foot and ankle are submitted. Osseous mineralization is normal. There is no fracture or dislocation. The joint spaces are preserved. The soft tissues are unremarkable. XR/XR ankle LT min 3V IMPRESSION: Unremarkable examination of the left foot and ankle. Electronically signed by: Moises Jerez MD 03/22/2025 11:43 AM EDT Dictated By: Moises Jerez MD Signed By: <Electronically signed by Moises Jerez MD in OV> 03/22/25 1143 DD/ 1012 TD/TT: 03/22/25 1020 Poker Manager: Procedure Note Donotuseinterpreter, Image - 03/22/[address] [address] XRay Report Signed Patient: Tri BowensMR#: [id number] 63 : 1970Acct:[id number] Age/Sex: 54 / FADM Date: 03/22/25 Loc: [facility] Attending Dr: Jermaine Pagan MD Ordering Physician: Jermaine Pagan MD Date of Service: 03/22/25 Procedure(s): XR ankle LT min 3V Accession Number(s): [id number] cc: Jermaine Pagan MD EXAMINATION: XR FOOT 3 OR MORE VIEWS LEFT, XR ANKLE 3 OR MORE VIEWS LEFT HISTORY: left hand/foot and ankle pain sp fall 2d ago COMPARISON: Comparison is made with the prior examination of the left ankle dated 12/09/2023 and the prior examination of the left foot dated 02/26/2021. FINDINGS: Six views of the left foot and ankle are submitted. Osseous mineralization is normal. There is no fracture or dislocation. The joint spaces are preserved. The soft tissues are unremarkable. XR/XR ankle LT min 3V IMPRESSION: Unremarkable examination of the left foot and ankle. Electronically signed by: Moises Jerez MD 03/22/2025 11:43 AM EDT Dictated By: Moises Jerez MD Signed By: <Electronically signed by Moises Jerez MD in OV> 03/22/25 1143 DD/ 1012 TD/TT: 03/22/25 1020 Poker Manager: Jermaine Pagan MD IMG XR PROCEDURES Final Result * XR Foot 3+ Views Left (03/22/2025 10:10 AM EDT) Anatomical Region Laterality Modality Lower Extremities, Foot Left Radiogra phic Imaging 03/22/2025 10:1 0 AM EDT Narrative 03/22/2025 11:46 AM EDT [address] [address] XRay Report Signed Patient: Tri Bowens MR#: [id number] 63 : 1970 Acct:[id number] Age/Sex: 54 / F ADM Date: 03/22/25 Loc: HO.[facility]X Attending Dr: Jermaine Pagan MD Ordering Physician: Jermaine Pagan MD Date of Service: 03/22/25 Procedure(s): XR foot LT min 3V Accession Number(s): [id number] cc: Jermaine Pagan MD EXAMINATION: XR FOOT 3 OR MORE VIEWS LEFT, XR ANKLE 3 OR MORE VIEWS LEFT HISTORY: left hand/foot and ankle pain sp fall 2d ago COMPARISON: Comparison is made with the prior examination of the left ankle dated 12/09/2023 and the prior examination of the left foot dated 02/26/2021. FINDINGS: Six views of the left foot and ankle are submitted. Osseous mineralization is normal. There is no fracture or dislocation. The joint spaces are preserved. The soft tissues are unremarkable. XR/XR foot LT min 3V IMPRESSION: Unremarkable examination of the left foot and ankle. Electronically signed by: Moises Jerez MD 03/22/2025 11:43 AM EDT RP Dictated By: Moises Jerez MD Signed By: <Electronically signed by Moises Jerez MD in OV> 03/22/25 1143 DD/ 1010 TD/TT: 03/22/25 1020 Poker Manager: Procedure Note Donotuseinterpreter, Image - 03/22/[address] [address] XRay Report Signed Patient: Tri BowensMR#: [id number] 63 : 1970Acct:[id number] Age/Sex: 54 / FADM Date: 03/22/25 Loc: HO.HHCX Attending Dr: Jermaine Pagan MD Ordering Physician: Jermaine Pagan MD Date of Service: 03/22/25 Procedure(s): XR foot LT min 3V Accession Number(s): [id number] cc: Jermaine Pagan MD EXAMINATION: XR FOOT 3 OR MORE VIEWS LEFT, XR ANKLE 3 OR MORE VIEWS LEFT HISTORY: left hand/foot and ankle pain sp fall 2d ago COMPARISON: Comparison is made with the prior examination of the left ankle dated 12/09/2023 and the prior examination of the left foot dated 02/26/2021. FINDINGS: Six views of the left foot and ankle are submitted. Osseous mineralization is normal. There is no fracture or dislocation. The joint spaces are preserved. The soft tissues are unremarkable. XR/XR foot LT min 3V IMPRESSION: Unremarkable examination of the left foot and ankle. Electronically signed by: Moises Jerez MD 03/22/2025 11:43 AM EDT RP Dictated By: Moises Jerez MD Signed By: <Electronically signed by Moises Jerez MD in OV> 03/22/25 1143 DD/ 1010 TD/TT: 03/22/25 1020 Poker Manager: Jermaine Pagan MD IMG XR PROCEDURES Final Result * Stool - Gastrointestinal panel (03/18/2025 4:56 PM EDT) Campylobacter Not Detected Not Detect. [facility] Plesiomonas shigelloides Not Detected Not Detect. [facility] Salmonella Not Detected Not Detect. [facility] Vibrio Not Detected Not Detect. [facility] Vibrio cholerae Not Detected Not Detect. [facility] YERSINIA ENTEROCOLITICA Not Detected Not Detect. [facility] Enteroaggregative E. coli (EAEC) Not Detected Not Detect. [facility] Enteropathogenic E. coli (EPEC) Not Detected Not Detect. [facility] Enterotoxigenic E. coli (ETEC) lt/st Not Detected Not Detect. [facility] Shiga-like toxin-producing E. coli (STEC) stx1/stx2 Not Detected Not Detect. [facility] E coli O157 Not applicable Not Detect. [facility] Comment:E. coli containing t he O157 antigen are a subset ofShiga-like toxin- producing E. coli (STEC). Shigella/Enteroinvasive E. coli (EIEC) Not Detected Not Detect. [facility] Cryptosporidium Not Detected Not Detect. [facility] Cyclospora cayetanensis Not Detected Not Detect. [facility] Entamoeba histolytica Not Detected Not Detect. [facility] Giardia lamblia Not Detected Not Detect. [facility] Adenovirus F 40/41 Not Detected Not Detect. [facility] Astrovirus Not Detected Not Detect. [facility] Norovirus GI/GII Not Detected Not Detect. [facility] Rotavirus A Not Detected Not Detect. [facility] Sapovirus Not Detected Not Detect. [facility] Comment: All results must be correlated with clinical findings.Negative results do not exclude the possibility ofgastrointestinal infection and should not be used as thesole basis for diagnosis, treatment, or other managementdecisions. Virus, bacteria, and parasite nucleic acid maypersist in vivo independently of organism viability.Additionally, some organisms may be carriedasymptomatically.Detection of organism targets does not imply that thecorresponding organisms are infectious or are the causativeagents for clinical symptoms. There is a risk of falsenegative values due to the presence of sequence variants inthe gene targets of the assay, amplification inhibitors inspecimens, or inadequate numbers of organisms foramplification.The identification of several diarrheagenic E. colipathotypes has historically relied upon phenotypiccharacteristics. This panel targets genetic determinantscharacteristic of most pathogenic strains, but may notdetect all strains having phenotypic characteristics of apathotype.The performance of this test has not been established formonitoring treatment of infection with any of the panelorganisms.This assay is performed by Multiplexed PCR, utilizing [employer] Array. Stool Rectal contents / Unknown 03/18/2025 4:56 PM EDT 03/19/2025 11:35 AM EDT Farhana Horn DO LAB MICROBIOLOGY - GENERAL O RDERABLES Final Result [facility] [address] [place] [phone] * Fecal Globin By Immunochemistry (02/04/2025 12:00 AM EDT) Fecal Globin By Immunochemistry SEE NOTE [facility] Comment: FECAL GLOBIN BY IMMUNOCHEMISTRY Micro Number: [id number] Test Status: Final Specimen Source: Insure () fobt test card Specimen Quality: Adequate Fecal Globin: Not Detected Reference Range: Not Detected NOTE: Approved collection includes sample of toilet water adjacent to stool. Other methods of collection such as stool transferred from diaper, bedpan, or commode to toilet water may lead to inaccurate results. 02/04/2025 02/11/2025 9:3 1 AM EDT Narrative [facility] - 02/11/2025 5:26 PM EDT FASTING: UNKNOWN Farhana Horn DO LAB BODY FLUIDS AND STOOLS O RDERABLES Final Result Performing Organization Address City/[facility]/ZIP Co de Phone Number [facility] [address], [place] [address] [facility] [address] [place] [phone] * Albumin, Random Urine W/Creatinine (01/29/2025 11:23 AM EDT) Creatinine, Urine 174.41 mg/dL [facility] Microalbumin Urine 12.0 mg/L [facility] Microalbum Creatinine Ratio Ur 6.8 <30 ug/mg cr [facility] Comment:Albumin/Creatinine R atio Reference Ranges: Normal: < 30 ug/mg creatinine Microalbuminuria: 30 - 300 ug/mg creatinineClinical Albuminuria: > 300 ug/mg creatinine Urine (Urine, Random) 01/29/2025 11:23 AM EDT 01/29/2025 1:03 PM EDT Farhana Horn DO LAB URINE ORDERABLES Final R esult Performing Organization Address City/[facility]/ZIP Co de Phone Number [facility] [address] [place] [address] [phone] * Hepatitis C Antibody with Reflex to HCV, RNA, Quantitative, Real-Time PCR (01/29/2025 11:23 AM EDT) Hepatitis C Antibody Nonreactive Nonreactive [facility] Comment:Antibodies to HCV no t detected; does not exclude early acuteHCV infection. Blood Venous blood specimen / Unknown 01/29/2025 11:23 AM EDT 01/29/2025 1:24 PM EDT us Farhana Horn DO LAB BLOOD ORDERABLES Final R esult Performing Organization Address [facility]/ZIP Co de Phone Number [facility] [address] [place] [phone] * HIV-1/2 Antigen and Antibodies, Fourth Generation, with Reflexes (01/29/2025 11:23 AM EDT) HIV AB/AG Nonreactive Nonreactive [facility] Comment:HIV-1 p24 Ag and/or HIV-1/HIV-2 Ab not detected.A test result that is nonreactive does not exclude thepossibility of exposure to or infection with HIV-1 and/orHIV-2. Nonreactive results in this assay for individualswith prior exposure to HIV-1 and/or HIV-2 may be due toantigen and antibody levels that are below the limit ofdetection of this assay.The Apps[employer] HIV Ag/Ab Combo assay result andsupplemental assay results should be interpreted inconjunction with the patient's clinical presentation,history and other laboratory results. If the results areinconsistent with clinical evidence, additional testing issuggested to confirm the result. Blood Venous blood specimen / Unknown 01/29/2025 11:23 AM EDT 01/29/2025 1:24 PM EDT us Farhana Horn DO LAB BLOOD ORDERABLES Final R esult Performing Organization Address [facility]/ZIP Co de Phone Number [facility] [address] [place] [phone] * Colposcopy (12/02/2024 12:00 AM EDT) us Historical Provider MD IN CLINIC/BEDSIDE ORDERAB LES Final Result Performing Organization Address [facility]/ZIP Co de Phone Number [facility] [address] [place] [phone] * (ABNORMAL) HPV DNA, Low/High Risk (10/27/2024 9:07 AM EST) HPV High Risk Positive(A) Negative [facility] HPV Genotype 16 Negative Negative [facility] HPV Genotype 18 Negative Negative [facility] Comment:HPV testing performe d at [facility] (CLIA#[id number]), [address] [place] [phone].Testing for HPV was performed using the Tier 3 DESIRAE 6800system. The presence of HPV in [...] [place] Co de Phone Number [facility] [address] [place] [phone] * Pap Smear (10/27/2024 9:07 AM EST) 10/27/2024 9:07 AM EST 10/27/2024 2:15 PM EST Narrative [facility] - 11/02/2024 3:56 PM EST ----- ------- Name: Tri Bowens Age/Sex: 53/F : 1970 Unit#: [id number] Attend Dr: Fabio Morin MD Re10/27/24 Status: DEP REF Location: [facility] Disch: ----- ------- SPEC : [id number] RECD: 10/27/24 STATUS: STEPHANIE GARLAND NUM: [id number] ANITA: 10/27/[address]: Fabio Morin MD ENTERED: 10/27/24 SP TYPE: Pap Smr OTHR DR: Farhana Horn DO ORDERED: Pap Smear Interpretation Satisfactory for evaluation. Negative for intraepithelial lesion or malignancy. HPV High Risk: Positive HPV Genotyping 16: Negative HPV Genotyping 18: Negative Clinical Information LMP:[place] Previous PAP test:2019 Other surgery: Other history: Copies To: Farhana Horn DO [address] [phone] Fabio Morin MD [facility] [address] [place] [address] [place] [address] ----- ------- Signed (signature on file) CORI Ortez ([facility]) 11/02/24 1556 ----- ------- END OF REPORT us Generic External Data Provider LAB CYTOLOGY BROOKE GREY Final Result [facility] [address] [place] [phone] * BI Mammogram Screening Tomosynthesis Bilateral (09/23/2024 10:30 AM EST) Anatomical Region Laterality Modality Breast Bilateral Mammography 09/23/2024 10:3 0 AM EST Narrative 10/04/2024 9:14 AM EST [address] [place] [address] Mammography Report Signed Patient: Tri Bowens MR#: [id number] 63 : 1970 Acct:[id number] Age/Sex: 53 / F ADM Date: 09/23/24 Loc: HO.MAMMO Attending Dr: Farhana Horn DO Ordering Physician: Farhana Horn DO Results: 1N egative Date of Service: 09/23/24 Follow Up: 1 Year From [facility] Mammogram Procedure(s): MM tomosynthesis screening BI Accession Number(s): [id number] cc: Farhana Horn DO EXAMINATION: MM SCREENING [...] 10/04/24 0911 DD/ 1030 TD/TT: 09/23/24 1041 Poker Manager: Procedure Note Donotuseinterpreter, Image - 10/04/[facility] [address] [place] [address] Mammography Report Signed Patient: Wang Bowens#: [id number] 63 : 1970Acct:[id number] Age/Sex: 53 / FADM Date: 09/23/24 Loc: HO.MAMMO Attending Dr: Farhana Horn DO Ordering Physician: Farhana Hornults: 1N egative Date of Service: 09/23/24Follow Up: 1 Year From Orig inal Mammogram Procedure(s): MM tomosynthesis screening BI Accession Number(s): [id number] cc: Farhana Horn DO EXAMINATION: MM SCREENING [...] 10/04/24 0911 DD/ 1030 TD/TT: 09/23/24 1041 Poker Manager: us Farhana Horn DO IMG BI PROCEDURES Edited Res ult - Final * Hm Colonoscopy (01/27/2019 8:43 AM EDT) Historical Provider MD HEALTH MAINTENANCE Final Result from Last 3 Months or Most Recently Relevant to Health Maintenance Insurance [address] [place], [place] [address] [facility] Care Teams Full Time Staff Interpreter Relationship Specialty Start Date End Date Farhana Horn DO [address] [place] [phone] PCP - General Family Medicine 09/09/18 Tyshawn Yap Paint StripperBus Monitor 06/14/25
--- OUTSIDE RECORDS SUMMARY | 2025-06-15 07:47 | XMS_ITS | Encounter Summary ---
Author Organization [employer] Address [address] [place] [address] 7 [place] [address] Care Team Providers Care Senior Biostatistician Name Role Phone Farhana Horn DO Primary Care Provider + [phone] Encounter Details Date Type Department Care Team (Latest Contact Info) Description 10/16/2019 Abstract [facility] Dental, Provider, DDS Social History Tobacco [...] filedocumented in this encounter Care Teams Senior Biostatistician Relationship Specialty Start Date End Date Farhana Horn DO [address] [place] [address] PCP - General Family Medicine 09/09/18 Tyshawn Yap Supervisor Smoke ControlQuantitative Associate 06/14/25 documented as of this encounter
--- OUTSIDE RECORDS SUMMARY | 2025-06-15 07:47 | XMS_ITS | Encounter Summary ---
Author Organization [email or web address] Address [address] [place] [address] 7 [place] [address] Care Team Providers Care Conductor Pullman Name Role Phone Farhana Horn DO Primary Care Provider + [phone] Reason for Visit * Reason Comments Med Refill Encounter Details Date Type Department Care Team (Late st Contact Info) Description 12/13/2022 Refill [facility] MED & PEDS [address] [place], [place] [phone] [facility] [address] [place] [address] Hyperlipidemia, unspecified hyperlipidemia type Social History Tobacco [...] type documented in this encounter Care Teams Conductor Pullman Relationship Specialty Start Date End Date Farhana Horn DO [address] [place], [place] [phone] PCP - General Family Medicine 09/09/18 Tyshawn Yap Bead InspectorDelivery Crew Member 06/14/25 documented as of this encounter
--- OUTSIDE RECORDS SUMMARY | 2025-06-15 07:47 | XMS_ITS | Encounter Summary ---
Author Organization [employer] Address [address] [facility] 7t [place] [address] Care Team Providers Care Puttying And Calking Supervisor Name Role Phone KoryFarhana Primary Care Provider + [phone] Encounter Details Date Type Department Care Team ([facility] st Contact Info) Description 12/20/2023 Orders Only [facility] MEDICINE [address] [place] [address] ProviderPantera MD Social History Tobacco Use Types [...] the past 12 months, has t he [employer], gas, oil or water [employer] threatened to shut off services in your [...] documented as of this encounter Care Teams Puttying And Calking Supervisor Relationship Specialty Start Date End Date Farhana Horn DO [address] [place] [address] PCP - General Family Medicine 09/09/18 Tyshawn Yap Sports SpecialistAircraft Shipping Checker 06/14/25 documented as of this encounter
--- OUTSIDE RECORDS SUMMARY | 2025-06-15 07:47 | XMS_ITS | Clinical Summary ---
Author Organization [facility] Address [address] [facility] [address] [place] [phone] Phone Care Team Providers Care Injection Molding Technician Name Role Phone Farhana Horn Primary Care Provider [phone] Allergies Active Allergy Reactions Criticality Noted Date [...] file Medical Devices Not on file [place] [address] [place] [address] NON NSPG PCP [employer] [place] [address] [place] [address] NON NSPG PCP [employer] [facility] [place] NON [place]SP[place] PCP S[facility] [employer] [facility] NON NSPG PCP [employer] [employer] [facility] NON NSPG PCP [employer] [place] NON NSPG PCP [employer] [place] NON NSPG PCP [facility] [place] NON NSPG PCP [employer] [place] NON NSPG PCP [employer] Care Teams Injection Molding Technician Relationship Specialty Start Date End Date Farhana Horn DO [address] [place] [address] PCP - General Family Medicine 01/15/18 Additional Source Comments The information contained in this document represents components of the legal health record. It is not the complete legal health record.[facility]
--- OUTSIDE RECORDS SUMMARY | 2025-06-15 07:47 | XMS_ITS | Encounter Summary ---
Author Organization [employer] Address [address] [place] [address] 7 [place] [address] Care Team Providers Care Transmission Builder Name Role Phone Farhana Horn DO Primary Care Provider + [phone] Reason for Visit * Reason Onset Date Comments Care Coordination 06/14/2025 ICP Care Plan Encounter Details Date Type Department Care Team ([facility] st Contact Info) Description 06/14/2025 Telephone [facility] MED & PEDS [address] [place], [place] [phone] Farhana Horn DO [address] [place] [address] Care Coordination (ICP Care Plan) Social History Tobacco Use Types Packs/Day Years [...] encounter Miscellaneous Notes * Telephone Encounter - Tita Saunders - 06/14/2025 1:19 PM EDT PCP Designee has received and reviewed Care Plan from Count Includes [facility]: Plastic Extruding Machine Operator: Tyshawn Yap Contact Information: [phone] Care Plan scanned into patient???s EHR and notification sent to PCP. documented in this encounter Plan of Treatment Not on file documented as of this encounter Visit Diagnoses Not on filedocumented in this encounter Additional Health Concerns Assessment Noted Time PHQ-9 Depression Total Score: 13 11/25/ 025 10:22 AM EDT documented as of this encounter Care Teams Transmission Builder Relationship Specialty Start Date End Date Farhana Horn DO [address] [place] [address] PCP - General Family Medicine 09/09/18 Tyshawn Yap Mechanic InsulatorPipe Cutter 06/14/25 documented as of this encounter
--- OUTSIDE RECORDS SUMMARY | 2025-06-15 07:47 | XMS_ITS | Encounter Summary ---
Author Organization [employer] [facility] Address [address] [place] [address] [address] [place] [address] Care Team Providers Care Manufacturing Support Engineer Name Role Phone Farhana Horn DO Primary Care Provider + [phone] Reason for Visit * Reason Comments Med Refill Encounter Details Date Type Department Care Team ([facility] st Contact Info) Description 03/27/2025 Refill [facility] MEDICINE [address] [place] [address] Farhana Horn DO [address] [place] [address] Social History Tobacco Use Types Packs/Day Years [...] documented as of this encounter Care Teams Manufacturing Support Engineer Relationship Specialty Start Date End Date Farhana Horn DO [address] [place] [address] PCP - General Family Medicine 09/09/18 Tyshawn Yap Condenser WinderFiscal Assistant 06/14/25 documented as of this encounter
--- OUTSIDE RECORDS SUMMARY | 2025-06-15 07:47 | XMS_ITS | Encounter Summary ---
Author Organization [employer] Address [address] [place] [address] 7[address] [place] [address] Care Team Providers Care Braille Coder Name Role Phone Farhana Horn DO Primary Care Provider + [phone] Reason for Visit * Reason Comments Med Refill Encounter Details Date Type Department Care Team ([facility] st Contact Info) Description 02/11/[address] [facility] MEDICINE [address] [place] [address] Farhana Horn DO [address] [place] [address] Social History Tobacco Use Types Packs/Day Years [...] documented as of this encounter Care Teams Braille Coder Relationship Specialty Start Date End Date Farhana Horn DO [address] [place] [address] PCP - General Family Medicine 09/09/18 Tyshawn Yap Automotive Design Layout DrafterDoor Closer 06/14/25 documented as of this encounter
--- OUTSIDE RECORDS SUMMARY | 2025-06-15 07:47 | XMS_ITS | Data Portability ---
Author Organization [place] - [facility], Allergy Address [address] [address] Care Team Providers Care Stenciler Name Role Phone Unavailable Primary Care Provider Assessment Encounter Date Assessment Date Assessment LastModified by Organization Details LastModified Time 05/19/2025 05/19/2025 Small cyst in the right maxillary sinus. The MRI report from [place] dated February 07 demonstrates mucosal thickening and a polyp versus mucus retention cyst in the right maxillary sinus. These findings are common and not dangerous. No further intervention is required at this time. The patient was reassured that these cysts can vary in size and may resolve completely on their own. She was advised to monitor for any new or worsening symptoms and to follow up if needed. [email or web address] Not available 05/19/2025 15:59:40 Plan of Treatment Reminders Order Date Submit Date Provider Last Modified By Organization Details Last Modified Time Details Appointments None record ed. Lab None record ed. Referral None record ed. Procedures None record ed. Surgeries None record ed. Imaging None record ed. Medication Orders None record ed. Patient TargetsNo targets recorded. Patient Instructions Encounter Date Encounter Id Patient Instructions Last Modified By Organization Details Last Modified Time 05/19/2025 [id number] Monitor for any new or worsening symptoms. Follow up if needed. [email or web address] Not available 05/19/2025 15:58:44 Please note: Parts of this encounter note have been generated by AI based on audio conversation. Patient consent was required prior to utilizing this technology. Content review was required prior to finalizing the note. [email or web address] Not available 05/19/2025 15:58:45 Reason for Referral None Reported. 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 Medical Equipment None Reported. Allergies Allergen ID Allergen Name Allergen Category Reaction Reaction Severity Criticality Documentation Date Start Date Code Code System Note Provider Name and Address Organization Details Recorded Time 34036 Product containin g penicilli n (product) medicatio n other Not available Not available 01/21/2024 48125 8001 SNOMED React ion: other react ion, Unkno wn; Not Available [facility] 4 00:57:15 Medications Name Sig Start Date Stop Date Status Note LastModified by Organization Details LastModified Time metformin 500 mg tablet TOME TIERA TABLETA VIA ORAL CADA JADYN active Not Available Not Available No t Available atorvasta tin 20 mg tablet TOME ELKE TABLETA VIA ORAL CADA NOCHE A LA HORA DE ACOSTARS E active Not Available Not Available No t Available Carafate 100 mg/mL oral suspensio n 05/19 completed Medicati on ID: [id number] B rand Name: Carafate Send Method: E-Prescr ibed Sub s Allowed: subs OK Speci al Instruct ion: TAKE 10 ML BY MOUTH DAILY (TAKE DOSE AT BEDTIME) . Medica tionGene ricName: Carafate Not Available Not Available Not Available amitripty line 150 mg tablet TAKE 1 TABLET BY MOUTH ONCE A DAY AT BEDTIME. active Not Available Not Available No t Available ketotifen 0.025 % (0.035 %) eye drops 2020 active Medicati on ID: [id number] B rand Name: ketotife n fumarate Send Method: E-Prescr ibed Sub s Allowed: subs OK Speci al Instruct ion: INSTILL 1 DROP IN THE AFFECTED EYE(S) 2 TIMES A DAY NEEDED FOR ITCHING. Medicat ionGener icName: ketotife n fumarate Not Available Not Available Not Available senna 8.6 mg tablet 2020 active Medicati on ID: [id number] B rand Name: senna Se nd Method: E-Prescr ibed Sub s Allowed: subs OK Speci al Instruct ion: TAKE 2 TABLETS BY MOUTH DOS VECES AL JADYN Medi cationGe nericNam e: senna Not Available Not Available Not Available meloxicam 15 mg tablet TAKE 1 TABLET BY MOUTH ONCE A DAY. active Not Available Not Available No t Available sucralfat e 1 gram tablet TOME ELKE TABLETA VIA ORAL CADA NOCHE A LA HORA DE ACOSTARS E active Not Available Not Available No t Available ondansetr on HCl 4 mg tablet 05/19 completed Medicati on ID: [id number] B rand Name: ondanset masha HCl Send Method: E-Prescr ibed Sub s Allowed: subs OK Speci al Instruct ion: TOME TIERA TABLETA VIA ORAL CADA 8 HORAS LAMINE SEA NECESARI O PARA LAS NAUSEAS Y LOS VOMITOS Medicati onGeneri cName: ondanset masha HCl Not Available Not Available Not Available prednison e 20 mg tablet 01/23 completed Medicati on ID: [id number] B rand Name: predniso ne Send Method: E-Prescr ibed Sub s Allowed: subs OK Speci al Instruct ion: TAKE 3 TABLETS DAILY X 3 DAYS THEN TAKE 2 TABLETS DAILY X 3 DAYS THEN TAKE 1 TABLET DAILY X 3 DAYS Med icationG enericNa me: predniso ne Not Available Not Available Not Available clonazepa m 0.5 mg tablet 2020 active Medicati on ID: [id number] B rand Name: clonazep am Send Method: E-Prescr ibed Sub s Allowed: subs OK Speci al Instruct ion: TOME TIERA TABLETA VIA ORAL DOS VECES AL JADYN Medi cationGe nericNam e: clonazep am Not Available Not Available Not Available gabapenti n 400 mg capsule TAKE ONE CAPSULE BY MOUTH TWICE A DAY AND TAKE TWO CAPSULES AT BEDTIME. active Not Available Not Available No t Available simvastat in 10 mg tablet 05/19 completed Medicati on ID: [id number] B rand Name: simvasta tin Send Method: E-Prescr ibed Sub s Allowed: subs OK Speci al Instruct ion: TOME TIERA TABLETA VIA ORAL CADA NOCHE Me dication GenericN candice: simvasta tin Not Available Not Available Not Available sumatript an 50 mg tablet TAKE 1 TABLET BY MOUTH NEEDED, MAY TAKE THE SECOND DOSE AT LEAST 4 HOURS AFTER THE FIRST DOSE, ONCE DAILY active Not Available Not Available No t Available metronida zole 500 mg tablet TOME TIERA TABLETA VIA ORAL CADA 8 HORAS 03/24 completed Not Available Not Available Not Available tramadol 50 mg tablet 05/19 completed Medicati on ID: [id number] B rand Name: tramadol Send Method: E-Prescr ibed Sub s Allowed: subs OK Speci al Instruct ion: TAKE 1-2 TABLETS BY MOUTH CADA 6 HORAS LAMINE SEA NECESARI O PARA EL DOLOR Me dication GenericN candice: tramadol Not Available Not Available Not Available butalbita l-acetami nophen-ca ffeine 50 mg-325 mg-40 mg tablet TOME TIERA TABLETA VIA ORAL CADA 4 HORAS LAMINE SEA NECESARI O FOR HEADACHE S OR MIGRAINE S active Not Available Not Available No t Available acetamino phen ER 650 mg tablet,ex tended release TOME TIERA TABLETA VIA ORAL CADA 8 HORAS LAMINE SEA NECESARI O FOR PAIN AND/OR FEVER active Not Available Not Available No t Available baclofen 20 mg tablet 05/19 completed Medicati on ID: [id number] B rand Name: baclofen Send Method: E-Prescr ibed Sub s Allowed: subs OK Speci al Instruct ion: TOME TIERA TABLETA VIA ORAL ROSALVA VECES AL JADYN LAMINE SEA NECESARI O FOR MUSCLE SPASM/PA IN Medic ationGen ericName : baclofen Not Available Not Available Not Available Mi-Acid Gas Relief (simethic one) 80 mg chewable tablet 05/19 completed Medicati on ID: [id number] B rand Name: Mi-Acid Gas Relief(s imethico n) Send Method: E-Prescr ibed Sub s Allowed: subs OK Speci al Instruct ion: MASTIQUE Y TRAGUE TIERA TABLETA VIA ORAL CUATRO VECES AL JADYN DESPUES DE LAS COMIDAS Medicati onGeneri cName: Mi-Acid Gas Relief(s imethico n) Not Available Not Available Not Available famotidin e 20 mg tablet 05/19 completed Medicati on ID: [id number] B rand Name: famotidi ne Send Method: E-Prescr ibed Sub s Allowed: subs OK Speci al Instruct ion: TOME TIERA TABLETA VIA ORAL DOS VECES AL JADYN Medi cationGe nericNam e: famotidi ne Not Available Not Available Not Available magnesium oxide 400 mg (241.3 mg magnesium ) tablet TOME TIERA TABLETA VIA ORAL CADA JADYN active Not Available Not Available No t Available meclizine 25 mg tablet TAKE 1 TABLET BY MOUTH IF NEEDED IN THE MORNING, AT NOON AND AT BEDTIME FOR DIZZINES S active Not Available Not Available No t Available doxycycli ne monohydra te 100 mg capsule TOME TIERA CAPSULA VIA ORAL DOS VECES AL JADYN 03/24 completed Not Available Not Available Not Available cephalexi n 500 mg capsule 01/23 completed Medicati on ID: [id number] B rand Name: cephalex in Send Method: E-Prescr ibed Sub s Allowed: subs OK Speci al Instruct ion: TAKE 1 CAPSULE EVERY 12 HOURS BY MOUTH Me dication GenericN candice: cephalex in Not Available Not Available Not Available pantopraz ole 40 mg tablet,de layed release 05/19 completed Medicati on ID: [id number] B rand Name: pantopra zole Sen d Method: E-Prescr ibed Sub s Allowed: subs OK Speci al Instruct ion: TAKE 1 TABLET VIA ORAL TWICE A DAY--ON GETTING UP AND BEDTIME Medicati onGeneri cName: pantopra zole Not Available Not Available Not Available esomepraz ole magnesium 40 mg capsule,d elayed release TOME TIERA CAPSULA VIA ORAL CADA JADYN 05/19 completed Not Available Not Available Not Available lansopraz ole 30 mg capsule,d elayed release TOME TIERA CAPSULA VIA ORAL CADA JADYN active Not Available Not Available No t Available Citrucel 500 mg tablet TAKE 1 TABLET BY MOUTH DAILY; TAKE IT WITH A FULL GLASS OF WATER. active Not Available Not Available No t Available docusate sodium 100 mg capsule 05/19 completed Medicati on ID: [id number] B rand Name: docusate sodium S end Method: E-Prescr ibed Sub s Allowed: subs OK Speci al Instruct ion: TAKE 1 CAPSULE VIA ORAL DAILY Me dication GenericN candice: docusate sodium Not Available Not Available Not Available pyridoxin e (vitamin B6) 50 mg tablet TOME TIERA TABLETA VIA ORAL CADA JADYN active Not Available Not Available No t Available gabapenti n 300 mg capsule TAKE TWO CAPSULES 600MG) BY MOUTH DAILY AT BEDTIME active Not Available Not Available No t Available omeprazol e 20 mg capsule,d elayed release 01/23 completed Medicati on ID: [id number] B rand Name: omeprazo le Send Method: E-Prescr ibed Sub s Allowed: subs OK Speci al Instruct ion: TAKE ONE CAPSULE BY MOUTH TWICE A DAY (1 CAPSULE IN THE MORNING AND THE SECOND DOSE AT BEDTIME) . Medica tionGene ricName: omeprazo le Not Available Not Available Not Available codeine 10 mg-guaife nesin 100 mg/5 mL oral liquid TAKE 5ML BY MOUTH CADA 6 HORAS LAMINE SEA NECESARI O FOR COUGH FOR 7 DAYS active Not Available Not Available No t Available bisacodyl 5 mg tablet,de layed release TOME DOS TABLETAS VIA ORAL CADA NOCHE A LA HORA DE ACOSTARS E 05/19 completed Not Available Not Available Not Available ergocalci ferol (vitamin D2) 1,250 mcg (50,000 unit) capsule 2020 active Medicati on ID: [id number] B rand Name: ergocalc iferol (vitamin D2) Send Method: E-Prescr ibed Sub s Allowed: subs OK Speci al Instruct ion: TAKE ONE CAPSULE BY MOUTH EVERY WEEK Med icationG enericNa me: ergocalc iferol (vitamin D2) Not Available Not Available Not Available propranol ol ER 120 mg capsule,2 4 hr,extend ed release TOME TIERA CAPSULA VIA ORAL CADA JADYN active Not Available Not Available No t Available levofloxa ana cristina 750 mg tablet TOME TIERA TABLETA VIA ORAL CADA JADYN 03/24 completed Not Available Not Available Not Available ondansetr on 4 mg disintegr ating tablet DISSOLVE ONE TABLET BY MOUTH EVERY 8 HOURS NEEDED FOR NAUSEA AND VOMITING active Not Available Not Available No t Available fluticaso ne propionat e 50 mcg/actua tion nasal spray,ana pension INHALE 2 SPRAYS INTRANAS ALLY DAILY active Not Available Not Available No t Available doxycycli ne hyclate 100 mg tablet TOME TIERA TABLETA VIA ORAL DOS VECES AL JADYN FOR 7 DAYS. TAKE WITH FULL GLASS OF WATER AND DO NOT LIE DOWN FOR AT LEAST 30 MINUTES AFTER active Not Available Not Available No t Available loratadin e 10 mg tablet TOME TIERA TABLETA VIA ORAL CADA JADYN [facility] active Not Available Not Available No t Available naproxen 500 mg tablet 2020 active Medicati on ID: [id number] B rand Name: naproxen Send Method: E-Prescr ibed Sub s Allowed: subs OK Speci al Instruct ion: TAKE ONE TABLET BY MOUTH TWICE A DAY WITH FOOD ONLY NEEDED M edicatio nGeneric Name: naproxen Not Available Not Available Not Available oxycodone 5 mg tablet 01/23 completed Medicati on ID: [id number] B rand Name: oxycodon e Send Method: E-Prescr ibed Sub s Allowed: subs OK Speci al Instruct ion: TOME TIERA TABLETA VIA ORAL CADA 12 HORAS LAMINE SEA NECESARI O PARA EL DOLOR Me dication GenericN candice: oxycodon e Not Available Not Available Not Available Fiber-Lax 625 mg tablet TOME TIERA TABLETA VIA ORAL DOS VECES AL JADYN active Not Available Not Available No t Available Pain Reliever Plus 250 mg-250 mg-65 mg tablet TAKE ONE TABLET BY MOUTH EVERY 6 HOURS NEEDED FOR HEADACHE S FOR UP TO 10 DAYS active Not Available Not Available No t Available Pain Relief Extra Strength (acetamin ophen) 500 mg tablet 2020 active Medicati on ID: [id number] B rand Name: Pain Relief Extra Strength Send Method: E-Prescr ibed Sub s Allowed: subs OK Speci al Instruct ion: TOME TIERA TABLETA VIA ORAL CADA 6 A 8 HORAS LAMINE SEA NECESARI O (NOT TO EXCEED 4 TABLETS IN 24 HOURS) M erich Mcintyreeneric Name: Pain Relief Extra Strength Not Available Not Available Not Available FreeStyle Lite Strips USE DIRECTED TO TEST BLOOD SUGAR TWICE DAILY active Not Available Not Available No t Available FreeStyle Renfrew Lite kit USE DIRECTED TO TEST BLOOD SUGAR TWICE DAILY active Not Available Not Available No t Available diclofena c 1 % topical gel 01/23 completed Medicati on ID: [id number] B rand Name: diclofen ac sodium S end Method: E-Prescr ibed Sub s Allowed: subs OK Speci al Instruct ion: APPLY 2 GRAMS BY TOPICAL ROUTE 4 TIMES DAILY TO THE AFFECTED AREA(S) Medicati onGeneri cName: diclofen ac sodium Not Available Not Available Not Available Vitamin D3 50 mcg (2,000 unit) capsule TAKE 1 CAPSULE BY MOUTH EVERY DAY IN THE MORNING active Not Available Not Available No t Available Probiotic (S.boular dii) 250 mg capsule TOME TIERA CAPSULA VIA ORAL CADA MANANA active Not Available Not Available No t Available Trulicity 0.75 mg/0.5 mL subcutane ous pen injector INJECT ONE PEN (=0.75MG ) SUBCUTAN EOUSLY ONCE A WEEK DIRECTED 05/19 completed Not Available Not Available Not Available Vitals Date Recorded Body height Body mass index (BMI) Body weight Provider Name and Address Organization Details Last Updated DateTime 05/19/2025 152.4 cm 31.2 kg/m2 77459.78 g EDIE OSORIO [place] - [facility] 05/19/2025 15:41:37 Social History None recorded. Functional Status None recorded. Mental Status None recorded. Family History Nothing Reported. Medical History No medical history recorded. Gynecological HistoryNo gynecological history recorded. Obstetrics History GPAL:G 0 P 0 0 0 0 Past Encounters Encounter ID Performer Location Encounter Start Date Encounter Closed Date Diagnosis/Indication Diagnosis SNOMED-CT Code Diagnosis ICD10 Code Diagnosis IMO Codes Diagnosis Note [id number] SILVIO CONNOLLY MD [facility] [address] [address] 05/19/2025 14:57:47 05/19/2025 15:59:01 Mucocele of maxillary sinus [id number] 5370900 J34.1 [id number] Health Concerns Section Related Observation LastModified by Organization Detai ls LastModified Time None Recorded Concern Status LastModified by Organization Details LastModified Time None Recorded Advance Directives Directive None Recorded Payers Insurance Date Sequence Insurance Name Policy Number Policy Saucedo Covered Member ID Saucedo Member ID Guarantor Name 05/19/2025 1 MEDICAID-[place]: [facility] Tri Bowens [id number] Tri Bowens Notes Date Note Type Note Provider Name and Address Organization Details Recorded Time 05/19/2025 text/html 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 The patient reports no current symptoms such as nasal bleeding or issues with her sense of smell. She previously received antibiotics for a suspected infection, which resulted in improvement. She denies any history of nasal surgery. SILVIO CONNOLLY MD [address] [place] [address], [place], [phone], [facility] - [facility] 05/19/2025 15:59:49 OBGyn Episode No OBEpisode recorded.
--- OUTSIDE RECORDS SUMMARY | 2025-06-15 07:47 | XMS_ITS | Encounter Summary ---
Author Organization [employer] Address [address] [place] [address] [address] [place] [address] Care Team Providers Care Outdoor Adventure Leader Name Role Phone ZeeFarhana snyder Primary Care Provider + [phone] Encounter Details Date Type Department Care Team ([facility] st Contact Info) Description 12/07/2024 Orders Only [facility] [address] [place] [address] Carmelita Kruse Social History Tobacco Use Types [...] t he electric, gas, oil or water [employer] threatened to shut off services in your [...] ORDERAB LES Final Result Performing Organization Address [facility]/State/[facility] Co de Phone Number [facility] [address] [place] [phone] documented in this encounter Visit Diagnoses Not on filedocumented in this encounter Additional Health Concerns Assessment Noted Time PHQ-9 Depression Total Score: 13 025 10:22 AM EDT documented as of this encounter Care Teams Outdoor Adventure Leader Relationship Specialty Start Date End Date Farhana Horn DO [address] [place] [phone] PCP - General Family Medicine 09/09/18 Tyshawn Yap Equity Research AnalystGerontological Nurse Practitioner 06/14/25 documented as of this encounter
--- OUTSIDE RECORDS SUMMARY | 2025-06-15 07:47 | XMS_ITS | Encounter Summary ---
Author Organization [employer] Address [address] [place] [address] [address] [place] [address] Care Team Providers Care Industrial Psychology Teacher Name Role Phone Farhana Horn DO Primary Care Provider + [phone] Encounter Details Date Type Department Care Team (Late st Contact Info) Description 09/12/[address] [facility] [address] [place], [place] [phone] Farhana Horn DO [address] [place] [address] Social History Tobacco Use Types Packs/Day Years [...] on filedocumented in this encounter Care Teams Industrial Psychology Teacher Relationship Specialty Start Date End Date Farhana Horn DO [address] [place], [place] [phone] PCP - General Family Medicine 09/09/18 Tyshawn Yap Band BookerRegulator Pin Inserter 06/14/25 documented as of this encounter
== END 2025-06-15 07:41 | disposition home or self-care (01) ==
LOC: HO.NEURO 07:40
PROVIDERS: PCP Family Medicine; Visit Provider Family Medicine
DX: M79.601 Pain in right arm (principal); M79.602 Pain in left arm; R20.2 Paresthesia of skin
CPT/HCPCS: 95886; 95913

== ENCOUNTER → 2025-06-15 07:42 | Outpatient (BNV) | payer MEDICAID, SELFPAY | PROVIDERS: PCP Family Medicine; Visit Provider Psychiatry & Neurology Neurology | DX: M79.621 Pain in right upper arm (principal); M79.622 Pain in left upper arm | CPT/HCPCS: 95886; 95911 ==

== ENCOUNTER 2025-07-01 12:37 | Outpatient (AMB) | payer MEDICAID, SELFPAY ==
--- NOTE | 2025-07-01 12:51 | MHC.OFFVIS ---
Vital Signs 07/01/25 12:52 Height 5 ft 1 in Weight 163 lb 2.273 oz BMI 30.8 BP 128/80 Blood Pressure Location Lt brachial Position Sitting Pulse 75 Pulse Source Pulse Oximeter Pulse Oximetry (%) 94 Oxygen Delivery Method Room Air Intake Visit Reasons: Hypoxia Waiter/Waitress Head Required: No Accompanied by: Self / Same As Patient Allergies Penicillins (PENICILLINS) Allergy (Severe, Verified 07/01/25 12:55) RASH dulaglutide (From Trulicity) Adverse Reaction (Mild, Verified 07/01/25 12:55) Abdominal Pain HPI Comments Details: The patient is a 54 year woman with known history obstructive sleep apnea in addition to headaches. She had been having more headaches recently. He has been on CPAP. The CPAP therapy has been affecting beneficial since 2018 when she was initially diagnosed with a sleep study. Appeared that she had a REM related sleep disorder in addition to significant periodic limb movements. He was she was placed on CPAP through [facility]. I do not have access to the current settings on the CPAP machine. We will request an air view access to be able to adjust the machine accordingly. The patient ultimately started having worsening symptoms of headaches and also difficulty tolerating the the CPAP and she was sent for repeat study. The repeat studies she just had couple months ago. I did review. During the hip mg part she had minimal REM sleep and therefore not significant sleep apnea. She was hypoxic during the study. I do believe that based on the fact that she has a REM related sleep disorder the fact that she did not have any significant REM sleep during the 2nd study this made it nondiagnostic. I do believe the patient does benefit from her CPAP. Will just have to adjust the CPAP accordingly. Once I get access to air view we can go ahead and check her response to therapy and adjust the machine. Once she can not tolerate the CPAP we can request an overnight oximetry to make sure that she does not need oxygen with it. The patient also has periodic limb movements. She has already beyond Neurontin. I do believe the higher dose can help mitigate those symptoms. The patient also complains of dyspnea on exertion. Apparently back in October the patient did have a CT scan of the chest which I personally reviewed. She does have a 6 mm ill-defined pulmonary nodule in the left hemithorax that will need follow-up. The patient will also need pulmonary function studies. 07/01/2025 the patient is here for pulmonary follow-up visit. Overall the patient is doing a little better with the CPAP. She is using the CPAP every night. CPAP therapy has been affecting beneficial. She is tolerating the adjustments well. Seems to be tolerating it throughout the night. She is also using the fluticasone nasal spray. This is helpful. Although she still complaining of significant headaches. She is awaiting the neurology evaluation. In the meantime she will try Afrin for 5 days to see make sure that is not significant sinusitis and sinus pressure. Unfortunately she can not use Sudafed because of the history of high blood pressure. In the meantime she has underlying pulmonary nodules. She does have a scheduled CAT scan of the chest. Once I review and I can let her know if any significant findings. The patient otherwise without any other complaints. She is hopefully going to see Neurology as well to help with the headaches. she also has some discomfort in her back area on the thorax region. Does have some tense muscles. When looking on the CT scan of the chest that she had previously there significant bone spurs that are forming on the right side of the vertebral bodies. In there has for corresponding to her discomfort on the right side. The patient will likely need additional imaging studies of her cervical neck. She can discuss that further with urology. [facility] Medical History (Updated 04/27/25 @ 21:01 by Randal Stone MD) Pulmonary nodule Chronic rhinitis Dyspnea Nocturnal hypoxia Periodic limb movement sleep disorder Abnormal REM sleep CARLOS (obstructive sleep apnea) Type 2 diabetes mellitus Diverticulosis Renal calculi Gastric varices Migraine headache Depression GERD (gastroesophageal reflux disease) Diabetes mellitus Adrenal nodule IBS (irritable bowel syndrome) HTN (hypertension) Hyperlipemia Surgical History History of surgery History of esophagogastroduodenoscopy (EGD) Hx of colonoscopy Hx of tubal ligation Hx of discectomy Family History Father Hx of type 1 diabetes mellitus History of epilepsy Mother Family history of high blood pressure Hx of cancer of uterus Social History Household Members Other:: daughter Housing: House Alcohol intake: never Patient Tobacco Use Status: Never used Tobacco Current occupational status: employed Current occupation: [employer]- right handed Sexual orientation: Straight/Heterosexual Gender identity: Female Female Reproductive History Menstrual Age of Menarche: 10 Review of Systems Const Reports headache(s), Denies weight gain and Denies weight loss Eyes Reports no additional complaints ENT Reports no additional complaints, Reports headache(s), Reports sinus pain and Reports sinus pressure Card Reports no additional complaints and Reports dyspnea on exertion Resp Reports dyspnea on exertion GI Reports abdominal pain (Epigastric) Reports no additional complaints Musc Reports no additional complaints Neuro Reports no additional complaints and Reports headache(s) Psych Reports no additional complaints Endo Reports no additional complaints Physical Exam Vital Signs: Last Vital Signs Pulse 75 07/01/25 12:52 BP 128/80 07/01/25 12:52 Pulse Ox 94 07/01/25 12:52 Oxygen Delivery Method Room Air 07/01/25 12:52 BMI result Body Mass Index 30.8 Const General: healthy appearing and no acute distress Nutritional Appearance: obese Orientation/consciousness: patient oriented x3 HEENT Head: Yes normocephalic Neck Neck: Yes normal visual inspection Chest Chest palpation & inspection: normal inspection of the chest Resp Effort & Inspection: normal respiratory effort, able to speak in complete sentences, no tracheal deviation and symmetric chest movement Auscultation: clear to auscultation bilaterally Cardio Rate: regular rate GI Palpation (GI): Soft to palpation Auscultation: normal bowel sounds General: Yes no CVA tenderness Back/Spine/Pelvis Back: no CVA tenderness Skin General skin exam: elasticity normal, turgor normal and dry skin Neuro General: patient oriented x3 Psych Appearance: grossly normal Mental Status: mental status grossly normal Assessment & Plan Assessment & Plan (1) CARLOS (obstructive sleep apnea): Comment: REM related sleep disorder Code(s): G47.33 - Obstructive sleep apnea (adult) (pediatric) Category: Medical (2) Abnormal REM sleep: Code(s): G47.8 - Other sleep disorders Category: Medical (3) Periodic limb movement sleep disorder: Code(s): G47.61 - Periodic limb movement disorder Category: Medical (4) Nocturnal hypoxia: Code(s): G47.34 - Idiopathic sleep related nonobstructive alveolar hypoventilation Category: Medical (5) Dyspnea: Comment: Interstitial changes at the bases ?aspiration related changes Code(s): R06.00 - Dyspnea, unspecified Category: Medical Qualifiers: Dyspnea type: dyspnea on exertion Qualified Code(s): R06.09 - Other forms of dyspnea (6) Chronic rhinitis: Code(s): J31.0 - Chronic rhinitis Category: Medical (7) Pulmonary nodule: Code(s): R91.1 - Solitary pulmonary nodule Category: Medical Plan continue APAP fluticasone nasal spray start Afrin x 5 days continue gabapentin 600mg QHS Repeat CT chest 10/2025 reflux diet F/U 24-6 months Medications: New oxymetazoline 0.05% (Afrin (oxymetazoline)) 2 sprays intranasal Q12H PRN 22 mL 0RF nasal congestion 5 days gabapentin 600 mg PO BEDTIME 90 tabs 3RF 90 days albuterol sulfate 90 mcg/actuation 2 inhalations inhalation Q6H PRN 18 grams 12RF shortness of breath or wheezing 30 days J44.9 - Chronic obstructive pulmonary disease, unspecified Discontinued gabapentin Discontinued Reason: Duplicate 600 mg (2 x 300 mg) PO .QHS 30 days 60 caps 5RF Coding Level of Care Code Est Pt Level 4 (59683) Diagnoses CARLOS (obstructive sleep apnea) G47.33 Abnormal REM sleep G47.8 Periodic limb movement sleep disorder G47.61 Nocturnal hypoxia G47.34 Dyspnea on exertion R06.09 Dyspnea type: dyspnea on exertion Chronic rhinitis J31.0 Pulmonary nodule R91.1 Time Spent (min) 16
[2025-07-01 12:52] VITALS: BP 128/80; PULSE 75; O2SAT 94; BMI 30.8
--- OUTSIDE RECORDS SUMMARY | 2025-07-01 15:44 | XMS_ITS | Encounter Summary ---
Author Organization [employer] Address [address] [place] [address] [address] [place] [address] Care Team Providers Care Coverage Analyst Name Role Phone Kory Farhana Primary Care Provider + [phone] Encounter Details Date Type Department Care Team ([facility] st Contact Info) Description 12/20/2023 Orders Only [facility] MEDICINE [address] [place] [address] ProviderPantera MD Social History Tobacco Use Types [...] the past 12 months, has t he Watsin, gas, oil or water [employer] threatened to shut off services in your [...] documented as of this encounter Care Teams Coverage Analyst Relationship Specialty Start Date End Date Farhana Horn DO [address] [place] [address] PCP - General Family Medicine 09/09/18 Tyshawn Yap Newspaper Photo EditorWet Suit Gluer 06/14/25 documented as of this encounter
--- OUTSIDE RECORDS SUMMARY | 2025-07-01 15:44 | XMS_ITS | Clinical Summary ---
Author Organization [facility] Address [address] [facility] [address] [place] [phone] Phone Care Team Providers Care Caustic Room Operator Name Role Phone Farhana Horn Primary Care Provider [phone] Allergies Active Allergy Reactions Criticality Noted Date [...] file Medical Devices Not on file [place] [address] [address] [place] [address] NON NSPG PCP [employer] [employer] [place] [place] [address] NON NSPG PCP [facility] [facility] [place] NON NSPG PCP S[facility] [employer] [facility] NON NSPG PCP S[facility] [employer] [facility] NON NSPG PCP [employer] [place] NON NSPG PCP S[employer] NON NSPG PCP S[employer] [place] NON NSPG PCP S[employer] [place] NON NSPG PCP [employer] Care Teams Caustic Room Operator Relationship Specialty Start Date End Date Farhana Horn DO [address] [place] [address] PCP - General Family Medicine 01/15/18 Additional Source Comments The information contained in this document represents components of the legal health record. It is not the complete legal health record.[facility]
--- OUTSIDE RECORDS SUMMARY | 2025-07-01 15:45 | XMS_ITS | Encounter Summary ---
Author Organization [employer] Address [address] [place] [address] [address] [place] [address] Care Team Providers Care Optimization Specialist Name Role Phone Farhana Horn DO Primary Care Provider + [phone] Encounter Details Date Type Department Care Team (Latest Contact Info) Description 10/16/[address] [facility] CONVERSIONS Dental, Provider, DDS Social History [...] on filedocumented in this encounter Care Teams Optimization Specialist Relationship Specialty Start Date End Date Farhana Horn DO [address] [place] [address] PCP - General Family Medicine 09/09/18 Tyshawn Yap Pathology ManagerPipe Insulator Helper 06/14/25 documented as of this encounter
--- OUTSIDE RECORDS SUMMARY | 2025-07-01 15:45 | XMS_ITS | Encounter Summary ---
Author Organization [employer] Address [address] [place] [address] 7 [place] [address] Care Team Providers Care Pound Keeper Name Role Phone Farhana Horn DO Primary Care Provider + [phone] Encounter Details Date Type Department Care Team (Late st Contact Info) Description 09/12/[address] [facility] MEDICINE [address] [place], [place] [phone] Farhana Horn DO [address] [place] [address] Social History Tobacco Use Types Packs/Day Years [...] on filedocumented in this encounter Care Teams Pound Keeper Relationship Specialty Start Date End Date Farhana Horn DO [address] [place], [place] [phone] PCP - General Family Medicine 09/09/18 Tyshawn Yap Gps Navigation InstallerSenior Cytogenetic Technologist 06/14/25 documented as of this encounter
--- OUTSIDE RECORDS SUMMARY | 2025-07-01 15:45 | XMS_ITS | Encounter Summary ---
Author Organization [employer] Address [address] [place] [address] 7 [place] [address] Care Team Providers Care Hand Leather Trimmer Name Role Phone Farhana Horn DO Primary Care Provider + [phone] Reason for Visit * Reason Comments Med Refill Encounter Details Date Type Department Care Team ([facility] st Contact Info) Description 02/11/2025 Refill [facility] MED[facility]INE [address] [place] [address] Farhana Horn DO [address] [place] [address] Social History Tobacco Use Types Packs/Day Years [...] documented as of this encounter Care Teams Hand Leather Trimmer Relationship Specialty Start Date End Date Farhana Horn DO [address] [place] [address] PCP - General Family Medicine 09/09/18 Tyshawn Yap Group TesterDental Office Assistant 06/14/25 documented as of this encounter
--- OUTSIDE RECORDS SUMMARY | 2025-07-01 15:45 | XMS_ITS | Encounter Summary ---
Author Organization [employer] Address [address] [place] [address] [address]t [place] [address] Care Team Providers Care Countersinker Name Role Phone Farhana Horn DO Primary Care Provider + [phone] Encounter Details Date Type Department Care Team ([facility] st Contact Info) Description 08/08/2023 Telephone [facility] MEDICINE [address] [place] [address] Farhana Horn DO [address] [place] [address] Social History Tobacco Use Types Packs/Day Years [...] t he electric, gas, oil or water Last 2 Left threatened to shut off services in your [...] documented as of this encounter Care Teams Countersinker Relationship Specialty Start Date End Date Farhana Horn DO [address] [place] [address] PCP - General Family Medicine 09/09/18 Tyshawn Yap Cycle ManagerDairy Husbandry Teacher 06/14/25 documented as of this encounter
--- OUTSIDE RECORDS SUMMARY | 2025-07-01 15:45 | XMS_ITS | Data Portability ---
Author Organization [place] [facility], Allergy Address [address] [address] Care Team Providers Care Galley Hand Name Role Phone Unavailable Primary Care Provider Assessment Encounter Date Assessment Date Assessment LastModified by Organization Details LastModified Time 05/19/2025 05/19/2025 Small cyst in the right maxillary sinus. The MRI report from [place] dated February 07 demonstrates mucosal thickening and [...] By Organization Details Last Modified Time 05/19/2025 72149 Monitor for any new or worsening symptoms. 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 , including 'globus hystericu s'; Note: Date Diagnosed : 11/01/2020 3:12 PM (F45.8) Not Available [facility] 4 02:25:45 Gastroeso phageal reflux disease without esophagit is 366883122 Active 2020 Gastro-es ophageal reflux disease without esophagit is; Note: Date Diagnosed : 11/01/2020 3:12 PM (K21.9) Not Available [facility] 4 02:25:28 Mucocele of maxillary sinus 33909686951 833541 Active 2024 SILVIO CONNOLLY MD [address] [place] [address], [facility] [place], [address] , [facility] - [facility] 5 15:58:53 Problem Notes None recorded. Medical Equipment None Reported. Allergies Allergen ID Allergen Name Allergen Category Reaction Reaction Severity Criticality Documentation Date Start Date Code Code System Note Provider Name and Address Organization Details Recorded Time 32944 Product containin g penicilli n (product) medicatio n other Not available Not available 01/21/2024 57343 8001 SNOMED React ion: other react ion, Unkno wn; Not Available [facility] 4 00:57:15 Medications Name Sig Start Date [...] suspensio n 05/19 completed Medicati on ID: [id number] B rand Name: Carafate Send Method: E-Prescr [...] eye drops 2020 active Medicati on ID: [id number] B rand Name: ketotife n fumarate Send Method: E-Prescr ibed Sub s Allowed: subs OK Speci al Instruct ion: INSTILL 1 DROP IN THE AFFECTED EYE(S) 2 TIMES A DAY NEEDED FOR ITCHING. Medicat ionGener icName: ketotife n fumarate Not Available Not Available Not Available senna 8.6 mg tablet 2020 active Medicati on ID: [id number] B rand Name: senna Se nd Method: [...] mg tablet 05/19 completed Medicati on ID: [id number] B rand Name: ondanset masha HCl Send Method: E-Prescr ibed Sub s Allowed: subs OK Speci al Instruct ion: TOME TIERA TABLETA VIA ORAL CADA 8 HORAS LAMINE SEA NECESARI O PARA LAS NAUSEAS Y LOS VOMITOS Medicati onGeneri cName: ondanset masha HCl Not Available Not Available Not Available prednison e 20 mg tablet 01/23 completed Medicati on ID: [id number] B rand Name: predniso ne Send Method: E-Prescr ibed Sub s Allowed: subs OK Speci al Instruct ion: TAKE 3 TABLETS DAILY X 3 DAYS THEN TAKE 2 TABLETS DAILY X 3 DAYS THEN TAKE 1 TABLET DAILY X 3 DAYS Med icationG enericNa me: predniso ne Not Available Not Available Not Available clonazepa m 0.5 mg tablet 2020 active Medicati on ID: [id number] B rand Name: clonazep am Send Method: [...] mg tablet 05/19 completed Medicati on ID: 255230 B rand Name: simvasta tin Send Method: [...] mg tablet 05/19 completed Medicati on ID: [id number] B rand Name: tramadol Send Method: E-Prescr [...] mg tablet 05/19 completed Medicati on ID: [id number] B rand Name: baclofen Send Method: E-Prescr ibed Sub s Allowed: subs OK Speci al Instruct ion: TOME TIERA TABLETA VIA ORAL ROSALVA VECES AL JADYN LAMINE SEA NECESARI O FOR MUSCLE SPASM/PA IN Medic ationGen ericName : baclofen Not Available Not Available Not Available Mi-Acid Gas Relief (simethic one) 80 mg chewable tablet 05/19 completed Medicati on ID: [id number] B rand Name: Mi-Acid Gas Relief(s imethico n) Send Method: E-Prescr ibed Sub s Allowed: subs OK Speci al Instruct ion: MASTIQUE Y TRAGUE TIERA TABLETA VIA ORAL CUATRO VECES AL JADYN DESPUES DE LAS COMIDAS Medicati onGeneri cName: Mi-Acid Gas Relief(s imethico n) Not Available Not Available Not Available famotidin e 20 mg tablet 05/19 completed Medicati on ID: [id number] B rand Name: famotidi ne Send Method: [...] mg capsule 01/23 completed Medicati on ID: [id number] B rand Name: cephalex in Send Method: E-Prescr ibed Sub s Allowed: subs OK Speci al Instruct ion: TAKE 1 CAPSULE EVERY 12 HOURS BY MOUTH Me dication GenericN candice: cephalex in Not Available Not Available Not Available pantopraz ole 40 mg tablet,de layed release 05/19 completed Medicati on ID: [id number] B rand Name: pantopra zole Sen d [...] mg capsule 05/19 completed Medicati on ID: [id number] B rand Name: docusate sodium S end [...] elayed release 01/23 completed Medicati on ID: [id number] B rand Name: omeprazo le Send Method: [...] unit) capsule 2020 active Medicati on ID: [id number] B rand Name: ergocalc iferol (vitamin D2) [...] TIERA TABLETA VIA ORAL CADA JADYN EN [facility] active Not Available Not Available No t Available naproxen 500 mg tablet 2020 active Medicati on ID: [id number] B rand Name: naproxen Send Method: E-Prescr ibed Sub s Allowed: subs OK Speci al Instruct ion: TAKE ONE TABLET BY MOUTH TWICE A DAY WITH FOOD ONLY NEEDED M edicatio nGeneric Name: naproxen Not Available Not Available Not Available oxycodone 5 mg tablet 01/23 completed Medicati on ID: [id number] B rand Name: oxycodon e Send Method: [...] mg tablet 2020 active Medicati on ID: [id number] B rand Name: Pain Relief Extra Strength [...] Available Not Available No t Available FreeStyle [place] Lite kit USE DIRECTED TO TEST BLOOD SUGAR TWICE DAILY active Not Available Not Available No t Available diclofena c 1 % topical gel 01/23 completed Medicati on ID: [id number] B rand Name: diclofen ac sodium S [...] Updated DateTime 05/19/2025 152.4 cm 31.2 kg/m2 21714.78 g EDIE OSORIO [place] - [facility] 05/19/2025 15:41:37 Social History None recorded. Functional Status None recorded. Mental Status None recorded. Family History Nothing Reported. Medical History No medical history recorded. Gynecological HistoryNo gynecological history recorded. Obstetrics History GPAL:G 0 P 0 0 0 0 Past Encounters Encounter ID Performer Location Encounter Start Date Encounter Closed Date Diagnosis/Indication Diagnosis SNOMED-CT Code Diagnosis ICD10 Code Diagnosis IMO Codes Diagnosis Note [id number] SILVIO CONNOLLY MD [facility] [address] [address] 05/19/2025 14:57:47 05/19/2025 15:59:01 Mucocele of maxillary sinus [id number] J34.1 [id number] Health Concerns Section Related Observation LastModified by Organization Detai ls LastModified Time None Recorded Concern Status LastModified by Organization Details LastModified Time None Recorded Advance Directives Directive None Recorded Payers Insurance Date Sequence Insurance Name Policy Number Policy Saucedo Covered Member ID Saucedo Member ID Guarantor Name 05/19/2025 1 [place] [facility] Tri Bowens [id number] Tri Bowens Notes Date Note Type Note Provider Name and Address Organization Details Recorded Time 05/19/2025 text/html ROS as noted in the HPI repairer - friend right max sinus cyst 02/07/25 [place], MRI head non contrast mucosal thickening and retention cyst in right max sinus Tri Bowens is a 54-year-old female who presents for evaluation of a small cyst in the right maxillary sinus identified on an MRI performed in [place] in February. The patient reports no current symptoms such as nasal bleeding or issues with her sense of smell. She previously received antibiotics for a suspected infection, which resulted in improvement. She denies any history of nasal surgery. SILVIO CONNOLLY MD [address] [place] [address], [place], [address], [facility] - [facility] 05/19/2025 15:59:49 OBGyn Episode No OBEpisode recorded.
--- OUTSIDE RECORDS SUMMARY | 2025-07-01 15:45 | XMS_ITS | Encounter Summary ---
Author Organization [employer] Address [address] [place] [address] 7 [place] [address] Care Team Providers Care Shipwright Name Role Phone Farhana Horn DO Primary Care Provider + [phone] Reason for Visit * Reason Comments Med Refill Encounter Details Date Type Department Care Team ([facility] st Contact Info) Description 03/27/2025 Refill [facility] MEDICINE [address] [place] [address] Farhana Horn DO [address] [place] [address] Social History Tobacco Use Types Packs/Day Years [...] documented as of this encounter Care Teams Shipwright Relationship Specialty Start Date End Date Farhana Horn DO [address] [place] [address] PCP - General Family Medicine 09/09/18 Tyshawn Yap Network CablerCorporate Technical Recruiter 06/14/25 documented as of this encounter
--- OUTSIDE RECORDS SUMMARY | 2025-07-01 15:45 | XMS_ITS | Encounter Summary ---
Author Organization [facility] Address [address] [place] [address] 7 [place] [address] Care Team Providers Care Stock Chaser Name Role Phone Farhana Horn DO Primary Care Provider + [phone] Reason for Visit * Reason Comments Med Refill Encounter Details Date Type Department Care Team (Late st Contact Info) Description 12/13/2022 Refill [facility] [address] [place], [place] [phone] [facility] [address] [place] [address] Hyperlipidemia, unspecified hyperlipidemia type Social History Tobacco [...] Date End Date Farhana Horn DO [address] [place], [place] [phone] PCP - General Family Medicine 09/09/18 Tyshawn Yap Hammerer HelperWeb Press Operator 06/14/25 documented as of this encounter
--- OUTSIDE RECORDS SUMMARY | 2025-07-01 15:45 | XMS_ITS | Clinical Summary ---
Author Organization [employer] Address [address] [place] [address] 7 [place] [address] Care Team Providers [employer] Name Role Phone ZeeFarhana snyder Primary Care Provider + [phone] Allergies Active Allergy Reactions Criticality Noted Date [...] 5 Active Blood Glucose Monitoring Suppl (FreeStyle [place] Lite) w/Device kit Use to test blood [...] completed the intake process with [facility] at [facility] after today's session. 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 -DEXA with osteopenia JUL 2023 -STI/HIV screen [...] nightly -s/p optho eval Apr 2023 at [facility] -foot exam next visit* Allergic rhinitis [...] -f/u with neurology as scheduled -advised contact [facility] if no improvement Irritable bowel syndrome [...] Encounters Date Type Department Care Team Description 06/23/2025 Telephone [facility] [address] [place] [phone] Farhana Horn DO Referral 06/14/2025 Telephone [facility] [address] [place] [address] Farhana Horn DO Care Coordination (ICP Care Plan) 05/24/2025 Telephone [facility] [address] [place] [address] Farhana Horn DO 05/18/[address] [address] Farhana Horn DO Durable Medical Equipment (DME RX for 24 Hour Pulse Oximetry([employer])) 05/10/[address] [address] Farhana Horn DO 04/27/2025 11:30 AM EDT Office Visit [address] [address] Farhana Horn DO Type 2 diabetes mellitus without complication, without long-term current use of insulin ([facility]) (Primary Dx); Essential hypertension; Other hyperlipidemia; Major depression, recurrent, chronic (CMS/HCC); Chronic migraine; Chronic gastroesophageal reflux disease; Allergic rhinitis, unspecified seasonality, unspecified trigger; Obstructive sleep apnea; Nephrolithiasis; Adrenal nodule (CMS/HCC); Chronic sinusitis, unspecified location; Abnormal brain MRI; Hypoxia; Paresthesia and pain of both upper extremities; Lung nodule; Healthcare maintenance; Dietary counseling; Exercise counseling 04/27/2025 Travel 04/26/[address] [address] Farhana Horn DO Chart Prep 04/21/[address] [address] Farhana Horn DO MRI 04/20/[address] [address] Farhana Horn DO Nurse Triage 04/08/[address] [address] Farhana Horn DO Imaging letter 04/08/2025 Results Follow-Up [address] [place] [address] Jermaine Pagan MD XR Foot 3+ Views Left 04/07/2025 Orders Only [facility] [address] [place] [address] Farhana Horn DO Hypoxia (Primary Dx) 04/02/[address] [address] Farhana Horn, Results from Last 3 Months Immunizations Immunization Administration [...] (CMS/HCC) Healthcare maintenance Dietary counseling Exercise counseling LYME [...] (CMS/HCC) Healthcare maintenance Dietary counseling Exercise counseling JERMAINE [...] complication, without long-term current use of insulin ([facility]/HCC) Essential hypertension Other hyperlipidemia Major depression, recurrent, [...] without long-term current use of insulin (CMS/HCC) FECAL GLOBIN BY IMMUNOCHEMISTRY Routine 02/04/2025 12:00 [...] AM EDT HPV DNA, LOW/HIGH RISK Routine 5 9:07 AM EST PAP SMEAR Routine 10/27/2024 [...] Vitamin D 25-OH Total 27.9(L) >30 ng/mL [facility] Comment: Health Based Reference Values*< 20 ng/mL Anhccxeav60-94 ng/mL Insufficient> 30 ng/mL Sufficient*Smooth VEGA. N [...] ORDERABLES Final R esult Performing Organization Address [facility] Co de Phone Number [facility] [address] [place] [phone] * Lyme Disease Ab with Reflex to Blot (IgG, IgM) (04/27/2025 1:18 PM EDT) [facility] Lyme Antibody Screen <0.90 index [facility] Comment:Index Interpretation ----- < 0.90 Negative [...] when erythemamigrans is apparent.THIS TEST WAS PERFORMED AT:[employer] [place] [phone] WORKMAN MD Lyme Blot TNP [facility] 04/27/2025 1:18 PM EDT 04/27/2025 4:17 PM EDT Farhana Horn DO LAB BLOOD ORDERABLES Final R esult Performing Organization Address [facility]/ZIP Co de Phone Number [facility] [address] [place] [phone] * (ABNORMAL) Sed Rate by Modified Westergren (04/27/2025 1:18 PM EDT) Erythrocyte Sedimentation Rate 23(H) 0 - 20 MM/HR [facility] Comment:Patients with polycy themia and many hemoglobin abnormalitiesmay have depressed sed rates whereas patients with anemiamay have elevated sed rates. Blood Venous blood specimen / Unknown 04/27/2025 1:18 PM EDT 04/27/2025 4:17 PM EDT us Farhana Horn DO LAB BLOOD ORDERABLES Final R esult [facility] [address] [place] [phone] * (ABNORMAL) CBC (04/27/2025 1:18 PM EDT) Pathologist [facility] White Blood Count 8.1 4.8 - 10.8 X10*3/uL [facility] Red Blood Count 4.60 4.20 - 5.50 X10*6/uL [facility] Hemoglobin 12.6 12.0 - 16.0 g/dl [facility] Hematocrit 39.0 37.0 - 47.0 % [facility] Mean Corpuscular Volume 84.8 80.0 - 98.0 fL [facility] Mean Corpuscular Hemoglobin 27.4 27.0 - 33.0 pg [facility] Mean Corpuscular HGB Conc 32.3 31.0 - 35.0 g/dl [facility] Red Cell Distribution Width 13.0 11.0 - 16.0 % [facility] Platelet Count 329 160 - 400 X10*3/uL [facility] Mean Platelet Volume 8.9(L) 9.4 - 12.3 fL [facility] NRBC Pct Auto 0.0 0.0 - 0.2 /100WBC [facility] NRBC Abs Auto 0.000 0.0 - 0.012 X10*3/uL [facility] Blood Venous blood specimen / Unknown 04/27/2025 1:18 PM EDT 04/27/2025 4:17 PM EDT Farhana Horn LAB BLOOD ORDERABLES Final R esult Performing Organization Address [facility] Co de Phone Number [facility] [address] [place] [phone] * Rheumatoid Factor (04/27/2025 1:18 PM EDT) Rheumatoid Factor <13.0 <15.0 IU/mL [facility] Blood Venous blood specimen / Unknown 04/27/2025 1:18 PM EDT 04/27/2025 4:17 PM EDT Farhana Horn LAB BLOOD ORDERABLES Final R esult Performing Organization Address [facility] Co de Phone Number [facility] [address] [place] [phone] * C-reactive Protein (04/27/2025 1:18 PM EDT) C Reactive Protein 0.26 < or = 0.50 mg/dL [facility] Blood Venous blood specimen / Unknown 04/27/2025 1:18 PM EDT 04/27/2025 4:17 PM EDT Farhana Horn LAB BLOOD ORDERABLES Final R esult Performing Organization Address [facility] Co de Phone Number [facility] [address] [place] [phone] * JERMAINE Screen,IFA, with Reflex to Titer and Pattern (04/27/2025 1:18 PM EDT) Anti Nuclear Antibody Screen NEGATIVE NEGATIVE [facility] Comment:JERMAINE IFA is a first l [...] clinicallysuspected inflammatory myopathies.AC-0: NegativeInternational Consensus on JERMAINE Patterns(https://doi.org/10.1515/vwyj-6714-4677)For additional information, please refer tohttp://education.[employer]/faq/UAW739(This link is being provided for informational/educational purposes only.)THIS TEST WAS PERFORMED AT:[employer] [place] [phone] WORKMAN MD JER[facility]INE [facility]iter [facility] JERMAINE Pattern [facility] JERMAINE TITER 2 (REF LAB) [facility] JERMAINE Pattern 2 [facility] JERMAINE TITER 3 [facility] JERMAINE PATTERN 3 [facility] Blood Venous blood specimen / Unknown 04/27/2025 1:18 PM EDT 04/27/2025 4:17 PM EDT Farhana Horn Recommind LAB BLOOD ORDERABLES Final R esult Performing Organization Address [facility]/ZIP Co de Phone Number [facility] [address] [place] [phone] * TSH (04/27/2025 1:18 PM EDT) Thyroid Stimulating Hormone 1.49 0.32 - 4.0 uIU/mL [facility] Comment:TSH 3rd Generation ( [employer]) Blood Venous blood specimen / Unknown 04/27/2025 1:18 PM EDT 04/27/2025 4:17 PM EDT Farhana Horn LAB BLOOD ORDERABLES Final R esult [facility] [address] [place] [phone] * T4, Free (04/27/2025 1:18 PM EDT) Free T4 (Free Thyroxine) 1.01 0.71 - 1.85 ng/dL [facility] Blood Venous blood specimen / Unknown 04/27/2025 1:18 PM EDT 04/27/2025 4:17 PM EDT Farhana Horn LAB BLOOD ORDERABLES Final R esult Performing Organization Address [facility] de Phone Number [facility] [address] [place] [phone] * (ABNORMAL) Hemoglobin A1c (04/27/2025 1:18 PM EDT) Pathologist [facility] Hemoglobin A1c 7.0(H) <6.0 % [facility] Comment:Hemoglobin A1C Refer ence Range Adults: 4.8 - 6.0 % Non diabetic: < 6.0 % Goal: < 7.0 %Additional Action Suggested: > 8.0 %Note: Hemoglobin A1c results are invalid for patients with abnormal amounts of HbF. Blood transfusions may impact the HbA1c concentration in the patient sample. Estimated Average Glucose 154 mg/dL [facility] Comment:eAG = Estimated ave rage glucose which is %A1C expressed asaverage glucose, using the formula of the B8A-JomeivnPdtlfae Glucose study (ADAG), Diabetes Care, Vol.31,#8,Apr. 2007 Blood Venous blood specimen / Unknown 04/27/2025 1:18 PM EDT 04/27/2025 4:17 PM EDT Farhana Horn DO LAB BLOOD ORDERABLES Final R esult Performing Organization Address [facility] Co de Phone Number [facility] [address] [place] [phone] * (ABNORMAL) Hepatic Function Panel (04/27/2025 1:18 PM EDT) Bilirubin, Total 0.2 0.0 - 1.0 mg/dL [facility] Bilirubin, Direct <0.2 0.0 - 0.5 mg/dL [facility] Aspartate Amino Transferase 35(H) 5 - 31 U/L [facility] Alanine Aminotransferase 44(H) 0 - 31 U/L [facility] Total Protein 7.3 6.5 - 8.0 g/dL [facility] Albumin Level 4.3 3.5 - 5.0 g/dL [facility] Alkaline Phosphatase 130(H) 39 - 117 U/L [facility] Blood Venous blood specimen / Unknown 04/27/2025 1:18 PM EDT 04/27/2025 4:17 PM EDT us Farhana Horn DO LAB BLOOD ORDERABLES Final R esult [facility] [address] [place] [phone] * (ABNORMAL) Lipid Panel, Standard (04/27/2025 1:18 PM EDT) Pathologist [facility] Triglycerides 134 <150 mg/dL [facility] Comment:Desirable Triglyceri de: less than 150 mg/dLBorderline High Triglyceride 150-199 mg/dLHigh Triglyceride: 200-499 mg/dLVery High Triglyceride: greater than or equal to 5OO mg/dL Cholesterol 137 <200 mg/dL [facility] Comment:Desirable Cholestero l: less than 200 mg/dLBorderline High Cholesterol: 200-239 mg/dLHigh Cholesterol: greater than 239 mg/dL LDL Cholesterol Calculated 76 <100 mg/dL [facility] Comment:Desirable LDL: less than 100 mg/dLNear Optimal/Above Optimal LDL: 110- 129 mg/dLBorderline High LDL: 130-159 mg/dLHigh LDL: 160-189 mg/dLVery High LDL: greater than or equal to 190 mg/dL HDL Cholesterol 35(L) >40 mg/dL [facility] Comment:Desirable HDL: great er than 40 mg/dL Note: This HDL assay may give artificially low results in patients with liver disease. Blood Venous blood specimen / Unknown 04/27/2025 1:18 PM EDT 04/27/2025 4:17 PM EDT Farhana Horn DO LAB BLOOD ORDERABLES Final R esult Performing Organization Address [facility] Co de Phone Number [facility] [address] [place] [phone] * (ABNORMAL) Basic Metabolic Panel (04/27/2025 1:18 PM EDT) Sodium 140 135 - 145 mmol/L [facility] Potassium 3.9 3.3 - 5.1 mmol/L [facility] Chloride 106 96 - 108 mmol/L [facility] Carbon Dioxide 26 22 - 29 mmol/L [facility] Anion Gap 12 12 - 20 [facility] Urea Nitrogen (BUN) 13 9 - 16 mg/dL [facility] Creatinine, Serum 0.75 0.5 - 1.4 mg/dL [facility] Estimated Glomerular Filt Rate >60 [facility] Comment:Chronic Kidney Disea se: Estimated GFR < 60 mL/min/1.10q6Brddjh Kidney Disease: Estimated GFR < 15 mL/min/1.73m2 Glucose 185(H) 60 - 115 mg/dL [facility] Calcium 9.2 8.4 - 10.2 mg/dL [facility] Blood Venous blood specimen / Unknown 04/27/2025 1:18 PM EDT 04/27/2025 4:17 PM EDT us Farhana Horn DO LAB BLOOD ORDERABLES Final R esult Performing Organization Address [facility]/ZIP Co de Phone Number [facility] [address] [place] [phone] * (ABNORMAL) POCT HGB A1C (04/27/2025 11:29 AM EDT) Hemoglobin A1C 7.0(A) 4.0 - 5.7 % QC Media Lot # [id number] Lot# Expiration Date Blood 04/27/2025 11:2 9 AM EDT Farhana Horn DO POINT OF CARE TEST ENTER/PAUL T ORDERABLES Final Result * POCT Glucose (04/27/2025 11:29 AM EDT) Glucose Blood, POC 166 60 - 200 mg/dL [employer] Lot # [id number] Lot# Expiration Date Blood Capillary blood specimen / Unknown 04/27/2025 11:29 AM EDT Farhana Horn DO POINT OF CARE TEST ENTER/PAUL T ORDERABLES Final Result * Fecal Globin By Immunochemistry (02/04/2025 12:00 AM EDT) Fecal Globin By Immunochemistry SEE NOTE [employer] Comment: FECAL GLOBIN BY IMMUNOCHEMISTRY Micro Number: [id number] Test Status: Final Specimen Source: Insure (tm) fobt test card Specimen Quality: Adequate Fecal [...] FLUIDS AND STOOLS O RDERABLES Final Result [facility] [address] [place] [address], [place] [phone] [employer] [address] [place] [phone] * Albumin, Random Urine W/Creatinine (01/29/2025 11:23 AM EDT) Creatinine, Urine 174.41 mg/dL [facility] Microalbumin Urine 12.0 mg/L [facility] Microalbum Creatinine Ratio Ur 6.8 <30 ug/mg cr [facility] Comment:Albumin/Creatinine R atio Reference Ranges: Normal: < 30 ug/mg creatinine Microalbuminuria: 30 - 300 ug/mg creatinineClinical Albuminuria: > 300 ug/mg creatinine Urine (Urine, Random) 01/29/2025 11:23 AM EDT 01/29/2025 1:03 PM EDT Farhana Horn LAB URINE ORDERABLES Final R esult Performing Organization Address City/[facility]/ZIP Co de Phone Number [facility] [address] [place] [phone] * Hepatitis C Antibody with Reflex to HCV, RNA, Quantitative, Real-Time PCR (01/29/2025 11:23 AM EDT) Hepatitis C Antibody Nonreactive Nonreactive [facility] Comment:Antibodies to HCV no t detected; does not exclude early acuteHCV infection. Blood Venous blood specimen / Unknown 01/29/2025 11:23 AM EDT 01/29/2025 1:24 PM EDT us Farhana Horn DO LAB BLOOD ORDERABLES Final R esult Performing Organization Address City/[facility]/ZIP Co de Phone Number [facility] [address] [place] [phone] * HIV-1/2 Antigen and Antibodies, Fourth Generation, with Reflexes (01/29/2025 11:23 AM EDT) HIV AB/AG Nonreactive Nonreactive [facility] Comment:HIV-1 p24 Ag and/or HIV-1/HIV-2 Ab not detected.A test result that is nonreactive does not exclude thepossibility of exposure to or infection with HIV-1 and/orHIV-2. Nonreactive results in this assay for individualswith prior exposure to HIV-1 and/or HIV-2 may be due toantigen and antibody levels that are below the limit ofdetection of this assay.The [employer] HIV Ag/Ab Combo assay result andsupplemental assay results should be interpreted inconjunction with the patient's clinical presentation,history and other laboratory results. If the results areinconsistent with clinical evidence, additional testing issuggested to confirm the result. Blood Venous blood specimen / Unknown 01/29/2025 11:23 AM EDT 01/29/2025 1:24 PM EDT us Farhana Horn DO LAB BLOOD ORDERABLES Final R esult Performing Organization Address [facility]/ZIP Co de Phone Number [facility] [address] [place] [phone] * Colposcopy (12/02/2024 12:00 AM EDT) us Historical Provider MD IN CLINIC/BEDSIDE ORDERAB LES Final Result Performing Organization Address [facility] Co de Phone Number [facility] [address] [place] [phone] * (ABNORMAL) HPV DNA, Low/High Risk (10/27/2024 9:07 AM EST) HPV High Risk Positive(A) Negative [facility] HPV Genotype 16 Negative Negative [facility] HPV Genotype 18 Negative Negative [facility] Comment:HPV testing performe d at [facility] (CLIA#[id number]), [address] [place] [address].Testing for HPV was performed using the Milana [...] Provider LAB BLOOD ORDERAB LES Final Result [facility] [address] [place] [phone] * Pap Smear (10/27/2024 9:07 AM EST) 10/27/2024 9:07 AM EST 10/27/2024 2:15 PM EST Narrative [facility] - 11/02/2024 3:56 PM EST ----- ------- Name: Tri Bowens Age/Sex: 53/F : 1970 Unit#: [id number] Attend Dr: Fabio Morin MD Re10/27/24 Status: DEP REF Location: HO.LNP Disch: ----- ------- SPEC : [id number] RECD: 10/27/24-588 STATUS: STEPHANIE GARLAND NUM: [id number] ANITA: 10/27/[address] [facility] [address]: Fabio Morin MD ENTERED: 10/27/24 SP TYPE: Pap Smr OTHR DR: Farhana Horn DO ORDERED: Pap Smear Interpretation Satisfactory for evaluation. Negative for intraepithelial lesion or malignancy. HPV High Risk: Positive HPV Genotyping 16: Negative HPV Genotyping 18: Negative Clinical Information LMP:[place] Previous PAP test:2019 Other surgery: Other history: Copies To: Farhana Horn DO [facility] [address] [place] [address] Fabio Morin MD [facility] [address] [place] [address] ----- ------- Signed (signature on file) CORI Ortez (ASC) 11/02/24 1556 ----- ------- END OF REPORT us Generic External Data Provider LAB CYTOLOGY BROOKE GREY Final Result [facility] [address], [place] [phone] * BI Mammogram Screening Tomosynthesis Bilateral (09/23/2024 10:30 AM EST) Anatomical Region Laterality Modality Breast Bilateral Mammography 09/23/2024 10:3 0 AM EST Narrative 10/04/2024 9:14 AM EST [address] [place] [address] Mammography Report Signed Patient: Tri Bowens MR#: [id number] 63 : 1970 Acct:[id number] Age/Sex: 53 / F ADM Date: 09/23/24 Loc: HO.MAMMO Attending Dr: Farhana Horn DO Ordering Physician: Farhana Horn DO Results: 1N egative Date of Service: 09/23/24 Follow Up: 1 Year From Orig inal Mammogram Procedure(s): MM tomosynthesis screening BI Accession Number(s): [id number] cc: Farhana Horn DO EXAMINATION: MM SCREENING [...] 10/04/24 0911 DD/ 1030 TD/TT: 09/23/24 1041 Buttoner: Procedure Note Donotuseinterpreter, Image - [facility] [address] [place] [address] Mammography Report Signed Patient: Wang Bowens#: [id number] 63 : 1970Acct:[id number] Age/Sex: 53 / FADM Date: 09/23/24 Loc: HO.MAMMO Attending Dr: Farhana Horn DO Ordering Physician: Farhana Hornults: 1N egative Date of Service: 09/23/24Follow Up: 1 Year From Orig inal Mammogram Procedure(s): MM tomosynthesis screening BI Accession Number(s): [id number] cc: Farhana Horn DO EXAMINATION: MM SCREENING [...] 10/04/24 0911 DD/ 1030 TD/TT: 09/23/24 1041 Buttoner: Farhana Horn DO IMG BI PROCEDURES Edited Res ult - Final * Hm Colonoscopy (01/27/2019 8:43 AM EDT) Historical Provider HEALTH MAINTENANCE Final Result from Last 3 Months or Most Recently Relevant to Health Maintenance Insurance [place] [address] C3 Care Teams Cook [employer] Relationship Specialty Start Date End Date Farhana Horn DO [address] [place] [phone] PCP - General Family Medicine 09/09/18 Tyshawn Yap [employer] PresserLoading And Unloading Supervisor 06/14/25
--- OUTSIDE RECORDS SUMMARY | 2025-07-01 15:45 | XMS_ITS | Encounter Summary ---
Author Organization [employer] Address [address] [place] [address] [address] [place] [address] Care Team Providers Care Inter Com Installer Name Role Phone ZeeFarhana snyder Primary Care Provider + [phone] Encounter Details Date Type Department Care Team ([facility] Contact Info) Description 12/07/2024 Orders Only [facility] [address] [place] [address] Carmelita Kruse Social History Tobacco Use Types [...] t he electric, gas, oil or water [employer] threatened to shut off services in your [...] ORDERAB LES Final Result Performing Organization Address [facility]/State/[facility] Co de Phone Number [facility] [address] [place] [phone] documented in this encounter Visit Diagnoses Not on filedocumented in this encounter Additional Health Concerns Assessment Noted Time PHQ-9 Depression Total Score: 13 025 10:22 AM EDT documented as of this encounter Care Teams Inter Com Installer Relationship Specialty Start Date End Date Farhana Horn DO [address] [place] [phone] PCP - General Family Medicine 09/09/18 Tyshawn Yap Agriculture SpecialistPrimer Assembler 06/14/25 documented as of this encounter
== END 2025-07-01 13:15 | disposition home or self-care (01) ==
LOC: HO.HPS 12:38
PROVIDERS: PCP Family Medicine; Visit Provider Hospitalist
DX: G47.33 Obstructive sleep apnea (adult) (pediatric) (principal); G47.8 Other sleep disorders; G47.61 Periodic limb movement disorder; G47.34 Idiopathic sleep related nonobstructive alveolar hypoventilation; R06.09 Other forms of dyspnea; J31.0 Chronic rhinitis; R91.1 Solitary pulmonary nodule
CPT/HCPCS: 99214

== ENCOUNTER → 2025-07-01 12:37 | Outpatient (BNVA) | payer MEDICAID, SELFPAY | PROVIDERS: PCP Family Medicine; Visit Provider Hospitalist | DX: G47.34 Idiopathic sleep related nonobstructive alveolar hypoventilation (principal); G47.8 Other sleep disorders; G47.61 Periodic limb movement disorder; R06.09 Other forms of dyspnea; J31.0 Chronic rhinitis; R91.1 Solitary pulmonary nodule | CPT/HCPCS: 99212 ==

== ENCOUNTER 2025-07-14 11:19 | Outpatient (AMB) | payer MEDICAID, SELFPAY ==
[2025-07-14 11:33] VITALS: BP 130/78; PULSE 78; BMI 30.3
--- NOTE | 2025-07-14 11:33 | A.OFFVIS_ITS ---
Vital Signs 07/14/25 11:33 Height 5 ft 1 in Weight 160 lb 7.944 oz BMI 30.3 BP 130/78 Blood Pressure Location Rt brachial Position Sitting Pulse 78 Intake Visit Reasons: 3m Intake Note: Tri presents to in office follow up of GERD. CC: Patient reports nausea and acid reflux sometimes. 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 Increase fluid intake and activity to promote better bowel motility. Avoid dietary triggers late night snacking. Staying upright for minimal 3 hours discussed with patient. Patient will call neurologist office to see if she can get in sooner. Patient will follow-up with us in 3 months. She was encouraged to call our office if her symptoms will get worse. She is agreeable to this plan and verbalizes understanding of instructions. She was given the opportunity to ask questions and all questions answered. ? Thank you for allowing me to participate in her care Refilled lansoprazole 30 mg PO DAILY 90 caps 3RF K21.9 ondansetron 4 mg PO Q8H PRN 20 tabs 0RF nausea and vomiting R11.0 sucralfate 1 g PO BEDTIME 90 tabs 3RF K21.9, K29.81 TODAY'S VISIT Patient is here today for follow-up. Patient reports that her symptoms of acid reflux are suppressed. Occasional epigastric pain and nausea, however not as much as before. Feels like lansoprazole and sucralfate have been working. Sometimes in the afternoon patient will have epigastric pain depending on what she eats. Patient reports however feeling bloated on many occasions. Does not know if it is related to food or when she is constipated. Patient tried Dulcolax in the past and cause diarrhea and abdominal cramping. Patient has not tried senna. 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 Patient denies melena, hematochezia, unintentional weight loss or ribbon like stools. Patient denies any dyspepsia, dysphagia or odynophagia. Patient denies eating late at night. Occasional small snacks. Patient reports that she only eats couple meals a day. [facility] Medical History (Updated 04/27/25 @ 21:01 by Randal Stone MD) Pulmonary nodule Chronic rhinitis Dyspnea Nocturnal hypoxia Periodic limb movement sleep disorder Abnormal REM sleep CARLOS (obstructive sleep apnea) Type 2 diabetes mellitus Diverticulosis Renal calculi Gastric varices Migraine headache Depression GERD (gastroesophageal reflux disease) Diabetes mellitus Adrenal nodule IBS (irritable bowel syndrome) HTN (hypertension) Hyperlipemia Surgical History History of surgery History of esophagogastroduodenoscopy (EGD) Hx of colonoscopy Hx of tubal ligation Hx of discectomy Family History Father Hx of type 1 diabetes mellitus History of epilepsy Mother Family history of high blood pressure Hx of cancer of uterus Social History Household Members Other:: daughter Housing: House Alcohol intake: never Patient Tobacco Use Status: Never used Tobacco Current occupational status: employed 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 Sexual orientation: Straight/Heterosexual Gender identity: Female Female Reproductive History Menstrual Age of Menarche: 10 Review of Systems Const Denies weight gain and Denies weight loss ENT Reports no additional complaints, Denies dysphagia and Denies odynophagia Card Reports no additional complaints Resp Reports no additional complaints GI Reports abdominal pain (Epigastric), Denies belching, Denies melena, Reports bloating, Denies change in bowel habits, Denies constipation, Denies dysphagia, Denies excessive flatus, Denies dyspepsia, Reports heartburn, Denies diarrhea, Denies loose stools, Reports nausea, Denies odynophagia and Denies vomiting Reports no additional complaints Musc Reports no additional complaints Neuro Reports no additional complaints Psych Reports no additional complaints Endo Reports no additional complaints Physical Exam Vital Signs: Last Vital Signs Pulse 78 07/14/25 11:33 BP 130/78 07/14/25 11:33 BMI result Body Mass Index 30.3 Const General: healthy appearing and no acute distress Nutritional Appearance: obese Orientation/consciousness: patient oriented x3 Resp Effort & Inspection: normal respiratory effort, able to speak in complete sentences, no tracheal deviation and symmetric chest movement Auscultation: clear to auscultation bilaterally Cardio Rate: regular rate GI Inspection: Yes normal to inspection, No distended and Yes obesity Palpation (GI): Soft to palpation, not firm, nontender and No hepatosplenomegaly present Auscultation: normal bowel sounds General: Yes no CVA tenderness Back/Spine/Pelvis Back: no CVA tenderness Skin General skin exam: elasticity normal, turgor normal and dry skin Neuro General: patient oriented x3 Psych Appearance: grossly normal Mental Status: mental status grossly normal Assessment & Plan Assessment & Plan (1) GERD (gastroesophageal reflux disease): Code(s): K21.9 - Gastro-esophageal reflux disease without esophagitis Category: Medical Qualifiers: Esophagitis presence: without esophagitis Qualified Code(s): K21.9 - Gastro-esophageal reflux disease without esophagitis (2) IBS (irritable bowel syndrome): Code(s): K58.9 - Irritable bowel syndrome, unspecified Category: Medical Qualifiers: Irritable bowel syndrome type: with constipation Qualified Code(s): K58.1 - Irritable bowel syndrome with constipation (3) Diverticulosis: Code(s): K57.90 - Diverticulosis of intestine, part unspecified, without perforation or abscess without bleeding Category: Medical (4) Postprandial abdominal bloating: Code(s): R14.0 - Abdominal distension (gaseous) (5) Constipation: Code(s): K59.00 - Constipation, unspecified Qualifiers: Constipation type: slow transit constipation Qualified Code(s): K59.01 - Slow transit constipation Plan Patient will continue taking lansoprazole daily. May take sucralfate at bedtime. Avoid dietary triggers in late night snacking. Staying upright for minimal 3 hours after meals discussed with patient. Patient will try taking Senokot 2 tablets every evening. Increase fluid intake and activity to promote bowel motility. May take simethicone as needed. However discussed with patient low FODMAP diet. List of food recommended as well as list of food to avoid given to patient. Patient will follow-up in the office in 3 months. She was encouraged to call us if she will have any GI concerning symptoms. Patient is agreeable to current plan of care and verbalizes understanding of instructions. She was given the opportunity to ask questions and all questions answered. Thank you for allowing me to participate in her care Medications: New simethicone 125 mg PO BID-QID PRN 120 caps 3RF abdominal distention K21.9 - Gastro-esophageal reflux disease without esophagitis sennosides (Natural Senna Laxative) 17.2 mg (2 x 8.6 mg) PO BEDTIME 180 tabs 3RF constipation K59.00 - Constipation, unspecified Refilled lansoprazole 30 mg PO DAILY 90 caps 3RF K21.9 - Gastro-esophageal reflux disease without esophagitis Coding Level of Care Code Est Pt Level 4 (15097) Complex visit Add On G2211 Diagnoses Gastroesophageal reflux disease without esophagitis K21.9 Esophagitis presence: without esophagitis Irritable bowel syndrome with constipation K58.1 Irritable bowel syndrome type: with constipation Diverticulosis K57.90 Postprandial abdominal bloating R14.0 Slow transit constipation K59.01 Constipation type: slow transit constipation Time Spent (min) 40 Comment 25 minutes spent with patient and additional 15 minutes spent reviewing her records
--- OUTSIDE RECORDS SUMMARY | 2025-07-14 13:47 | XMS_ITS | Data Portability ---
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 The MRI report from [place] dated February 07 demonstrates mucosal thickening and [...] By Organization Details Last Modified Time 05/19/2025 02194 Monitor for any new or worsening symptoms. 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 [place], [address] , [facility] - [facility] 5 15:58:53 Problem Notes None recorded. Medical Equipment None Reported. Allergies Allergen ID Allergen Name Allergen Category Reaction Reaction Severity Criticality Documentation Date Start Date Code Code System Note Provider Name and Address Organization Details Recorded Time 43579 Product containin g penicilli n (product) medicatio n other Not available Not available 01/21/2024 46091 8001 SNOMED React ion: other react ion, Unkno wn; Not Available [facility], [facility] 4 00:57:15 Medications Name Sig Start Date [...] suspensio n 05/19 completed Medicati on ID: [id number] B rand Name: Carafate Send Method: E-Prescr [...] eye drops 2020 active Medicati on ID: [id number] B rand Name: ketotife n fumarate Send Method: E-Prescr ibed Sub s Allowed: subs OK Speci al Instruct ion: INSTILL 1 DROP IN THE AFFECTED EYE(S) 2 TIMES A DAY NEEDED FOR ITCHING. Medicat ionGener icName: ketotife n fumarate Not Available Not Available Not Available senna 8.6 mg tablet 2020 active Medicati on ID: [id number] B rand Name: senna Se nd Method: [...] mg tablet 05/19 completed Medicati on ID: [id number] B rand Name: ondanset masha HCl Send Method: E-Prescr ibed Sub s Allowed: subs OK Speci al Instruct ion: TOME TIERA TABLETA VIA ORAL CADA 8 HORAS LAMINE SEA NECESARI O PARA LAS NAUSEAS Y LOS VOMITOS Medicati onGeneri cName: ondanset masha HCl Not Available Not Available Not Available prednison e 20 mg tablet 01/23 completed Medicati on ID: [id number] B rand Name: predniso ne Send Method: E-Prescr ibed Sub s Allowed: subs OK Speci al Instruct ion: TAKE 3 TABLETS DAILY X 3 DAYS THEN TAKE 2 TABLETS DAILY X 3 DAYS THEN TAKE 1 TABLET DAILY X 3 DAYS Med icationG enericNa me: predniso ne Not Available Not Available Not Available clonazepa m 0.5 mg tablet 2020 active Medicati on ID: [id number] B rand Name: clonazep am Send Method: [...] mg tablet 05/19 completed Medicati on ID: [id number] B rand Name: simvasta tin Send Method: [...] mg tablet 05/19 completed Medicati on ID: [id number] B rand Name: tramadol Send Method: E-Prescr [...] mg tablet 05/19 completed Medicati on ID: [id number] B rand Name: baclofen Send Method: E-Prescr ibed Sub s Allowed: subs OK Speci al Instruct ion: TOME TIERA TABLETA VIA ORAL ROSALVA VECES AL JADYN LAMINE SEA NECESARI O FOR MUSCLE SPASM/PA IN Medic ationGen ericName : baclofen Not Available Not Available Not Available Mi-Acid Gas Relief (simethic one) 80 mg chewable tablet 05/19 completed Medicati on ID: [id number] B rand Name: Mi-Acid Gas Relief(s imethico n) Send Method: E-Prescr ibed Sub s Allowed: subs OK Speci al Instruct ion: MASTIQUE Y TRAGUE TIERA TABLETA VIA ORAL CUATRO VECES AL JADYN DESPUES DE LAS COMIDAS Medicati onGeneri cName: Mi-Acid Gas Relief(s imethico n) Not Available Not Available Not Available famotidin e 20 mg tablet 05/19 completed Medicati on ID: [id number] B rand Name: famotidi ne Send Method: [...] mg capsule 01/23 completed Medicati on ID: [id number] B rand Name: cephalex in Send Method: E-Prescr ibed Sub s Allowed: subs OK Speci al Instruct ion: TAKE 1 CAPSULE EVERY 12 HOURS BY MOUTH Me dication GenericN candice: cephalex in Not Available Not Available Not Available pantopraz ole 40 mg tablet,de layed release 05/19 completed Medicati on ID: [id number] B rand Name: pantopra zole Sen d [...] mg capsule 05/19 completed Medicati on ID: [id number] B rand Name: docusate sodium S end [...] elayed release 01/23 completed Medicati on ID: [id number] B rand Name: omeprazo le Send Method: [...] unit) capsule 2020 active Medicati on ID: [id number] B rand Name: ergocalc iferol (vitamin D2) [...] TIERA TABLETA VIA ORAL CADA JADYN EN [facility] active Not Available Not Available No t Available naproxen 500 mg tablet 2020 active Medicati on ID: [id number] B rand Name: naproxen Send Method: E-Prescr ibed Sub s Allowed: subs OK Speci al Instruct ion: TAKE ONE TABLET BY MOUTH TWICE A DAY WITH FOOD ONLY NEEDED M edicatio nGeneric Name: naproxen Not Available Not Available Not Available oxycodone 5 mg tablet 01/23 completed Medicati on ID: [id number] B rand Name: oxycodon e Send Method: [...] mg tablet 2020 active Medicati on ID: [id number] B rand Name: Pain Relief Extra Strength [...] Available Not Available No t Available FreeStyle [place] Lite kit USE DIRECTED TO TEST BLOOD SUGAR TWICE DAILY active Not Available Not Available No t Available diclofena c 1 % topical gel 01/23 completed Medicati on ID: [id number] B rand Name: diclofen ac sodium S [...] Updated DateTime 05/19/2025 152.4 cm 31.2 kg/m2 45947.78 g EDIE OSORIO [place] - [facility] 05/19/2025 15:41:37 Social History None recorded. Functional Status None recorded. Mental Status None recorded. Family History Nothing Reported. Medical History No medical history recorded. Gynecological HistoryNo gynecological history recorded. Obstetrics History GPAL:G 0 P 0 0 0 0 Past Encounters Encounter ID Performer Location Encounter Start Date Encounter Closed Date Diagnosis/Indication Diagnosis SNOMED-CT Code Diagnosis ICD10 Code Diagnosis IMO Codes Diagnosis Note [id number] SILVIO CONNOLLY MD [facility] [address] [address] 05/19/2025 14:57:47 05/19/2025 15:59:01 Mucocele of maxillary sinus [id number] J34.1 5371416 Health Concerns Section Related Observation LastModified by Organization Detai ls LastModified Time None Recorded Concern Status LastModified by Organization Details LastModified Time None Recorded Advance Directives Directive None Recorded Payers Insurance Date Sequence Insurance Name Policy Number Policy Saucedo Covered Member ID Saucedo Member ID Guarantor Name 05/19/2025 1 [place] [facility] Tri Bownes [id number] Tri Bowens Notes Date Note Type Note Provider Name and Address Organization Details Recorded Time 05/19/2025 text/html 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 The patient reports no current symptoms such as nasal bleeding or issues with her sense of smell. She previously received antibiotics for a suspected infection, which resulted in improvement. She denies any history of nasal surgery. SILVIO CONNOLLY MD [address] [place] [address], [place], [address], [facility] - [facility] 05/19/2025 15:59:49 OBGyn Episode No OBEpisode recorded.
--- OUTSIDE RECORDS SUMMARY | 2025-07-14 13:47 | XMS_ITS | Clinical Summary ---
Author Organization [employer] Address [address] [place] [address] 7 [place] [address] Care Team Providers Care Alley Tender Name Role Phone LizFarhana key Primary Care Provider + [phone] Allergies Active Allergy Reactions Criticality Noted Date [...] 5 Active Blood Glucose Monitoring Suppl (FreeStyle [place] Lite) w/Device kit Use to test blood [...] completed the intake process with [facility] at [facility] after today's session. 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 -DEXA with osteopenia JUL 2023 -STI/HIV screen [...] nightly -s/p optho eval Apr 2023 at [facility] -foot exam next visit* Allergic rhinitis [...] -f/u with neurology as scheduled -advised contact [facility] if no improvement Irritable bowel syndrome [...] Encounters Date Type Department Care Team Description 07/06/2025 Orders Only [facility] MEDICINE [address] [place] [address] Farhana Horn DO Lung nodule (Primary Dx) 06/23/2025 Telephone [facility] MEDICINE [address] [place] [address] Farhana Horn DO Referral 06/14/2025 Telephone [facility] & PEDS [address] [place] [address] Farhana Horn DO Care Coordination (ICP Care Plan) 05/24/[address] [facility] [address] [place] [address] Farhana Horn DO 05/18/[address] [address] Farhana Horn DO Durable Medical Equipment (DME RX for 24 Hour Pulse Oximetry([facility] 05/10/[address] [address] Farhana Horn DO 04/27/2025 11:30 AM EDT Office Visit [address] [address] Farhana Horn DO Type 2 diabetes mellitus without complication, without long-term current use of insulin (CMS/HCC) (Primary Dx); Essential hypertension; Other hyperlipidemia; Major depression, recurrent, chronic (CMS/HCC); Chronic migraine; Chronic gastroesophageal reflux disease; Allergic rhinitis, unspecified seasonality, unspecified trigger; Obstructive sleep apnea; Nephrolithiasis; Adrenal nodule (CMS/HCC); Chronic sinusitis, unspecified location; Abnormal brain MRI; Hypoxia; Paresthesia and pain of both upper extremities; Lung nodule; Healthcare maintenance; Dietary counseling; Exercise counseling 04/27/2025 Travel 04/26/2025 Telephone [facility] MEDICINE [address] [place] [phone] Farhana Horn DO Chart Prep 04/21/[address] [phone] Farhana Horn DO MRI 04/20/[address] [address] Farhana Horn DO Nurse Triage from Last 3 Months Immunizations Immunization Administration [...] complication, without long-term current use of insulin ([facility]/HCC) Essential hypertension Other hyperlipidemia Major depression, [...] Vitamin D 25-OH Total 27.9(L) >30 ng/mL [facility] Comment: Health Based Reference Values*< 20 ng/mL Sovlfvdhr57-54 ng/mL Insufficient> 30 ng/mL Sufficient*Smooth VEGA. N [...] DO LAB BLOOD ORDERABLES Final R esult [facility] [address] [place] [phone] * Lyme Disease Ab with Reflex to Blot (IgG, IgM) (04/27/2025 1:18 PM EDT) [facility] Lyme Antibody Screen <0.90 index [facility] Comment:Index Interpretation ----- < 0.90 Negative [...] when erythemamigrans is apparent.THIS TEST WAS PERFORMED AT:[facility] [place] [phone] WORKMAN MD Lyme Blot [facility] 04/27/2025 1:18 PM EDT 04/27/2025 4:17 PM EDT Farhana Horn DO LAB BLOOD ORDERABLES Final R esult Performing Organization Address [facility] Co de Phone Number [facility] [address] [place] [phone] * (ABNORMAL) Sed Rate by Modified Kain (04/27/2025 1:18 PM EDT) [facility] Erythrocyte Sedimentation Rate 23(H) 0 - 20 MM/HR [facility] Comment:Patients with polycy themia and many hemoglobin abnormalitiesmay have depressed sed rates whereas patients with anemiamay have elevated sed rates. Blood Venous blood specimen / Unknown 04/27/2025 1:18 PM EDT 04/27/2025 4:17 PM EDT us Farhana Horn DO LAB BLOOD ORDERABLES Final R esult [facility] [address] [place] [phone] * (ABNORMAL) CBC (04/27/2025 1:18 PM EDT) White Blood Count 8.1 4.8 - 10.8 X10*3/uL [facility] Red Blood Count 4.60 4.20 - 5.50 X10*6/uL [facility] Hemoglobin 12.6 12.0 - 16.0 g/dl [facility] Hematocrit 39.0 37.0 - 47.0 % [facility] Mean Corpuscular Volume 84.8 80.0 - 98.0 fL [facility] Mean Corpuscular Hemoglobin 27.4 27.0 - 33.0 pg [facility] Mean Corpuscular HGB Conc 32.3 31.0 - 35.0 g/dl [facility] Red Cell Distribution Width 13.0 11.0 - 16.0 % [facility] Platelet Count 329 160 - 400 X10*3/uL [facility] Mean Platelet Volume 8.9(L) 9.4 - 12.3 fL [facility] NRBC Pct Auto 0.0 0.0 - 0.2 /100WBC [facility] NRBC Abs Auto 0.000 0.0 - 0.012 X10*3/uL [facility] Blood Venous blood specimen / Unknown 04/27/2025 1:18 PM EDT 04/27/2025 4:17 PM EDT us Farhana Horn DO LAB BLOOD ORDERABLES Final R esult Performing Organization Address City/[facility]/ZIP Co de Phone Number [facility] [address] [place] [phone] * Rheumatoid Factor (04/27/2025 1:18 PM EDT) Rheumatoid Factor <13.0 <15.0 IU/mL [facility] Blood Venous blood specimen / Unknown 04/27/2025 1:18 PM EDT 04/27/2025 4:17 PM EDT Farhana Horn DO LAB BLOOD ORDERABLES Final R esult Performing Organization Address City/[facility]/ZIP Co de Phone Number [facility] [address] [place] [phone] * C-reactive Protein (04/27/2025 1:18 PM EDT) Pathologist [facility] C Reactive Protein 0.26 < or = 0.50 mg/dL [facility] Blood Venous blood specimen / Unknown 04/27/2025 1:18 PM EDT 04/27/2025 4:17 PM EDT Farhana Horn DO LAB BLOOD ORDERABLES Final R esult Performing Organization Address [facility] Co de Phone Number [facility] [address] [place] [phone] * JERMAINE Screen,IFA, with Reflex to Titer and Pattern (04/27/2025 1:18 PM EDT) Anti Nuclear Antibody Screen NEGATIVE NEGATIVE [facility] Comment:JERMAINE IFA is a first l [...] clinicallysuspected inflammatory myopathies.AC-0: NegativeInternational Consensus on JERMAINE Patterns(https://doi.org/10.1515/kugz-8277-9204)For additional information, please refer tohttp://education.[employer].com/faq/SQF046(This link is being provided for informational/educational purposes only.)THIS TEST WAS PERFORMED AT:[facility] [place] [phone] WORKMAN MD JERMAINE Titer TNP [facility] JERMAINE Pattern TNP [facility] JERMAINE Titer 2 TNP [facility] JERMAINE Pattern 2 TNP [facility] JERMAINE TITER 3 TNP [facility]INE PATTERN 3 [facility] Blood Venous blood specimen / Unknown 04/27/2025 1:18 PM EDT 04/27/2025 4:17 PM EDT Farhana Horn LAB BLOOD ORDERABLES Final R esult Performing Organization Address [facility]/ZIP Co de Phone Number [facility] [address] [place] [phone] * TSH (04/27/2025 1:18 PM EDT) Thyroid Stimulating Hormone 1.49 0.32 - 4.0 uIU/mL [facility] Comment:TSH 3rd Generation ( [facility]) Blood Venous blood specimen / Unknown 04/27/2025 1:18 PM EDT 04/27/2025 4:17 PM EDT Farhana Horn LAB BLOOD ORDERABLES Final R esult Performing Organization Address City/[facility]/ZIP Co de Phone Number [facility] [address] [place] [phone] * T4, Free (04/27/2025 1:18 PM EDT) Free T4 (Free Thyroxine) 1.01 0.71 - 1.85 ng/dL [facility] Blood Venous blood specimen / Unknown 04/27/2025 1:18 PM EDT 04/27/2025 4:17 PM EDT Farhana Horn DO LAB BLOOD ORDERABLES Final R esult Performing Organization Address [facility] Co de Phone Number [facility] [address] [place] [phone] * (ABNORMAL) Hemoglobin A1c (04/27/2025 1:18 PM EDT) Hemoglobin A1c 7.0(H) <6.0 % [facility] Comment:Hemoglobin A1C Refer ence Range Adults: 4.8 - 6.0 % Non diabetic: < 6.0 % Goal: < 7.0 %Additional Action Suggested: > 8.0 %Note: Hemoglobin A1c results are invalid for patients with abnormal amounts of HbF. Blood transfusions may impact the HbA1c concentration in the patient sample. Estimated Average Glucose 154 mg/dL [facility] Comment:eAG = Estimated ave rage glucose which is %A1C expressed asaverage glucose, using the formula of the [id number] Glucose study (ADAG), Diabetes Care, Vol.31,#8,Apr. 2007 Blood Venous blood specimen / Unknown 04/27/2025 1:18 PM EDT 04/27/2025 4:17 PM EDT Farhana Kory DO LAB BLOOD ORDERABLES Final R esult Performing Organization Address [facility] Co de Phone Number [facility] [address] [place] [phone] * (ABNORMAL) Hepatic Function Panel (04/27/2025 1:18 PM EDT) Bilirubin, Total 0.2 0.0 - 1.0 mg/dL [facility] Bilirubin, Direct <0.2 0.0 - 0.5 mg/dL [facility] Aspartate Amino Transferase 35(H) 5 - 31 U/L [facility] Alanine Aminotransferase 44(H) 0 - 31 U/L [facility] Total Protein 7.3 6.5 - 8.0 g/dL [facility] Albumin Level 4.3 3.5 - 5.0 g/dL [facility] Alkaline Phosphatase 130(H) 39 - 117 U/L [facility] Blood Venous blood specimen / Unknown 04/27/2025 1:18 PM EDT 04/27/2025 4:17 PM EDT Farhana Horn DO LAB BLOOD ORDERABLES Final R esult Performing Organization Address City/[facility] Co de Phone Number [facility] [address] [place] [phone] * (ABNORMAL) Lipid Panel, Standard (04/27/2025 1:18 PM EDT) Triglycerides 134 <150 mg/dL [facility] Comment:Desirable Triglyceri de: less than 150 mg/dLBorderline High Triglyceride 150-199 mg/dLHigh Triglyceride: 200-499 mg/dLVery High Triglyceride: greater than or equal to 5OO mg/dL Cholesterol 137 <200 mg/dL [facility] Comment:Desirable Cholestero l: less than 200 mg/dLBorderline High Cholesterol: 200-239 mg/dLHigh Cholesterol: greater than 239 mg/dL LDL Cholesterol Calculated 76 <100 mg/dL [facility] Comment:Desirable LDL: less than 100 mg/dLNear Optimal/Above Optimal LDL: 110- 129 mg/dLBorderline High LDL: 130-159 mg/dLHigh LDL: 160-189 mg/dLVery High LDL: greater than or equal to 190 mg/dL HDL Cholesterol 35(L) >40 mg/dL [facility] Comment:Desirable HDL: great er than 40 mg/dL Note: This HDL assay may give artificially low results in patients with liver disease. Blood Venous blood specimen / Unknown 04/27/2025 1:18 PM EDT 04/27/2025 4:17 PM EDT us Farhana Horn DO LAB BLOOD ORDERABLES Final R esult Performing Organization Address City/[facility]/ZIP Co de Phone Number [facility] [address] [place] [phone] * (ABNORMAL) Basic Metabolic Panel (04/27/2025 1:18 PM EDT) Sodium 140 135 - 145 mmol/L [facility] Potassium 3.9 3.3 - 5.1 mmol/L [facility] Chloride 106 96 - 108 mmol/L [facility] Carbon Dioxide 26 22 - 29 mmol/L [facility] Anion Gap 12 12 - 20 [facility] Urea Nitrogen (BUN) 13 9 - 16 mg/dL [facility] Creatinine, Serum 0.75 0.5 - 1.4 mg/dL [facility] Estimated Glomerular Filt Rate >60 [facility] Comment:Chronic Kidney Disea se: Estimated GFR < 60 mL/min/1.20z3Ojugnx Kidney Disease: Estimated GFR < 15 mL/min/1.73m2 Glucose 185(H) 60 - 115 mg/dL [facility] Calcium 9.2 8.4 - 10.2 mg/dL [facility] Blood Venous blood specimen / Unknown 04/27/2025 1:18 PM EDT 04/27/2025 4:17 PM EDT Farhana Horn DO LAB BLOOD ORDERABLES Final R esult [facility] [address] [place] [phone] * (ABNORMAL) POCT HGB A1C (04/27/2025 11:29 AM EDT) Hemoglobin A1C 7.0(A) 4.0 - 5.7 % QC Media Lot # [id number] Lot# Expiration Date ,344 Blood 04/27/2025 11:2 9 AM EDT us Farhana Horn DO POINT OF CARE TEST ENTER/PAUL T ORDERABLES Final Result * POCT Glucose (04/27/2025 11:29 AM EDT) Glucose Blood, POC 166 60 - 200 mg/dL QC Media Lot # [id number] Lot# Expiration Date [id number] Blood Capillary blood specimen / Unknown 04/27/2025 11:29 AM EDT Farhana Horn DO POINT OF CARE TEST ENTER/PAUL T ORDERABLES Final Result * Fecal Globin By Immunochemistry (02/04/2025 12:00 AM EDT) Pathologist [facility] Fecal Globin By Immunochemistry SEE NOTE [facility] [place] [facility] Comment: FECAL GLOBIN BY IMMUNOCHEMISTRY Micro Number: [id number] Test Status: Final Specimen Source: Insure (tm) [...] FLUIDS AND STOOLS O RDERABLES Final Result [facility] [address], [place] [address] [facility] [place] [facility] [address] [place] [phone] * Albumin, Random Urine W/Creatinine (01/29/2025 11:23 AM EDT) Pathologist [facility] Creatinine, Urine 174.41 mg/dL [facility] Microalbumin Urine 12.0 mg/L [facility] Microalbum Creatinine Ratio Ur 6.8 <30 ug/mg cr [facility] Comment:Albumin/Creatinine R atio Reference Ranges: Normal: < 30 ug/mg creatinine Microalbuminuria: 30 - 300 ug/mg creatinineClinical Albuminuria: > 300 ug/mg creatinine Urine (Urine, Random) 01/29/2025 11:23 AM EDT 01/29/2025 1:03 PM EDT Farhana Horn LAB URINE ORDERABLES Final R esult [facility] [address] [place] [phone] * Hepatitis C Antibody with Reflex to HCV, RNA, Quantitative, Real-Time PCR (01/29/2025 11:23 AM EDT) Hepatitis C Antibody Nonreactive Nonreactive [facility] Comment:Antibodies to HCV no t detected; does not exclude early acuteHCV infection. Blood Venous blood specimen / Unknown 01/29/2025 11:23 AM EDT 01/29/2025 1:24 PM EDT Farhana Horn LAB BLOOD ORDERABLES Final R esult [facility] [address] [place] [phone] * HIV-1/2 Antigen and Antibodies, Fourth Generation, with Reflexes (01/29/2025 11:23 AM EDT) HIV AB/AG Nonreactive Nonreactive [facility] Comment:HIV-1 p24 Ag and/or HIV-1/HIV-2 Ab not detected.A test result that is nonreactive does not exclude thepossibility of exposure to or infection with HIV-1 and/orHIV-2. Nonreactive results in this assay for individualswith prior exposure to HIV-1 and/or HIV-2 may be due toantigen and antibody levels that are below the limit ofdetection of this assay.The [employer] HIV Ag/Ab Combo assay result andsupplemental assay results should be interpreted inconjunction with the patient's clinical presentation,history and other laboratory results. If the results areinconsistent with clinical evidence, additional testing issuggested to confirm the result. Blood Venous blood specimen / Unknown 01/29/2025 11:23 AM EDT 01/29/2025 1:24 PM EDT us Farhana Horn DO LAB BLOOD ORDERABLES Final R esult Performing Organization Address [facility]/ZIP Co de Phone Number [facility] [address] [place] [phone] * Colposcopy (12/02/2024 12:00 AM EDT) Historical Provider MD IN CLINIC/BEDSIDE ORDERAB LES Final Result Performing Organization Address [facility] Co de Phone Number [facility] [address] [place] [phone] * (ABNORMAL) HPV DNA, Low/High Risk (10/27/2024 9:07 AM EST) HPV High Risk Positive(A) Negative [facility] HPV Genotype 16 Negative Negative [facility] HPV Genotype 18 Negative Negative [facility] Comment:HPV testing performe d at [facility] (CLIA#[id number]), [address] [place] [address].Testing for HPV was performed using the Milana [...] ORDERAB LES Final Result Performing Organization Address [facility] Co de Phone Number [facility] [address] [place] [phone] * Pap Smear (10/27/2024 9:07 AM EST) 10/27/2024 9:07 AM EST 10/27/2024 2:15 PM EST Narrative [facility] - 11/02/2024 3:56 PM EST ----- ------- Name: Tri Bowens Age/Sex: 53/F : 1970 Unit#: [id number] Attend Dr: Fabio Morin MD Re10/27/24 Status: DEP REF Location: HO.LNP Disch: ----- ------- SPEC : [id number] RECD: 10/27/24 STATUS: STEPHANIE GARLAND NUM: [id number] ANITA: 10/27/24 [facility] DR: Fabio Morin MD ENTERED: 10/27/24 SP TYPE: Pap Smr OTHR DR: Farhana Horn DO ORDERED: Pap Smear Interpretation Satisfactory for evaluation. Negative for intraepithelial lesion or malignancy. HPV High Risk: Positive HPV Genotyping 16: Negative HPV Genotyping 18: Negative Clinical Information LMP:[place]OWN Previous PAP test:2019 Other surgery: Other history: Copies To: Farhana Horn DO [facility] [address] [place] [address] Fabio Morin MD [facility] [address] [place] [address] ----- ------- Signed (signature on file) CORI Ortez ([facility]) 11/02/24 1556 ----- ------- END OF REPORT us Generic External Data Provider LAB CYTOLOGY BROOKE GREY Final Result [facility] [address] [place] [phone] * BI Mammogram Screening Tomosynthesis Bilateral (09/23/2024 10:30 AM EST) Anatomical Region Laterality Modality Breast Bilateral Mammography 09/23/2024 10:3 0 AM EST Narrative 10/04/2024 9:14 AM EST [address] [place] [address] Mammography Report Signed Patient: Tri Bowens MR#: [id number] 63 : 1970 Acct:[id number] Age/Sex: 53 / F ADM Date: 09/23/24 Loc: [facility] Attending Dr: Farhana Horn DO Ordering Physician: Farhana Horn DO Results: 1N egative Date of Service: 09/23/24 Follow Up: 1 Year From Orig inal Mammogram Procedure(s): MM tomosynthesis screening BI Accession Number(s): [id number] cc: Farhana Horn DO EXAMINATION: MM SCREENING [...] 10/04/24 0911 DD/ 1030 TD/TT: 09/23/24 1041 Mining Engineer: Procedure Note Donotuseinterpreter, Image - 10/04/2024 [facility] [address] [place], [place] [address] Mammography Report Signed Patient: Tri BowensMR#: [id number] 63 : 1970Acct:[id number] Age/Sex: 53 / FADM Date: 09/23/24 Loc: HO.MAMMO Attending Dr: Farhana Horn DO Ordering Physician: Farhana Horn DOResults: 1N egative Date of Service: 09/23/24Follow Up: 1 Year From Orig inal Mammogram Procedure(s): MM tomosynthesis screening BI Accession Number(s): [id number] cc: Farhana Horn DO EXAMINATION: MM SCREENING [...] 10/04/24 0911 DD/ 1030 TD/TT: 09/23/24 1041 Mining Engineer: Farhana Horn DO IMG BI PROCEDURES Edited Res ult - Final * Hm Colonoscopy (01/27/2019 8:43 AM EDT) Historical Provider HEALTH MAINTENANCE Final Result from Last 3 Months or Most Recently Relevant to Health Maintenance [facility] Care Teams Alley Tender Relationship Specialty Start Date End Date Farhana Horn DO [address] [place] [phone] PCP - General Family Medicine 09/09/18 Tyshawn Yap Bereavement CounselorSpooler Operator Automatic 06/14/25
--- OUTSIDE RECORDS SUMMARY | 2025-07-14 13:47 | XMS_ITS | Encounter Summary ---
Author Organization [employer] Address [address] [place] [address] [address] [place] [address] Care Team Providers Care Personnel Recruiter Name Role Phone Farhana Horn DO Primary Care Provider + [phone] Encounter Details Date Type Department Care Team ([facility] st Contact Info) Description 08/08/2023 Telephone [facility] MEDICINE [address] [place] [address] Farhana Horn DO [address] [place] [address] Social History Tobacco Use Types Packs/Day Years [...] t he electric, gas, oil or water [employer] threatened to shut off services in your [...] documented as of this encounter Care Teams Personnel Recruiter Relationship Specialty Start Date End Date Farhana Horn DO [address] [place] [address] PCP - General Family Medicine 09/09/18 Tyshawn Yap Store DetectiveEsters And Emulsifiers Supervisor 06/14/25 documented as of this encounter
--- OUTSIDE RECORDS SUMMARY | 2025-07-14 13:47 | XMS_ITS | Encounter Summary ---
Author Organization [employer] Address [address] [place] [address] 7 [place] [address] Care Team Providers Care Emergency Room Technician Name Role Phone Farhana Horn DO Primary Care Provider + [phone] Reason for Visit * Reason Comments Med Refill Encounter Details Date Type Department Care Team ([facility] st Contact Info) Description 03/27/2025 Refill [facility] MEDICINE [address] [place] [address] Farhana Horn DO [address] [place] [address] Social History Tobacco Use Types Packs/Day Years [...] documented as of this encounter Care Teams Emergency Room Technician Relationship Specialty Start Date End Date Farhana Horn DO [address] [place] [address] PCP - General Family Medicine 09/09/18 Tyshawn Yap Policy ManagerCollege And Career Counselor 06/14/25 documented as of this encounter
--- OUTSIDE RECORDS SUMMARY | 2025-07-14 13:47 | XMS_ITS | Encounter Summary ---
Author Organization [employer] Address [address] [place] [address] [address] [place] [address] Care Team Providers Care Vice President Of Brand Management Name Role Phone KoryFarhana Primary Care Provider + [phone] Encounter Details Date Type Department Care Team ([facility] st Contact Info) Description 12/20/2023 Orders Only [facility] MED[facility]INE [address] [place] [address] ProviderPantera MD Social History Tobacco Use Types [...] the past 12 months, has t he Seg[employer], gas, oil or water [employer] threatened to shut off services in your [...] documented as of this encounter Care Teams Vice President Of Brand Management Relationship Specialty Start Date End Date Farhana Horn DO [address] [place] [address] PCP - General Family Medicine 09/09/18 Tyshawn Yap Acoustic Intelligence SpecialistFilm Historian 06/14/25 documented as of this encounter
--- OUTSIDE RECORDS SUMMARY | 2025-07-14 13:47 | XMS_ITS | Clinical Summary ---
Author Organization [facility] Address [address] [facility] [address] [place] [phone] Phone Care Team Providers Care Draw Frame Tender Name Role Phone Farhana Horn Primary Care Provider [phone] Allergies Active Allergy Reactions Criticality Noted Date [...] file Medical Devices Not on file [place] [address] NON NSPG PCP [facility] [address] NON NSPG PCP [facility] [employer] [facility] [place] NON NSPG PCP S[facility] NON NSPG PCP S[facility] NON NSPG PCP S[facility] [employer] CONNECTORCARE [place] NON NSPG PCP S[facility] [employer] CONNECTORCARE [place] NON NSPG PCP S[facility] CONNECTORCARE [place] NON NSPG PCP S[facility] CONNECTORCARE [place] NON NSPG PCP [facility] [employer] CONNE[facility] Care Teams Draw Frame Tender Relationship Specialty Start Date End Date Farhana Horn DO [address] [place] [phone] PCP - General Family Medicine 01/15/18 Additional Source Comments The information contained in this document represents components of the legal health record. It is not the complete legal health record.[facility]
--- OUTSIDE RECORDS SUMMARY | 2025-07-14 13:47 | XMS_ITS | Encounter Summary ---
Author Organization [employer] Address [address] [place] [address] 7 [place] [address] Care Team Providers Care Aircraft Shipping Checker Name Role Phone Farhana Horn DO Primary Care Provider + [phone] Reason for Visit * Reason Comments Med Refill Encounter Details Date Type Department Care Team (Late st Contact Info) Description 12/13/2022 Refill [facility] [address] [place], [place] [phone] [facility] [address] [place] [address] Hyperlipidemia, unspecified hyperlipidemia type Social History Tobacco [...] type documented in this encounter Care Teams Aircraft Shipping Checker Relationship Specialty Start Date End Date Farhana Horn DO [address] [place] [place], [place] [phone] PCP - General Family Medicine 09/09/18 Tyshawn Yap Senior Research FellowConductor Sleeping Car 06/14/25 documented as of this encounter
--- OUTSIDE RECORDS SUMMARY | 2025-07-14 13:48 | XMS_ITS | Encounter Summary ---
Author Organization [employer] Address [address] [place] [address] 7 [place] [address] Care Team Providers Care Pasting Machine Offbearer Name Role Phone Farhana Horn DO Primary Care Provider + [phone] Encounter Details Date Type Department Care Team (Late st Contact Info) Description 09/12/2022 Orders Only [facility] MEDICINE 230 [place], [place] [phone] Farhana Horn DO 230 [place] [address] Social History Tobacco Use Types Packs/Day Years [...] on filedocumented in this encounter Care Teams Pasting Machine Offbearer Relationship Specialty Start Date End Date Farhana Horn DO [address] [place], [place] [phone] PCP - General Family Medicine 09/09/18 Tyshawn Yap Tungsten TenderQuarry Manager 06/14/25 documented as of this encounter
--- OUTSIDE RECORDS SUMMARY | 2025-07-14 13:48 | XMS_ITS | Encounter Summary ---
Author Organization [employer] Address [address] [place] [address] 7t [place] [address] Care Team Providers Care Assistant Dean Name Role Phone ZeeFarhana snyder Primary Care Provider + [phone] Encounter Details Date Type Department Care Team ([facility] st Contact Info) Description 12/07/2024 Orders Only [facility] & PEDS [address] [place] [address] Carmelita Kruse Social History Tobacco Use Types [...] t he electric, gas, oil or water [employer] threatened to shut off services in your [...] ORDERAB LES Final Result Performing Organization Address [facility]/State/[facility] Co de Phone Number [facility] [address] [place] [phone] documented in this encounter Visit Diagnoses Not on filedocumented in this encounter Additional Health Concerns Assessment Noted Time PHQ-9 Depression Total Score: 13 025 10:22 AM EDT documented as of this encounter Care Teams Assistant Dean Relationship Specialty Start Date End Date Farhana Horn DO [address] [place] [address] PCP - General Family Medicine 09/09/18 Tyshawn Ypa Per Diem Physical Therapist AssistantAtmospheric Sciences Professor 06/14/25 documented as of this encounter
--- OUTSIDE RECORDS SUMMARY | 2025-07-14 13:48 | XMS_ITS | Encounter Summary ---
Author Organization [employer] Address [address] [place] [address] 7 [place] [address] Care Team Providers Care Sheepskin Pickler Name Role Phone Farhana Horn DO Primary Care Provider + [phone] Encounter Details Date Type Department Care Team (Latest Contact Info) Description 10/16/2019 Abstract [facility] CONVERSIONS Dental, Provider, DDS Social [...] on filedocumented in this encounter Care Teams Sheepskin Pickler Relationship Specialty Start Date End Date Farhana Horn DO 230 [place] [address] PCP - General Family Medicine 09/09/18 Tyshawn Yap Marketing Director Assisted LivingPutty Glazer 06/14/25 documented as of this encounter
--- OUTSIDE RECORDS SUMMARY | 2025-07-14 13:48 | XMS_ITS | Encounter Summary ---
Author Organization [employer] Address [address] [place] [address] 7 [place] [address] Care Team Providers Care Inspector Fuel Hose Name Role Phone Farhana Horn DO Primary Care Provider + [phone] Reason for Visit * Reason Comments Med Refill Encounter Details Date Type Department Care Team ([facility] st Contact Info) Description 02/11/2025 Refill [facility] MEDICINE 230 [place] [address] Farhana Horn DO [address] [place] [address] Social History Tobacco Use Types Packs/Day Years [...] documented as of this encounter Care Teams Inspector Fuel Hose Relationship Specialty Start Date End Date Farhana Horn DO 230 [place] [address] PCP - General Family Medicine 09/09/18 Tyshawn Yap Revenue Accounting ManagerLeather Heel Breaster 06/14/25 documented as of this encounter
== END 2025-07-14 11:59 | disposition home or self-care (01) ==
LOC: HO.HGI 11:19
PROVIDERS: PCP Family Medicine; Visit Provider Nurse Practitioner Family
DX: K21.9 Gastro-esophageal reflux disease without esophagitis (principal); K58.1 Irritable bowel syndrome with constipation; K57.90 Diverticulosis of intestine, part unspecified, without perforation or abscess without bleeding; R14.0 Abdominal distension (gaseous); K59.01 Slow transit constipation
CPT/HCPCS: 99214

== ENCOUNTER → 2025-07-14 11:19 | Outpatient (BNVA) | payer MEDICAID, SELFPAY | PROVIDERS: PCP Family Medicine; Visit Provider Nurse Practitioner Family | DX: K21.9 Gastro-esophageal reflux disease without esophagitis (principal); R11.0 Nausea; K59.81 Ogilvie syndrome; K58.1 Irritable bowel syndrome with constipation; K59.01 Slow transit constipation; Z79.899 Other long term (current) drug therapy | CPT/HCPCS: 99212 ==

== ENCOUNTER 2025-08-24 10:58 | Outpatient (REF) | payer MEDICAID, SELFPAY ==
--- NOTE | 2025-08-24 11:09 | PFT_ITS ---
Spirometry [] Lung Volumes [] Diffusion Capacity [] Methacholine Challenge [] Flow Volume Loops [] MVV [] MIP/MEP(Max inspiratory pressure/Max expiratory pressure) [] 6 Minute Walk Test [] ABG [] Interpretation [] MTDD
[2025-08-24 11:49] VITALS: PULSE 64
--- OUTSIDE RECORDS SUMMARY | 2025-08-24 14:24 | XMS_ITS | Encounter Summary ---
Author Organization [employer] Address [address] [place] [address] 7 [place] [address] Care Team Providers Care Drapery Rod Assembler Name Role Phone Farhana Horn DO Primary Care Provider + [phone] Reason for Visit * Reason Comments Med Refill Encounter Details Date Type Department Care Team (Late Contact Info) Description 12/13/[address] [facility] 505 [place] [address] [facility] 230 [place] [address] Hyperlipidemia, unspecified hyperlipidemia type Social History Tobacco [...] Care Team (Late st Contact Info) Description 11/22/2025 10:30 AM EDT Office Visit [facility] [address] [place] [address] Steven, Danette, OD [address] [place] [address] documented as of this encounter Visit Diagnoses Diagnosis Hyperlipidemia, unspecified hyperlipidemia type documented in this encounter Care Teams Drapery Rod Assembler Relationship Specialty Start Date End Date Farhana Horn DO 230 [place] [address] PCP - General Family Medicine 09/09/18 Tyshawn Yap Texturing Machine FixerCorporate Aircraft Mechanic 06/14/25 documented as of this encounter
--- OUTSIDE RECORDS SUMMARY | 2025-08-24 14:24 | XMS_ITS | Encounter Summary ---
Author Organization [employer] Address [address] [place] [address] 7t [place] [address] Care Team Providers Care Felt Hat Mellowing Machine Operator Name Role Phone KoryFarhana Primary Care Provider + [phone] Encounter Details Date Type Department Care Team ([facility] st Contact Info) Description 12/20/2023 Orders Only [facility] MEDICINE 230 [place] [address] ProviderPantera MD Social History Tobacco Use Types [...] the past 12 months, has t he Adv[employer], gas, oil or water [employer] threatened to shut off services in your [...] Description 11/22/2025 10:30 AM EDT Office Visit [facility] [address] [place], [place] [phone] Danette Harris, OD 230 [place] [address] documented as of this encounter Procedures Procedure [...] documented as of this encounter Care Teams Felt Hat Mellowing Machine Operator Relationship Specialty Start Date End Date Farhana Horn DO 230 [place] [address] PCP - General Family Medicine 09/09/18 Tyshawn Yap Spice MillerDriver Material Handler 06/14/25 documented as of this encounter
--- OUTSIDE RECORDS SUMMARY | 2025-08-24 14:24 | XMS_ITS | Encounter Summary ---
Author Organization [employer] Address [address] [place] [address] 7t [place] [address] Care Team Providers Care Tombstone Setter Name Role Phone Farhana Horn DO Primary Care Provider + [phone] Encounter Details Date Type Department Care Team ([facility] st Contact Info) Description 08/08/2023 Telephone [facility] MEDICINE 230 [place] [address] Farhana Horn DO 230 [place] [address] Social History Tobacco Use Types Packs/Day Years [...] t he electric, gas, oil or water [employer] threatened to shut off services in your [...] Description 11/22/2025 10:30 AM EDT Office Visit [facility] OPT[facility] [address] [place] [address] Steven, Danette, OD 230 [place] [address] documented as of this encounter Visit Diagnoses Not on filedocumented in this encounter Additional Health Concerns Assessment Noted Time PHQ-9 Depression Total Score: 24 023 11:05 AM EDT documented as of this encounter Care Teams Tombstone Setter Relationship Specialty Start Date End Date Farhana Horn DO 230 [place] [address] PCP - General Family Medicine 09/09/18 Tyshawn Yap Grocery DelivererProperty Custodian 06/14/25 documented as of this encounter
--- OUTSIDE RECORDS SUMMARY | 2025-08-24 14:24 | XMS_ITS | Clinical Summary ---
Author Organization [employer] Address [address] [place] [address] 7 [place] [address] Care Team Providers Care Account Resolution Specialist Name Role Phone LizFarhana key Primary Care Provider + [phone] Allergies Active Allergy Reactions Criticality Noted Date [...] 5 Active Blood Glucose Monitoring Suppl (FreeStyle [place] Lite) w/Device kit Use to test blood [...] completed the intake process with [facility] at [facility] after today's session. 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) 07/19/2025 Telephone [facility] MEDICINE [address] [place] [address] Farhana Horn DO Pulse oximetry results 07/18/[address] [address] Farhana Horn DO Results 07/06/2025 Orders Only [facility] MEDICINE [address] [place] [address] Farhana Horn, Lung nodule (Primary Dx) 06/23/2025 Telephone [facility] MEDICINE [address] [place] [address] Farhana Horn DO Referral 06/14/2025 Telephone [facility] MED & PEDS [address] [place], [place] [phone] Farhana Horn DO Care Coordination (ICP Care Plan) from Last 3 Months Immunizations Immunization Administration [...] 04/27/2025 11:17 AM EDT Plan of Treatment Upcoming Encounters Date Type Department Care Team (Late st Contact Info) Description 11/22/2025 10:30 AM EDT Office Visit [facility] OPTOMETRY [address] [place] [address] Danette Harris, OD [address] [place] [address] Health Maintenance Due Date Last Done Comments [...] Diabetes: Urine Protein Screening 01/29/2026 01/29/2025, 07/26/2023, 01/25/2021, Additional history exists Disability Screening 01/29/2026 01/29/2025 FIT 02/04/2026 02/04/2025, 02/04/2025 FOBT 02/04/2026 02/04/2025 Diabetes: Foot Exam [...] on patient's age to complete this topic Goals Goal Patient Goal Type Associated Problems Recent Progress Patient-Stated? Author Help patients manage their type 2 diabetes Care Plan Help patients manage their type 2 diabetes Taylor Pinon Weekly blood pressure task Care Plan Weekly blood pressure task Taylor Pinon Help patients manage their type 2 diabetes Care Plan Help patients manage their type 2 diabetes Taylor Pinon Patient has chronic kidney disease Care Plan Patient has chronic kidney disease Taylor Pinon Procedures Procedure Name Priority Date/Time Associated Diagnosis Comments LIPID PANEL, STANDARD Routine 04/27/2025 1:18 PM [...] Relevant to Health Maintenance Results * (ABNORMAL) Lipid Panel, Standard (04/27/2025 1:18 PM EDT) Triglycerides 134 <150 mg/dL [facility] Comment:Desirable Triglyceri de: less than 150 mg/dLBorderline High Triglyceride 150-199 mg/dLHigh Triglyceride: 200-499 mg/dLVery High Triglyceride: greater than or equal to 5OO mg/dL Cholesterol 137 <200 mg/dL [facility] Comment:Desirable Cholestero l: less than 200 mg/dLBorderline High Cholesterol: 200-239 mg/dLHigh Cholesterol: greater than 239 mg/dL LDL Cholesterol Calculated 76 <100 mg/dL [facility] Comment:Desirable LDL: less than 100 mg/dLNear Optimal/Above Optimal LDL: 110- 129 mg/dLBorderline High LDL: 130-159 mg/dLHigh LDL: 160-189 mg/dLVery High LDL: greater than or equal to 190 mg/dL HDL Cholesterol 35(L) >40 mg/dL [facility] Comment:Desirable HDL: great er than 40 mg/dL Note: This HDL assay may give artificially low results in patients with liver disease. Blood Venous blood specimen / Unknown 04/27/2025 1:18 PM EDT 04/27/2025 4:17 PM EDT Farhana Horn DO LAB BLOOD ORDERABLES Final R esult [facility] [address] [place] [address] [phone] * (ABNORMAL) POCT HGB A1C (04/27/2025 11:29 AM EDT) Hemoglobin A1C 7.0(A) 4.0 - 5.7 % QC Media Lot # [id number] Lot# Expiration Date Blood 04/27/2025 11:2 9 AM EDT Farhana Horn DO POINT OF CARE TEST ENTER/PAUL T ORDERABLES Final Result * Fecal Globin By Immunochemistry (02/04/2025 12:00 AM EDT) Fecal Globin By Immunochemistry SEE NOTE [employer] Comment: FECAL GLOBIN BY IMMUNOCHEMISTRY Micro Number: [id number] Test Status: Final Specimen Source: Insure (tm) [...] O RDERABLES Final Result Performing Organization Address City/[facility]/ZIP Co de Phone Number [facility] [address], [place] [address] [employer] [place] [employer] [address] [place] [address] * Albumin, Random Urine W/Creatinine (01/29/2025 11:23 AM EDT) Creatinine, Urine 174.41 mg/dL [facility] Microalbumin Urine 12.0 mg/L [facility] Microalbum Creatinine Ratio Ur 6.8 <30 ug/mg cr [facility] Comment:Albumin/Creatinine R atio Reference Ranges: Normal: < 30 ug/mg creatinine Microalbuminuria: 30 - 300 ug/mg creatinineClinical Albuminuria: > 300 ug/mg creatinine Urine (Urine, Random) 01/29/2025 11:23 AM EDT 01/29/2025 1:03 PM EDT Farhana Horn LAB URINE ORDERABLES Final R esult Performing Organization Address [facility]/ZIP Co de Phone Number [facility] [address] [place] [phone] * Hepatitis C Antibody with Reflex to HCV, RNA, Quantitative, Real-Time PCR (01/29/2025 11:23 AM EDT) Hepatitis C Antibody Nonreactive Nonreactive [facility] Comment:Antibodies to HCV no t detected; does not exclude early acuteHCV infection. Blood Venous blood specimen / Unknown 01/29/2025 11:23 AM EDT 01/29/2025 1:24 PM EDT Farhana Horn LAB BLOOD ORDERABLES Final R esult Performing Organization Address City/[facility]/ZIP Co de Phone Number [facility] [address] [place] [address] [phone] * HIV-1/2 Antigen and Antibodies, Fourth Generation, with Reflexes (01/29/2025 11:23 AM EDT) HIV AB/AG Nonreactive Nonreactive [facility] Comment:HIV-1 p24 Ag and/or HIV-1/HIV-2 Ab not detected.A test result that is nonreactive does not exclude thepossibility of exposure to or infection with HIV-1 and/orHIV-2. Nonreactive results in this assay for individualswith prior exposure to HIV-1 and/or HIV-2 may be due toantigen and antibody levels that are below the limit ofdetection of this assay.The [employer] HIV Ag/Ab Combo assay result andsupplemental assay results should be interpreted inconjunction with the patient's clinical presentation,history and other laboratory results. If the results areinconsistent with clinical evidence, additional testing issuggested to confirm the result. Blood Venous blood specimen / Unknown 01/29/2025 11:23 AM EDT 01/29/2025 1:24 PM EDT us Farhana Horn DO LAB BLOOD ORDERABLES Final R esult Performing Organization Address [facility]/ZIP Co de Phone Number [facility] [address] [place] [phone] * Colposcopy (12/02/2024 12:00 AM EDT) Historical Provider MD IN CLINIC/BEDSIDE ORDERAB LES Final Result Performing Organization Address [facility] Co de Phone Number [facility] [address] [place] [phone] * (ABNORMAL) HPV DNA, Low/High Risk (10/27/2024 9:07 AM EST) HPV High Risk Positive(A) Negative [facility] HPV Genotype 16 Negative Negative [facility] HPV Genotype 18 Negative Negative [facility] Comment:HPV testing performe d at [facility] (CLIA#[id number]), [address] [place] [address].Testing for HPV was performed using the Milana [...] Provider LAB BLOOD ORDERAB LES Final Result [facility] [address] [place] [phone] * Pap Smear (10/27/2024 9:07 AM EST) 10/27/2024 9:07 AM EST 10/27/2024 2:15 PM EST Narrative [facility] - 11/02/2024 3:56 PM EST ----- ------- Name: Tri Bowens Age/Sex: 53/F : 1970 Unit#: [id number] Attend Dr: Fabio Morin MD Re10/27/24 Status: DEP REF Location: HO.LNP Disch: ----- ------- SPEC : [id number] RECD: 10/27/24-1414 STATUS: STEPHANIE GARLAND NUM: [id number] ANITA: 10/27/24 [facility] DR: Fabio Morin MD ENTERED: 10/27/248 SP TYPE: Pap Smr OTHR DR: Farhana Horn DO ORDERED: Pap Smear Interpretation Satisfactory for evaluation. Negative for intraepithelial lesion or malignancy. HPV High Risk: Positive HPV Genotyping 16: Negative HPV Genotyping 18: Negative Clinical Information LMP:[place] Previous PAP test:2019 Other surgery: Other history: Copies To: Farhana Horn DO [facility] [address] [place], [place] [phone] Fabio Morin MD [facility] [address] [place], [place] [phone] ----- ------- Signed (signature on file) CORI Ortez (ASCP) 11/02/24 1556 ----- ------- END OF REPORT us Generic External Data Provider LAB CYTOLOGY BROOKE GREY Final Result [facility] [address] [place], [place] [phone] * BI Mammogram Screening Tomosynthesis Bilateral (09/23/2024 10:30 AM EST) Anatomical Region Laterality Modality Breast Bilateral Mammography 09/23/2024 10:3 0 AM EST Narrative 10/04/2024 9:14 AM EST [address] [place] [address] Mammography Report Signed Patient: Tri Bowens MR#: [id number] 63 : 1970 Acct:[id number] Age/Sex: 53 / F ADM Date: 09/23/24 Loc: HO.MAMMO Attending Dr: Farhana Horn DO Ordering Physician: Farhana Horn DO Results: 1N egative Date of Service: 09/23/24 Follow Up: 1 Year From Orig inal Mammogram Procedure(s): MM tomosynthesis screening BI Accession Number(s): [id number] cc: Farhana Horn DO EXAMINATION: MM SCREENING [...] 10/04/24 0911 DD/ 1030 TD/TT: 09/23/24 1041 Molding Sander: Procedure Note Donotuseinterpreter, Image - 10/04/[address] [place] [address] Mammography Report Signed Patient: Wang Bowens#: [id number] 63 : 1970Acct:[id number] Age/Sex: 53 / FADM Date: 09/23/24 Loc: HO.MAMMO Attending Dr: Farhana Horn DO Ordering Physician: Farhana Hornults: 1N egative Date of Service: 09/23/24Follow Up: 1 Year From Orig inal Mammogram Procedure(s): MM tomosynthesis screening BI Accession Number(s): [id number] cc: Farhana Horn DO EXAMINATION: MM SCREENING [...] 10/04/24 0911 DD/ 1030 TD/TT: 09/23/24 1041 Molding Sander: Farhana Horn DO IMG BI PROCEDURES Edited Res ult - Final * Hm Colonoscopy (01/27/2019 8:43 AM EDT) Historical Provider MD HEALTH MAINTENANCE Final Result from Last 3 Months or Most Recently Relevant to Health Maintenance Additional Health Concerns Active Problems Noted Date Diagnosed Date Help patients manage their type 2 diabetes 07/21 Weekly blood pressure task 07/21/2025 Help patients manage their type 2 diabetes 07/21 Patient has chronic kidney disease 07/21/[address] [place] [address] C3 Care Teams Account Resolution Specialist Relationship Specialty Start Date End Date Farhana Horn DO [address] [place] [phone] PCP - General Family Medicine 09/09/18 Tyshawn Yap Cut Plug PackerCut Off Saw Operator 06/14/25
--- OUTSIDE RECORDS SUMMARY | 2025-08-24 14:24 | XMS_ITS | Clinical Summary ---
Author Organization [facility] Address [address] [facility] [address] [place] [phone] Phone Care Team Providers Care Administrative Office Specialist Name Role Phone Farhana Horn Primary Care Provider +[phone]- [phone] Allergies Active Allergy Reactions Criticality Noted Date [...] file Medical Devices Not on file [place] [address] NON NSPG PCP [facility] [employer] [address] NON NSPG PCP [facility] [employer] [facility] [employer] NON NSPG PCP S[facility] CONNE[facility]ARE [facility] NON NSPG PCP S[facility] NON NSPG PCP S[facility] CONNE[employer]CARE [place] NON NSPG PCP S[employer] CONNE[employer]CARE [place] NON NSPG PCP S[employer] CONNE[employer]CARE [place] NON NSPG PCP S[employer]ARE [employer] NON NSPG PCP [employer] Care Teams Administrative Office Specialist Relationship Specialty Start Date End Date Farhana Horn DO [address] [place] [phone] PCP - General Family Medicine 01/15/18 Additional Source Comments The information contained in this document represents components of the legal health record. It is not the complete legal health record.[facility]
--- OUTSIDE RECORDS SUMMARY | 2025-08-24 14:25 | XMS_ITS | Encounter Summary ---
Author Organization [employer] Address [address] [place] [address] 7 [place] [address] Care Team Providers Care Equipment Cleaner And Tester Name Role Phone Farhana Horn DO Primary Care Provider + [phone] Reason for Visit * Reason Comments Med Refill Encounter Details Date Type Department Care Team ([facility] st Contact Info) Description 02/11/2025 Refill [facility] [address] [place] [address] Farhana Horn DO [address] [place] [address] Social History Tobacco Use Types Packs/Day Years [...] Description 11/22/2025 10:30 AM EDT Office Visit [facility] [address] [place] [address] StevenDanette obrien, OD [address] [place] [address] documented as of this encounter Visit Diagnoses Not on filedocumented in this encounter Additional Health Concerns Assessment Noted Time PHQ-9 Depression Total Score: 13 025 10:22 AM EDT documented as of this encounter Care Teams Equipment Cleaner And Tester Relationship Specialty Start Date End Date Farhana Horn DO [address] [place] [address] PCP - General Family Medicine 09/09/18 Tyshawn Yap Production Maintenance MechanicSchool Age Program Teacher 06/14/25 documented as of this encounter
--- OUTSIDE RECORDS SUMMARY | 2025-08-24 14:25 | XMS_ITS | Encounter Summary ---
Author Organization [employer] Address [address] [place] [address] 7 [place] [address] Care Team Providers Care Research Project Coordinator Name Role Phone Farhana Horn DO Primary Care Provider + [phone] Reason for Visit * Reason Comments Med Refill Encounter Details Date Type Department Care Team ([facility] st Contact Info) Description 03/27/2025 Refill [facility] [address] [place] [address] Farhana Horn DO [address] [place] [address] Social History Tobacco Use Types Packs/Day Years [...] Description 11/22/2025 10:30 AM EDT Office Visit [facility] OPTOMET[facility] [address] [place] [address] StevenDanette obrien, OD [address] [place] [address] documented as of this encounter Visit Diagnoses Not on filedocumented in this encounter Additional Health Concerns Assessment Noted Time PHQ-9 Depression Total Score: 13 025 10:22 AM EDT documented as of this encounter Care Teams Research Project Coordinator Relationship Specialty Start Date End Date Farhana Horn DO [address] [place] [address] PCP - General Family Medicine 09/09/18 Tyshawn Yap Unit AideCabana Attendant 06/14/25 documented as of this encounter
--- OUTSIDE RECORDS SUMMARY | 2025-08-24 14:25 | XMS_ITS | Encounter Summary ---
Author Organization [employer] Address [address] [place] [address] [address] [place] [address] Care Team Providers Care Pipe Fitter Helper Name Role Phone LizFarhana key Primary Care Provider + [phone] Encounter Details Date Type Department Care Team ([facility] st Contact Info) Description 12/07/2024 Orders Only [facility] [address] [place] [address] Carmelita Kruse Social History Tobacco Use Types [...] t he electric, gas, oil or water [employer] threatened to shut off services in your [...] Description 11/22/2025 10:30 AM EDT Office Visit [facility] OPTOM[facility] [address] [place] [address] Steven, Megan, OD [address] [place] [address] documented as of this encounter Procedures Procedure Name Priority Date/Time Associated Diagnosis Comments COLPOSCOPY Routine 12/02/2024 12:00 AM EDT documented in this encounter Results * Colposcopy (12/02/2024 12:00 AM EDT) us Historical Provider MD IN CLINIC/BEDSIDE ORDERAB LES Final Result [facility] [address] [place] [address] [phone] documented in this encounter Visit Diagnoses Not on filedocumented in this encounter Additional Health Concerns Assessment Noted Time PHQ-9 Depression Total Score: 13 025 10:22 AM EDT documented as of this encounter Care Teams Pipe Fitter Helper Relationship Specialty Start Date End Date Farhana Horn DO [address] [place] [address] PCP - General Family Medicine 09/09/18 Tyshawn Yap Job CoachingLag Screwer 06/14/25 documented as of this encounter
--- OUTSIDE RECORDS SUMMARY | 2025-08-24 14:25 | XMS_ITS | Encounter Summary ---
Author Organization [employer] Address [address] [place] [address] [place] [address] Care Team Providers Care Strategic Business Development Name Role Phone Farhana Horn DO Primary Care Provider + [phone] Encounter Details Date Type Department Care Team (Late st Contact Info) Description 09/12/2022 Orders Only [facility] [address] [place] [address] Farhana Horn DO [address] [place] [address] Social History Tobacco Use Types Packs/Day Years [...] Description 11/22/2025 10:30 AM EDT Office Visit [facility] [address] [place] [address] Steven, Danette, OD [address] [place] [address] documented as of this encounter Visit Diagnoses Not on filedocumented in this encounter Care Teams Strategic Business Development Relationship Specialty Start Date End Date Farhana Horn DO [address] [place] [address] PCP - General Family Medicine 09/09/18 Tyshawn Yap Barrel RiflerPalliative Medicine Physician 06/14/25 documented as of this encounter
--- OUTSIDE RECORDS SUMMARY | 2025-08-24 14:25 | XMS_ITS | Encounter Summary ---
Author Organization [employer] Address [address] [place] [address] 7 [place] [address] Care Team Providers Care Planner Internship Name Role Phone Farhana Horn DO Primary Care Provider + [phone] Encounter Details Date Type Department Care Team (Latest Contact Info) Description 10/16/2019 Abstract [facility] CONVERSIONS Dental, Provider, DDS Social History [...] Description 11/22/2025 10:30 AM EDT Office Visit [facility] OPTOMETRY [address] [place] [address] Steven, Danette, OD [address] [place] [address] documented as of this encounter Visit Diagnoses Not on filedocumented in this encounter Care Teams Planner Internship Relationship Specialty Start Date End Date Farhana Horn DO [address] [place] [address] PCP - General Family Medicine 09/09/18 Tyshawn Yap Chief EmbalmerCell Tender Helper 06/14/25 documented as of this encounter
== END 2025-08-24 10:59 | disposition home or self-care (01) ==
LOC: HO.RESP 10:58
PROVIDERS: PCP Family Medicine; Visit Provider Family Medicine
DX: R06.09 Other forms of dyspnea (principal); R09.02 Hypoxemia
CPT/HCPCS: 94060; 94640; 94727; 94729

== ENCOUNTER → 2025-08-24 11:09 | Outpatient (BNV) | payer MEDICAID, SELFPAY | PROVIDERS: PCP Family Medicine; Visit Provider Internal Medicine Pulmonary Disease | DX: R06.09 Other forms of dyspnea (principal) | CPT/HCPCS: 94060; 94727; 94729 ==

== ENCOUNTER 2025-09-06 11:32 | Outpatient (REF) | payer MEDICAID, SELFPAY ==
--- OUTSIDE RECORDS SUMMARY | 2025-09-06 10:20 | XMS_ITS | Encounter Summary ---
Author Organization [employer] Address [address] [place] [address] [address] [place] [address] Care Team Providers Care Cisco Consultant Name Role Phone Juliana Hornfer Primary Care Provider + [phone] Reason for Referral * Imaging (Urgent) - Authorized Specialty Diagnoses / Procedures Referred By Sidney randall Referred To Contact Radiology Diagnoses Sensation of foreign body in esophagus Procedures Modified Barium Swallow W/ Speech Fartun Martin NP [address] [place] [address] Phone: tel: fax: [facility] [address] [place] [id number] Phone: tel: fax: Referral ID Status Reason Start Date Expiration Date Visits Requested Visits Authorized [id number] Authorized Perform Procedure 09/06/2026 1 1 Reason for Visit * Reason Comments Rash Sore throat Encounter Details Date Type Department Care Team (Late st Contact Info) Description 09/06/2025 10:20 AM EST Office Visit [facility] [address] [place], [place] [phone] Rash (Primary Dx); Tenderness of neck; Sensation of foreign body in esophagus; Elevated blood pressure reading in office with diagnosis of hypertension Social History Tobacco Use Types Packs/Day Years [...] Sign Reading Time Taken Comments Blood Pressure 150/82 09/06/2025 11:19 AM EST Pulse 71 09/06/2025 10:54 AM EST Temperature 36.2 C (97.1 F) 09/06/2025 10:54 AM EST Respiratory Rate 17 09/06/2025 10:54 AM EST Oxygen Saturation 95% 09/06/2025 10:54 AM EST Inhaled Oxygen Concentration - - Weight 73.9 kg (163 lb) 09/06/2025 10:54 AM EST Height 152.4 cm (5') 09/06/2025 10:54 AM EST Body Mass Index 31.83 09/06/2025 10:54 AM EST documented in this encounter Plan of Treatment Upcoming Encounters Date Type Department Care Team (Late st Contact Info) Description 09/08/2025 11:00 AM EST Clinical Support [facility] MEDICINE [address] [place] [address] 11/22/2025 10:30 AM EDT Office Visit [facility] OPTOMETRY [address] [place] [address] Steven, Danette, OD [address] [place] [address] Scheduled Orders Name Type Priority Associated Diagnoses Orde r Schedule Modified Barium Swallow W/ Speech Imaging Urgent Sensation of foreign body in esophagus Expected: 09/06/2025, Expires: 09/06/2026 TSH W/Reflex to FT4 Lab Routine Tenderness of neck Expected: 09/06/2025 (Approximate), Expires: 09/06/2026 documented as of this encounter Goals Goal Patient Goal Type Associated Problems Recent Progress Patient-Stated? Author Help patients manage their type 2 diabetes Care Plan Help patients manage their type 2 diabetes Taylor Pinon Weekly blood pressure task Care Plan Weekly blood pressure task No Taylor Saunders Help patients manage their type 2 diabetes Care Plan Help patients manage their type 2 diabetes Taylor Pinon Patient has chronic kidney disease Care Plan Patient has chronic kidney disease Taylor Pinon Weekly blood pressure task Care Plan Weekly blood pressure task Gopal Jaimes [place] Weekly blood pressure task Care Plan Weekly blood pressure task No Gopal Abernathy [place] Patient has chronic kidney disease Care Plan Patient has chronic kidney disease Gopal Jaimes [place] Patient has chronic kidney disease Care Plan Patient has chronic kidney disease No Gopal Abernathy [place] documented as of this encounter Visit Diagnoses Diagnosis Rash- Primary Rash and other nonspecific skin eruption Tenderness of neck Sensation of foreign body in esophagus Elevated blood pressure reading in office with diagnosis of hypertension documented in this encounter Additional Health Concerns Active Problems Noted Date Diagnosed Date Help patients manage their type 2 diabetes 07/21 Weekly blood pressure task 07/21/2025 Help patients manage their type 2 diabetes 07/21 Patient has chronic kidney disease 07/21/2025 Weekly blood pressure task 09/06/2025 Weekly blood pressure task 09/06/2025 Patient has chronic kidney disease 09/06/2025 Patient has chronic kidney disease 09/06/2025 Assessment Noted Time PHQ-9 Depression Total Score: 13 11/25/ 025 10:22 AM EDT documented as of this encounter Care Teams Cisco Consultant Relationship Specialty Start Date End Date Farhana Horn DO [address] [place] [address] PCP - General Family Medicine 09/09/18 Tyshawn Yap Intellectual Property LawyerLeather Grader 06/14/25 documented as of this encounter
--- OUTSIDE RECORDS SUMMARY | 2025-09-06 13:31 | XMS_ITS | Encounter Summary ---
Author Organization [employer] Address [address] [place] [address] [address] [address] Care Team Providers Care Icu Tech Name Role Phone Farhana Horn DO Primary Care Provider + [phone] Encounter Details Date Type Department Care Team (Late Contact Info) Description 09/12/2022 Orders Only [facility] [address] [place] [address] Farhana Horn DO [address] [place] [address] Social History Tobacco Use Types Packs/Day Years [...] Description 09/08/2025 11:00 AM EST Clinical Support [facility] [address] [place] [address] 11/22/2025 10:30 AM EDT Office Visit [facility] OPT[facility] [address] [place] [address] Danette Harris, OD [address] [place] [address] documented as of this encounter Visit Diagnoses Not on filedocumented in this encounter Care Teams Icu Tech Relationship Specialty Start Date End Date Farhana Horn DO [address] [place] [address] PCP - General Family Medicine 09/09/18 Tyshawn Yap Item ProcessorPipe And Test Supervisor 06/14/25 documented as of this encounter
--- OUTSIDE RECORDS SUMMARY | 2025-09-06 13:31 | XMS_ITS | Encounter Summary ---
Author Organization [employer] Address [address] [place] [address] [address] [place] [address] Care Team Providers Care Motorcycle Mechanic Name Role Phone KoryFarhana Primary Care Provider + [phone] Encounter Details Date Type Department Care Team ([facility] st Contact Info) Description 12/20/[address] [facility] MEDICINE [address] [place] [address] ProviderPantera MD Social History Tobacco Use Types [...] the past 12 months, has t he REVENTIVE, gas, oil or water [employer] threatened to shut off services in your [...] Description 09/08/2025 11:00 AM EST Clinical Support [facility] MEDICINE [address] [place] [address] 11/22/2025 10:30 AM EDT Office Visit [facility] OPTOMETRY [address] [place] [address] Steven, Danette, OD [address] [place] [address] documented as of this encounter Procedures Procedure Name Priority Date/Time Associated Diagnosis Comments HM COLONOSCOPY Routine 01/27/2019 8:43 AM EDT documented in this encounter Results * Hm Colonoscopy (01/27/2019 8:43 AM EDT) Historical Provider HEALTH MAINTENANCE Final Result documented in this encounter Visit Diagnoses Not on filedocumented in this encounter Additional Health Concerns Assessment Noted Time PHQ-9 Depression Total Score: 4 12/09/19 24 10:18 AM EDT documented as of this encounter Care Teams Motorcycle Mechanic Relationship Specialty Start Date End Date Farhana Horn DO [address] [place] [address] PCP - General Family Medicine 09/09/18 Tyshawn Yap ResearcherHealth Information Specialist 06/14/25 documented as of this encounter
--- OUTSIDE RECORDS SUMMARY | 2025-09-06 13:31 | XMS_ITS | Clinical Summary ---
Author Organization [employer] Address [address] [place] [address] 7 [place] [address] Care Team Providers Care Mold Closer Name Role Phone ZeeFarhana snyder Primary Care Provider + [phone] Allergies Active Allergy Reactions Criticality Noted Date Comments Lisinopril Cough 11/16/2010 Penicillins 09/07/2014 Medications * This document contains information received from the source organization and may not represent a complete record from that organization. amitriptyline (Elavil) 150 MG tablet TOME TIERA TABLETA VIA ORAL AL ACOSTARSE 04/18/20 23 Active senna (Senokot) 8.6 MG tablet TOME DOS TABLETAS VIA ORAL CADA JADYN AL ACOSTARSE 02/25/20 23 Active sucralfate (Carafate) 1 g tablet TOME TIERA TABLETA VIA ORAL AL ACOSTARSE 03/31/20 23 Active propranolol LA (Inderal LA) 120 MG 24 hr capsule TOME TIERA CAPSULA VIA ORAL CADA JADYN 02/29/20 23 Active GAS RELIEF 125 MG capsule TAKE ONE CAPSULE BY MOUTH 2 TO 4 TIMES A DAY NEEDED FOR ABDOMINAL DISTENTION. 04/26/20 23 Active Diclofenac Sodium 1 % gelIndications:Pa in apply (2G) by topical route 2 times every day to the affected area(s) as needed for Pain 100 g 1 05/22/20 23 Active ondansetron (Zofran) 4 MG tablet TOME TIERA TABLETA VIA ORAL CADA 8 HORAS LAMINE SEA NECESARIO PARA LAS NAUSEAS Y LOS VOMITOS 20 tablet 1 07/26/20 23 Active pyridoxine (Vitamin B-6) 100 MG tablet TAKE 1 TABLET BY MOUTH EVERY DAY 90 tablet 1 08/08/20 23 Active Calcium Carb-Cholecalcife rol 600-10 MG-MCG tabletIndications :Osteopenia, unspecified location Take 1 tablet by mouth 2 times daily. 60 tablet 11 09/12/19 24 Active baclofen (Lioresal) 20 MG tablet take 1 tablet by oral route 3 times every day as needed for MM SPASM/PAIN 60 tablet 5 06/02/20 24 Active gabapentin (Neurontin) 400 MG capsule TAKE ONE CAPSULE BY MOUTH TWICE A DAY AND TAKE TWO CAPSULES AT BEDTIME. 120 capsule 5 09/22/19 25 Active meclizine (Antivert) 25 MG tablet TAKE 1 TABLET BY MOUTH IF NEEDED IN THE MORNING, AT NOON AND AT BEDTIME FOR DIZZINESS 30 tablet 2 10/23/19 25 Active loratadine (Claritin) 10 MG tabletIndications :Seasonal allergic rhinitis, unspecified trigger TAKE ONE TABLET BY MOUTH EVERY DAY IN THE MORNING 90 tablet 3 10/23/19 25 Active bisacodyl (Dulcolax) 5 MG EC tablet Take 10 mg by mouth. 11/02/19 25 Active Citrucel 500 MG tablet TAKE 1 TABLET BY MOUTH DAILY; TAKE IT WITH A FULL GLASS OF WATER. 11/02/19 25 Active cholecalciferol (Vitamin D-3) 50 MCG (2000 UT) capsule Take 1 capsule (50 mcg) by mouth Once per day. 30 capsule 11/25/19 25 2025 Active Lancets misc Use to test blood sugar 2 times daily 100 each 01/19/20 25 Active Alcohol Swabs 70 % pads Use to test blood sugar 2 times daily 100 each 01/19/20 Active Blood Pressure kit 1 each 1 (one) time per week. 1 kit 01/19/20 25 Active Blood Glucose Monitoring Suppl (FreeStyle [place] Lite) w/Device kit Use to test blood sugar 2 times daily 1 kit 01/23/20 25 Active FREESTYLE LITE test strip Use to test blood sugar 2 times daily 100 each 01/23/20 25 2025 Active gabapentin (Neurontin) 300 MG capsule TOME TIERA CAPSULA VIA ORAL DOS VECES AL JADYN AND TAKE 2 CAPSULES AT BEDTIME DIRECTED 01/21/20 25 Active lansoprazole (Prevacid) [address] capsule TOME TIERA CAPSULA VIA ORAL CADA JADYN 11/21/19 25 Active magnesium oxide (Mag-Ox) 400 MG tablet Take 1 tablet (400 mg) by mouth Once per day. 30 tablet 11 01/30/20 25 2025 Active acetaminophen (Tylenol 8 Hour) 650 MG ER tabletIndications :Pain take 1 Tablet by oral route every 8 hours as needed as needed for PAIN AND/OR FEVER 100 tablet 1 03/22/20 Active meloxicam (Mobic) 15 MG tablet Take 1 tablet (15 mg) by mouth Once per day. 30 tablet 03/22/20 25 2025 Active butalbital-acetam inophen-caffeine 50-325-40 MG tablet Take 1 tablet by mouth every 4 (four) hours if needed for headaches or migraine. 20 tablet 2 04/27/20 25 Active Pain Reliever Plus 250-250-65 MG tablet TAKE ONE TABLET BY MOUTH EVERY 6 HOURS NEEDED FOR HEADACHES FOR UP TO 10 DAYS 30 tablet 05/13/20 Active atorvastatin (Lipitor) 20 MG tabletIndications :Hyperlipidemia, unspecified hyperlipidemia type TAKE ONE TABLET BY MOUTH DAILY AT BEDTIME 90 tablet 1 08/27/20 25 Active triamcinolone (Kenalog) 0.1 % ointmentIndicatio ns:Rash Apply topically if needed in the morning and at bedtime for rash. 30 g 09/06/20 25 Active triamcinolone (Kenalog) 0.1 % ointment Apply topically if needed in the morning and at bedtime for rash. 30 g 05/21/20 23 2024 Discontinued(R eorder (will not trigger notification to Pharmacy)) atorvastatin (Lipitor) 20 MG tabletIndications :Hyperlipidemia, unspecified hyperlipidemia type TAKE ONE TABLET BY MOUTH DAILY AT BEDTIME 90 tablet 1 12/30/19 25 2024 Discontinued Active Problems Problem Noted Date Diagnosed [...] completed the intake process with [facility] at [facility] after today's session. clinician will provide additional support to assess sxs and services in place. Pt agreed with the plan. Provided [facility] contact information. 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 -DEXA with osteopenia JUL 2023 -STI/HIV screen [...] nightly -s/p optho eval Apr 2023 at [facility] -foot exam next visit* Allergic rhinitis [...] -f/u with neurology as scheduled -advised contact [facility] if no improvement Irritable bowel syndrome [...] Encounters Date Type Department Care Team Description 09/06/2025 10:20 AM EST Office Visit [facility] [address] [place] [address] Rash (Primary Dx); Tenderness of neck; Sensation of foreign body in esophagus; Elevated blood pressure reading in office with diagnosis of hypertension 09/06/2025 Travel 08/27/2025 Refill [facility] [address] [place], [place] [phone] Farhana Horn DO Hyperlipidemia, unspecified hyperlipidemia type 07/20/2025 Orders Only [facility] [address] [place] [phone] Farhana Horn DO Ulnar neuropathy of both upper extremities (Primary Dx) 07/19/2025 Telephone [facility] [address] [place] [phone] Farhana Horn DO Pulse oximetry results 07/18/[address] [address] Farhana Horn DO Results 07/06/2025 Orders Only [address] [address] Farhana Horn DO Lung nodule (Primary Dx) 06/23/[address] [address] Farhana Horn DO Referral 06/14/2025 Telephone [facility] [address] [place] [address] Farhana Horn DO Care Coordination (ICP Care [...] is your housing situation today? I have magaliedevaughn miguel 11/04/[address] you [...] Mass Index 31.83 09/06/2025 10:54 AM EST Plan of Treatment Upcoming Encounters Date Type Department Care Team (Late st Contact Info) Description 09/08/2025 11:00 AM EST Clinical Support [facility] [address] [place] [address] 11/22/2025 10:30 AM EDT Office Visit [facility] [address] [place] [address] Steven, Danette, OD [address] [place] [address] Health Maintenance Due Date Last Done Comments [...] blood pressure task No Gopal Abernathy MA Weekly blood pressure task Care Plan Weekly blood pressure task No Gopal Abernathy MA Patient has chronic kidney disease Care Plan Patient has chronic kidney disease No Gopal Abernathy MA Patient has chronic kidney disease Care Plan Patient has chronic kidney disease No Gopal Abernathy MA Procedures Procedure Name Priority Date/Time Associated Diagnosis Comments LIPID PANEL, STANDARD Routine 04/27/2025 1:18 PM EDT Type 2 diabetes mellitus without complication, without long-term current use of insulin (CMS/FORMERLY [facility]) Essential hypertension Other hyperlipidemia Major depression, recurrent, [...] 1:18 PM EDT) Triglycerides 134 <150 mg/dL [facility] Comment:Desirable Triglyceri de: less than 150 mg/dLBorderline High Triglyceride 150-199 mg/dLHigh Triglyceride: 200-499 mg/dLVery High Triglyceride: greater than or equal to 5OO mg/dL Cholesterol 137 <200 mg/dL [facility] Comment:Desirable Cholestero l: less than 200 mg/dLBorderline High Cholesterol: 200-239 mg/dLHigh Cholesterol: greater than 239 mg/dL LDL Cholesterol Calculated 76 <100 mg/dL [facility] Comment:Desirable LDL: less than 100 mg/dLNear Optimal/Above Optimal LDL: 110- 129 mg/dLBorderline High LDL: 130-159 mg/dLHigh LDL: 160-189 mg/dLVery High LDL: greater than or equal to 190 mg/dL HDL Cholesterol 35(L) >40 mg/dL [facility] Comment:Desirable HDL: great er than 40 mg/dL Note: This HDL assay may give artificially low results in patients with liver disease. Blood Venous blood specimen / Unknown 04/27/2025 1:18 PM EDT 04/27/2025 4:17 PM EDT us Farhana Horn DO LAB BLOOD ORDERABLES Final R esult [facility] [address] [place] [phone] * (ABNORMAL) POCT HGB A1C (04/27/2025 11:29 AM EDT) Hemoglobin A1C 7.0(A) 4.0 - 5.7 % QC Media Lot # [id number] Lot# Expiration Date [id number] Blood 04/27/2025 11:2 9 AM EDT Farhana Horn DO POINT OF CARE TEST ENTER/PAUL T ORDERABLES Final Result * Fecal Globin By Immunochemistry (02/04/2025 12:00 AM EDT) Fecal Globin By Immunochemistry SEE NOTE [employer] Comment: FECAL GLOBIN BY IMMUNOCHEMISTRY Micro Number: [id number] Test Status: Final Specimen Source: Insure (tm) [...] FLUIDS AND STOOLS O RDERABLES Final Result [address], [place] [address] [employer] [facility] [employer] [address] [place] [address] * Albumin, Random Urine W/Creatinine (01/29/2025 11:23 AM EDT) Creatinine, Urine 174.41 mg/dL [facility] Microalbumin Urine 12.0 mg/L [facility] Microalbum Creatinine Ratio Ur 6.8 <30 ug/mg cr [facility] Comment:Albumin/Creatinine R at Reference Ranges: Normal: < 30 ug/mg creatinine Microalbuminuria: 30 - 300 ug/mg creatinineClinical Albuminuria: > 300 ug/mg creatinine Urine (Urine, Random) 01/29/2025 11:23 AM EDT 01/29/2025 1:03 PM EDT Farhana Horn LAB URINE ORDERABLES Final R esult Performing Organization Address [facility] Co de Phone Number [facility] [address] [place] [phone] * Hepatitis C Antibody with Reflex to HCV, RNA, Quantitative, Real-Time PCR (01/29/2025 11:23 AM EDT) Hepatitis C Antibody Nonreactive Nonreactive [facility] Comment:Antibodies to HCV no t detected; does not exclude early acuteHCV infection. Blood Venous blood specimen / Unknown 01/29/2025 11:23 AM EDT 01/29/2025 1:24 PM EDT Farhana Horn LAB BLOOD ORDERABLES Final R esult Performing Organization Address [facility] Co de Phone Number [facility] [address] [place] [phone] * HIV-1/2 Antigen and Antibodies, Fourth Generation, with Reflexes (01/29/2025 11:23 AM EDT) Pathologist [facility] HIV AB/AG Nonreactive Nonreactive [facility] Comment:HIV-1 p24 Ag and/or HIV-1/HIV-2 Ab not detected.A test result that is nonreactive does not exclude thepossibility of exposure to or infection with HIV-1 and/orHIV-2. Nonreactive results in this assay for individualswith prior exposure to HIV-1 and/or HIV-2 may be due toantigen and antibody levels that are below the limit ofdetection of this assay.The HumanAPI HIV Ag/Ab Combo assay result andsupplemental assay results should be interpreted inconjunction with the patient's clinical presentation,history and other laboratory results. If the results areinconsistent with clinical evidence, additional testing issuggested to confirm the result. Blood Venous blood specimen / Unknown 01/29/2025 11:23 AM EDT 01/29/2025 1:24 PM EDT Farhana Horn DO LAB BLOOD ORDERABLES Final R esult Performing Organization Address [facility] Co de Phone Number [facility] [address] [place] [phone] * Colposcopy (12/02/2024 12:00 AM EDT) Historical Provider MD IN CLINIC/BEDSIDE ORDERAB LES Final Result Performing Organization Address [facility] Co de Phone Number [facility] [address] [place] [phone] * (ABNORMAL) HPV DNA, Low/High Risk (10/27/2024 9:07 AM EST) Pathologist [facility] HPV High Risk Positive(A) Negative [facility] HPV Genotype 16 Negative Negative [facility] HPV Genotype 18 Negative Negative [facility] Comment:HPV testing performe d at [facility] (CLIA#[id number]), [address] [place] [address].Testing for HPV was performed using the Milana [...] ORDERAB LES Final Result Performing Organization Address [facility] Co de Phone Number [facility] [address] [place] [phone] * Pap Smear (10/27/2024 9:07 AM EST) 10/27/2024 9:07 AM EST 10/27/2024 2:15 PM EST [facility] - 11/02/2024 3:56 PM EST ----- ------- Name: Tri Bowens Age/Sex: 53/F : 1970 Unit#: [id number] Attend Dr: Fabio Morin MD Re10/27/24 Status: DEP REF Location: .LNP Disch: ----- ------- SPEC : [id number] RECD: 10/27/24 STATUS: STEPHANIE GILL NUM: [id number] ANITA: 10/27/[address] [facility] [address]: Fabio Morin MD ENTERED: 10/27/24 SP TYPE: Pap Smr OTHR DR: Farhana Horn DO ORDERED: Pap Smear Interpretation Satisfactory for evaluation. Negative for intraepithelial lesion or malignancy. HPV High Risk: Positive HPV Genotyping 16: Negative HPV Genotyping 18: Negative Clinical Information LMP:[place] Previous PAP test:2019 Other surgery: Other history: Copies To: Farhana Horn DO [address] [address] Fabio Morin MD [facility] [address] [place] [phone] ----- ------- Signed (signature on file) Bailey Rose CT ([facility]) 11/02/24 1556 ----- ------- END OF REPORT us Generic External Data Provider LAB CYTOLOGY BROOKE GREY Final Result [facility] [address] [place] [address] [phone] * BI Mammogram Screening Tomosynthesis Bilateral (09/23/2024 10:30 AM EST) Anatomical Region Laterality Modality Breast Bilateral Mammography 09/23/2024 10:3 0 AM EST Narrative 10/04/2024 9:14 AM EST [facility] [address] [place] [address] [place] [address] Mammography Report Signed Patient: Tri Bowens MR#: [id number] 63 : 1970 Acct:[id number] Age/Sex: 53 / F ADM Date: 09/23/24 Loc: MARIO Attending Dr: Farhana Horn DO Ordering Physician: Farhana Horn DO Results: 1N egative Date of Service: 09/23/24 Follow Up: 1 Year From Orig inal Mammogram Procedure(s): MM tomosynthesis screening BI Accession Number(s): [id number] cc: Farhana Horn DO EXAMINATION: MM SCREENING [...] by: Francia Vázquez DO 10/04/2024 09:11 AM [facility] Dictated By: Francia Vázquez DO Signed By: <Electronically signed by Francia Vázquez DO in OV> 10/04/24 0911 DD/ 1030 TD/TT: 09/23/24 1041 Front Desk Clerk: Procedure Note Donotuseinterpreter, Image - 10/04/2024 [facility] [address] [place], [place] [address] Mammography Report Signed Patient: Tri Bowens#: [id number] 63 : 1970Acct:[id number] Age/Sex: 53 / FADM Date: 09/23/24 Loc: HO.MAMMO Attending Dr: Farhana Horn DO Ordering Physician: Farhana Hornults: 1N egative Date of Service: 09/23/24Follow Up: 1 Year From Orig inal Mammogram Procedure(s): MM tomosynthesis screening BI Accession Number(s): [id number] cc: Farhana Horn DO EXAMINATION: MM SCREENING [...] 10/04/24 0911 DD/ 1030 TD/TT: 09/23/24 1041 Front Desk Clerk: Farhana Horn DO IMG BI PROCEDURES Edited Res ult - Final * Hm Colonoscopy (01/27/2019 8:43 AM EDT) us Historical Provider MD HEALTH MAINTENANCE Final Result [...] 09/06/2025 Patient has chronic kidney disease 09/06/2025 Insurance [employer] [address] [place] [address] Care Teams Mold Closer Relationship Specialty Start Date End Date Farhana Horn DO [address] [place] [phone] PCP - General Family Medicine 09/09/18 Tyshawn Yap Body And Fender WorkerEnvironmental Services Coordinator 06/14/25
--- OUTSIDE RECORDS SUMMARY | 2025-09-06 13:31 | XMS_ITS | Encounter Summary ---
Author Organization [employer] Address [address] [place] [address] 7 [place] [address] Care Team Providers Care Sales And Marketing Intern Name Role Phone Farhana Horn DO Primary Care Provider + [phone] Reason for Visit * Reason Comments Med Refill Encounter Details Date Type Department Care Team ([facility] st Contact Info) Description 02/11/2025 Refill [facility] [address] [place] [address] Farhana Horn DO [address] [place] [address] Social History Tobacco Use Types Packs/Day Years [...] Description 09/08/2025 11:00 AM EST Clinical Support [facility] [address] [place] [address] 11/22/2025 10:30 AM EDT Office Visit [facility] [address] [place] [address] Steven, Danette, OD [address] [place] [address] documented as of this encounter Visit Diagnoses Not on filedocumented in this encounter Additional Health Concerns Assessment Noted Time PHQ-9 Depression Total Score: 13 025 10:22 AM EDT documented as of this encounter Care Teams Sales And Marketing Intern Relationship Specialty Start Date End Date Farhana Horn DO [address] [place] [address] PCP - General Family Medicine 09/09/18 Tyshawn Yap Yarding EngineerCook Helper Fruit 06/14/25 documented as of this encounter
--- OUTSIDE RECORDS SUMMARY | 2025-09-06 13:31 | XMS_ITS | Encounter Summary ---
Author Organization [employer] Address [address] [place] [address] 7t [place] [address] Care Team Providers Care Acoustical Tile Drill Press Operator Name Role Phone Farhana Horn Primary Care Provider + [phone] Encounter Details Date Type Department Care Team (Latest Contact Info) Description 09/06/2025 Travel Social History Tobacco Use Types Packs/Day [...] Description 09/08/2025 11:00 AM EST Clinical Support [facility] [address] [place] [address] 11/22/2025 10:30 AM EDT Office Visit [facility] [address] [place] [address] Steven, Danette, OD [address] [place] [address] documented as of this encounter Goals Goal [...] filedocumented in this encounter Additional Health Concerns Active [...] documented as of this encounter Care Teams Acoustical Tile Drill Press Operator Relationship Specialty Start Date End Date Farhana Horn DO [address] [place] [address] PCP - General Family Medicine 09/09/18 Tyshawn Yap Rougher Merchant MillSide Stapler 06/14/25 documented as of this encounter
--- OUTSIDE RECORDS SUMMARY | 2025-09-06 13:31 | XMS_ITS | Encounter Summary ---
Author Organization [employer] Address [address] [place] [address] 7t [place] [address] Care Team Providers Care Food Processing Scientist Name Role Phone LizFarhana key Primary Care Provider + [phone] Encounter Details Date Type Department Care Team ([facility] st Contact Info) Description 12/07/2024 Orders Only [facility] [address] [place] [address] Carmelita Kruse Social History Tobacco Use Types [...] t he electric, gas, oil or water [employer] threatened to shut off services in your [...] Description 09/08/2025 11:00 AM EST Clinical Support [facility] [address] [place] [address] 11/22/2025 10:30 AM EDT Office Visit [facility] [address] [place] [address] Danette Harris, OD [address] [place] [address] documented as of this encounter Procedures Procedure Name Priority Date/Time Associated Diagnosis Comments COLPOSCOPY Routine 12/02/2024 12:00 AM EDT documented in this encounter Results * Colposcopy (12/02/2024 12:00 AM EDT) us Historical Provider MD IN CLINIC/BEDSIDE ORDERAB LES Final Result Performing Organization Address City/State/[facility] Co de Phone Number [facility] [address] [place] [phone] documented in this encounter Visit Diagnoses Not on filedocumented in this encounter Additional Health Concerns Assessment Noted Time PHQ-9 Depression Total Score: 13 025 10:22 AM EDT documented as of this encounter Care Teams Food Processing Scientist Relationship Specialty Start Date End Date Farhana Horn DO [address] [place] [address] PCP - General Family Medicine 09/09/18 Tyshawn Yap Research Compliance SpecialistSemiconductor Wafers Marker 06/14/25 documented as of this encounter
--- OUTSIDE RECORDS SUMMARY | 2025-09-06 13:31 | XMS_ITS | Data Portability ---
Author Organization [place] - [facility], Allergy Address [address] [address] Care Team Providers Care Parts Sales Manager Name Role Phone Unavailable Primary Care Provider [phone] Assessment Encounter Date Assessment Date Assessment LastModified by Organization Details LastModified Time 05/19/2025 05/19/2025 Small cyst in the right maxillary sinus. The MRI report from [place] dated February 07 demonstrates mucosal thickening and [...] By Organization Details Last Modified Time 05/19/2025 [id number] Monitor for any new or worsening symptoms. 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 - [facility] 5 15:58:53 Problem Notes None recorded. Medical Equipment None Reported. Allergies Allergen ID Allergen Name Allergen Category Reaction Reaction Severity Criticality Documentation Date Start Date Code Code System Note Provider Name and Address Organization Details Recorded Time 54673 Product containin g penicilli n (product) medicatio n other Not available Not available 01/21/2024 24700 8001 SNOMED React ion: other react ion, Unkno wn; Not Available Formerly [facility] 4 00:57:15 Medications Name Sig Start [...] suspensio n 05/19 completed Medicati on ID: [id number] B rand Name: Carafate Send Method: E-Prescr [...] eye drops 2020 active Medicati on ID: 842863 B rand Name: ketotife n fumarate Send Method: E-Prescr ibed Sub s Allowed: subs OK Speci al Instruct ion: INSTILL 1 DROP IN THE AFFECTED EYE(S) 2 TIMES A DAY NEEDED FOR ITCHING. Medicat ionGener icName: ketotife n fumarate Not Available Not Available Not Available senna 8.6 mg tablet 2020 active Medicati on ID: [id number] B rand Name: senna Se nd Method: [...] mg tablet 05/19 completed Medicati on ID: [id number] B rand Name: ondanset masha HCl Send Method: E-Prescr ibed Sub s Allowed: subs OK Speci al Instruct ion: TOME TIERA TABLETA VIA ORAL CADA 8 HORAS LAMINE SEA NECESARI O PARA LAS NAUSEAS Y LOS VOMITOS Medicati onGeneri cName: ondanset masha HCl Not Available Not Available Not Available prednison e 20 mg tablet 01/23 completed Medicati on ID: [id number] B rand Name: predniso ne Send Method: E-Prescr ibed Sub s Allowed: subs OK Speci al Instruct ion: TAKE 3 TABLETS DAILY X 3 DAYS THEN TAKE 2 TABLETS DAILY X 3 DAYS THEN TAKE 1 TABLET DAILY X 3 DAYS Med icationG enericNa me: predniso ne Not Available Not Available Not Available clonazepa m 0.5 mg tablet 2020 active Medicati on ID: [id number] B rand Name: clonazep am Send Method: [...] mg tablet 05/19 completed Medicati on ID: [id number] B rand Name: simvasta tin Send Method: [...] mg tablet 05/19 completed Medicati on ID: [id number] B rand Name: tramadol Send Method: E-Prescr [...] mg tablet 05/19 completed Medicati on ID: [id number] B rand Name: baclofen Send Method: E-Prescr ibed Sub s Allowed: subs OK Speci al Instruct ion: TOME TIERA TABLETA VIA ORAL ROSALVA VECES AL JADYN LAMINE SEA NECESARI O FOR MUSCLE SPASM/PA IN Medic ationGen ericName : baclofen Not Available Not Available Not Available Mi-Acid Gas Relief (simethic one) 80 mg chewable tablet 05/19 completed Medicati on ID: [id number] B rand Name: Mi-Acid Gas Relief(s imethico n) Send Method: E-Prescr ibed Sub s Allowed: subs OK Speci al Instruct ion: MASTIQUE Y TRAGUE TIERA TABLETA VIA ORAL CUATRO VECES AL JADYN DESPUES DE LAS COMIDAS Medicati onGeneri cName: Mi-Acid Gas Relief(s imethico n) Not Available Not Available Not Available famotidin e 20 mg tablet 05/19 completed Medicati on ID: [id number] B rand Name: famotidi ne Send Method: [...] mg capsule 01/23 completed Medicati on ID: [id number] B rand Name: cephalex in Send Method: E-Prescr ibed Sub s Allowed: subs OK Speci al Instruct ion: TAKE 1 CAPSULE EVERY 12 HOURS BY MOUTH Me dication GenericN candice: cephalex in Not Available Not Available Not Available pantopraz ole 40 mg tablet,de layed release 05/19 completed Medicati on ID: [id number] B rand Name: pantopra zole Sen d [...] mg capsule 05/19 completed Medicati on ID: [id number] B rand Name: docusate sodium S end [...] elayed release 01/23 completed Medicati on ID: 483762 B rand Name: omeprazo le Send Method: [...] unit) capsule 2020 active Medicati on ID: 311326 B rand Name: ergocalc iferol (vitamin D2) [...] VIA ORAL CADA JADYN EN [facility] active Not Available Not Available No t Available naproxen 500 mg tablet 2020 active Medicati on ID: 766865 B rand Name: naproxen Send Method: E-Prescr ibed Sub s Allowed: subs OK Speci al Instruct ion: TAKE ONE TABLET BY MOUTH TWICE A DAY WITH FOOD ONLY NEEDED M edicatio nGeneric Name: naproxen Not Available Not Available Not Available oxycodone 5 mg tablet 01/23 completed Medicati on ID: [id number] B rand Name: oxycodon e Send Method: [...] mg tablet 2020 active Medicati on ID: 982371 B rand Name: Pain Relief Extra Strength [...] Available Not Available No t Available FreeStyle [place] Lite kit USE DIRECTED TO TEST BLOOD SUGAR TWICE DAILY active Not Available Not Available No t Available diclofena c 1 % topical gel 01/23 completed Medicati on ID: [id number] B rand Name: diclofen ac sodium S [...] Updated DateTime 05/19/2025 152.4 cm 31.2 kg/m2 59080.78 g EDIE OSORIO [place] - [facility] 05/19/2025 15:41:37 Social History None recorded. Functional Status None recorded. Mental Status None recorded. Family History Nothing Reported. Medical History No medical history recorded. Gynecological HistoryNo gynecological history recorded. Obstetrics History GPAL:G 0 P 0 0 0 0 Past Encounters Encounter ID Performer Location Encounter Start Date Encounter Closed Date Diagnosis/Indication Diagnosis SNOMED-CT Code Diagnosis ICD10 Code Diagnosis IMO Codes Diagnosis Note [id number] SILVIO CONNOLLY MD [facility] [address] [address] 05/19/2025 14:57:47 05/19/2025 15:59:01 Mucocele of maxillary sinus [id number] J34.1 0559793 Health Concerns Section Related Observation LastModified by Organization Detai ls LastModified Time None Recorded Concern Status LastModified by Organization Details LastModified Time None Recorded Advance Directives Directive None Recorded Payers Insurance Date Sequence Insurance Name Policy Number Policy Saucedo Covered Member ID Saucedo Member ID Guarantor Name 05/19/2025 1 [place] [facility] Tri Bowens [id number] Tri Bowens Notes Date Note Type Note Provider Name and Address Organization Details Recorded Time 05/19/2025 text/html ROS as noted in the HPI pharmacy innovation assistant - friend right max sinus cyst 02/07/25 [place], MRI head non contrast mucosal thickening and retention cyst in right max sinus Tri Bowens is a 54-year-old female who presents for evaluation of a small cyst in the right maxillary sinus identified on an MRI performed in [place] in February. The patient reports no current symptoms such as nasal bleeding or issues with her sense of smell. She previously received antibiotics for a suspected infection, which resulted in improvement. She denies any history of nasal surgery. SILVIO CONNOLLY MD [address] [place] [address], [place], [address], [facility] - [facility] 05/19/2025 15:59:49 OBGyn Episode No OBEpisode recorded.
--- OUTSIDE RECORDS SUMMARY | 2025-09-06 13:31 | XMS_ITS | Clinical Summary ---
Author Organization [facility] Address [address] [place] [address] Phone Care Team Providers Care Sales And Events Coordinator Name Role Phone Farhana Horn Primary Care Provider [phone] Allergies Active Allergy Reactions Criticality Noted Date [...] file Medical Devices Not on file [place] [address] [place] [address] NON NSPG PCP [employer] [place] [address] [place] [address] NON NSPG PCP [employer] NON NSPG PCP S[employer] [facility] NON NSPG PCP [facility] [facility] NON NSPG PCP S[employer] NON NSPG PCP [employer] NON NSPG PCP [employer] NON NSPG PCP S[employer] NON NSPG PCP [employer] Care Teams Sales And Events Coordinator Relationship Specialty Start Date End Date Farhana Horn DO [address] [place] [address] PCP - General Family Medicine 01/15/18 Additional Source Comments The information contained in this document represents components of the legal health record. It is not the complete legal health record.[facility]
--- OUTSIDE RECORDS SUMMARY | 2025-09-06 13:31 | XMS_ITS | Encounter Summary ---
Author Organization [employer] Address [address] [place] [address] [address] [place] [address] Care Team Providers Care Flush Tester Name Role Phone Farhana Horn DO Primary Care Provider + [phone] Encounter Details Date Type Department Care Team ([facility] st Contact Info) Description 08/08/2023 Telephone [facility] MEDICINE [address] [place] [address] Farhana Horn DO [address] [place] [address] Social History Tobacco Use Types Packs/Day Years [...] t he electric, gas, oil or water VYou threatened to shut off services in your [...] encounter Miscellaneous Notes * Telephone Encounter - Barberannette Stone - 08/08/2023 9:58 AM EST Tc from pt called in inquiring about scheduling MR Ankle w/o contrast on 07/26/23 documented in this encounter Plan of Treatment Upcoming Encounters Date Type Department Care Team (Late st Contact Info) Description 09/08/2025 11:00 AM EST Clinical Support [facility] [address] [place] [address] 11/22/2025 10:30 AM EDT Office Visit [facility] OPTOMETRY [address] [place] [address] Danette Harris, OD [address] [place] [address] documented as of this encounter Visit Diagnoses Not on filedocumented in this encounter Additional Health Concerns Assessment Noted Time PHQ-9 Depression Total Score: 24 023 11:05 AM EDT documented as of this encounter Care Teams Flush Tester Relationship Specialty Start Date End Date Farhana Horn DO [address] [place] [address] PCP - General Family Medicine 09/09/18 Tyshawn Yap Vp ProjectCalender Inspector 06/14/25 documented as of this encounter
--- OUTSIDE RECORDS SUMMARY | 2025-09-06 13:31 | XMS_ITS | Encounter Summary ---
Author Organization [employer] Address [address] [place] [address] 7 [place] [address] Care Team Providers Care Judicial Registrar Name Role Phone Farhana Horn DO Primary Care Provider + [phone] Encounter Details Date Type Department Care Team (Latest Contact Info) Description 10/16/2019 Abstract [facility] CONVERSIONS Dental, Provider, DDS Social [...] Description 09/08/2025 11:00 AM EST Clinical Support [facility] MEDICINE [address] [place] [address] 11/22/2025 10:30 AM EDT Office Visit [facility] OPTOMETRY [address] [place] [address] Steven, Danette, OD [address] [place] [address] documented as of this encounter Visit Diagnoses Not on filedocumented in this encounter Care Teams Judicial Registrar Relationship Specialty Start Date End Date Farhana Horn DO [address] [place] [address] PCP - General Family Medicine 09/09/18 Tyshawn Yap Material RequisitionerTelevision Schedule Coordinator 06/14/25 documented as of this encounter
--- OUTSIDE RECORDS SUMMARY | 2025-09-06 13:31 | XMS_ITS | Encounter Summary ---
Author Organization [employer] Address [address] [place] [address] 7 [address] [address] Care Team Providers Care Tree And Shrub Technician Name Role Phone LizFarhana key Primary Care Provider + [phone] Reason for Visit * Reason Comments Med Refill Encounter Details Date Type Department Care Team (Late Contact Info) Description 12/13/2022 Refill [facility] & PEDS [address] [place], [place] [phone] [facility] [address] [place] [address] Hyperlipidemia, unspecified hyperlipidemia type Social History Tobacco [...] Department Care Team (Late Contact Info) Description 09/08/2025 11:00 AM EST Clinical Support [facility] MEDICINE [address] [place] [address] 11/22/2025 10:30 AM EDT Office Visit [facility] OPTOMETRY [address] [place] [address] StevenDanette obrien, OD [address] [place] [address] documented as of this encounter Visit Diagnoses Diagnosis Hyperlipidemia, unspecified hyperlipidemia type documented in this encounter Care Teams Tree And Shrub Technician Relationship Specialty Start Date End Date Farhana Horn DO [address] [place] [address] PCP - General Family Medicine 09/09/18 Tyshawn Yap Drainage EngineerLens And Frames Prescription Clerk 06/14/25 documented as of this encounter
--- OUTSIDE RECORDS SUMMARY | 2025-09-06 13:31 | XMS_ITS | Encounter Summary ---
Author Organization [employer] Address [address] [place] [address] 7 [place] [address] Care Team Providers Care Drafting Layout Worker Name Role Phone Farhana Horn DO Primary Care Provider + [phone] Reason for Visit * Reason Comments Med Refill Encounter Details Date Type Department Care Team ([facility] st Contact Info) Description 03/27/2025 Refill [facility] MEDICINE [address] [place] [address] Farhana Horn DO [address] [place] [address] Social History Tobacco Use Types Packs/Day Years [...] 11:00 AM EST Clinical Support [facility] MEDICINE [address] [place] [address] 11/22/2025 10:30 AM EDT Office Visit [facility] OPTOMETRY [address] [place] [address] Steven, Danette, OD [address] [place] [address] documented as of this encounter Visit Diagnoses Not on filedocumented in this encounter Additional Health Concerns Assessment Noted Time PHQ-9 Depression Total Score: 13 025 10:22 AM EDT documented as of this encounter Care Teams Drafting Layout Worker Relationship Specialty Start Date End Date Fahrana Horn DO [address] [place] [address] PCP - General Family Medicine 09/09/18 Tyshawn Yap Surface Plate FinisherTariff Clerk 06/14/25 documented as of this encounter
== END 2025-09-06 11:33 ==
LOC: HO.HHCL 11:32
PROVIDERS: PCP Family Medicine; Visit Provider Nurse Practitioner
DX: M54.2 Cervicalgia (principal)
CPT/HCPCS: 36415; 84443